=== PATIENT | male | born 1960 | race Caucasian/White ===

== ENCOUNTER 2022-09-12 19:50 | Inpatient (IN) | payer OTHER, SELFPAY ==
[2022-09-12 20:48] VITALS: BP 155/87; PULSE 108; PULSE 117; RESP 12; RESP 16; TEMP 37.1; O2SAT 91; O2SAT 92; BMI 36.1
--- NOTE | 2022-09-12 21:40 | PCM.HP.STD ---
HPI - General General Date of Admission: 09/12/22 Date of Service: 09/13/22 Chief Complaint: Here for rehabilitation. HPI Narrative CHRISTIANO SCALES, is a 61 Male who presents with followin08/13/2022 Admit to [facility]. Abdominal pain for 3 days, Fever for [address] showed acute perforated sigmoid diverticulitis, 3.8cm collection of stool and gas with small amount of pneumoperitoneum. WBC 19.9, Temperature 101.2 Cipro, Flagyl, 1 liter fluid give at outside hospital. Left lower quadrant abdominal pain, nonperitoneal exam. Heart rate 130, Blood pressure 192/91. Start Zosyn, NPO, discussed with general surgery, 1 liter LR given. 08/19/2022 General Surgery performed second exploratory laparotomy, partial colectomy, colostomy. 08/23/2022 Pneumatosis status post exploratory laparotomy, partial colectomy, colostomy creation. 09/09/2022 Infectious Disease saw patient for perforated diverticulitis, covid-19 infection, respiratory failure, suspicion for aspiration pneumonia vs covid19, leukocytosis improved. Zosyn stopped, Meropenem stopped, Fluconazole stopped. Dexamethasone stopped. Chest X-ray showed increasing density opacity left lower lobe. Blood cultures no growth. Tmax 100.6. 09/11/2022 IR aspiration of abscess. Regular diet, Protonix bid. RUY drain x 2. Santyl, Dakins to wound bed bid. Done with antibiotics, f/u cultures from IR aspiration. Medical records limited. 09/12/2022 Admit to TCU with debility, here for rehabilitation, strengthening, prior to discharge home with . [facility] Medical History (Updated 09/12/22 @ 22:[address] Dennis Menezes MD) Acute kidney injury Acute respiratory failure with hypoxia Asthma Debility Diabetes mellitus Diverticulosis Hypertension Left inguinal hernia Perforation of sigmoid colon due to diverticulitis Pneumonia due to COVID-19 virus Home Medications acetaminophen 500 mg tablet 500 mg PO Q6H PRN pain (scale score 1-3) 09/12/22 [History Last Taken Unknown] collagenase clostridium histo. 250 unit/gram topical ointment (Santyl) 1 applic topical BID Wound 09/12/22 [History Last Taken 09/12/22 08:35] finasteride 5 mg tablet 5 mg PO DAILY BPH 09/12/22 [History Last Taken 09/12/22] insulin NPH isoph U-100 human 100 unit/mL (3 mL) subcutaneous pen (Humulin N NPH U-100 Insulin AlokikPen) 6 unit subcut BID Diabetes 09/12/22 [History Last Taken 09/12/22 08:35] losartan 100 mg tablet (Cozaar) 100 mg PO DAILY Blood pressure 09/12/22 [History Last Taken 09/12/22 12:30] oxycodone 5 mg tablet 5 mg PO Q6H PRN pain 09/12/22 [History Last Taken Unknown] pantoprazole 40 mg tablet,delayed release 40 mg PO BID GERD 09/12/22 [History Last Taken Unknown] polyethylene glycol 3350 17 gram oral powder packet 17 g PO DAILY Constipation 09/12/22 [History Last Taken 09/12/22 08:35] sodium hypochlorite 0.125 % solution (Dakin's Solution) 1 applic topical BID Wound 09/12/22 [History Last Taken Unknown] Allergy/AdvReac Type Severity Reaction Status Date / Time aspirin Allergy Intermediate Hives Verified 09/12/22 20:59 iodine Allergy Shortness Verified 09/12/22 20:58 of breath Family History (Updated 09/12/22 @ 21:[address] Dennis Menezes MD) Mother Breast cancer Father Myocardial infarction Hypertension Colon cancer Grandmother Diabetes Grandfather Diabetes Surgical History (Updated 09/12/22 @ 21:[address] Dennis Menezes MD) History of excision of dermoid cyst History of left inguinal hernia repair History of tooth extraction Social History (Updated 09/12/22 @ 21:[address] Dennis Menezes MD) household members: spouse Smoking Status: Never smoker alcohol intake: never substance use type: does not use ROS Constitutional Constitutional: Denies chills, fever(s) or weight gain ENT HEENT: Denies headache(s), nasal congestion or nasal discharge Cardiovascular Cardiovascular: Denies chest pain or palpitations Respiratory/Chest Respiratory/Chest: Denies cough, excessive phlegm production or shortness of breath with exertion Gastrointestinal Gastrointestinal: Denies abdominal pain, nausea or vomiting Genitourinary Genitourinary: Denies dysuria Musculoskeletal Musculoskeletal: Denies joint pain or joint swelling Integumentary Integumentary: Denies rash or wounds Neurologic Neurologic: Denies focal weakness, numbness or tingling Psychiatric Psychiatric: Denies anxiety, auditory hallucinations, depression, homicidal ideation or suicidal ideation Vital Signs Vital Signs Vital Signs: Weight Weight: 108.012 kg Body Mass Index (BMI) 36.1 Physical Exam Const alert General Appearance: cooperative HEENT normocephalic Eyes PERRL and EOMs intact bilaterally Neck supple, no JVD and no carotid bruits Resp normal respiratory effort, normal air movement and clear to auscultation bilaterally Cardio regular rate and regular rhythm GI normal to inspection, nondistended, normoactive bowel sounds, non-tender and non-distended GI Narrative: Midline Abdominal per wound nurse. Left lower quadrant colostomy, RUY drain present. Extremity normal capillary refill General Extremity: Negative for edema Skin no rashes or lesions noted General Skin Exam: no breakdown Psych affect normal Appearance: appropriate Results Lab / Micro Data 09/13/22 05:15 09/13/22 05:15 Assessment & Plan Assessment/Plan (1) Perforation of sigmoid colon due to diverticulitis: (2) Asthma: (3) Diabetes mellitus: (4) Diverticulosis: (5) Hypertension: (6) Left inguinal hernia: (7) Acute kidney injury: (8) Acute respiratory failure with hypoxia: (9) Pneumonia due to COVID-19 virus: (10) Debility: PLAN: Plan 61 year old male with below past medical history hospitalized for perforated diverticulitis requiring partial colectomy, colostomy, complicated by acute respiratory failure with hypoxia, covid19, acute kidney injury, intraabdominal abscess requiring IR aspiration, admitted to TCU with debility, here for rehabilitation, strengthening, prior to discharge home with . Debility - PT/OT. Pain - Tylenol 1000mg q6h prn pain (1-3), Tramadol 50mg q6h prn pain (4-5), Oxycodone 5mg q4h prn pain (6-10). Bowel - Miralax 17gm daily, Magnesium citrate 150ml po x 1 prn. Adult immunization - Administer pneumonia vaccine, covid19 vaccine, flu vaccine as appropriate. DVT prophylaxis - Lovenox 40mg sc daily. Abdominal wound - Santyl topical bid, Dakins topical bid, consult wound nurse. BPH - Finasteride 5mg daily. Diabetes Mellitus II - NPH 6 units bidac. Hypertension - Losartan 100mg daily. GERD - Pantoprazole 40mg bid.
[2022-09-12 22:10] LABS: Bedside Glucose 120 mg/dL (74-106)
[2022-09-12] MEDS: Collagenase 30gm Tube 1 APPLIC TOPICAL (23:08)
[2022-09-13 05:31] LABS: Absolute Lymphocyte Count 1.66 X10^3/uL (0.83-4.51); Absolute Neutrophil Count 6.2 X10^3/uL (2.0-7.7); Basophil# 0.05 X10^3/uL; Basophil% 0.5 % (0-1); Eosinophils% 1.1 % (0-5); Hematocrit 27.1 % (40-54); Hemoglobin 8.3 g/dL (13.0-16.5); Lymphocyte # 1.66 X10^3/ul (0.83-4.51); Lymphocyte % 17.8 % (19-41); Mean Corp Hgb Conc 30.6 g/dL (32-36); Mean Corpuscular Hgb 25.6 pg (27.0-32.0); Mean Corpuscular Volume 83.6 fL (80-94); Mean Platelet Vol. 8.6 fl (6.2-12.0); Monocyte# 1.04 X10^3/uL; Monocyte% 11.2 % (0-10); NRBC Flagged by Analyzer 0 % (0-5); Neutrophil % 66.7 % (47-70); Platelet Count 348 K/mm3 (150-450); RBC Distribution Width CV 14.9 % (11.6-14.6); RBC Distribution Width SD 45.3 fl (35.1-43.9); Red Blood Count 3.24 M/mm3 (4.6-6.2); White Blood Count 9.3 K/mm3 (4.4-11.0)
[2022-09-13 05:54] LABS: Anion Gap 9 (5-15); BUN 7 mg/dL (7-18); BUN/Creat Ratio 13.2 RATIO (10-20); Chloride 100 mmol/L (98-107); Creatinine, Serum 0.53 mg/dL (0.70-1.30); EST Glomerular Filtration Rate 167 mL/min (>60); Est Glom Filt Rate - Afr Amer 203 mL/min (>60); Glucose 116 mg/dL (74-106); Potassium 3.9 mmol/L (3.5-5.1); Sodium Level 134 mmol/L (136-145)
[2022-09-13 06:21] LABS: Bedside Glucose 123 mg/dL (74-106)
[2022-09-13] MEDS: Finasteride 5 MG Tablet PO (06:50)
[2022-09-13] MEDS: Polyethylene Glycol 3350 17 GM PACKET PO (06:50)
[2022-09-13] MEDS: Pantoprazole Sodium 40 MG Tablet PO ×2 (06:51→17:44)
[2022-09-13] MEDS: Enoxaparin 40 MG/0.4 ML Syringe SC (06:54)
[2022-09-13] MEDS: Insulin NPH Human 100 UNITS/ML PEN 6 UNITS SC ×2 (08:01→17:42)
[2022-09-13] MEDS: Tuberculin,Purif.prot.deriv. 50 TU/ML Vial 0.1 ML ID (10:48)
[2022-09-13] MEDS: Ascorbic Acid 500 MG Tablet PO (10:49)
[2022-09-13] MEDS: Collagenase 30gm Tube 1 APPLIC TOPICAL ×2 (11:01→22:00)
[2022-09-13 11:56] LABS: Bedside Glucose 122 mg/dL (74-106)
[2022-09-13] MEDS: Losartan Potassium 100 MG Tablet PO (12:48)
[2022-09-13 12:50] VITALS: BP 141/74; PULSE 102
[2022-09-13] MEDS: metroNIDAZOLE 500 MG Tablet PO ×2 (14:02→22:55)
[2022-09-13] MEDS: levoFLOXacin 500 MG Tablet PO (14:03)
--- NOTE | 2022-09-13 15:39 | CHAPLAIN ---
Type of Pastoral Visit _x__ Initial Visit ___ Follow-up Visit ___ On-call Visit ___ General Patient Visit ___ Spiritual Assessment ___ Family Conference ___ Bereavement ___ Rapid Response ___ Code Blue ___ Other (describe below) Pastoral Care Referral From _x__ Patient ___ Family ___ Nurse ___ Physician ___ Knockdown Worker ___ Mobile Manager ___ Other (describe below) Sacrament/Intervention _x__ Active listening ___ Anointing ___ Religious ___ Bereavement ___ Communion _x__ [place] exploration ___ _x__ Life review _x__ Prayer ___ Reconciliation ___ Sacrament of Sick _x__ Supportive presence ___ Wedding ___ Other (describe below) Pastoral Comments patient explains long hospitalization and now time for recovery and therapy; pt admits to some weariness over this experience and concern about recovery; spouse is with him and he expresses concern for family and taking care of him at this stage in his journey; pt has a good yazidi community foundation but also has concerns about the viability of that spiritism; pt has a new inflatable buildings laminator and he has shown good interest in being supportive; at times pt is tearful when expressing his feelings and situation; offer of presence and prayer is well received; 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
--- NOTE | 2022-09-13 15:39 | CASEMGMT ---
Social Work Met with patient to complete initial assessment. Verified/updated contacts. Discussed code status and MOLST form. Pt became emotional and did not want to make a decision, however, pt did voice not wanting to be on a ventilator again. SW provided emotional support. Educated to keeping pt a full code, but if pt changes his mind and ready to complete MOLST, to notify nursing or this worker. Pt agreed. Educated to MMO CM insurance with [employer]D 09/18, continued stay is not guaranteed with each review, and insurance does not provide any DC notice. SW will continue to follow for DC planning and support. Jordyn Colon ,MEDICAL ADMINISTRATIVE TECHNICIAN BOOKING MANAGER
[2022-09-13 16:00] VITALS: BP 127/68; PULSE 104; RESP 16; TEMP 36.6; O2SAT 95
--- NOTE | 2022-09-13 16:13 | NURSING ---
PT DRESSING FELL OUT WHEN DOING THERAPY FOR FIRST TIME. RN AND THIS NURSE IN ROOM TO REDO DRESSING. PT TO DO THERAPY AGAIN AND THIS NURSE PUT A MESH PANTY WITH CROTCH CUT OUT OVER DRESSING AREA AND APPLIED NATANAEL WRAP AROUND AREA LOOSELY. AFTER PT WALKED DRESSING STAYED THIS TIME. REMOVED NATANAEL WRAP WHEN PT IN RECLINER. THERE IS ALSO A BINDER IN PT CLOSET IF NEEDED. RN AWARE
--- NOTE | 2022-09-13 16:22 | PCM.PN.DRR ---
TCU RX Drug Regimen Review Subjective/Objective Subjective/Objective: Subjective: RD is a 61 Male who presents with abdominal pain for 3 days and fever for 1 day. He underwent general surgery on 08/23/22 for perforated sigmoid diverticulitis. Infectious Disease saw the patient on 09/09/22 for perforated diverticulitis, covid 19 infections, respiratory failure, and a suspicion for aspiration pneumonia. Admitted to the TCU on 09/12/22 for rehabilitation and strengthening prior to discharge with . Objective: Allergies aspirin Allergy (Intermediate, Verified 09/12/22 20:59) Hives Swelling Poultry Allergy (Unknown, Verified 09/13/22 13:52) Other iodine Allergy (Verified 09/12/22 20:58) Shortness of breath Current Medications Generic Name Dose Route Start Last Admin Trade Name Freq PRN Reason Stop Dose Admin Acetaminophen 1,000 mg 09/12/22 22:08 Acetaminophen 500 Mg Tablet PO Q6H PRN PRN pain (scale score 1-3) Ascorbic Acid 500 mg 09/13/22 08:00 09/13/22 10:49 Ascorbic Acid 500 Mg Tablet PO 500 mg BREAKFAST BRETT Administration Calamine/Phenol 1 applic 09/13/22 10:00 Menthol/Lanolin/Calamine/Znox 113 Gm Tube TOPICAL BID BRETT Protocol Collagenase 1 applic 09/12/22 22:00 09/13/22 11:01 Collagenase 30gm Tube TOPICAL 09/22/22 18:01 1 applic BID BRETT Administration Protocol Finasteride 5 mg 09/13/22 06:00 09/13/22 06:50 Finasteride 5 Mg Tablet PO 5 mg DAILY BRETT Administration Insulin Human NPH 6 units 09/13/22 07:00 09/13/22 08:01 Insulin Nph Human 100 Units/Ml Pen SC 6 u BIDAC BRETT Administration Levofloxacin 500 mg 09/13/22 12:00 09/13/22 14:03 Levofloxacin 500 Mg Tablet PO 09/27/22 12:01 500 mg DAILY@0600 BRETT Administration Losartan Potassium 100 mg 09/13/22 12:00 09/13/22 12:48 Losartan Potassium 100 Mg Tablet PO 100 mg 1200 BRETT Administration Magnesium Citrate 150 ml 09/12/22 22:07 Magnesium Citrate 300 Ml PO X1 PRN Constipation Metronidazole 500 mg 09/13/22 14:00 09/13/22 14:02 Metronidazole 500 Mg Tablet PO 09/27/22 14:01 500 mg TID BRETT Administration Oxycodone HCl 5 mg 09/12/22 22:08 Oxycodone 5 Mg Tablet PO Q4H PRN PRN Pain Score 6-10 Pantoprazole Sodium 40 mg 09/13/22 06:00 09/13/22 06:51 Pantoprazole Sodium 40 Mg Tablet PO 40 mg BID BRETT Administration Polyethylene Glycol 17 gm 09/13/22 06:00 09/13/22 06:50 Polyethylene Glycol 3350 17 Gm Packet PO 17 gm DAILY BRETT Administration Polysaccharide Iron Complex 150 mg 09/14/22 08:00 Iron Polysaccharide Complex 150 Mg Capsule PO DAILY [facility] Sodium Hypochlorite 1 applic 09/13/22 22:00 Dakin's Adrianna Half Strength (=0.25%) TOPICAL BID [facility] Tramadol HCl 50 mg 09/12/22 22:07 Tramadol 50 Mg Tablet PO Q6H PRN PRN Pain Score 4-5 Tuberculin PPD 0.1 ml 09/20/22 10:00 Tuberculin,Purif.Prot.Deriv. 50 Tu/Ml Vial ID 09/20/22 10:01 X1 ONE Problem List (Updated 09/12/22 @ 22:[address] Dennis Menezes MD) Debility (Acute) Pneumonia due to COVID-19 virus (Acute) Acute respiratory failure with hypoxia (Acute) Acute kidney injury (Acute) Left inguinal hernia (Acute) Hypertension (Chronic) Diverticulosis (Acute) Diabetes mellitus (Acute) Asthma (Acute) Perforation of sigmoid colon due to diverticulitis (Acute) Vital Signs Temp Pulse Resp BP Pulse Ox O2 Del Method 98.8 F 102 H 16 141/74 H 92 Room Air 09/12/22 20:48 09/13/22 12:50 09/12/22 20:48 09/13/22 12:50 09/12/22 20:48 09/12/22 20:48 Oxygen Delivery Method Room Air Weight: 108 kg Body Mass Index (BMI) 36.1 Sodium 134 mmol/L (136-145) L 09/13/22 05:15 Potassium 3.9 mmol/L (3.5-5.1) 09/13/22 05:15 Chloride 100 mmol/L (98-107) 09/13/22 05:15 Carbon Dioxide 25.0 mmol/L (21.0-32.0) 09/13/22 05:15 Anion Gap 9 (5-15) 09/13/22 05:15 BUN 7 mg/dL (7-18) 09/13/22 05:15 Creatinine 0.53 mg/dL (0.70-1.30) L 09/13/22 05:15 Est GFR (MDRD) Af Amer 203 mL/min (>60) 09/13/22 05:15 Est GFR (MDRD) Non-Af 167 mL/min (>60) 09/13/22 05:15 BUN/Creatinine Ratio 13.2 RATIO (10-20) 09/13/22 05:15 Glucose 116 mg/dL (74-106) H 09/13/22 05:15 Assessment & Plan 1. Pain: Tylenol 1000 mg PO Q6H PRN (pain 1-3). Tramadol 50 mg PO Q6H PRN (pain 4-5). Oxycodone 5 mg PO Q4H PRN (pain 6-10). Please monitor total daily intake of acetaminophen, pain levels, PRN usage, constipation, and respiratory depression. Please monitor for drowsiness and falls (BEERs medication). (The patient has not had any PRN pain medications since admission on 09/12).? 2. Bowel: Miralax 17 g PO daily. Magnesium citrate 150 mL PO PRN. Please monitor for constipation, diarrhea and electrolyte disturbances.? 3. DVT Prophylaxis: Lovenox 40 mg SC daily. Please monitor for S/S of bleeding, hemoglobin (last: 8.3 g/dL), platelets (last: 348,000) and bruising, renal function, confusion and anemia.? 4. Diabetes Mellitus II: NPH 6 units SC BIDAC. Please monitor A1c values, glucose values (last: 123 mg/dL), S/S of hypoglycemia and headache.? 5. Hypertension: Losartan 100 mg PO daily. Please monitor for dizziness, angioedema (black box warning), liver function, and blood pressure (last: 155/87).? 6. GERD: Pantoprazole 40 mg PO BID. Please monitor for headaches, constipation, diarrhea, and S/S of breakthrough GERD. 7. BPH: Finasteride 5 mg PO daily. Please monitor for gynecomastia and rashes.? 8. Abdominal wound: Santyl topical BID. Dakins topical BID. Please monitor for S/S of worsening infection and skin irritation.? Assessment/Plan for indications treated with psychotropic medications None Medical chart and medication regimen reviewed. The following medication irregularities or issues were identified 1. Currently taking losartan for hypertension but his blood pressure is not controlled (last: 155). Please consider increasing therapy to control blood pressure. Thanks. 2. Currently on insulin for type 2 diabetes mellitus but does not have an A1c value on file. Please consider obtaining an A1c value. Thanks. Date Date of Note:: 09/13/22
[2022-09-13 16:54] LABS: Bedside Glucose 117 mg/dL (74-106)
[2022-09-13] MEDS: Menthol/Lanolin/Calamine/Znox 113 GM Tube 1 APPLIC TOPICAL ×2 (17:42→22:00)
[2022-09-13 22:00] VITALS: PULSE 100; RESP 16; O2SAT 93
[2022-09-13] MEDS: DAKIN'S SOL HALF STRENGTH (=0.25%) 1 APPLIC TOPICAL (22:00)
[2022-09-13 22:23] LABS: Bedside Glucose 114 mg/dL (74-106)
[2022-09-14] MEDS: Finasteride 5 MG Tablet PO (05:51)
[2022-09-14] MEDS: Polyethylene Glycol 3350 17 GM PACKET PO (05:51)
[2022-09-14] MEDS: metroNIDAZOLE 500 MG Tablet PO ×3 (05:51→20:33)
[2022-09-14] MEDS: Pantoprazole Sodium 40 MG Tablet PO ×2 (05:51→18:06)
[2022-09-14] MEDS: levoFLOXacin 500 MG Tablet PO (05:51)
[2022-09-14 05:56] LABS: Hematocrit 26.7 % (40-54); Hemoglobin 8.1 g/dL (13.0-16.5)
[2022-09-14] MEDS: Menthol/Lanolin/Calamine/Znox 113 GM Tube 1 APPLIC TOPICAL ×2 (05:56→18:09)
[2022-09-14 06:36] LABS: Bedside Glucose 111 mg/dL (74-106)
[2022-09-14] MEDS: Insulin NPH Human 100 UNITS/ML PEN 6 UNITS SC ×2 (10:01→18:06)
[2022-09-14] MEDS: Ascorbic Acid 500 MG Tablet PO (10:02)
[2022-09-14] MEDS: Iron Polysaccharide Complex 150 MG CAPSULE PO (10:02)
[2022-09-14] MEDS: DAKIN'S SOL HALF STRENGTH (=0.25%) 1 APPLIC TOPICAL ×3 (10:06→20:32)
[2022-09-14] MEDS: Collagenase 30gm Tube 1 APPLIC TOPICAL ×2 (10:07→20:40)
--- NOTE | 2022-09-14 10:18 | NS ---
MST score = 9 d/t decreased appetite/wt and unknown UBW - indicates increased risk of malnutrition. Provided written copy of daily specials/first choice menu w/ instructions on how to order.
--- NOTE | 2022-09-14 10:54 | WOUNDNOTE ---
wound photo: abdomen
--- NOTE | 2022-09-14 11:13 | NURSING ---
Data Migration Lead Note; Activity Asset: huber Landrum is independent in his choice of daily activities. He has a smartphone and uses a tablet to read books. His family will visit daily and will bring items he may need. He stated due to his wounds he prefers to stay in his room at this time. He is also allergic to animal dander and can not have visit from the therapy dog.
[2022-09-14 11:24] LABS: Bedside Glucose 126 mg/dL (74-106)
[2022-09-14] MEDS: Losartan Potassium 100 MG Tablet PO (12:03)
[2022-09-14 15:15] VITALS: BP 131/78; PULSE 111; RESP 22; TEMP 36.6; O2SAT 95
[2022-09-14 16:35] LABS: Bedside Glucose 115 mg/dL (74-106)
[2022-09-14 20:15] VITALS: O2SAT 96
[2022-09-14 22:32] LABS: Bedside Glucose 123 mg/dL (74-106)
[2022-09-15] MEDS: Polyethylene Glycol 3350 17 GM PACKET PO (05:24)
[2022-09-15] MEDS: Finasteride 5 MG Tablet PO (05:25)
[2022-09-15] MEDS: levoFLOXacin 500 MG Tablet PO (05:25)
[2022-09-15] MEDS: Pantoprazole Sodium 40 MG Tablet PO ×2 (05:25→17:33)
[2022-09-15] MEDS: Iron Polysaccharide Complex 150 MG CAPSULE PO (05:25)
[2022-09-15] MEDS: metroNIDAZOLE 500 MG Tablet PO ×3 (05:26→21:01)
[2022-09-15 06:43] LABS: Bedside Glucose 113 mg/dL (74-106)
[2022-09-15 07:12] LABS: Hematocrit 26.9 % (40-54); Hemoglobin 8.3 g/dL (13.0-16.5)
[2022-09-15] MEDS: Insulin NPH Human 100 UNITS/ML PEN 6 UNITS SC ×2 (08:35→17:33)
[2022-09-15] MEDS: Ascorbic Acid 500 MG Tablet PO (08:36)
[2022-09-15] MEDS: Menthol/Lanolin/Calamine/Znox 113 GM Tube 1 APPLIC TOPICAL ×2 (08:46→17:38)
[2022-09-15] MEDS: Collagenase 30gm Tube 1 APPLIC TOPICAL ×2 (10:55→21:01)
[2022-09-15] MEDS: DAKIN'S SOL HALF STRENGTH (=0.25%) 1 APPLIC TOPICAL ×2 (10:55→20:59)
[2022-09-15 11:25] LABS: Bedside Glucose 123 mg/dL (74-106)
[2022-09-15] MEDS: Losartan Potassium 100 MG Tablet PO (11:48)
[2022-09-15 13:32] VITALS: BP 143/72; PULSE 103; RESP 16; TEMP 36.4; O2SAT 95
[2022-09-15 16:38] LABS: Bedside Glucose 126 mg/dL (74-106)
[2022-09-15 22:07] LABS: Bedside Glucose 117 mg/dL (74-106)
[2022-09-16] MEDS: Polyethylene Glycol 3350 17 GM PACKET PO (05:48)
[2022-09-16] MEDS: Pantoprazole Sodium 40 MG Tablet PO ×2 (05:49→16:53)
[2022-09-16] MEDS: Finasteride 5 MG Tablet PO (05:49)
[2022-09-16] MEDS: metroNIDAZOLE 500 MG Tablet PO ×3 (05:49→21:48)
[2022-09-16] MEDS: Iron Polysaccharide Complex 150 MG CAPSULE PO (05:49)
[2022-09-16] MEDS: levoFLOXacin 500 MG Tablet PO (05:49)
[2022-09-16] MEDS: Menthol/Lanolin/Calamine/Znox 113 GM Tube 1 APPLIC TOPICAL ×2 (05:54→16:58)
[2022-09-16 06:50] LABS: Bedside Glucose 117 mg/dL (74-106)
[2022-09-16] MEDS: Ascorbic Acid 500 MG Tablet PO (07:42)
[2022-09-16] MEDS: Insulin NPH Human 100 UNITS/ML PEN 6 UNITS SC ×2 (07:42→16:52)
[2022-09-16] MEDS: DAKIN'S SOL HALF STRENGTH (=0.25%) 1 APPLIC TOPICAL ×2 (10:44→21:48)
[2022-09-16] MEDS: Collagenase 30gm Tube 1 APPLIC TOPICAL ×2 (10:44→21:48)
[2022-09-16] MEDS: Losartan Potassium 100 MG Tablet PO (11:43)
[2022-09-16 11:44] LABS: Bedside Glucose 96 mg/dL (74-106)
[2022-09-16 14:56] VITALS: BP 128/75; PULSE 112; RESP 16; TEMP 36.6; O2SAT 94
[2022-09-16 16:55] LABS: Bedside Glucose 166 mg/dL (74-106)
[2022-09-16 21:00] VITALS: O2SAT 97
[2022-09-16 21:40] LABS: Bedside Glucose 132 mg/dL (74-106)
[2022-09-17] MEDS: Finasteride 5 MG Tablet PO (05:36)
[2022-09-17] MEDS: Polyethylene Glycol 3350 17 GM PACKET PO (05:36)
[2022-09-17] MEDS: levoFLOXacin 500 MG Tablet PO (05:37)
[2022-09-17] MEDS: Iron Polysaccharide Complex 150 MG CAPSULE PO (05:37)
[2022-09-17] MEDS: metroNIDAZOLE 500 MG Tablet PO ×3 (05:37→21:37)
[2022-09-17] MEDS: Pantoprazole Sodium 40 MG Tablet PO ×2 (05:37→18:04)
[2022-09-17 05:48] LABS: Hematocrit 27.2 % (40-54); Hemoglobin 8.5 g/dL (13.0-16.5)
[2022-09-17] MEDS: Menthol/Lanolin/Calamine/Znox 113 GM Tube 1 APPLIC TOPICAL (05:54)
[2022-09-17 06:23] LABS: Bedside Glucose 105 mg/dL (74-106)
[2022-09-17] MEDS: Insulin NPH Human 100 UNITS/ML PEN 6 UNITS SC ×2 (08:58→18:04)
[2022-09-17] MEDS: Ascorbic Acid 500 MG Tablet PO (09:39)
--- NOTE | 2022-09-17 09:54 | SP.MBSS_ITS ---
Modified Barium Swallow Patient Information Study Date: 09/17/22 Study Time: 09:00 Direct Billable Minutes: 66 Total Minutes procedure & reportin Diagnosis: PNA due to COVID-19(J12.89),Acute Res. Failure, w/hypox.(J96.01) Referring Physician: Dennis Menezes Chi Reason for Referral: Objectively assess swallow function, assess risk for aspiration, and determine recommendations for least restrictive diet textures and compensatory strategies to improve safety of swallow. Medical History: Diallo Duque is a 61-year-old male with a PMH of Acute kidney injury, Acute respiratory failure with hypoxia, Asthma, Debility, Diabetes mellitus, Diverticulosis, Hypertension, Left inguinal hernia, Perforation of sigmoid colon due to diverticulitis, and Pneumonia due to COVID-19 virus. See PMH in the H&P for full report. Patient presented to [facility] on TCU, 09/12/22, with debility, here for rehabilitation, strengthening, prior to discharge home with . Patient referred for speech therapy evaluation due to concerns for aspiration pneumonia, noted by previous infectious disease hospital at [facility]. Work up while at [facility], on 09/09/22, included chest X-ray with increasing density opacity left lower lobe. Patient evaluated by speech therapy on 09/15/22 and recommended for regular textures, thin liquids. Per most recent TCU Shift Clinical Findings, on 09/16/22, patient?s lungs are clear, and patient on room air. Patient recommended for MBSS due to previous concerns for aspiration PNA, and recent chest x-ray. Current Diet Ordered: Regular Textures/ Thin Liquids Dentition: Edentulous Comment: Patient has dentures but prefers not to use them. Respiratory Status: Oxygenating on Room Air Penetration-Aspiration Scale Penetration-Aspiration Scale: OBJECTIVE ASSESSMENT OF SWALLOW FUNCTION (QUANTITATIVE ? PER TRIAL): PENETRATION / ASPIRATION SCALE (MARTIN): 1 = does not enter airway 2 = enters airway/above vocal folds/ejected 3 = enters airway/above vocal folds/not ejected 4 = enters airway/contacts vocal folds/ejected 5 = enters airway/contacts vocal folds/not ejected 6 = enters airway/below vocal folds/ejected 7 = enters airway/below vocal folds/not ejected despite effort 8 = enters airway/below vocal folds/no effort VIDEOFLOROSCOPIC SCALE SCORE (MARTIN): Grade I = aspiration of material that has penetrated into the laryngeal vestibule, intact cough reflex Grade II = aspiration < 10 % of the bolus, intact cough reflex Grade III = aspiration of < 10 % of the bolus, reduced cough reflex or aspiration of > 10 % of the bolus, intact cough reflex Grade IV = aspiration of > 10 % of the bolus, reduced cough reflex Penetration-Aspiration Scale Score Thin Liquid via teaspoon: Result: 1= does not enter airway Thin Liquid via teaspoon Trial 2: Result: 1= does not enter airway Thin Liquid via single cup sip: Result: 1= does not enter airway Eros Thick Liquid via single cup sip: Result: 1= does not enter airway Pudding w/esophageal screen : Result: 1= does not enter airway 1/4 Cookie: Result: 1= does not enter airway Thin Liquid via sequential straw sips: Result: 1= does not enter airway Oral Phase Labial Seal: No Labial Escape Tongue Control During Bolus Hold: Cohesive bolus between tongue to palatal seal Bolus Preparation/Mastication: Disorganized chewing/mashing with solid pieces of bolus unchewed Bolus Transport/Lingual Motion: Brisk tongue motion Oral Residue: Trace residue lining oral structures Pharyngeal Phase Initiation of Pharyngeal Swallow: Bolus head at posterior angle of ramus at first hyoid excursion Soft Palate Elevation: No bolus between soft palate and pharyngeal wall Laryngeal Elevation: Comp. Superior move thyroid cart w/comp. apprx arytenoid cart-epig pet Anterior Hyoid Excursion: Complete anterior movement Epiglottic Movement: Complete inversion Laryngeal Vestibule Closure at Height of Swallow: Complete; no air/contrast in laryngeal vestibule Pharyngeal Stripping Wave: Present - complete Pharyngoesophageal Segment Opening: Complete distension and complete duration; no obstruction of flow Tongue Base Retraction: Trace column of contrast between tongue base & post. pharyngeal wall Pharyngeal Residue: Trace residue within or on pharyngeal structures Esophageal Phase Esophageal Clearance: Esophageal retention w/ retrograde flow below pharyngoesophageal seg. Diagnosis/Impression Diagnosis: Mild Oral Dysphagia (R13.11) Impression: The oral phase is grossly within normal limits with... -Trace oral residue after the swallow. -Solid piece of cookie left un-chewed. Patient is edentulous and reports he prefers not to wear dentures. The pharyngeal phase is grossly within normal limits with... -Mildly decreased tongue base retraction, with resulting mild pharyngeal residues after the swallow. -No aspiration or penetration observed during the study. The esophageal phase is grossly within normal limits with... -Mild esophageal retrograde flow of pudding in lower esophagus with flow remaining well below UES. Recommendations Diet: Thin Liquids Comment: Easy to Chew Textures Compensatory Strategies: Slow Rate and Sitting upright Recommend Repeat Modified Barium Swallow: No Need for Skilled Speech Therapy Services: Yes Comment: Will recommend the patient for dysphagia therapy, for 1-2 follow-up sessions, to ensure diet tolerance. The patient would benefit from thorough education regarding diet recommendations. Education Completed: 1. Described result of evaluation., 2. Pt understands evaluation & agrees with goals and treatment plan. and 7. Pt requires further education on strategies & risks. Status Active ST Patient: Active Contact Information [facility] Speech Therapy:: Regan Rothman M.A. CF-THERAPY AIDE Speech-Language Pathologist [facility] [address] [place] [address] [email or web address]
[2022-09-17 11:52] LABS: Bedside Glucose 106 mg/dL (74-106)
[2022-09-17] MEDS: Losartan Potassium 100 MG Tablet PO (13:13)
[2022-09-17] MEDS: Collagenase 30gm Tube 1 APPLIC TOPICAL ×2 (13:14→22:22)
[2022-09-17] MEDS: DAKIN'S SOL HALF STRENGTH (=0.25%) 1 APPLIC TOPICAL ×2 (13:14→22:22)
--- NOTE | 2022-09-17 13:57 | WOUNDNOTE ---
wound photo: abdomen
--- NOTE | 2022-09-17 13:58 | WOUNDNOTE ---
stoma photo: left abdomen
[2022-09-17 14:15] VITALS: BP 125/68; PULSE 112; RESP 16; TEMP 36.8; O2SAT 93
--- NOTE | 2022-09-17 14:21 | WOUNDNOTE ---
Removed ostomy appliance. there was a moderate amount of thick brown stool in the appliance. there is some mucocutaneous separation noted from approx 2 o'clock to 7 o'clock. patient states he has not been eating real well. states he is limited on the choices for food. stoma is beefy red and well budded. cleansed skin with warm water. pat dry. placed Aquacel AG to the mucocutaneous separation and covered with a thin hydrocolloid dressing. cut the flange to size and placed around stoma. snapped the pouch in place. currently using a two piece flat Pomaria appliance. used small amount of stoma paste. pt tolerated well. observed and states she wants to try changing the appliance next time. will plan on appliance change . pt and appreciative. deny questions or concerns at this time. see stoma photo.
[2022-09-17 16:59] LABS: Bedside Glucose 107 mg/dL (74-106)
[2022-09-17 21:51] LABS: Bedside Glucose 122 mg/dL (74-106)
[2022-09-18 01:21] VITALS: BMI 35.6
[2022-09-18 06:42] LABS: Bedside Glucose 108 mg/dL (74-106)
[2022-09-18] MEDS: Menthol/Lanolin/Calamine/Znox 113 GM Tube 1 APPLIC TOPICAL ×2 (06:43→17:49)
[2022-09-18] MEDS: metroNIDAZOLE 500 MG Tablet PO ×3 (06:43→22:37)
[2022-09-18] MEDS: levoFLOXacin 500 MG Tablet PO (06:43)
[2022-09-18] MEDS: Pantoprazole Sodium 40 MG Tablet PO ×2 (06:43→17:48)
[2022-09-18] MEDS: Finasteride 5 MG Tablet PO (06:43)
[2022-09-18] MEDS: Iron Polysaccharide Complex 150 MG CAPSULE PO (06:43)
[2022-09-18] MEDS: Polyethylene Glycol 3350 17 GM PACKET PO (06:43)
[2022-09-18] MEDS: Insulin NPH Human 100 UNITS/ML PEN 6 UNITS SC ×2 (08:05→17:47)
[2022-09-18] MEDS: Ascorbic Acid 500 MG Tablet PO (08:08)
[2022-09-18 10:35] VITALS: PULSE 106; RESP 18; O2SAT 93
--- NOTE | 2022-09-18 10:49 | CASEMGMT ---
Social Work BIMS () and PHQ-9 (08/21) completed for MDS assessment. Pt expresses loss of independence d/t reason for admission. Jordyn Colon, POTATO INSPECTOR MANAGER CODING
[2022-09-18] MEDS: Collagenase 30gm Tube 1 APPLIC TOPICAL ×2 (11:25→22:37)
[2022-09-18] MEDS: DAKIN'S SOL HALF STRENGTH (=0.25%) 1 APPLIC TOPICAL ×2 (11:26→22:37)
[2022-09-18] MEDS: Losartan Potassium 100 MG Tablet PO (11:31)
[2022-09-18 11:33] VITALS: BP 128/75; PULSE 98
[2022-09-18 11:38] LABS: Bedside Glucose 119 mg/dL (74-106)
[2022-09-18 15:34] VITALS: BP 122/70; PULSE 106; RESP 16; TEMP 36.8; O2SAT 95
[2022-09-18 16:35] LABS: Bedside Glucose 129 mg/dL (74-106)
[2022-09-18 22:10] LABS: Bedside Glucose 120 mg/dL (74-106)
[2022-09-19 05:46] LABS: Hematocrit 28.1 % (40-54); Hemoglobin 8.8 g/dL (13.0-16.5)
[2022-09-19] MEDS: Menthol/Lanolin/Calamine/Znox 113 GM Tube 1 APPLIC TOPICAL ×2 (05:58→17:53)
[2022-09-19] MEDS: Finasteride 5 MG Tablet PO (05:59)
[2022-09-19] MEDS: Iron Polysaccharide Complex 150 MG CAPSULE PO (05:59)
[2022-09-19] MEDS: Pantoprazole Sodium 40 MG Tablet PO ×2 (05:59→17:51)
[2022-09-19] MEDS: Polyethylene Glycol 3350 17 GM PACKET PO (05:59)
[2022-09-19] MEDS: metroNIDAZOLE 500 MG Tablet PO ×3 (05:59→22:32)
[2022-09-19] MEDS: levoFLOXacin 500 MG Tablet PO (05:59)
[2022-09-19 06:34] LABS: Bedside Glucose 117 mg/dL (74-106)
[2022-09-19] MEDS: Insulin NPH Human 100 UNITS/ML PEN 6 UNITS SC ×2 (07:55→17:50)
[2022-09-19] MEDS: Ascorbic Acid 500 MG Tablet PO (07:56)
--- NOTE | 2022-09-19 08:42 | NURSING ---
Hydrotechnical Specialist Note; MDS Complete
[2022-09-19 09:40] VITALS: PULSE 98; RESP 16; O2SAT 94
--- NOTE | 2022-09-19 10:57 | CASEMGMT ---
Social Work Completed advanced directives with pt. Original and copies provided to pt. Copy placed on chart. Jordyn Colon, BELLY PACKER FIELD TECHNICAL ASSISTANT
[2022-09-19 11:14] LABS: Bedside Glucose 114 mg/dL (74-106)
[2022-09-19] MEDS: DAKIN'S SOL HALF STRENGTH (=0.25%) 1 APPLIC TOPICAL ×2 (11:18→22:15)
[2022-09-19] MEDS: Losartan Potassium 100 MG Tablet PO (11:18)
[2022-09-19] MEDS: Collagenase 30gm Tube 1 APPLIC TOPICAL ×2 (11:18→22:16)
--- NOTE | 2022-09-19 13:15 | CASEMGMT ---
Social Work IDT met with patient and for care plan meeting. Discussed patient's progress in PT/OT/SN. Educated to MMO CM insurance with [employer] 09/24 and continued stay is not guaranteed with each review. Noted insurance does not provide notice for LCD. Pt's goal is to return home with and adult children with HHC for ongoing wound care. SW will continue to follow for DC planning. GOMEZ CeballosW
[2022-09-19 13:34] VITALS: BP 122/75; PULSE 94; RESP 16; TEMP 36.3; O2SAT 99
[2022-09-19 17:18] LABS: Bedside Glucose 101 mg/dL (74-106)
[2022-09-19 21:55] LABS: Bedside Glucose 118 mg/dL (74-106)
[2022-09-20 05:58] LABS: Absolute Lymphocyte Count 1.94 X10^3/uL (0.83-4.51); Absolute Neutrophil Count 4.6 X10^3/uL (2.0-7.7); Basophil# 0.06 X10^3/uL; Basophil% 0.8 % (0-1); Eosinophil# 0.11 X10^3/uL; Eosinophils% 1.4 % (0-5); Hematocrit 29.3 % (40-54); Hemoglobin 8.7 g/dL (13.0-16.5); Lymphocyte # 1.94 X10^3/ul (0.83-4.51); Lymphocyte % 24.7 % (19-41); Mean Corp Hgb Conc 29.7 g/dL (32-36); Mean Corpuscular Hgb 25.3 pg (27.0-32.0); Mean Corpuscular Volume 85.2 fL (80-94); Mean Platelet Vol. 9.7 fl (6.2-12.0); Monocyte# 0.99 X10^3/uL; Monocyte% 12.6 % (0-10); NRBC Flagged by Analyzer 0 % (0-5); Neutrophil # 4.57 X10^3/uL (2.7-7.7); Neutrophil % 58.2 % (47-70); Platelet Count 349 K/mm3 (150-450); RBC Distribution Width CV 15.8 % (11.6-14.6); RBC Distribution Width SD 47.8 fl (35.1-43.9); Red Blood Count 3.44 M/mm3 (4.6-6.2); White Blood Count 7.9 K/mm3 (4.4-11.0)
[2022-09-20] MEDS: metroNIDAZOLE 500 MG Tablet PO ×3 (06:09→21:30)
[2022-09-20] MEDS: Pantoprazole Sodium 40 MG Tablet PO ×2 (06:09→17:47)
[2022-09-20] MEDS: levoFLOXacin 500 MG Tablet PO (06:09)
[2022-09-20] MEDS: Iron Polysaccharide Complex 150 MG CAPSULE PO (06:09)
[2022-09-20] MEDS: Finasteride 5 MG Tablet PO (06:09)
[2022-09-20] MEDS: Polyethylene Glycol 3350 17 GM PACKET PO (06:10)
[2022-09-20] MEDS: Menthol/Lanolin/Calamine/Znox 113 GM Tube 1 APPLIC TOPICAL ×2 (06:16→17:47)
[2022-09-20 06:25] LABS: Anion Gap 5 (5-15); BUN 12 mg/dL (7-18); BUN/Creat Ratio 20.3 RATIO (10-20); Calcium,Total 8.4 mg/dL (8.5-10.1); Chloride 103 mmol/L (98-107); Creatinine, Serum 0.59 mg/dL (0.70-1.30); EST Glomerular Filtration Rate 148 mL/min (>60); Est Glom Filt Rate - Afr Amer 179 mL/min (>60); Estimated Creatinine Clearance 128.81 ml/min; Glucose 116 mg/dL (74-106); Potassium 3.7 mmol/L (3.5-5.1); Sodium Level 136 mmol/L (136-145)
[2022-09-20 06:36] LABS: Bedside Glucose 110 mg/dL (74-106)
[2022-09-20] MEDS: Insulin NPH Human 100 UNITS/ML PEN 6 UNITS SC ×2 (07:45→17:46)
[2022-09-20] MEDS: Ascorbic Acid 500 MG Tablet PO (07:47)
[2022-09-20 10:00] VITALS: PULSE 111; RESP 18; O2SAT 96
[2022-09-20] MEDS: DAKIN'S SOL HALF STRENGTH (=0.25%) 1 APPLIC TOPICAL ×2 (11:00→21:32)
[2022-09-20] MEDS: Collagenase 30gm Tube 1 APPLIC TOPICAL ×2 (11:00→21:31)
[2022-09-20] MEDS: Tuberculin,Purif.prot.deriv. 50 TU/ML Vial 0.1 ML ID (11:01)
[2022-09-20] MEDS: Losartan Potassium 100 MG Tablet PO (11:05)
[2022-09-20 11:11] VITALS: BP 130/75; PULSE 109
[2022-09-20 12:12] LABS: Bedside Glucose 115 mg/dL (74-106)
--- NOTE | 2022-09-20 14:47 | WOUNDNOTE ---
DOUGLAS Duran had changed the abdominal wound dressing today. This nurse changed the colostomy appliance with pt's today. was able to change appliance with minimal assistance. states she would like to practice a few more times if possible. will plan to change appliance on Mondays and .
[2022-09-20 16:00] VITALS: BP 128/69; PULSE 105; RESP 16; TEMP 36.3; O2SAT 93
[2022-09-20 16:58] LABS: Bedside Glucose 97 mg/dL (74-106)
[2022-09-20 21:37] LABS: Bedside Glucose 158 mg/dL (74-106)
[2022-09-21] MEDS: Finasteride 5 MG Tablet PO (05:37)
[2022-09-21] MEDS: Pantoprazole Sodium 40 MG Tablet PO ×2 (05:37→17:48)
[2022-09-21] MEDS: Polyethylene Glycol 3350 17 GM PACKET PO (05:38)
[2022-09-21] MEDS: metroNIDAZOLE 500 MG Tablet PO ×3 (05:38→22:31)
[2022-09-21] MEDS: levoFLOXacin 500 MG Tablet PO (05:38)
[2022-09-21] MEDS: Iron Polysaccharide Complex 150 MG CAPSULE PO (05:38)
[2022-09-21] MEDS: Menthol/Lanolin/Calamine/Znox 113 GM Tube 1 APPLIC TOPICAL ×2 (05:40→17:46)
[2022-09-21 06:29] LABS: Hematocrit 28.7 % (40-54); Hemoglobin 8.8 g/dL (13.0-16.5)
[2022-09-21 06:37] LABS: Bedside Glucose 113 mg/dL (74-106)
[2022-09-21] MEDS: Ascorbic Acid 500 MG Tablet PO (08:03)
[2022-09-21] MEDS: Insulin NPH Human 100 UNITS/ML PEN 6 UNITS SC ×2 (08:03→17:46)
[2022-09-21 11:54] LABS: Bedside Glucose 104 mg/dL (74-106)
[2022-09-21] MEDS: Losartan Potassium 100 MG Tablet PO (11:56)
[2022-09-21 11:59] VITALS: BP 122/77; PULSE 109
--- NOTE | 2022-09-21 12:00 | NURSING ---
PER THERAPY, PT IS ALLOWED UP IN ROOM,MANZO AND WHEEL CHAIR WITH ONLY! WILL APPLY NATANAEL WRAP TO ABDOMINAL AREA BEFORE LETTING PT UP. RN AWARE
[2022-09-21] MEDS: DAKIN'S SOL HALF STRENGTH (=0.25%) 1 APPLIC TOPICAL ×2 (14:31→22:32)
[2022-09-21] MEDS: Collagenase 30gm Tube 1 APPLIC TOPICAL ×2 (14:32→22:32)
[2022-09-21 14:56] VITALS: BP 140/71; PULSE 109; RESP 16; TEMP 36.5; O2SAT 95
--- NOTE | 2022-09-21 15:03 | NURSING ---
DRESSING CHANGED TO PT ABDOMINAL,AND 2 DRAIN AREAS PER ORDERS. NO S/S OF INFECTION. PT TOLERATED WELL.
[2022-09-21 16:43] LABS: Bedside Glucose 125 mg/dL (74-106)
[2022-09-21 22:28] LABS: Bedside Glucose 138 mg/dL (74-106)
[2022-09-22] MEDS: Polyethylene Glycol 3350 17 GM PACKET PO (05:27)
[2022-09-22] MEDS: Finasteride 5 MG Tablet PO (05:28)
[2022-09-22] MEDS: levoFLOXacin 500 MG Tablet PO (05:28)
[2022-09-22] MEDS: metroNIDAZOLE 500 MG Tablet PO ×3 (05:28→21:51)
[2022-09-22] MEDS: Pantoprazole Sodium 40 MG Tablet PO ×2 (05:28→17:44)
[2022-09-22] MEDS: Iron Polysaccharide Complex 150 MG CAPSULE PO (05:29)
[2022-09-22] MEDS: Menthol/Lanolin/Calamine/Znox 113 GM Tube 1 APPLIC TOPICAL ×2 (05:31→17:44)
[2022-09-22 06:36] LABS: Bedside Glucose 111 mg/dL (74-106)
[2022-09-22] MEDS: Ascorbic Acid 500 MG Tablet PO (08:21)
[2022-09-22] MEDS: Insulin NPH Human 100 UNITS/ML PEN 6 UNITS SC ×2 (08:21→17:44)
[2022-09-22] MEDS: Collagenase 30gm Tube 1 APPLIC TOPICAL ×2 (09:55→21:56)
[2022-09-22] MEDS: DAKIN'S SOL HALF STRENGTH (=0.25%) 1 APPLIC TOPICAL ×2 (09:55→21:55)
[2022-09-22 11:51] LABS: Bedside Glucose 133 mg/dL (74-106)
[2022-09-22] MEDS: Losartan Potassium 100 MG Tablet PO (12:39)
[2022-09-22 13:51] VITALS: BP 135/70; PULSE 112; RESP 17; TEMP 36.3; O2SAT 95
[2022-09-22 16:32] LABS: Bedside Glucose 144 mg/dL (74-106)
[2022-09-22 21:27] LABS: Bedside Glucose 160 mg/dL (74-106)
[2022-09-22 21:50] VITALS: BP 141/77; PULSE 101; RESP 18; TEMP 37.1; O2SAT 93
[2022-09-23 06:31] LABS: Bedside Glucose 117 mg/dL (74-106)
[2022-09-23] MEDS: Pantoprazole Sodium 40 MG Tablet PO ×2 (06:32→18:13)
[2022-09-23] MEDS: metroNIDAZOLE 500 MG Tablet PO ×3 (06:32→21:53)
[2022-09-23] MEDS: Iron Polysaccharide Complex 150 MG CAPSULE PO (06:32)
[2022-09-23] MEDS: Finasteride 5 MG Tablet PO (06:32)
[2022-09-23] MEDS: Menthol/Lanolin/Calamine/Znox 113 GM Tube 1 APPLIC TOPICAL ×2 (06:32→18:16)
[2022-09-23] MEDS: Polyethylene Glycol 3350 17 GM PACKET PO (06:32)
[2022-09-23] MEDS: levoFLOXacin 500 MG Tablet PO (06:32)
[2022-09-23] MEDS: Ascorbic Acid 500 MG Tablet PO (08:15)
[2022-09-23] MEDS: Insulin NPH Human 100 UNITS/ML PEN 6 UNITS SC ×2 (08:15→18:12)
[2022-09-23 09:27] VITALS: PULSE 96; RESP 16; O2SAT 94
[2022-09-23 11:24] LABS: Bedside Glucose 105 mg/dL (74-106)
[2022-09-23] MEDS: Losartan Potassium 100 MG Tablet PO (13:05)
[2022-09-23] MEDS: DAKIN'S SOL HALF STRENGTH (=0.25%) 1 APPLIC TOPICAL ×2 (13:06→21:54)
[2022-09-23 14:25] VITALS: BP 128/80; PULSE 97; RESP 18; TEMP 36.1; O2SAT 97
[2022-09-23 16:35] LABS: Bedside Glucose 126 mg/dL (74-106)
[2022-09-23 21:29] LABS: Bedside Glucose 136 mg/dL (74-106)
[2022-09-24 06:38] LABS: Bedside Glucose 108 mg/dL (74-106)
[2022-09-24] MEDS: metroNIDAZOLE 500 MG Tablet PO ×3 (06:48→20:52)
[2022-09-24] MEDS: Polyethylene Glycol 3350 17 GM PACKET PO (06:48)
[2022-09-24] MEDS: Finasteride 5 MG Tablet PO (06:48)
[2022-09-24] MEDS: Iron Polysaccharide Complex 150 MG CAPSULE PO (06:48)
[2022-09-24] MEDS: levoFLOXacin 500 MG Tablet PO (06:48)
[2022-09-24] MEDS: Pantoprazole Sodium 40 MG Tablet PO ×2 (06:48→17:48)
[2022-09-24] MEDS: Menthol/Lanolin/Calamine/Znox 113 GM Tube 1 APPLIC TOPICAL ×2 (06:49→17:50)
[2022-09-24] MEDS: Insulin NPH Human 100 UNITS/ML PEN 6 UNITS SC ×2 (07:47→17:47)
[2022-09-24] MEDS: Ascorbic Acid 500 MG Tablet PO (07:47)
[2022-09-24] MEDS: DAKIN'S SOL HALF STRENGTH (=0.25%) 1 APPLIC TOPICAL ×2 (09:27→20:53)
--- NOTE | 2022-09-24 09:44 | WOUNDNOTE ---
Addendum entered by Vicky Hernandez 09/24/22 11:30: Call back received from Dr. Turner's office. Per staff, Dr. Turner would like to see the drain, order to leave in place until follow-up appt. Original Note: Called and left message with the surgeon's office in [place] (Arianna Turner) to see when the RUY drain can be removed from the LLQ. states the drain has been in place since 10/19/22.
--- NOTE | 2022-09-24 11:13 | WOUNDNOTE ---
wound photo: abdomen
[2022-09-24 11:18] LABS: Bedside Glucose 123 mg/dL (74-106)
[2022-09-24] MEDS: Losartan Potassium 100 MG Tablet PO (11:40)
--- NOTE | 2022-09-24 12:05 | WOUNDNOTE ---
Dr Hopkins's office called back and states the drain will be assessed at the follow up appt on Saturday for possible removal.
--- NOTE | 2022-09-24 12:23 | NURSING ---
Offered covid vaccine to patient, education on vaccine provided. Patient refuses at this time.
[2022-09-24 13:38] VITALS: BP 146/80; PULSE 107; RESP 16; TEMP 36.2; O2SAT 96
--- NOTE | 2022-09-24 13:38 | NURSING ---
DRESSING CHANGED BY TAMMY BOLDEN/WOUND NURSE AND TAMMY BOLDEN CHANGED COLOSTOMY WITH PT .
--- NOTE | 2022-09-24 13:56 | WOUNDNOTE ---
Assisted with ostomy appliance change. was able to change the appliance with very minimal instruction. stoma remains well budded and dark pink. the mucocutaneous separation is improving. this nurse cleansed the skin with soap and water. pat dry. placed Aquacel AG followed by comfeel clear to cover the separation and then pt's applied the new ostomy appliance. states she is feeling more confident about changing the appliance at home. has also emptied the appliance as well. both deny questions and are very appreciative of care.
[2022-09-24 16:53] LABS: Bedside Glucose 135 mg/dL (74-106)
[2022-09-24 21:31] LABS: Bedside Glucose 142 mg/dL (74-106)
[2022-09-24 21:35] VITALS: PULSE 96; RESP 16; O2SAT 92
[2022-09-25 01:00] VITALS: BMI 35.6
[2022-09-25] MEDS: Polyethylene Glycol 3350 17 GM PACKET PO (05:18)
[2022-09-25] MEDS: Finasteride 5 MG Tablet PO (05:19)
[2022-09-25] MEDS: Menthol/Lanolin/Calamine/Znox 113 GM Tube 1 APPLIC TOPICAL ×2 (05:19→17:53)
[2022-09-25] MEDS: Iron Polysaccharide Complex 150 MG CAPSULE PO (05:19)
[2022-09-25] MEDS: levoFLOXacin 500 MG Tablet PO (05:19)
[2022-09-25] MEDS: Pantoprazole Sodium 40 MG Tablet PO ×2 (05:19→17:52)
[2022-09-25] MEDS: metroNIDAZOLE 500 MG Tablet PO ×3 (05:20→22:00)
[2022-09-25 06:28] LABS: Bedside Glucose 112 mg/dL (74-106)
[2022-09-25] MEDS: Insulin NPH Human 100 UNITS/ML PEN 6 UNITS SC ×2 (07:56→17:52)
[2022-09-25] MEDS: Ascorbic Acid 500 MG Tablet PO (07:57)
[2022-09-25] MEDS: DAKIN'S SOL HALF STRENGTH (=0.25%) 1 APPLIC TOPICAL ×2 (09:07→22:02)
--- NOTE | 2022-09-25 09:09 | NURSING ---
KIMI,RN/WOUND NURSE CHANGED PT ABDOMINAL AND RUY DRAIN DRESSING TODAY. DID TEACHING WITH PT ON COLOSTOMY.
[2022-09-25 09:30] VITALS: PULSE 105; RESP 18; O2SAT 96
[2022-09-25] MEDS: Losartan Potassium 100 MG Tablet PO (11:51)
[2022-09-25 11:54] VITALS: BP 139/80; PULSE 108
--- NOTE | 2022-09-25 12:05 | MDS.RN ---
Information for the mds was obtained from review of the clinical record, interview of resident, staff, and direct observation of resident's care.
[2022-09-25 12:16] LABS: Bedside Glucose 113 mg/dL (74-106)
[2022-09-25 15:49] VITALS: BP 146/84; PULSE 127; RESP 16; TEMP 36.1; O2SAT 98
--- NOTE | 2022-09-25 16:01 | CASEMGMT ---
Social Work Insurance issued LCD 09/24, DC 09/25. LEELA collaborated with wound nurse, Director and nursing staff on DC plans. Pt still has extensive wound care and a f/u appt scheduled with surgeon on 09/28. The wound nurse had spoken to the surgeon's office previously about treatment plan and the surgeon was clear on not making any decisions until pt is seen by that provider in the office 09/28. LEELA spoke with pt and at bedside to update on DC date. Educated peer to peer appeal option available. Both agree for P2P, if Dr. Menezes agrees. tearful about having pt DC home too soon. has completed pt's ostomy care but is still apprehensive about hands on wound care at home. SW validated concerns and IDT is advocating for pt. LEELA spoke with Dr. Menezes and he is agreeable to P2P. SW contacted scheduling line and earliest available options is 09/26 at 1000. SW insisted on same day appeal since insurance is denying coverage, but scheduled stated they do not have same day appeal options. LEELA continued to collaborate with wound nurse and Director. All in agreement, pt is not appropriate to DC home with short notice and services in place. Will await outcome of P2P. If pt loses, pt to DC home with C. If wins, the goal is for pt to remain until 09/28, with anticipation of wound vac being placed. Wound nurse can then order home vac and have that placed with pt discharging home 10/01. LEELA updated pt and on above and both in agreement with plan. LEELA inquired about HHC preference. Both prefer to use [facility]. Both expressed appreciation for advocation and assistance. LEELA phoned referral to [facility] for SN/OT and wound nurse assisted in explaining needed care at home, if DC'd prior to appt. [facility]. LEELA will continue to follow for DC planning. Jordyn Colon, GOMEZ BONILLAW
[2022-09-25 17:31] LABS: Bedside Glucose 155 mg/dL (74-106)
[2022-09-25 18:00] VITALS: PULSE 104
--- NOTE | 2022-09-25 21:13 | DS.PCM_ITS ---
Providers Date of Admission: 09/12/22 Primary Care Physician: Dr. Oscar Gibbs Jr., MD Consultations 09/12/22 20:37 Consult: Onc/Wound/fire engineer Routine Comment: Reason for Consult:: New colostomy, open abdominal incision, pressure ulcer to sacrum Reason For Visit: PERFORATED DIVERTICULITIS Diagnosis Discharge Diagnosis (1) Perforation of sigmoid colon due to diverticulitis: Status: Acute Code(s): K57.20 - Diverticulitis of large intestine with perforation and abscess without bleeding (2) Asthma: Status: Acute Code(s): J45.909 - Unspecified asthma, uncomplicated (3) Diabetes mellitus: Status: Acute Code(s): E11.9 - Type 2 diabetes mellitus without complications (4) Diverticulosis: Status: Acute Code(s): K57.90 - Diverticulosis of intestine, part unspecified, without perforation or abscess without bleeding (5) Hypertension: Status: Chronic Code(s): I10 - Essential (primary) hypertension (6) Left inguinal hernia: Status: Acute Code(s): K40.90 - Unilateral inguinal hernia, without obstruction or gangrene, not specified as recurrent (7) Acute kidney injury: Status: Acute Code(s): N17.9 - Acute kidney failure, unspecified (8) Acute respiratory failure with hypoxia: Status: Acute Code(s): J96.01 - Acute respiratory failure with hypoxia (9) Pneumonia due to COVID-19 virus: Status: Acute Code(s): U07.1 - COVID-19; J12.82 - Pneumonia due to coronavirus disease 2019 (10) Debility: Status: Acute Code(s): R53.81 - Other malaise Plan 61 year old male with below past medical history hospitalized for perforated diverticulitis requiring partial colectomy, colostomy, complicated by acute respiratory failure with hypoxia, covid19, acute kidney injury, intraabdominal abscess requiring IR aspiration, admitted to TCU with debility, here for rehabilitation, strengthening, prior to discharge home with . * Debility - PT/OT. * Pain - Tylenol 1000mg q6h prn pain (1-3), Tramadol 50mg q6h prn pain (4-5), Oxycodone 5mg q4h prn pain (6-10). * Bowel - Miralax 17gm daily, Magnesium citrate 150ml po x 1 prn. * Adult immunization - Administer pneumonia vaccine, covid19 vaccine, flu vaccine as appropriate. * DVT prophylaxis - Lovenox 40mg sc daily. * Abdominal wound - Santyl topical bid, Dakins topical bid, consult wound nurse. * BPH - Finasteride 5mg daily. * Diabetes Mellitus II - NPH 6 units bidac. * Hypertension - Losartan 100mg daily. * GERD - Pantoprazole 40mg bid. Medications at Discharge Home Medications acetaminophen 500 mg tablet 500 mg PO Q6H PRN pain (scale score 1-3) 09/12/22 collagenase clostridium histo. 250 unit/gram topical ointment (Santyl) 1 applic topical BID Wound 09/12/22 finasteride 5 mg tablet 5 mg PO DAILY BPH 09/12/22 insulin NPH isoph U-100 human 100 unit/mL (3 mL) subcutaneous pen (Humulin N NPH U-100 Insulin KwikPen) 6 unit subcut BID Diabetes 09/12/22 losartan 100 mg tablet (Cozaar) 100 mg PO DAILY Blood pressure 09/12/22 oxycodone 5 mg tablet 5 mg PO Q6H PRN pain 09/12/22 pantoprazole 40 mg tablet,delayed release 40 mg PO BID GERD 09/12/22 polyethylene glycol 3350 17 gram oral powder packet 17 g PO DAILY Constipation 09/12/22 sodium hypochlorite 0.125 % solution (Dakin's Solution) 1 applic topical BID Wound 09/12/22 ascorbic acid (vitamin C) 500 mg tablet 500 mg PO BREAKFAST 30 days #30 tabs 09/25/22 insulin NPH isoph U-100 human 100 unit/mL (3 mL) subcutaneous pen (Humulin N NPH U-100 Insulin KwikPen) 6 unit (0.06 mL) subcut BIDAC 30 days #3.6 mL 09/25/22 levofloxacin 500 mg tablet 500 mg PO DAILY@0600 2 days #2 tabs 09/25/22 metronidazole 500 mg tablet 500 mg PO TID 2 days #6 tabs 09/25/22 pantoprazole 40 mg tablet,delayed release 40 mg PO BID 30 days #60 tabs 09/25/22 polysaccharide iron complex 150 mg iron capsule (Ferrex) 150 mg PO DAILY 30 days #30 caps 09/25/22 sodium hypochlorite 0.25 % solution (HySept) 1 applic topical 1000,2200 30 days #1,000 mL 09/25/22 Hospital Course Operations - (See below.) Procedures None Summary of Care Provided Minutes Spent on Discharge: 35 Hospital Course: 61 year old male with below past medical history hospitalized for perforated diverticulitis requiring partial colectomy, colostomy, complicated by acute respiratory failure with hypoxia, covid19, acute kidney injury, intraabdominal abscess requiring IR aspiration, admitted to TCU with debility, here for r ehabilitation, strengthening, prior to discharge home with . Discharge home with 09/26/2022, [facility] SN/OT, pending peer to peer. Physical Exam Const alert General Appearance: cooperative HEENT normocephalic Eyes PERRL and EOMs intact bilaterally Neck supple, no JVD and no carotid bruits Resp normal respiratory effort, normal air movement and clear to auscultation yanelis aterally Cardio regular rate and regular rhythm GI normal to inspection, nondistended, normoactive bowel sounds, non-tender and non-distended GI Narrative: Large midline abdominal wound, colostomy. Extremity normal capillary refill General Extremity: Negative for edema Skin no rashes or lesions noted General Skin Exam: no breakdown Psych affect normal Appearance: appropriate Medical Records Data Medical Nutrition Assessment Dietitian: Malnutrition Criteria Met Start: 09/13/22 14:29 Freq: Status: Active Protocol: Document 09/13/22 14:29 NH (Rec: 09/13/22 14:30 NH [id number]) Nutrition Malnutrition Evidence of Malnutrition Exists Yes Malnutrition (moderate): Chronic Evidenced By Suboptimal Energy Intake ( Moderate),Weight Loss ( Moderate) Clinical Problem Chronic Disease or Condition Related Malnutrition Etiology Moderate chronic malnutrition related to complicated medical course over the last month stemming from diverticulitis including multiple abdominal surgeries and TPN for nutrition Signs/Symptoms Weight loss of 5% and <75% energy intake over the last month. Status Active Problem Recommendation Dietitian Recommendations/Changes Will order Donnie BID at bfast and dinner to promote wound healing. Harlan flavor per patient preference. Will order Glucerna once daily at lunch to provide additional energy and protein for healing and recovery. Cunningham flavor per patient preference. Will discontinue cardiac diet to open up more menu options for this patient. Especially since he is allergic to poultry, limiting his protein options with a cardiac diet is not ideal. Taking this restriction away will open up protein options for this patient. Continue Consistent Carbohydrate diet due to diabetes. Might also consider discontinuing 1800 kcal restriction to again open up more menu options and opportunities to get proper amounts of energy and protein to this patient. Weight / BMI Weight Weight: 106.866 kg Body Mass Index (BMI) 35.6 ABG / Lab / Microbiology Data 09/21/22 05:06 09/20/22 05:28 Laboratory: Laboratory Results - last 24 hr 09/24/22 21:09: POC Glucose 142 H 09/25/22 06:10: POC Glucose 112 H 09/25/22 11:54: POC Glucose 113 H 09/25/22 16:34: POC Glucose 155 H D/C Instructions Discharge Diet: No restrictions Discharge Activity: Return to Normal Activity, May Shower and Use Walker Weight Bearing Status: Weight bearing as tolerated Call your doctor if you observe: Fever of 101 or Higher, Inability to urinate, Inability to have a bowel movement, Shortness of breath, Dizziness, Fainting spells, Swelling in the ankles, Chest pain and Uncontrolled pain Additional Instructions: Discharge home with 09/26/2022, [facility] SN/OT, pending peer to peer. Please Follow Up With: Dr. Turner When: As scheduled. Meaningful Use Info Meaningful Use Diagnoses (Choose all that apply): None applicable Discharge Plan Admission Admit Date/Time: 09/12/22 19:50 Primary Reason for Your Visit: Debility. Attending Provider: Dennis Menezes Chi Primary Care Provider: Oscar Gibbs Jr. Instructions Additional Instructions / Restrictions: Discharge home with 09/26/2022, [facility] SN/OT, pending peer to peer. Discharge Orders/Prescriptions Prescriptions: New ascorbic acid (vitamin C) 500 mg Tablet 500 mg PO BREAKFAST 30 Days Qty: 30 0RF pantoprazole 40 mg Tablet,Delayed Release (Dr/Ec) 40 mg PO BID 30 Days Qty: 60 0RF HySept 0.25 % Solution 1 applic topical 1000,2200 30 Days Qty: 1000 0RF Humulin N NPH Insulin KwikPen 100 unit/mL (3 mL) Insulin Pen 6 unit subcut BIDAC 30 Days Qty: 3.6 0RF polysaccharide iron complex [Ferrex 150] 150 mg iron Capsule 150 mg PO DAILY 30 Days Qty: 30 0RF metronidazole 500 mg Tablet 500 mg PO TID 2 Days Qty: 6 0RF levofloxacin 500 mg Tablet 500 mg PO DAILY@0600 2 Days Qty: 2 0RF Continued finasteride 5 mg tablet 5 mg PO DAILY losartan [Cozaar] 100 mg tablet 100 mg PO DAILY Rx Instructions: Administer with Lunch No Action acetaminophen 500 mg tablet 500 mg PO Q6H PRN (Reason: pain (scale score 1-3)) Santyl 250 unit/gram ointment 1 applic topical BID Rx Instructions: Apply topically 2 x/day x 10 days. Humulin N NPH Insulin KwikPen 100 unit/mL (3 mL) insulin pen 6 unit subcut BID Rx Instructions: Administer under skin 2x/day before meals oxycodone 5 mg tablet 5 mg PO Q6H PRN (Reason: pain) pantoprazole 40 mg tablet,delayed release (DR/EC) 40 mg PO BID polyethylene glycol 3350 17 gram powder in packet 17 g PO DAILY Rx Instructions: Take x 7 days starting 09/13/22 Dakin's Solution 0.125 % solution 1 applic topical BID Rx Instructions: dilute 0.25% solution 1:1 with water; final concentration = 0.125% Referrals / Follow Up: Oscar Gibbs Jr., MD [Primary Care Provider] - Disposition Disposition (needs filled in before D/C Order can be placed): Home Health Service
[2022-09-25 21:35] LABS: Bedside Glucose 161 mg/dL (74-106)
[2022-09-26] MEDS: levoFLOXacin 500 MG Tablet PO (05:37)
[2022-09-26] MEDS: metroNIDAZOLE 500 MG Tablet PO ×3 (05:37→21:56)
[2022-09-26] MEDS: Iron Polysaccharide Complex 150 MG CAPSULE PO (05:37)
[2022-09-26] MEDS: Polyethylene Glycol 3350 17 GM PACKET PO (05:37)
[2022-09-26] MEDS: Finasteride 5 MG Tablet PO (05:38)
[2022-09-26] MEDS: Pantoprazole Sodium 40 MG Tablet PO ×2 (05:38→17:26)
[2022-09-26] MEDS: Menthol/Lanolin/Calamine/Znox 113 GM Tube 1 APPLIC TOPICAL ×2 (05:44→17:27)
[2022-09-26 06:47] LABS: Bedside Glucose 115 mg/dL (74-106)
[2022-09-26] MEDS: Ascorbic Acid 500 MG Tablet PO (07:47)
[2022-09-26] MEDS: Insulin NPH Human 100 UNITS/ML PEN 6 UNITS SC ×2 (07:47→17:24)
[2022-09-26] MEDS: DAKIN'S SOL HALF STRENGTH (=0.25%) 1 APPLIC TOPICAL ×2 (09:55→21:56)
--- NOTE | 2022-09-26 10:43 | NURSING ---
Per LEELA Called wound center for appt after D/C on 10/01. First available appt made for 10/04 @ 0800
--- NOTE | 2022-09-26 10:51 | WOUNDNOTE ---
Worked with on changing dressing to abdomen. was able to perform the dressing change, but was a little nervous. pt tolerated dressing change well. the plan is to hopefully get approval for wound VAC to be placed after the patient follows up with the surgeon on September 28. Home VAC was approved so just waiting on the surgeon to approve placement. SW working on finding a home health agency for VAC changes.
[2022-09-26 11:26] LABS: Bedside Glucose 137 mg/dL (74-106)
--- NOTE | 2022-09-26 11:42 | CASEMGMT ---
Social Work Peer to Peer completed with Dr. Menezes. After much discussion and advocation, MMO approved NRD 09/28 with outcome of appt, LCD 09/30, DC 10/01. SW updated pt and whom were both very appreciative. IDT updated. SW phoned Delores at [facility] with updates. Pt is scheduled for f/u at [facility]. Pt needs FWW. SW sent referral to [facility] [place] [facility]. to transport home. SW will follow for ongoing needs. PLAN: DC home with 10/01, [facility] OT/SN, FWW Jordyn Colon, REFERRAL MANAGEMENT LIAISON EDGING MACHINE SETTER
[2022-09-26] MEDS: Losartan Potassium 100 MG Tablet PO (12:49)
--- NOTE | 2022-09-26 13:25 | CHAPLAIN ---
Type of Pastoral Visit ___ Initial Visit _x__ Follow-up Visit ___ On-call Visit ___ General Patient Visit ___ Spiritual Assessment ___ Family Conference ___ Bereavement ___ Rapid Response ___ Code Blue ___ Other (describe below) Pastoral Care Referral From _x__ Patient ___ Family ___ Nurse ___ Physician ___ General Intern ___ Plastic Printer ___ Other (describe below) Sacrament/Intervention _x__ Active listening ___ Anointing ___ Confucianist ___ Bereavement ___ Communion _x__ [place] exploration ___ ___ Life review _x__ Prayer ___ Reconciliation ___ Sacrament of Sick _x__ Supportive presence ___ Wedding ___ Other (describe below) Pastoral Comments patient and spouse both expressive in 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
[2022-09-26 14:43] VITALS: BP 152/86; PULSE 118; RESP 16; TEMP 36.2; O2SAT 97
[2022-09-26 16:57] LABS: Bedside Glucose 125 mg/dL (74-106)
[2022-09-26 21:52] LABS: Bedside Glucose 143 mg/dL (74-106)
[2022-09-27] MEDS: Polyethylene Glycol 3350 17 GM PACKET PO (05:34)
[2022-09-27] MEDS: levoFLOXacin 500 MG Tablet PO (05:35)
[2022-09-27] MEDS: Pantoprazole Sodium 40 MG Tablet PO ×2 (05:35→17:08)
[2022-09-27] MEDS: Finasteride 5 MG Tablet PO (05:35)
[2022-09-27] MEDS: metroNIDAZOLE 500 MG Tablet PO ×2 (05:35→13:49)
[2022-09-27] MEDS: Iron Polysaccharide Complex 150 MG CAPSULE PO (05:35)
[2022-09-27 05:36] LABS: Absolute Lymphocyte Count 1.95 X10^3/uL (0.83-4.51); Absolute Neutrophil Count 3.6 X10^3/uL (2.0-7.7); Basophil# 0.03 X10^3/uL; Basophil% 0.5 % (0-1); Eosinophil# 0.08 X10^3/uL; Eosinophils% 1.3 % (0-5); Hematocrit 31.3 % (40-54); Hemoglobin 9.3 g/dL (13.0-16.5); Lymphocyte # 1.95 X10^3/ul (0.83-4.51); Lymphocyte % 30.8 % (19-41); Mean Corp Hgb Conc 29.7 g/dL (32-36); Mean Corpuscular Hgb 25.4 pg (27.0-32.0); Mean Corpuscular Volume 85.5 fL (80-94); Monocyte# 0.66 X10^3/uL; Monocyte% 10.4 % (0-10); NRBC Flagged by Analyzer 0 % (0-5); Neutrophil # 3.56 X10^3/uL (2.7-7.7); Neutrophil % 56.1 % (47-70); Platelet Count 299 K/mm3 (150-450); RBC Distribution Width CV 17.1 % (11.6-14.6); RBC Distribution Width SD 52.1 fl (35.1-43.9); Red Blood Count 3.66 M/mm3 (4.6-6.2); White Blood Count 6.3 K/mm3 (4.4-11.0)
[2022-09-27] MEDS: Menthol/Lanolin/Calamine/Znox 113 GM Tube 1 APPLIC TOPICAL ×2 (05:38→17:17)
[2022-09-27 05:55] LABS: Anion Gap 4 (5-15); BUN 9 mg/dL (7-18); BUN/Creat Ratio 17.4 RATIO (10-20); Calcium,Total 8.3 mg/dL (8.5-10.1); Chloride 106 mmol/L (98-107); Creatinine, Serum 0.52 mg/dL (0.70-1.30); EST Glomerular Filtration Rate 173 mL/min (>60); Est Glom Filt Rate - Afr Amer 209 mL/min (>60); Estimated Creatinine Clearance 146.15 ml/min; Glucose 112 mg/dL (74-106); Sodium Level 139 mmol/L (136-145)
[2022-09-27 06:40] LABS: Bedside Glucose 109 mg/dL (74-106)
[2022-09-27] MEDS: Insulin NPH Human 100 UNITS/ML PEN 6 UNITS SC ×2 (08:09→17:08)
[2022-09-27] MEDS: Ascorbic Acid 500 MG Tablet PO (08:10)
[2022-09-27 11:44] LABS: Bedside Glucose 126 mg/dL (74-106)
[2022-09-27] MEDS: DAKIN'S SOL HALF STRENGTH (=0.25%) 1 APPLIC TOPICAL ×2 (12:05→21:43)
[2022-09-27] MEDS: Losartan Potassium 100 MG Tablet PO (12:07)
[2022-09-27 14:20] VITALS: BP 147/70; PULSE 97; RESP 14; TEMP 36.2; O2SAT 97
[2022-09-27 16:54] LABS: Bedside Glucose 132 mg/dL (74-106)
[2022-09-27 21:33] LABS: Bedside Glucose 170 mg/dL (74-106)
--- NOTE | 2022-09-28 01:46 | CASEMGMT ---
Addendum entered by Jordyn Colon 10/01/22 08:48: [facility] confirmed rollator to be delivered to pt's room this date prior to DC. Original Note: Social Work Therapy and pt decided on rollator at home vs FWW. SW confirmed with pt and that they can cover the $60 OOP cost that insurance does not cover. SW updated order and sent via [facility] to [facility]. Voicemail left with Waldemar at [facility] to follow up as well. Jordyn Colon, GOMEZ BONILLAW
[2022-09-28] MEDS: Polyethylene Glycol 3350 17 GM PACKET PO (05:59)
[2022-09-28] MEDS: Finasteride 5 MG Tablet PO (06:00)
[2022-09-28] MEDS: Menthol/Lanolin/Calamine/Znox 113 GM Tube 1 APPLIC TOPICAL ×2 (06:00→16:46)
[2022-09-28] MEDS: Iron Polysaccharide Complex 150 MG CAPSULE PO (06:00)
[2022-09-28] MEDS: Pantoprazole Sodium 40 MG Tablet PO ×2 (06:00→16:46)
[2022-09-28 06:41] LABS: Bedside Glucose 105 mg/dL (74-106)
[2022-09-28] MEDS: Ascorbic Acid 500 MG Tablet PO (08:02)
[2022-09-28] MEDS: Insulin NPH Human 100 UNITS/ML PEN 6 UNITS SC ×2 (08:02→16:52)
--- NOTE | 2022-09-28 10:32 | CASEMGMT ---
Social Work BIMS () and PHQ-9 (04/23) completed for MDS assessment. Jordyn Colon MSW COLLAR SETTER OVERLOCK
[2022-09-28 11:08] LABS: Bedside Glucose 149 mg/dL (74-106)
[2022-09-28] MEDS: DAKIN'S SOL HALF STRENGTH (=0.25%) 1 APPLIC TOPICAL ×2 (12:34→22:15)
--- NOTE | 2022-09-28 12:50 | NURSING ---
1225; pt left tcu for surgeon appt. in [place]. to transport.
[2022-09-28 14:02] VITALS: BP 131/70; PULSE 109; RESP 16; TEMP 36.4; O2SAT 95
[2022-09-28] MEDS: Losartan Potassium 100 MG Tablet PO (16:45)
[2022-09-28 16:53] LABS: Bedside Glucose 124 mg/dL (74-106)
[2022-09-28 21:16] LABS: Bedside Glucose 157 mg/dL (74-106)
[2022-09-28 22:00] VITALS: BP 152/79; PULSE 97; RESP 17; TEMP 36.4; O2SAT 96
[2022-09-29] MEDS: Iron Polysaccharide Complex 150 MG CAPSULE PO (06:22)
[2022-09-29] MEDS: Polyethylene Glycol 3350 17 GM PACKET PO (06:22)
[2022-09-29] MEDS: Pantoprazole Sodium 40 MG Tablet PO ×2 (06:22→17:46)
[2022-09-29] MEDS: Finasteride 5 MG Tablet PO (06:22)
[2022-09-29] MEDS: Menthol/Lanolin/Calamine/Znox 113 GM Tube 1 APPLIC TOPICAL ×2 (06:33→17:45)
[2022-09-29 06:43] LABS: Bedside Glucose 103 mg/dL (74-106)
[2022-09-29] MEDS: Insulin NPH Human 100 UNITS/ML PEN 6 UNITS SC ×2 (07:51→17:46)
[2022-09-29] MEDS: Ascorbic Acid 500 MG Tablet PO (07:51)
[2022-09-29] MEDS: DAKIN'S SOL HALF STRENGTH (=0.25%) 1 APPLIC TOPICAL ×2 (10:28→22:24)
[2022-09-29 10:30] VITALS: PULSE 103; RESP 18; O2SAT 94
[2022-09-29] MEDS: Losartan Potassium 100 MG Tablet PO (11:06)
[2022-09-29 11:07] VITALS: BP 135/69; PULSE 98
[2022-09-29 11:27] LABS: Bedside Glucose 145 mg/dL (74-106)
--- NOTE | 2022-09-29 11:30 | NURSING ---
PT IN ROOM FROM CREDIT RELATIONSHIP MANAGER TILL EVENING. ALWAYS UPDATED WHILE HERE.
[2022-09-29 14:03] VITALS: BP 129/88; PULSE 108; RESP 16; TEMP 36.6; O2SAT 94
[2022-09-29 17:24] LABS: Bedside Glucose 127 mg/dL (74-106)
[2022-09-29 21:56] LABS: Bedside Glucose 140 mg/dL (74-106)
[2022-09-30] MEDS: Pantoprazole Sodium 40 MG Tablet PO ×2 (06:15→17:52)
[2022-09-30] MEDS: Polyethylene Glycol 3350 17 GM PACKET PO (06:15)
[2022-09-30] MEDS: Finasteride 5 MG Tablet PO (06:16)
[2022-09-30] MEDS: Iron Polysaccharide Complex 150 MG CAPSULE PO (06:16)
[2022-09-30] MEDS: Menthol/Lanolin/Calamine/Znox 113 GM Tube 1 APPLIC TOPICAL ×2 (06:19→17:55)
--- NOTE | 2022-09-30 06:25 | NURSING ---
Wound care completed per order at hs. Two large pieces of kerlix removed from wound w/ lg amount of serosanguinous and small amount of green drainage. B/L drain sites scabbed, without active drainage, and left rotary drier feeder. One roll of Dakin moistened kerlix applied to wound bed, covered w/ three ABDs, and secured w/ medipore tape. Pt tolerated well. Greater than 75% of wound bed w/ granulation tissue. Slough noted to left lateral edge and proximal aspect of wound. Wound edges pink. No foul odor to wound. Will continue to monitor.
[2022-09-30 06:34] LABS: Bedside Glucose 109 mg/dL (74-106)
[2022-09-30] MEDS: Insulin NPH Human 100 UNITS/ML PEN 6 UNITS SC ×2 (07:59→17:52)
[2022-09-30] MEDS: Ascorbic Acid 500 MG Tablet PO (08:00)
[2022-09-30] MEDS: DAKIN'S SOL HALF STRENGTH (=0.25%) 1 APPLIC TOPICAL ×2 (10:58→22:37)
[2022-09-30] MEDS: Losartan Potassium 100 MG Tablet PO (11:02)
[2022-09-30 11:07] VITALS: BP 153/83; PULSE 91
[2022-09-30 12:21] LABS: Bedside Glucose 116 mg/dL (74-106)
[2022-09-30 16:00] VITALS: BP 155/85; PULSE 103; RESP 16; TEMP 36.8; O2SAT 92
--- NOTE | 2022-09-30 16:34 | NURSING ---
DRESSING CHANGED TO PT ABDOMINAL PER ORDERS, NO S/S OF INFECTION. AND COLOSTOMY BAG CHANGED PER PT REQUEST. PT TOLERATED WELL.
[2022-09-30 16:59] LABS: Bedside Glucose 143 mg/dL (74-106)
[2022-09-30 22:04] LABS: Bedside Glucose 129 mg/dL (74-106)
[2022-10-01 06:25] LABS: Bedside Glucose 105 mg/dL (74-106)
[2022-10-01] MEDS: Finasteride 5 MG Tablet PO (07:14)
[2022-10-01] MEDS: Pantoprazole Sodium 40 MG Tablet PO (07:14)
[2022-10-01] MEDS: Polyethylene Glycol 3350 17 GM PACKET PO (07:14)
[2022-10-01] MEDS: Iron Polysaccharide Complex 150 MG CAPSULE PO (07:15)
[2022-10-01] MEDS: Menthol/Lanolin/Calamine/Znox 113 GM Tube 1 APPLIC TOPICAL (07:18)
[2022-10-01] MEDS: Ascorbic Acid 500 MG Tablet PO (09:22)
[2022-10-01] MEDS: Insulin NPH Human 100 UNITS/ML PEN 6 UNITS SC (09:22)
[2022-10-01 10:00] VITALS: PULSE 100; RESP 16; O2SAT 95
[2022-10-01 11:27] LABS: Bedside Glucose 132 mg/dL (74-106)
--- NOTE | 2022-10-01 11:54 | WOUNDNOTE ---
wound photo: abdomen
--- NOTE | 2022-10-01 11:55 | WOUNDNOTE ---
stoma photo: left abdomen
--- NOTE | 2022-10-01 11:56 | WOUNDNOTE ---
removed the ostomy appliance and cleaned the peristomal skin with warm water. pat dry. this nurse placed Aquacel AG and comfeel clear over the small wound to the lateral stomal edge. was able to cut the flange to size, place the paste ring and flange and was able to snap the pouch in place. has been doing very well with the appliance changes and has been emptying the appliance as well. home health will assist as well at home, but has been doing a great job with minimal assistance.
[2022-10-01] MEDS: Losartan Potassium 100 MG Tablet PO (13:23)
== END 2022-10-01 13:30 | disposition home health service (06) | DRG 949 ==
PROVIDERS: Admitting Provider Family Medicine Geriatric Medicine; PCP Internal Medicine; Visit Provider Family Medicine Geriatric Medicine
DX: Z48.815 Encounter for surgical aftercare following surgery on the digestive system (principal); U07.1 COVID-19; J12.82 Pneumonia due to coronavirus disease 2019; K57.20 Diverticulitis of large intestine with perforation and abscess without bleeding; Z79.4 Long term (current) use of insulin; E11.9 Type 2 diabetes mellitus without complications; Z93.3 Colostomy status; I10 Essential (primary) hypertension; J45.909 Unspecified asthma, uncomplicated; K40.90 Unilateral inguinal hernia, without obstruction or gangrene, not specified as recurrent; K21.9 Gastro-esophageal reflux disease without esophagitis; Z79.899 Other long term (current) drug therapy; N40.0 Benign prostatic hyperplasia without lower urinary tract symptoms
CPT/HCPCS: 36415; 74230; 80048; 82962; 85014; 85018; 85025; 92526; 92610; 92611; 97110; 97116; 97162; 97166; 97530; 97535; 97802

== ENCOUNTER 2022-10-18 08:15 | Outpatient (RCR) | payer OTHER, SELFPAY ==
[2022-10-04 08:13] VITALS: BP 135/97; PULSE 114; RESP 16; TEMP 36.1; BMI 35.4
--- NOTE | 2022-10-04 09:39 | PCM.WC.HP ---
History of Present Illness Date of Service: 10/04/22 Chief Complaint: Non healing surgical wound History of Wound: Mr. Duque is a 61 yo who presents here due to non healing surgical wound. History of perforated diverticulitis necessitating partial colectomy and a diverting colostomy. Hospital stay also complicated by intra-abdominal abscess. Following his hospital stay in July, he was admitted at the [facility]CU for rehabilitation at which time he had local wound care with [facility]. Was seen by his general surgeon about a week ago following which he was started on a wound VAC on Saturday. So far tolerating wound VAC well. [facility] Medical History (Updated 10/04/22 @ 09:[address] Estrella Puga MD) Acute kidney injury Acute respiratory failure with hypoxia Asthma Colostomy in place Debility Diabetes mellitus Diverticulosis Hypertension Left inguinal hernia Non-healing surgical wound Perforation of sigmoid colon due to diverticulitis Pneumonia due to COVID-19 virus Type 2 diabetes mellitus Home Medications acetaminophen 500 mg tablet 500 mg PO Q6H PRN pain (scale score 1-3) 09/12/22 [History Last Taken Unknown] insulin NPH isoph U-100 human 100 unit/mL (3 mL) subcutaneous pen (Humulin N NPH U-100 Insulin KwikPen) 6 unit subcut BID Diabetes 09/12/22 [History Last Taken 09/12/22 08:35] losartan 100 mg tablet (Cozaar) 100 mg PO DAILY Blood pressure 09/12/22 [History Last Taken 09/12/22 12:30] pantoprazole 40 mg tablet,delayed release 40 mg PO BID GERD 09/12/22 [History Last Taken Unknown] polyethylene glycol 3350 17 gram oral powder packet 17 g PO DAILY Constipation 09/12/22 [History Last Taken 09/12/22 08:35] ascorbic acid (vitamin C) 500 mg tablet 500 mg PO BREAKFAST 30 days #30 tabs 09/25/22 [Rx Last Taken Unknown] polysaccharide iron complex 150 mg iron capsule (Ferrex) 150 mg PO DAILY 30 days #30 caps 09/25/22 [Rx Last Taken Unknown] Allergy/AdvReac Type Severity Reaction Status Date / Time aspirin Allergy Intermediate Hives Verified 10/04/22 08:20 Poultry Allergy Unknown Other Verified 10/04/22 08:20 iodine Allergy Shortness Verified 10/04/22 08:20 of breath Family History (Updated 09/12/22 @ 21:[address] Dennis Menezes MD) Mother Breast cancer Father Myocardial infarction Hypertension Colon cancer Grandmother Diabetes Grandfather Diabetes Surgical History (Updated 10/04/22 @ 09:[address] sEtrella Puga MD) History of excision of dermoid cyst History of left inguinal hernia repair History of tooth extraction S/P colectomy Social History (Updated 09/12/22 @ 21:[address] Dennis Menezes MD) household members: spouse Smoking Status: Never smoker alcohol intake: never substance use type: does not use ROS Constitutional Constitutional: Denies chills, fever(s), lethargy, malaise or weight gain Eyes Eyes: Denies bloody eye, blurry vision, burning, change in eye color, change in vision or loss of vision ENT HEENT: Denies dental pain, disequillibrium, dizziness, headache(s), nasal congestion or nasal discharge Cardiovascular Cardiovascular: Denies chest pain, cold extremities, diaphoresis, dizziness or palpitations Respiratory/Chest Respiratory/Chest: Denies change in phlegm color, chest congestion, chest tightness, cough, excessive phlegm production or shortness of breath with exertion Gastrointestinal Gastrointestinal: Denies abdominal pain, chewing difficulty, cramping, dry heaves, nausea or vomiting Genitourinary Genitourinary: Denies abdominal discomfort, dysuria or flank pain Musculoskeletal Musculoskeletal: Denies abnormal gait, extremity pain, joint pain, joint swelling, muscle cramps or muscle weakness Integumentary Integumentary: Denies dry skin, furuncle, hirsutism, jaundice, rash, skin swelling or wounds Neurologic Neurologic: Denies abnormal movements, behavior changes, burning sensations, focal weakness, headache(s), numbness or tingling Psychiatric Psychiatric: Denies anxiety, auditory hallucinations, depression, homicidal ideation or suicidal ideation Endocrine Endocrinology: Denies cold intolerance, deepening of the voice, excessive sweating, heat intolerance or increase in ring/shoe/hat size Allergic/Immunologic Allergic/Immunologic: Denies itchy eyes, lip swelling, throat swelling, tongue swelling, hives, urticaria or wheezing Vital Signs Vital Signs Vital Signs: 10/04/22 08:13 Temperature 97 F L Temperature Source Temporal Pulse Rate 114 H Respiratory Rate 16 Blood Pressure 135/97 H Blood Pressure Mean 109 Blood Pressure Source Monitor Blood Pressure Position Sitting Blood Pressure Location Left Arm Oxygen Delivery Method Room Air Weight Weight: 233 lb Body Mass Index (BMI) 35.4 Physical Exam Const alert, oriented x3 and no apparent distress General Appearance: cooperative, comfortable and well kempt HEENT normocephalic, head/scalp atraumatic and hearing grossly normal bilaterally Eyes PERRL and EOMs intact bilaterally General Eye: normal appearance of both eyes Neck full ROM and supple General: normal visual inspection Resp normal respiratory effort, normal air movement and clear to auscultation bilaterally Cardio regular rate, regular rhythm, S1 normal heart sound and S2 normal heart sound GI non-tender and non-distended GI Narrative: Large midline abdominal wound, colostomy. Skin Wounds: wounds noted Neuro oriented x3, CN's II-XII intact bilaterally, moves all extremities and no focal motor deficits Psych mental status grossly normal, thought process normal and cooperative Debridement Note Debridement Note Post-Debridement Measurements and Additional Note: Post-Debridement Measurements/Treatment - Nurse 1 - General Ulcer Assessment Start: 10/04/22 08:12 Freq: Status: Active Protocol: JUSTIN Activity Type Activity Date Activity User E-sign Co-sign Detail Recorded Client Recorded Date Recorded By Document 10/04/22 08:13 [facility] [id number] 10/04/22 08:20 [facility] 10/04/22 08:13 - Today's Visit Information Type of service Initial Visit Arrival Mode Ambulatory, Walker Transfer Assistance None Accompanied by Patient Identification Verified (Name & Yes ) Patient Requires Transmission-Based No Precautions Finger Stick Blood Sugar(mg/dl) (if 99 indicated): Blood Sugar Stated by Patient Height and Weight Height 5 ft 8 in Weight 233 lb Weight in Pounds 233.0 lbs Weight Measurement Method Stated by Patient Body Mass Index (BMI) 35.4 BMI Classification Obese BSA - Taya 2.18 Vital Signs Temperature (97.8 F-99.1 F) 97 F L Temperature Source Temporal Pulse Rate (60-100) 114 H Pulse Location Monitor Respiratory Rate (12-18) 16 Respiratory rate source Observation Oxygen Delivery Method Room Air Blood Pressure (90/60-120/80) 135/97 H Blood Pressure Mean 109 Source Monitor Position Sitting Blood Pressure Location Left Arm History Since Last Visit- (Skip if this is Patient's initial visit) Left Footwear Regular Shoe Right Footwear Regular Shoe Pain Scale: 0-10 Numeric Is Patient Pain Free? Yes Communication Assessment Preferred language Faroese [employer] Worker Required No Able to Read Yes Able to Write Yes Communication Tools None Right Hearing Abillity Normal Left Hearing Abillity Normal Visual Assistive Devices Glasses Teaching Assessment Preferences Verbal,Written, Audio/Visual, Demonstration Barriers to Learning None Readiness To Learn Excellent Willingness to Engage in Self Management High Activies Readiness to Engage in Self Management High Activities Anxiety Level Calm Cooperation Cooperative Perception Coherent Interest in Health Problem Asks Questions Education Importance Acknowledges Need Does Patient Smoke tobacco or other No substances Smoking Status Never smoker Is Patient Diabetic Yes Functional Assessment Recent Decline in Ability to Perform Denies Any Declines Culture/Scientologist/Patient Relations Coordinator Cultural/Scientologist Needs that may affect No Treatment Plan Teaching: Wound Center *Welcome to the Wound Center -Person Taught Patient, Significant Other -Response to teaching Verbalize understanding Welcome to the Wound Care Center Faroese WC - Nurse 1 - General Ulcer Measurement Start: 10/04/22 08:12 Freq: Status: Active Protocol: Activity Type Activity Date Activity User E-sign Co-sign Detail Recorded Client Recorded Date Recorded By Document 10/04/22 08:13 [facility] [id number] 10/04/22 08:20 [facility] 10/04/22 08:13 Wound Center Nurse 1 #1- ABDOMINAL POST OP -Combined with other wound No -Current Size (cm) - Length 22.2 -Current Size (cm) - Width 8.3 -Current Size (cm) - Depth 3.5 -Total Square Cm 184.26 -Date of Last Picture (Recall this 10/04/22 field) -Photo Taken Yes -Tunneling No -Undermining/Tunneling Yes -Undermining/Tunneling Starts (O'clock 5 ) -Undermining/Tunneling Ends (O'clock) 7 -Maximum Distance (cm) 3.5 -Exudate Amt Large -Exudate Type Serosanguineous -Wound Margin Distinct, Outline Attached -Granulation Amt Large (67-100%) -Granulation Quality Red -Slough/Fibrin Yes -Necrosis Amt Small (1-33%) -Necrotic Tissue Type Adherent Slough -Texture (Matilde-wound Skin Appearance) Assessed, Scarring -Moisture (Matilde-wound Skin Appearance) Assessed -Color (Matilde-wound Skin Appearance) Assessed -Temperature (Matilde-wound Skin No Abnormality Appearance) (Pt Warm) -Tenderness on Palpation (Matilde-wound No Skin Appearance) -Ulcer Cleansing Soap and Water -Foul Odor after Cleansing No -Anesthetic Used 4% Lidocaine Solution - Nurse 2 - General Ulcer CM Notes Start: 10/04/22 08:12 Freq: Status: Active Protocol: Activity Type Activity Date Activity User E-sign Co-sign Detail Recorded Client Recorded Date Recorded By Document 10/04/22 08:45 MW [id number] 10/04/22 08:58 MW 10/04/22 08:45 Wound Center Nurse 2 -Time 08:45 -Correct Patient Yes -Correct Side, Site, Position Yes -Correct Procedure Yes -Procedure Performed Yes -Type of Procedure Debridement -Clinical Debridement Subcutaneous -Tissue Removed Subcutaneous -Post Debridement (cm) - Length 23.5 -Post Debridement (cm) - Width 8.0 -Post Debridement (cm) - Depth 5.3 -Total Square (Post) (cm) 188.00 -Area of Debridement (cm) - Length 23.5 -Area of Debridement (cm) - Width 8.0 -Total Square (Area) (cm) 188.00 -Tunneling No -Undermining/Tunneling Yes -Undermining/Tunneling Starts (O'clock 5 ) -Undermining/Tunneling Ends (O'clock) 8 -Maximum Distance (cm) 4.5 -Circular Undermining No -Wound/Ulcer Outcome Not Healed -Ulcer Cleansing Rinsed/ Irrigated with Saline -Foul Odor after Cleansing No -Bioengineered Tissue No -Bleeding Controlled with Pressure -Treatment Response Procedure Tolerated Well -Offloading No -Debridement - Subq, 1st 20sq cm Yes Pain Scale: 0-10 Numeric Is Patient Pain Free? Yes - Nurse 3 - General Ulcer D/C NN Start: 10/04/22 08:12 Freq: Status: Active Protocol: Activity Type Activity Date Activity User E-sign Co-sign Detail Recorded Client Recorded Date Recorded By Document 10/04/22 09:34 M[facility] [id number] 10/04/22 09:35 MISHA 10/04/22 09:34 Wound Care Center Nurse 3 #1- ABDOMINAL POST OP -Ulcer Cleansing Soap and Water -Negative Pressure Wound Therapy Continue -Setting (mmHg) 150 -Negative Pressure is Continuous -NPWT Application Charge NPWT & Debridement (nc ) Pain Scale: 0-10 Numeric Is Patient Pain Free? Yes WC - Visit Discharge Discharge Condition Stable Ambulatory Status Ambulatory, Walker Transportation Private Auto Accompanied by Medication Reconcilliation completed & Yes provided to patient/care provider Charges/Coding Visit Charges Office Visits / Consults: [id number] OV L3 New Procedures Integumentary 111xxx-113xx: [id number] Hannah subq tissue 20 sq cm/< Add On Codes: [id number] Hannah subq tissue add-on (x9. Additional square centimeter debrided, please refer to clinical note.) Assessment/Plan Assessment/Plan (1) Non-healing surgical wound: CODE(S): T81.89XA - Other complications of procedures, not elsewhere classified, initial encounter (2) S/P colectomy: CODE(S): Z90.49 - Acquired absence of other specified parts of digestive tract (3) Colostomy in place: CODE(S): Z93.3 - Colostomy status (4) Type 2 diabetes mellitus: CODE(S): E11.9 - Type 2 diabetes mellitus without complications (5) Perforation of sigmoid colon due to diverticulitis: CODE(S): K57.20 - Diverticulitis of large intestine with perforation and abscess without bleeding PLAN: Plan Debridement done as documented above, procedure was well-tolerated. Currently has a wound VAC at 125 mmHg. Tolerating it well and denies any significant pain. Increased to 150 mmHg and change every other day by home health. He believes his last A1c was at 5.5 however this was in February, plans to follow-up with his primary care physician, he was encouraged to have a repeat A1c. Has been taking Donnie and Glucerna, he was advised to continue. Vitamin C, D and zinc also discussed, currently on vitamin C supplements. Present with his , their questions were answered and they were advised to call if they have any further questions or concerns. Patient and voiced understanding. Follow-up in 2 weeks or sooner if needed. This note was generated with [employer] dictation software. It may contain incorrect words, spelling, and punctuation that were not noted in checking the note before signing.
[2022-10-18 08:24] VITALS: BP 178/99; RESP 16; TEMP 36.2; BMI 35.4
--- NOTE | 2022-10-18 09:27 | PCM.WC.PN ---
History of Present Illness Date of Service: 10/18/22 Chief Complaint: Non healing surgical wound History of Wound: Mr. Duque is a 61 yo who presents here due to non healing surgical wound. History of perforated diverticulitis necessitating partial colectomy and a diverting colostomy. Hospital stay also complicated by intra-abdominal abscess. Following his hospital stay in July, he was admitted at the TCU for rehabilitation at which time he had local wound care with [facility]. Was seen by his general surgeon about a week ago following which he was started on a wound VAC on Saturday. So far tolerating wound VAC well. Progress of Wound: Improving. No new concerns at this time. Objective Data Objective Data Vital Signs: Vital Signs Temp Pulse Resp BP O2 Del Method 97.1 F L 114 H 16 178/99 H Room Air 10/18/22 08:24 10/04/22 08:13 10/18/22 08:24 10/18/22 08:24 10/18/22 08:24 Oxygen Delivery Method Room Air Weight: 233 lb Body Mass Index (BMI) 35.4 Charges/Coding Procedures Integumentary 111xxx-113xx: 80208 Hannah subq tissue 20 sq cm/< Add On Codes: 11036 Hannah subq tissue add-on (x5. Additional square centimeter debrided, please refer to clinical note.) Physical Exam Const alert, oriented x3 and no apparent distress General Appearance: cooperative, comfortable and well kempt HEENT normocephalic, head/scalp atraumatic and hearing grossly normal bilaterally Eyes PERRL and EOMs intact bilaterally General Eye: normal appearance of both eyes Neck full ROM and supple General: normal visual inspection Resp normal respiratory effort and normal air movement GI non-tender and non-distended GI Narrative: Large midline abdominal wound, colostomy. Skin Wounds: wounds noted Neuro oriented x3, CN's II-XII intact bilaterally, moves all extremities and no focal motor deficits Psych mental status grossly normal, thought process normal and cooperative Debridement Note Debridement Note Wound debrided: Abdominal Type of Debridement: Excisional debridement Anesthesia Used: 4% Lidocaine Solution Depth: Down to and including healthy tissue and in the subcutaneous layer Percentage of wound debrided: 100 Instrument Used: 7mm curette Tissue Removed: Slough and devitalized tissue Severity: Fat Layer Exposed Amount of bleeding with debridement: Mild Bleeding Controlled with: Pressure Patient tolerated procedure: Patient tolerated procedure well Post-Debridement Measurements and Additional Note: Post-Debridement Measurements/Treatment WC - Nurse 1 - General Ulcer Assessment Start: 10/04/22 08:12 Freq: Status: Active Protocol: JUSTIN Activity Type Activity Date Activity User E-sign Co-sign Detail Recorded Client Recorded Date Recorded By Document 10/04/22 08:13 BM [id number] 10/04/22 08:20 BMF Document 10/18/22 08:24 [facility] [id number] 10/18/22 08:41 BMF 10/04/22 10/18/22 08:13 08:24 WC - Today's Visit Information Type of service Initial Visit 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 ) Arrival Mode Ambulatory, Ambulatory, Walker Walker Transfer Assistance None None Accompanied by Patient Identification Verified (Name & Yes Yes ) Patient Requires Transmission-Based No No Precautions Finger Stick Blood Sugar(mg/dl) (if 99 indicated): Blood Sugar Stated by Patient Height and Weight Height 5 ft 8 in Weight 233 lb Weight in Pounds 233.0 lbs Weight Measurement Method Stated by Patient Body Mass Index (BMI) 35.4 35.4 BMI Classification Obese Obese BSA - Taya 2.18 Vital Signs Temperature (97.8 F-99.1 F) 97 F L 97.1 F L Temperature Source Temporal Temporal Pulse Rate (60-100) 114 H Pulse Location Monitor Respiratory Rate (12-18) 16 16 Respiratory rate source Observation Observation Oxygen Delivery Method Room Air Room Air Blood Pressure (90/60-120/80) 135/97 H 178/99 H Blood Pressure Mean (mm Hg) 109 125 Source Monitor Monitor Position Sitting Sitting Blood Pressure Location Left Arm Right Arm History Since Last Visit- (Skip if this is Patient's initial visit) Have you changed medications since your No last visit? Any new allergies or adverse reactions No Had a fall/change in ADL's that may No increase risk of falls Signs or symptoms of abuse and/or No neglect since last visit Have you been in the hospital since your No last visit? Has dressing in place as prescribed Yes Has compression in place as prescribed N/A Has offloadiing in place as prescribed N/A Experienced any changes in pain level or No management Left Footwear Regular Shoe Regular Shoe Right Footwear Regular Shoe Regular Shoe Pain Scale: 0-10 Numeric Is Patient Pain Free? Yes Yes Communication Assessment Preferred language [place] Clerical Secretary Required No Able to Read Yes Able to Write Yes Communication Tools None Right Hearing Abillity Normal Left Hearing Abillity Normal Visual Assistive Devices Glasses Teaching Assessment Preferences Verbal,Written, Audio/Visual, Demonstration Barriers to Learning None Readiness To Learn Excellent Willingness to Engage in Self Management High Activies Readiness to Engage in Self Management High Activities Anxiety Level Calm Cooperation Cooperative Perception Coherent Interest in Health Problem Asks Questions Education Importance Acknowledges Need Does Patient Smoke tobacco or other No substances Smoking Status Never smoker Is Patient Diabetic Yes Functional Assessment Recent Decline in Ability to Perform Denies Any Declines Culture/Tenriism/Simulation Technician Cultural/Tenriism Needs that may affect No Treatment Plan Teaching: Wound Center *Welcome to the Wound Center -Person Taught Patient, Significant Other -Response to teaching Verbalize understanding Welcome to the Wound Care Center English ROE - Nurse 1 - General Ulcer Measurement Start: 10/04/22 08:12 Freq: Status: Active Protocol: Activity Type Activity Date Activity User E-sign Co-sign Detail Recorded Client Recorded Date Recorded By Document 10/04/22 08:13 [facility] [id number] 10/04/22 08:20 [facility] Document 10/18/22 08:24 [facility] [id number] 10/18/22 08:41 [facility] 10/04/22 10/18/22 08:13 08:24 Wound Center Nurse 1 #1- ABDOMINAL POST OP -Combined with other wound No No -Current Size (cm) - Length 22.2 19.6 -Current Size (cm) - Width 8.3 4.8 -Current Size (cm) - Depth 3.5 2.6 -Total Square Cm 184.26 94.08 -Date of Last Picture (Recall this 10/04/22 10/18/22 field) -Photo Taken Yes Yes -Epithelialization Small 1-33% -Tunneling No No -Tunneling Position (O'clock) 2 -Tunneling Distance (cm) 1.5 -Undermining/Tunneling Yes Yes -Undermining/Tunneling Starts (O'clock 5 11 ) -Undermining/Tunneling Ends (O'clock) 7 12 -Maximum Distance (cm) 3.5 1.6 -Undermining/Tunneling Starts #2 (O' 5 clock) -Undermining/Tunneling Ends #2 (O' 5 clock) -Maximum Distance #2 (cm) 2.2 -Exudate Amt Large Large -Exudate Type Serosanguineous Sanguineous -Wound Margin Distinct, Distinct, Outline Outline Attached Attached -Granulation Amt Large (67-100%) Large (67-100%) -Granulation Quality Red Red -Slough/Fibrin Yes Yes -Necrosis Amt Small (1-33%) Small (1-33%) -Necrotic Tissue Type Adherent Slough Adherent Slough -Texture (Matilde-wound Skin Appearance) Assessed, Assessed, Scarring Scarring -Moisture (Matilde-wound Skin Appearance) Assessed Assessed -Color (Matilde-wound Skin Appearance) Assessed Assessed -Temperature (Matilde-wound Skin No Abnormality No Abnormality Appearance) (Pt Warm) (Pt Warm) -Tenderness on Palpation (Matilde-wound No No Skin Appearance) -Ulcer Cleansing Soap and Water Soap and Water -Foul Odor after Cleansing No No -Anesthetic Used 4% Lidocaine 4% Lidocaine Solution Solution WC - Nurse 2 - General Ulcer CM Notes Start: 10/04/22 08:12 Freq: Status: Active Protocol: Activity Type Activity Date Activity User E-sign Co-sign Detail Recorded Client Recorded Date Recorded By Document 10/04/22 08:45 MW [id number] 10/04/22 08:58 MW Edit Result 10/04/22 08:45 MW (1) [id number] 10/05/22 06:28 PL Document 10/18/22 09:01 MW Desktop 10/18/22 09:06 MW (1) #1- ABDOMINAL POST OP - Debridement, SubQ, ea addt'l 20sq cm => 9 or part thereof 10/04/22 10/18/22 08:45 09:01 Wound Center Nurse 2 #1- ABDOMINAL POST OP -Time 08:45 09:04 -Correct Patient Yes Yes -Correct Side, Site, Position Yes Yes -Correct Procedure Yes Yes -Procedure Performed Yes Yes -Type of Procedure Debridement Debridement -Clinical Debridement Subcutaneous Subcutaneous -Tissue Removed Subcutaneous Subcutaneous -Post Debridement (cm) - Length 23.5 20.5 -Post Debridement (cm) - Width 8.0 5.3 -Post Debridement (cm) - Depth 5.3 3.5 -Total Square (Post) (cm) 188.00 108.65 -Area of Debridement (cm) - Length 23.5 20.5 -Area of Debridement (cm) - Width 8.0 5.3 -Total Square (Area) (cm) 188.00 108.65 -Tunneling No No -Undermining/Tunneling Yes No -Undermining/Tunneling Starts (O'clock 5 ) -Undermining/Tunneling Ends (O'clock) 8 -Maximum Distance (cm) 4.5 -Circular Undermining No No -Wound/Ulcer Outcome Not Healed Not Healed -Ulcer Cleansing Rinsed/ Rinsed/ Irrigated with Irrigated with Saline Saline -Foul Odor after Cleansing No No -Bioengineered Tissue No No -Bleeding Controlled with Pressure Pressure -Treatment Response Procedure Procedure Tolerated Well Tolerated Well -Offloading No No -Debridement - Subq, 1st 20sq cm Yes Yes -Debridement, SubQ, ea addt'l 20sq cm 9 5 or part thereof Pain Scale: 0-10 Numeric Is Patient Pain Free? Yes Yes - Nurse 3 - General Ulcer D/C NN Start: 10/04/22 08:12 Freq: Status: Active Protocol: Activity Type Activity Date Activity User E-sign Co-sign Detail Recorded Client Recorded Date Recorded By Document 10/04/22 09:34 [id number] 10/04/22 09:35 10/04/22 09:34 Wound Care Center Nurse 3 #1- ABDOMINAL POST OP -Ulcer Cleansing Soap and Water -Negative Pressure Wound Therapy Continue -Setting (mmHg) 150 -Negative Pressure is Continuous -NPWT Application Charge NPWT & Debridement (nc ) Pain Scale: 0-10 Numeric Is Patient Pain Free? Yes - Visit Discharge Discharge Condition Stable Ambulatory Status Ambulatory, Walker Transportation Private Auto Accompanied by Medication Reconcilliation completed & Yes provided to patient/care provider Assessment/Plan Assessment/Plan (1) Non-healing surgical wound: CODE(S): T81.89XA - Other complications of procedures, not elsewhere classified, initial encounter (2) S/P colectomy: CODE(S): Z90.49 - Acquired absence of other specified parts of digestive tract (3) Colostomy in place: CODE(S): Z93.3 - Colostomy status (4) Type 2 diabetes mellitus: CODE(S): E11.9 - Type 2 diabetes mellitus without complications (5) Perforation of sigmoid colon due to diverticulitis: CODE(S): K57.20 - Diverticulitis of large intestine with perforation and abscess without bleeding PLAN: Plan Debridement done as documented above, procedure was well-tolerated. Improving. They report bleeding with Vac changes. He states that he typically bleeds easily, not on a blood thinner. Patient and his were advised to speak with PCP about monitoring CBC and also a referral to hematology for work-up. For now, continue wound VAC at 150 mmHg and change every other day by home health. Continue adequate protein intake, Vitamin C, D and zinc. Their questions were answered and they were advised to call if they have any further questions or concerns. Patient and voiced understanding. Follow-up in 2 weeks or sooner if needed. This note was generated with [employer] dictation software. It may contain incorrect words, spelling, and punctuation that were not noted in checking the note before signing.
== END 2022-10-25 23:59 | disposition home or self-care (01) ==
LOC: WC 08:15
PROVIDERS: PCP Internal Medicine; Referring Provider Internal Medicine; Visit Provider Internal Medicine
DX: T81.89XA Other complications of procedures, not elsewhere classified, initial encounter (principal); Z93.3 Colostomy status; Z79.4 Long term (current) use of insulin; E11.9 Type 2 diabetes mellitus without complications; K57.20 Diverticulitis of large intestine with perforation and abscess without bleeding; Z90.49 Acquired absence of other specified parts of digestive tract; I10 Essential (primary) hypertension; Z86.16 Personal history of COVID-19; Z79.82 Long term (current) use of aspirin
CPT/HCPCS: 11042; 11045; 99213; G0463

== ENCOUNTER 2022-11-15 08:15 | Outpatient (RCR) | payer OTHER, SELFPAY ==
[2022-10-26 00:40] VITALS: BP 178/99; PULSE 114; RESP 16; TEMP 36.2; BMI 35.4
[2022-11-01 08:20] VITALS: TEMP 36.4; BMI 35.4
--- NOTE | 2022-11-01 08:47 | PCM.WC.PN ---
History of Present Illness Date of Service: 11/01/22 Chief Complaint: Non healing surgical wound History of Wound: Mr. Duque is a 61 yo who presents here due to non healing surgical wound. History of perforated diverticulitis necessitating partial colectomy and a diverting colostomy. Hospital stay also complicated by intra-abdominal abscess. Following his hospital stay in July, he was admitted at the TCU for rehabilitation at which time he had local wound care with [facility]. Was seen by his general surgeon about a week ago following which he was started on a wound VAC on Saturday. So far tolerating wound VAC well. Progress of Wound: Improving. No new concerns at this time. Objective Data Objective Data Vital Signs: Vital Signs Temp Pulse Resp BP O2 Del Method 97.5 F L 114 H 16 178/99 H Room Air 11/01/22 08:20 10/26/22 00:40 10/26/22 00:40 10/26/22 00:40 11/01/22 08:20 Oxygen Delivery Method Room Air Weight: 233 lb Body Mass Index (BMI) 35.4 Charges/Coding Procedures Integumentary 111xxx-113xx: 38905 Hannah subq tissue 20 sq cm/< Add On Codes: 08444 Hannah subq tissue add-on (x 4. Additional Sq CM debrided, please refer to clinical note.) Physical Exam Const alert, oriented x3 and no apparent distress General Appearance: cooperative, comfortable and well kempt HEENT normocephalic, head/scalp atraumatic and hearing grossly normal bilaterally Eyes PERRL and EOMs intact bilaterally General Eye: normal appearance of both eyes Neck full ROM and supple General: normal visual inspection Resp normal respiratory effort and normal air movement GI non-tender and non-distended GI Narrative: Large midline abdominal wound, colostomy. Skin Wounds: wounds noted Neuro oriented x3, CN's II-XII intact bilaterally, moves all extremities and no focal motor deficits Psych mental status grossly normal, thought process normal and cooperative Debridement Note Debridement Note Wound debrided: Abdominal Type of Debridement: Excisional debridement Anesthesia Used: 4% Lidocaine Solution Depth: Down to and including healthy tissue and in the subcutaneous layer Percentage of wound debrided: 100 Instrument Used: 7mm curette Tissue Removed: Slough and devitalized tissue Severity: Fat Layer Exposed Amount of bleeding with debridement: Mild Bleeding Controlled with: Pressure Patient tolerated procedure: Patient tolerated procedure well Post-Debridement Measurements and Additional Note: Post-Debridement Measurements/Treatment - Nurse 1 - General Ulcer Assessment Start: 11/01/22 08:20 Freq: Status: Active Protocol: JUSTIN Activity Type Activity Date Activity User E-sign Co-sign Detail Recorded Client Recorded Date Recorded By Document 11/01/22 08:20 [facility] [id number] 11/01/22 08:26 [facility] 11/01/22 08:20 WC - Today's Visit Information Type of service 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 Any new allergies or adverse reactions No Had a fall/change in ADL's that may No increase risk of falls Signs or symptoms of abuse and/or No neglect since last visit Have you been in the hospital since your No last visit? Has dressing in place as prescribed Yes Has compression in place as prescribed N/A Has offloadiing in place as prescribed N/A Experienced any changes in pain level or No management Left Footwear Regular Shoe Right Footwear Regular Shoe Pain Scale: 0-10 Numeric Is Patient Pain Free? Yes - Nurse 1 - General Ulcer Measurement Start: 11/01/22 08:20 Freq: Status: Active Protocol: Activity Type Activity Date Activity User E-sign Co-sign Detail Recorded Client Recorded Date Recorded By Document 11/01/22 08:20 [facility] [id number] 11/01/22 08:26 [facility] 11/01/22 08:20 Wound Center Nurse 1 #1- ABDOMINAL POST OP -Combined with other wound No -Current Size (cm) - Length 17 -Current Size (cm) - Width 5 -Current Size (cm) - Depth 1.2 -Total Square Cm 85 -Date of Last Picture (Recall this 11/01/22 field) -Photo Taken Yes -Epithelialization Small 1-33% -Tunneling No -Undermining/Tunneling Yes -Undermining/Tunneling Starts (O'clock 3 ) -Undermining/Tunneling Ends (O'clock) 4 -Maximum Distance (cm) 0.5 -Exudate Amt Large -Exudate Type Serosanguineous -Wound Margin Distinct, Outline Attached -Granulation Amt Large (67-100%) -Granulation Quality Red -Slough/Fibrin Yes -Necrosis Amt Small (1-33%) -Necrotic Tissue Type Adherent Slough -Texture (Matilde-wound Skin Appearance) Assessed, Scarring -Moisture (Matilde-wound Skin Appearance) Assessed -Color (Matilde-wound Skin Appearance) Assessed -Temperature (Matilde-wound Skin No Abnormality Appearance) (Pt Warm) -Tenderness on Palpation (Matilde-wound No Skin Appearance) -Ulcer Cleansing Soap and Water -Foul Odor after Cleansing No -Anesthetic Used 4% Lidocaine Solution WC - Nurse 2 - General Ulcer CM Notes Start: 11/01/22 08:20 Freq: Status: Active Protocol: Activity Type Activity Date Activity User E-sign Co-sign Detail Recorded Client Recorded Date Recorded By Document 11/01/22 08:41 MISHA [id number] 11/01/22 08:43 MISHA 11/01/22 08:41 Wound Center Nurse 2 -Time 08:41 -Correct Patient Yes -Correct Side, Site, Position Yes -Correct Procedure Yes -Procedure Performed Yes -Type of Procedure Debridement -Clinical Debridement Subcutaneous -Tissue Removed Subcutaneous -Post Debridement (cm) - Length 18.8 -Post Debridement (cm) - Width 5.2 -Post Debridement (cm) - Depth 2.7 -Total Square (Post) (cm) 97.76 -Area of Debridement (cm) - Length 18.8 -Area of Debridement (cm) - Width 5.2 -Total Square (Area) (cm) 97.76 -Undermining/Tunneling Yes -Undermining/Tunneling Starts (O'clock 10 ) -Undermining/Tunneling Ends (O'clock) 11 -Maximum Distance (cm) 2.7 -Undermining/Tunneling Starts #2 (O' 5 clock) -Maximum Distance #2 (cm) 4.3 -Circular Undermining No -Wound/Ulcer Outcome Not Healed -Ulcer Cleansing Rinsed/ Irrigated with Saline -Foul Odor after Cleansing No -Bioengineered Tissue No -Bleeding Controlled with Pressure -Treatment Response Procedure Tolerated Well -Offloading No -Debridement - Subq, 1st 20sq cm Yes -Debridement, SubQ, ea addt'l 20sq cm 4 or part thereof Pain Scale: 0-10 Numeric Is Patient Pain Free? Yes Assessment/Plan Assessment/Plan (1) Non-healing surgical wound: CODE(S): T81.89XA - Other complications of procedures, not elsewhere classified, initial encounter (2) S/P colectomy: CODE(S): Z90.49 - Acquired absence of other specified parts of digestive tract (3) Colostomy in place: CODE(S): Z93.3 - Colostomy status (4) Type 2 diabetes mellitus: CODE(S): E11.9 - Type 2 diabetes mellitus without complications (5) Perforation of sigmoid colon due to diverticulitis: CODE(S): K57.20 - Diverticulitis of large intestine with perforation and abscess without bleeding PLAN: Plan Debridement done as documented above, procedure was well-tolerated. Improving. For now, continue wound VAC at 150 mmHg and change every other day by home health. Continue adequate protein intake, Vitamin C, D and zinc. Their questions were answered and they were advised to call if they have any further questions or concerns. Patient and voiced understanding. Follow-up in 2 weeks or sooner if needed. This note was generated with [employer] dictation software. It may contain incorrect words, spelling, and punctuation that were not noted in checking the note before signing.
[2022-11-15 08:19] VITALS: BP 157/100; PULSE 111; RESP 18; TEMP 36.5; BMI 35.4
--- NOTE | 2022-11-15 08:48 | PN.PCM_ITS ---
History of Present Illness Date of Service: 11/15/22 Chief Complaint: Non healing surgical wound History of Wound: Mr. Duque is a 61 yo who presents here due to non healing surgical wound. History of perforated diverticulitis necessitating partial colectomy and a diverting colostomy. Hospital stay also complicated by intra- abdominal abscess. Following his hospital stay in July, he was admitted at the TCU for rehabilitation at which time he had local wound care with [facility]. Was seen by his general surgeon about a week ago following which he was started on a wound VAC on Saturday. So far tolerating wound VAC well. Progress of Wound: Improving. No new concerns at this time. Objective Data Objective Data Vital Signs: Vital Signs Temp Pulse Resp BP O2 Del Method 97.7 F L 111 H 18 157/100 H Room Air 11/15/22 08:19 11/15/22 08:19 11/15/22 08:19 11/15/22 08:19 11/01/22 08:20 Oxygen Delivery Method Room Air Weight: 233 lb Body Mass Index (BMI) 35.4 Charges/Coding Procedures Integumentary 111xxx-113xx: 67040 Hannah subq tissue 20 sq cm/< Add On Codes: 52555 Hannah subq tissue add-on (x 4. Additional Sq CM debrided, please refer to clinical note.) Physical Exam Const alert, oriented x3 and no apparent distress General Appearance: cooperative, comfortable and well kempt HEENT normocephalic, head/scalp atraumatic and hearing grossly normal bilaterally Eyes PERRL and EOMs intact bilaterally General Eye: normal appearance of both eyes Neck full ROM and supple General: normal visual inspection Resp normal respiratory effort GI non-tender and non-distended GI Narrative: Large midline abdominal wound, colostomy. Skin Wounds: wounds noted Neuro oriented x3, CN's II-XII intact bilaterally, moves all extremities and no focal motor deficits Psych mental status grossly normal, thought process normal and cooperative Debridement Note Debridement Note Wound debrided: Abdominal Type of Debridement: Excisional debridement Anesthesia Used: 4% Lidocaine Solution Depth: Down to and including healthy tissue and in the subcutaneous layer Percentage of wound debrided: 100 Instrument Used: 7mm curette Tissue Removed: Slough and devitalized tissue Severity: Fat Layer Exposed Amount of bleeding with debridement: Mild Bleeding Controlled with: Pressure Patient tolerated procedure: Patient tolerated procedure well Post-Debridement Measurements and Additional Note: Post-Debridement Measurements/Treatment - Nurse 1 - General Ulcer Assessment Start: 11/01/22 08:20 Freq: Status: Active Protocol: JUSTIN Activity Type Activity Date Activity User E-sign Co-sign Detail Recorded Client Recorded Date Recorded By Document 11/01/22 08:20 [facility] [id number] 11/01/22 08:26 BM Document 11/15/22 08:19 RB Desktop 11/15/22 08:25 RB 11/01/22 11/15/22 08:20 08:19 WC - Today's Visit Information Type of service Follow-up Visit Follow-up Visit (Physician/PARKING LOT ATTENDANT AND CASHIER (Physician/PARKING LOT ATTENDANT AND CASHIER ) ) Arrival Mode Ambulatory Ambulatory Transfer Assistance None None Patient Identification Verified (Name & Yes Yes ) Patient Requires Transmission-Based No No Precautions Height and Weight Body Mass Index (BMI) 35.4 35.4 BMI Classification Obese Obese Vital Signs Temperature (97.8 F-99.1 F) 97.5 F L 97.7 F L Temperature Source Temporal Temporal Pulse Rate (60-100) 111 H Pulse Location Monitor Monitor Respiratory Rate (12-18) 18 Respiratory rate source Observation Observation Oxygen Delivery Method Room Air Blood Pressure (90/60-120/80) 157/100 H Blood Pressure Mean (mm Hg) 119 Source Monitor Monitor Position Sitting Sitting Blood Pressure Location Left Arm Left Arm History Since Last Visit- (Skip if this is Patient's initial visit) Have you changed medications since your No No last visit? Any new allergies or adverse reactions No No Had a fall/change in ADL's that may No No increase risk of falls Signs or symptoms of abuse and/or No No neglect since last visit Have you been in the hospital since your No No last visit? Has dressing in place as prescribed Yes Yes Has compression in place as prescribed N/A No Has offloadiing in place as prescribed N/A No Experienced any changes in pain level or No No management Left Footwear Regular Shoe Right Footwear Regular Shoe Pain Scale: 0-10 Numeric Is Patient Pain Free? Yes Yes [id number] - Nurse 1 - General Ulcer Measurement Start: 11/01/22 08:20 Freq: Status: Active Protocol: Activity Type Activity Date Activity User E-sign Co-sign Detail Recorded Client Recorded Date Recorded By Document 11/01/22 08:20 [facility] [id number] 11/01/22 08:26 [facility] Document 11/15/22 08:19 RB Desktop 11/15/22 08:25 RB 11/01/22 11/15/22 08:20 08:19 Wound Center Nurse 1 #1- ABDOMINAL POST OP -Combined with other wound No No -Current Size (cm) - Length 17 17.4 -Current Size (cm) - Width 5 5.7 -Current Size (cm) - Depth 1.2 0.8 -Total Square Cm 85 99.18 -Date of Last Picture (Recall this 11/01/22 field) -Photo Taken Yes No -Epithelialization Small 1-33% -Tunneling No No -Undermining/Tunneling Yes Yes -Undermining/Tunneling Starts (O'clock 3 11 ) -Undermining/Tunneling Ends (O'clock) 4 11 -Maximum Distance (cm) 0.5 2.1 -Undermining/Tunneling Starts #2 (O' 5 clock) -Undermining/Tunneling Ends #2 (O' 5 clock) -Maximum Distance #2 (cm) 3.3 -Circular Undermining No -Exudate Amt Large Large -Exudate Type Serosanguineous Serosanguineous -Wound Margin Distinct, Distinct, Outline Outline Attached Attached -Granulation Amt Large (67-100%) Large (67-100%) -Granulation Quality Red [place],Red -Slough/Fibrin Yes Yes -Necrosis Amt Small (1-33%) Medium (34-66%) -Necrotic Tissue Type Adherent Slough Adherent Slough -Structure Exposed N/A -Texture (Matilde-wound Skin Appearance) Assessed, Assessed, Scarring Scarring -Moisture (Matilde-wound Skin Appearance) Assessed Assessed -Color (Matilde-wound Skin Appearance) Assessed Assessed -Temperature (Matilde-wound Skin No Abnormality No Abnormality Appearance) (Pt Warm) (Pt Warm) -Tenderness on Palpation (Matilde-wound No No Skin Appearance) -Ulcer Cleansing Soap and Water Wound Cleanser -Foul Odor after Cleansing No No -Anesthetic Used 4% Lidocaine 4% Lidocaine Solution Solution WC - Nurse 2 - General Ulcer CM Notes Start: 11/01/22 08:20 Freq: Status: Active Protocol: Activity Type Activity Date Activity User E-sign Co-sign Detail Recorded Client Recorded Date Recorded By Document 11/01/22 08:41 [id number] 11/01/22 08:43 Document 11/15/22 08:29 Desktop 11/15/22 08:35 11/01/22 11/15/22 08:41 08:29 Wound Center Nurse 2 #1- ABDOMINAL POST OP -Time 08:41 08:29 -Correct Patient Yes Yes -Correct Side, Site, Position Yes Yes -Correct Procedure Yes Yes -Procedure Performed Yes Yes -Type of Procedure Debridement Debridement -Clinical Debridement Subcutaneous Subcutaneous -Tissue Removed Subcutaneous Subcutaneous -Post Debridement (cm) - Length 18.8 17 -Post Debridement (cm) - Width 5.2 5.0 -Post Debridement (cm) - Depth 2.7 1.7 -Total Square (Post) (cm) 97.76 85.0 -Area of Debridement (cm) - Length 18.8 17 -Area of Debridement (cm) - Width 5.2 5.0 -Total Square (Area) (cm) 97.76 85.0 -Tunneling Yes -Tunneling Position (O'clock) 5 -Tunneling Distance (cm) 3.2 -Undermining/Tunneling Yes Yes -Undermining/Tunneling Starts (O'clock 10 10 ) -Undermining/Tunneling Ends (O'clock) 11 11 -Maximum Distance (cm) 2.7 2.6 -Undermining/Tunneling Starts #2 (O' 5 clock) -Maximum Distance #2 (cm) 4.3 -Circular Undermining No No -Wound/Ulcer Outcome Not Healed Not Healed -Ulcer Cleansing Rinsed/ Rinsed/ Irrigated with Irrigated with Saline Saline -Foul Odor after Cleansing No No -Bioengineered Tissue No No -Bleeding Controlled with Pressure Pressure -Treatment Response Procedure Procedure Tolerated Well Tolerated Well -Offloading No No -Debridement - Subq, 1st 20sq cm Yes Yes -Debridement, SubQ, ea addt'l 20sq cm 4 4 or part thereof Pain Scale: 0-10 Numeric Is Patient Pain Free? Yes Yes WC - Nurse 3 - General Ulcer D/C NN Start: 11/01/22 08:20 Freq: Status: Active Protocol: Activity Type Activity Date Activity User E-sign Co-sign Detail Recorded Client Recorded Date Recorded By Document 11/01/22 09:10 [facility] [id number] 11/01/22 09:11 RB Edit Result 11/01/22 09:10 RB (1) [id number] 11/01/22 09:15 RB (1) Notes: => foam packed into both tunnels at 5;00 and 10 to 11;00 as directed 11/01/22 09:10 Wound Care Center Nurse 3 #1- ABDOMINAL POST OP -Ulcer Cleansing Rinsed/ Irrigated with Saline -Negative Pressure Wound Therapy Continue -Setting (mmHg) 150 -Negative Pressure is Continuous -NPWT Application Charge NPWT & Debridement (nc ) Matilde-Wound Care Barrier Treatment Response Procedure Tolerated Well Pain Scale: 0-10 Numeric Is Patient Pain Free? Yes WC - Visit Discharge Discharge Condition Stable Ambulatory Status Ambulatory, Walker Transportation Private Auto Medication Reconcilliation completed & No provided to patient/care provider Clinical Summary of Care Provided Yes Notes: foam packed into both tunnels at 5;00 and 10 to 11; 00 as directed Assessment/Plan Assessment/Plan (1) Non-healing surgical wound: CODE(S): T81.89XA - Other complications of procedures, not elsewhere classified, initial encounter (2) S/P colectomy: CODE(S): Z90.49 - Acquired absence of other specified parts of digestive tract (3) Colostomy in place: CODE(S): Z93.3 - Colostomy status (4) Type 2 diabetes mellitus: CODE(S): E11.9 - Type 2 diabetes mellitus without complications (5) Perforation of sigmoid colon due to diverticulitis: CODE(S): K57.20 - Diverticulitis of large intestine with perforation and abscess without bleeding PLAN: Plan Debridement done as documented above, procedure was well-tolerated. Improving. For now, continue wound VAC at 150 mmHg and change every other day by home health. Continue adequate protein intake, Vitamin C, D and zinc. Their questions were answered and they were advised to call if they have any further questions or concerns. Patient and voiced understanding. Follow-up in 2 weeks or sooner if needed. This note was generated with [employer] software. It may contain incorrect words, spelling, and punctuation that were not noted in checking the note before signing.
== END 2022-11-24 23:59 | disposition home or self-care (01) ==
LOC: WC 08:15
PROVIDERS: PCP Internal Medicine; Referring Provider Internal Medicine; Visit Provider Internal Medicine
DX: T81.89XA Other complications of procedures, not elsewhere classified, initial encounter (principal); Z93.3 Colostomy status; E11.9 Type 2 diabetes mellitus without complications; K57.20 Diverticulitis of large intestine with perforation and abscess without bleeding; Z90.49 Acquired absence of other specified parts of digestive tract
CPT/HCPCS: 11042; 11045

== ENCOUNTER 2022-12-20 08:30 | Outpatient (RCR) | payer OTHER, SELFPAY ==
[2022-11-25 00:44] VITALS: BP 157/100; PULSE 111; RESP 18; TEMP 36.5; BMI 35.4
[2022-11-29 08:12] VITALS: BP 181/97; PULSE 111; RESP 16; TEMP 36.6; BMI 35.4
--- NOTE | 2022-11-29 09:22 | PCM.WC.PN ---
History of Present Illness Date of Service: 11/29/22 Chief Complaint: Non healing surgical wound History of Wound: Mr. Duque is a 61 yo who presents here due to non healing surgical wound. History of perforated diverticulitis necessitating partial colectomy and a diverting colostomy. Hospital stay also complicated by intra-abdominal abscess. Following his hospital stay in July, he was admitted at the TCU for rehabilitation at which time he had local wound care with [facility]. Was seen by his general surgeon about a week ago following which he was started on a wound VAC on Saturday. So far tolerating wound VAC well. Progress of Wound: Wound is improving. He reports increased drainage and a foul smell. Objective Data Objective Data Vital Signs: Vital Signs Temp Pulse Resp BP O2 Del Method 97.8 F 111 H 16 181/97 H Room Air 11/29/22 08:12 11/29/22 08:12 11/29/22 08:12 11/29/22 08:12 11/29/22 08:12 Oxygen Delivery Method Room Air Weight: 233 lb Body Mass Index (BMI) 35.4 Charges/Coding Procedures Integumentary 111xxx-113xx: 80379 Hannah subq tissue 20 sq cm/< Add On Codes: 28584 Hannah subq tissue add-on (x 3. Additional Sq CM debrided, please refer to clinical note.) Physical Exam Const alert, oriented x3 and no apparent distress General Appearance: cooperative, comfortable and well kempt HEENT normocephalic, head/scalp atraumatic and hearing grossly normal bilaterally Eyes PERRL and EOMs intact bilaterally General Eye: normal appearance of both eyes Neck full ROM and supple General: normal visual inspection Resp normal respiratory effort GI non-tender and non-distended GI Narrative: Large midline abdominal wound, colostomy. Skin Wounds: wounds noted Neuro oriented x3, CN's II-XII intact bilaterally, moves all extremities and no focal motor deficits Psych mental status grossly normal, thought process normal and cooperative Debridement Note Debridement Note Wound debrided: Abdominal Type of Debridement: Excisional debridement Anesthesia Used: 4% Lidocaine Solution Depth: Down to and including healthy tissue and in the subcutaneous layer Percentage of wound debrided: 100 Instrument Used: 7mm curette Tissue Removed: Slough and devitalized tissue Severity: Fat Layer Exposed Amount of bleeding with debridement: Mild Bleeding Controlled with: Pressure Patient tolerated procedure: Patient tolerated procedure well Post-Debridement Measurements and Additional Note: Post-Debridement Measurements/Treatment - Nurse 1 - General Ulcer Assessment Start: 11/29/22 08:12 Freq: Status: Active Protocol: JUSTIN Activity Type Activity Date Activity User E-sign Co-sign Detail Recorded Client Recorded Date Recorded By Document 11/29/22 08:12 [facility] Desktop 11/29/22 08:23 [facility] 11/29/22 08:12 WC - Today's Visit Information Type of service Follow-up Visit (Physician/BEHAVIORAL HEALTH THERAPIST ) Arrival Mode Ambulatory Transfer Assistance None Accompanied by Patient Identification Verified (Name & Yes ) Patient Requires Transmission-Based No Precautions Height and Weight Body Mass Index (BMI) 35.4 BMI Classification Obese Vital Signs Temperature (97.8 F-99.1 F) 97.8 F Temperature Source Temporal Pulse Rate (60-100) 111 H Pulse Location Monitor Respiratory Rate (12-18) 16 Respiratory rate source Observation Oxygen Delivery Method Room Air Blood Pressure (90/60-120/80) 181/97 H Blood Pressure Mean (mm Hg) 125 Source Monitor Position Sitting Blood Pressure Location Left Arm History Since Last Visit- (Skip if this is Patient's initial visit) Have you changed medications since your No last visit? Any new allergies or adverse reactions No Had a fall/change in ADL's that may No increase risk of falls Signs or symptoms of abuse and/or No neglect since last visit Have you been in the hospital since your No last visit? Has dressing in place as prescribed Yes Has compression in place as prescribed N/A Has offloadiing in place as prescribed N/A Experienced any changes in pain level or No management Left Footwear Regular Shoe Right Footwear Regular Shoe Pain Scale: 0-10 Numeric Is Patient Pain Free? Yes - Nurse 1 - General Ulcer Measurement Start: 11/29/22 08:12 Freq: Status: Active Protocol: Activity Type Activity Date Activity User E-sign Co-sign Detail Recorded Client Recorded Date Recorded By Document 11/29/22 08:12 [facility] Desktop 11/29/22 08:23 [facility] 11/29/22 08:12 Wound Center Nurse 1 #1- ABDOMINAL POST OP -Combined with other wound No -Current Size (cm) - Length 15.6 -Current Size (cm) - Width 5.2 -Current Size (cm) - Depth 1.5 -Total Square Cm 81.12 -Epithelialization Small 1-33% -Tunneling No -Undermining/Tunneling Yes -Undermining/Tunneling Starts (O'clock 5 ) -Undermining/Tunneling Ends (O'clock) 5 -Maximum Distance (cm) 1.4 -Undermining/Tunneling Starts #2 (O' 11 clock) -Undermining/Tunneling Ends #2 (O' 11 clock) -Maximum Distance #2 (cm) 1.4 -Circular Undermining No -Exudate Amt Medium -Exudate Type Serosanguineous -Wound Margin Distinct, Outline Attached -Granulation Amt Large (67-100%) -Granulation Quality Red -Slough/Fibrin No -Necrosis Amt None Present (0 %) -Texture (Matilde-wound Skin Appearance) Assessed, Scarring -Moisture (Matilde-wound Skin Appearance) Assessed -Color (Matilde-wound Skin Appearance) Assessed -Temperature (Matilde-wound Skin No Abnormality Appearance) (Pt Warm) -Tenderness on Palpation (Matilde-wound No Skin Appearance) -Ulcer Cleansing Soap and Water -Foul Odor after Cleansing No -Anesthetic Used 4% Lidocaine Solution WC - Nurse 2 - General Ulcer CM Notes Start: 11/29/22 08:12 Freq: Status: Active Protocol: Activity Type Activity Date Activity User E-sign Co-sign Detail Recorded Client Recorded Date Recorded By Document 11/29/22 08:32 [facility] Desktop 11/29/22 08:40 [facility] 11/29/22 08:32 Wound Center Nurse 2 -Time 08:32 -Correct Patient Yes -Correct Side, Site, Position Yes -Correct Procedure Yes -Procedure Performed Yes -Type of Procedure Debridement -Clinical Debridement Subcutaneous -Tissue Removed Subcutaneous -Post Debridement (cm) - Length 16 -Post Debridement (cm) - Width 4.5 -Post Debridement (cm) - Depth 1.7 -Total Square (Post) (cm) 72.0 -Area of Debridement (cm) - Length 16 -Area of Debridement (cm) - Width 4.5 -Total Square (Area) (cm) 72.0 -Tunneling Yes -Tunneling Position (O'clock) 4 -Tunneling Distance (cm) 2.0 -Tunneling Position #2 (O'clock) 10 -Tunneling Distance #2 (cm) 1.5 -Undermining/Tunneling No -Circular Undermining No -Wound/Ulcer Outcome Not Healed -Ulcer Cleansing Rinsed/ Irrigated with Saline -Foul Odor after Cleansing No -Bioengineered Tissue No -Bleeding Controlled with Pressure -Treatment Response Procedure Tolerated Well -Offloading No -Debridement - Subq, 1st 20sq cm Yes -Debridement, SubQ, ea addt'l 20sq cm 3 or part thereof Pain Scale: 0-10 Numeric Is Patient Pain Free? Yes WC - Nurse 3 - General Ulcer D/C NN Start: 11/29/22 08:12 Freq: Status: Active Protocol: Activity Type Activity Date Activity User E-sign Co-sign Detail Recorded Client Recorded Date Recorded By Document 11/29/22 08:45 [facility] Desktop 11/29/22 08:45 [facility] 11/29/22 08:45 Wound Care Center Nurse 3 #1- ABDOMINAL POST OP -Ulcer Cleansing Rinsed/ Irrigated with Saline -Foul Odor after Cleansing No -Negative Pressure Wound Therapy Continue -Setting (mmHg) 150 -Negative Pressure is Continuous -NPWT Application Charge NPWT & Debridement (nc ) Treatment Response Procedure Tolerated Well Pain Scale: 0-10 Numeric Is Patient Pain Free? Yes WC - Visit Discharge Discharge Condition Stable Ambulatory Status Ambulatory Transportation Private Auto Accompanied by Facility Type Home Health Assessment/Plan Assessment/Plan (1) Non-healing surgical wound: CODE(S): T81.89XA - Other complications of procedures, not elsewhere classified, initial encounter (2) S/P colectomy: CODE(S): Z90.49 - Acquired absence of other specified parts of digestive tract (3) Colostomy in place: CODE(S): Z93.3 - Colostomy status (4) Type 2 diabetes mellitus: CODE(S): E11.9 - Type 2 diabetes mellitus without complications (5) Perforation of sigmoid colon due to diverticulitis: CODE(S): K57.20 - Diverticulitis of large intestine with perforation and abscess without bleeding PLAN: Plan Debridement done as documented above, procedure was well-tolerated. Improving. Cultures taken due to concerns above. For now, continue wound VAC at 150 mmHg and change every other day by home health. Continue adequate protein intake, Vitamin C, D and zinc. Their questions were answered and they were advised to call if they have any further questions or concerns. Patient and voiced understanding. Follow-up in 2 weeks or sooner if needed. This note was generated with [employer] dictation software. It may contain incorrect words, spelling, and punctuation that were not noted in checking the note before signing.
--- NOTE | 2022-12-03 14:27 | WC ---
Addendum entered by Alisia Choi 12/03/22 14:32: Dr. Puga was updated on wound. Original Note: Contacted patient to ask about drainage since his last visit on 11/29/22. Patient reports that they changed the canister after 4 days. Gio does not notice much of an odor but his who was on speaker phone does report a mild odor. Vac was changed on Saturday by [facility].
--- NOTE | 2022-12-04 11:51 | WC ---
ELMO Chavez CM REQUESTED THIS NURSE CALL PT W/ UPDATE THAT ORDER FOR CEFDINIR AND METRONIDAZOLE HAVE BEEN CALLED IN TO PTS PHARM[facility] OF CHOICE PER DR MAI. SPOKE W/ PT WHO VOICES UNDERSTANDING.
[2022-12-13 08:16] VITALS: BP 165/95; PULSE 102; RESP 18; TEMP 36.6; BMI 35.4
--- NOTE | 2022-12-13 09:09 | PN.PCM_ITS ---
History of Present Illness Date of Service: 12/13/22 Chief Complaint: Non healing surgical wound History of Wound: Mr. Duque is a 61 yo who presents here due to non healing surgical wound. History of perforated diverticulitis necessitating partial colectomy and a diverting colostomy. Hospital stay also complicated by intra- abdominal abscess. Following his hospital stay in July, he was admitted at the TCU for rehabilitation at which time he had local wound care with [facility]. Was seen by his general surgeon about a week ago following which he was started on a wound VAC on Saturday. So far tolerating wound VAC well. Progress of Wound: Wound is improving. Foul smell and increased drainage said to have resolved. No new concerns reported at this time. Objective Data Objective Data Vital Signs: Vital Signs Temp Pulse Resp BP O2 Del Method 97.8 F 102 H 18 165/95 H Room Air 12/13/22 08:16 12/13/22 08:16 12/13/22 08:16 12/13/22 08:16 11/29/22 08:12 Oxygen Delivery Method Room Air Weight: 233 lb Body Mass Index (BMI) 35.4 Lab / Micro Data Micro: Microbiology 11/29/22 08:53 Wound - Abdominal Gram Stain - Final 11/29/22 08:53 Wound - Abdominal Wound Culture - Final Staphylococcus epidermidis Corynebacterium striatum Streptococcus constellatus pha Pseudomonas aeruginosa 11/29/22 08:53 Wound - Abdominal Anaerobic Culture - Final Bacteroides fragilis Charges/Coding Procedures Integumentary 111xxx-113xx: 75515 Hannah subq tissue 20 sq cm/< Add On Codes: 18114 Hannah subq tissue add-on (x3. Additional square centimeter debrided, please refer to clinical note.) Physical Exam Const alert, oriented x3 and no apparent distress General Appearance: cooperative, comfortable and well kempt HEENT normocephalic, head/scalp atraumatic and hearing grossly normal bilaterally Eyes PERRL and EOMs intact bilaterally General Eye: normal appearance of both eyes Neck full ROM and supple General: normal visual inspection Resp normal respiratory effort GI non-tender and non-distended GI Narrative: Large midline abdominal wound, colostomy. Skin Wounds: wounds noted Neuro oriented x3, CN's II-XII intact bilaterally, moves all extremities and no focal motor deficits Psych mental status grossly normal, thought process normal and cooperative Debridement Note Debridement Note Wound debrided: Abdominal Type of Debridement: Excisional debridement Anesthesia Used: 4% Lidocaine Solution Depth: Down to and including healthy tissue and in the subcutaneous layer Percentage of wound debrided: 100 Instrument Used: 7mm curette Tissue Removed: Slough and devitalized tissue Severity: Fat Layer Exposed Amount of bleeding with debridement: Mild Bleeding Controlled with: Pressure Patient tolerated procedure: Patient tolerated procedure well Post-Debridement Measurements and Additional Note: Post-Debridement Measurements/Treatment - Nurse 1 - General Ulcer Assessment Start: 11/29/22 08:12 Freq: Status: Active Protocol: [email or web address] Activity Type Activity Date Activity User E-sign Co-sign Detail Recorded Client Recorded Date Recorded By Document 11/29/22 08:12 BM Desktop 11/29/22 08:23 BM Document 12/13/22 08:16 RB Desktop 12/13/22 08:18 RB 11/29/22 12/13/22 08:12 08:16 - Today's Visit Information Type of service Follow-up Visit Follow-up Visit (Physician/PASTE MIXING SUPERVISOR (Physician/PASTE MIXING SUPERVISOR ) ) Arrival Mode Ambulatory Ambulatory Transfer Assistance None None Accompanied by Patient Identification Verified (Name & Yes Yes ) Patient Requires Transmission-Based No No Precautions Height and Weight Body Mass Index (BMI) 35.4 35.4 BMI Classification Obese Obese Vital Signs Temperature (97.8 F-99.1 F) 97.8 F 97.8 F Temperature Source Temporal Temporal Pulse Rate (60-100) 111 H 102 H Pulse Location Monitor Monitor Respiratory Rate (12-18) 16 18 Respiratory rate source Observation Observation Oxygen Delivery Method Room Air Blood Pressure (90/60-120/80) 181/97 H 165/95 H Blood Pressure Mean (mm Hg) 125 118 Source Monitor Monitor Position Sitting Semi-Fowlers Blood Pressure Location Left Arm Left Arm History Since Last Visit- (Skip if this is Patient's initial visit) Have you changed medications since your No No last visit? Any new allergies or adverse reactions No No Had a fall/change in ADL's that may No No increase risk of falls Signs or symptoms of abuse and/or No No neglect since last visit Have you been in the hospital since your No No last visit? Has dressing in place as prescribed Yes Yes Has compression in place as prescribed N/A No Has offloadiing in place as prescribed N/A No Experienced any changes in pain level or No No management Left Footwear Regular Shoe Right Footwear Regular Shoe Pain Scale: 0-10 Numeric Is Patient Pain Free? Yes Yes WC - Nurse 1 - General Ulcer Measurement Start: 11/29/22 08:12 Freq: Status: Active Protocol: Activity Type Activity Date Activity User E-sign Co-sign Detail Recorded Client Recorded Date Recorded By Document 11/29/22 08:12 BMF Desktop 11/29/22 08:23 BMF Document 12/13/22 08:16 RB Desktop 12/13/22 08:18 RB 11/29/22 12/13/22 08:12 08:16 Wound Center Nurse 1 #1- ABDOMINAL POST OP -Combined with other wound No No -Current Size (cm) - Length 15.6 14.8 -Current Size (cm) - Width 5.2 5.1 -Current Size (cm) - Depth 1.5 1 -Total Square Cm 81.12 75.48 -Photo Taken Yes -Epithelialization Small 1-33% -Tunneling No No -Tunneling Position (O'clock) 10 -Tunneling Distance (cm) 0.8 -Tunneling Position #2 (O'clock) 5 -Tunneling Distance #2 (cm) 1.1 -Undermining/Tunneling Yes No -Undermining/Tunneling Starts (O'clock 5 ) -Undermining/Tunneling Ends (O'clock) 5 -Maximum Distance (cm) 1.4 -Undermining/Tunneling Starts #2 (O' 11 clock) -Undermining/Tunneling Ends #2 (O' 11 clock) -Maximum Distance #2 (cm) 1.4 -Circular Undermining No No -Exudate Amt Medium Large -Exudate Type Serosanguineous Serosanguineous -Wound Margin Distinct, Thickened & Outline Rolled Under Attached -Granulation Amt Large (67-100%) Medium (34-66%) -Granulation Quality Red [place] -Slough/Fibrin No Yes -Necrosis Amt None Present (0 Medium (34-66%) %) -Necrotic Tissue Type Adherent Slough -Structure Exposed N/A -Texture (Matilde-wound Skin Appearance) Assessed, Assessed Scarring -Moisture (Matilde-wound Skin Appearance) Assessed Assessed -Color (Matilde-wound Skin Appearance) Assessed Assessed -Temperature (Matilde-wound Skin No Abnormality No Abnormality Appearance) (Pt Warm) (Pt Warm) -Tenderness on Palpation (Matilde-wound No No Skin Appearance) -Ulcer Cleansing Soap and Water Wound Cleanser -Foul Odor after Cleansing No No -Anesthetic Used 4% Lidocaine 4% Lidocaine Solution Solution WC - Nurse 2 - General Ulcer CM Notes Start: 11/29/22 08:12 Freq: Status: Active Protocol: Activity Type Activity Date Activity User E-sign Co-sign Detail Recorded Client Recorded Date Recorded By Document 11/29/22 08:32 GM Desktop 11/29/22 08:40 GM Document 12/13/22 08:33 Laptop 12/13/22 08:37 11/29/22 12/13/22 08:32 08:33 Wound Center Nurse 2 #1- ABDOMINAL POST OP -Time 08:32 08:35 -Correct Patient Yes Yes -Correct Side, Site, Position Yes Yes -Correct Procedure Yes Yes -Procedure Performed Yes Yes -Type of Procedure Debridement Debridement -Clinical Debridement Subcutaneous Subcutaneous -Tissue Removed Subcutaneous Subcutaneous -Post Debridement (cm) - Length 16 15.0 -Post Debridement (cm) - Width 4.5 4.5 -Post Debridement (cm) - Depth 1.7 0.1 -Total Square (Post) (cm) 72.0 67.50 -Area of Debridement (cm) - Length 16 15.0 -Area of Debridement (cm) - Width 4.5 4.5 -Total Square (Area) (cm) 72.0 67.50 -Tunneling Yes Yes -Tunneling Position (O'clock) 4 5 -Tunneling Distance (cm) 2.0 1.7 -Tunneling Position #2 (O'clock) 10 10 -Tunneling Distance #2 (cm) 1.5 0.9 -Undermining/Tunneling No No -Circular Undermining No No -Wound/Ulcer Outcome Not Healed Not Healed -Ulcer Cleansing Rinsed/ Rinsed/ Irrigated with Irrigated with Saline Saline -Foul Odor after Cleansing No No -Bioengineered Tissue No No -Bleeding Controlled with Pressure Pressure -Treatment Response Procedure Procedure Tolerated Well Tolerated Well -Offloading No No -Debridement - Subq, 1st 20sq cm Yes Yes -Debridement, SubQ, ea addt'l 20sq cm 3 3 or part thereof Pain Scale: 0-10 Numeric Is Patient Pain Free? Yes Yes WC - Nurse 3 - General Ulcer D/C NN Start: 11/29/22 08:12 Freq: Status: Active Protocol: Activity Type Activity Date Activity User E-sign Co-sign Detail Recorded Client Recorded Date Recorded By Document 11/29/22 08:45 [facility] Desktop 11/29/22 08:45 [facility] Document 12/13/22 08:41 [facility] Desktop 12/13/22 08:42 [facility] 11/29/22 12/13/22 08:45 08:41 Wound Care Center Nurse 3 #1- ABDOMINAL POST OP -Ulcer Cleansing Rinsed/ Rinsed/ Irrigated with Irrigated with Saline Saline -Foul Odor after Cleansing No No -Negative Pressure Wound Therapy Continue -Setting (mmHg) 150 -Negative Pressure is Continuous -Primary Dressing Applied Aquacel Extra -Other Dressing abd; per rb rn -Primary Dressing Covered/Secured with Secured with Tape -NPWT Application Charge NPWT & Debridement (nc ) -Aquacel Extra 2 Treatment Response Procedure Procedure Tolerated Well Tolerated Well Pain Scale: 0-10 Numeric Is Patient Pain Free? Yes Yes - Visit Discharge Discharge Condition Stable Stable Ambulatory Status Ambulatory Ambulatory Transportation Private Auto Private Auto Accompanied by Facility Type Home Health Assessment/Plan Assessment/Plan (1) Non-healing surgical wound: CODE(S): T81.89XA - Other complications of procedures, not elsewhere classified, initial encounter (2) S/P colectomy: CODE(S): Z90.49 - Acquired absence of other specified parts of digestive tract (3) Colostomy in place: CODE(S): Z93.3 - Colostomy status (4) Type 2 diabetes mellitus: CODE(S): E11.9 - Type 2 diabetes mellitus without complications (5) Perforation of sigmoid colon due to diverticulitis: CODE(S): K57.20 - Diverticulitis of large intestine with perforation and abscess without bleeding PLAN: Plan Debridement done as documented above, procedure was well-tolerated. Improving. VAC holiday, reevaluate next week. For now, Aquacel extra daily to twice daily depending on drainage. Cover with gauze/foam dressing. Continue adequate protein intake, Vitamin C, D and zinc. Their questions were answered and they were advised to call if they have any further questions or concerns. Patient and voiced understanding. Follow-up in 1 week or sooner if needed. This note was generated with [employer] software. It may contain incorrect words, spelling, and punctuation that were not noted in checking the note before signing.
[2022-12-20 08:37] VITALS: BP 173/93; PULSE 103; RESP 18; TEMP 36.2; BMI 35.4
--- NOTE | 2022-12-20 11:28 | PCM.WC.PN ---
History of Present Illness Date of Service: 12/20/22 Chief Complaint: Non healing surgical wound History of Wound: Mr. Duque is a 61 yo who presents here due to non healing surgical wound. History of perforated diverticulitis necessitating partial colectomy and a diverting colostomy. Hospital stay also complicated by intra-abdominal abscess. Following his hospital stay in July, he was admitted at the TCU for rehabilitation at which time he had local wound care with [facility]. Was seen by his general surgeon about a week ago following which he was started on a wound VAC on Saturday. So far tolerating wound VAC well. Progress of Wound: Had a VAC holiday for a week. Only changed the dressing once a day, no significant drainage. Some improvement noted. Objective Data Objective Data Vital Signs: Vital Signs Temp Pulse Resp BP O2 Del Method 97.1 F L 103 H 18 173/93 H Room Air 12/20/22 08:37 12/20/22 08:37 12/20/22 08:37 12/20/22 08:37 11/29/22 08:12 Oxygen Delivery Method Room Air Weight: 233 lb Body Mass Index (BMI) 35.4 Lab / Micro Data Micro: Microbiology 11/29/22 08:53 Wound - Abdominal Gram Stain - Final 11/29/22 08:53 Wound - Abdominal Wound Culture - Final Staphylococcus epidermidis Corynebacterium striatum Streptococcus constellatus pha Pseudomonas aeruginosa 11/29/22 08:53 Wound - Abdominal Anaerobic Culture - Final Bacteroides fragilis Charges/Coding Procedures Integumentary 111xxx-113xx: 16130 Hannah subq tissue 20 sq cm/< Add On Codes: 42048 Hannah subq tissue add-on (Additional Sq Cm debrided, please refer to clinical note.) Physical Exam Const alert, oriented x3 and no apparent distress General Appearance: cooperative, comfortable and well kempt HEENT normocephalic, head/scalp atraumatic and hearing grossly normal bilaterally Eyes PERRL and EOMs intact bilaterally General Eye: normal appearance of both eyes Neck full ROM and supple General: normal visual inspection Resp normal respiratory effort GI non-tender and non-distended GI Narrative: Large midline abdominal wound, colostomy. Skin Wounds: wounds noted Neuro oriented x3, CN's II-XII intact bilaterally, moves all extremities and no focal motor deficits Psych mental status grossly normal, thought process normal and cooperative Debridement Note Debridement Note Wound debrided: Abdominal Type of Debridement: Excisional debridement Anesthesia Used: 4% Lidocaine Solution Depth: Down to and including healthy tissue and in the subcutaneous layer Percentage of wound debrided: 100 Instrument Used: 7mm curette Tissue Removed: Slough and devitalized tissue Severity: Fat Layer Exposed Amount of bleeding with debridement: Mild Bleeding Controlled with: Pressure Patient tolerated procedure: Patient tolerated procedure well Post-Debridement Measurements and Additional Note: Post-Debridement Measurements/Treatment - Nurse 1 - General Ulcer Assessment Start: 11/29/22 08:12 Freq: Status: Active Protocol: JUSTIN Activity Type Activity Date Activity User E-sign Co-sign Detail Recorded Client Recorded Date Recorded By Document 11/29/22 08:12 BMF Desktop 11/29/22 08:23 BM Document 12/13/22 08:16 RB Desktop 12/13/22 08:18 RB Document 12/20/22 08:37 JF Laptop 12/20/22 08:43 JF 11/29/22 12/13/22 12/20/22 08:12 08:16 08:37 - Today's Visit Information Type of service Follow-up Visit Follow-up Visit Follow-up Visit (Physician/HEAVY RAIL TRAIN OPERATOR (Physician/HEAVY RAIL TRAIN OPERATOR (Physician/HEAVY RAIL TRAIN OPERATOR ) ) ) Arrival Mode Ambulatory Ambulatory Ambulatory Transfer Assistance None None Accompanied by Patient Identification Verified (Name & Yes Yes Yes ) Patient Requires Transmission-Based No No No Precautions Finger Stick Blood Sugar(mg/dl) (if 155 indicated): Blood Sugar Stated by Patient Height and Weight Body Mass Index (BMI) 35.4 35.4 35.4 BMI Classification Obese Obese Obese Vital Signs Temperature (97.8 F-99.1 F) 97.8 F 97.8 F 97.1 F L Temperature Source Temporal Temporal Temporal Pulse Rate (60-100) 111 H 102 H 103 H Pulse Location Monitor Monitor Monitor Respiratory Rate (12-18) 16 18 18 Respiratory rate source Observation Observation Observation Oxygen Delivery Method Room Air Blood Pressure (90/60-120/80) 181/97 H 165/95 H 173/93 H Blood Pressure Mean (mm Hg) 125 118 119 Source Monitor Monitor Monitor Position Sitting Semi-Fowlers Blood Pressure Location Left Arm Left Arm History Since Last Visit- (Skip if this is Patient's initial visit) Have you changed medications since your No No No last visit? Any new allergies or adverse reactions No No No Had a fall/change in ADL's that may No No No increase risk of falls Signs or symptoms of abuse and/or No No No neglect since last visit Have you been in the hospital since your No No No last visit? Has dressing in place as prescribed Yes Yes Yes Has compression in place as prescribed N/A No No Has offloadiing in place as prescribed N/A No No Experienced any changes in pain level or No No No management Left Footwear Regular Shoe Right Footwear Regular Shoe Pain Scale: 0-10 Numeric Is Patient Pain Free? Yes Yes Yes WC - Nurse 1 - General Ulcer Measurement Start: 11/29/22 08:12 Freq: Status: Active Protocol: Activity Type Activity Date Activity User E-sign Co-sign Detail Recorded Client Recorded Date Recorded By Document 11/29/22 08:12 BMF Desktop 11/29/22 08:23 BMF Document 12/13/22 08:16 RB Desktop 12/13/22 08:18 RB Document 12/20/22 08:37 JF Laptop 12/20/22 08:43 JF 11/29/22 12/13/22 12/20/22 08:12 08:16 08:37 Wound Center Nurse 1 #1- ABDOMINAL POST OP -Combined with other wound No No No -Current Size (cm) - Length 15.6 14.8 16 -Current Size (cm) - Width 5.2 5.1 4.1 -Current Size (cm) - Depth 1.5 1 0.1 -Total Square Cm 81.12 75.48 65.6 -Photo Taken Yes No -Epithelialization Small 1-33% -Tunneling No No No -Tunneling Position (O'clock) 10 -Tunneling Distance (cm) 0.8 -Tunneling Position #2 (O'clock) 5 -Tunneling Distance #2 (cm) 1.1 -Undermining/Tunneling Yes No Yes -Undermining/Tunneling Starts (O'clock 5 5 ) -Undermining/Tunneling Ends (O'clock) 5 5 -Maximum Distance (cm) 1.4 1.3 -Undermining/Tunneling Starts #2 (O' 11 10 clock) -Undermining/Tunneling Ends #2 (O' 11 10 clock) -Maximum Distance #2 (cm) 1.4 0.5 -Circular Undermining No No No -Exudate Amt Medium Large Medium -Exudate Type Serosanguineous Serosanguineous Serosanguineous -Wound Margin Distinct, Thickened & Distinct, Outline Rolled Under Outline Attached Attached -Granulation Amt Large (67-100%) Medium (34-66%) Large (67-100%) -Granulation Quality [place] -Slough/Fibrin No Yes Yes -Necrosis Amt None Present (0 Medium (34-66%) Medium (34-66%) %) -Necrotic Tissue Type Adherent Slough Adherent Slough -Structure Exposed N/A N/A -Texture (Matilde-wound Skin Appearance) Assessed, Assessed Assessed, Scarring Scarring -Moisture (Matilde-wound Skin Appearance) Assessed Assessed Assessed -Color (Matilde-wound Skin Appearance) Assessed Assessed Assessed -Temperature (Matilde-wound Skin No Abnormality No Abnormality No Abnormality Appearance) (Pt Warm) (Pt Warm) (Pt Warm) -Tenderness on Palpation (Matilde-wound No No No Skin Appearance) -Ulcer Cleansing Soap and Water Wound Cleanser Wound Cleanser -Foul Odor after Cleansing No No No -Anesthetic Used 4% Lidocaine 4% Lidocaine 4% Lidocaine Solution Solution Solution WC - Nurse 2 - General Ulcer CM Notes Start: 11/29/22 08:12 Freq: Status: Active Protocol: Activity Type Activity Date Activity User E-sign Co-sign Detail Recorded Client Recorded Date Recorded By Document 11/29/22 08:32 Desktop 11/29/22 08:40 Document 12/13/22 08:33 Laptop 12/13/22 08:37 Document 12/20/22 09:16 Desktop 12/20/22 09:23 11/29/22 12/13/22 12/20/22 08:32 08:33 09:16 Wound Center Nurse 2 #1- ABDOMINAL POST OP -Time 08:32 08:35 09:17 -Correct Patient Yes Yes Yes -Correct Side, Site, Position Yes Yes Yes -Correct Procedure Yes Yes Yes -Procedure Performed Yes Yes Yes -Type of Procedure Debridement Debridement Debridement -Clinical Debridement Subcutaneous Subcutaneous Subcutaneous -Tissue Removed Subcutaneous Subcutaneous Subcutaneous -Post Debridement (cm) - Length 16 15.0 16.5 -Post Debridement (cm) - Width 4.5 4.5 3.7 -Post Debridement (cm) - Depth 1.7 0.1 0.1 -Total Square (Post) (cm) 72.0 67.50 61.05 -Area of Debridement (cm) - Length 16 15.0 16.5 -Area of Debridement (cm) - Width 4.5 4.5 3.7 -Total Square (Area) (cm) 72.0 67.50 61.05 -Tunneling Yes Yes Yes -Tunneling Position (O'clock) 4 5 5 -Tunneling Distance (cm) 2.0 1.7 1.4 -Tunneling Position #2 (O'clock) 10 10 -Tunneling Distance #2 (cm) 1.5 0.9 -Undermining/Tunneling No No No -Circular Undermining No No No -Wound/Ulcer Outcome Not Healed Not Healed Not Healed -Ulcer Cleansing Rinsed/ Rinsed/ Rinsed/ Irrigated with Irrigated with Irrigated with Saline Saline Saline -Foul Odor after Cleansing No No No -Bioengineered Tissue No No No -Bleeding Controlled with Pressure Pressure Pressure -Treatment Response Procedure Procedure Procedure Tolerated Well Tolerated Well Tolerated Well -Offloading No No -Debridement - Subq, 1st 20sq cm Yes Yes Yes -Debridement, SubQ, ea addt'l 20sq cm 3 3 3 or part thereof Pain Scale: 0-10 Numeric Is Patient Pain Free? Yes Yes Yes WC - Nurse 3 - General Ulcer D/C NN Start: 11/29/22 08:12 Freq: Status: Active Protocol: Activity Type Activity Date Activity User E-sign Co-sign Detail Recorded Client Recorded Date Recorded By Document 11/29/22 08:45 [facility] Desktop 11/29/22 08:45 [facility] Document 12/13/22 08:41 [facility] Desktop 12/13/22 08:42 BMF Document 12/20/22 09:26 RB Desktop 12/20/22 09:27 RB 11/29/22 12/13/22 12/20/22 08:45 08:41 09:26 Wound Care Center Nurse 3 #1- ABDOMINAL POST OP -Ulcer Cleansing Rinsed/ Rinsed/ Rinsed/ Irrigated with Irrigated with Irrigated with Saline Saline Saline -Foul Odor after Cleansing No No -Negative Pressure Wound Therapy Continue -Setting (mmHg) 150 -Negative Pressure is Continuous -Primary Dressing Applied Aquacel Extra Aquacel Extra -Other Dressing abd; per robbie rn fluffed gauze and ABD pad -Primary Dressing Covered/Secured with Secured with Dry Gauze, Tape Secured with Tape -NPWT Application Charge NPWT & Debridement (nc ) -Aquacel Extra 2 1 Treatment Response Procedure Procedure Procedure Tolerated Well Tolerated Well Tolerated Well Pain Scale: 0-10 Numeric Is Patient Pain Free? Yes Yes Yes Teaching: Wound Center Dressing Your Wound -Person Taught Patient -Teaching Method Discussion, Demonstration -Response to teaching Verbalize understanding WC - Visit Discharge Discharge Condition Stable Stable Stable Ambulatory Status Ambulatory Ambulatory Ambulatory Transportation Private Auto Private Auto Private Auto Accompanied by Medication Reconcilliation completed & No provided to patient/care provider Clinical Summary of Care Provided Yes Notes: assisted with dressing chnage per Tresa Tapia RN Facility Type Home Health Assessment/Plan Assessment/Plan (1) Non-healing surgical wound: CODE(S): T81.89XA - Other complications of procedures, not elsewhere classified, initial encounter (2) S/P colectomy: CODE(S): Z90.49 - Acquired absence of other specified parts of digestive tract (3) Colostomy in place: CODE(S): Z93.3 - Colostomy status (4) Type 2 diabetes mellitus: CODE(S): E11.9 - Type 2 diabetes mellitus without complications (5) Perforation of sigmoid colon due to diverticulitis: CODE(S): K57.20 - Diverticulitis of large intestine with perforation and abscess without bleeding PLAN: Plan Debridement done as documented above, procedure was well-tolerated. DC Vac. Continue Aquacel extra daily to twice daily depending on drainage. Cover with gauze/foam dressing. Continue adequate protein intake, Vitamin C, D and zinc. Their questions were answered and they were advised to call if they have any further questions or concerns. Patient and voiced understanding. Follow-up in 1 week or sooner if needed. This note was generated with [employer] dictation software. It may contain incorrect words, spelling, and punctuation that were not noted in checking the note before signing.
== END 2022-12-25 23:59 | disposition home or self-care (01) ==
LOC: WC 08:30
PROVIDERS: PCP Internal Medicine; Referring Provider Internal Medicine; Visit Provider Internal Medicine
DX: T81.89XA Other complications of procedures, not elsewhere classified, initial encounter (principal); Z93.3 Colostomy status; E11.9 Type 2 diabetes mellitus without complications; Z90.49 Acquired absence of other specified parts of digestive tract; K57.20 Diverticulitis of large intestine with perforation and abscess without bleeding
CPT/HCPCS: 11042; 11045; 87070; 87075; 87077; 87186; 87205

== ENCOUNTER 2023-01-24 08:15 | Outpatient (RCR) | payer OTHER, SELFPAY ==
[2022-12-26 00:22] VITALS: BP 173/93; PULSE 103; RESP 18; TEMP 36.2; BMI 35.4
[2022-12-27 08:14] VITALS: BP 155/84; PULSE 90; RESP 18; TEMP 36.6; O2SAT 98; BMI 35.4
--- NOTE | 2022-12-27 09:18 | PCM.WC.PN ---
History of Present Illness Date of Service: 12/27/22 Chief Complaint: Non healing surgical wound History of Wound: Mr. Duque is a 61 yo who presents here due to non healing surgical wound. History of perforated diverticulitis necessitating partial colectomy and a diverting colostomy. Hospital stay also complicated by intra-abdominal abscess. Following his hospital stay in July, he was admitted at the [facility]CU for rehabilitation at which time he had local wound care with [facility]. Was seen by his general surgeon about a week ago following which he was started on a wound VAC on Saturday. So far tolerating wound VAC well. Progress of Wound: No new concerns at this time. Has done well without the wound VAC. Objective Data Objective Data Vital Signs: Vital Signs Temp Pulse Resp BP Pulse Ox 97.8 F 90 18 155/84 H 98 12/27/22 08:14 12/27/22 08:14 12/27/22 08:14 12/27/22 08:14 12/27/22 08:14 Weight: 233 lb Body Mass Index (BMI) 35.4 Charges/Coding Procedures Integumentary 111xxx-113xx: 06417 Hannah subq tissue 20 sq cm/< Add On Codes: 57181 Hannah subq tissue add-on (x2. Additional square centimeter debrided, please refer to clinical note) Physical Exam Const alert, oriented x3 and no apparent distress General Appearance: cooperative, comfortable and well kempt HEENT normocephalic, head/scalp atraumatic and hearing grossly normal bilaterally Eyes PERRL and EOMs intact bilaterally General Eye: normal appearance of both eyes Neck full ROM and supple General: normal visual inspection Resp normal respiratory effort GI non-tender and non-distended GI Narrative: Large midline abdominal wound, colostomy. Skin Wounds: wounds noted Neuro oriented x3, CN's II-XII intact bilaterally, moves all extremities and no focal motor deficits Psych mental status grossly normal, thought process normal and cooperative Debridement Note Debridement Note Wound debrided: Abdominal Type of Debridement: Excisional debridement Anesthesia Used: 4% Lidocaine Solution Depth: Down to and including healthy tissue and in the subcutaneous layer Percentage of wound debrided: 100 Instrument Used: 5mm curette Tissue Removed: Slough and devitalized tissue Severity: Fat Layer Exposed Amount of bleeding with debridement: Mild Bleeding Controlled with: Pressure Patient tolerated procedure: Patient tolerated procedure well Post-Debridement Measurements and Additional Note: Post-Debridement Measurements/Treatment - Nurse 1 - General Ulcer Assessment Start: 12/27/22 08:14 Freq: Status: Active Protocol: JUSTIN Activity Type Activity Date Activity User E-sign Co-sign Detail Recorded Client Recorded Date Recorded By Document 12/27/22 08:14 [employer] 12/27/22 08:26 12/27/22 08:14 WC - Today's Visit Information Type of service Follow-up Visit (Physician/[employer] ) Arrival Mode Ambulatory Accompanied by Patient Identification Verified (Name & Yes ) Finger Stick Blood Sugar(mg/dl) (if 142 indicated): Blood Sugar Stated by Patient Height and Weight Body Mass Index (BMI) 35.4 BMI Classification Obese Vital Signs Temperature (97.8 F-99.1 F) 97.8 F Temperature Source Temporal Pulse Rate (60-100) 90 Pulse Location Monitor Respiratory Rate (12-18) 18 Respiratory rate source Observation Pulse Oximetry 98 Blood Pressure (90/60-120/80) 155/84 H Blood Pressure Mean (mm Hg) 107 Source Monitor Position Sitting Blood Pressure Location Left Arm History Since Last Visit- (Skip if this is Patient's initial visit) Have you changed medications since your No last visit? Any new allergies or adverse reactions No Had a fall/change in ADL's that may No increase risk of falls Signs or symptoms of abuse and/or No neglect since last visit Have you been in the hospital since your No last visit? Has dressing in place as prescribed Yes Has compression in place as prescribed N/A Has offloadiing in place as prescribed N/A Experienced any changes in pain level or No management Left Footwear Regular Shoe Right Footwear Regular Shoe Pain Scale: 0-10 Numeric Is Patient Pain Free? Yes - Nurse 1 - General Ulcer Measurement Start: 12/27/22 08:14 Freq: Status: Active Protocol: Activity Type Activity Date Activity User E-sign Co-sign Detail Recorded Client Recorded Date Recorded By Document 12/27/22 08:14 KW [employer] 12/27/22 08:26 12/27/22 08:14 Wound Center Nurse 1 #1- ABDOMINAL POST OP -Current Size (cm) - Length 16.5 -Current Size (cm) - Width 4 -Current Size (cm) - Depth 0.2 -Total Square Cm 66.0 -Undermining/Tunneling Yes -Undermining/Tunneling Starts (O'clock 5 ) -Undermining/Tunneling Ends (O'clock) 6 -Maximum Distance (cm) 0.8 -Exudate Amt None Present -Wound Margin Distinct, Outline Attached -Granulation Amt Large (67-100%) -Granulation Quality Red -Necrosis Amt Small (1-33%) -Necrotic Tissue Type Adherent Slough -Texture (Matilde-wound Skin Appearance) Assessed,Rash -Moisture (Matilde-wound Skin Appearance) Assessed -Color (Matilde-wound Skin Appearance) Assessed, Erythema -Temperature (Matilde-wound Skin No Abnormality Appearance) (Pt Warm) -Ulcer Cleansing Soap and Water -Foul Odor after Cleansing No -Anesthetic Used 4% Lidocaine Solution JYOTHI - Nurse 2 - General Ulcer CM Notes Start: 12/27/22 08:14 Freq: Status: Active Protocol: Activity Type Activity Date Activity User E-sign Co-sign Detail Recorded Client Recorded Date Recorded By Document 12/27/22 08:32 Desktop 12/27/22 08:39 12/27/22 08:32 Wound Center Nurse 2 -Time 08:32 -Correct Patient Yes -Correct Side, Site, Position Yes -Correct Procedure Yes -Procedure Performed Yes -Type of Procedure Debridement -Clinical Debridement Subcutaneous -Tissue Removed Subcutaneous -Post Debridement (cm) - Length 16.0 -Post Debridement (cm) - Width 3.5 -Post Debridement (cm) - Depth 0.1 -Total Square (Post) (cm) 56.00 -Area of Debridement (cm) - Length 16 -Area of Debridement (cm) - Width 3.5 -Total Square (Area) (cm) 56.0 -Tunneling Position (O'clock) 5 -Tunneling Distance (cm) 1.0 -Wound/Ulcer Outcome Not Healed -Ulcer Cleansing Rinsed/ Irrigated with Saline -Foul Odor after Cleansing No -Bioengineered Tissue No -Bleeding Controlled with Pressure -Treatment Response Procedure Tolerated Well -Debridement - Subq, 1st 20sq cm Yes -Debridement, SubQ, ea addt'l 20sq cm 2 or part thereof Pain Scale: 0-10 Numeric Is Patient Pain Free? Yes JYOTHI - Nurse 3 - General Ulcer D/C NN Start: 12/27/22 08:14 Freq: Status: Active Protocol: Activity Type Activity Date Activity User E-sign Co-sign Detail Recorded Client Recorded Date Recorded By Document 12/27/22 08:47 Laptop 12/27/22 08:47 12/27/22 08:47 Wound Care Center Nurse 3 #1- ABDOMINAL POST OP -Ulcer Cleansing Rinsed/ Irrigated with Saline -Foul Odor after Cleansing No -Primary Dressing Applied Aquacel Extra -Other Dressing ABD pad -Primary Dressing Covered/Secured with Secured with Tape -Aquacel Extra 1 Pain Scale: 0-10 Numeric Is Patient Pain Free? Yes WC - Visit Discharge Discharge Condition Stable Ambulatory Status Ambulatory Transportation Private Auto Accompanied by Medication Reconcilliation completed & Yes provided to patient/care provider Clinical Summary of Care Provided Yes Assessment/Plan Assessment/Plan (1) Non-healing surgical wound: CODE(S): T81.89XA - Other complications of procedures, not elsewhere classified, initial encounter (2) S/P colectomy: CODE(S): Z90.49 - Acquired absence of other specified parts of digestive tract (3) Colostomy in place: CODE(S): Z93.3 - Colostomy status (4) Type 2 diabetes mellitus: CODE(S): E11.9 - Type 2 diabetes mellitus without complications (5) Perforation of sigmoid colon due to diverticulitis: CODE(S): K57.20 - Diverticulitis of large intestine with perforation and abscess without bleeding PLAN: Plan Debridement done as documented above, procedure was well-tolerated. Some improvement noted. Continue Aquacel extra daily to twice daily depending on drainage. Cover with gauze/foam dressing. Continue adequate protein intake, Vitamin C, D and zinc. Their questions were answered and they were advised to call if they have any further questions or concerns. Patient and voiced understanding. Follow-up in 2 weeks or sooner if needed. This note was generated with [employer] dictation software. It may contain incorrect words, spelling, and punctuation that were not noted in checking the note before signing.
[2023-01-10 08:10] VITALS: BP 184/93; PULSE 86; RESP 16; TEMP 36.1; BMI 35.4
--- NOTE | 2023-01-10 09:00 | PN.PCM_ITS ---
History of Present Illness Date of Service: 01/10/23 Chief Complaint: Non healing surgical wound History of Wound: Mr. Duque is a 61 yo who presents here due to non healing surgical wound. History of perforated diverticulitis necessitating partial colectomy and a diverting colostomy. Hospital stay also complicated by intra- abdominal abscess. Following his hospital stay in July, he was admitted at the TCU for rehabilitation at which time he had local wound care with [facility]. Was seen by his general surgeon about a week ago following which he was started on a wound VAC on Saturday. So far tolerating wound VAC well. Progress of Wound: No new concerns at this time. Improving. Denies significant drainage or pain. Objective Data Objective Data Vital Signs: Vital Signs Temp Pulse Resp BP Pulse Ox O2 Del Method 96.9 F L 86 16 184/93 H 98 Room Air 01/10/23 08:10 01/10/23 08:10 01/10/23 08:10 01/10/23 08:10 12/27/22 08:14 01/10/23 08:10 Oxygen Delivery Method Room Air Weight: 233 lb Body Mass Index (BMI) 35.4 Charges/Coding Procedures Integumentary 111xxx-113xx: 18400 Hannah subq tissue 20 sq cm/< Add On Codes: 87304 Hannah subq tissue add-on (Additional square centimeter debrided, please refer to clinical note.) Physical Exam Const alert, oriented x3 and no apparent distress General Appearance: cooperative, comfortable and well kempt HEENT normocephalic, head/scalp atraumatic and hearing grossly normal bilaterally Eyes PERRL and EOMs intact bilaterally General Eye: normal appearance of both eyes Neck full ROM and supple General: normal visual inspection Resp normal respiratory effort GI non-tender and non-distended GI Narrative: Large midline abdominal wound, colostomy. Skin Wounds: wounds noted Neuro oriented x3, CN's II-XII intact bilaterally, moves all extremities and no focal motor deficits Psych mental status grossly normal, thought process normal and cooperative Debridement Note Debridement Note Wound debrided: Abdominal Type of Debridement: Excisional debridement Anesthesia Used: 4% Lidocaine Solution Depth: Down to and including healthy tissue and in the subcutaneous layer Percentage of wound debrided: 100 Instrument Used: 5mm curette Tissue Removed: Slough and devitalized tissue Severity: Fat Layer Exposed Amount of bleeding with debridement: Mild Bleeding Controlled with: Pressure Patient tolerated procedure: Patient tolerated procedure well Post-Debridement Measurements and Additional Note: Post-Debridement Measurements/Treatment - Nurse 1 - General Ulcer Assessment Start: 12/27/22 08:14 Freq: Status: Active Protocol: JUSTIN Activity Type Activity Date Activity User E-sign Co-sign Detail Recorded Client Recorded Date Recorded By Document 12/27/22 08:14 KW Desktop 12/27/22 08:26 KW Document 01/10/23 08:10 BMF Desktop 01/10/23 08:15 BMF 12/27/22 01/10/23 08:14 08:10 WC - Today's Visit Information Type of service Follow-up Visit Follow-up Visit (Physician/[facility]LLMENT [facility] DEAN (Physician/[facility] ) ) Arrival Mode Ambulatory Ambulatory Transfer Assistance None Accompanied by Patient Identification Verified (Name & Yes Yes ) Patient Requires Transmission-Based No Precautions Finger Stick Blood Sugar(mg/dl) (if 142 indicated): Blood Sugar Stated by Patient Height and Weight Body Mass Index (BMI) 35.4 35.4 BMI Classification Obese Obese Vital Signs Temperature (97.8 F-99.1 F) 97.8 F 96.9 F L Temperature Source Temporal Temporal Pulse Rate (60-100) 90 86 Pulse Location Monitor Monitor Respiratory Rate (12-18) 18 16 Respiratory rate source Observation Observation Pulse Oximetry 98 Oxygen Delivery Method Room Air Blood Pressure (90/60-120/80) 155/84 H 184/93 H Blood Pressure Mean (mm Hg) 107 123 Source Monitor Monitor Position Sitting Sitting Blood Pressure Location Left Arm Left Arm History Since Last Visit- (Skip if this is Patient's initial visit) Have you changed medications since your No No last visit? Any new allergies or adverse reactions No No Had a fall/change in ADL's that may No No increase risk of falls Signs or symptoms of abuse and/or No No neglect since last visit Have you been in the hospital since your No No last visit? Has dressing in place as prescribed Yes Yes Has compression in place as prescribed N/A N/A Has offloadiing in place as prescribed N/A N/A Experienced any changes in pain level or No No management Left Footwear Regular Shoe Regular Shoe Right Footwear Regular Shoe Regular Shoe Pain Scale: 0-10 Numeric Is Patient Pain Free? Yes Yes - Nurse 1 - General Ulcer Measurement Start: 12/27/22 08:14 Freq: Status: Active Protocol: Activity Type Activity Date Activity User E-sign Co-sign Detail Recorded Client Recorded Date Recorded By Document 12/27/22 08:14 KW Desktop 12/27/22 08:26 KW Document 01/10/23 08:10 BM Desktop 01/10/23 08:15 [facility] 12/27/22 01/10/23 08:14 08:10 Wound Center Nurse 1 #1- ABDOMINAL POST OP -Combined with other wound No -Current Size (cm) - Length 16.5 15 -Current Size (cm) - Width 4 3.8 -Current Size (cm) - Depth 0.2 0.1 -Total Square Cm 66.0 57.0 -Date of Last Picture (Recall this 01/10/23 field) -Photo Taken Yes -Epithelialization Small 1-33% -Tunneling No -Undermining/Tunneling Yes No -Undermining/Tunneling Starts (O'clock 5 ) -Undermining/Tunneling Ends (O'clock) 6 -Maximum Distance (cm) 0.8 -Circular Undermining No -Exudate Amt None Present Medium -Exudate Type Serosanguineous -Wound Margin Distinct, Distinct, Outline Outline Attached Attached -Granulation Amt Large (67-100%) Large (67-100%) -Granulation Quality Red Red -Necrosis Amt Small (1-33%) Small (1-33%) -Necrotic Tissue Type Adherent Slough Adherent Slough -Texture (Matilde-wound Skin Appearance) Assessed,Rash Assessed, Scarring -Moisture (Matilde-wound Skin Appearance) Assessed Assessed -Color (Matilde-wound Skin Appearance) Assessed, Assessed Erythema -Temperature (Matilde-wound Skin No Abnormality No Abnormality Appearance) (Pt Warm) (Pt Warm) -Tenderness on Palpation (Matilde-wound No Skin Appearance) -Ulcer Cleansing Soap and Water Rinsed/ Irrigated with Saline -Foul Odor after Cleansing No No -Anesthetic Used 4% Lidocaine 4% Lidocaine Solution Solution WC - Nurse 2 - General Ulcer CM Notes Start: 12/27/22 08:14 Freq: Status: Active Protocol: Activity Type Activity Date Activity User E-sign Co-sign Detail Recorded Client Recorded Date Recorded By Document 12/27/22 08:32 Desktop 12/27/22 08:39 Document 01/10/23 08:35 GM Desktop 01/10/23 08:41 GM 12/27/22 01/10/23 08:32 08:35 Wound Center Nurse 2 #1- ABDOMINAL POST OP -Time 08:32 08:35 -Correct Patient Yes Yes -Correct Side, Site, Position Yes Yes -Correct Procedure Yes Yes -Procedure Performed Yes Yes -Type of Procedure Debridement Debridement -Clinical Debridement Subcutaneous Subcutaneous -Tissue Removed Subcutaneous Subcutaneous -Post Debridement (cm) - Length 16.0 15 -Post Debridement (cm) - Width 3.5 3.0 -Post Debridement (cm) - Depth 0.1 0.1 -Total Square (Post) (cm) 56.00 45.0 -Area of Debridement (cm) - Length 16 15 -Area of Debridement (cm) - Width 3.5 3.0 -Total Square (Area) (cm) 56.0 45.0 -Tunneling No -Tunneling Position (O'clock) 5 -Tunneling Distance (cm) 1.0 -Undermining/Tunneling No -Circular Undermining No -Wound/Ulcer Outcome Not Healed Not Healed -Ulcer Cleansing Rinsed/ Rinsed/ Irrigated with Irrigated with Saline Saline -Foul Odor after Cleansing No No -Bioengineered Tissue No No -Bleeding Controlled with Pressure Pressure -Treatment Response Procedure Procedure Tolerated Well Tolerated Well -Debridement - Subq, 1st 20sq cm Yes Yes -Debridement, SubQ, ea addt'l 20sq cm 2 2 or part thereof Pain Scale: 0-10 Numeric Is Patient Pain Free? Yes Yes - Nurse 3 - General Ulcer D/C NN Start: 12/27/22 08:14 Freq: Status: Active Protocol: Activity Type Activity Date Activity User E-sign Co-sign Detail Recorded Client Recorded Date Recorded By Document 12/27/22 08:47 Laptop 12/27/22 08:47 Document 01/10/23 08:47 DL Desktop 01/10/23 08:47 DL 12/27/22 01/10/23 08:47 08:47 Wound Care Center Nurse 3 #1- ABDOMINAL POST OP -Ulcer Cleansing Rinsed/ Rinsed/ Irrigated with Irrigated with Saline Saline -Foul Odor after Cleansing No No -Primary Dressing Applied Aquacel Extra Aquacel Extra, NonAdherent Contact Layer -Other Dressing ABD pad abd -Primary Dressing Covered/Secured with Secured with Secured with Tape Tape -Aquacel Extra 1 1 Treatment Response Procedure Tolerated Well Pain Scale: 0-10 Numeric Is Patient Pain Free? Yes Yes WC - Visit Discharge Discharge Condition Stable Stable Ambulatory Status Ambulatory Ambulatory Transportation Private Auto Private Auto Accompanied by Medication Reconcilliation completed & Yes provided to patient/care provider Clinical Summary of Care Provided Yes Assessment/Plan Assessment/Plan (1) Non-healing surgical wound: CODE(S): T81.89XA - Other complications of procedures, not elsewhere classified, initial encounter (2) S/P colectomy: CODE(S): Z90.49 - Acquired absence of other specified parts of digestive tract (3) Colostomy in place: CODE(S): Z93.3 - Colostomy status (4) Type 2 diabetes mellitus: CODE(S): E11.9 - Type 2 diabetes mellitus without complications (5) Perforation of sigmoid colon due to diverticulitis: CODE(S): K57.20 - Diverticulitis of large intestine with perforation and abscess without bleeding PLAN: Plan Debridement done as documented above, procedure was well-tolerated. Some improvement noted. Continue Aquacel extra daily to twice daily depending on drainage. Cover with Adaptic, gauze/foam dressing. Continue adequate protein intake, Vitamin C, D and zinc. Their questions were answered and they were advised to call if they have any further questions or concerns. Patient and voiced understanding. Follow-up in 2 weeks or sooner if needed. This note was generated with [employer] dictation software. It may contain incorrect words, spelling, and punctuation that were not noted in checking the note before signing.
[2023-01-24 08:14] VITALS: BP 186/93; PULSE 91; RESP 16; TEMP 36.1; BMI 35.4
--- NOTE | 2023-01-24 09:11 | PN.PCM_ITS ---
History of Present Illness Date of Service: 01/24/23 Chief Complaint: Non healing surgical wound History of Wound: Mr. Duque is a 61 yo who presents here due to non healing surgical wound. History of perforated diverticulitis necessitating partial colectomy and a diverting colostomy. Hospital stay also complicated by intra- abdominal abscess. Following his hospital stay in July, he was admitted at the TCU for rehabilitation at which time he had local wound care with [facility]. Was seen by his general surgeon about a week ago following which he was started on a wound VAC on Saturday. So far tolerating wound VAC well. Progress of Wound: No new concerns at this time. Modest improvement in 2 weeks. Denies any significant pain or drainage. Objective Data Objective Data Vital Signs: Vital Signs Temp Pulse Resp BP Pulse Ox O2 Del Method 96.9 F L 91 16 186/93 H 98 Room Air 01/24/23 08:14 01/24/23 08:14 01/24/23 08:14 01/24/23 08:14 12/27/22 08:14 01/10/23 08:10 Oxygen Delivery Method Room Air Weight: 233 lb Body Mass Index (BMI) 35.4 Charges/Coding Procedures Integumentary 111xxx-113xx: 20562 Hannah subq tissue 20 sq cm/< Add On Codes: 60774 Hannah subq tissue add-on (x2.Additional square centimeter debrided, please refer to clinical note.) Physical Exam Const alert, oriented x3 and no apparent distress General Appearance: cooperative, comfortable and well kempt HEENT normocephalic, head/scalp atraumatic and hearing grossly normal bilaterally Eyes PERRL and EOMs intact bilaterally General Eye: normal appearance of both eyes Neck full ROM and supple General: normal visual inspection Resp normal respiratory effort GI non-tender and non-distended GI Narrative: Large midline abdominal wound, colostomy. Skin Wounds: wounds noted Neuro oriented x3, CN's II-XII intact bilaterally, moves all extremities and no focal motor deficits Psych mental status grossly normal, thought process normal and cooperative Debridement Note Debridement Note Post-Debridement Measurements and Additional Note: Post-Debridement Measurements/Treatment JYOTHI - Nurse 1 - General Ulcer Assessment Start: 12/27/22 08:14 Freq: Status: Active Protocol: JUSTIN Activity Type Activity Date Activity User E-sign Co-sign Detail Recorded Client Recorded Date Recorded By Document 12/27/22 08:14 KW Desktop 12/27/22 08:26 KW Document 01/10/23 08:10 BMF Desktop 01/10/23 08:15 BMF Document 01/24/23 08:14 JF Laptop 01/24/23 08:16 JF 12/27/22 01/10/23 01/24/23 08:14 08:10 08:14 WC - Today's Visit Information Type of service Follow-up Visit Follow-up Visit Follow-up Visit (Physician/[facility] [employer] (Physician/[facility]QU[facility]MENT (Physician/[facility]QUIPMENT ) ) ) Arrival Mode Ambulatory Ambulatory Ambulatory Transfer Assistance None Accompanied by Patient Identification Verified (Name & Yes Yes Yes ) Patient Requires Transmission-Based No No Precautions Finger Stick Blood Sugar(mg/dl) (if 142 indicated): Blood Sugar Stated by Patient Height and Weight Body Mass Index (BMI) 35.4 35.4 35.4 BMI Classification Obese Obese Obese Vital Signs Temperature (97.8 F-99.1 F) 97.8 F 96.9 F L 96.9 F L Temperature Source Temporal Temporal Temporal Pulse Rate (60-100) 90 86 91 Pulse Location Monitor Monitor Monitor Respiratory Rate (12-18) 18 16 16 Respiratory rate source Observation Observation Observation Pulse Oximetry 98 Oxygen Delivery Method Room Air Blood Pressure (90/60-120/80) 155/84 H 184/93 H 186/93 H Blood Pressure Mean (mm Hg) 107 123 124 Source Monitor Monitor Monitor Position Sitting Sitting Sitting Blood Pressure Location Left Arm Left Arm Left Arm History Since Last Visit- (Skip if this is Patient's initial visit) Have you changed medications since your No No No last visit? Any new allergies or adverse reactions No No No Had a fall/change in ADL's that may No No No increase risk of falls Signs or symptoms of abuse and/or No No No neglect since last visit Have you been in the hospital since your No No last visit? Has dressing in place as prescribed Yes Yes Yes Has compression in place as prescribed N/A N/A N/A Has offloadiing in place as prescribed N/A N/A N/A Experienced any changes in pain level or No No No management Left Footwear Regular Shoe Regular Shoe Regular Shoe Right Footwear Regular Shoe Regular Shoe Regular Shoe Pain Scale: 0-10 Numeric Is Patient Pain Free? Yes Yes Yes WC - Nurse 1 - General Ulcer Measurement Start: 12/27/22 08:14 Freq: Status: Active Protocol: Activity Type Activity Date Activity User E-sign Co-sign Detail Recorded Client Recorded Date Recorded By Document 12/27/22 08:14 KW Desktop 12/27/22 08:26 KW Document 01/10/23 08:10 BMF Desktop 01/10/23 08:15 BMF Document 01/24/23 08:14 JF Laptop 01/24/23 08:16 JF 12/27/22 01/10/23 01/24/23 08:14 08:10 08:14 Wound Center Nurse 1 #1- ABDOMINAL POST OP -Combined with other wound No No -Current Size (cm) - Length 16.5 15 14.8 -Current Size (cm) - Width 4 3.8 3.5 -Current Size (cm) - Depth 0.2 0.1 0.1 -Total Square Cm 66.0 57.0 51.80 -Date of Last Picture (Recall this 01/10/23 field) -Photo Taken Yes No -Epithelialization Small 1-33% Medium 34-66% -Tunneling No No -Undermining/Tunneling Yes No No -Undermining/Tunneling Starts (O'clock 5 ) -Undermining/Tunneling Ends (O'clock) 6 -Maximum Distance (cm) 0.8 -Circular Undermining No No -Exudate Amt None Present Medium Large -Exudate Type Serosanguineous Serosanguineous -Wound Margin Distinct, Distinct, Flat & Intact Outline Outline Attached Attached -Granulation Amt Large (67-100%) Large (67-100%) Large (67-100%) -Granulation Quality Red Red Red -Slough/Fibrin Yes -Necrosis Amt Small (1-33%) Small (1-33%) Small (1-33%) -Necrotic Tissue Type Adherent Slough Adherent Slough Adherent Slough -Structure Exposed N/A -Texture (Matilde-wound Skin Appearance) Assessed,Rash Assessed, Assessed Scarring -Moisture (Matilde-wound Skin Appearance) Assessed Assessed Assessed,Dry/ Scaly -Color (Matilde-wound Skin Appearance) Assessed, Assessed Assessed Erythema -Temperature (Matilde-wound Skin No Abnormality No Abnormality No Abnormality Appearance) (Pt Warm) (Pt Warm) (Pt Warm) -Tenderness on Palpation (Matilde-wound No No Skin Appearance) -Ulcer Cleansing Soap and Water Rinsed/ Wound Cleanser Irrigated with Saline -Foul Odor after Cleansing No No No -Anesthetic Used 4% Lidocaine 4% Lidocaine 4% Lidocaine Solution Solution Solution Lower Limb Edema Present NA WC - Nurse 2 - General Ulcer CM Notes Start: 12/27/22 08:14 Freq: Status: Active Protocol: Activity Type Activity Date Activity User E-sign Co-sign Detail Recorded Client Recorded Date Recorded By Document 12/27/22 08:32 GM Desktop 12/27/22 08:39 GM Document 01/10/23 08:35 GM Desktop 01/10/23 08:41 GM Document 01/24/23 08:31 GM Desktop 01/24/23 08:37 GM 12/27/22 01/10/23 01/24/23 08:32 08:35 08:31 Wound Center Nurse 2 #1- ABDOMINAL POST OP -Time 08:32 08:35 08:31 -Correct Patient Yes Yes Yes -Correct Side, Site, Position Yes Yes Yes -Correct Procedure Yes Yes Yes -Procedure Performed Yes Yes Yes -Type of Procedure Debridement Debridement Debridement -Clinical Debridement Subcutaneous Subcutaneous Subcutaneous -Tissue Removed Subcutaneous Subcutaneous Subcutaneous -Post Debridement (cm) - Length 16.0 15 15 -Post Debridement (cm) - Width 3.5 3.0 2.5 -Post Debridement (cm) - Depth 0.1 0.1 0.1 -Total Square (Post) (cm) 56.00 45.0 37.5 -Area of Debridement (cm) - Length 16 15 15 -Area of Debridement (cm) - Width 3.5 3.0 2.5 -Total Square (Area) (cm) 56.0 45.0 37.5 -Tunneling No No -Tunneling Position (O'clock) 5 -Tunneling Distance (cm) 1.0 -Undermining/Tunneling No No -Circular Undermining No No -Wound/Ulcer Outcome Not Healed Not Healed Not Healed -Ulcer Cleansing Rinsed/ Rinsed/ Rinsed/ Irrigated with Irrigated with Irrigated with Saline Saline Saline -Foul Odor after Cleansing No No No -Bioengineered Tissue No No No -Bleeding Controlled with Pressure Pressure Pressure -Treatment Response Procedure Procedure Procedure Tolerated Well Tolerated Well Tolerated Well -Debridement - Subq, 1st 20sq cm Yes Yes Yes -Debridement, SubQ, ea addt'l 20sq cm 2 2 2 or part thereof Pain Scale: 0-10 Numeric Is Patient Pain Free? Yes Yes Yes - Nurse 3 - General Ulcer D/C NN Start: 12/27/22 08:14 Freq: Status: Active Protocol: Activity Type Activity Date Activity User E-sign Co-sign Detail Recorded Client Recorded Date Recorded By Document 12/27/22 08:47 Laptop 12/27/22 08:47 Document 01/10/23 08:47 DL Desktop 01/10/23 08:47 DL Document 01/24/23 08:43 Laptop 01/24/23 08:43 12/27/22 01/10/23 01/24/23 08:47 08:47 08:43 Wound Care Center Nurse 3 #1- ABDOMINAL POST OP -Ulcer Cleansing Rinsed/ Rinsed/ Rinsed/ Irrigated with Irrigated with Irrigated with Saline Saline Saline -Foul Odor after Cleansing No No No -Primary Dressing Applied Aquacel Extra Aquacel Extra, Fibracol Plus NonAdherent 4x4,NonAdherent Contact Layer Contact Layer -Other Dressing ABD pad abd -Primary Dressing Covered/Secured with Secured with Secured with Secured with Tape Tape Tape -Other Covering ABD pad -Aquacel Extra 1 1 -Fibracol Plus 4x4 2 Treatment Response Procedure Tolerated Well Pain Scale: 0-10 Numeric Is Patient Pain Free? Yes Yes Yes - Visit Discharge Discharge Condition Stable Stable Stable Ambulatory Status Ambulatory Ambulatory Ambulatory Transportation Private Auto Private Auto Private Auto Accompanied by Medication Reconcilliation completed & Yes Yes provided to patient/care provider Clinical Summary of Care Provided Yes Yes Assessment/Plan Assessment/Plan (1) Non-healing surgical wound: CODE(S): T81.89XA - Other complications of procedures, not elsewhere classified, initial encounter (2) S/P colectomy: CODE(S): Z90.49 - Acquired absence of other specified parts of digestive tract (3) Colostomy in place: CODE(S): Z93.3 - Colostomy status (4) Type 2 diabetes mellitus: CODE(S): E11.9 - Type 2 diabetes mellitus without complications (5) Perforation of sigmoid colon due to diverticulitis: CODE(S): K57.20 - Diverticulitis of large intestine with perforation and abscess without bleeding PLAN: Plan Debridement done as documented above, procedure was well-tolerated. Minimal improvement. Switch to Fibracol daily, cover with Adaptic, gauze/foam dressing. Continue adequate protein intake, Vitamin C, D and zinc. Their questions were answered and they were advised to call if they have any further questions or concerns. Patient and voiced understanding. Follow-up in 2 weeks or sooner if needed. This note was generated with [employer] dictation software. It may contain incorrect words, spelling, and punctuation that were not noted in checking the note before signing.
== END 2023-01-24 23:59 | disposition home or self-care (01) ==
LOC: WC 08:15
PROVIDERS: PCP Internal Medicine; Referring Provider Internal Medicine; Visit Provider Internal Medicine
DX: T81.89XA Other complications of procedures, not elsewhere classified, initial encounter (principal); Z93.3 Colostomy status; E11.9 Type 2 diabetes mellitus without complications; K57.20 Diverticulitis of large intestine with perforation and abscess without bleeding; Z90.49 Acquired absence of other specified parts of digestive tract
CPT/HCPCS: 11042; 11045

== ENCOUNTER 2023-02-21 08:15 | Outpatient (RCR) | payer OTHER, SELFPAY ==
[2023-01-25 00:12] VITALS: BP 186/93; PULSE 91; RESP 16; TEMP 36.1; O2SAT 98; BMI 35.4
[2023-02-07 08:21] VITALS: BP 188/96; PULSE 88; RESP 16; TEMP 36.3; BMI 35.4
--- NOTE | 2023-02-07 09:22 | PN.PCM_ITS ---
History of Present Illness Date of Service: 02/07/23 Chief Complaint: Non healing surgical wound History of Wound: Mr. Duque is a 61 yo who presents here due to non healing surgical wound. History of perforated diverticulitis necessitating partial colectomy and a diverting colostomy. Hospital stay also complicated by intra- abdominal abscess. Following his hospital stay in July, he was admitted at the TCU for rehabilitation at which time he had local wound care with [facility]. Was seen by his general surgeon about a week ago following which he was started on a wound VAC on Saturday. So far tolerating wound VAC well. Progress of Wound: No new concerns at this time. Improving. Objective Data Objective Data Vital Signs: Vital Signs Temp Pulse Resp BP Pulse Ox O2 Del Method 97.3 F L 88 16 188/96 H 98 Room Air 02/07/23 08:21 02/07/23 08:21 02/07/23 08:21 02/07/23 08:21 01/25/23 00:12 02/07/23 08:21 Oxygen Delivery Method Room Air Weight: 233 lb Body Mass Index (BMI) 35.4 Charges/Coding Procedures Integumentary 111xxx-113xx: 67099 Hannah subq tissue 20 sq cm/< Add On Codes: 40552 Hannah subq tissue add-on (x1 .Additional square centimeter debrided, please refer to clinical note.) Physical Exam Const alert, oriented x3 and no apparent distress General Appearance: cooperative, comfortable and well kempt HEENT normocephalic, head/scalp atraumatic and hearing grossly normal bilaterally Eyes PERRL and EOMs intact bilaterally General Eye: normal appearance of both eyes Neck full ROM and supple General: normal visual inspection Resp normal respiratory effort GI non-tender and non-distended GI Narrative: Large midline abdominal wound, colostomy. Skin Wounds: wounds noted Neuro oriented x3, CN's II-XII intact bilaterally, moves all extremities and no focal motor deficits Psych mental status grossly normal, thought process normal and cooperative Debridement Note Debridement Note Wound debrided: Abdominal Type of Debridement: Excisional debridement Anesthesia Used: 4% Lidocaine Solution Depth: Down to and including healthy tissue and in the subcutaneous layer Percentage of wound debrided: 100 Instrument Used: 7mm curette Tissue Removed: Slough and devitalized tissue Severity: Fat Layer Exposed Amount of bleeding with debridement: Mild Bleeding Controlled with: Pressure Patient tolerated procedure: Patient tolerated procedure well Post-Debridement Measurements and Additional Note: Post-Debridement Measurements/Treatment - Nurse 1 - General Ulcer Assessment Start: 02/07/23 08:21 Freq: Status: Active Protocol: JUSTIN Activity Type Activity Date Activity User E-sign Co-sign Detail Recorded Client Recorded Date Recorded By Document 02/07/23 08:21 [facility] Desktop 02/07/23 08:28 [facility] 02/07/23 08:21 WC - Today's Visit Information Type of service Follow-up Visit (Physician/BEHAVIORAL HEALTH TECH ) Arrival Mode Ambulatory Transfer Assistance None Accompanied by Patient Identification Verified (Name & Yes ) Patient Requires Transmission-Based No Precautions Height and Weight Body Mass Index (BMI) 35.4 BMI Classification Obese Vital Signs Temperature (97.8 F-99.1 F) 97.3 F L Temperature Source Temporal Pulse Rate (60-100) 88 Pulse Location Monitor Respiratory Rate (12-18) 16 Respiratory rate source Observation Oxygen Delivery Method Room Air Blood Pressure (90/60-120/80) 188/96 H Blood Pressure Mean (mm Hg) 126 Source Monitor Position Sitting Blood Pressure Location Left Arm History Since Last Visit- (Skip if this is Patient's initial visit) Have you changed medications since your No last visit? Any new allergies or adverse reactions No Had a fall/change in ADL's that may No increase risk of falls Signs or symptoms of abuse and/or No neglect since last visit Have you been in the hospital since your No last visit? Has dressing in place as prescribed Yes Has compression in place as prescribed N/A Has offloadiing in place as prescribed N/A Experienced any changes in pain level or No management Left Footwear Regular Shoe Right Footwear Regular Shoe Pain Scale: 0-10 Numeric Is Patient Pain Free? Yes - Nurse 1 - General Ulcer Measurement Start: 02/07/23 08:21 Freq: Status: Active Protocol: Activity Type Activity Date Activity User E-sign Co-sign Detail Recorded Client Recorded Date Recorded By Document 02/07/23 08:21 [facility] Desktop 02/07/23 08:28 [facility] 02/07/23 08:21 Wound Center Nurse 1 #1- ABDOMINAL POST OP -Current Size (cm) - Length 15.4 -Current Size (cm) - Width 3.2 -Current Size (cm) - Depth 0.1 -Total Square Cm 49.28 -Date of Last Picture (Recall this 02/07/23 field) -Photo Taken Yes -Epithelialization Small 1-33% -Tunneling No -Undermining/Tunneling No -Circular Undermining No -Exudate Amt Large -Exudate Type Serosanguineous -Wound Margin Distinct, Outline Attached -Granulation Amt Large (67-100%) -Granulation Quality Red -Slough/Fibrin Yes -Necrosis Amt Small (1-33%) -Necrotic Tissue Type Adherent Slough -Texture (Matilde-wound Skin Appearance) Assessed, Scarring -Moisture (Matilde-wound Skin Appearance) Assessed,Dry/ Scaly -Color (Matilde-wound Skin Appearance) Assessed -Temperature (Matilde-wound Skin No Abnormality Appearance) (Pt Warm) -Tenderness on Palpation (Matilde-wound No Skin Appearance) -Ulcer Cleansing Soap and Water -Foul Odor after Cleansing No -Anesthetic Used 4% Lidocaine Solution WC - Nurse 2 - General Ulcer CM Notes Start: 02/07/23 08:21 Freq: Status: Active Protocol: Activity Type Activity Date Activity User E-sign Co-sign Detail Recorded Client Recorded Date Recorded By Document 02/07/23 08:36 Laptop 02/07/23 08:43 02/07/23 08:36 Wound Center Nurse 2 -Time 08:37 -Correct Patient Yes -Correct Side, Site, Position Yes -Correct Procedure Yes -Procedure Performed Yes -Type of Procedure Debridement -Clinical Debridement Subcutaneous -Tissue Removed Subcutaneous -Post Debridement (cm) - Length 14 -Post Debridement (cm) - Width 2 -Post Debridement (cm) - Depth 0.1 -Total Square (Post) (cm) 28 -Area of Debridement (cm) - Length 14 -Area of Debridement (cm) - Width 2 -Total Square (Area) (cm) 28 -Tunneling No -Undermining/Tunneling No -Circular Undermining No -Wound/Ulcer Outcome Not Healed -Ulcer Cleansing Rinsed/ Irrigated with Saline -Foul Odor after Cleansing No -Bioengineered Tissue No -Bleeding Controlled with Pressure -Treatment Response Procedure Tolerated Well -Offloading No -Debridement - Subq, 1st 20sq cm Yes -Debridement, SubQ, ea addt'l 20sq cm 1 or part thereof Pain Scale: 0-10 Numeric Is Patient Pain Free? Yes WC - Nurse 3 - General Ulcer D/C NN Start: 02/07/23 08:21 Freq: Status: Active Protocol: Activity Type Activity Date Activity User E-sign Co-sign Detail Recorded Client Recorded Date Recorded By Document 02/07/23 08:51 [facility] Desktop 02/07/23 08:52 [facility] 02/07/23 08:51 Wound Care Center Nurse 3 #1- ABDOMINAL POST OP -Ulcer Cleansing Soap and Water -Foul Odor after Cleansing No -Primary Dressing Applied Fibracol Plus 4x4 -Other Dressing abd -Primary Dressing Covered/Secured with Secured with Tape -Fibracol Plus 4x4 1 Treatment Response Procedure Tolerated Well Pain Scale: 0-10 Numeric Is Patient Pain Free? Yes WC - Visit Discharge Discharge Condition Stable Ambulatory Status Wheelchair Transportation Private Auto Accompanied by Assessment/Plan Assessment/Plan (1) Non-healing surgical wound: CODE(S): T81.89XA - Other complications of procedures, not elsewhere classified, initial encounter (2) S/P colectomy: CODE(S): Z90.49 - Acquired absence of other specified parts of digestive tract (3) Colostomy in place: CODE(S): Z93.3 - Colostomy status (4) Type 2 diabetes mellitus: CODE(S): E11.9 - Type 2 diabetes mellitus without complications (5) Perforation of sigmoid colon due to diverticulitis: CODE(S): K57.20 - Diverticulitis of large intestine with perforation and abscess without bleeding PLAN: Plan Debridement done as documented above, procedure was well-tolerated. Improving, no new concerns reported. Continue Fibracol daily, cover with Adaptic, gauze/foam dressing. Continue adequate protein intake, Vitamin C, D and zinc. Their questions were answered and they were advised to call if they have any further questions or concerns. Patient and voiced understanding. Follow- up in 2 weeks or sooner if needed. This note was generated with [employer] software. It may contain incorrect words, spelling, and punctuation that were not noted in checking the note before signing.
[2023-02-21 08:16] VITALS: BP 165/90; PULSE 89; RESP 16; TEMP 36.4; BMI 35.4
--- NOTE | 2023-02-21 08:56 | PCM.WC.PN ---
History of Present Illness Date of Service: 02/21/23 Chief Complaint: Non healing surgical wound History of Wound: Mr. Duque is a 61 yo who presents here due to non healing surgical wound. History of perforated diverticulitis necessitating partial colectomy and a diverting colostomy. Hospital stay also complicated by intra-abdominal abscess. Following his hospital stay in July, he was admitted at the TCU for rehabilitation at which time he had local wound care with [facility]. Was seen by his general surgeon about a week ago following which he was started on a wound VAC on Saturday. So far tolerating wound VAC well. Progress of Wound: No new concerns or significant change since last visit. Objective Data Objective Data Vital Signs: Vital Signs Temp Pulse Resp BP Pulse Ox O2 Del Method 97.6 F L 89 16 165/90 H 98 Room Air 02/21/23 08:16 02/21/23 08:16 02/21/23 08:16 02/21/23 08:16 01/25/23 00:12 02/21/23 08:16 Oxygen Delivery Method Room Air Weight: 233 lb Body Mass Index (BMI) 35.4 Charges/Coding Procedures Integumentary 111xxx-113xx: 05854 Hannah subq tissue 20 sq cm/< Add On Codes: 51979 Hannah subq tissue add-on (x1 .Additional square centimeter debrided, please refer to clinical note.) Physical Exam Const alert, oriented x3 and no apparent distress General Appearance: cooperative, comfortable and well kempt HEENT normocephalic, head/scalp atraumatic and hearing grossly normal bilaterally Eyes PERRL and EOMs intact bilaterally General Eye: normal appearance of both eyes Neck full ROM and supple General: normal visual inspection Resp normal respiratory effort GI non-tender and non-distended GI Narrative: Large midline abdominal wound, colostomy. Skin Wounds: wounds noted Neuro oriented x3, CN's II-XII intact bilaterally, moves all extremities and no focal motor deficits Psych mental status grossly normal, thought process normal and cooperative Debridement Note Debridement Note Wound debrided: Abdominal Type of Debridement: Excisional debridement Anesthesia Used: 4% Lidocaine Solution Depth: Down to and including healthy tissue and in the subcutaneous layer Percentage of wound debrided: 100 Instrument Used: 7mm curette Tissue Removed: Slough and devitalized tissue Severity: Fat Layer Exposed Amount of bleeding with debridement: Mild Bleeding Controlled with: Pressure Patient tolerated procedure: Patient tolerated procedure well Post-Debridement Measurements and Additional Note: Post-Debridement Measurements/Treatment - Nurse 1 - General Ulcer Assessment Start: 02/07/23 08:21 Freq: Status: Active Protocol: JUSTIN Activity Type Activity Date Activity User E-sign Co-sign Detail Recorded Client Recorded Date Recorded By Document 02/07/23 08:21 [facility] Desktop 02/07/23 08:28 BM Document 02/21/23 08:16 [facility] Desktop 02/21/23 08:21 BMF 02/07/23 02/21/23 08:21 08:16 WC - Today's Visit Information Type of service Follow-up Visit Follow-up Visit (Physician/[employer]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 (Physician/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 ) ) Arrival Mode Ambulatory Ambulatory Transfer Assistance None None Accompanied by Patient Identification Verified (Name & Yes Yes ) Patient Requires Transmission-Based No No Precautions Height and Weight Body Mass Index (BMI) 35.4 35.4 BMI Classification Obese Obese Vital Signs Temperature (97.8 F-99.1 F) 97.3 F L 97.6 F L Temperature Source Temporal Temporal Pulse Rate (60-100) 88 89 Pulse Location Monitor Monitor Respiratory Rate (12-18) 16 16 Respiratory rate source Observation Observation Oxygen Delivery Method Room Air Room Air Blood Pressure (90/60-120/80) 188/96 H 165/90 H Blood Pressure Mean (mm Hg) 126 115 Source Monitor Monitor Position Sitting Sitting Blood Pressure Location Left Arm Right Arm History Since Last Visit- (Skip if this is Patient's initial visit) Have you changed medications since your No No last visit? Any new allergies or adverse reactions No No Had a fall/change in ADL's that may No No increase risk of falls Signs or symptoms of abuse and/or No No neglect since last visit Have you been in the hospital since your No No last visit? Has dressing in place as prescribed Yes Yes Has compression in place as prescribed N/A N/A Has offloadiing in place as prescribed N/A N/A Experienced any changes in pain level or No No management Left Footwear Regular Shoe Regular Shoe Right Footwear Regular Shoe Regular Shoe Pain Scale: 0-10 Numeric Is Patient Pain Free? Yes Yes - Nurse 1 - General Ulcer Measurement Start: 02/07/23 08:21 Freq: Status: Active Protocol: Activity Type Activity Date Activity User E-sign Co-sign Detail Recorded Client Recorded Date Recorded By Document 02/07/23 08:21 [facility] Desktop 02/07/23 08:28 [facility] Document 02/21/23 08:16 [facility] Desktop 02/21/23 08:21 [facility] 02/07/23 02/21/23 08:21 08:16 Wound Center Nurse 1 #1- ABDOMINAL POST OP -Combined with other wound No -Current Size (cm) - Length 15.4 14.1 -Current Size (cm) - Width 3.2 2.4 -Current Size (cm) - Depth 0.1 0.1 -Total Square Cm 49.28 33.84 -Date of Last Picture (Recall this 02/07/23 02/21/23 field) -Photo Taken Yes Yes -Epithelialization Small 1-33% None Present -Tunneling No No -Undermining/Tunneling No No -Circular Undermining No No -Exudate Amt Large Medium -Exudate Type Serosanguineous Serosanguineous -Wound Margin Distinct, Distinct, Outline Outline Attached Attached -Granulation Amt Large (67-100%) Large (67-100%) -Granulation Quality Red Red -Slough/Fibrin Yes Yes -Necrosis Amt Small (1-33%) Small (1-33%) -Necrotic Tissue Type Adherent Slough Adherent Slough -Texture (Matilde-wound Skin Appearance) Assessed, Assessed, Scarring Scarring -Moisture (Matilde-wound Skin Appearance) Assessed,Dry/ Assessed,Dry/ Scaly Scaly -Color (Matilde-wound Skin Appearance) Assessed Assessed -Temperature (Matilde-wound Skin No Abnormality No Abnormality Appearance) (Pt Warm) (Pt Warm) -Tenderness on Palpation (Matilde-wound No No Skin Appearance) -Ulcer Cleansing Soap and Water Rinsed/ Irrigated with Saline -Foul Odor after Cleansing No No -Anesthetic Used 4% Lidocaine 4% Lidocaine Solution Solution WC - Nurse 2 - General Ulcer CM Notes Start: 02/07/23 08:21 Freq: Status: Active Protocol: Activity Type Activity Date Activity User E-sign Co-sign Detail Recorded Client Recorded Date Recorded By Document 02/07/23 08:36 Laptop 02/07/23 08:43 Document 02/21/23 08:27 GM Desktop 02/21/23 08:37 GM Edit Result 02/21/23 08:27 GM (1) [id number] 02/21/23 08:40 GM (1) #1- ABDOMINAL POST OP - Debridement, SubQ, ea addt'l 20sq cm => 9 or part thereof 02/07/23 02/21/23 08:36 08:27 Wound Center Nurse 2 #1- ABDOMINAL POST OP -Time 08:37 08:27 -Correct Patient Yes Yes -Correct Side, Site, Position Yes Yes -Correct Procedure Yes Yes -Procedure Performed Yes Yes -Type of Procedure Debridement Debridement -Clinical Debridement Subcutaneous Subcutaneous -Tissue Removed Subcutaneous Subcutaneous -Post Debridement (cm) - Length 14 14 -Post Debridement (cm) - Width 2 2 -Post Debridement (cm) - Depth 0.1 0.1 -Total Square (Post) (cm) 28 28 -Area of Debridement (cm) - Length 14 14 -Area of Debridement (cm) - Width 2 14.2 -Total Square (Area) (cm) 28 198.8 -Tunneling No -Undermining/Tunneling No -Circular Undermining No -Wound/Ulcer Outcome Not Healed Not Healed -Ulcer Cleansing Rinsed/ Irrigated with Saline -Foul Odor after Cleansing No -Bioengineered Tissue No -Bleeding Controlled with Pressure Pressure -Treatment Response Procedure Procedure Tolerated Well Tolerated Well -Offloading No -Debridement - Subq, 1st 20sq cm Yes Yes -Debridement, SubQ, ea addt'l 20sq cm 1 9 or part thereof Pain Scale: 0-10 Numeric Is Patient Pain Free? Yes Yes WC - Nurse 3 - General Ulcer D/C NN Start: 02/07/23 08:21 Freq: Status: Active Protocol: Activity Type Activity Date Activity User E-sign Co-sign Detail Recorded Client Recorded Date Recorded By Document 02/07/23 08:51 [facility] Desktop 02/07/23 08:52 [facility] Document 02/21/23 08:44 [facility] Desktop 02/21/23 08:46 [facility] 02/07/23 02/21/23 08:51 08:44 Wound Care Center Nurse 3 #1- ABDOMINAL POST OP -Ulcer Cleansing Soap and Water Rinsed/ Irrigated with Saline -Foul Odor after Cleansing No No -Primary Dressing Applied Fibracol Plus Fibracol Plus 4x4 4x4,NonAdherent Contact Layer -Other Dressing abd -Primary Dressing Covered/Secured with Secured with Dry Gauze, Tape Secured with Tape -Fibracol Plus 4x4 1 1 Treatment Response Procedure Procedure Tolerated Well Tolerated Well Pain Scale: 0-10 Numeric Is Patient Pain Free? Yes Yes WC - Visit Discharge Discharge Condition Stable Stable Ambulatory Status Wheelchair Ambulatory Transportation Private Auto Private Auto Accompanied by Assessment/Plan Assessment/Plan (1) Non-healing surgical wound: CODE(S): T81.89XA - Other complications of procedures, not elsewhere classified, initial encounter (2) S/P colectomy: CODE(S): Z90.49 - Acquired absence of other specified parts of digestive tract (3) Colostomy in place: CODE(S): Z93.3 - Colostomy status (4) Type 2 diabetes mellitus: CODE(S): E11.9 - Type 2 diabetes mellitus without complications (5) Perforation of sigmoid colon due to diverticulitis: CODE(S): K57.20 - Diverticulitis of large intestine with perforation and abscess without bleeding PLAN: Plan Debridement done as documented above, procedure was well-tolerated. No significant change in 2 weeks. He denies any concerning drainage or pain. Cultures taken. Continue Fibracol daily, cover with Adaptic, gauze/foam dressing. Continue adequate protein intake, Vitamin C, D and zinc. Their questions were answered and they were advised to call if they have any further questions or concerns. Patient and voiced understanding. Follow-up in 1 week or sooner if needed. This note was generated with [employer] dictation software. It may contain incorrect words, spelling, and punctuation that were not noted in checking the note before signing.
== END 2023-02-24 23:59 | disposition home or self-care (01) ==
LOC: WC 08:15
PROVIDERS: PCP Internal Medicine; Referring Provider Internal Medicine; Visit Provider Internal Medicine
DX: T81.89XA Other complications of procedures, not elsewhere classified, initial encounter (principal); Z93.3 Colostomy status; E11.9 Type 2 diabetes mellitus without complications; K57.20 Diverticulitis of large intestine with perforation and abscess without bleeding; Z90.49 Acquired absence of other specified parts of digestive tract
CPT/HCPCS: 11042; 11045; 87070; 87077; 87186; 87205

== ENCOUNTER 2023-03-14 08:45 | Outpatient (RCR) | payer OTHER, SELFPAY ==
[2023-02-25 00:12] VITALS: BP 165/90; PULSE 89; RESP 16; TEMP 36.4; O2SAT 98; BMI 35.4
[2023-02-28 08:50] VITALS: BP 171/87; PULSE 96; RESP 18; TEMP 36.4; BMI 35.4
--- NOTE | 2023-02-28 10:37 | PN.PCM_ITS ---
History of Present Illness Date of Service: 02/28/23 Chief Complaint: Non healing surgical wound History of Wound: Mr. Duque is a 61 yo who presents here due to non healing surgical wound. History of perforated diverticulitis necessitating partial colectomy and a diverting colostomy. Hospital stay also complicated by intra- abdominal abscess. Following his hospital stay in July, he was admitted at the TCU for rehabilitation at which time he had local wound care with [facility]. Was seen by his general surgeon about a week ago following which he was started on a wound VAC on Saturday. So far tolerating wound VAC well. Progress of Wound: No new concerns at this time. Denies significant pain or drainage. Culture with some growth. Objective Data Objective Data Vital Signs: Vital Signs Temp Pulse Resp BP Pulse Ox 97.5 F L 96 18 171/87 H 98 02/28/23 08:50 02/28/23 08:50 02/28/23 08:50 02/28/23 08:50 02/25/23 00:12 Weight: 233 lb Body Mass Index (BMI) 35.4 Charges/Coding Procedures Integumentary 111xxx-113xx: 07331 Hannah subq tissue 20 sq cm/< Physical Exam Const alert, oriented x3 and no apparent distress General Appearance: cooperative, comfortable and well kempt HEENT normocephalic, head/scalp atraumatic and hearing grossly normal bilaterally Eyes PERRL and EOMs intact bilaterally General Eye: normal appearance of both eyes Neck full ROM and supple General: normal visual inspection Resp normal respiratory effort GI non-tender and non-distended GI Narrative: Large midline abdominal wound, colostomy. Skin Wounds: wounds noted Neuro oriented x3, CN's II-XII intact bilaterally, moves all extremities and no focal motor deficits Psych mental status grossly normal, thought process normal and cooperative Debridement Note Debridement Note Wound debrided: Abdominal Type of Debridement: Excisional debridement Anesthesia Used: 4% Lidocaine Solution Depth: Down to and including healthy tissue and in the subcutaneous layer Percentage of wound debrided: 100 Instrument Used: 7mm curette Tissue Removed: Slough and devitalized tissue Severity: Fat Layer Exposed Amount of bleeding with debridement: Mild Bleeding Controlled with: Pressure Patient tolerated procedure: Patient tolerated procedure well Post-Debridement Measurements and Additional Note: Post-Debridement Measurements/Treatment WC - Nurse 1 - General Ulcer Assessment Start: 02/28/23 08:50 Freq: Status: Active Protocol: JUSTIN Activity Type Activity Date Activity User E-sign Co-sign Detail Recorded Client Recorded Date Recorded By Document 02/28/23 08:50 DL Desktop 02/28/23 08:54 DL 02/28/23 08:50 - Today's Visit Information Type of service 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 ) Arrival Mode Ambulatory Transfer Assistance None Patient Identification Verified (Name & Yes ) Patient Requires Transmission-Based No Precautions Finger Stick Blood Sugar(mg/dl) (if 162 indicated): Blood Sugar Stated by Patient Height and Weight Body Mass Index (BMI) 35.4 BMI Classification Obese Vital Signs Temperature (97.8 F-99.1 F) 97.5 F L Temperature Source Temporal Pulse Rate (60-100) 96 Pulse Location Monitor Respiratory Rate (12-18) 18 Respiratory rate source Observation Blood Pressure (90/60-120/80) 171/87 H Blood Pressure Mean (mm Hg) 115 Source Monitor History Since Last Visit- (Skip if this is Patient's initial visit) Have you changed medications since your No last visit? Any new allergies or adverse reactions No Had a fall/change in ADL's that may No increase risk of falls Signs or symptoms of abuse and/or No neglect since last visit Have you been in the hospital since your No last visit? Has dressing in place as prescribed Yes Has compression in place as prescribed N/A Has offloadiing in place as prescribed N/A Experienced any changes in pain level or No management Pain Scale: 0-10 Numeric Is Patient Pain Free? Yes - Nurse 1 - General Ulcer Measurement Start: 02/28/23 08:50 Freq: Status: Active Protocol: Activity Type Activity Date Activity User E-sign Co-sign Detail Recorded Client Recorded Date Recorded By Document 02/28/23 08:50 DL Desktop 02/28/23 08:54 DL 02/28/23 08:50 Wound Center Nurse 1 #1- ABDOMINAL POST OP -Current Size (cm) - Length 14.5 -Current Size (cm) - Width 2.8 -Current Size (cm) - Depth 0.1 -Total Square Cm 40.60 -Exudate Amt Medium -Exudate Type Serosanguineous -Wound Margin Distinct, Outline Attached -Granulation Amt Large (67-100%) -Granulation Quality Red -Necrosis Amt Small (1-33%) -Necrotic Tissue Type Adherent Slough -Texture (Matilde-wound Skin Appearance) Scarring -Color (Matilde-wound Skin Appearance) No Abnormality -Temperature (Matilde-wound Skin No Abnormality Appearance) (Pt Warm) -Ulcer Cleansing Rinsed/ Irrigated with Saline -Foul Odor after Cleansing No -Anesthetic Used 4% Lidocaine Solution - Nurse 2 - General Ulcer CM Notes Start: 02/28/23 08:50 Freq: Status: Active Protocol: Activity Type Activity Date Activity User E-sign Co-sign Detail Recorded Client Recorded Date Recorded By Document 02/28/23 09:18 Desktop 02/28/23 09:27 02/28/23 09:18 Wound Center Nurse 2 -Time 09:19 -Correct Patient Yes -Correct Side, Site, Position Yes -Correct Procedure Yes -Procedure Performed Yes -Type of Procedure Debridement -Clinical Debridement Subcutaneous -Tissue Removed Subcutaneous -Post Debridement (cm) - Length 13.7 -Post Debridement (cm) - Width 1.8 -Post Debridement (cm) - Depth 0.1 -Total Square (Post) (cm) 24.66 -Area of Debridement (cm) - Length 13.7 -Area of Debridement (cm) - Width 1.8 -Total Square (Area) (cm) 24.66 -Tunneling No -Undermining/Tunneling No -Circular Undermining No -Wound/Ulcer Outcome Not Healed -Ulcer Cleansing Rinsed/ Irrigated with Saline -Foul Odor after Cleansing No -Bioengineered Tissue No -Bleeding Controlled with Pressure -Treatment Response Procedure Tolerated Well -Debridement - Subq, 1st 20sq cm Yes -Debridement, SubQ, ea addt'l 20sq cm 1 or part thereof Pain Scale: 0-10 Numeric Is Patient Pain Free? Yes - Nurse 3 - General Ulcer D/C NN Start: 02/28/23 08:50 Freq: Status: Active Protocol: Activity Type Activity Date Activity User E-sign Co-sign Detail Recorded Client Recorded Date Recorded By Document 02/28/23 09:38 [facility] Desktop 02/28/23 09:39 [facility] 02/28/23 09:38 Wound Care Center Nurse 3 #1- ABDOMINAL POST OP -Ulcer Cleansing Rinsed/ Irrigated with Saline -Foul Odor after Cleansing No -Primary Dressing Applied Fibracol Plus 4x4,NonAdherent Contact Layer -Other Dressing abd -Primary Dressing Covered/Secured with Secured with Tape -Fibracol Plus 4x4 1 Treatment Response Procedure Tolerated Well Pain Scale: 0-10 Numeric Is Patient Pain Free? Yes WC - Visit Discharge Discharge Condition Stable Ambulatory Status Ambulatory Transportation Private Auto Accompanied by Assessment/Plan Assessment/Plan (1) Non-healing surgical wound: CODE(S): T81.89XA - Other complications of procedures, not elsewhere classified, initial encounter (2) S/P colectomy: CODE(S): Z90.49 - Acquired absence of other specified parts of digestive tract (3) Colostomy in place: CODE(S): Z93.3 - Colostomy status (4) Type 2 diabetes mellitus: CODE(S): E11.9 - Type 2 diabetes mellitus without complications (5) Perforation of sigmoid colon due to diverticulitis: CODE(S): K57.20 - Diverticulitis of large intestine with perforation and abscess without bleeding PLAN: Plan Debridement done as documented above, procedure was well-tolerated. Some im provement noted. Cultures reviewed and started on ciprofloxacin per sensitivity. Continue Fibracol daily, cover with Adaptic, gauze/foam dressing. Continue adequate protein intake, Vitamin C, D and zinc. Their questions were answered and they were advised to call if they have any further questions or concerns. Patient and voiced understanding. Follow-up in 2 weeks or sooner if needed. This note was generated with [employer] dictation software. It may contain incorrect words, spelling, and punctuation that were not noted in checking the note before signing.
[2023-03-14 08:51] VITALS: BP 193/96; PULSE 91; RESP 18; TEMP 36.3; BMI 35.4
--- NOTE | 2023-03-14 10:35 | PCM.WC.PN ---
History of Present Illness Date of Service: 03/14/23 Chief Complaint: Non healing surgical wound History of Wound: Mr. Duque is a 61 yo who presents here due to non healing surgical wound. History of perforated diverticulitis necessitating partial colectomy and a diverting colostomy. Hospital stay also complicated by intra-abdominal abscess. Following his hospital stay in July, he was admitted at the TCU for rehabilitation at which time he had local wound care with [facility]. Was seen by his general surgeon about a week ago following which he was started on a wound VAC on Saturday. So far tolerating wound VAC well. Progress of Wound: Improving. No new concerns at this time. Denies significant pain or drainage. Objective Data Objective Data Vital Signs: Vital Signs Temp Pulse Resp BP Pulse Ox 97.3 F L 91 18 193/96 H 98 03/14/23 08:51 03/14/23 08:51 03/14/23 08:51 03/14/23 08:51 02/25/23 00:12 Weight: 233 lb Body Mass Index (BMI) 35.4 Charges/Coding Procedures Integumentary 111xxx-113xx: 52840 Hannah subq tissue 20 sq cm/< Physical Exam Const alert, oriented x3 and no apparent distress General Appearance: cooperative, comfortable and well kempt HEENT normocephalic, head/scalp atraumatic and hearing grossly normal bilaterally Eyes PERRL and EOMs intact bilaterally General Eye: normal appearance of both eyes Neck full ROM and supple General: normal visual inspection Resp normal respiratory effort GI non-tender and non-distended GI Narrative: Large midline abdominal wound, colostomy. Skin Wounds: wounds noted Neuro oriented x3, CN's II-XII intact bilaterally, moves all extremities and no focal motor deficits Psych mental status grossly normal, thought process normal and cooperative Debridement Note Debridement Note Wound debrided: Abdominal Type of Debridement: Excisional debridement Anesthesia Used: 4% Lidocaine Solution Depth: Down to and including healthy tissue and in the subcutaneous layer Percentage of wound debrided: 100 Instrument Used: 7mm curette Tissue Removed: Slough and devitalized tissue Severity: Fat Layer Exposed Amount of bleeding with debridement: Mild Bleeding Controlled with: Pressure Patient tolerated procedure: Patient tolerated procedure well Post-Debridement Measurements and Additional Note: Post-Debridement Measurements/Treatment WC - Nurse 1 - General Ulcer Assessment Start: 02/28/23 08:50 Freq: Status: Active Protocol: JUSTIN Activity Type Activity Date Activity User E-sign Co-sign Detail Recorded Client Recorded Date Recorded By Document 02/28/23 08:50 DL Desktop 02/28/23 08:54 DL Document 03/14/23 08:51 RB Desktop 03/14/23 08:53 RB 02/28/23 03/14/23 08:50 08:51 WC - Today's Visit Information Type of service Follow-up Visit Follow-up Visit (Physician/STOCK SHAPER (Physician/STOCK SHAPER ) ) Arrival Mode Ambulatory Ambulatory Transfer Assistance None None Patient Identification Verified (Name & Yes Yes ) Patient Requires Transmission-Based No No Precautions Finger Stick Blood Sugar(mg/dl) (if 162 indicated): Blood Sugar Stated by Patient Height and Weight Body Mass Index (BMI) 35.4 35.4 BMI Classification Obese Obese Vital Signs Temperature (97.8 F-99.1 F) 97.5 F L 97.3 F L Temperature Source Temporal Temporal Pulse Rate (60-100) 96 91 Pulse Location Monitor Monitor Respiratory Rate (12-18) 18 18 Respiratory rate source Observation Observation Blood Pressure (90/60-120/80) 171/87 H 193/96 H Blood Pressure Mean (mm Hg) 115 128 Source Monitor Monitor Position Semi-Fowlers Blood Pressure Location Left Arm History Since Last Visit- (Skip if this is Patient's initial visit) Have you changed medications since your No No last visit? Any new allergies or adverse reactions No No Had a fall/change in ADL's that may No No increase risk of falls Signs or symptoms of abuse and/or No No neglect since last visit Have you been in the hospital since your No No last visit? Has dressing in place as prescribed Yes Yes Has compression in place as prescribed N/A No Has offloadiing in place as prescribed N/A No Experienced any changes in pain level or No No management Pain Scale: 0-10 Numeric Is Patient Pain Free? Yes Yes - Nurse 1 - General Ulcer Measurement Start: 02/28/23 08:50 Freq: Status: Active Protocol: Activity Type Activity Date Activity User E-sign Co-sign Detail Recorded Client Recorded Date Recorded By Document 02/28/23 08:50 DL Desktop 02/28/23 08:54 DL Document 03/14/23 08:51 RB Desktop 03/14/23 08:53 RB 02/28/23 03/14/23 08:50 08:51 Wound Center Nurse 1 #1- ABDOMINAL POST OP -Combined with other wound No -Current Size (cm) - Length 14.5 12.6 -Current Size (cm) - Width 2.8 2.7 -Current Size (cm) - Depth 0.1 0.1 -Total Square Cm 40.60 34.02 -Photo Taken Yes -Tunneling No -Undermining/Tunneling No -Circular Undermining No -Exudate Amt Medium Medium -Exudate Type Serosanguineous Serosanguineous -Wound Margin Distinct, Distinct, Outline Outline Attached Attached -Granulation Amt Large (67-100%) Medium (34-66%) -Granulation Quality [place] -Slough/Fibrin Yes -Necrosis Amt Small (1-33%) Medium (34-66%) -Necrotic Tissue Type Adherent Slough Adherent Slough -Structure Exposed N/A -Texture (Matilde-wound Skin Appearance) Scarring Assessed -Moisture (Matilde-wound Skin Appearance) Assessed -Color (Matilde-wound Skin Appearance) No Abnormality Assessed -Temperature (Matilde-wound Skin No Abnormality No Abnormality Appearance) (Pt Warm) (Pt Warm) -Tenderness on Palpation (Matilde-wound No Skin Appearance) -Ulcer Cleansing Rinsed/ Wound Cleanser Irrigated with Saline -Foul Odor after Cleansing No No -Anesthetic Used 4% Lidocaine 4% Lidocaine Solution Solution WC - Nurse 2 - General Ulcer CM Notes Start: 02/28/23 08:50 Freq: Status: Active Protocol: Activity Type Activity Date Activity User E-sign Co-sign Detail Recorded Client Recorded Date Recorded By Document 02/28/23 09:18 Desktop 02/28/23 09:27 Document 03/14/23 09:16 [employer] 03/14/23 09:25 02/28/23 03/14/23 09:18 09:16 Wound Center Nurse 2 #1- ABDOMINAL POST OP -Time 09:19 09:17 -Correct Patient Yes Yes -Correct Side, Site, Position Yes Yes -Correct Procedure Yes Yes -Procedure Performed Yes Yes -Type of Procedure Debridement Debridement -Clinical Debridement Subcutaneous Subcutaneous -Tissue Removed Subcutaneous Subcutaneous -Post Debridement (cm) - Length 13.7 13 -Post Debridement (cm) - Width 1.8 1.3 -Post Debridement (cm) - Depth 0.1 0.1 -Total Square (Post) (cm) 24.66 16.9 -Area of Debridement (cm) - Length 13.7 13 -Area of Debridement (cm) - Width 1.8 1.3 -Total Square (Area) (cm) 24.66 16.9 -Tunneling No No -Undermining/Tunneling No No -Circular Undermining No No -Wound/Ulcer Outcome Not Healed Not Healed -Ulcer Cleansing Rinsed/ Rinsed/ Irrigated with Irrigated with Saline Saline -Foul Odor after Cleansing No No -Bioengineered Tissue No No -Bleeding Controlled with Pressure Pressure -Treatment Response Procedure Procedure Tolerated Well Tolerated Well -Debridement - Subq, 1st 20sq cm Yes Yes -Debridement, SubQ, ea addt'l 20sq cm 1 or part thereof Pain Scale: 0-10 Numeric Is Patient Pain Free? Yes Yes - Nurse 3 - General Ulcer D/C NN Start: 02/28/23 08:50 Freq: Status: Active Protocol: Activity Type Activity Date Activity User E-sign Co-sign Detail Recorded Client Recorded Date Recorded By Document 02/28/23 09:38 [facility] Desktop 02/28/23 09:39 [facility] Document 03/14/23 09:28 [facility] Desktop 03/14/23 09:29 [facility] 02/28/23 03/14/23 09:38 09:28 Wound Care Center Nurse 3 #1- ABDOMINAL POST OP -Ulcer Cleansing Rinsed/ Rinsed/ Irrigated with Irrigated with Saline Saline -Foul Odor after Cleansing No No -Primary Dressing Applied Fibracol Plus Fibracol Plus 4x4,NonAdherent 4x4,NonAdherent Contact Layer Contact Layer -Other Dressing abd ABD; DRSGS PER RB RN -Primary Dressing Covered/Secured with Secured with Dry Gauze, Tape Secured with Tape -Fibracol Plus 4x4 1 1 Treatment Response Procedure Procedure Tolerated Well Tolerated Well Pain Scale: 0-10 Numeric Is Patient Pain Free? Yes Yes - Visit Discharge Discharge Condition Stable Stable Ambulatory Status Ambulatory Ambulatory Transportation Private Auto Private Auto Accompanied by Facility Type Home Health Assessment/Plan Assessment/Plan (1) Non-healing surgical wound: CODE(S): T81.89XA - Other complications of procedures, not elsewhere classified, initial encounter (2) S/P colectomy: CODE(S): Z90.49 - Acquired absence of other specified parts of digestive tract (3) Colostomy in place: CODE(S): Z93.3 - Colostomy status (4) Type 2 diabetes mellitus: CODE(S): E11.9 - Type 2 diabetes mellitus without complications (5) Perforation of sigmoid colon due to diverticulitis: CODE(S): K57.20 - Diverticulitis of large intestine with perforation and abscess without bleeding PLAN: Plan Debridement done as documented above, procedure was well-tolerated. Improving. Continue Fibracol daily, cover with Adaptic, gauze/foam dressing. Continue adequate protein intake, Vitamin C, D and zinc. Their questions were answered and they were advised to call if they have any further questions or concerns. Patient and voiced understanding. Follow-up in 2 weeks or sooner if needed. This note was generated with [employer] dictation software. It may contain incorrect words, spelling, and punctuation that were not noted in checking the note before signing.
== END 2023-03-27 23:59 | disposition home or self-care (01) ==
LOC: WC 08:45
PROVIDERS: PCP Internal Medicine; Referring Provider Internal Medicine; Visit Provider Internal Medicine
DX: T81.89XA Other complications of procedures, not elsewhere classified, initial encounter (principal); Z93.3 Colostomy status; E11.9 Type 2 diabetes mellitus without complications; Z90.49 Acquired absence of other specified parts of digestive tract; K57.20 Diverticulitis of large intestine with perforation and abscess without bleeding
CPT/HCPCS: 11042; 11045

== ENCOUNTER 2023-04-18 08:30 | Outpatient (RCR) | payer OTHER, SELFPAY ==
[2023-03-28 00:12] VITALS: BP 193/96; PULSE 91; RESP 18; TEMP 36.3; O2SAT 98; BMI 35.4
[2023-03-28 08:43] VITALS: BP 165/86; PULSE 78; RESP 18; TEMP 36.1; BMI 35.4
--- NOTE | 2023-03-28 09:33 | PCM.WC.PN ---
History of Present Illness Date of Service: 03/28/23 Chief Complaint: Non healing surgical wound History of Wound: Mr. Duque is a 61 yo who presents here due to non healing surgical wound. History of perforated diverticulitis necessitating partial colectomy and a diverting colostomy. Hospital stay also complicated by intra-abdominal abscess. Following his hospital stay in July, he was admitted at the TCU for rehabilitation at which time he had local wound care with [facility]. Was seen by his general surgeon about a week ago following which he was started on a wound VAC on Saturday. So far tolerating wound VAC well. Progress of Wound: Modest improvement. Reports itching and irritation in the periwound area. Objective Data Objective Data Vital Signs: Vital Signs Temp Pulse Resp BP Pulse Ox 97 F L 78 18 165/86 H 98 03/28/23 08:43 03/28/23 08:43 03/28/23 08:43 03/28/23 08:43 03/28/23 00:12 Weight: 233 lb Body Mass Index (BMI) 35.4 Charges/Coding Procedures Integumentary 111xxx-113xx: 61327 Hannah subq tissue 20 sq cm/< Physical Exam Const alert, oriented x3 and no apparent distress General Appearance: cooperative, comfortable and well kempt HEENT normocephalic, head/scalp atraumatic and hearing grossly normal bilaterally Eyes PERRL and EOMs intact bilaterally General Eye: normal appearance of both eyes Neck full ROM and supple General: normal visual inspection Resp normal respiratory effort GI non-tender and non-distended GI Narrative: Large midline abdominal wound, colostomy. Skin Wounds: wounds noted Neuro oriented x3, CN's II-XII intact bilaterally, moves all extremities and no focal motor deficits Psych mental status grossly normal, thought process normal and cooperative Debridement Note Debridement Note Wound debrided: Abdominal Type of Debridement: Excisional debridement Anesthesia Used: 4% Lidocaine Solution Depth: Down to and including healthy tissue and in the subcutaneous layer Percentage of wound debrided: 100 Instrument Used: 5mm curette Tissue Removed: Slough and devitalized tissue Severity: Fat Layer Exposed Amount of bleeding with debridement: Mild Bleeding Controlled with: Pressure Patient tolerated procedure: Patient tolerated procedure well Post-Debridement Measurements and Additional Note: Post-Debridement Measurements/Treatment WC - Nurse 1 - General Ulcer Assessment Start: 03/28/23 08:43 Freq: Status: Active Protocol: NEVINEXDana Activity Type Activity Date Activity User E-sign Co-sign Detail Recorded Client Recorded Date Recorded By Document 03/28/23 08:43 Desktop 03/28/23 08:45 03/28/23 08:43 - Today's Visit Information Type of service Follow-up Visit (Physician/BOTT[employer] [facility] ) Arrival Mode Ambulatory Transfer Assistance None Patient Identification Verified (Name & Yes ) Patient Requires Transmission-Based No Precautions Height and Weight Body Mass Index (BMI) 35.4 BMI Classification Obese Vital Signs Temperature (97.8 F-99.1 F) 97 F L Temperature Source Temporal Pulse Rate (60-100) 78 Pulse Location Monitor Respiratory Rate (12-18) 18 Respiratory rate source Observation Blood Pressure (90/60-120/80) 165/86 H Blood Pressure Mean (mm Hg) 112 Source Monitor Position Semi-Fowlers Blood Pressure Location Left Arm History Since Last Visit- (Skip if this is Patient's initial visit) Have you changed medications since your Yes last visit? Any new allergies or adverse reactions No Had a fall/change in ADL's that may No increase risk of falls Signs or symptoms of abuse and/or No neglect since last visit Have you been in the hospital since your No last visit? Has dressing in place as prescribed Yes Has compression in place as prescribed No Has offloadiing in place as prescribed No Experienced any changes in pain level or No management Pain Scale: 0-10 Numeric Is Patient Pain Free? Yes - Nurse 1 - General Ulcer Measurement Start: 03/28/23 08:43 Freq: Status: Active Protocol: Activity Type Activity Date Activity User E-sign Co-sign Detail Recorded Client Recorded Date Recorded By Document 03/28/23 08:43 Desktop 03/28/23 08:45 03/28/23 08:43 Wound Center Nurse 1 #1- ABDOMINAL POST OP -Combined with other wound No -Current Size (cm) - Length 13.2 -Current Size (cm) - Width 2.2 -Current Size (cm) - Depth 0.1 -Total Square Cm 29.04 -Photo Taken Yes -Tunneling No -Undermining/Tunneling No -Circular Undermining No -Exudate Amt Large -Exudate Type Serosanguineous -Wound Margin Distinct, Outline Attached -Granulation Amt Medium (34-66%) -Granulation Quality [place] -Slough/Fibrin Yes -Necrosis Amt Large (67-100%) -Necrotic Tissue Type Adherent Slough -Structure Exposed N/A -Texture (Matilde-wound Skin Appearance) Assessed, Scarring -Moisture (Matilde-wound Skin Appearance) Assessed -Color (Matilde-wound Skin Appearance) Erythema -Temperature (Matilde-wound Skin No Abnormality Appearance) (Pt Warm) -Tenderness on Palpation (Matilde-wound No Skin Appearance) -Ulcer Cleansing Wound Cleanser -Foul Odor after Cleansing No -Anesthetic Used 4% Lidocaine Solution WC - Nurse 2 - General Ulcer CM Notes Start: 03/28/23 08:43 Freq: Status: Active Protocol: Activity Type Activity Date Activity User E-sign Co-sign Detail Recorded Client Recorded Date Recorded By Document 03/28/23 09:13 Desktop 03/28/23 09:19 03/28/23 09:13 Wound Center Nurse 2 -Time 09:14 -Correct Patient Yes -Correct Side, Site, Position Yes -Correct Procedure Yes -Procedure Performed Yes -Type of Procedure Debridement -Clinical Debridement Subcutaneous -Tissue Removed Subcutaneous -Post Debridement (cm) - Length 13.0 -Post Debridement (cm) - Width 1.0 -Post Debridement (cm) - Depth 0.1 -Total Square (Post) (cm) 13.00 -Area of Debridement (cm) - Length 13.0 -Area of Debridement (cm) - Width 1.0 -Total Square (Area) (cm) 13.00 -Tunneling No -Undermining/Tunneling No -Circular Undermining No -Wound/Ulcer Outcome Not Healed -Ulcer Cleansing Rinsed/ Irrigated with Saline -Foul Odor after Cleansing No -Bioengineered Tissue No -Bleeding Controlled with Pressure -Treatment Response Procedure Tolerated Well -Debridement - Subq, 1st 20sq cm Yes Pain Scale: 0-10 Numeric Is Patient Pain Free? Yes - Nurse 3 - General Ulcer D/C NN Start: 03/28/23 08:43 Freq: Status: Active Protocol: Activity Type Activity Date Activity User E-sign Co-sign Detail Recorded Client Recorded Date Recorded By Document 03/28/23 09:23 RB Desktop 03/28/23 09:24 RB 03/28/23 09:23 Wound Care Center Nurse 3 #1- ABDOMINAL POST OP -Ulcer Cleansing Rinsed/ Irrigated with Saline -Primary Dressing Applied Fibracol Plus 4x4,NonAdherent Contact Layer -Other Dressing abd -Fibracol Plus 4x4 1 Treatment Response Procedure Tolerated Well Pain Scale: 0-10 Numeric Is Patient Pain Free? Yes WC - Visit Discharge Discharge Condition Stable Ambulatory Status Ambulatory Transportation Private Auto Medication Reconcilliation completed & No provided to patient/care provider Clinical Summary of Care Provided Yes Assessment/Plan Assessment/Plan (1) Non-healing surgical wound: CODE(S): T81.89XA - Other complications of procedures, not elsewhere classified, initial encounter (2) S/P colectomy: CODE(S): Z90.49 - Acquired absence of other specified parts of digestive tract (3) Colostomy in place: CODE(S): Z93.3 - Colostomy status (4) Type 2 diabetes mellitus: CODE(S): E11.9 - Type 2 diabetes mellitus without complications (5) Perforation of sigmoid colon due to diverticulitis: CODE(S): K57.20 - Diverticulitis of large intestine with perforation and abscess without bleeding PLAN: Plan Debridement done as documented above, procedure was well-tolerated. Some improvement noted, healing process however going much slower now. Continue Fibracol daily, cover with Adaptic, gauze/foam dressing. He was advised to extend dressing beyond the area of irritation to avoid tape to the area. Prescription for hydrocortisone 2.5% ointment sent, apply as needed to help with itching. We also discussed a skin substitute and he is open to this. Will start application process. Continue adequate protein intake, Vitamin C, D and zinc. Their questions were answered and they were advised to call if they have any further questions or concerns. Patient and voiced understanding. Follow-up in 1 week or sooner if needed. This note was generated with [employer] software. It may contain incorrect words, spelling, and punctuation that were not noted in checking the note before signing.
[2023-04-04 08:45] VITALS: BP 161/82; PULSE 80; RESP 16; TEMP 36.3; BMI 35.4
--- NOTE | 2023-04-04 09:39 | PCM.WC.PN ---
History of Present Illness Date of Service: 04/04/23 Chief Complaint: Non healing surgical wound History of Wound: Mr. Duque is a 61 yo who presents here due to non healing surgical wound. History of perforated diverticulitis necessitating partial colectomy and a diverting colostomy. Hospital stay also complicated by intra-abdominal abscess. Following his hospital stay in July, he was admitted at the TCU for rehabilitation at which time he had local wound care with [facility]. Was seen by his general surgeon about a week ago following which he was started on a wound VAC on Saturday. So far tolerating wound VAC well. Progress of Wound: Still modest improvement. Periwound itching and irritation have improved. Objective Data Objective Data Vital Signs: Vital Signs Temp Pulse Resp BP Pulse Ox O2 Del Method 97.3 F L 80 16 161/82 H 98 Room Air 04/04/23 08:45 04/04/23 08:45 04/04/23 08:45 04/04/23 08:45 03/28/23 00:12 04/04/23 08:45 Oxygen Delivery Method Room Air Weight: 233 lb Body Mass Index (BMI) 35.4 Charges/Coding Procedures Integumentary 111xxx-113xx: 72600 Hannah subq tissue 20 sq cm/< Physical Exam Const alert, oriented x3 and no apparent distress General Appearance: cooperative, comfortable and well kempt HEENT normocephalic, head/scalp atraumatic and hearing grossly normal bilaterally Eyes PERRL and EOMs intact bilaterally General Eye: normal appearance of both eyes Neck full ROM and supple General: normal visual inspection Resp normal respiratory effort GI non-tender and non-distended GI Narrative: Large midline abdominal wound, colostomy. Skin Wounds: wounds noted Neuro oriented x3, CN's II-XII intact bilaterally, moves all extremities and no focal motor deficits Psych mental status grossly normal, thought process normal and cooperative Debridement Note Debridement Note Wound debrided: Abdominal Type of Debridement: Excisional debridement Anesthesia Used: 4% Lidocaine Solution Depth: Down to and including healthy tissue and in the subcutaneous layer Percentage of wound debrided: 100 Instrument Used: 5mm curette Tissue Removed: Slough and devitalized tissue Severity: Fat Layer Exposed Amount of bleeding with debridement: Mild Bleeding Controlled with: Pressure Patient tolerated procedure: Patient tolerated procedure well Post-Debridement Measurements and Additional Note: Post-Debridement Measurements/Treatment WC - Nurse 1 - General Ulcer Assessment Start: 03/28/23 08:43 Freq: Status: Active Protocol: JUSTIN Activity Type Activity Date Activity User E-sign Co-sign Detail Recorded Client Recorded Date Recorded By Document 03/28/23 08:43 RB Desktop 03/28/23 08:45 RB Document 04/04/23 08:45 BMF Desktop 04/04/23 08:51 BMF 03/28/23 04/04/23 08:43 08:45 WC - Today's Visit Information Type of service Follow-up Visit Follow-up Visit (Physician/SODA COLUMN OPERATOR (Physician/SODA COLUMN OPERATOR ) ) Arrival Mode Ambulatory Ambulatory Transfer Assistance None None Accompanied by Patient Identification Verified (Name & Yes Yes ) Patient Requires Transmission-Based No No Precautions Height and Weight Body Mass Index (BMI) 35.4 35.4 BMI Classification Obese Obese Vital Signs Temperature (97.8 F-99.1 F) 97 F L 97.3 F L Temperature Source Temporal Temporal Pulse Rate (60-100) 78 80 Pulse Location Monitor Monitor Respiratory Rate (12-18) 18 16 Respiratory rate source Observation Observation Oxygen Delivery Method Room Air Blood Pressure (90/60-120/80) 165/86 H 161/82 H Blood Pressure Mean (mm Hg) 112 108 Source Monitor Monitor Position Semi-Fowlers Sitting Blood Pressure Location Left Arm Left Arm History Since Last Visit- (Skip if this is Patient's initial visit) Have you changed medications since your Yes No last visit? Any new allergies or adverse reactions No No Had a fall/change in ADL's that may No No increase risk of falls Signs or symptoms of abuse and/or No No neglect since last visit Have you been in the hospital since your No No last visit? Has dressing in place as prescribed Yes Yes Has compression in place as prescribed No N/A Has offloadiing in place as prescribed No N/A Experienced any changes in pain level or No No management Left Footwear Regular Shoe Right Footwear Regular Shoe Pain Scale: 0-10 Numeric Is Patient Pain Free? Yes Yes JYOTHI - Nurse 1 - General Ulcer Measurement Start: 03/28/23 08:43 Freq: Status: Active Protocol: Activity Type Activity Date Activity User E-sign Co-sign Detail Recorded Client Recorded Date Recorded By Document 03/28/23 08:43 RB Desktop 03/28/23 08:45 RB Document 04/04/23 08:45 [facility] Desktop 04/04/23 08:51 [facility] 03/28/23 04/04/23 08:43 08:45 Wound Center Nurse 1 #1- ABDOMINAL POST OP -Combined with other wound No No -Current Size (cm) - Length 13.2 13 -Current Size (cm) - Width 2.2 2.6 -Current Size (cm) - Depth 0.1 0.1 -Total Square Cm 29.04 33.8 -Date of Last Picture (Recall this 04/04/23 field) -Photo Taken Yes Yes -Epithelialization Large 67-100% -Tunneling No No -Undermining/Tunneling No No -Circular Undermining No No -Exudate Amt Large Medium -Exudate Type Serosanguineous Serosanguineous -Wound Margin Distinct, Distinct, Outline Outline Attached Attached -Granulation Amt Medium (34-66%) Large (67-100%) -Granulation Quality [place] Red -Slough/Fibrin Yes Yes -Necrosis Amt Large (67-100%) Small (1-33%) -Necrotic Tissue Type Adherent Slough Adherent Slough -Structure Exposed N/A -Texture (Matilde-wound Skin Appearance) Assessed, Assessed, Scarring Scarring -Moisture (Matilde-wound Skin Appearance) Assessed Assessed -Color (Matilde-wound Skin Appearance) Erythema Assessed -Temperature (Matilde-wound Skin No Abnormality No Abnormality Appearance) (Pt Warm) (Pt Warm) -Tenderness on Palpation (Matilde-wound No No Skin Appearance) -Ulcer Cleansing Wound Cleanser Soap and Water -Foul Odor after Cleansing No No -Anesthetic Used 4% Lidocaine 4% Lidocaine Solution Solution WC - Nurse 2 - General Ulcer CM Notes Start: 03/28/23 08:43 Freq: Status: Active Protocol: Activity Type Activity Date Activity User E-sign Co-sign Detail Recorded Client Recorded Date Recorded By Document 03/28/23 09:13 Desktop 03/28/23 09:19 Document 04/04/23 09:04 Desktop 04/04/23 09:08 03/28/23 04/04/23 09:13 09:04 Wound Center Nurse 2 #1- ABDOMINAL POST OP -Time 09:14 09:04 -Correct Patient Yes Yes -Correct Side, Site, Position Yes Yes -Correct Procedure Yes Yes -Procedure Performed Yes Yes -Type of Procedure Debridement Debridement -Clinical Debridement Subcutaneous Subcutaneous -Tissue Removed Subcutaneous Subcutaneous -Post Debridement (cm) - Length 13.0 12.3 -Post Debridement (cm) - Width 1.0 1.0 -Post Debridement (cm) - Depth 0.1 0.1 -Total Square (Post) (cm) 13.00 12.30 -Area of Debridement (cm) - Length 13.0 12.3 -Area of Debridement (cm) - Width 1.0 1.0 -Total Square (Area) (cm) 13.00 12.30 -Tunneling No No -Undermining/Tunneling No No -Circular Undermining No No -Wound/Ulcer Outcome Not Healed Not Healed -Ulcer Cleansing Rinsed/ Rinsed/ Irrigated with Irrigated with Saline Saline -Foul Odor after Cleansing No -Bioengineered Tissue No -Bleeding Controlled with Pressure Pressure -Treatment Response Procedure Procedure Tolerated Well Tolerated Well -Debridement - Subq, 1st 20sq cm Yes Yes Pain Scale: 0-10 Numeric Is Patient Pain Free? Yes Yes - Nurse 3 - General Ulcer D/C NN Start: 03/28/23 08:43 Freq: Status: Active Protocol: Activity Type Activity Date Activity User E-sign Co-sign Detail Recorded Client Recorded Date Recorded By Document 03/28/23 09:23 Desktop 03/28/23 09:24 RB Document 04/04/23 09:14 [facility] Desktop 04/04/23 09:15 [facility] 03/28/23 04/04/23 09:23 09:14 Wound Care Center Nurse 3 #1- ABDOMINAL POST OP -Ulcer Cleansing Rinsed/ Rinsed/ Irrigated with Irrigated with Saline Saline -Foul Odor after Cleansing No -Primary Dressing Applied Fibracol Plus Fibracol Plus 4x4,NonAdherent 4x4,NonAdherent Contact Layer Contact Layer -Other 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 Yes Yes - Visit Discharge Discharge Condition Stable Stable Ambulatory Status Ambulatory Ambulatory Transportation Private Auto Private Auto Medication Reconcilliation completed & No provided to patient/care provider Clinical Summary of Care Provided Yes Assessment/Plan Assessment/Plan (1) Non-healing surgical wound: CODE(S): T81.89XA - Other complications of procedures, not elsewhere classified, initial encounter (2) S/P colectomy: CODE(S): Z90.49 - Acquired absence of other specified parts of digestive tract (3) Colostomy in place: CODE(S): Z93.3 - Colostomy status (4) Type 2 diabetes mellitus: CODE(S): E11.9 - Type 2 diabetes mellitus without complications (5) Perforation of sigmoid colon due to diverticulitis: CODE(S): K57.20 - Diverticulitis of large intestine with perforation and abscess without bleeding PLAN: Plan Debridement done as documented above, procedure was well-tolerated. Some improvement noted, healing process however still going much slower now. Continue Fibracol daily, cover with Adaptic, gauze/foam dressing. Still awaiting approval for skin substitute. Continue adequate protein intake, Vitamin C, D and zinc. Recent A1c at 8.5, he was restarted on metformin and Januvia by his PCP. Optimal diabetes control also recommended. Their questions were answered and they were advised to call if they have any further questions or concerns. Patient and voiced understanding. Follow-up in 2 weeks or sooner if needed. This note was generated with [employer] dictation software. It may contain incorrect words, spelling, and punctuation that were not noted in checking the note before signing.
[2023-04-18 08:31] VITALS: BP 183/93; PULSE 91; RESP 16; TEMP 36.9; BMI 35.4
--- NOTE | 2023-04-18 08:55 | PCM.WC.PN ---
History of Present Illness Date of Service: 04/18/23 Chief Complaint: Non healing surgical wound History of Wound: Mr. Duque is a 61 yo who presents here due to non healing surgical wound. History of perforated diverticulitis necessitating partial colectomy and a diverting colostomy. Hospital stay also complicated by intra-abdominal abscess. Following his hospital stay in July, he was admitted at the TCU for rehabilitation at which time he had local wound care with [facility]. Was seen by his general surgeon about a week ago following which he was started on a wound VAC on Saturday. So far tolerating wound VAC well. Progress of Wound: No new concerns at this time. Some improvement noted. Skin substitute not approved by insurance. Objective Data Objective Data Vital Signs: Vital Signs Temp Pulse Resp BP Pulse Ox O2 Del Method 98.5 F 91 16 183/93 H 98 Room Air 04/18/23 08:31 04/18/23 08:31 04/18/23 08:31 04/18/23 08:31 03/28/23 00:12 04/18/23 08:31 Oxygen Delivery Method Room Air Weight: 233 lb Body Mass Index (BMI) 35.4 Charges/Coding Procedures Integumentary 111xxx-113xx: 35271 Hannah subq tissue 20 sq cm/< Physical Exam Const alert, oriented x3 and no apparent distress General Appearance: cooperative, comfortable and well kempt HEENT normocephalic, head/scalp atraumatic and hearing grossly normal bilaterally Eyes PERRL and EOMs intact bilaterally General Eye: normal appearance of both eyes Neck full ROM and supple General: normal visual inspection Resp normal respiratory effort GI non-tender and non-distended GI Narrative: Large midline abdominal wound, colostomy. Skin Wounds: wounds noted Neuro oriented x3, CN's II-XII intact bilaterally, moves all extremities and no focal motor deficits Psych mental status grossly normal, thought process normal and cooperative Debridement Note Debridement Note Wound debrided: Abdominal Type of Debridement: Excisional debridement Anesthesia Used: 4% Lidocaine Solution Depth: Down to and including healthy tissue and in the subcutaneous layer Percentage of wound debrided: 100 Instrument Used: 5mm curette Tissue Removed: Slough and devitalized tissue Severity: Fat Layer Exposed Amount of bleeding with debridement: Mild Bleeding Controlled with: Pressure Patient tolerated procedure: Patient tolerated procedure well Post-Debridement Measurements and Additional Note: Post-Debridement Measurements/Treatment WC - Nurse 1 - General Ulcer Assessment Start: 03/28/23 08:43 Freq: Status: Active Protocol: JUSTIN Activity Type Activity Date Activity User E-sign Co-sign Detail Recorded Client Recorded Date Recorded By Document 03/28/23 08:43 RB Desktop 03/28/23 08:45 RB Document 04/04/23 08:45 BMF Desktop 04/04/23 08:51 BMF Document 04/18/23 08:31 BMF Desktop 04/18/23 08:36 BMF 03/28/23 04/04/23 04/18/23 08:43 08:45 08:31 WC - Today's Visit Information Type of service Follow-up Visit Follow-up Visit Follow-up Visit (Physician/MASTER ESTHETICIAN (Physician/MASTER ESTHETICIAN (Physician/MASTER ESTHETICIAN ) ) ) Arrival Mode Ambulatory Ambulatory Ambulatory Transfer Assistance None None None Accompanied by Patient Identification Verified (Name & Yes Yes Yes ) Patient Requires Transmission-Based No No No Precautions Height and Weight Body Mass Index (BMI) 35.4 35.4 35.4 BMI Classification Obese Obese Obese Vital Signs Temperature (97.8 F-99.1 F) 97 F L 97.3 F L 98.5 F Temperature Source Temporal Temporal Temporal Pulse Rate (60-100) 78 80 91 Pulse Location Monitor Monitor Monitor Respiratory Rate (12-18) 18 16 16 Respiratory rate source Observation Observation Observation Oxygen Delivery Method Room Air Room Air Blood Pressure (90/60-120/80) 165/86 H 161/82 H 183/93 H Blood Pressure Mean (mm Hg) 112 108 123 Source Monitor Monitor Monitor Position Semi-Fowlers Sitting Sitting Blood Pressure Location Left Arm Left Arm Left Arm History Since Last Visit- (Skip if this is Patient's initial visit) Have you changed medications since your Yes No No last visit? Any new allergies or adverse reactions No No No Had a fall/change in ADL's that may No No No increase risk of falls Signs or symptoms of abuse and/or No No No neglect since last visit Have you been in the hospital since your No No No last visit? Has dressing in place as prescribed Yes Yes Yes Has compression in place as prescribed No N/A N/A Has offloadiing in place as prescribed No N/A N/A Experienced any changes in pain level or No No No management Left Footwear Regular Shoe Regular Shoe Right Footwear Regular Shoe Regular Shoe Pain Scale: 0-10 Numeric Is Patient Pain Free? Yes Yes Yes WC - Nurse 1 - General Ulcer Measurement Start: 03/28/23 08:43 Freq: Status: Active Protocol: Activity Type Activity Date Activity User E-sign Co-sign Detail Recorded Client Recorded Date Recorded By Document 03/28/23 08:43 RB Desktop 03/28/23 08:45 RB Document 04/04/23 08:45 BM[facility] Desktop 04/04/23 08:51 BMF Document 04/18/23 08:31 BMF Desktop 04/18/23 08:36 BMF 03/28/23 04/04/23 04/18/23 08:43 08:45 08:31 Wound Center Nurse 1 #1- ABDOMINAL POST OP -Combined with other wound No No No -Current Size (cm) - Length 13.2 13 11.8 -Current Size (cm) - Width 2.2 2.6 1.8 -Current Size (cm) - Depth 0.1 0.1 0.1 -Total Square Cm 29.04 33.8 21.24 -Date of Last Picture (Recall this 04/04/23 04/18/23 field) -Photo Taken Yes Yes Yes -Epithelialization Large 67-100% Small 1-33% -Tunneling No No No -Undermining/Tunneling No No No -Circular Undermining No No No -Exudate Amt Large Medium Medium -Exudate Type Serosanguineous Serosanguineous Serosanguineous -Wound Margin Distinct, Distinct, Distinct, Outline Outline Outline Attached Attached Attached -Granulation Amt Medium (34-66%) Large (67-100%) Medium (34-66%) -Granulation Quality [place] Red Pale,Red -Slough/Fibrin Yes Yes Yes -Necrosis Amt Large (67-100%) Small (1-33%) Small (1-33%) -Necrotic Tissue Type Adherent Slough Adherent Slough Adherent Slough -Structure Exposed N/A -Texture (Matilde-wound Skin Appearance) Assessed, Assessed, Assessed, Scarring Scarring Scarring -Moisture (Matilde-wound Skin Appearance) Assessed Assessed Assessed,Dry/ Scaly -Color (Matilde-wound Skin Appearance) Erythema Assessed Assessed -Temperature (Matilde-wound Skin No Abnormality No Abnormality No Abnormality Appearance) (Pt Warm) (Pt Warm) (Pt Warm) -Tenderness on Palpation (Matilde-wound No No No Skin Appearance) -Ulcer Cleansing Wound Cleanser Soap and Water Rinsed/ Irrigated with Saline -Foul Odor after Cleansing No No No -Anesthetic Used 4% Lidocaine 4% Lidocaine 4% Lidocaine Solution Solution Solution WC - Nurse 2 - General Ulcer CM Notes Start: 03/28/23 08:43 Freq: Status: Active Protocol: Activity Type Activity Date Activity User E-sign Co-sign Detail Recorded Client Recorded Date Recorded By Document 03/28/23 09:13 GM Desktop 03/28/23 09:19 GM Document 04/04/23 09:04 GM Desktop 04/04/23 09:08 GM Document 04/18/23 08:43 GM Desktop 04/18/23 08:51 GM 03/28/23 04/04/23 04/18/23 09:13 09:04 08:43 Wound Center Nurse 2 #1- ABDOMINAL POST OP -Time 09:14 09:04 08:43 -Correct Patient Yes Yes Yes -Correct Side, Site, Position Yes Yes Yes -Correct Procedure Yes Yes Yes -Procedure Performed Yes Yes Yes -Type of Procedure Debridement Debridement Debridement -Clinical Debridement Subcutaneous Subcutaneous Subcutaneous -Tissue Removed Subcutaneous Subcutaneous Subcutaneous -Post Debridement (cm) - Length 13.0 12.3 11.5 -Post Debridement (cm) - Width 1.0 1.0 0.5 -Post Debridement (cm) - Depth 0.1 0.1 0.1 -Total Square (Post) (cm) 13.00 12.30 5.75 -Area of Debridement (cm) - Length 13.0 12.3 11.5 -Area of Debridement (cm) - Width 1.0 1.0 0.5 -Total Square (Area) (cm) 13.00 12.30 5.75 -Tunneling No No No -Undermining/Tunneling No No No -Circular Undermining No No No -Wound/Ulcer Outcome Not Healed Not Healed Not Healed -Ulcer Cleansing Rinsed/ Rinsed/ Rinsed/ Irrigated with Irrigated with Irrigated with Saline Saline Saline -Foul Odor after Cleansing No No -Bioengineered Tissue No No -Bleeding Controlled with Pressure Pressure Pressure -Treatment Response Procedure Procedure Procedure Tolerated Well Tolerated Well Tolerated Well -Debridement - Subq, 1st 20sq cm Yes Yes Yes Pain Scale: 0-10 Numeric Is Patient Pain Free? Yes Yes Yes - Nurse 3 - General Ulcer D/C NN Start: 03/28/23 08:43 Freq: Status: Active Protocol: Activity Type Activity Date Activity User E-sign Co-sign Detail Recorded Client Recorded Date Recorded By Document 03/28/23 09:23 RB Desktop 03/28/23 09:24 RB Document 04/04/23 09:14 [facility] Desktop 04/04/23 09:15 [facility] 03/28/23 04/04/23 09:23 09:14 Wound Care Center Nurse 3 #1- ABDOMINAL POST OP -Ulcer Cleansing Rinsed/ Rinsed/ Irrigated with Irrigated with Saline Saline -Foul Odor after Cleansing No -Primary Dressing Applied Fibracol Plus Fibracol Plus 4x4,NonAdherent 4x4,NonAdherent Contact Layer Contact Layer -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 Yes Yes - Visit Discharge Discharge Condition Stable Stable Ambulatory Status Ambulatory Ambulatory Transportation Private Auto Private Auto Medication Reconcilliation completed & No provided to patient/care provider Clinical Summary of Care Provided Yes Assessment/Plan Assessment/Plan (1) Non-healing surgical wound: CODE(S): T81.89XA - Other complications of procedures, not elsewhere classified, initial encounter (2) S/P colectomy: CODE(S): Z90.49 - Acquired absence of other specified parts of digestive tract (3) Colostomy in place: CODE(S): Z93.3 - Colostomy status (4) Type 2 diabetes mellitus: CODE(S): E11.9 - Type 2 diabetes mellitus without complications (5) Perforation of sigmoid colon due to diverticulitis: CODE(S): K57.20 - Diverticulitis of large intestine with perforation and abscess without bleeding PLAN: Plan Debridement done as documented above, procedure was well-tolerated. Some improvement noted, healing process however still going much slower now. Request for skin substitute denied. Continue Fibracol daily, cover with Adaptic, gauze/foam dressing. Continue adequate protein intake, Vitamin C, D and zinc. Recent A1c at 8.5, he was restarted on metformin and Januvia by his PCP. Optimal diabetes control also recommended. Their questions were answered and they were advised to call if they have any further questions or concerns. Patient and voiced understanding. Follow-up in 2 weeks or sooner if needed. This note was generated with [employer] dictation software. It may contain incorrect words, spelling, and punctuation that were not noted in checking the note before signing.
== END 2023-04-25 23:59 | disposition home or self-care (01) ==
LOC: WC 08:30
PROVIDERS: PCP Internal Medicine; Referring Provider Internal Medicine; Visit Provider Internal Medicine
DX: T81.89XA Other complications of procedures, not elsewhere classified, initial encounter (principal); Z93.3 Colostomy status; E11.9 Type 2 diabetes mellitus without complications; Z90.49 Acquired absence of other specified parts of digestive tract; K57.20 Diverticulitis of large intestine with perforation and abscess without bleeding
CPT/HCPCS: 11042

== ENCOUNTER 2023-05-09 09:00 | Outpatient (RCR) | payer OTHER, SELFPAY ==
[2023-04-26 00:08] VITALS: BP 183/93; PULSE 91; RESP 16; TEMP 36.9; O2SAT 98; BMI 35.4
[2023-05-02 08:32] VITALS: BP 166/84; PULSE 86; RESP 18; TEMP 36.6; BMI 35.4
--- NOTE | 2023-05-02 08:58 | PN.PCM_ITS ---
History of Present Illness Date of Service: 05/02/23 Chief Complaint: Non healing surgical wound History of Wound: Mr. Duque is a 61 yo who presents here due to non healing surgical wound. History of perforated diverticulitis necessitating partial colectomy and a diverting colostomy. Hospital stay also complicated by intra- abdominal abscess. Following his hospital stay in July, he was admitted at the TCU for rehabilitation at which time he had local wound care with [facility]. Was seen by his general surgeon about a week ago following which he was started on a wound VAC on Saturday. So far tolerating wound VAC well. Progress of Wound: No new concerns reported at this time. Slow, steady improvement. Objective Data Objective Data Vital Signs: Vital Signs Temp Pulse Resp BP Pulse Ox 97.9 F 86 18 166/84 H 98 05/02/23 08:32 05/02/23 08:32 05/02/23 08:32 05/02/23 08:32 04/26/23 00:08 Weight: 233 lb Body Mass Index (BMI) 35.4 Charges/Coding Procedures Integumentary 111xxx-113xx: 99516 Hannah subq tissue 20 sq cm/< Physical Exam Const alert, oriented x3 and no apparent distress General Appearance: cooperative, comfortable and well kempt HEENT normocephalic, head/scalp atraumatic and hearing grossly normal bilaterally Eyes PERRL and EOMs intact bilaterally General Eye: normal appearance of both eyes Neck full ROM and supple General: normal visual inspection Resp normal respiratory effort GI non-tender and non-distended Skin Wounds: wounds noted Neuro oriented x3, CN's II-XII intact bilaterally, moves all extremities and no focal motor deficits Psych mental status grossly normal, thought process normal and cooperative Debridement Note Debridement Note Wound debrided: Abdominal wound (superior) Type of Debridement: Excisional debridement Anesthesia Used: 5% Lidocaine Gel Depth: Down to and including healthy tissue and in the subcutaneous layer Percentage of wound debrided: 100 Instrument Used: 5mm curette Tissue Removed: Slough and vitalized tissue Severity: Fat Layer Exposed Amount of bleeding with debridement: Mild Bleeding Controlled with: Pressure Patient tolerated procedure: Patient tolerated procedure well Post-Debridement Measurements and Additional Note: Post-Debridement Measurements/Treatment JYOTHI - Nurse 1 - General Ulcer Assessment Start: 05/02/23 08:32 Freq: Status: Active Protocol: JUSTIN Activity Type Activity Date Activity User E-sign Co-sign Detail Recorded Client Recorded Date Recorded By Document 05/02/23 08:32 RB Desktop 05/02/23 08:34 05/02/23 08:32 - Today's Visit Information Type of service Follow-up Visit (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/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 ADJUNCT ) Arrival Mode Ambulatory Transfer Assistance None Patient Identification Verified (Name & Yes ) Patient Requires Transmission-Based No Precautions Height and Weight Body Mass Index (BMI) 35.4 BMI Classification Obese Vital Signs Temperature (97.8 F-99.1 F) 97.9 F Temperature Source Temporal Pulse Rate (60-100) 86 Pulse Location Monitor Respiratory Rate (12-18) 18 Respiratory rate source Observation Blood Pressure (90/60-120/80) 166/84 H Blood Pressure Mean (mm Hg) 111 Source Monitor Position Semi-Fowlers Blood Pressure Location Left Arm History Since Last Visit- (Skip if this is Patient's initial visit) Have you changed medications since your No last visit? Any new allergies or adverse reactions No Had a fall/change in ADL's that may No increase risk of falls Signs or symptoms of abuse and/or No neglect since last visit Have you been in the hospital since your No last visit? Has dressing in place as prescribed Yes Has compression in place as prescribed No Has offloadiing in place as prescribed No Experienced any changes in pain level or No management Pain Scale: 0-10 Numeric Is Patient Pain Free? Yes - Nurse 1 - General Ulcer Measurement Start: 05/02/23 08:32 Freq: Status: Active Protocol: Activity Type Activity Date Activity User E-sign Co-sign Detail Recorded Client Recorded Date Recorded By Document 05/02/23 08:32 RB [facility] 05/02/23 08:34 05/02/23 08:32 Wound Center Nurse 1 #1- ABDOMINAL POST OP Superior -Combined with other wound No -Current Size (cm) - Length 0.1 -Current Size (cm) - Width 0.1 -Current Size (cm) - Depth 0.1 -Total Square Cm 0.01 -Tunneling No -Undermining/Tunneling No -Circular Undermining No -Exudate Amt Large -Exudate Type Serosanguineous -Wound Margin Distinct, Outline Attached -Granulation Amt Medium (34-66%) -Granulation Quality [place] -Slough/Fibrin Yes -Necrosis Amt Medium (34-66%) -Necrotic Tissue Type Adherent Slough -Structure Exposed N/A -Texture (Matilde-wound Skin Appearance) Assessed, Scarring -Color (Matilde-wound Skin Appearance) Assessed -Temperature (Matilde-wound Skin No Abnormality Appearance) (Pt Warm) -Tenderness on Palpation (Matilde-wound No Skin Appearance) -Ulcer Cleansing Wound Cleanser -Foul Odor after Cleansing No -Anesthetic Used 5% Lidocaine Gel WC - Nurse 2 - General Ulcer CM Notes Start: 05/02/23 08:32 Freq: Status: Active Protocol: Activity Type Activity Date Activity User E-sign Co-sign Detail Recorded Client Recorded Date Recorded By Document 05/02/23 08:46 GM Desktop 05/02/23 08:55 GM 05/02/23 08:46 Wound Center Nurse 2 #2 Abdomen Inferior -Time 08:54 -Correct Patient Yes -Correct Side, Site, Position Yes -Correct Procedure Yes -Procedure Performed Yes -Type of Procedure Debridement -Tissue Removed Subcutaneous -Post Debridement (cm) - Length 5.6 -Post Debridement (cm) - Width 0.7 -Post Debridement (cm) - Depth 0.1 -Total Square (Post) (cm) 3.92 -Area of Debridement (cm) - Length 5.6 -Area of Debridement (cm) - Width 0.7 -Total Square (Area) (cm) 3.92 -Tunneling No -Undermining/Tunneling No -Circular Undermining No -Wound/Ulcer Outcome Not Healed -Ulcer Cleansing Rinsed/ Irrigated with Saline -Foul Odor after Cleansing No -Bioengineered Tissue No -Bleeding Controlled with Pressure -Treatment Response Procedure Tolerated Well -Debridement - Subq, 1st 20sq cm No #1- ABDOMINAL POST OP Superior -Time 08:46 -Correct Patient Yes -Correct Side, Site, Position Yes -Correct Procedure Yes -Procedure Performed Yes -Type of Procedure Debridement -Clinical Debridement Subcutaneous -Tissue Removed Subcutaneous -Post Debridement (cm) - Length 4.2 -Post Debridement (cm) - Width 1.6 -Post Debridement (cm) - Depth 0.1 -Total Square (Post) (cm) 6.72 -Area of Debridement (cm) - Length 4.2 -Area of Debridement (cm) - Width 1.6 -Total Square (Area) (cm) 6.72 -Tunneling No -Undermining/Tunneling No -Circular Undermining No -Wound/Ulcer Outcome Not Healed -Ulcer Cleansing Rinsed/ Irrigated with Saline -Foul Odor after Cleansing No -Bioengineered Tissue No -Bleeding Controlled with Pressure -Treatment Response Procedure Tolerated Well -Debridement - Subq, 1st 20sq cm Yes Pain Scale: 0-10 Numeric Is Patient Pain Free? Yes Additional Wound Wound debrided: Abdominal wound (inferior) Type of Debridement: Excisional debridement Anesthesia Used: 5% Lidocaine Gel Depth: Down to and including healthy tissue and in the subcutaneous layer Percentage of wound debrided: 100 Instrument Used: 5mm curette Tissue Removed: Slough and devitalized tissue Severity: Fat Layer Exposed Amount of bleeding with debridement: Mild Bleeding Controlled with: Pressure Assessment/Plan Assessment/Plan (1) Non-healing surgical wound: CODE(S): T81.89XA - Other complications of procedures, not elsewhere classified, initial encounter (2) S/P colectomy: CODE(S): Z90.49 - Acquired absence of other specified parts of digestive tract (3) Colostomy in place: CODE(S): Z93.3 - Colostomy status (4) Type 2 diabetes mellitus: CODE(S): E11.9 - Type 2 diabetes mellitus without complications (5) Perforation of sigmoid colon due to diverticulitis: CODE(S): K57.20 - Diverticulitis of large intestine with perforation and abscess without bleeding PLAN: Plan Debridement done as documented above, procedure was well-tolerated. Some improvement noted. Now clustered into superior and inferior wounds. Continue Fibracol daily, cover with Adaptic, gauze/foam dressing. Continue adequate protein intake, Vitamin C, D and Zinc. Recent A1c at 8.5, he was restarted on metformin and Januvia by his PCP. Optimal diabetes control also recommended. Their questions were answered and they were advised to call if they have any further questions or concerns. Patient and voiced understanding. Follow- up in 1 week or sooner if needed. This note was generated with [employer]ampedMedia[employer] software. It may contain incorrect words, spelling, and punctuation that were not noted in checking the note before signing.
[2023-05-09 09:06] VITALS: BP 147/82; PULSE 87; RESP 18; TEMP 36.3; BMI 35.4
--- NOTE | 2023-05-09 09:40 | PN.PCM_ITS ---
History of Present Illness Date of Service: 05/09/23 Chief Complaint: Non healing surgical wound History of Wound: Mr. Duque is a 61 yo who presents here due to non healing surgical wound. History of perforated diverticulitis necessitating partial colectomy and a diverting colostomy. Hospital stay also complicated by intra- abdominal abscess. Following his hospital stay in July, he was admitted at the TCU for rehabilitation at which time he had local wound care with [facility]. Was seen by his general surgeon about a week ago following which he was started on a wound VAC on Saturday. So far tolerating wound VAC well. Progress of Wound: No new concerns reported at this time. Overall,Stable. Plan is for colostomy reversal probably sometime after June. Has a follow-up with his surgeon in June. Objective Data Objective Data Vital Signs: Vital Signs Temp Pulse Resp BP Pulse Ox 97.4 F L 87 18 147/82 H 98 05/09/23 09:06 05/09/23 09:06 05/09/23 09:06 05/09/23 09:06 04/26/23 00:08 Weight: 233 lb Body Mass Index (BMI) 35.4 Charges/Coding Procedures Integumentary 111xxx-113xx: 31163 Hannah subq tissue 20 sq cm/< Physical Exam Const alert, oriented x3 and no apparent distress General Appearance: cooperative, comfortable and well kempt HEENT normocephalic, head/scalp atraumatic and hearing grossly normal bilaterally Eyes PERRL and EOMs intact bilaterally General Eye: normal appearance of both eyes Neck full ROM and supple General: normal visual inspection Resp normal respiratory effort GI non-tender and non-distended Skin Wounds: wounds noted Neuro oriented x3, CN's II-XII intact bilaterally, moves all extremities and no focal motor deficits Psych mental status grossly normal, thought process normal and cooperative Debridement Note Debridement Note Wound debrided: Abdominal wound (superior) Type of Debridement: Excisional debridement Anesthesia Used: 5% Lidocaine Gel Depth: Down to and including healthy tissue and in the subcutaneous layer Percentage of wound debrided: 100 Instrument Used: 5mm curette Tissue Removed: Slough and vitalized tissue Severity: Fat Layer Exposed Amount of bleeding with debridement: Mild Bleeding Controlled with: Pressure Patient tolerated procedure: Patient tolerated procedure well Post-Debridement Measurements and Additional Note: Post-Debridement Measurements/Treatment WC - Nurse 1 - General Ulcer Assessment Start: 05/02/23 08:32 Freq: Status: Active Protocol: JUSTIN Activity Type Activity Date Activity User E-sign Co-sign Detail Recorded Client Recorded Date Recorded By Document 05/02/23 08:32 RB Desktop 05/02/23 08:34 RB Document 05/09/23 09:06 RB Desktop 05/09/23 09:08 RB 05/02/23 05/09/23 08:32 09:06 WC - Today's Visit Information Type of service Follow-up Visit Follow-up Visit (Physician/DOG OBEDIENCE INSTRUCTOR (Physician/DOG OBEDIENCE INSTRUCTOR ) ) Arrival Mode Ambulatory Ambulatory Transfer Assistance None None Patient Identification Verified (Name & Yes Yes ) Patient Requires Transmission-Based No No Precautions Height and Weight Body Mass Index (BMI) 35.4 35.4 BMI Classification Obese Obese Vital Signs Temperature (97.8 F-99.1 F) 97.9 F 97.4 F L Temperature Source Temporal Temporal Pulse Rate (60-100) 86 87 Pulse Location Monitor Monitor Respiratory Rate (12-18) 18 18 Respiratory rate source Observation Observation Blood Pressure (90/60-120/80) 166/84 H 147/82 H Blood Pressure Mean (mm Hg) 111 103 Source Monitor Monitor Position Semi-Fowlers Semi-Fowlers Blood Pressure Location Left Arm Left Arm History Since Last Visit- (Skip if this is Patient's initial visit) Have you changed medications since your No No last visit? Any new allergies or adverse reactions No No Had a fall/change in ADL's that may No No increase risk of falls Signs or symptoms of abuse and/or No No neglect since last visit Have you been in the hospital since your No No last visit? Has dressing in place as prescribed Yes Yes Has compression in place as prescribed No No Has offloadiing in place as prescribed No No Experienced any changes in pain level or No No management Pain Scale: 0-10 Numeric Is Patient Pain Free? Yes Yes - Nurse 1 - General Ulcer Measurement Start: 05/02/23 08:32 Freq: Status: Active Protocol: Activity Type Activity Date Activity User E-sign Co-sign Detail Recorded Client Recorded Date Recorded By Document 05/02/23 08:32 RB Desktop 05/02/23 08:34 RB Document 05/09/23 09:06 RB Desktop 05/09/23 09:08 RB 05/02/23 05/09/23 08:32 09:06 Wound Center Nurse 1 #2 Abdomen Inferior -Combined with other wound No -Current Size (cm) - Length 2 -Current Size (cm) - Width 1.8 -Current Size (cm) - Depth 0.1 -Total Square Cm 3.6 -Tunneling No -Undermining/Tunneling No -Circular Undermining No -Exudate Amt Medium -Exudate Type Serosanguineous -Wound Margin Distinct, Outline Attached -Granulation Amt Medium (34-66%) -Granulation Quality [place] -Slough/Fibrin Yes -Necrosis Amt Medium (34-66%) -Necrotic Tissue Type Adherent Slough -Structure Exposed N/A -Texture (Matilde-wound Skin Appearance) Assessed, Scarring -Moisture (Matilde-wound Skin Appearance) Assessed -Color (Matilde-wound Skin Appearance) Assessed -Temperature (Matilde-wound Skin No Abnormality Appearance) (Pt Warm) -Tenderness on Palpation (Matilde-wound No Skin Appearance) -Ulcer Cleansing Wound Cleanser -Foul Odor after Cleansing No -Anesthetic Used 5% Lidocaine Gel #1- ABDOMINAL POST OP Superior -Combined with other wound No -Current Size (cm) - Length 0.1 -Current Size (cm) - Width 0.1 -Current Size (cm) - Depth 0.1 -Total Square Cm 0.01 -Tunneling No -Undermining/Tunneling No -Circular Undermining No -Exudate Amt Large -Exudate Type Serosanguineous -Wound Margin Distinct, Outline Attached -Granulation Amt Medium (34-66%) -Granulation Quality [place] -Slough/Fibrin Yes -Necrosis Amt Medium (34-66%) -Necrotic Tissue Type Adherent Slough -Structure Exposed N/A -Texture (Matilde-wound Skin Appearance) Assessed, Scarring -Color (Matilde-wound Skin Appearance) Assessed -Temperature (Matilde-wound Skin No Abnormality Appearance) (Pt Warm) -Tenderness on Palpation (Matilde-wound No Skin Appearance) -Ulcer Cleansing Wound Cleanser -Foul Odor after Cleansing No -Anesthetic Used 5% Lidocaine Gel WC - Nurse 2 - General Ulcer CM Notes Start: 05/02/23 08:32 Freq: Status: Active Protocol: Activity Type Activity Date Activity User E-sign Co-sign Detail Recorded Client Recorded Date Recorded By Document 05/02/23 08:46 GM Desktop 05/02/23 08:55 GM Document 05/09/23 09:22 GM Desktop 05/09/23 09:29 GM Edit Result 05/09/23 09:22 GM (1) Desktop 05/09/23 09:31 GM (1) #2 Abdomen Inferior - Post Debridement (cm) - Length => 5 - Post Debridement (cm) - Width => 1.3 - Post Debridement (cm) - Depth => 0.1 - Total Square (Post) (cm) => 6.5 - Area of Debridement (cm) - Length => 5 - Area of Debridement (cm) - Width => 1.3 - Total Square (Area) (cm) => 6.5 #1- ABDOMINAL POST OP Superior - Post Debridement (cm) - Length => 4.0 - Post Debridement (cm) - Width => 1.5 - Post Debridement (cm) - Depth => 0.1 - Total Square (Post) (cm) => 6.00 - Area of Debridement (cm) - Length => 4.0 - Area of Debridement (cm) - Width => 1.5 - Total Square (Area) (cm) => 6.00 05/02/23 05/09/23 08:46 09:22 Wound Center Nurse 2 #2 Abdomen Inferior -Time 08:54 09:22 -Correct Patient Yes Yes -Correct Side, Site, Position Yes Yes -Correct Procedure Yes Yes -Procedure Performed Yes Yes -Type of Procedure Debridement Debridement -Clinical Debridement Subcutaneous -Tissue Removed Subcutaneous Subcutaneous -Post Debridement (cm) - Length 5.6 5 -Post Debridement (cm) - Width 0.7 1.3 -Post Debridement (cm) - Depth 0.1 0.1 -Total Square (Post) (cm) 3.92 6.5 -Area of Debridement (cm) - Length 5.6 5 -Area of Debridement (cm) - Width 0.7 1.3 -Total Square (Area) (cm) 3.92 6.5 -Tunneling No No -Undermining/Tunneling No No -Circular Undermining No No -Wound/Ulcer Outcome Not Healed Not Healed -Ulcer Cleansing Rinsed/ Rinsed/ Irrigated with Irrigated with Saline Saline -Foul Odor after Cleansing No No -Bioengineered Tissue No No -Bleeding Controlled with Pressure Pressure -Treatment Response Procedure Procedure Tolerated Well Tolerated Well -Debridement - Subq, 1st 20sq cm No No #1- ABDOMINAL POST OP Superior -Time 08:46 09:25 -Correct Patient Yes Yes -Correct Side, Site, Position Yes Yes -Correct Procedure Yes Yes -Procedure Performed Yes Yes -Type of Procedure Debridement Debridement -Clinical Debridement Subcutaneous Subcutaneous -Tissue Removed Subcutaneous Subcutaneous -Post Debridement (cm) - Length 4.2 4.0 -Post Debridement (cm) - Width 1.6 1.5 -Post Debridement (cm) - Depth 0.1 0.1 -Total Square (Post) (cm) 6.72 6.00 -Area of Debridement (cm) - Length 4.2 4.0 -Area of Debridement (cm) - Width 1.6 1.5 -Total Square (Area) (cm) 6.72 6.00 -Tunneling No No -Undermining/Tunneling No No -Circular Undermining No No -Wound/Ulcer Outcome Not Healed Not Healed -Ulcer Cleansing Rinsed/ Rinsed/ Irrigated with Irrigated with Saline Saline -Foul Odor after Cleansing No No -Bioengineered Tissue No -Bleeding Controlled with Pressure Pressure -Treatment Response Procedure Procedure Tolerated Well Tolerated Well -Debridement - Subq, 1st 20sq cm Yes Yes Pain Scale: 0-10 Numeric Is Patient Pain Free? Yes Yes - Nurse 3 - General Ulcer D/C NN Start: 05/02/23 08:32 Freq: Status: Active Protocol: Activity Type Activity Date Activity User E-sign Co-sign Detail Recorded Client Recorded Date Recorded By Document 05/02/23 09:00 Desktop 05/02/23 09:02 05/02/23 09:00 Wound Care Center Nurse 3 #2 Abdomen Inferior -Ulcer Cleansing Not Cleansed -Foul Odor after Cleansing No -Primary Dressing Applied Fibracol Plus 4x4,NonAdherent Contact Layer -Primary Dressing Covered/Secured with Dry Gauze, Secured with Tape -Fibracol Plus 4x4 1 #1- ABDOMINAL POST OP Superior -Ulcer Cleansing Not Cleansed -Foul Odor after Cleansing No -Other Dressing used remainder of fibracol and adaptic Pain Scale: 0-10 Numeric Is Patient Pain Free? Yes Teaching: Wound Center Dressing Your Wound -Person Taught Patient,Family -Teaching Method Discussion -Response to teaching Verbalize understanding WC - Visit Discharge Discharge Condition Stable Ambulatory Status Ambulatory Transportation Private Auto Medication Reconcilliation completed & Yes provided to patient/care provider Clinical Summary of Care Provided Yes Additional Wound Wound debrided: Abdominal wound (inferior) Type of Debridement: Excisional debridement Anesthesia Used: 5% Lidocaine Gel Depth: Down to and including healthy tissue and in the subcutaneous layer Percentage of wound debrided: 100 Instrument Used: 5mm curette Tissue Removed: Slough and devitalized tissue Severity: Fat Layer Exposed Amount of bleeding with debridement: Mild Bleeding Controlled with: Pressure Patient tolerated procedure: Patient tolerated procedure well Assessment/Plan Assessment/Plan (1) Non-healing surgical wound: CODE(S): T81.89XA - Other complications of procedures, not elsewhere classified, initial encounter (2) S/P colectomy: CODE(S): Z90.49 - Acquired absence of other specified parts of digestive tract (3) Colostomy in place: CODE(S): Z93.3 - Colostomy status (4) Type 2 diabetes mellitus: CODE(S): E11.9 - Type 2 diabetes mellitus without complications (5) Perforation of sigmoid colon due to diverticulitis: CODE(S): K57.20 - Diverticulitis of large intestine with perforation and abscess without bleeding PLAN: Plan Debridement done as documented above, procedure was well-tolerated. Overall, stable. Continue Fibracol daily, cover with Adaptic, gauze/foam dressing. Vaseline to the wound border/edges due to crusting. Continue adequate protein intake, Vitamin C, D and Zinc. Continue optimal diabetes control. Their questions were answered and they were advised to call if they have any further questions or concerns. Patient and voiced understanding. Follow-up in 3 weeks. This note was generated with [employer] software. It may contain incorrect words, spelling, and punctuation that were not noted in checking the note before signing.
== END 2023-05-26 23:59 | disposition home or self-care (01) ==
LOC: WC 09:00
PROVIDERS: PCP Internal Medicine; Referring Provider Internal Medicine; Visit Provider Internal Medicine
DX: T81.89XA Other complications of procedures, not elsewhere classified, initial encounter (principal); Z93.3 Colostomy status; E11.9 Type 2 diabetes mellitus without complications; K57.20 Diverticulitis of large intestine with perforation and abscess without bleeding; Z90.49 Acquired absence of other specified parts of digestive tract
CPT/HCPCS: 11042

== ENCOUNTER 2023-06-20 09:00 | Outpatient (RCR) | payer OTHER, SELFPAY ==
[2023-05-27 00:12] VITALS: BP 147/82; PULSE 87; RESP 18; TEMP 36.3; O2SAT 98; BMI 35.4
[2023-05-30 08:27] VITALS: BP 152/87; PULSE 81; RESP 16; TEMP 36.1; BMI 35.4
--- NOTE | 2023-05-30 09:01 | PN.PCM_ITS ---
History of Present Illness Date of Service: 05/30/23 Chief Complaint: Non healing surgical wound History of Wound: Mr. Duque is a 61 yo who presents here due to non healing surgical wound. History of perforated diverticulitis necessitating partial colectomy and a diverting colostomy. Hospital stay also complicated by intra- abdominal abscess. Following his hospital stay in July, he was admitted at the TCU for rehabilitation at which time he had local wound care with [facility]. Was seen by his general surgeon about a week ago following which he was started on a wound VAC on Saturday. So far tolerating wound VAC well. Progress of Wound: He has no new concerns at this time but states that there has been no change in size since his last visit. He denies increased pain or drainage. No chills, fever or otherwise feeling of unwell. Objective Data Objective Data Vital Signs: Vital Signs Temp Pulse Resp BP Pulse Ox O2 Del Method 97 F L 81 16 152/87 H 98 Room Air 05/30/23 08:27 05/30/23 08:27 05/30/23 08:27 05/30/23 08:27 05/27/23 00:12 05/30/23 08:27 Oxygen Delivery Method Room Air Weight: 233 lb Body Mass Index (BMI) 35.4 Charges/Coding Procedures Integumentary 111xxx-113xx: 27846 Hannah subq tissue 20 sq cm/< Physical Exam Const alert, oriented x3 and no apparent distress General Appearance: cooperative, comfortable and well kempt HEENT normocephalic, head/scalp atraumatic and hearing grossly normal bilaterally Eyes PERRL and EOMs intact bilaterally General Eye: normal appearance of both eyes Neck full ROM and supple General: normal visual inspection Resp normal respiratory effort GI non-tender and non-distended Skin Wounds: wounds noted Neuro oriented x3, CN's II-XII intact bilaterally, moves all extremities and no focal motor deficits Psych mental status grossly normal, thought process normal and cooperative Debridement Note Debridement Note Wound debrided: Abdominal wound (superior) Type of Debridement: Excisional debridement Anesthesia Used: 5% Lidocaine Gel Depth: Down to and including healthy tissue and in the subcutaneous layer Percentage of wound debrided: 100 Instrument Used: 5mm curette Tissue Removed: Slough and vitalized tissue Severity: Fat Layer Exposed Amount of bleeding with debridement: Mild Bleeding Controlled with: Pressure Patient tolerated procedure: Patient tolerated procedure well Post-Debridement Measurements and Additional Note: Post-Debridement Measurements/Treatment - Nurse 1 - General Ulcer Assessment Start: 05/30/23 08:27 Freq: Status: Active Protocol: JUSTIN Activity Type Activity Date Activity User E-sign Co-sign Detail Recorded Client Recorded Date Recorded By Document 05/30/23 08:27 SC Desktop 05/30/23 08:37 SC 05/30/23 08:27 - Today's Visit Information Type of service Follow-up Visit (Physician/ASSEMBLER [employer] ) Arrival Mode Ambulatory Accompanied by letty- Patient Identification Verified (Name & Yes ) Finger Stick Blood Sugar(mg/dl) (if 163 indicated): Blood Sugar Stated by Patient Height and Weight Body Mass Index (BMI) 35.4 BMI Classification Obese Vital Signs Temperature (97.8 F-99.1 F) 97 F L Temperature Source Temporal Pulse Rate (60-100) 81 Pulse Location Monitor Respiratory Rate (12-18) 16 Respiratory rate source Observation Oxygen Delivery Method Room Air Blood Pressure (90/60-120/80) 152/87 H Blood Pressure Mean (mm Hg) 108 Source Monitor Position Sitting Blood Pressure Location Left Arm History Since Last Visit- (Skip if this is Patient's initial visit) Has compression in place as prescribed N/A Has offloadiing in place as prescribed N/A Left Footwear Regular Shoe Right Footwear Regular Shoe Pain Scale: 0-10 Numeric Is Patient Pain Free? Yes - Nurse 1 - General Ulcer Measurement Start: 05/30/23 08:27 Freq: Status: Active Protocol: Activity Type Activity Date Activity User E-sign Co-sign Detail Recorded Client Recorded Date Recorded By Document 05/30/23 08:27 SC [employer] 05/30/23 08:37 SC 05/30/23 08:27 Wound Center Nurse 1 #2 Abdomen Inferior -Current Size (cm) - Length 5.5 -Current Size (cm) - Width 1.0 -Current Size (cm) - Depth 0.1 -Total Square Cm 5.50 -Undermining/Tunneling No -Circular Undermining No -Exudate Amt None Present -Wound Margin Flat & Intact -Granulation Amt Large (67-100%) -Granulation Quality Pale,[place] -Slough/Fibrin No -Texture (Matilde-wound Skin Appearance) Assessed, Scarring -Moisture (Matilde-wound Skin Appearance) Assessed -Color (Matilde-wound Skin Appearance) Assessed -Temperature (Matilde-wound Skin No Abnormality Appearance) (Pt Warm) -Tenderness on Palpation (Matilde-wound No Skin Appearance) -Ulcer Cleansing Rinsed/ Irrigated with Saline -Foul Odor after Cleansing No -Anesthetic Used 5% Lidocaine Gel #1- ABDOMINAL POST OP Superior -Current Size (cm) - Length 3 -Current Size (cm) - Width 2.0 -Current Size (cm) - Depth 0.1 -Total Square Cm 6.0 -Exudate Amt None Present -Wound Margin Flat & Intact -Granulation Amt Large (67-100%) -Granulation Quality Pale,[place] -Slough/Fibrin No -Texture (Matilde-wound Skin Appearance) Assessed -Moisture (Matilde-wound Skin Appearance) Assessed -Color (Matilde-wound Skin Appearance) Assessed -Temperature (Matilde-wound Skin No Abnormality Appearance) (Pt Warm) -Tenderness on Palpation (Matilde-wound No Skin Appearance) -Ulcer Cleansing Rinsed/ Irrigated with Saline -Foul Odor after Cleansing No -Anesthetic Used 5% Lidocaine Gel Lower Limb Edema Present NA WC - Nurse 2 - General Ulcer CM Notes Start: 05/30/23 08:27 Freq: Status: Active Protocol: Activity Type Activity Date Activity User E-sign Co-sign Detail Recorded Client Recorded Date Recorded By Document 05/30/23 08:51 GM Desktop 05/30/23 08:52 GM 05/30/23 08:51 Wound Center Nurse 2 #2 Abdomen Inferior -Time 08:51 -Correct Patient Yes -Correct Side, Site, Position Yes -Correct Procedure Yes -Procedure Performed Yes -Type of Procedure Debridement -Clinical Debridement Subcutaneous -Tissue Removed Subcutaneous -Tunneling No -Undermining/Tunneling No -Circular Undermining No -Wound/Ulcer Outcome Not Healed -Ulcer Cleansing Rinsed/ Irrigated with Saline -Foul Odor after Cleansing No -Bioengineered Tissue No -Bleeding Controlled with Pressure -Treatment Response Procedure Tolerated Well -Debridement - Subq, 1st 20sq cm Yes #1- ABDOMINAL POST OP Superior -Time 08:51 -Correct Patient Yes -Correct Side, Site, Position Yes -Correct Procedure Yes -Procedure Performed Yes -Type of Procedure Debridement -Clinical Debridement Subcutaneous -Tissue Removed Subcutaneous -Tunneling No -Undermining/Tunneling No -Circular Undermining No -Wound/Ulcer Outcome Not Healed -Ulcer Cleansing Rinsed/ Irrigated with Saline -Foul Odor after Cleansing No -Bioengineered Tissue No -Bleeding Controlled with Pressure -Treatment Response Procedure Tolerated Well -Debridement - Subq, 1st 20sq cm No Pain Scale: 0-10 Numeric Is Patient Pain Free? Yes Additional Wound Wound debrided: Abdominal wound (inferior) Type of Debridement: Excisional debridement Anesthesia Used: 5% Lidocaine Gel Depth: Down to and including healthy tissue and in the subcutaneous layer Percentage of wound debrided: 100 Instrument Used: 5mm curette Tissue Removed: Slough and devitalized tissue Severity: Fat Layer Exposed Amount of bleeding with debridement: Mild Bleeding Controlled with: Pressure Patient tolerated procedure: Patient tolerated procedure well Assessment/Plan Assessment/Plan (1) Non-healing surgical wound: CODE(S): T81.89XA - Other complications of procedures, not elsewhere classified, initial encounter (2) S/P colectomy: CODE(S): Z90.49 - Acquired absence of other specified parts of digestive tract (3) Colostomy in place: CODE(S): Z93.3 - Colostomy status (4) Type 2 diabetes mellitus: CODE(S): E11.9 - Type 2 diabetes mellitus without complications (5) Perforation of sigmoid colon due to diverticulitis: CODE(S): K57.20 - Diverticulitis of large intestine with perforation and abscess without bleeding PLAN: Plan Debridement done as documented above, procedure was well-tolerated. Stable superior wound however inferior with some worsening and now clustered as well. Cultures taken. Switch to Promogran daily, cover with Adaptic. Continue adequate protein intake, Vitamin C, D and Zinc. Continue optimal diabetes control. Their questions were answered and they were advised to call if they have any further questions or concerns. Patient and voiced understanding. Follow-up in 1 week. This note was generated with [employer] dictation software. It may contain incorrect words, spelling, and punctuation that were not noted in checking the note before signing.
[2023-06-06 08:42] VITALS: BP 165/80; PULSE 88; RESP 16; TEMP 36.9; BMI 35.4
--- NOTE | 2023-06-06 09:32 | PCM.WC.PN ---
History of Present Illness Date of Service: 06/06/23 Chief Complaint: Non healing surgical wound History of Wound: Mr. Duque is a 61 yo who presents here due to non healing surgical wound. History of perforated diverticulitis necessitating partial colectomy and a diverting colostomy. Hospital stay also complicated by intra-abdominal abscess. Following his hospital stay in July, he was admitted at the TCU for rehabilitation at which time he had local wound care with [facility]. Was seen by his general surgeon about a week ago following which he was started on a wound VAC on Saturday. So far tolerating wound VAC well. Progress of Wound: No new concerns at this time. Cultures done last week with rare growth of staph epidermis possibly skin contaminant. Application for TheraSkin has been started, yet to get a response. Objective Data Objective Data Vital Signs: Vital Signs Temp Pulse Resp BP Pulse Ox O2 Del Method 98.4 F 88 16 165/80 H 98 Room Air 06/06/23 08:42 06/06/23 08:42 06/06/23 08:42 06/06/23 08:42 05/27/23 00:12 06/06/23 08:42 Oxygen Delivery Method Room Air Weight: 233 lb Body Mass Index (BMI) 35.4 Lab / Micro Data Micro: Microbiology 05/30/23 08:55 Wound - Abdominal Gram Stain - Final 05/30/23 08:55 Wound - Abdominal Wound Culture - Final Staphylococcus epidermidis 05/30/23 08:55 Wound - Abdominal Anaerobic Culture - Final No anaerobic bacteria isolated. Charges/Coding Procedures Integumentary 111xxx-113xx: 08833 Hannah subq tissue 20 sq cm/< Physical Exam Const alert, oriented x3 and no apparent distress General Appearance: cooperative, comfortable and well kempt HEENT normocephalic, head/scalp atraumatic and hearing grossly normal bilaterally Eyes PERRL and EOMs intact bilaterally General Eye: normal appearance of both eyes Neck full ROM and supple General: normal visual inspection Resp normal respiratory effort GI non-tender and non-distended Skin Wounds: wounds noted Neuro oriented x3, CN's II-XII intact bilaterally, moves all extremities and no focal motor deficits Psych mental status grossly normal, thought process normal and cooperative Debridement Note Debridement Note Wound debrided: Abdominal wound (superior) Type of Debridement: Excisional debridement Anesthesia Used: 5% Lidocaine Gel Depth: Down to and including healthy tissue and in the subcutaneous layer Percentage of wound debrided: 100 Instrument Used: 5mm curette Tissue Removed: Slough and vitalized tissue Severity: Fat Layer Exposed Amount of bleeding with debridement: Mild Bleeding Controlled with: Pressure Patient tolerated procedure: Patient tolerated procedure well Post-Debridement Measurements and Additional Note: Post-Debridement Measurements/Treatment [id number] - Nurse 1 - General Ulcer Assessment Start: 05/30/23 08:27 Freq: Status: Active Protocol: JUSTIN Activity Type Activity Date Activity User E-sign Co-sign Detail Recorded Client Recorded Date Recorded By Document 05/30/23 08:27 MT Desktop 05/30/23 08:37 MT Document 06/06/23 08:42 CP Desktop 06/06/23 08:49 CP 05/30/23 06/06/23 08:27 08:42 - Today's Visit Information Type of service Follow-up Visit Follow-up Visit (Physician/CHAIR CANER (Physician/CHAIR CANER ) ) Arrival Mode Ambulatory Ambulatory Accompanied by letty- Patient Identification Verified (Name & Yes Yes ) Finger Stick Blood Sugar(mg/dl) (if 163 indicated): Blood Sugar Stated by Patient Height and Weight Body Mass Index (BMI) 35.4 35.4 BMI Classification Obese Obese Vital Signs Temperature (97.8 F-99.1 F) 97 F L 98.4 F Temperature Source Temporal Temporal Pulse Rate (60-100) 81 88 Pulse Location Monitor Monitor Respiratory Rate (12-18) 16 16 Respiratory rate source Observation Observation Oxygen Delivery Method Room Air Room Air Blood Pressure (90/60-120/80) 152/87 H 165/80 H Blood Pressure Mean (mm Hg) 108 108 Source Monitor Monitor Position Sitting Sitting Blood Pressure Location Left Arm Left Arm History Since Last Visit- (Skip if this is Patient's initial visit) Have you changed medications since your No last visit? Any new allergies or adverse reactions No Had a fall/change in ADL's that may No increase risk of falls Signs or symptoms of abuse and/or No neglect since last visit Have you been in the hospital since your No last visit? Has dressing in place as prescribed Yes Has compression in place as prescribed N/A N/A Has offloadiing in place as prescribed N/A N/A Experienced any changes in pain level or No management Left Footwear Regular Shoe Right Footwear Regular Shoe Pain Scale: 0-10 Numeric Is Patient Pain Free? Yes Yes WC - Nurse 1 - General Ulcer Measurement Start: 05/30/23 08:27 Freq: Status: Active Protocol: Activity Type Activity Date Activity User E-sign Co-sign Detail Recorded Client Recorded Date Recorded By Document 05/30/23 08:27 MT Desktop 05/30/23 08:37 MT Document 06/06/23 08:42 CP Desktop 06/06/23 08:49 CP 05/30/23 06/06/23 08:27 08:42 Wound Center Nurse 1 #2 Abdomen Inferior -Current Size (cm) - Length 5.5 6.5 -Current Size (cm) - Width 1.0 0.5 -Current Size (cm) - Depth 0.1 0.1 -Total Square Cm 5.50 3.25 -Photo Taken Yes -Epithelialization Medium 34-66% -Tunneling No -Undermining/Tunneling No No -Circular Undermining No No -Exudate Amt None Present Small -Exudate Type Serous -Wound Margin Flat & Intact Flat & Intact -Granulation Amt Large (67-100%) Large (67-100%) -Granulation Quality Pale,[place] -Slough/Fibrin No Yes -Necrosis Amt Small (1-33%) -Necrotic Tissue Type Adherent Slough -Structure Exposed N/A -Texture (Matilde-wound Skin Appearance) Assessed, No Abnormality Scarring -Moisture (Matilde-wound Skin Appearance) Assessed Dry/Scaly -Color (Matilde-wound Skin Appearance) Assessed No Abnormality -Temperature (Matilde-wound Skin No Abnormality No Abnormality Appearance) (Pt Warm) (Pt Warm) -Tenderness on Palpation (Matilde-wound No No Skin Appearance) -Ulcer Cleansing Rinsed/ Rinsed/ Irrigated with Irrigated with Saline Saline -Foul Odor after Cleansing No No -Anesthetic Used 5% Lidocaine 5% Lidocaine Gel Gel #1- ABDOMINAL POST OP Superior -Current Size (cm) - Length 3 3.4 -Current Size (cm) - Width 2.0 1.8 -Current Size (cm) - Depth 0.1 0.1 -Total Square Cm 6.0 6.12 -Photo Taken Yes -Epithelialization Medium 34-66% -Tunneling No -Undermining/Tunneling No -Circular Undermining No -Exudate Amt None Present Small -Exudate Type Serous -Wound Margin Flat & Intact Flat & Intact -Granulation Amt Large (67-100%) Large (67-100%) -Granulation Quality Pale,[place] -Slough/Fibrin No Yes -Necrosis Amt Small (1-33%) -Necrotic Tissue Type Adherent Slough -Structure Exposed N/A -Texture (Matilde-wound Skin Appearance) Assessed No Abnormality -Moisture (Matilde-wound Skin Appearance) Assessed Dry/Scaly -Color (Matilde-wound Skin Appearance) Assessed No Abnormality -Temperature (Matilde-wound Skin No Abnormality No Abnormality Appearance) (Pt Warm) (Pt Warm) -Tenderness on Palpation (Matilde-wound No No Skin Appearance) -Ulcer Cleansing Rinsed/ Rinsed/ Irrigated with Irrigated with Saline Saline -Foul Odor after Cleansing No No -Anesthetic Used 5% Lidocaine 5% Lidocaine Gel Gel Lower Limb Edema Present NA WC - Nurse 2 - General Ulcer CM Notes Start: 05/30/23 08:27 Freq: Status: Active Protocol: Activity Type Activity Date Activity User E-sign Co-sign Detail Recorded Client Recorded Date Recorded By Document 05/30/23 08:51 GM Desktop 05/30/23 08:52 GM Edit Result 05/30/23 08:51 GM (1) Desktop 05/30/23 09:02 GM Document 06/06/23 09:20 GM Desktop 06/06/23 09:26 GM (1) #2 Abdomen Inferior - Post Debridement (cm) - Length => 7 - Post Debridement (cm) - Width => 0.7 - Post Debridement (cm) - Depth => 0.1 - Total Square (Post) (cm) => 4.9 - Area of Debridement (cm) - Length => 7 - Area of Debridement (cm) - Width => 0.7 - Total Square (Area) (cm) => 4.9 #1- ABDOMINAL POST OP Superior - Post Debridement (cm) - Length => 3 - Post Debridement (cm) - Width => 2.0 - Post Debridement (cm) - Depth => 0.1 - Total Square (Post) (cm) => 6.0 - Area of Debridement (cm) - Length => 3 - Area of Debridement (cm) - Width => 2 - Total Square (Area) (cm) => 6 05/30/23 06/06/23 08:51 09:20 Wound Center Nurse 2 #2 Abdomen Inferior -Time 08:51 09:20 -Correct Patient Yes Yes -Correct Side, Site, Position Yes Yes -Correct Procedure Yes Yes -Procedure Performed Yes Yes -Type of Procedure Debridement Debridement -Clinical Debridement Subcutaneous Subcutaneous -Tissue Removed Subcutaneous Subcutaneous -Post Debridement (cm) - Length 7 5.5 -Post Debridement (cm) - Width 0.7 1.5 -Post Debridement (cm) - Depth 0.1 0.1 -Total Square (Post) (cm) 4.9 8.25 -Area of Debridement (cm) - Length 7 5.5 -Area of Debridement (cm) - Width 0.7 1.5 -Total Square (Area) (cm) 4.9 8.25 -Tunneling No No -Undermining/Tunneling No No -Circular Undermining No No -Wound/Ulcer Outcome Not Healed Not Healed -Ulcer Cleansing Rinsed/ Rinsed/ Irrigated with Irrigated with Saline Saline -Foul Odor after Cleansing No No -Bioengineered Tissue No No -Bleeding Controlled with Pressure Pressure -Treatment Response Procedure Procedure Tolerated Well Tolerated Well -Debridement - Subq, 1st 20sq cm Yes Yes #1- ABDOMINAL POST OP Superior -Time 08:51 09:21 -Correct Patient Yes Yes -Correct Side, Site, Position Yes Yes -Correct Procedure Yes Yes -Procedure Performed Yes Yes -Type of Procedure Debridement Debridement -Clinical Debridement Subcutaneous Subcutaneous -Tissue Removed Subcutaneous Subcutaneous -Post Debridement (cm) - Length 3 2.9 -Post Debridement (cm) - Width 2.0 1.6 -Post Debridement (cm) - Depth 0.1 0.1 -Total Square (Post) (cm) 6.0 4.64 -Area of Debridement (cm) - Length 3 2.9 -Area of Debridement (cm) - Width 2 1.6 -Total Square (Area) (cm) 6 4.64 -Tunneling No No -Undermining/Tunneling No No -Circular Undermining No No -Wound/Ulcer Outcome Not Healed Not Healed -Ulcer Cleansing Rinsed/ Rinsed/ Irrigated with Irrigated with Saline Saline -Foul Odor after Cleansing No No -Bioengineered Tissue No No -Bleeding Controlled with Pressure Pressure -Treatment Response Procedure Procedure Tolerated Well Tolerated Well -Debridement - Subq, 1st 20sq cm No No Pain Scale: 0-10 Numeric Is Patient Pain Free? Yes Yes WC - Nurse 3 - General Ulcer D/C NN Start: 05/30/23 08:27 Freq: Status: Active Protocol: Activity Type Activity Date Activity User E-sign Co-sign Detail Recorded Client Recorded Date Recorded By Document 05/30/23 09:02 Desktop 05/30/23 09:04 05/30/23 09:02 Wound Care Center Nurse 3 #2 Abdomen Inferior -Ulcer Cleansing Not Cleansed -Foul Odor after Cleansing No -Primary Dressing Applied NonAdherent Contact Layer, Promogran -Primary Dressing Covered/Secured with Dry Gauze, Secured with Tape -Promogran 1 #1- ABDOMINAL POST OP Superior -Ulcer Cleansing Not Cleansed -Foul Odor after Cleansing No -Primary Dressing Applied Promogran -Promogran 1 Pain Scale: 0-10 Numeric Is Patient Pain Free? Yes Teaching: Wound Center Dressing Your Wound -Person Taught Patient,Family -Teaching Method Discussion, Demonstration -Response to teaching Verbalize understanding WC - Visit Discharge Discharge Condition Stable Ambulatory Status Ambulatory Transportation Private Auto Clinical Summary of Care Provided Yes Additional Wound Wound debrided: Abdominal wound (inferior) Type of Debridement: Excisional debridement Anesthesia Used: 5% Lidocaine Gel Depth: Down to and including healthy tissue and in the subcutaneous layer Percentage of wound debrided: 100 Instrument Used: 5mm curette Tissue Removed: Slough and devitalized tissue Severity: Fat Layer Exposed Amount of bleeding with debridement: Mild Bleeding Controlled with: Pressure Patient tolerated procedure: Patient tolerated procedure well Assessment/Plan Assessment/Plan (1) Non-healing surgical wound: CODE(S): T81.89XA - Other complications of procedures, not elsewhere classified, initial encounter (2) S/P colectomy: CODE(S): Z90.49 - Acquired absence of other specified parts of digestive tract (3) Colostomy in place: CODE(S): Z93.3 - Colostomy status (4) Type 2 diabetes mellitus: CODE(S): E11.9 - Type 2 diabetes mellitus without complications (5) Perforation of sigmoid colon due to diverticulitis: CODE(S): K57.20 - Diverticulitis of large intestine with perforation and abscess without bleeding PLAN: Plan Debridement done as documented above, procedure was well-tolerated. Some improvement noted. Cultures with rare growth/possible skin contaminant. Continue Promogran daily, cover with Adaptic. Continue adequate protein intake, Vitamin C, D and Zinc. Continue optimal diabetes control. Their questions were answered and they were advised to call if they have any further questions or concerns. Patient and voiced understanding. Follow-up in 2 weeks. This note was generated with [employer] dictation software. It may contain incorrect words, spelling, and punctuation that were not noted in checking the note before signing.
[2023-06-13 08:50] VITALS: BP 174/87; PULSE 80; RESP 18; TEMP 36.3; BMI 35.4
--- NOTE | 2023-06-13 09:48 | PCM.WC.PN ---
History of Present Illness Date of Service: 06/13/23 Chief Complaint: Non healing surgical wound History of Wound: Mr. Duque is a 61 yo who presents here due to non healing surgical wound. History of perforated diverticulitis necessitating partial colectomy and a diverting colostomy. Hospital stay also complicated by intra-abdominal abscess. Following his hospital stay in July, he was admitted at the [facility]CU for rehabilitation at which time he had local wound care with [facility]. Was seen by his general surgeon about a week ago following which he was started on a wound VAC on Saturday. So far tolerating wound VAC well. Progress of Wound: No new concerns at this time. No significant drainage or pain reported. Objective Data Objective Data Vital Signs: Vital Signs Temp Pulse Resp BP Pulse Ox O2 Del Method 97.3 F L 80 18 174/87 H 98 Room Air 06/13/23 08:50 06/13/23 08:50 06/13/23 08:50 06/13/23 08:50 05/27/23 00:12 06/06/23 08:42 Oxygen Delivery Method Room Air Weight: 233 lb Body Mass Index (BMI) 35.4 Lab / Micro Data Micro: Microbiology 05/30/23 08:55 Wound - Abdominal Gram Stain - Final 05/30/23 08:55 Wound - Abdominal Wound Culture - Final Staphylococcus epidermidis 05/30/23 08:55 Wound - Abdominal Anaerobic Culture - Final No anaerobic bacteria isolated. Charges/Coding Procedures Integumentary 150xxx-152xx: 41108 Skin sub graft trnk/arm/leg Physical Exam Const alert, oriented x3 and no apparent distress General Appearance: cooperative, comfortable and well kempt HEENT normocephalic, head/scalp atraumatic and hearing grossly normal bilaterally Eyes PERRL and EOMs intact bilaterally General Eye: normal appearance of both eyes Neck full ROM and supple General: normal visual inspection Resp normal respiratory effort GI non-tender and non-distended Skin Wounds: wounds noted Neuro oriented x3, CN's II-XII intact bilaterally, moves all extremities and no focal motor deficits Psych mental status grossly normal, thought process normal and cooperative Debridement Note Debridement Note Wound debrided: Abdominal wound (superior) Type of Debridement: Excisional debridement Anesthesia Used: 5% Lidocaine Gel Depth: Down to and including healthy tissue and in the subcutaneous layer Percentage of wound debrided: 100 Instrument Used: 5mm curette Tissue Removed: Slough and vitalized tissue Severity: Fat Layer Exposed Amount of bleeding with debridement: Mild Bleeding Controlled with: Pressure Patient tolerated procedure: Patient tolerated procedure well Post-Debridement Measurements and Additional Note: Post-Debridement Measurements/Treatment - Nurse 1 - General Ulcer Assessment Start: 05/30/23 08:27 Freq: Status: Active Protocol: JUSTIN Activity Type Activity Date Activity User E-sign Co-sign Detail Recorded Client Recorded Date Recorded By Document 05/30/23 08:27 MT Desktop 05/30/23 08:37 MT Document 06/06/23 08:42 CP Desktop 06/06/23 08:49 CP Document 06/13/23 08:50 RB Desktop 06/13/23 08:52 RB 05/30/23 06/06/23 06/13/23 08:27 08:42 08:50 - Today's Visit Information Type of service Follow-up Visit Follow-up Visit Follow-up Visit (Physician/GATE SHEAR OPERATOR (Physician/GATE SHEAR OPERATOR (Physician/GATE SHEAR OPERATOR ) ) ) Arrival Mode Ambulatory Ambulatory Ambulatory Transfer Assistance None Accompanied by letty- Patient Identification Verified (Name & Yes Yes Yes ) Patient Requires Transmission-Based No Precautions Finger Stick Blood Sugar(mg/dl) (if 163 indicated): Blood Sugar Stated by Patient Height and Weight Body Mass Index (BMI) 35.4 35.4 35.4 BMI Classification Obese Obese Obese Vital Signs Temperature (97.8 F-99.1 F) 97 F L 98.4 F 97.3 F L Temperature Source Temporal Temporal Temporal Pulse Rate (60-100) 81 88 80 Pulse Location Monitor Monitor Monitor Respiratory Rate (12-18) 16 16 18 Respiratory rate source Observation Observation Observation Oxygen Delivery Method Room Air Room Air Blood Pressure (90/60-120/80) 152/87 H 165/80 H 174/87 H Blood Pressure Mean (mm Hg) 108 108 116 Source Monitor Monitor Monitor Position Sitting Sitting Semi-Fowlers Blood Pressure Location Left Arm Left Arm Left Arm History Since Last Visit- (Skip if this is Patient's initial visit) Have you changed medications since your No No last visit? Any new allergies or adverse reactions No No Had a fall/change in ADL's that may No No increase risk of falls Signs or symptoms of abuse and/or No No neglect since last visit Have you been in the hospital since your No No last visit? Has dressing in place as prescribed Yes Yes Has compression in place as prescribed N/A N/A No Has offloadiing in place as prescribed N/A N/A No Experienced any changes in pain level or No No management Left Footwear Regular Shoe Right Footwear Regular Shoe Pain Scale: 0-10 Numeric Is Patient Pain Free? Yes Yes Yes WC - Nurse 1 - General Ulcer Measurement Start: 05/30/23 08:27 Freq: Status: Active Protocol: Activity Type Activity Date Activity User E-sign Co-sign Detail Recorded Client Recorded Date Recorded By Document 05/30/23 08:27 MT Desktop 05/30/23 08:37 MT Document 06/06/23 08:42 CP Desktop 06/06/23 08:49 CP Document 06/13/23 08:50 RB Desktop 06/13/23 08:52 RB 05/30/23 06/06/23 06/13/23 08:27 08:42 08:50 Wound Center Nurse 1 #2 Abdomen Inferior -Combined with other wound No -Current Size (cm) - Length 5.5 6.5 5 -Current Size (cm) - Width 1.0 0.5 1.2 -Current Size (cm) - Depth 0.1 0.1 0.1 -Total Square Cm 5.50 3.25 6.0 -Photo Taken Yes -Epithelialization Medium 34-66% -Tunneling No No -Undermining/Tunneling No No No -Circular Undermining No No No -Exudate Amt None Present Small Medium -Exudate Type Serous Serosanguineous -Wound Margin Flat & Intact Flat & Intact Distinct, Outline Attached -Granulation Amt Large (67-100%) Large (67-100%) Medium (34-66%) -Granulation Quality Pale,Theba Theba Theba -Slough/Fibrin No Yes Yes -Necrosis Amt Small (1-33%) Medium (34-66%) -Necrotic Tissue Type Adherent Slough Adherent Slough -Structure Exposed N/A N/A -Texture (Matilde-wound Skin Appearance) Assessed, No Abnormality Assessed, Scarring Scarring -Moisture (Matilde-wound Skin Appearance) Assessed Dry/Scaly Assessed -Color (Matilde-wound Skin Appearance) Assessed No Abnormality Assessed -Temperature (Matilde-wound Skin No Abnormality No Abnormality No Abnormality Appearance) (Pt Warm) (Pt Warm) (Pt Warm) -Tenderness on Palpation (Matilde-wound No No No Skin Appearance) -Ulcer Cleansing Rinsed/ Rinsed/ Wound Cleanser Irrigated with Irrigated with Saline Saline -Foul Odor after Cleansing No No No -Anesthetic Used 5% Lidocaine 5% Lidocaine 5% Lidocaine Gel Gel Gel #1- ABDOMINAL POST OP Superior -Combined with other wound No -Current Size (cm) - Length 3 3.4 3 -Current Size (cm) - Width 2.0 1.8 2 -Current Size (cm) - Depth 0.1 0.1 0.1 -Total Square Cm 6.0 6.12 6 -Photo Taken Yes -Epithelialization Medium 34-66% -Tunneling No No -Undermining/Tunneling No No -Circular Undermining No No -Exudate Amt None Present Small Medium -Exudate Type Serous Serosanguineous -Wound Margin Flat & Intact Flat & Intact Distinct, Outline Attached -Granulation Amt Large (67-100%) Large (67-100%) Medium (34-66%) -Granulation Quality Pale,Theba Theba Theba -Slough/Fibrin No Yes Yes -Necrosis Amt Small (1-33%) Medium (34-66%) -Necrotic Tissue Type Adherent Slough Adherent Slough -Structure Exposed N/A N/A -Texture (Matilde-wound Skin Appearance) Assessed No Abnormality Assessed, Scarring -Moisture (Matilde-wound Skin Appearance) Assessed Dry/Scaly Assessed -Color (Matilde-wound Skin Appearance) Assessed No Abnormality Assessed -Temperature (Matilde-wound Skin No Abnormality No Abnormality No Abnormality Appearance) (Pt Warm) (Pt Warm) (Pt Warm) -Tenderness on Palpation (Matilde-wound No No No Skin Appearance) -Ulcer Cleansing Rinsed/ Rinsed/ Wound Cleanser Irrigated with Irrigated with Saline Saline -Foul Odor after Cleansing No No No -Anesthetic Used 5% Lidocaine 5% Lidocaine 5% Lidocaine Gel Gel Gel Lower Limb Edema Present NA WC - Nurse 2 - General Ulcer CM Notes Start: 05/30/23 08:27 Freq: Status: Active Protocol: Activity Type Activity Date Activity User E-sign Co-sign Detail Recorded Client Recorded Date Recorded By Document 05/30/23 08:51 GM Desktop 05/30/23 08:52 GM Edit Result 05/30/23 08:51 GM (1) Desktop 05/30/23 09:02 GM Document 06/06/23 09:20 GM Desktop 06/06/23 09:26 GM Document 06/13/23 09:07 GM Desktop 06/13/23 09:14 GM (1) #2 Abdomen Inferior - Post Debridement (cm) - Length => 7 - Post Debridement (cm) - Width => 0.7 - Post Debridement (cm) - Depth => 0.1 - Total Square (Post) (cm) => 4.9 - Area of Debridement (cm) - Length => 7 - Area of Debridement (cm) - Width => 0.7 - Total Square (Area) (cm) => 4.9 #1- ABDOMINAL POST OP Superior - Post Debridement (cm) - Length => 3 - Post Debridement (cm) - Width => 2.0 - Post Debridement (cm) - Depth => 0.1 - Total Square (Post) (cm) => 6.0 - Area of Debridement (cm) - Length => 3 - Area of Debridement (cm) - Width => 2 - Total Square (Area) (cm) => 6 05/30/23 06/06/23 06/13/23 08:51 09:20 09:07 Wound Center Nurse 2 #2 Abdomen Inferior -Time 08:51 09:20 09:08 -Correct Patient Yes Yes Yes -Correct Side, Site, Position Yes Yes Yes -Correct Procedure Yes Yes Yes -Procedure Performed Yes Yes Yes -Type of Procedure Debridement Debridement Debridement -Clinical Debridement Subcutaneous Subcutaneous Subcutaneous -Tissue Removed Subcutaneous Subcutaneous Subcutaneous -Post Debridement (cm) - Length 7 5.5 5.5 -Post Debridement (cm) - Width 0.7 1.5 1.2 -Post Debridement (cm) - Depth 0.1 0.1 0.1 -Total Square (Post) (cm) 4.9 8.25 6.60 -Area of Debridement (cm) - Length 7 5.5 5.5 -Area of Debridement (cm) - Width 0.7 1.5 1.2 -Total Square (Area) (cm) 4.9 8.25 6.60 -Tunneling No No No -Undermining/Tunneling No No No -Circular Undermining No No No -Wound/Ulcer Outcome Not Healed Not Healed Not Healed -Ulcer Cleansing Rinsed/ Rinsed/ Rinsed/ Irrigated with Irrigated with Irrigated with Saline Saline Saline -Foul Odor after Cleansing No No No -Bioengineered Tissue No No Yes -Type of Bioengineered Tissue [employer] -Expiration Date 10/16/27 -Product Lot Number [id number] -Percent Used 100 -Lot number of Saline Used [id number] -Bleeding Controlled with Pressure Pressure Pressure -Treatment Response Procedure Procedure Procedure Tolerated Well Tolerated Well Tolerated Well -Debridement - Subq, 1st 20sq cm Yes Yes Yes #1- ABDOMINAL POST OP Superior -Time 08:51 09:21 09:12 -Correct Patient Yes Yes Yes -Correct Side, Site, Position Yes Yes Yes -Correct Procedure Yes Yes Yes -Procedure Performed Yes Yes Yes -Type of Procedure Debridement Debridement Debridement -Clinical Debridement Subcutaneous Subcutaneous Subcutaneous -Tissue Removed Subcutaneous Subcutaneous Subcutaneous -Post Debridement (cm) - Length 3 2.9 3.5 -Post Debridement (cm) - Width 2.0 1.6 1.5 -Post Debridement (cm) - Depth 0.1 0.1 0.1 -Total Square (Post) (cm) 6.0 4.64 5.25 -Area of Debridement (cm) - Length 3 2.9 3.5 -Area of Debridement (cm) - Width 2 1.6 1.5 -Total Square (Area) (cm) 6 4.64 5.25 -Tunneling No No No -Undermining/Tunneling No No No -Circular Undermining No No No -Wound/Ulcer Outcome Not Healed Not Healed Not Healed -Ulcer Cleansing Rinsed/ Rinsed/ Rinsed/ Irrigated with Irrigated with Irrigated with Saline Saline Saline -Foul Odor after Cleansing No No No -Bioengineered Tissue No No Yes -Type of Bioengineered Tissue [employer]in -Expiration Date 10/16/27 -Product Lot Number [id number] -Percent Used 100 -Lot number of Saline Used [id number] -Bleeding Controlled with Pressure Pressure Pressure -Treatment Response Procedure Procedure Procedure Tolerated Well Tolerated Well Tolerated Well -Debridement - Subq, 1st 20sq cm No No No Pain Scale: 0-10 Numeric Is Patient Pain Free? Yes Yes Yes WC - Nurse 3 - General Ulcer D/C NN Start: 05/30/23 08:27 Freq: Status: Active Protocol: Activity Type Activity Date Activity User E-sign Co-sign Detail Recorded Client Recorded Date Recorded By Document 05/30/23 09:02 Desktop 05/30/23 09:04 GM Document 06/06/23 09:36 Desktop 06/06/23 09:38 GM Document 06/13/23 09:24 Desktop 06/13/23 09:25 05/30/23 06/06/23 06/13/23 09:02 09:36 09:24 Wound Care Center Nurse 3 #2 Abdomen Inferior -Ulcer Cleansing Not Cleansed Not Cleansed -Foul Odor after Cleansing No No -Primary Dressing Applied NonAdherent Promogran Aquacel Extra Contact Layer, Promogran -Other Dressing abd -Primary Dressing Covered/Secured with Dry Gauze, Dry Gauze, Dry Gauze Secured with Secured with Tape Tape -Aquacel Extra 1 -Promogran 1 3 #1- ABDOMINAL POST OP Superior -Ulcer Cleansing Not Cleansed -Foul Odor after Cleansing No -Primary Dressing Applied Promogran -Other Dressing aquacel extra/ ABD -Primary Dressing Covered/Secured with Secured with Tape -Promogran 1 Treatment Response Procedure Tolerated Well Pain Scale: 0-10 Numeric Is Patient Pain Free? Yes Yes Yes Teaching: Wound Center Dressing Your Wound -Person Taught Patient,Family Patient -Teaching Method Discussion, Discussion Demonstration -Response to teaching Verbalize Verbalize understanding understanding WC - Visit Discharge Discharge Condition Stable Stable Stable Ambulatory Status Ambulatory Ambulatory Ambulatory Transportation Private Auto Private Auto Private Auto Medication Reconcilliation completed & No provided to patient/care provider Clinical Summary of Care Provided Yes Yes Yes Additional Wound Wound debrided: Abdominal wound (inferior) Type of Debridement: Excisional debridement Anesthesia Used: 5% Lidocaine Gel Depth: Down to and including healthy tissue and in the subcutaneous layer Percentage of wound debrided: 100 Instrument Used: 5mm curette Tissue Removed: Slough and devitalized tissue Severity: Fat Layer Exposed Amount of bleeding with debridement: Mild Bleeding Controlled with: Pressure Patient tolerated procedure: Patient tolerated procedure well Assessment/Plan Assessment/Plan (1) Non-healing surgical wound: CODE(S): T81.89XA - Other complications of procedures, not elsewhere classified, initial encounter (2) S/P colectomy: CODE(S): Z90.49 - Acquired absence of other specified parts of digestive tract (3) Colostomy in place: CODE(S): Z93.3 - Colostomy status (4) Type 2 diabetes mellitus: CODE(S): E11.9 - Type 2 diabetes mellitus without complications (5) Perforation of sigmoid colon due to diverticulitis: CODE(S): K57.20 - Diverticulitis of large intestine with perforation and abscess without bleeding PLAN: Plan Debridement done as documented above, procedure was well-tolerated. Sample application of TheraSkin applied today using 100% of product. Covered with wound veil and secured with Steri-Strips. Possibly leave in place for 2 weeks however follow-up next week. Aquacel and ABD over top, they were advised that they could change outer dressings if soaked. Continue adequate protein intake, Vitamin C, D and Zinc. Continue optimal diabetes control. Their questions were answered and they were advised to call if they have any further questions or concerns. Patient and voiced understanding. Follow-up in 2 weeks. This note was generated with [facility] dictation software. It may contain incorrect words, spelling, and punctuation that were not noted in checking the note before signing.
[2023-06-20 08:51] VITALS: BP 163/80; PULSE 82; RESP 18; TEMP 36.4; BMI 35.4
--- NOTE | 2023-06-20 09:46 | PCM.WC.PN ---
History of Present Illness Date of Service: 06/20/23 Chief Complaint: Non healing surgical wound History of Wound: Mr. Duque is a 61 yo who presents here due to non healing surgical wound. History of perforated diverticulitis necessitating partial colectomy and a diverting colostomy. Hospital stay also complicated by intra-abdominal abscess. Following his hospital stay in July, he was admitted at the [facility]CU for rehabilitation at which time he had local wound care with [facility]. Was seen by his general surgeon about a week ago following which he was started on a wound VAC on Saturday. So far tolerating wound VAC well. Progress of Wound: No new concerns at this time. Had 1 application of TheraSkin last week. Still intact. No significant drainage. Objective Data Objective Data Vital Signs: Vital Signs Temp Pulse Resp BP Pulse Ox O2 Del Method 97.6 F L 82 18 163/80 H 98 Room Air 06/20/23 08:51 06/20/23 08:51 06/20/23 08:51 06/20/23 08:51 05/27/23 00:12 06/20/23 08:51 Oxygen Delivery Method Room Air Weight: 233 lb Body Mass Index (BMI) 35.4 Lab / Micro Data Micro: Microbiology 05/30/23 08:55 Wound - Abdominal Gram Stain - Final 05/30/23 08:55 Wound - Abdominal Wound Culture - Final Staphylococcus epidermidis 05/30/23 08:55 Wound - Abdominal Anaerobic Culture - Final No anaerobic bacteria isolated. Charges/Coding Visit Charges Office Visits / Consults: [id number] OV L3 Est 20min Physical Exam Const alert, oriented x3 and no apparent distress General Appearance: cooperative, comfortable and well kempt HEENT normocephalic, head/scalp atraumatic and hearing grossly normal bilaterally Eyes PERRL and EOMs intact bilaterally General Eye: normal appearance of both eyes Neck full ROM and supple General: normal visual inspection Resp normal respiratory effort GI non-tender and non-distended Skin Wounds: wounds noted Neuro oriented x3, CN's II-XII intact bilaterally, moves all extremities and no focal motor deficits Psych mental status grossly normal, thought process normal and cooperative Debridement Note Debridement Note Post-Debridement Measurements and Additional Note: Post-Debridement Measurements/Treatment WC - Nurse 1 - General Ulcer Assessment Start: 05/30/23 08:27 Freq: Status: Active Protocol: [email or web address] Activity Type Activity Date Activity User E-sign Co-sign Detail Recorded Client Recorded Date Recorded By Document 05/30/23 08:27 MT Desktop 05/30/23 08:37 MT Document 06/06/23 08:42 CP Desktop 06/06/23 08:49 CP Document 06/13/23 08:50 RB Desktop 06/13/23 08:52 RB Document 06/20/23 08:51 KW Desktop 06/20/23 09:02 KW 05/30/23 06/06/23 06/13/23 08:27 08:42 08:50 WC - Today's Visit Information Type of service Follow-up Visit Follow-up Visit Follow-up Visit (Physician/INSTALLMENT AGENT (Physician/INSTALLMENT AGENT (Physician/INSTALLMENT AGENT ) ) ) Arrival Mode Ambulatory Ambulatory Ambulatory Transfer Assistance None Accompanied by letty- Patient Identification Verified (Name & Yes Yes Yes ) Patient Requires Transmission-Based No Precautions Finger Stick Blood Sugar(mg/dl) (if 163 indicated): Blood Sugar Stated by Patient Height and Weight Body Mass Index (BMI) 35.4 35.4 35.4 BMI Classification Obese Obese Obese Vital Signs Temperature (97.8 F-99.1 F) 97 F L 98.4 F 97.3 F L Temperature Source Temporal Temporal Temporal Pulse Rate (60-100) 81 88 80 Pulse Location Monitor Monitor Monitor Respiratory Rate (12-18) 16 16 18 Respiratory rate source Observation Observation Observation Oxygen Delivery Method Room Air Room Air Blood Pressure (90/60-120/80) 152/87 H 165/80 H 174/87 H Blood Pressure Mean (mm Hg) 108 108 116 Source Monitor Monitor Monitor Position Sitting Sitting Semi-Fowlers Blood Pressure Location Left Arm Left Arm Left Arm History Since Last Visit- (Skip if this is Patient's initial visit) Have you changed medications since your No No last visit? Any new allergies or adverse reactions No No Had a fall/change in ADL's that may No No increase risk of falls Signs or symptoms of abuse and/or No No neglect since last visit Have you been in the hospital since your No No last visit? Has dressing in place as prescribed Yes Yes Has compression in place as prescribed N/A N/A No Has offloadiing in place as prescribed N/A N/A No Experienced any changes in pain level or No No management Left Footwear Regular Shoe Right Footwear Regular Shoe Pain Scale: 0-10 Numeric Is Patient Pain Free? Yes Yes Yes 06/20/23 08:51 WC - Today's Visit Information Type of service Follow-up Visit (Physician/INSTALLMENT AGENT ) Arrival Mode Ambulatory Transfer Assistance Accompanied by Patient Identification Verified (Name & Yes ) Patient Requires Transmission-Based Precautions Finger Stick Blood Sugar(mg/dl) (if indicated): Blood Sugar Height and Weight Body Mass Index (BMI) 35.4 BMI Classification Obese Vital Signs Temperature (97.8 F-99.1 F) 97.6 F L Temperature Source Temporal Pulse Rate (60-100) 82 Pulse Location Monitor Respiratory Rate (12-18) 18 Respiratory rate source Observation Oxygen Delivery Method Room Air Blood Pressure (90/60-120/80) 163/80 H Blood Pressure Mean (mm Hg) 107 Source Monitor Position Semi-Fowlers Blood Pressure Location Left Arm History Since Last Visit- (Skip if this is Patient's initial visit) Have you changed medications since your No last visit? Any new allergies or adverse reactions No Had a fall/change in ADL's that may No increase risk of falls Signs or symptoms of abuse and/or No neglect since last visit Have you been in the hospital since your No last visit? Has dressing in place as prescribed Yes Has compression in place as prescribed N/A Has offloadiing in place as prescribed N/A Experienced any changes in pain level or No management Left Footwear Regular Shoe Right Footwear Regular Shoe Pain Scale: 0-10 Numeric Is Patient Pain Free? Yes - Nurse 1 - General Ulcer Measurement Start: 05/30/23 08:27 Freq: Status: Active Protocol: Activity Type Activity Date Activity User E-sign Co-sign Detail Recorded Client Recorded Date Recorded By Document 05/30/23 08:27 MT Desktop 05/30/23 08:37 MT Document 06/06/23 08:42 CP Desktop 06/06/23 08:49 CP Document 06/13/23 08:50 RB Desktop 06/13/23 08:52 RB Document 06/20/23 08:51 KW Desktop 06/20/23 09:02 KW 05/30/23 06/06/23 06/13/23 08:27 08:42 08:50 Wound Center Nurse 1 #2 Abdomen Inferior -Combined with other wound No -Current Size (cm) - Length 5.5 6.5 5 -Current Size (cm) - Width 1.0 0.5 1.2 -Current Size (cm) - Depth 0.1 0.1 0.1 -Total Square Cm 5.50 3.25 6.0 -Photo Taken Yes -Epithelialization Medium 34-66% -Tunneling No No -Undermining/Tunneling No No No -Circular Undermining No No No -Exudate Amt None Present Small Medium -Exudate Type Serous Serosanguineous -Wound Margin Flat & Intact Flat & Intact Distinct, Outline Attached -Granulation Amt Large (67-100%) Large (67-100%) Medium (34-66%) -Granulation Quality Pale,[place] -Slough/Fibrin No Yes Yes -Necrosis Amt Small (1-33%) Medium (34-66%) -Necrotic Tissue Type Adherent Slough Adherent Slough -Structure Exposed N/A N/A -Texture (Matilde-wound Skin Appearance) Assessed, No Abnormality Assessed, Scarring Scarring -Moisture (Matilde-wound Skin Appearance) Assessed Dry/Scaly Assessed -Color (Matilde-wound Skin Appearance) Assessed No Abnormality Assessed -Temperature (Matilde-wound Skin No Abnormality No Abnormality No Abnormality Appearance) (Pt Warm) (Pt Warm) (Pt Warm) -Tenderness on Palpation (Matilde-wound No No No Skin Appearance) -Ulcer Cleansing Rinsed/ Rinsed/ Wound Cleanser Irrigated with Irrigated with Saline Saline -Foul Odor after Cleansing No No No -Anesthetic Used 5% Lidocaine 5% Lidocaine 5% Lidocaine Gel Gel Gel -Wound Comment(s) #1- ABDOMINAL POST OP Superior -Combined with other wound No -Current Size (cm) - Length 3 3.4 3 -Current Size (cm) - Width 2.0 1.8 2 -Current Size (cm) - Depth 0.1 0.1 0.1 -Total Square Cm 6.0 6.12 6 -Photo Taken Yes -Epithelialization Medium 34-66% -Tunneling No No -Undermining/Tunneling No No -Circular Undermining No No -Exudate Amt None Present Small Medium -Exudate Type Serous Serosanguineous -Wound Margin Flat & Intact Flat & Intact Distinct, Outline Attached -Granulation Amt Large (67-100%) Large (67-100%) Medium (34-66%) -Granulation Quality Pale,[place] -Slough/Fibrin No Yes Yes -Necrosis Amt Small (1-33%) Medium (34-66%) -Necrotic Tissue Type Adherent Slough Adherent Slough -Structure Exposed N/A N/A -Texture (Matilde-wound Skin Appearance) Assessed No Abnormality Assessed, Scarring -Moisture (Matilde-wound Skin Appearance) Assessed Dry/Scaly Assessed -Color (Matilde-wound Skin Appearance) Assessed No Abnormality Assessed -Temperature (Matilde-wound Skin No Abnormality No Abnormality No Abnormality Appearance) (Pt Warm) (Pt Warm) (Pt Warm) -Tenderness on Palpation (Matilde-wound No No No Skin Appearance) -Ulcer Cleansing Rinsed/ Rinsed/ Wound Cleanser Irrigated with Irrigated with Saline Saline -Foul Odor after Cleansing No No No -Anesthetic Used 5% Lidocaine 5% Lidocaine 5% Lidocaine Gel Gel Gel -Wound Comment(s) Lower Limb Edema Present NA 06/20/23 08:51 Wound Center Nurse 1 #2 Abdomen Inferior -Combined with other wound -Current Size (cm) - Length -Current Size (cm) - Width -Current Size (cm) - Depth -Total Square Cm -Photo Taken -Epithelialization -Tunneling -Undermining/Tunneling -Circular Undermining -Exudate Amt -Exudate Type -Wound Margin -Granulation Amt -Granulation Quality -Slough/Fibrin -Necrosis Amt -Necrotic Tissue Type -Structure Exposed -Texture (Matilde-wound Skin Appearance) -Moisture (Matilde-wound Skin Appearance) -Color (Matilde-wound Skin Appearance) -Temperature (Matilde-wound Skin Appearance) -Tenderness on Palpation (Matilde-wound Skin Appearance) -Ulcer Cleansing -Foul Odor after Cleansing -Anesthetic Used -Wound Comment(s) left product intact for today, cleansed around ulcer #1- ABDOMINAL POST OP Superior -Combined with other wound -Current Size (cm) - Length -Current Size (cm) - Width -Current Size (cm) - Depth -Total Square Cm -Photo Taken -Epithelialization -Tunneling -Undermining/Tunneling -Circular Undermining -Exudate Amt -Exudate Type -Wound Margin -Granulation Amt -Granulation Quality -Slough/Fibrin -Necrosis Amt -Necrotic Tissue Type -Structure Exposed -Texture (Matilde-wound Skin Appearance) -Moisture (Matilde-wound Skin Appearance) -Color (Matilde-wound Skin Appearance) -Temperature (Matilde-wound Skin Appearance) -Tenderness on Palpation (Matilde-wound Skin Appearance) -Ulcer Cleansing -Foul Odor after Cleansing -Anesthetic Used -Wound Comment(s) left product intact for today. cleansed around ulcer Lower Limb Edema Present WC - Nurse 2 - General Ulcer CM Notes Start: 05/30/23 08:27 Freq: Status: Active Protocol: Activity Type Activity Date Activity User E-sign Co-sign Detail Recorded Client Recorded Date Recorded By Document 05/30/23 08:51 GM Desktop 05/30/23 08:52 GM Edit Result 05/30/23 08:51 GM (1) Desktop 05/30/23 09:02 GM Document 06/06/23 09:20 GM Desktop 06/06/23 09:26 GM Document 06/13/23 09:07 GM Desktop 06/13/23 09:14 GM Document 06/20/23 09:37 GM Desktop 06/20/23 09:38 GM (1) #2 Abdomen Inferior - Post Debridement (cm) - Length => 7 - Post Debridement (cm) - Width => 0.7 - Post Debridement (cm) - Depth => 0.1 - Total Square (Post) (cm) => 4.9 - Area of Debridement (cm) - Length => 7 - Area of Debridement (cm) - Width => 0.7 - Total Square (Area) (cm) => 4.9 #1- ABDOMINAL POST OP Superior - Post Debridement (cm) - Length => 3 - Post Debridement (cm) - Width => 2.0 - Post Debridement (cm) - Depth => 0.1 - Total Square (Post) (cm) => 6.0 - Area of Debridement (cm) - Length => 3 - Area of Debridement (cm) - Width => 2 - Total Square (Area) (cm) => 6 05/30/23 06/06/23 06/13/23 08:51 09:20 09:07 Wound Center Nurse 2 #2 Abdomen Inferior -Time 08:51 09:20 09:08 -Correct Patient Yes Yes Yes -Correct Side, Site, Position Yes Yes Yes -Correct Procedure Yes Yes Yes -Procedure Performed Yes Yes Yes -Type of Procedure Debridement Debridement Debridement -Clinical Debridement Subcutaneous Subcutaneous Subcutaneous -Tissue Removed Subcutaneous Subcutaneous Subcutaneous -Post Debridement (cm) - Length 7 5.5 5.5 -Post Debridement (cm) - Width 0.7 1.5 1.2 -Post Debridement (cm) - Depth 0.1 0.1 0.1 -Total Square (Post) (cm) 4.9 8.25 6.60 -Area of Debridement (cm) - Length 7 5.5 5.5 -Area of Debridement (cm) - Width 0.7 1.5 1.2 -Total Square (Area) (cm) 4.9 8.25 6.60 -Tunneling No No No -Undermining/Tunneling No No No -Circular Undermining No No No -Wound/Ulcer Outcome Not Healed Not Healed Not Healed -Ulcer Cleansing Rinsed/ Rinsed/ Rinsed/ Irrigated with Irrigated with Irrigated with Saline Saline Saline -Foul Odor after Cleansing No No No -Bioengineered Tissue No No Yes -Type of Bioengineered Tissue [employer] -Expiration Date 10/16/27 -Product Lot Number [id number] -Percent Used 100 -Lot number of Saline Used [id number] -Bleeding Controlled with Pressure Pressure Pressure -Treatment Response Procedure Procedure Procedure Tolerated Well Tolerated Well Tolerated Well -Debridement - Subq, 1st 20sq cm Yes Yes Yes -Wound Comment(s) #1- ABDOMINAL POST OP Superior -Time 08:51 09:21 09:12 -Correct Patient Yes Yes Yes -Correct Side, Site, Position Yes Yes Yes -Correct Procedure Yes Yes Yes -Procedure Performed Yes Yes Yes -Type of Procedure Debridement Debridement Debridement -Clinical Debridement Subcutaneous Subcutaneous Subcutaneous -Tissue Removed Subcutaneous Subcutaneous Subcutaneous -Post Debridement (cm) - Length 3 2.9 3.5 -Post Debridement (cm) - Width 2.0 1.6 1.5 -Post Debridement (cm) - Depth 0.1 0.1 0.1 -Total Square (Post) (cm) 6.0 4.64 5.25 -Area of Debridement (cm) - Length 3 2.9 3.5 -Area of Debridement (cm) - Width 2 1.6 1.5 -Total Square (Area) (cm) 6 4.64 5.25 -Tunneling No No No -Undermining/Tunneling No No No -Circular Undermining No No No -Wound/Ulcer Outcome Not Healed Not Healed Not Healed -Ulcer Cleansing Rinsed/ Rinsed/ Rinsed/ Irrigated with Irrigated with Irrigated with Saline Saline Saline -Foul Odor after Cleansing No No No -Bioengineered Tissue No No Yes -Type of Bioengineered Tissue [employer] -Expiration Date 10/16/27 -Product Lot Number [id number] -Percent Used 100 -Lot number of Saline Used [id number] -Bleeding Controlled with Pressure Pressure Pressure -Treatment Response Procedure Procedure Procedure Tolerated Well Tolerated Well Tolerated Well -Debridement - Subq, 1st 20sq cm No No No -Wound Comment(s) Pain Scale: 0-10 Numeric Is Patient Pain Free? Yes Yes Yes 06/20/23 09:37 Wound Center Nurse 2 #2 Abdomen Inferior -Time -Correct Patient Yes -Correct Side, Site, Position Yes -Correct Procedure -Procedure Performed -Type of Procedure -Clinical Debridement -Tissue Removed -Post Debridement (cm) - Length -Post Debridement (cm) - Width -Post Debridement (cm) - Depth -Total Square (Post) (cm) -Area of Debridement (cm) - Length -Area of Debridement (cm) - Width -Total Square (Area) (cm) -Tunneling -Undermining/Tunneling -Circular Undermining -Wound/Ulcer Outcome Not Healed -Ulcer Cleansing -Foul Odor after Cleansing -Bioengineered Tissue -Type of Bioengineered Tissue -Expiration Date -Product Lot Number -Percent Used -Lot number of Saline Used -Bleeding Controlled with -Treatment Response -Debridement - Subq, 20sq cm -Wound Comment(s) no debridement, skin sub still intact #1- ABDOMINAL POST OP Superior -Time 09:38 -Correct Patient Yes -Correct Side, Site, Position Yes -Correct Procedure -Procedure Performed -Type of Procedure -Clinical Debridement -Tissue Removed -Post Debridement (cm) - Length -Post Debridement (cm) - Width -Post Debridement (cm) - Depth -Total Square (Post) (cm) -Area of Debridement (cm) - Length -Area of Debridement (cm) - Width -Total Square (Area) (cm) -Tunneling -Undermining/Tunneling -Circular Undermining -Wound/Ulcer Outcome Not Healed -Ulcer Cleansing -Foul Odor after Cleansing -Bioengineered Tissue -Type of Bioengineered Tissue -Expiration Date -Product Lot Number -Percent Used -Lot number of Saline Used -Bleeding Controlled with -Treatment Response -Debridement - Subq, 20sq cm -Wound Comment(s) no debridement, skin sub still intact Pain Scale: 0-10 Numeric Is Patient Pain Free? Yes - Nurse 3 - General Ulcer D/C NN Start: 05/30/23 08:27 Freq: Status: Active Protocol: Activity Type Activity Date Activity User E-sign Co-sign Detail Recorded Client Recorded Date Recorded By Document 05/30/23 09:02 itsDapper Desktop 05/30/23 09:04 GM Document 06/06/23 09:36 Desktop 06/06/23 09:38 GM Document 06/13/23 09:24 GM Desktop 06/13/23 09:25 GM Document 06/20/23 09:40 Desktop 06/20/23 09:41 05/30/23 06/06/23 06/13/23 09:02 09:36 09:24 Wound Care Center Nurse 3 #2 Abdomen Inferior -Ulcer Cleansing Not Cleansed Not Cleansed -Foul Odor after Cleansing No No -Primary Dressing Applied NonAdherent Promogran Aquacel Extra Contact Layer, Promogran -Other Dressing abd -Primary Dressing Covered/Secured with Dry Gauze, Dry Gauze, Dry Gauze Secured with Secured with Tape Tape -Aquacel Extra 1 -Promogran 1 3 #1- ABDOMINAL POST OP Superior -Ulcer Cleansing Not Cleansed -Foul Odor after Cleansing No -Primary Dressing Applied Promogran -Other Dressing aquacel extra/ ABD -Primary Dressing Covered/Secured with Secured with Tape -Promogran 1 Treatment Response Procedure Tolerated Well Pain Scale: 0-10 Numeric Is Patient Pain Free? Yes Yes Yes Teaching: Wound Center Dressing Your Wound -Person Taught Patient,Family Patient -Teaching Method Discussion, Discussion Demonstration -Response to teaching Verbalize Verbalize understanding understanding WC - Visit Discharge Discharge Condition Stable Stable Stable Ambulatory Status Ambulatory Ambulatory Ambulatory Transportation Private Auto Private Auto Private Auto Accompanied by Medication Reconcilliation completed & No provided to patient/care provider Clinical Summary of Care Provided Yes Yes Yes 06/20/23 09:40 Wound Care Center Nurse 3 #2 Abdomen Inferior -Ulcer Cleansing -Foul Odor after Cleansing -Primary Dressing Applied -Other Dressing -Primary Dressing Covered/Secured with Dry Gauze, Secured with Tape -Aquacel Extra -Promogran #1- ABDOMINAL POST OP Superior -Ulcer Cleansing -Foul Odor after Cleansing -Primary Dressing Applied -Other Dressing -Primary Dressing Covered/Secured with Dry Gauze, Secured with Tape -Promogran Treatment Response Pain Scale: 0-10 Numeric Is Patient Pain Free? Yes Teaching: Wound Center Dressing Your Wound -Person Taught -Teaching Method -Response to teaching WC - Visit Discharge Discharge Condition Stable Ambulatory Status Ambulatory Transportation Private Auto Accompanied by Medication Reconcilliation completed & No provided to patient/care provider Clinical Summary of Care Provided Yes Assessment/Plan Assessment/Plan (1) Non-healing surgical wound: CODE(S): T81.89XA - Other complications of procedures, not elsewhere classified, initial encounter (2) S/P colectomy: CODE(S): Z90.49 - Acquired absence of other specified parts of digestive tract (3) Colostomy in place: CODE(S): Z93.3 - Colostomy status (4) Type 2 diabetes mellitus: CODE(S): E11.9 - Type 2 diabetes mellitus without complications (5) Perforation of sigmoid colon due to diverticulitis: CODE(S): K57.20 - Diverticulitis of large intestine with perforation and abscess without bleeding PLAN: Plan No acute concerns at this time. TheraSkin still intact. No significant drainage per patient and .. New wound veil reinforced with Steri-Strips. Cover with ABD. Continue other chronic wound care. Follow-up in a week or sooner if needed.
== END 2023-06-25 23:59 | disposition home or self-care (01) ==
LOC: WC 09:00
PROVIDERS: PCP Internal Medicine; Referring Provider Internal Medicine; Visit Provider Internal Medicine
DX: T81.89XA Other complications of procedures, not elsewhere classified, initial encounter (principal); Z93.3 Colostomy status; E11.9 Type 2 diabetes mellitus without complications; Z90.49 Acquired absence of other specified parts of digestive tract; K57.20 Diverticulitis of large intestine with perforation and abscess without bleeding
CPT/HCPCS: 11042; 87070; 87075; 87186; 87205; 99213; G0463

== ENCOUNTER 2023-07-25 08:30 | Outpatient (RCR) | payer OTHER, SELFPAY ==
[2023-06-26 00:13] VITALS: BP 163/80; PULSE 82; RESP 18; TEMP 36.4; O2SAT 98; BMI 35.4
[2023-06-27 11:17] VITALS: BP 163/90; PULSE 80; RESP 18; TEMP 36.4; BMI 35.4
--- NOTE | 2023-06-27 11:55 | PCM.WC.PN ---
History of Present Illness Date of Service: 06/27/23 Chief Complaint: Non healing surgical wound History of Wound: Mr. Duque is a 61 yo who presents here due to non healing surgical wound. History of perforated diverticulitis necessitating partial colectomy and a diverting colostomy. Hospital stay also complicated by intra-abdominal abscess. Following his hospital stay in July, he was admitted at the TCU for rehabilitation at which time he had local wound care with [facility]. Was seen by his general surgeon about a week ago following which he was started on a wound VAC on Saturday. So far tolerating wound VAC well. Progress of Wound: No new concerns at this time. Had 1 application of TheraSkin left in place for 2 weeks. Seems to have responded really well to this. No concerning side effects. Plan is for colostomy reversal on the 11 of August, follows up with his general surgeon in [place]. Objective Data Objective Data Vital Signs: Vital Signs Temp Pulse Resp BP Pulse Ox 97.6 F L 80 18 163/90 H 98 06/27/23 11:17 06/27/23 11:17 06/27/23 11:17 06/27/23 11:17 06/26/23 00:13 Weight: 233 lb Body Mass Index (BMI) 35.4 Charges/Coding Procedures Integumentary 111xxx-113xx: 13293 [place] subq tissue 20 sq cm/< Physical Exam Const alert, oriented x3 and no apparent distress General Appearance: cooperative, comfortable and well kempt HEENT normocephalic, head/scalp atraumatic and hearing grossly normal bilaterally Eyes PERRL and EOMs intact bilaterally General Eye: normal appearance of both eyes Neck full ROM and supple General: normal visual inspection Resp normal respiratory effort GI non-tender and non-distended Skin Wounds: wounds noted Neuro oriented x3, CN's II-XII intact bilaterally, moves all extremities and no focal motor deficits Psych mental status grossly normal, thought process normal and cooperative Debridement Note Debridement Note Wound debrided: Abdominal wound (superior) Type of Debridement: Excisional debridement Anesthesia Used: 5% Lidocaine Gel Depth: Down to and including healthy tissue and in the subcutaneous layer Percentage of wound debrided: 100 Instrument Used: 5mm curette Tissue Removed: Slough and vitalized tissue Severity: Fat Layer Exposed Amount of bleeding with debridement: Mild Bleeding Controlled with: Pressure Patient tolerated procedure: Patient tolerated procedure well Post-Debridement Measurements and Additional Note: Post-Debridement Measurements/Treatment - Nurse 1 - General Ulcer Assessment Start: 06/27/23 11:17 Freq: Status: Active Protocol: JUSTIN Activity Type Activity Date Activity User E-sign Co-sign Detail Recorded Client Recorded Date Recorded By Document 06/27/23 11:17 RB Desktop 06/27/23 11:19 RB 06/27/23 11:17 WC - Today's Visit Information Type of service Follow-up Visit (Physician/BOX ATTACHER ) Arrival Mode Ambulatory Transfer Assistance None Patient Identification Verified (Name & Yes ) Patient Requires Transmission-Based No Precautions Height and Weight Body Mass Index (BMI) 35.4 BMI Classification Obese Vital Signs Temperature (97.8 F-99.1 F) 97.6 F L Temperature Source Temporal Pulse Rate (60-100) 80 Pulse Location Monitor Respiratory Rate (12-18) 18 Respiratory rate source Observation Blood Pressure (90/60-120/80) 163/90 H Blood Pressure Mean (mm Hg) 114 Source Monitor Position Semi-Fowlers Blood Pressure Location Left Arm History Since Last Visit- (Skip if this is Patient's initial visit) Have you changed medications since your No last visit? Any new allergies or adverse reactions No Had a fall/change in ADL's that may No increase risk of falls Signs or symptoms of abuse and/or No neglect since last visit Have you been in the hospital since your No last visit? Has dressing in place as prescribed Yes Has compression in place as prescribed No Has offloadiing in place as prescribed No Experienced any changes in pain level or No management Pain Scale: 0-10 Numeric Is Patient Pain Free? Yes [place] Nurse 1 - General Ulcer Measurement Start: 06/27/23 11:17 Freq: Status: Active Protocol: Activity Type Activity Date Activity User E-sign Co-sign Detail Recorded Client Recorded Date Recorded By Document 06/27/23 11:17 RB Desktop 06/27/23 11:19 RB 06/27/23 11:17 Wound Center Nurse 1 #2 Abdomen Inferior -Combined with other wound No -Current Size (cm) - Length 0.1 -Current Size (cm) - Width 0.1 -Current Size (cm) - Depth 0.1 -Total Square Cm 0.01 -Tunneling No -Undermining/Tunneling No -Circular Undermining No -Exudate Amt Small -Exudate Type Serosanguineous -Wound Margin Distinct, Outline Attached -Granulation Amt Medium (34-66%) -Granulation Quality [place] -Slough/Fibrin Yes -Necrosis Amt Medium (34-66%) -Necrotic Tissue Type Adherent Slough -Structure Exposed N/A -Texture (Matilde-wound Skin Appearance) Assessed, Scarring -Moisture (Matilde-wound Skin Appearance) Assessed -Color (Matilde-wound Skin Appearance) Assessed -Temperature (Matilde-wound Skin No Abnormality Appearance) (Pt Warm) -Tenderness on Palpation (Matilde-wound No Skin Appearance) -Ulcer Cleansing Wound Cleanser -Foul Odor after Cleansing No -Anesthetic Used 4% Lidocaine Solution -Wound Comment(s) theraskin left in place #1- ABDOMINAL POST OP Superior -Combined with other wound No -Current Size (cm) - Length 0.1 -Current Size (cm) - Width 0.1 -Current Size (cm) - Depth 0.1 -Total Square Cm 0.01 -Tunneling No -Undermining/Tunneling No -Circular Undermining No -Exudate Amt Small -Exudate Type Serosanguineous -Wound Margin Distinct, Outline Attached -Granulation Amt Medium (34-66%) -Granulation Quality [place] -Slough/Fibrin Yes -Necrosis Amt Medium (34-66%) -Necrotic Tissue Type Adherent Slough -Structure Exposed N/A -Texture (Matilde-wound Skin Appearance) Assessed, Scarring -Moisture (Matilde-wound Skin Appearance) Assessed -Color (Matilde-wound Skin Appearance) Assessed -Temperature (Matilde-wound Skin No Abnormality Appearance) (Pt Warm) -Tenderness on Palpation (Matilde-wound No Skin Appearance) -Ulcer Cleansing Wound Cleanser -Foul Odor after Cleansing No -Anesthetic Used 4% Lidocaine Solution WC - Nurse 2 - General Ulcer CM Notes Start: 06/27/23 11:17 Freq: Status: Active Protocol: Activity Type Activity Date Activity User E-sign Co-sign Detail Recorded Client Recorded Date Recorded By Document 06/27/23 11:38 GM Desktop 06/27/23 11:45 GM 06/27/23 11:38 Wound Center Nurse 2 #2 Abdomen Inferior -Time 11:39 -Correct Patient Yes -Correct Side, Site, Position Yes -Correct Procedure Yes -Procedure Performed Yes -Type of Procedure Debridement -Clinical Debridement Subcutaneous -Tissue Removed Subcutaneous -Tunneling No -Undermining/Tunneling No -Circular Undermining No -Wound/Ulcer Outcome Not Healed -Ulcer Cleansing Rinsed/ Irrigated with Saline -Foul Odor after Cleansing No -Bioengineered Tissue No -Bleeding Controlled with Pressure -Treatment Response Procedure Tolerated Well -Debridement - Subq, 1st 20sq cm Yes #1- ABDOMINAL POST OP Superior -Time 11:40 -Correct Patient Yes -Correct Side, Site, Position Yes -Correct Procedure Yes -Procedure Performed Yes -Type of Procedure Debridement -Clinical Debridement Subcutaneous -Tissue Removed Subcutaneous -Post Debridement (cm) - Length 3.0 -Post Debridement (cm) - Width 1.6 -Post Debridement (cm) - Depth 0.1 -Total Square (Post) (cm) 4.80 -Tunneling No -Undermining/Tunneling No -Circular Undermining No -Wound/Ulcer Outcome Not Healed -Ulcer Cleansing Rinsed/ Irrigated with Saline -Foul Odor after Cleansing No -Bioengineered Tissue No -Bleeding Controlled with Pressure -Treatment Response Procedure Tolerated Well -Debridement - Subq, 1st 20sq cm Yes Pain Scale: 0-10 Numeric Is Patient Pain Free? Yes - Nurse 3 - General Ulcer D/C NN Start: 06/27/23 11:17 Freq: Status: Active Protocol: Activity Type Activity Date Activity User E-sign Co-sign Detail Recorded Client Recorded Date Recorded By Document 06/27/23 11:45 GM Desktop 06/27/23 11:53 GM 06/27/23 11:45 Wound Care Center Nurse 3 #1- ABDOMINAL POST OP Superior -Ulcer Cleansing Not Cleansed -Foul Odor after Cleansing No -Primary Dressing Applied NonAdherent Contact Layer, Promogran Cinda Matter -Promogran Cinda Matter 1 Pain Scale: 0-10 Numeric Is Patient Pain Free? Yes WC - Visit Discharge Discharge Condition Stable Ambulatory Status Ambulatory Transportation Private Auto Clinical Summary of Care Provided Yes Additional Wound Wound debrided: Abdominal wound (inferior) Type of Debridement: Selective debridement Anesthesia Used: 5% Lidocaine Gel Depth: Down to and including healthy tissue Percentage of wound debrided: 100 Instrument Used: 5mm curette Tissue Removed: Slough and devitalized tissue Severity: Fat Layer Exposed Amount of bleeding with debridement: Mild Bleeding Controlled with: Pressure Patient tolerated procedure: Patient tolerated procedure well Assessment/Plan Assessment/Plan (1) Non-healing surgical wound: CODE(S): T81.89XA - Other complications of procedures, not elsewhere classified, initial encounter (2) S/P colectomy: CODE(S): Z90.49 - Acquired absence of other specified parts of digestive tract (3) Colostomy in place: CODE(S): Z93.3 - Colostomy status (4) Type 2 diabetes mellitus: CODE(S): E11.9 - Type 2 diabetes mellitus without complications (5) Perforation of sigmoid colon due to diverticulitis: CODE(S): K57.20 - Diverticulitis of large intestine with perforation and abscess without bleeding PLAN: Plan Debridement done as documented above, procedure was well-tolerated. As above, good response to Theraskin, had just 1 application of a sample. Plan is for colostomy reversal on the 11 of August with intent for primary closure. I believe he will continue to benefit from TheraSkin prior to his surgery to reduce the chances of wound breakdown due to chronicity/Scaring. For now, continue Promogran daily, cover with Adaptic. Continue adequate protein intake, Vitamin C, D and Zinc. Continue optimal diabetes control. Their questions were answered and they were advised to call if they have any further questions or concerns. Patient and voiced understanding. Follow-up in 2 weeks. This note was generated with [employer] dictation software. It may contain incorrect words, spelling, and punctuation that were not noted in checking the note before signing.
[2023-07-11 08:33] VITALS: BP 139/76; PULSE 68; RESP 18; TEMP 35.8; BMI 35.4
--- NOTE | 2023-07-11 08:52 | PCM.WC.PN ---
History of Present Illness Date of Service: 07/11/23 Chief Complaint: Non healing surgical wound History of Wound: Mr. Duque is a 61 yo who presents here due to non healing surgical wound. History of perforated diverticulitis necessitating partial colectomy and a diverting colostomy. Hospital stay also complicated by intra-abdominal abscess. Following his hospital stay in July, he was admitted at the TCU for rehabilitation at which time he had local wound care with [facility]. Was seen by his general surgeon about a week ago following which he was started on a wound VAC on Saturday. So far tolerating wound VAC well. Progress of Wound: No new concerns reported by the patient. Has been applying Promogran daily. Superior wound with some improvement however, inferior area with slight breakdown compared to last visit. Did really, really well with TheraSkin however this was a sample and plan is for surgery on the 11 of August with his surgeon in [place]. Plan is for colostomy reversal and wound closure. Objective Data Objective Data Vital Signs: Vital Signs Temp Pulse Resp BP Pulse Ox 96.5 F L 68 18 139/76 H 98 07/11/23 08:33 07/11/23 08:33 07/11/23 08:33 07/11/23 08:33 06/26/23 00:13 Weight: 233 lb Body Mass Index (BMI) 35.4 Charges/Coding Procedures Integumentary 111xxx-113xx: 14732 [place] subq tissue 20 sq cm/< Physical Exam Const alert, oriented x3 and no apparent distress General Appearance: cooperative, comfortable and well kempt HEENT normocephalic, head/scalp atraumatic and hearing grossly normal bilaterally Eyes PERRL and EOMs intact bilaterally General Eye: normal appearance of both eyes Neck full ROM and supple General: normal visual inspection Resp normal respiratory effort GI non-tender and non-distended Skin Wounds: wounds noted Neuro oriented x3, CN's II-XII intact bilaterally, moves all extremities and no focal motor deficits Psych mental status grossly normal, thought process normal and cooperative Debridement Note Debridement Note Wound debrided: Superior abdominal wound Type of Debridement: Excisional debridement Anesthesia Used: 5% Lidocaine Gel Depth: Down to and including healthy tissue and in the subcutaneous layer Percentage of wound debrided: 100 Instrument Used: 5mm curette Tissue Removed: Slough and devitalized tissue Severity: Fat Layer Exposed Amount of bleeding with debridement: Mild Bleeding Controlled with: Pressure Patient tolerated procedure: Patient tolerated procedure well Post-Debridement Measurements and Additional Note: Post-Debridement Measurements/Treatment WC - Nurse 1 - General Ulcer Assessment Start: 06/27/23 11:17 Freq: Status: Active Protocol: JUSTIN Activity Type Activity Date Activity User E-sign Co-sign Detail Recorded Client Recorded Date Recorded By Document 06/27/23 11:17 RB Desktop 06/27/23 11:19 RB Document 07/11/23 08:33 RB wound center 07/11/23 08:40 RB 06/27/23 07/11/23 11:17 08:33 WC - Today's Visit Information Type of service Follow-up Visit Follow-up Visit (Physician/TRAFFIC SIGNAL SUPERVISOR MAINTENANCE (Physician/TRAFFIC SIGNAL SUPERVISOR MAINTENANCE ) ) Arrival Mode Ambulatory Ambulatory Transfer Assistance None None Patient Identification Verified (Name & Yes Yes ) Patient Requires Transmission-Based No No Precautions Height and Weight Body Mass Index (BMI) 35.4 35.4 BMI Classification Obese Obese Vital Signs Temperature (97.8 F-99.1 F) 97.6 F L 96.5 F L Temperature Source Temporal Temporal Pulse Rate (60-100) 80 68 Pulse Location Monitor Monitor Respiratory Rate (12-18) 18 18 Respiratory rate source Observation Observation Blood Pressure (90/60-120/80) 163/90 H 139/76 H Blood Pressure Mean (mm Hg) 114 97 Source Monitor Monitor Position Semi-Fowlers Semi-Fowlers Blood Pressure Location Left Arm Left Arm History Since Last Visit- (Skip if this is Patient's initial visit) Have you changed medications since your No No last visit? Any new allergies or adverse reactions No No Had a fall/change in ADL's that may No No increase risk of falls Signs or symptoms of abuse and/or No No neglect since last visit Have you been in the hospital since your No No last visit? Has dressing in place as prescribed Yes Yes Has compression in place as prescribed No No Has offloadiing in place as prescribed No No Experienced any changes in pain level or No No management Pain Scale: 0-10 Numeric Is Patient Pain Free? Yes Yes [facility] [place] Nurse 1 - General Ulcer Measurement Start: 06/27/23 11:17 Freq: Status: Active Protocol: Activity Type Activity Date Activity User E-sign Co-sign Detail Recorded Client Recorded Date Recorded By Document 06/27/23 11:17 RB Desktop 06/27/23 11:19 RB Document 07/11/23 08:33 RB wound center 07/11/23 08:40 RB 06/27/23 07/11/23 11:17 08:33 Wound Center Nurse 1 #2 Abdomen Inferior -Combined with other wound No No -Current Size (cm) - Length 0.1 7.5 -Current Size (cm) - Width 0.1 1.4 -Current Size (cm) - Depth 0.1 0.1 -Total Square Cm 0.01 10.50 -Photo Taken No -Tunneling No No -Undermining/Tunneling No No -Circular Undermining No No -Exudate Amt Small Large -Exudate Type Serosanguineous Serosanguineous -Wound Margin Distinct, Distinct, Outline Outline Attached Attached -Granulation Amt Medium (34-66%) Medium (34-66%) -Granulation Quality [place] -Slough/Fibrin Yes Yes -Necrosis Amt Medium (34-66%) Medium (34-66%) -Necrotic Tissue Type Adherent Slough Adherent Slough -Structure Exposed N/A N/A -Texture (Matilde-wound Skin Appearance) Assessed, Assessed, Scarring Scarring -Moisture (Matilde-wound Skin Appearance) Assessed Assessed -Color (Matilde-wound Skin Appearance) Assessed Assessed -Temperature (Matilde-wound Skin No Abnormality No Abnormality Appearance) (Pt Warm) (Pt Warm) -Tenderness on Palpation (Matiled-wound No No Skin Appearance) -Ulcer Cleansing Wound Cleanser Wound Cleanser -Foul Odor after Cleansing No No -Anesthetic Used 4% Lidocaine 4% Lidocaine Solution Solution -Wound Comment(s) theraskin left in place #1- ABDOMINAL POST OP Superior -Combined with other wound No No -Current Size (cm) - Length 0.1 3 -Current Size (cm) - Width 0.1 2.2 -Current Size (cm) - Depth 0.1 0.1 -Total Square Cm 0.01 6.6 -Tunneling No No -Undermining/Tunneling No No -Circular Undermining No No -Exudate Amt Small Large -Exudate Type Serosanguineous Serosanguineous -Wound Margin Distinct, Distinct, Outline Outline Attached Attached -Granulation Amt Medium (34-66%) Medium (34-66%) -Granulation Quality [place] -Slough/Fibrin Yes Yes -Necrosis Amt Medium (34-66%) Medium (34-66%) -Necrotic Tissue Type Adherent Slough Adherent Slough -Structure Exposed N/A N/A -Texture (Matilde-wound Skin Appearance) Assessed, Scarring Scarring -Moisture (Matilde-wound Skin Appearance) Assessed Assessed -Color (Matilde-wound Skin Appearance) Assessed Assessed -Temperature (Matilde-wound Skin No Abnormality No Abnormality Appearance) (Pt Warm) (Pt Warm) -Tenderness on Palpation (Matilde-wound No No Skin Appearance) -Ulcer Cleansing Wound Cleanser Wound Cleanser -Foul Odor after Cleansing No No -Anesthetic Used 4% Lidocaine 4% Lidocaine Solution Solution WC - Nurse 2 - General Ulcer CM Notes Start: 06/27/23 11:17 Freq: Status: Active Protocol: Activity Type Activity Date Activity User E-sign Co-sign Detail Recorded Client Recorded Date Recorded By Document 06/27/23 11:38 GM Desktop 06/27/23 11:45 GM Edit Result 06/27/23 11:38 GM (1) [id number] 07/10/23 08:07 GM (1) #1- ABDOMINAL POST OP Superior - Debridement - Subq, 1st 20sq cm Yes => No 06/27/23 11:38 Wound Center Nurse 2 #2 Abdomen Inferior -Time 11:39 -Correct Patient Yes -Correct Side, Site, Position Yes -Correct Procedure Yes -Procedure Performed Yes -Type of Procedure Debridement -Clinical Debridement Subcutaneous -Tissue Removed Subcutaneous -Tunneling No -Undermining/Tunneling No -Circular Undermining No -Wound/Ulcer Outcome Not Healed -Ulcer Cleansing Rinsed/ Irrigated with Saline -Foul Odor after Cleansing No -Bioengineered Tissue No -Bleeding Controlled with Pressure -Treatment Response Procedure Tolerated Well -Debridement - Subq, 1st 20sq cm Yes #1- ABDOMINAL POST OP Superior -Time 11:40 -Correct Patient Yes -Correct Side, Site, Position Yes -Correct Procedure Yes -Procedure Performed Yes -Type of Procedure Debridement -Clinical Debridement Subcutaneous -Tissue Removed Subcutaneous -Post Debridement (cm) - Length 3.0 -Post Debridement (cm) - Width 1.6 -Post Debridement (cm) - Depth 0.1 -Total Square (Post) (cm) 4.80 -Tunneling No -Undermining/Tunneling No -Circular Undermining No -Wound/Ulcer Outcome Not Healed -Ulcer Cleansing Rinsed/ Irrigated with Saline -Foul Odor after Cleansing No -Bioengineered Tissue No -Bleeding Controlled with Pressure -Treatment Response Procedure Tolerated Well -Debridement - Subq, 1st 20sq cm No Pain Scale: 0-10 Numeric Is Patient Pain Free? Yes - Nurse 3 - General Ulcer D/C NN Start: 06/27/23 11:17 Freq: Status: Active Protocol: Activity Type Activity Date Activity User E-sign Co-sign Detail Recorded Client Recorded Date Recorded By Document 06/27/23 11:45 GM Desktop 06/27/23 11:53 GM 06/27/23 11:45 Wound Care Center Nurse 3 #1- ABDOMINAL POST OP Superior -Ulcer Cleansing Not Cleansed -Foul Odor after Cleansing No -Primary Dressing Applied NonAdherent Contact Layer, Promogran Cinda Matter -Promogran Cinda Matter 1 Pain Scale: 0-10 Numeric Is Patient Pain Free? Yes WC - Visit Discharge Discharge Condition Stable Ambulatory Status Ambulatory Transportation Private Auto Clinical Summary of Care Provided Yes Additional Wound Wound debrided: Inferior abdominal wound cluster Type of Debridement: Excisional debridement Anesthesia Used: 5% Lidocaine Gel Depth: Down to and including healthy tissue and in the subcutaneous layer Percentage of wound debrided: 100 Instrument Used: 5mm curette Tissue Removed: Slough and devitalized tissue Severity: Fat Layer Exposed Amount of bleeding with debridement: Mild Bleeding Controlled with: Pressure Patient tolerated procedure: Patient tolerated procedure well Assessment/Plan Assessment/Plan (1) Non-healing surgical wound: CODE(S): T81.89XA - Other complications of procedures, not elsewhere classified, initial encounter (2) S/P colectomy: CODE(S): Z90.49 - Acquired absence of other specified parts of digestive tract (3) Colostomy in place: CODE(S): Z93.3 - Colostomy status (4) Type 2 diabetes mellitus: CODE(S): E11.9 - Type 2 diabetes mellitus without complications (5) Perforation of sigmoid colon due to diverticulitis: CODE(S): K57.20 - Diverticulitis of large intestine with perforation and abscess without bleeding PLAN: Plan Debridement done as documented above, procedure was well-tolerated. Unfortunately, some wound breakdown following great response to Theraskin (1 sample application). Plan is for colostomy reversal on the 11 of August with intent for primary closure. I believe he will continue to benefit from TheraSkin prior to his surgery to reduce the chances of wound breakdown due to chronicity/Scaring. For now, continue Promogran daily, cover with Adaptic. Continue adequate protein intake, Vitamin C, D and Zinc. Continue optimal diabetes control. Their questions were answered and they were advised to call if they have any further questions or concerns. Patient and voiced understanding. Follow-up in 2 weeks. This note was generated with [employer] dictation software. It may contain incorrect words, spelling, and punctuation that were not noted in checking the note before signing.
[2023-07-25 08:30] VITALS: BP 159/82; PULSE 68; RESP 18; TEMP 36.5; BMI 35.4
--- NOTE | 2023-07-25 09:33 | PCM.WC.PN ---
History of Present Illness Date of Service: 07/25/23 Chief Complaint: Non healing surgical wound History of Wound: Mr. Duque is a 61 yo who presents here due to non healing surgical wound. History of perforated diverticulitis necessitating partial colectomy and a diverting colostomy. Hospital stay also complicated by intra-abdominal abscess. Following his hospital stay in July, he was admitted at the TCU for rehabilitation at which time he had local wound care with [facility]. Was seen by his general surgeon about a week ago following which he was started on a wound VAC on Saturday. So far tolerating wound VAC well. Progress of Wound: No new concerns reported at this time. Surgery still scheduled for the . No significant drainage or malodor. Objective Data Objective Data Vital Signs: Vital Signs Temp Pulse Resp BP Pulse Ox O2 Del Method 97.7 F L 68 18 159/82 H 98 Room Air 07/25/23 08:30 07/25/23 08:30 07/25/23 08:30 07/25/23 08:30 06/26/23 00:13 07/25/23 08:30 Oxygen Delivery Method Room Air Weight: 233 lb Body Mass Index (BMI) 35.4 Charges/Coding Procedures Integumentary 150xxx-152xx: 30637 Skin sub graft trnk/arm/leg Physical Exam Const alert, oriented x3 and no apparent distress General Appearance: cooperative, comfortable and well kempt HEENT normocephalic, head/scalp atraumatic and hearing grossly normal bilaterally Eyes PERRL and EOMs intact bilaterally General Eye: normal appearance of both eyes Neck full ROM and supple General: normal visual inspection Resp normal respiratory effort GI non-tender and non-distended Skin Wounds: wounds noted bed granulating well, no odor and open Neuro oriented x3, CN's II-XII intact bilaterally, moves all extremities and no focal motor deficits Psych mental status grossly normal, thought process normal and cooperative Debridement Note Debridement Note Wound debrided: Abdomen (superior) Type of Debridement: Excisional debridement Anesthesia Used: 5% Lidocaine Gel Depth: Down to and including healthy tissue and in the subcutaneous layer Percentage of wound debrided: 100 Instrument Used: 5mm curette Tissue Removed: Slough and devitalized tissue Severity: Fat Layer Exposed Amount of bleeding with debridement: Mild Bleeding Controlled with: Pressure Patient tolerated procedure: Patient tolerated procedure well Post-Debridement Measurements and Additional Note: Post-Debridement Measurements/Treatment WC - Nurse 1 - General Ulcer Assessment Start: 06/27/23 11:17 Freq: Status: Active Protocol: JUSTIN Activity Type Activity Date Activity User E-sign Co-sign Detail Recorded Client Recorded Date Recorded By Document 06/27/23 11:17 RB Desktop 06/27/23 11:19 RB Document 07/11/23 08:33 RB wound center 07/11/23 08:40 RB Document 07/25/23 08:30 KW wound center 07/25/23 08:36 KW 06/27/23 07/11/23 07/25/23 11:17 08:33 08:30 WC - Today's Visit Information Type of service Follow-up Visit Follow-up Visit Follow-up Visit (Physician/INDUSTRIAL MAINTENANCE REPAIRER HELPER (Physician/INDUSTRIAL MAINTENANCE REPAIRER HELPER (Physician/INDUSTRIAL MAINTENANCE REPAIRER HELPER ) ) ) Arrival Mode Ambulatory Ambulatory Ambulatory Transfer Assistance None None Patient Identification Verified (Name & Yes Yes Yes ) Patient Requires Transmission-Based No No Precautions Height and Weight Body Mass Index (BMI) 35.4 35.4 35.4 BMI Classification Obese Obese Obese Vital Signs Temperature (97.8 F-99.1 F) 97.6 F L 96.5 F L 97.7 F L Temperature Source Temporal Temporal Temporal Pulse Rate (60-100) 80 68 68 Pulse Location Monitor Monitor Monitor Respiratory Rate (12-18) 18 18 18 Respiratory rate source Observation Observation Observation Oxygen Delivery Method Room Air Blood Pressure (90/60-120/80) 163/90 H 139/76 H 159/82 H Blood Pressure Mean (mm Hg) 114 97 107 Source Monitor Monitor Monitor Position Semi-Fowlers Semi-Fowlers Sitting Blood Pressure Location Left Arm Left Arm Left Arm History Since Last Visit- (Skip if this is Patient's initial visit) Have you changed medications since your No No No last visit? Any new allergies or adverse reactions No No No Had a fall/change in ADL's that may No No No increase risk of falls Signs or symptoms of abuse and/or No No No neglect since last visit Have you been in the hospital since your No No No last visit? Has dressing in place as prescribed Yes Yes Yes Has compression in place as prescribed No No N/A Has offloadiing in place as prescribed No No N/A Experienced any changes in pain level or No No No management Left Footwear Regular Shoe Right Footwear Regular Shoe Pain Scale: 0-10 Numeric Is Patient Pain Free? Yes Yes Yes WC - Nurse 1 - General Ulcer Measurement Start: 06/27/23 11:17 Freq: Status: Active Protocol: Activity Type Activity Date Activity User E-sign Co-sign Detail Recorded Client Recorded Date Recorded By Document 06/27/23 11:17 RB Desktop 06/27/23 11:19 RB Document 07/11/23 08:33 RB wound center 07/11/23 08:40 RB Document 07/25/23 08:30 KW wound center 07/25/23 08:36 KW 06/27/23 07/11/23 07/25/23 11:17 08:33 08:30 Wound Center Nurse 1 #2 Abdomen Inferior -Combined with other wound No No -Current Size (cm) - Length 0.1 7.5 0.1 -Current Size (cm) - Width 0.1 1.4 0.1 -Current Size (cm) - Depth 0.1 0.1 0.1 -Total Square Cm 0.01 10.50 0.01 -Photo Taken No -Epithelialization Large 67-100% -Tunneling No No -Undermining/Tunneling No No -Circular Undermining No No -Exudate Amt Small Large Small -Exudate Type Serosanguineous Serosanguineous Serosanguineous -Wound Margin Distinct, Distinct, Distinct, Outline Outline Outline Attached Attached Attached -Granulation Amt Medium (34-66%) Medium (34-66%) Large (67-100%) -Granulation Quality Colby Colby Red -Slough/Fibrin Yes Yes -Necrosis Amt Medium (34-66%) Medium (34-66%) Small (1-33%) -Necrotic Tissue Type Adherent Slough Adherent Slough Adherent Slough -Structure Exposed N/A N/A -Texture (Matilde-wound Skin Appearance) Assessed, Assessed, Assessed, Scarring Scarring Scarring -Moisture (Matilde-wound Skin Appearance) Assessed Assessed Assessed -Color (Matilde-wound Skin Appearance) Assessed Assessed Assessed -Temperature (Matilde-wound Skin No Abnormality No Abnormality No Abnormality Appearance) (Pt Warm) (Pt Warm) (Pt Warm) -Tenderness on Palpation (Matilde-wound No No No Skin Appearance) -Ulcer Cleansing Wound Cleanser Wound Cleanser Rinsed/ Irrigated with Saline -Foul Odor after Cleansing No No No -Anesthetic Used 4% Lidocaine 4% Lidocaine 5% Lidocaine Solution Solution Gel -Wound Comment(s) theraskin left in place #1- ABDOMINAL POST OP Superior -Combined with other wound No No -Current Size (cm) - Length 0.1 3 0.1 -Current Size (cm) - Width 0.1 2.2 0.1 -Current Size (cm) - Depth 0.1 0.1 0.1 -Total Square Cm 0.01 6.6 0.01 -Epithelialization Large 67-100% -Tunneling No No -Undermining/Tunneling No No -Circular Undermining No No -Exudate Amt Small Large Small -Exudate Type Serosanguineous Serosanguineous Serosanguineous -Wound Margin Distinct, Distinct, Distinct, Outline Outline Outline Attached Attached Attached -Granulation Amt Medium (34-66%) Medium (34-66%) Large (67-100%) -Granulation Quality Colby Pale Red -Slough/Fibrin Yes Yes -Necrosis Amt Medium (34-66%) Medium (34-66%) Small (1-33%) -Necrotic Tissue Type Adherent Slough Adherent Slough Adherent Slough -Structure Exposed N/A N/A -Texture (Matilde-wound Skin Appearance) Assessed, Scarring Assessed, Scarring Scarring -Moisture (Matilde-wound Skin Appearance) Assessed Assessed Assessed -Color (Matilde-wound Skin Appearance) Assessed Assessed Assessed -Temperature (Matilde-wound Skin No Abnormality No Abnormality No Abnormality Appearance) (Pt Warm) (Pt Warm) (Pt Warm) -Tenderness on Palpation (Matilde-wound No No No Skin Appearance) -Ulcer Cleansing Wound Cleanser Wound Cleanser Rinsed/ Irrigated with Saline -Foul Odor after Cleansing No No No -Anesthetic Used 4% Lidocaine 4% Lidocaine 5% Lidocaine Solution Solution Gel WC - Nurse 2 - General Ulcer CM Notes Start: 06/27/23 11:17 Freq: Status: Active Protocol: Activity Type Activity Date Activity User E-sign Co-sign Detail Recorded Client Recorded Date Recorded By Document 06/27/23 11:38 GM Desktop 06/27/23 11:45 GM Edit Result 06/27/23 11:38 GM (1) [id number] 07/10/23 08:07 GM Document 07/11/23 08:47 [place] [id number] 07/11/23 08:52 GM Document 07/25/23 08:42 GM 07/25/23 08:51 GM Edit Result 07/25/23 08:42 GM (2) 07/25/23 09:00 GM (1) #1- ABDOMINAL POST OP Superior - Debridement - Subq, 1st 20sq cm Yes => No (2) #2 Abdomen Inferior - Wound Comment(s) => donated theraskin used ID [id number] exp 09-30-2027 => ns id [id number] exp 04/24/26 06/27/23 07/11/23 07/25/23 11:38 08:47 08:42 Wound Center Nurse 2 #2 Abdomen Inferior -Time 11:39 08:49 08:46 -Correct Patient Yes Yes Yes -Correct Side, Site, Position Yes Yes Yes -Correct Procedure Yes Yes Yes -Procedure Performed Yes Yes Yes -Type of Procedure Debridement Debridement Debridement -Clinical Debridement Subcutaneous Subcutaneous Subcutaneous -Tissue Removed Subcutaneous Subcutaneous Subcutaneous -Post Debridement (cm) - Length 7.0 4.5 -Post Debridement (cm) - Width 1.3 0.7 -Post Debridement (cm) - Depth 0.1 0.1 -Total Square (Post) (cm) 9.10 3.15 -Area of Debridement (cm) - Length 7.0 4.5 -Area of Debridement (cm) - Width 1.3 0.7 -Total Square (Area) (cm) 9.10 3.15 -Tunneling No No No -Undermining/Tunneling No No No -Circular Undermining No No No -Wound/Ulcer Outcome Not Healed Not Healed Not Healed -Ulcer Cleansing Rinsed/ Rinsed/ Rinsed/ Irrigated with Irrigated with Irrigated with Saline Saline Saline -Foul Odor after Cleansing No No No -Bioengineered Tissue No No -Bleeding Controlled with Pressure Pressure Pressure -Treatment Response Procedure Procedure Procedure Tolerated Well Tolerated Well Tolerated Well -Debridement - Subq, 1st 20sq cm Yes No No -Wound Comment(s) donated theraskin used ID [id number] exp 09-30-2027 ns id [id number] exp 04/24/26 #1- ABDOMINAL POST OP Superior -Time 11:40 08:50 08:49 -Correct Patient Yes Yes Yes -Correct Side, Site, Position Yes Yes Yes -Correct Procedure Yes Yes Yes -Procedure Performed Yes Yes Yes -Type of Procedure Debridement Debridement Debridement -Clinical Debridement Subcutaneous Subcutaneous Subcutaneous -Tissue Removed Subcutaneous Subcutaneous Subcutaneous -Post Debridement (cm) - Length 3.0 2.5 2.7 -Post Debridement (cm) - Width 1.6 2.1 1.8 -Post Debridement (cm) - Depth 0.1 0.1 0.1 -Total Square (Post) (cm) 4.80 5.25 4.86 -Area of Debridement (cm) - Length 2.5 2.7 -Area of Debridement (cm) - Width 2.1 1.8 -Total Square (Area) (cm) 5.25 4.86 -Tunneling No No No -Undermining/Tunneling No No No -Circular Undermining No No No -Wound/Ulcer Outcome Not Healed Not Healed Not Healed -Ulcer Cleansing Rinsed/ Rinsed/ Rinsed/ Irrigated with Irrigated with Irrigated with Saline Saline Saline -Foul Odor after Cleansing No No No -Bioengineered Tissue No No No -Bleeding Controlled with Pressure Pressure Pressure -Treatment Response Procedure Procedure Procedure Tolerated Well Tolerated Well Tolerated Well -Debridement - Subq, 1st 20sq cm No Yes Yes Pain Scale: 0-10 Numeric Is Patient Pain Free? Yes Yes Yes WC - Nurse 3 - General Ulcer D/C NN Start: 06/27/23 11:17 Freq: Status: Active Protocol: Activity Type Activity Date Activity User E-sign Co-sign Detail Recorded Client Recorded Date Recorded By Document 06/27/23 11:45 GM Desktop 06/27/23 11:53 Document 07/11/23 08:58 RB wound center 07/11/23 08:59 RB Document 07/25/23 09:05 wound center 07/25/23 09:06 06/27/23 07/11/23 07/25/23 11:45 08:58 09:05 Wound Care Center Nurse 3 #2 Abdomen Inferior -Ulcer Cleansing Rinsed/ Irrigated with Saline -Primary Dressing Applied NonAdherent Contact Layer, Promogran -Other Dressing abd -Primary Dressing Covered/Secured with Dry Gauze, Secured with Tape -Promogran 1 #1- ABDOMINAL POST OP Superior -Ulcer Cleansing Not Cleansed -Foul Odor after Cleansing No -Primary Dressing Applied NonAdherent Contact Layer, Promogran Cinda Matter -Primary Dressing Covered/Secured with Dry Gauze, Secured with Tape -Promogran Cinda Matter 1 Treatment Response Procedure Tolerated Well Pain Scale: 0-10 Numeric Is Patient Pain Free? Yes Yes Yes WC - Visit Discharge Discharge Condition Stable Stable Stable Ambulatory Status Ambulatory Ambulatory Ambulatory Transportation Private Auto Private Auto Private Auto Medication Reconcilliation completed & No No provided to patient/care provider Clinical Summary of Care Provided Yes Yes Yes Additional Wound Wound debrided: Abdomen (inferior cluster) Type of Debridement: Excisional debridement Anesthesia Used: 5% Lidocaine Gel Depth: Down to and including healthy tissue and in the subcutaneous layer Percentage of wound debrided: 100 Instrument Used: 5mm curette Tissue Removed: Slough and devitalized tissue Severity: Fat Layer Exposed Amount of bleeding with debridement: Mild Bleeding Controlled with: Pressure Patient tolerated procedure: Patient tolerated procedure well Assessment/Plan Assessment/Plan (1) Non-healing surgical wound: CODE(S): T81.89XA - Other complications of procedures, not elsewhere classified, initial encounter (2) S/P colectomy: CODE(S): Z90.49 - Acquired absence of other specified parts of digestive tract (3) Colostomy in place: CODE(S): Z93.3 - Colostomy status (4) Type 2 diabetes mellitus: CODE(S): E11.9 - Type 2 diabetes mellitus without complications (5) Perforation of sigmoid colon due to diverticulitis: CODE(S): K57.20 - Diverticulitis of large intestine with perforation and abscess without bleeding PLAN: Plan Debridement done as documented above, procedure was well-tolerated. Second sample application of TheraSkin applied today using 100% of product. Covered with wound veil and secured with Steri-Strips. Leave in place for 2 weeks however, follow-up next week. ABD over top, advised that he could change outer dressings if soaked. Continue adequate protein intake, Vitamin C, D and Zinc. Continue optimal diabetes control. His questions were answered and he was advised to call if he had any further questions or concerns. Patient voiced understanding. Follow-up in a week. This note was generated with [employer] dictation software. It may contain incorrect words, spelling, and punctuation that were not noted in checking the note before signing.
== END 2023-07-26 23:59 | disposition home or self-care (01) ==
LOC: WC 08:30
PROVIDERS: PCP Internal Medicine; Referring Provider Internal Medicine; Visit Provider Internal Medicine
DX: T81.89XA Other complications of procedures, not elsewhere classified, initial encounter (principal); Z43.3 Encounter for attention to colostomy; E11.9 Type 2 diabetes mellitus without complications; K57.20 Diverticulitis of large intestine with perforation and abscess without bleeding; Z90.49 Acquired absence of other specified parts of digestive tract
CPT/HCPCS: 11042; 15271

== ENCOUNTER 2023-08-08 08:30 | Outpatient (RCR) | payer OTHER, SELFPAY ==
[2023-07-27 01:40] VITALS: BP 163/80; PULSE 82; RESP 18; TEMP 36.4; O2SAT 98; BMI 35.4
[2023-08-01 08:43] VITALS: BP 136/74; PULSE 70; RESP 18; BMI 35.4
--- NOTE | 2023-08-01 09:30 | PN.PCM_ITS ---
History of Present Illness Date of Service: 08/01/23 Chief Complaint: Non healing surgical wound History of Wound: Mr. Duque is a 61 yo who presents here due to non healing surgical wound. History of perforated diverticulitis necessitating partial colectomy and a diverting colostomy. Hospital stay also complicated by intra- abdominal abscess. Following his hospital stay in July, he was admitted at the TCU for rehabilitation at which time he had local wound care with [facility]. Was seen by his general surgeon about a week ago following which he was started on a wound VAC on Saturday. So far tolerating wound VAC well. Progress of Wound: No acute concerns at this time. Had another sample of Theraskin applied last week. He has had no concerns with this. Denies any significant drainage. Objective Data Objective Data Vital Signs: Vital Signs Temp Pulse Resp BP Pulse Ox O2 Del Method 97.6 F L 70 18 136/74 H 98 Room Air 07/27/23 01:40 08/01/23 08:43 08/01/23 08:43 08/01/23 08:43 07/27/23 01:40 08/01/23 08:43 Oxygen Delivery Method Room Air Weight: 233 lb Body Mass Index (BMI) 35.4 Charges/Coding Visit Charges Office Visits / Consults: 10983 OV L3 Est 20min Physical Exam Const alert, oriented x3 and no apparent distress General Appearance: cooperative, comfortable and well kempt HEENT normocephalic, head/scalp atraumatic and hearing grossly normal bilaterally Eyes PERRL and EOMs intact bilaterally General Eye: normal appearance of both eyes Neck full ROM and supple General: normal visual inspection Resp normal respiratory effort GI soft to palpation, non-tender and non-distended Skin Wounds: wounds noted Wound Narrative: Theraskin intact and in contact with wound bed. No drainage appreciated. Mild shearing of the wound veil. Neuro oriented x3, CN's II-XII intact bilaterally, moves all extremities and no focal motor deficits Psych mental status grossly normal, thought process normal and cooperative Debridement Note Debridement Note Post-Debridement Measurements and Additional Note: Post-Debridement Measurements/Treatment [id number] - Nurse 1 - General Ulcer Assessment Start: 08/01/23 08:43 Freq: Status: Active Protocol: JUSTIN Activity Type Activity Date Activity User E-sign Co-sign Detail Recorded Client Recorded Date Recorded By Document 08/01/23 08:43 [facility] 08/01/23 08:47 08/01/23 08:43 - Today's Visit Information Type of service Follow-up Visit (Physician/SEASONER HAND ) Arrival Mode Ambulatory Accompanied by Patient Identification Verified (Name & Yes ) Height and Weight Body Mass Index (BMI) 35.4 BMI Classification Obese Vital Signs Pulse Rate (60-100) 70 Pulse Location Monitor Respiratory Rate (12-18) 18 Respiratory rate source Observation Oxygen Delivery Method Room Air Blood Pressure (90/60-120/80) 136/74 H Blood Pressure Mean (mm Hg) 94 Source Monitor Position Sitting Blood Pressure Location Left Arm History Since Last Visit- (Skip if this is Patient's initial visit) Have you changed medications since your No last visit? Any new allergies or adverse reactions No Had a fall/change in ADL's that may No increase risk of falls Signs or symptoms of abuse and/or No neglect since last visit Have you been in the hospital since your No last visit? Has dressing in place as prescribed Yes Has compression in place as prescribed N/A Has offloadiing in place as prescribed N/A Experienced any changes in pain level or No management Pain Scale: 0-10 Numeric Is Patient Pain Free? Yes - Nurse 1 - General Ulcer Measurement Start: 08/01/23 08:43 Freq: Status: Active Protocol: Activity Type Activity Date Activity User E-sign Co-sign Detail Recorded Client Recorded Date Recorded By Document 08/01/23 08:43 [facility] 08/01/23 08:47 08/01/23 08:43 Wound Center Nurse 1 #2 Abdomen Inferior -Combined with other wound No -Current Size (cm) - Length 0.1 -Current Size (cm) - Width 0.1 -Current Size (cm) - Depth 0.1 -Total Square Cm 0.01 -Epithelialization Large 67-100% -Tunneling No -Undermining/Tunneling No -Circular Undermining No -Exudate Amt Small -Exudate Type Serosanguineous -Wound Margin Distinct, Outline Attached -Wound Comment(s) theraskin still intact #1- ABDOMINAL POST OP Superior -Combined with (Name of Wound-Exactly 0.1 as it is documented) -Current Size (cm) - Length 0.1 -Current Size (cm) - Width 0.1 -Total Square Cm 0.01 -Photo Taken No -Epithelialization Large 67-100% -Exudate Amt Small -Exudate Type Serosanguineous -Wound Margin Distinct, Outline Attached -Wound Comment(s) theraskin still intact - Nurse 2 - General Ulcer CM Notes Start: 08/01/23 08:43 Freq: Status: Active Protocol: Activity Type Activity Date Activity User E-sign Co-sign Detail Recorded Client Recorded Date Recorded By Document 08/01/23 09:13 [facility] 08/01/23 09:15 08/01/23 09:13 Wound Center Nurse 2 #2 Abdomen Inferior -Time 09:14 -Correct Patient Yes -Correct Side, Site, Position Yes -Wound/Ulcer Outcome Not Healed -Wound Comment(s) theraskin reinforced #1- ABDOMINAL POST OP Superior -Time 09:15 -Correct Patient Yes -Correct Side, Site, Position Yes -Wound/Ulcer Outcome Not Healed -Wound Comment(s) Theraskin reinforced Pain Scale: 0-10 Numeric Is Patient Pain Free? Yes Assessment/Plan Assessment/Plan (1) Non-healing surgical wound: CODE(S): T81.89XA - Other complications of procedures, not elsewhere classified, initial encounter (2) S/P colectomy: CODE(S): Z90.49 - Acquired absence of other specified parts of digestive tract (3) Colostomy in place: CODE(S): Z93.3 - Colostomy status (4) Type 2 diabetes mellitus: CODE(S): E11.9 - Type 2 diabetes mellitus without complications (5) Perforation of sigmoid colon due to diverticulitis: CODE(S): K57.20 - Diverticulitis of large intestine with perforation and abscess without bleeding PLAN: Plan Debridement done as documented above, procedure was well-tolerated. As above, TheraSkin still largely in place and in contact with wound bed. Wound veil reinforced. Leave in place for another week. Continue adequate protein intake, Vitamin C, D and Zinc. Continue optimal diabetes control. His questions were answered and he was advised to call if he had any further questions or concerns. Patient voiced understanding. Follow-up in a week. This note was generated with [email or web address] software. It may contain incorrect words, spelling, and punctuation that were not noted in checking the note before signing.
[2023-08-08 08:38] VITALS: BP 148/78; PULSE 69; RESP 18; TEMP 35.6; BMI 35.4
--- NOTE | 2023-08-08 09:02 | PCM.WC.PN ---
History of Present Illness Date of Service: 08/08/23 Chief Complaint: Non healing surgical wound History of Wound: Mr. Duque is a 61 yo who presents here due to non healing surgical wound. History of perforated diverticulitis necessitating partial colectomy and a diverting colostomy. Hospital stay also complicated by intra-abdominal abscess. Following his hospital stay in July, he was admitted at the TCU for rehabilitation at which time he had local wound care with [facility]. Was seen by his general surgeon about a week ago following which he was started on a wound VAC on Saturday. So far tolerating wound VAC well. Progress of Wound: No acute concerns at this time. Had second sample of TheraSkin on for the last 2 weeks. No new concerns reported. Denies any significant drainage. Objective Data Objective Data Vital Signs: Vital Signs Temp Pulse Resp BP Pulse Ox O2 Del Method 96.1 F L 69 18 148/78 H 98 Room Air 08/08/23 08:38 08/08/23 08:38 08/08/23 08:38 08/08/23 08:38 07/27/23 01:40 08/01/23 08:43 Oxygen Delivery Method Room Air Weight: 233 lb Body Mass Index (BMI) 35.4 Charges/Coding Procedures Integumentary 111xxx-113xx: 79300 Hannah subq tissue 20 sq cm/< Physical Exam Const alert, oriented x3 and no apparent distress General Appearance: cooperative, comfortable and well kempt HEENT normocephalic, head/scalp atraumatic and hearing grossly normal bilaterally Eyes PERRL and EOMs intact bilaterally General Eye: normal appearance of both eyes Neck full ROM and supple General: normal visual inspection Resp normal respiratory effort GI non-tender and non-distended Skin Wounds: wounds noted bed granulating well, no odor and open Neuro oriented x3, CN's II-XII intact bilaterally, moves all extremities and no focal motor deficits Psych mental status grossly normal, thought process normal and cooperative Debridement Note Debridement Note Wound debrided: Abdominal (superior) Type of Debridement: Excisional debridement Anesthesia Used: 4% Lidocaine Solution Depth: Down to and including healthy tissue and in the subcutaneous layer Percentage of wound debrided: 100 Instrument Used: 5mm curette Tissue Removed: Slough and devitalized tissue Severity: Fat Layer Exposed Amount of bleeding with debridement: Mild Bleeding Controlled with: Pressure Patient tolerated procedure: Patient tolerated procedure well Post-Debridement Measurements and Additional Note: Post-Debridement Measurements/Treatment WC - Nurse 1 - General Ulcer Assessment Start: 08/01/23 08:43 Freq: Status: Active Protocol: JUSTIN Activity Type Activity Date Activity User E-sign Co-sign Detail Recorded Client Recorded Date Recorded By Document 08/01/23 08:43 GM 08/01/23 08:47 GM Document 08/08/23 08:38 RB [email or web address] 08/08/23 08:41 RB 08/01/23 08/08/23 08:43 08:38 - Today's Visit Information Type of service Follow-up Visit Follow-up Visit (Physician/CHILLER TENDER (Physician/CHILLER TENDER ) ) Arrival Mode Ambulatory Ambulatory Transfer Assistance None Accompanied by Patient Identification Verified (Name & Yes Yes ) Patient Requires Transmission-Based No Precautions Height and Weight Body Mass Index (BMI) 35.4 35.4 BMI Classification Obese Obese Vital Signs Temperature (97.8 F-99.1 F) 96.1 F L Temperature Source Temporal Pulse Rate (60-100) 70 69 Pulse Location Monitor Monitor Respiratory Rate (12-18) 18 18 Respiratory rate source Observation Observation Oxygen Delivery Method Room Air Blood Pressure (90/60-120/80) 136/74 H 148/78 H Blood Pressure Mean (mm Hg) 94 101 Source Monitor Monitor Position Sitting Semi-Fowlers Blood Pressure Location Left Arm Left Arm History Since Last Visit- (Skip if this is Patient's initial visit) Have you changed medications since your No No last visit? Any new allergies or adverse reactions No No Had a fall/change in ADL's that may No No increase risk of falls Signs or symptoms of abuse and/or No No neglect since last visit Have you been in the hospital since your No No last visit? Has dressing in place as prescribed Yes Yes Has compression in place as prescribed N/A No Has offloadiing in place as prescribed N/A No Experienced any changes in pain level or No No management Pain Scale: 0-10 Numeric Is Patient Pain Free? Yes Yes [id number] - Nurse 1 - General Ulcer Measurement Start: 08/01/23 08:43 Freq: Status: Active Protocol: Activity Type Activity Date Activity User E-sign Co-sign Detail Recorded Client Recorded Date Recorded By Document 08/01/23 08:43 GM 08/01/23 08:47 GM Document 08/08/23 08:38 RB [email or web address] 08/08/23 08:41 RB 08/01/23 08/08/23 08:43 08:38 Wound Center Nurse 1 #2 Abdomen Inferior -Combined with other wound No No -Current Size (cm) - Length 0.1 0.1 -Current Size (cm) - Width 0.1 0.1 -Current Size (cm) - Depth 0.1 0.1 -Total Square Cm 0.01 0.01 -Photo Taken Yes -Epithelialization Large 67-100% -Tunneling No No -Undermining/Tunneling No No -Circular Undermining No No -Exudate Amt Small Medium -Exudate Type Serosanguineous Serosanguineous -Wound Margin Distinct, Distinct, Outline Outline Attached Attached -Granulation Amt Medium (34-66%) -Granulation Quality [place] -Slough/Fibrin Yes -Necrosis Amt Medium (34-66%) -Necrotic Tissue Type Adherent Slough -Structure Exposed N/A -Texture (Matilde-wound Skin Appearance) Assessed, Scarring -Moisture (Matilde-wound Skin Appearance) Assessed -Color (Matilde-wound Skin Appearance) Assessed -Temperature (Matilde-wound Skin No Abnormality Appearance) (Pt Warm) -Tenderness on Palpation (Matilde-wound No Skin Appearance) -Ulcer Cleansing Wound Cleanser -Foul Odor after Cleansing No -Anesthetic Used 4% Lidocaine Solution -Wound Comment(s) theraskin still intact #1- ABDOMINAL POST OP Superior -Combined with other wound No -Combined with (Name of Wound-Exactly 0.1 as it is documented) -Current Size (cm) - Length 0.1 0.1 -Current Size (cm) - Width 0.1 0.1 -Current Size (cm) - Depth 0.1 -Total Square Cm 0.01 0.01 -Photo Taken No Yes -Epithelialization Large 67-100% -Tunneling No -Undermining/Tunneling No -Circular Undermining No -Exudate Amt Small Medium -Exudate Type Serosanguineous Serosanguineous -Wound Margin Distinct, Distinct, Outline Outline Attached Attached -Granulation Amt Medium (34-66%) -Granulation Quality [place] -Slough/Fibrin Yes -Necrosis Amt Medium (34-66%) -Necrotic Tissue Type Adherent Slough -Structure Exposed N/A -Texture (Matilde-wound Skin Appearance) Assessed, Scarring -Moisture (Matilde-wound Skin Appearance) Assessed -Color (Matilde-wound Skin Appearance) Assessed -Temperature (Matilde-wound Skin No Abnormality Appearance) (Pt Warm) -Tenderness on Palpation (Matilde-wound No Skin Appearance) -Ulcer Cleansing Wound Cleanser -Foul Odor after Cleansing No -Anesthetic Used 4% Lidocaine Solution -Wound Comment(s) migdalia still intact - Nurse 2 - General Ulcer CM Notes Start: 08/01/23 08:43 Freq: Status: Active Protocol: Activity Type Activity Date Activity User E-sign Co-sign Detail Recorded Client Recorded Date Recorded By Document 08/01/23 09:13 [facility] 08/01/23 09:15 GM Document 08/08/23 08:46 [facility] 08/08/23 08:53 GM 08/01/23 08/08/23 09:13 08:46 Wound Center Nurse 2 #2 Abdomen Inferior -Time 09:14 08:46 -Correct Patient Yes Yes -Correct Side, Site, Position Yes Yes -Correct Procedure Yes -Procedure Performed Yes -Type of Procedure Debridement -Clinical Debridement Subcutaneous -Tissue Removed Subcutaneous -Post Debridement (cm) - Length 2.9 -Post Debridement (cm) - Width 0.7 -Post Debridement (cm) - Depth 0.1 -Total Square (Post) (cm) 2.03 -Area of Debridement (cm) - Length 2.9 -Area of Debridement (cm) - Width 0.7 -Total Square (Area) (cm) 2.03 -Tunneling No -Undermining/Tunneling No -Circular Undermining No -Wound/Ulcer Outcome Not Healed Not Healed -Ulcer Cleansing Rinsed/ Irrigated with Saline -Foul Odor after Cleansing No -Bioengineered Tissue No -Bleeding Controlled with Pressure -Treatment Response Procedure Tolerated Well -Debridement - Subq, 1st 20sq cm Yes -Wound Comment(s) theraustinin reinforced #1- ABDOMINAL POST OP Superior -Time 09:15 08:47 -Correct Patient Yes Yes -Correct Side, Site, Position Yes Yes -Correct Procedure Yes -Procedure Performed Yes -Type of Procedure Debridement -Clinical Debridement Subcutaneous -Tissue Removed Subcutaneous -Post Debridement (cm) - Length 2.9 -Post Debridement (cm) - Width 1.8 -Post Debridement (cm) - Depth 0.1 -Total Square (Post) (cm) 5.22 -Area of Debridement (cm) - Length 2.9 -Area of Debridement (cm) - Width 1.8 -Total Square (Area) (cm) 5.22 -Tunneling No -Undermining/Tunneling No -Circular Undermining No -Wound/Ulcer Outcome Not Healed Not Healed -Ulcer Cleansing Rinsed/ Irrigated with Saline -Foul Odor after Cleansing No -Bioengineered Tissue No -Bleeding Controlled with Pressure -Treatment Response Procedure Tolerated Well -Debridement - Subq, 1st 20sq cm No -Wound Comment(s) Migdalia reinforced Pain Scale: 0-10 Numeric Is Patient Pain Free? Yes Yes - Nurse 3 - General Ulcer D/C NN Start: 08/01/23 08:43 Freq: Status: Active Protocol: Activity Type Activity Date Activity User E-sign Co-sign Detail Recorded Client Recorded Date Recorded By Document 08/01/23 09:36 GM 08/01/23 09:37 08/01/23 09:36 Wound Care Center Nurse 3 #2 Abdomen Inferior -Ulcer Cleansing Not Cleansed -Primary Dressing Covered/Secured with Secured with Tape,Other -Other Covering Abd pad #1- ABDOMINAL POST OP Superior -Ulcer Cleansing Not Cleansed -Foul Odor after Cleansing No -Primary Dressing Covered/Secured with Secured with Tape,Other -Other Covering abd pad Pain Scale: 0-10 Numeric Is Patient Pain Free? Yes - Visit Discharge Discharge Condition Stable Ambulatory Status Ambulatory Transportation Private Auto Clinical Summary of Care Provided Yes Additional Wound Wound debrided: Abdominal (inferior cluster) Type of Debridement: Excisional debridement Anesthesia Used: 4% Lidocaine Solution Depth: Down to and including healthy tissue and in the subcutaneous layer Percentage of wound debrided: 100 Instrument Used: 5mm curette Tissue Removed: Slough and devitalized tissue Severity: Fat Layer Exposed Amount of bleeding with debridement: Mild Bleeding Controlled with: Pressure Patient tolerated procedure: Patient tolerated procedure well Assessment/Plan Assessment/Plan (1) Non-healing surgical wound: CODE(S): T81.89XA - Other complications of procedures, not elsewhere classified, initial encounter (2) S/P colectomy: CODE(S): Z90.49 - Acquired absence of other specified parts of digestive tract (3) Colostomy in place: CODE(S): Z93.3 - Colostomy status (4) Type 2 diabetes mellitus: CODE(S): E11.9 - Type 2 diabetes mellitus without complications (5) Perforation of sigmoid colon due to diverticulitis: CODE(S): K57.20 - Diverticulitis of large intestine with perforation and abscess without bleeding PLAN: Plan Debridement done as documented above, procedure was well-tolerated. Theraskin taken off without incident. Inferior ulcer with better progress than superior, good granulation tissue in both.. Patient is scheduled for surgery in a few days. We talked about optimal diabetes control to avoid wound breakdown, he voiced understanding. Last A1c was around 7 and his fasting blood glucose readings have been around 140-150. Goal fasting blood glucose reading discussed. Continue Promogran daily and cover with Adaptic. Continue optimal protein intake. His questions were answered and he was advised to call if he had any further questions or concerns. Discharge from the wound center, plan is for closure following colostomy reversal. This note was generated with [employer] dictation software. It may contain incorrect words, spelling, and punctuation that were not noted in checking the note before signing.
== END 2023-08-09 09:51 | disposition home or self-care (01) ==
LOC: WC 08:30
PROVIDERS: PCP Internal Medicine; Referring Provider Internal Medicine; Visit Provider Internal Medicine
DX: T81.89XA Other complications of procedures, not elsewhere classified, initial encounter (principal); Z93.3 Colostomy status; E11.9 Type 2 diabetes mellitus without complications; K57.20 Diverticulitis of large intestine with perforation and abscess without bleeding; Z90.49 Acquired absence of other specified parts of digestive tract
CPT/HCPCS: 11042; 99213; G0463

== ENCOUNTER 2023-10-24 08:45 | Outpatient (RCR) | payer OTHER, SELFPAY ==
[2023-09-26 09:07] VITALS: BP 152/89; PULSE 104; RESP 16; TEMP 36.6; BMI 36.9
--- NOTE | 2023-09-26 10:58 | PCM.WC.HP ---
History of Present Illness Date of Service: 09/26/23 Chief Complaint: Non healing surgical wound History of Wound: Mr. Duque is a 62 yo well-known to me. Last seen here over a month ago. He had been discharged due to plan for closure following colostomy reversal. Surgery was uneventful however, less than a week after surgery, he states that his wound breakdown/dehisced. Initially applied Dakin's dressing but subsequently, started a wound VAC. Since starting wound VAC, he states that there has been much better improvement. Currently set at 150 mmHg. History of diabetes mellitus which is well-controlled. He reports good protein intake. He feels well and denies any acute concerns at this time. [facility] Medical History (Updated 09/26/23 @ 11:[address] Estrella Puga MD) Type 2 diabetes mellitus [address] in place Non-healing surgical wound Debility Pneumonia due to COVID-19 virus Acute respiratory failure with hypoxia Acute kidney injury Left inguinal hernia Hypertension Diverticulosis Diabetes mellitus Asthma Perforation of sigmoid colon due to diverticulitis Home Medications ?Medication ?Instructions ?Recorded ?Last Taken ?Type acetaminophen 500 mg tablet 500 mg PO Q6H PRN pain (scale 09/12/22 Unknown History score 1-3) insulin NPH isoph U-100 human 100 6 unit subcut BID Diabetes 09/12/22 09/12/22 08:35 History unit/mL (3 mL) subcutaneous pen (Humulin N NPH U-100 Insulin KwikPen) losartan 100 mg tablet (Cozaar) 100 mg PO DAILY Blood pressure 09/12/22 09/12/22 12:30 History pantoprazole 40 mg tablet,delayed 40 mg PO BID GERD 09/12/22 Unknown History release polyethylene glycol 3350 17 gram 17 g PO DAILY Constipation 09/12/22 09/12/22 08:35 History oral powder packet ascorbic acid (vitamin C) 500 mg 500 mg PO BREAKFAST 30 days #30 09/25/22 Unknown Rx tablet tabs polysaccharide iron complex 150 mg 150 mg PO DAILY 30 days #30 caps 09/25/22 Unknown Rx iron capsule (Ferrex) cefdinir 300 mg capsule 300 mg PO Q12H #14 caps 12/04/22 Unknown Rx metronidazole 500 mg tablet 500 mg PO TID #21 tabs 12/04/22 Unknown Rx IC CANDESARTA 02/21/23 Unknown History amoxicillin 875 mg-potassium 1 tab PO BID 03/28/23 Unknown History clavulanate 125 mg tablet candesartan 32 mg tablet (Atacand) 32 mg PO DAILY 03/28/23 Unknown History hydrochlorothiazide 25 mg tablet 25 mg PO DAILY 03/28/23 Unknown History sitagliptin phosphate 50 1 tab PO BID 03/28/23 Unknown History mg-metformin 500 mg tablet (Janumet) amlodipine 5 mg tablet 5 mg PO DAILY 05/09/23 Unknown History metoprolol succinate 50 mg capsule 50 mg PO DAILY 07/11/23 Unknown History sprinkle, ext. release 24 hr Allergy/AdvReac Type Severity Reaction Status Date / Time aspirin Allergy Intermediate Hives Verified 10/04/22 08:20 Poultry Allergy Unknown Other Verified 10/04/22 08:20 iodine Allergy Shortness Verified 10/04/22 08:20 of breath Family History (Updated 09/12/22 @ 21:[address] Dennis Menezes MD) Mother Breast cancer Father Myocardial infarction Hypertension Colon cancer Grandmother Diabetes Grandfather Diabetes Surgical History (Updated 09/26/23 @ 11:[address] Estrella Puga MD) History of colostomy reversal S/P colectomy History of left inguinal hernia repair History of tooth extraction History of excision of dermoid cyst Social History (Updated 09/12/22 @ 21:[address] Dennis Menezes MD) household members: spouse Smoking Status: Never smoker alcohol intake: never substance use type: does not use ROS Constitutional Constitutional: Denies chills, fever(s), lethargy, malaise or weight gain Eyes Eyes: Denies bloody eye, blurry vision, burning, change in eye color, change in vision or loss of vision ENT HEENT: Denies dental pain, disequillibrium, dizziness, headache(s), nasal congestion or nasal discharge Cardiovascular Cardiovascular: Denies chest pain, cold extremities, diaphoresis, dizziness or palpitations Respiratory/Chest Respiratory/Chest: Denies change in phlegm color, chest congestion, chest tightness, cough, excessive phlegm production or shortness of breath with exertion Gastrointestinal Gastrointestinal: Denies abdominal pain, chewing difficulty, cramping, dry heaves, nausea or vomiting Genitourinary Genitourinary: Denies abdominal discomfort, dysuria or flank pain Musculoskeletal Musculoskeletal: Denies abnormal gait, extremity pain, joint pain, joint swelling, muscle cramps or muscle weakness Integumentary Integumentary: Denies dry skin, furuncle, hirsutism, jaundice, rash, skin swelling or wounds Neurologic Neurologic: Denies abnormal movements, behavior changes, burning sensations, focal weakness, headache(s), numbness or tingling Psychiatric Psychiatric: Denies anxiety, auditory hallucinations, depression, homicidal ideation or suicidal ideation Endocrine Endocrinology: Denies cold intolerance, deepening of the voice, excessive sweating, heat intolerance or increase in ring/shoe/hat size Allergic/Immunologic Allergic/Immunologic: Denies itchy eyes, lip swelling, throat swelling, tongue swelling, hives, urticaria or wheezing Vital Signs Vital Signs Vital Signs: 09/26/23 09:07 Temperature 97.8 F Temperature Source Temporal Pulse Rate 104 H Respiratory Rate 16 Blood Pressure 152/89 H Blood Pressure Mean 110 Blood Pressure Source Monitor Blood Pressure Position Sitting Blood Pressure Location Left Arm Weight Weight: 250 lb Body Mass Index (BMI) 36.9 Physical Exam Const alert, oriented x3 and no apparent distress General Appearance: cooperative, comfortable and well kempt HEENT normocephalic, head/scalp atraumatic and hearing grossly normal bilaterally Eyes PERRL and EOMs intact bilaterally General Eye: normal appearance of both eyes Neck full ROM and supple General: normal visual inspection Resp normal respiratory effort and normal air movement GI non-tender and non-distended Skin Wounds: wounds noted size Size: See clinical note., bed granulating well and with undermining, margins well defined, no odor and open Neuro oriented x3, CN's II-XII intact bilaterally, moves all extremities and no focal motor deficits Psych mental status grossly normal, thought process normal and cooperative Debridement Note Debridement Note Wound debrided: Abdominal (superior) Type of Debridement: Excisional debridement Anesthesia Used: 4% Lidocaine Solution Depth: Down to and including healthy tissue and in the subcutaneous layer Percentage of wound debrided: 100 Instrument Used: 7mm curette Tissue Removed: Slough and devitalized tissue Severity: Fat Layer Exposed Amount of bleeding with debridement: Mild Bleeding Controlled with: Pressure Patient tolerated procedure: Patient tolerated procedure well Post-Debridement Measurements and Additional Note: Post-Debridement Measurements/Treatment JYOTHI - Nurse 1 - General Ulcer Assessment Start: 09/26/23 09:07 Freq: Status: Active Protocol: WC.LOWEXT Activity Type Activity Date Activity User E-sign Co-sign Detail Recorded Client Recorded Date Recorded By Document 09/26/23 09:07 JF 000 09/26/23 09:18 09/26/23 09:07 - Today's Visit Information Type of service Initial Visit Arrival Mode Ambulatory Accompanied by Patient Identification Verified (Name & Yes ) Patient Requires Transmission-Based No Precautions Finger Stick Blood Sugar(mg/dl) (if 120 indicated): Blood Sugar Stated by Patient Height and Weight Height 5 ft 9 in Weight 250 lb Weight in Pounds 250.0 lbs Weight Measurement Method Estimated by Patient Body Mass Index (BMI) 36.9 BMI Classification Obese BSA - Taya 2.27 Vital Signs Temperature (97.8 F-99.1 F) 97.8 F Temperature Source Temporal Pulse Rate (60-100) 104 H Pulse Location Monitor Respiratory Rate (12-18) 16 Respiratory rate source Observation Blood Pressure (90/60-120/80) 152/89 H Blood Pressure Mean 110 Source Monitor Position Sitting Blood Pressure Location Left Arm History Since Last Visit- (Skip if this is Patient's initial visit) Left Footwear Regular Shoe Right Footwear Regular Shoe Pain Scale: 0-10 Numeric Is Patient Pain Free? Yes - Nurse 1 - General Ulcer Measurement Start: 09/26/23 09:07 Freq: Status: Active Protocol: Activity Type Activity Date Activity User E-sign Co-sign Detail Recorded Client Recorded Date Recorded By Document 09/26/23 09:07 JF 000 09/26/23 09:18 09/26/23 09:07 Wound Center Nurse 1 4-ABDOMEN INFERIOR -Combined with other wound No -Current Size (cm) - Length 6.6 -Current Size (cm) - Width 3.7 -Current Size (cm) - Depth 1.7 -Total Square Cm 24.42 -Photo Taken Yes -Epithelialization Small 1-33% -Tunneling No -Undermining/Tunneling Yes -Undermining/Tunneling Starts (O'clock 2 ) -Undermining/Tunneling Ends (O'clock) 3 -Maximum Distance (cm) 2.7 -Circular Undermining No -Exudate Amt Medium -Exudate Type Serosanguineous -Wound Margin Flat & Intact -Granulation Amt Large (67-100%) -Granulation Quality Red -Slough/Fibrin Yes -Necrosis Amt Small (1-33%) -Necrotic Tissue Type Adherent Slough -Structure Exposed N/A -Texture (Matilde-wound Skin Appearance) Assessed, Localized Edema -Moisture (Matilde-wound Skin Appearance) Assessed,Dry/ Scaly -Color (Matilde-wound Skin Appearance) Assessed -Temperature (Matilde-wound Skin No Abnormality Appearance) (Pt Warm) -Tenderness on Palpation (Matilde-wound No Skin Appearance) -Ulcer Cleansing Wound Cleanser -Foul Odor after Cleansing No -Anesthetic Used 5% Lidocaine Gel 3-ABDOMEN SUPERIOR -Combined with other wound No -Current Size (cm) - Length 6.9 -Current Size (cm) - Width 4.4 -Current Size (cm) - Depth 1.2 -Total Square Cm 30.36 -Photo Taken Yes -Epithelialization Small 1-33% -Tunneling No -Undermining/Tunneling Yes -Undermining/Tunneling Starts (O'clock 3 ) -Undermining/Tunneling Ends (O'clock) 5 -Maximum Distance (cm) 1.8 -Circular Undermining No -Classification - Thickness Full Thickness without Exposed Support Structure -Exudate Amt Medium -Exudate Type Serosanguineous -Wound Margin Flat & Intact -Granulation Amt Large (67-100%) -Granulation Quality Red -Slough/Fibrin Yes -Necrosis Amt Small (1-33%) -Necrotic Tissue Type Adherent Slough -Structure Exposed N/A -Texture (Matilde-wound Skin Appearance) Assessed -Moisture (Matilde-wound Skin Appearance) Assessed,Dry/ Scaly -Color (Matilde-wound Skin Appearance) Assessed -Temperature (Matilde-wound Skin No Abnormality Appearance) (Pt Warm) -Tenderness on Palpation (Matilde-wound No Skin Appearance) -Ulcer Cleansing Wound Cleanser -Foul Odor after Cleansing No -Anesthetic Used 5% Lidocaine Gel Lower Limb Edema Present NA WC - Nurse 2 - General Ulcer CM Notes Start: 09/26/23 09:07 Freq: Status: Active Protocol: Activity Type Activity Date Activity User E-sign Co-sign Detail Recorded Client Recorded Date Recorded By Document 09/26/23 09:34 CP 09/26/23 09:45 CP 09/26/23 09:34 Wound Center Nurse 2 4-ABDOMEN INFERIOR -Time 09:35 -Correct Patient Yes -Correct Side, Site, Position Yes -Correct Procedure Yes -Procedure Performed Yes -Type of Procedure Debridement -Clinical Debridement Subcutaneous -Tissue Removed Subcutaneous -Post Debridement (cm) - Length 7 -Post Debridement (cm) - Width 3.8 -Post Debridement (cm) - Depth 1.6 -Total Square (Post) (cm) 26.6 -Area of Debridement (cm) - Length 7 -Area of Debridement (cm) - Width 3.8 -Total Square (Area) (cm) 26.6 -Undermining/Tunneling Yes -Undermining/Tunneling Starts (O'clock 12 ) -Undermining/Tunneling Ends (O'clock) 2 -Maximum Distance (cm) 3 -Wound/Ulcer Outcome Not Healed -Ulcer Cleansing Rinsed/ Irrigated with Saline -Foul Odor after Cleansing No -Bleeding Controlled with Pressure -Treatment Response Procedure Tolerated Well -Debridement - Subq, 1st 20sq cm Yes -Debridement, SubQ, ea addt'l 20sq cm 1 or part thereof 3-ABDOMEN SUPERIOR -Time 09:37 -Correct Patient Yes -Correct Side, Site, Position Yes -Correct Procedure Yes -Procedure Performed Yes -Type of Procedure Debridement -Clinical Debridement Subcutaneous -Tissue Removed Subcutaneous -Post Debridement (cm) - Length 7 -Post Debridement (cm) - Width 4.3 -Post Debridement (cm) - Depth 2.2 -Total Square (Post) (cm) 30.1 -Area of Debridement (cm) - Length 7 -Area of Debridement (cm) - Width 4.3 -Total Square (Area) (cm) 30.1 -Undermining/Tunneling Yes -Undermining/Tunneling Starts (O'clock 3 ) -Undermining/Tunneling Ends (O'clock) 5 -Maximum Distance (cm) 2 -Wound/Ulcer Outcome Not Healed -Ulcer Cleansing Rinsed/ Irrigated with Saline -Foul Odor after Cleansing No -Bleeding Controlled with Pressure -Treatment Response Procedure Tolerated Well -Debridement - Subq, 1st 20sq cm Yes -Debridement, SubQ, ea addt'l 20sq cm 1 or part thereof Pain Scale: 0-10 Numeric Is Patient Pain Free? Yes WC - Nurse 3 - General Ulcer D/C NN Start: 09/26/23 09:07 Freq: Status: Active Protocol: Activity Type Activity Date Activity User E-sign Co-sign Detail Recorded Client Recorded Date Recorded By Document 09/26/23 10:01 JF 000 09/26/23 10:02 JF 09/26/23 10:01 Wound Care Center Nurse 3 4-ABDOMEN INFERIOR -Ulcer Cleansing Rinsed/ Irrigated with Saline -Foul Odor after Cleansing No -Negative Pressure Wound Therapy Continue -Setting (mmHg) 150 -Negative Pressure is Continuous -NPWT Application Charge NPWT > 50 sq cm ($) 3-ABDOMEN SUPERIOR -Ulcer Cleansing Rinsed/ Irrigated with Saline -Foul Odor after Cleansing No -Negative Pressure Wound Therapy Continue -Setting (mmHg) 150 -Negative Pressure is Continuous -NPWT Application Charge NPWT - Multiple Locations Pain Scale: 0-10 Numeric Is Patient Pain Free? Yes WC - Visit Discharge Discharge Condition Stable Ambulatory Status Ambulatory Transportation Private Auto Accompanied by Medication Reconcilliation completed & Yes provided to patient/care provider Clinical Summary of Care Provided Yes Additional Wound Wound debrided: Abdominal (inferior) Type of Debridement: Excisional debridement Anesthesia Used: 4% Lidocaine Solution Depth: Down to and including healthy tissue and in the subcutaneous layer Percentage of wound debrided: 100 Instrument Used: 7mm curette Tissue Removed: Slough and devitalized tissue Severity: Fat Layer Exposed Amount of bleeding with debridement: Mild Bleeding Controlled with: Pressure Patient tolerated procedure: Patient tolerated procedure well Charges/Coding Visit Charges Office Visits / Consults: [id number] OV L3 Est 20min Procedures Integumentary [id number]: [id number] Hannah subq tissue 20 sq cm/< Add On Codes: [id number] Hannah subq tissue add-on (x1. Additional Sq Cm debrided, please refer to clinical note.) Assessment/Plan Assessment/Plan (1) Non-healing surgical wound: CODE(S): T81.89XA - Other complications of procedures, not elsewhere classified, initial encounter QUALIFIERS: Encounter type: initial encounter Qualified Code(s): T81.89XA - Other complications of procedures, not elsewhere classified, initial encounter (2) Type 2 diabetes mellitus: CODE(S): E11.9 - Type 2 diabetes mellitus without complications (3) History of colostomy reversal: CODE(S): Z98.890 - Other specified postprocedural states PLAN: Plan Debridement done as documented above, procedure was well-tolerated. As above, wound breakdown following colostomy reversal. Initially Dakin's dressing but has had a wound VAC for couple weeks. Wound has done better with the wound VAC per patient. Denies any significant pain or concerns at this time. Undermining present. Continue wound VAC at 150 mmHg, change every other day. Continue optimal diabetes control and dietary protein intake. Continue other chronic wound care management. His questions were answered and he was advised to let us know if he has any further questions or concerns. Follow-up in a week or sooner if needed. This note was generated with [employer] dictation software. It may contain incorrect words, spelling, and punctuation that were not noted in checking the note before signing.
--- NOTE | 2023-09-27 08:33 | WC ---
PHOTO 09/26/23 ABD SUPERIOR
--- NOTE | 2023-09-27 08:34 | WC ---
PHOTO 09/26/23 ABD INT
--- NOTE | 2023-09-30 09:22 | WC ---
PHOTO 09/26/23 ABNER COLEMAN
--- NOTE | 2023-09-30 09:29 | WC ---
photo 09/26/23 abd
--- NOTE | 2023-10-01 13:09 | WC ---
Home health nurse Kathie called in today requesting a vac holiday d/t pt periwound being excoriated. This nurse contacted Dr. Puga and she agreed to vac holiday. Start either Dakins soaked gauze or Aquacel, cover with dry gauze and tape. Continue new orders until next office visit on 10/03/23.
[2023-10-03 08:26] VITALS: BP 146/79; PULSE 90; RESP 18; TEMP 35.9; BMI 36.9
--- NOTE | 2023-10-03 09:17 | PCM.WC.PN ---
History of Present Illness Date of Service: 10/03/23 Chief Complaint: Non healing surgical wound History of Wound: Mr. Duque is a 62 yo well-known to me. Last seen here over a month ago. He had been discharged due to plan for closure following colostomy reversal. Surgery was uneventful however, less than a week after surgery, he states that his wound breakdown/dehisced. Initially applied Dakin's dressing but subsequently, started a wound VAC. Since starting wound VAC, he states that there has been much better improvement. Currently set at 150 mmHg. History of diabetes mellitus which is well-controlled. He reports good protein intake. He feels well and denies any acute concerns at this time. Progress of Wound: Has had a VAC break due to periwound irritation. This is said to have improved. Has been using Dakin's in the interim. No acute concerns otherwise. Objective Data Objective Data Vital Signs: Vital Signs Temp Pulse Resp BP O2 Del Method 96.7 F L 90 18 146/79 H Room Air 10/03/23 08:26 10/03/23 08:26 10/03/23 08:26 10/03/23 08:26 10/03/23 08:26 Oxygen Delivery Method Room Air Weight: 250 lb Body Mass Index (BMI) 36.9 Charges/Coding Procedures Integumentary 111xxx-113xx: [id number] Hannah subq tissue 20 sq cm/< Add On Codes: 98846 Hannah subq tissue add-on (x3 additional square centimeter debrided, please refer to clinical note.) Physical Exam Const alert, oriented x3 and no apparent distress General Appearance: cooperative, comfortable and well kempt HEENT normocephalic, head/scalp atraumatic and hearing grossly normal bilaterally Eyes PERRL and EOMs intact bilaterally General Eye: normal appearance of both eyes Neck full ROM and supple General: normal visual inspection Resp normal respiratory effort and normal air movement GI non-tender and non-distended Skin Wounds: wounds noted size Size: See clinical note., bed granulating well and with undermining, margins well defined, no odor and open Neuro oriented x3, CN's II-XII intact bilaterally, moves all extremities and no focal motor deficits Psych mental status grossly normal, thought process normal and cooperative Debridement Note Debridement Note Wound debrided: Abdominal wound (superior) Type of Debridement: Excisional debridement Anesthesia Used: 4% Lidocaine Solution Depth: Down to and including healthy tissue and in the subcutaneous layer Percentage of wound debrided: 100 Instrument Used: 7mm curette Tissue Removed: Slough and devitalized tissue Severity: Fat Layer Exposed Amount of bleeding with debridement: Mild Bleeding Controlled with: Pressure Patient tolerated procedure: Patient tolerated procedure well Post-Debridement Measurements and Additional Note: Post-Debridement Measurements/Treatment WC - Nurse 1 - General Ulcer Assessment Start: 09/26/23 09:07 Freq: Status: Active Protocol: JUSTIN Activity Type Activity Date Activity User E-sign Co-sign Detail Recorded Client Recorded Date Recorded By Document 09/26/23 09:07 JF 000 09/26/23 09:18 JF Document 10/03/23 08:26 KW xfh 10/03/23 08:36 KW 09/26/23 10/03/23 09:07 08:26 - Today's Visit Information Type of service Initial Visit Follow-up Visit (Physician/[employer] ) Arrival Mode Ambulatory Ambulatory Accompanied by Patient Identification Verified (Name & Yes Yes ) Patient Requires Transmission-Based No Precautions Finger Stick Blood Sugar(mg/dl) (if 120 indicated): Blood Sugar Stated by Patient Height and Weight Height 5 ft 9 in Weight 250 lb Weight in Pounds 250.0 lbs Weight Measurement Method Estimated by Patient Body Mass Index (BMI) 36.9 36.9 BMI Classification Obese Obese BSA - Taya 2.27 Vital Signs Temperature (97.8 F-99.1 F) 97.8 F 96.7 F L Temperature Source Temporal Temporal Pulse Rate (60-100) 104 H 90 Pulse Location Monitor Monitor Respiratory Rate (12-18) 16 18 Respiratory rate source Observation Observation Oxygen Delivery Method Room Air Blood Pressure (90/60-120/80) 152/89 H 146/79 H Blood Pressure Mean (mm Hg) 110 101 Source Monitor Monitor Position Sitting Sitting Blood Pressure Location Left Arm Left Arm History Since Last Visit- (Skip if this is Patient's initial visit) Have you changed medications since your No last visit? Any new allergies or adverse reactions No Had a fall/change in ADL's that may No increase risk of falls Signs or symptoms of abuse and/or No neglect since last visit Have you been in the hospital since your No last visit? Has dressing in place as prescribed Yes Has compression in place as prescribed N/A Has offloadiing in place as prescribed N/A Experienced any changes in pain level or No management Left Footwear Regular Shoe Regular Shoe Right Footwear Regular Shoe Regular Shoe Pain Scale: 0-10 Numeric Is Patient Pain Free? Yes Yes WC - Nurse 1 - General Ulcer Measurement Start: 09/26/23 09:07 Freq: Status: Active Protocol: Activity Type Activity Date Activity User E-sign Co-sign Detail Recorded Client Recorded Date Recorded By Document 09/26/23 09:07 JF 000 09/26/23 09:18 JF Document 10/03/23 08:26 KW xfh 10/03/23 08:36 KW 09/26/23 10/03/23 09:07 08:26 Wound Center Nurse 1 4-ABDOMEN INFERIOR -Combined with other wound No -Current Size (cm) - Length 6.6 6.7 -Current Size (cm) - Width 3.7 3.7 -Current Size (cm) - Depth 1.7 0.6 -Total Square Cm 24.42 24.79 -Date of Last Picture (Recall this 10/03/23 field) -Photo Taken Yes -Epithelialization Small 1-33% -Tunneling No -Undermining/Tunneling Yes Yes -Undermining/Tunneling Starts (O'clock 2 2 ) -Undermining/Tunneling Ends (O'clock) 3 3 -Maximum Distance (cm) 2.7 1.5 -Circular Undermining No -Exudate Amt Medium Medium -Exudate Type Serosanguineous Serosanguineous -Wound Margin Flat & Intact Distinct, Outline Attached -Granulation Amt Large (67-100%) Large (67-100%) -Granulation Quality Red Red -Slough/Fibrin Yes -Necrosis Amt Small (1-33%) Small (1-33%) -Necrotic Tissue Type Adherent Slough Adherent Slough -Structure Exposed N/A -Texture (Matilde-wound Skin Appearance) Assessed, Assessed Localized Edema -Moisture (Matilde-wound Skin Appearance) Assessed,Dry/ Assessed Scaly -Color (Matilde-wound Skin Appearance) Assessed Assessed, Erythema -Temperature (Matilde-wound Skin No Abnormality No Abnormality Appearance) (Pt Warm) (Pt Warm) -Tenderness on Palpation (Matilde-wound No No Skin Appearance) -Ulcer Cleansing Wound Cleanser Soap and Water -Foul Odor after Cleansing No No -Anesthetic Used 5% Lidocaine 4% Lidocaine Gel Solution -Wound Comment(s) 2-3 sutures visible 3-ABDOMEN SUPERIOR -Combined with other wound No -Current Size (cm) - Length 6.9 7.4 -Current Size (cm) - Width 4.4 5 -Current Size (cm) - Depth 1.2 1.5 -Total Square Cm 30.36 37.0 -Date of Last Picture (Recall this 10/03/23 field) -Photo Taken Yes -Epithelialization Small 1-33% -Tunneling No -Undermining/Tunneling Yes Yes -Undermining/Tunneling Starts (O'clock 3 3 ) -Undermining/Tunneling Ends (O'clock) 5 5 -Maximum Distance (cm) 1.8 1 -Circular Undermining No -Classification - Thickness Full Thickness without Exposed Support Structure -Exudate Amt Medium Medium -Exudate Type Serosanguineous Serosanguineous -Wound Margin Flat & Intact Distinct, Outline Attached -Granulation Amt Large (67-100%) -Granulation Quality Red Pale,Red -Slough/Fibrin Yes -Necrosis Amt Small (1-33%) -Necrotic Tissue Type Adherent Slough -Structure Exposed N/A -Texture (Matilde-wound Skin Appearance) Assessed Assessed -Moisture (Matilde-wound Skin Appearance) Assessed,Dry/ Assessed Scaly -Color (Matilde-wound Skin Appearance) Assessed Assessed, Erythema -Temperature (Matilde-wound Skin No Abnormality No Abnormality Appearance) (Pt Warm) (Pt Warm) -Tenderness on Palpation (Matilde-wound No No Skin Appearance) -Ulcer Cleansing Wound Cleanser Soap and Water -Foul Odor after Cleansing No No -Anesthetic Used 5% Lidocaine 4% Lidocaine Gel Solution -Wound Comment(s) 6 sutures visible Lower Limb Edema Present NA - Nurse 2 - General Ulcer CM Notes Start: 09/26/23 09:07 Freq: Status: Active Protocol: Activity Type Activity Date Activity User E-sign Co-sign Detail Recorded Client Recorded Date Recorded By Document 09/26/23 09:34 CP 09/26/23 09:45 CP Edit Result 09/26/23 09:34 CP (1) [id number] 09/26/23 11:59 CP Document 10/03/23 08:39 GM wc 10/03/23 08:53 GM (1) 4-ABDOMEN INFERIOR - Debridement, SubQ, ea addt'l 20sq cm 1 => 2 or part thereof 3-ABDOMEN SUPERIOR - Debridement - Subq, 1st 20sq cm Yes => No - Debridement, SubQ, ea addt'l 20sq cm 1 => or part thereof 09/26/23 10/03/23 09:34 08:39 Wound Center Nurse 2 4-ABDOMEN INFERIOR -Time 09:35 08:51 -Correct Patient Yes Yes -Correct Side, Site, Position Yes Yes -Correct Procedure Yes Yes -Procedure Performed Yes Yes -Type of Procedure Debridement Debridement -Clinical Debridement Subcutaneous Subcutaneous -Tissue Removed Subcutaneous Subcutaneous -Post Debridement (cm) - Length 7 6.9 -Post Debridement (cm) - Width 3.8 4.0 -Post Debridement (cm) - Depth 1.6 1.8 -Total Square (Post) (cm) 26.6 27.60 -Area of Debridement (cm) - Length 7 6.9 -Area of Debridement (cm) - Width 3.8 4.0 -Total Square (Area) (cm) 26.6 27.60 -Tunneling No -Undermining/Tunneling Yes No -Undermining/Tunneling Starts (O'clock 12 ) -Undermining/Tunneling Ends (O'clock) 2 -Maximum Distance (cm) 3 -Circular Undermining No -Wound/Ulcer Outcome Not Healed Not Healed -Ulcer Cleansing Rinsed/ Rinsed/ Irrigated with Irrigated with Saline Saline -Foul Odor after Cleansing No No -Bioengineered Tissue No -Bleeding Controlled with Pressure Pressure -Treatment Response Procedure Procedure Tolerated Well Tolerated Well -Debridement - Subq, 1st 20sq cm Yes Yes -Debridement, SubQ, ea addt'l 20sq cm 2 or part thereof 3-ABDOMEN SUPERIOR -Time 09:37 08:52 -Correct Patient Yes Yes -Correct Side, Site, Position Yes Yes -Correct Procedure Yes Yes -Procedure Performed Yes Yes -Type of Procedure Debridement Debridement -Clinical Debridement Subcutaneous Subcutaneous -Tissue Removed Subcutaneous Subcutaneous -Post Debridement (cm) - Length 7 7.2 -Post Debridement (cm) - Width 4.3 5.0 -Post Debridement (cm) - Depth 2.2 2.2 -Total Square (Post) (cm) 30.1 36.00 -Area of Debridement (cm) - Length 7 7.2 -Area of Debridement (cm) - Width 4.3 5.0 -Total Square (Area) (cm) 30.1 36.00 -Tunneling No -Undermining/Tunneling Yes No -Undermining/Tunneling Starts (O'clock 3 ) -Undermining/Tunneling Ends (O'clock) 5 -Maximum Distance (cm) 2 -Circular Undermining No -Wound/Ulcer Outcome Not Healed Not Healed -Ulcer Cleansing Rinsed/ Rinsed/ Irrigated with Irrigated with Saline Saline -Foul Odor after Cleansing No No -Bioengineered Tissue No -Bleeding Controlled with Pressure Pressure -Treatment Response Procedure Procedure Tolerated Well Tolerated Well -Debridement - Subq, 1st 20sq cm No Yes -Debridement, SubQ, ea addt'l 20sq cm 3 or part thereof Pain Scale: 0-10 Numeric Is Patient Pain Free? Yes Yes - Nurse 3 - General Ulcer D/C NN Start: 09/26/23 09:07 Freq: Status: Active Protocol: Activity Type Activity Date Activity User E-sign Co-sign Detail Recorded Client Recorded Date Recorded By Document 09/26/23 10:01 000 09/26/23 10:02 Document 10/03/23 09:00 RB wound 10/03/23 09:01 RB 09/26/23 10/03/23 10:01 09:00 Wound Care Center Nurse 3 4-ABDOMEN INFERIOR -Ulcer Cleansing Rinsed/ Irrigated with Saline -Foul Odor after Cleansing No -Negative Pressure Wound Therapy Continue -Setting (mmHg) 150 -Negative Pressure is Continuous -Other Dressing dakins moistened gauze -Primary Dressing Covered/Secured with Secured with Tape -Other Covering ABD -NPWT Application Charge NPWT > 50 sq cm ($) 3-ABDOMEN SUPERIOR -Ulcer Cleansing Rinsed/ Irrigated with Saline -Foul Odor after Cleansing No -Negative Pressure Wound Therapy Continue -Setting (mmHg) 150 -Negative Pressure is Continuous -Other Dressing dakins moistened gauze / ABD -Primary Dressing Covered/Secured with Secured with Tape -NPWT Application Charge NPWT - Multiple Locations Treatment Response Procedure Tolerated Well Pain Scale: 0-10 Numeric Is Patient Pain Free? Yes Yes - Visit Discharge Discharge Condition Stable Stable Ambulatory Status Ambulatory Ambulatory Transportation Private Auto Private Auto Accompanied by Medication Reconcilliation completed & Yes No provided to patient/care provider Clinical Summary of Care Provided Yes Yes Additional Wound Wound debrided: Abdominal wound (inferior) Type of Debridement: Excisional debridement Anesthesia Used: 4% Lidocaine Solution Depth: Down to and including healthy tissue and in the subcutaneous layer Percentage of wound debrided: 100 Instrument Used: 7mm curette Tissue Removed: Slough and devitalized tissue Severity: Fat Layer Exposed Amount of bleeding with debridement: Mild Bleeding Controlled with: Pressure Patient tolerated procedure: Patient tolerated procedure well Assessment/Plan Assessment/Plan (1) Non-healing surgical wound: CODE(S): T81.89XA - Other complications of procedures, not elsewhere classified, initial encounter QUALIFIERS: Encounter type: initial encounter Qualified Code(s): T81.89XA - Other complications of procedures, not elsewhere classified, initial encounter (2) Type 2 diabetes mellitus: CODE(S): E11.9 - Type 2 diabetes mellitus without complications (3) History of colostomy reversal: CODE(S): Z98.890 - Other specified postprocedural states PLAN: Plan Debridement done as documented above, procedure was well-tolerated. Inferior wound with more slough compared to superior, cultures taken. Periwound irritation has improved, resume wound VAC at 150 mmHg, change every other day. Unable to apply wound VAC here today, will be done by home health on Saturday however in the meantime, continue Dakin's dressing daily to twice daily. Denies significant drainage. Continue optimal diabetes control and dietary protein intake. Continue other chronic wound care management. His questions were answered and he was advised to let us know if he has any further questions or concerns. Follow-up in 2 weeks. This note was generated with [employer] dictation software. It may contain incorrect words, spelling, and punctuation that were not noted in checking the note before signing.
[2023-10-17 08:28] VITALS: BP 162/88; PULSE 88; RESP 18; TEMP 35.9; BMI 36.9
--- NOTE | 2023-10-17 08:51 | PCM.WC.PN ---
History of Present Illness Date of Service: 10/17/23 Chief Complaint: Non healing surgical wound History of Wound: Mr. Duque is a 62 yo well-known to me. Last seen here over a month ago. He had been discharged due to plan for closure following colostomy reversal. Surgery was uneventful however, less than a week after surgery, he states that his wound breakdown/dehisced. Initially applied Dakin's dressing but subsequently, started a wound VAC. Since starting wound VAC, he states that there has been much better improvement. Currently set at 150 mmHg. History of diabetes mellitus which is well-controlled. He reports good protein intake. He feels well and denies any acute concerns at this time. Progress of Wound: No new concerns at this time. Has tolerated the VAC without any concerns since his last visit. Improving. Objective Data Objective Data Vital Signs: Vital Signs Temp Pulse Resp BP O2 Del Method 96.6 F L 88 18 162/88 H Room Air 10/17/23 08:28 10/17/23 08:28 10/17/23 08:28 10/17/23 08:28 10/17/23 08:28 Oxygen Delivery Method Room Air Weight: 250 lb Body Mass Index (BMI) 36.9 Lab / Micro Data Micro: Microbiology 10/03/23 08:45 Wound - Abdominal Gram Stain - Final 10/03/23 08:45 Wound - Abdominal Wound Culture - Final Staphylococcus aureus 10/03/23 08:45 Wound - Abdominal Anaerobic Culture - Final No anaerobic bacteria isolated. Charges/Coding Procedures Integumentary 111xxx-113xx: [id number] Hannah subq tissue 20 sq cm/< Add On Codes: 13261 Hannah subq tissue add-on (x2. Additional square centimeter debrided, please refer to clinical note) Physical Exam Const alert, oriented x3 and no apparent distress General Appearance: cooperative, comfortable and well kempt HEENT normocephalic, head/scalp atraumatic and hearing grossly normal bilaterally Eyes EOMs intact bilaterally General Eye: normal appearance of both eyes Neck full ROM and supple General: normal visual inspection Resp normal respiratory effort and normal air movement GI non-tender and non-distended Skin Wounds: wounds noted size Size: See clinical note., bed granulating well and with undermining, margins well defined, no odor and open Neuro oriented x3, CN's II-XII intact bilaterally, moves all extremities and no focal motor deficits Psych mental status grossly normal, thought process normal and cooperative Debridement Note Debridement Note Wound debrided: Abdominal (superior) Type of Debridement: Excisional debridement Anesthesia Used: 4% Lidocaine Solution Depth: Down to and including healthy tissue and in the subcutaneous layer Percentage of wound debrided: 100 Instrument Used: 7mm curette Tissue Removed: Slough and devitalized tissue Severity: Fat Layer Exposed Amount of bleeding with debridement: Mild Bleeding Controlled with: Pressure Patient tolerated procedure: Patient tolerated procedure well Post-Debridement Measurements and Additional Note: Post-Debridement Measurements/Treatment - Nurse 1 - General Ulcer Assessment Start: 09/26/23 09:07 Freq: Status: Active Protocol: JUSTIN Activity Type Activity Date Activity User E-sign Co-sign Detail Recorded Client Recorded Date Recorded By Document 09/26/23 09:07 JF 000 09/26/23 09:18 JF Document 10/03/23 08:26 KW xfh 10/03/23 08:36 KW Document 10/17/23 08:28 KW [id number] 10/17/23 08:38 KW 09/26/23 10/03/23 10/17/23 09:07 08:26 08:28 - Today's Visit Information Type of service Initial Visit Follow-up Visit Follow-up Visit (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 (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 ) ) Arrival Mode Ambulatory Ambulatory Ambulatory Accompanied by Patient Identification Verified (Name & Yes Yes Yes ) Patient Requires Transmission-Based No Precautions Finger Stick Blood Sugar(mg/dl) (if 120 indicated): Blood Sugar Stated by Patient Height and Weight Height 5 ft 9 in Weight 250 lb Weight in Pounds 250.0 lbs Weight Measurement Method Estimated by Patient Body Mass Index (BMI) 36.9 36.9 36.9 BMI Classification Obese Obese Obese BSA - Taya 2.27 Vital Signs Temperature (97.8 F-99.1 F) 97.8 F 96.7 F L 96.6 F L Temperature Source Temporal Temporal Temporal Pulse Rate (60-100) 104 H 90 88 Pulse Location Monitor Monitor Monitor Respiratory Rate (12-18) 16 18 18 Respiratory rate source Observation Observation Observation Oxygen Delivery Method Room Air Room Air Blood Pressure (90/60-120/80) 152/89 H 146/79 H 162/88 H Blood Pressure Mean (mm Hg) 110 101 112 Source Monitor Monitor Monitor Position Sitting Sitting Semi-Fowlers Blood Pressure Location Left Arm Left Arm Left Arm History Since Last Visit- (Skip if this is Patient's initial visit) Have you changed medications since your No No last visit? Any new allergies or adverse reactions No No Had a fall/change in ADL's that may No No increase risk of falls Signs or symptoms of abuse and/or No No neglect since last visit Have you been in the hospital since your No No last visit? Has dressing in place as prescribed Yes Yes Has compression in place as prescribed N/A N/A Has offloadiing in place as prescribed N/A N/A Experienced any changes in pain level or No No management Left Footwear Regular Shoe Regular Shoe Regular Shoe Right Footwear Regular Shoe Regular Shoe Regular Shoe Pain Scale: 0-10 Numeric Is Patient Pain Free? Yes Yes Yes WC - Nurse 1 - General Ulcer Measurement Start: 09/26/23 09:07 Freq: Status: Active Protocol: Activity Type Activity Date Activity User E-sign Co-sign Detail Recorded Client Recorded Date Recorded By Document 09/26/23 09:07 JF 000 09/26/23 09:18 JF Document 10/03/23 08:26 KW xfh 10/03/23 08:36 KW Document 10/17/23 08:28 KW [id number] 10/17/23 08:38 KW 09/26/23 10/03/23 10/17/23 09:07 08:26 08:28 Wound Center Nurse 1 4-ABDOMEN INFERIOR -Combined with other wound No -Current Size (cm) - Length 6.6 6.7 6.4 -Current Size (cm) - Width 3.7 3.7 3.4 -Current Size (cm) - Depth 1.7 0.6 1.3 -Total Square Cm 24.42 24.79 21.76 -Date of Last Picture (Recall this 10/03/23 10/17/23 field) -Photo Taken Yes -Epithelialization Small 1-33% -Tunneling No -Undermining/Tunneling Yes Yes Yes -Undermining/Tunneling Starts (O'clock 2 2 1 ) -Undermining/Tunneling Ends (O'clock) 3 3 3 -Maximum Distance (cm) 2.7 1.5 1.8 -Circular Undermining No -Exudate Amt Medium Medium Medium -Exudate Type Serosanguineous Serosanguineous Serosanguineous -Wound Margin Flat & Intact Distinct, Distinct, Outline Outline Attached Attached -Granulation Amt Large (67-100%) Large (67-100%) Large (67-100%) -Granulation Quality Red Red [place],Red -Slough/Fibrin Yes -Necrosis Amt Small (1-33%) Small (1-33%) -Necrotic Tissue Type Adherent Slough Adherent Slough -Structure Exposed N/A -Texture (Matilde-wound Skin Appearance) Assessed, Assessed Assessed, Localized Edema Scarring -Moisture (Matilde-wound Skin Appearance) Assessed,Dry/ Assessed Assessed Scaly -Color (Matilde-wound Skin Appearance) Assessed Assessed, Assessed Erythema -Temperature (Matilde-wound Skin No Abnormality No Abnormality No Abnormality Appearance) (Pt Warm) (Pt Warm) (Pt Warm) -Tenderness on Palpation (Matilde-wound No No No Skin Appearance) -Ulcer Cleansing Wound Cleanser Soap and Water Soap and Water -Foul Odor after Cleansing No No No -Anesthetic Used 5% Lidocaine 4% Lidocaine 4% Lidocaine Gel Solution Solution -Wound Comment(s) 2-3 sutures visible 3-ABDOMEN SUPERIOR -Combined with other wound No -Current Size (cm) - Length 6.9 7.4 6 -Current Size (cm) - Width 4.4 5 4.1 -Current Size (cm) - Depth 1.2 1.5 1.2 -Total Square Cm 30.36 37.0 24.6 -Date of Last Picture (Recall this 10/03/23 10/17/23 field) -Photo Taken Yes -Epithelialization Small 1-33% -Tunneling No -Undermining/Tunneling Yes Yes Yes -Undermining/Tunneling Starts (O'clock 3 3 4 ) -Undermining/Tunneling Ends (O'clock) 5 5 5 -Maximum Distance (cm) 1.8 1 1.8 -Circular Undermining No -Classification - Thickness Full Thickness without Exposed Support Structure -Exudate Amt Medium Medium Medium -Exudate Type Serosanguineous Serosanguineous Serosanguineous -Wound Margin Flat & Intact Distinct, Distinct, Outline Outline Attached Attached -Granulation Amt Large (67-100%) Large (67-100%) -Granulation Quality Red Pale,Red [place],Red -Slough/Fibrin Yes -Necrosis Amt Small (1-33%) -Necrotic Tissue Type Adherent Slough -Structure Exposed N/A -Texture (Matilde-wound Skin Appearance) Assessed Assessed Assessed, Scarring -Moisture (Matilde-wound Skin Appearance) Assessed,Dry/ Assessed Assessed Scaly -Color (Matilde-wound Skin Appearance) Assessed Assessed, Assessed Erythema -Temperature (Matilde-wound Skin No Abnormality No Abnormality No Abnormality Appearance) (Pt Warm) (Pt Warm) (Pt Warm) -Tenderness on Palpation (Matilde-wound No No No Skin Appearance) -Ulcer Cleansing Wound Cleanser Soap and Water Soap and Water -Foul Odor after Cleansing No No No -Anesthetic Used 5% Lidocaine 4% Lidocaine 4% Lidocaine Gel Solution Solution -Wound Comment(s) 6 sutures visible Lower Limb Edema Present NA WC - Nurse 2 - General Ulcer CM Notes Start: 09/26/23 09:07 Freq: Status: Active Protocol: Activity Type Activity Date Activity User E-sign Co-sign Detail Recorded Client Recorded Date Recorded By Document 09/26/23 09:34 CP 09/26/23 09:45 CP Edit Result 09/26/23 09:34 CP (1) [id number] 09/26/23 11:59 CP Document 10/03/23 08:39 GM 10/03/23 08:53 GM Edit Result 10/03/23 08:39 GM (2) [id number] 10/09/23 07:33 GM Document 10/17/23 08:41 GM [id number] 10/17/23 08:49 GM (1) 4-ABDOMEN INFERIOR - Debridement, SubQ, ea addt'l 20sq cm 1 => 2 or part thereof 3-ABDOMEN SUPERIOR - Debridement - Subq, 1st 20sq cm Yes => No - Debridement, SubQ, ea addt'l 20sq cm 1 => or part thereof (2) 4-ABDOMEN INFERIOR - Debridement - Subq, 1st 20sq cm Yes => No 09/26/23 10/03/23 10/17/23 09:34 08:39 08:41 Wound Center Nurse 2 4-ABDOMEN INFERIOR -Time 09:35 08:51 08:41 -Correct Patient Yes Yes Yes -Correct Side, Site, Position Yes Yes Yes -Correct Procedure Yes Yes Yes -Procedure Performed Yes Yes Yes -Type of Procedure Debridement Debridement Debridement -Clinical Debridement Subcutaneous Subcutaneous Subcutaneous -Tissue Removed Subcutaneous Subcutaneous Subcutaneous -Post Debridement (cm) - Length 7 6.9 6.3 -Post Debridement (cm) - Width 3.8 4.0 3.4 -Post Debridement (cm) - Depth 1.6 1.8 1.7 -Total Square (Post) (cm) 26.6 27.60 21.42 -Area of Debridement (cm) - Length 7 6.9 6.3 -Area of Debridement (cm) - Width 3.8 4.0 3.4 -Total Square (Area) (cm) 26.6 27.60 21.42 -Tunneling No Yes -Tunneling Position (O'clock) 2 -Tunneling Distance (cm) 1.7 -Undermining/Tunneling Yes No No -Undermining/Tunneling Starts (O'clock 12 ) -Undermining/Tunneling Ends (O'clock) 2 -Maximum Distance (cm) 3 -Circular Undermining No No -Wound/Ulcer Outcome Not Healed Not Healed Not Healed -Ulcer Cleansing Rinsed/ Rinsed/ Rinsed/ Irrigated with Irrigated with Irrigated with Saline Saline Saline -Foul Odor after Cleansing No No No -Bioengineered Tissue No No -Bleeding Controlled with Pressure Pressure Pressure -Treatment Response Procedure Procedure Procedure Tolerated Well Tolerated Well Tolerated Well -Debridement - Subq, 1st 20sq cm Yes No Yes -Debridement, SubQ, ea addt'l 20sq cm 2 2 or part thereof 3-ABDOMEN SUPERIOR -Time 09:37 08:52 08:41 -Correct Patient Yes Yes Yes -Correct Side, Site, Position Yes Yes Yes -Correct Procedure Yes Yes Yes -Procedure Performed Yes Yes Yes -Type of Procedure Debridement Debridement Debridement -Clinical Debridement Subcutaneous Subcutaneous Subcutaneous -Tissue Removed Subcutaneous Subcutaneous Subcutaneous -Post Debridement (cm) - Length 7 7.2 6.0 -Post Debridement (cm) - Width 4.3 5.0 4.3 -Post Debridement (cm) - Depth 2.2 2.2 1.7 -Total Square (Post) (cm) 30.1 36.00 25.80 -Area of Debridement (cm) - Length 7 7.2 6.0 -Area of Debridement (cm) - Width 4.3 5.0 4.3 -Total Square (Area) (cm) 30.1 36.00 25.80 -Tunneling No Yes -Tunneling Position (O'clock) 4 -Tunneling Distance (cm) 1.6 -Undermining/Tunneling Yes No No -Undermining/Tunneling Starts (O'clock 3 ) -Undermining/Tunneling Ends (O'clock) 5 -Maximum Distance (cm) 2 -Circular Undermining No No -Wound/Ulcer Outcome Not Healed Not Healed Not Healed -Ulcer Cleansing Rinsed/ Rinsed/ Rinsed/ Irrigated with Irrigated with Irrigated with Saline Saline Saline -Foul Odor after Cleansing No No No -Bioengineered Tissue No No -Bleeding Controlled with Pressure Pressure Pressure -Treatment Response Procedure Procedure Procedure Tolerated Well Tolerated Well Tolerated Well -Debridement - Subq, 1st 20sq cm No Yes Yes -Debridement, SubQ, ea addt'l 20sq cm 3 or part thereof Pain Scale: 0-10 Numeric Is Patient Pain Free? Yes Yes Yes - Nurse 3 - General Ulcer D/C NN Start: 09/26/23 09:07 Freq: Status: Active Protocol: Activity Type Activity Date Activity User E-sign Co-sign Detail Recorded Client Recorded Date Recorded By Document 09/26/23 10:01 JF 000 09/26/23 10:02 JF Document 10/03/23 09:00 RB wound 10/03/23 09:01 RB 09/26/23 10/03/23 10:01 09:00 Wound Care Center Nurse 3 4-ABDOMEN INFERIOR -Ulcer Cleansing Rinsed/ Irrigated with Saline -Foul Odor after Cleansing No -Negative Pressure Wound Therapy Continue -Setting (mmHg) 150 -Negative Pressure is Continuous -Other Dressing dakins moistened gauze -Primary Dressing Covered/Secured with Secured with Tape -Other Covering ABD -NPWT Application Charge NPWT > 50 sq cm ($) 3-ABDOMEN SUPERIOR -Ulcer Cleansing Rinsed/ Irrigated with Saline -Foul Odor after Cleansing No -Negative Pressure Wound Therapy Continue -Setting (mmHg) 150 -Negative Pressure is Continuous -Other Dressing dakins moistened gauze / ABD -Primary Dressing Covered/Secured with Secured with Tape -NPWT Application Charge NPWT - Multiple Locations Treatment Response Procedure Tolerated Well Pain Scale: 0-10 Numeric Is Patient Pain Free? Yes Yes - Visit Discharge Discharge Condition Stable Stable Ambulatory Status Ambulatory Ambulatory Transportation Private Auto Private Auto Accompanied by Medication Reconcilliation completed & Yes No provided to patient/care provider Clinical Summary of Care Provided Yes Yes Additional Wound Wound debrided: Abdominal wound (inferior) Type of Debridement: Excisional debridement Anesthesia Used: 4% Lidocaine Solution Depth: Down to and including healthy tissue and in the subcutaneous layer Percentage of wound debrided: 100 Instrument Used: 7mm curette Tissue Removed: Slough and devitalized tissue Severity: Fat Layer Exposed Amount of bleeding with debridement: Mild Bleeding Controlled with: Pressure Patient tolerated procedure: Patient tolerated procedure well Assessment/Plan Assessment/Plan (1) Non-healing surgical wound: CODE(S): T81.89XA - Other complications of procedures, not elsewhere classified, initial encounter QUALIFIERS: Encounter type: initial encounter Qualified Code(s): T81.89XA - Other complications of procedures, not elsewhere classified, initial encounter (2) Type 2 diabetes mellitus: CODE(S): E11.9 - Type 2 diabetes mellitus without complications (3) History of colostomy reversal: CODE(S): Z98.890 - Other specified postprocedural states PLAN: Plan Debridement done as documented above, procedure was well-tolerated. No acute concerns at this time. Both wounds improving however, superior wound with better improvement than inferior. Undermining improving as well. Cultures from last visit reviewed, very rare growth of Staph aureus (no cells or organisms noted). Since both are improving, will hold off systemic antibiotics at this time. Continue wound VAC at 150 mmHg, change every other day. Continue optimal diabetes control and dietary protein intake. Continue other chronic wound care management. His questions were answered and he was advised to let us know if he has any further questions or concerns. Follow-up in 1 week. This note was generated with [employer] dictation software. It may contain incorrect words, spelling, and punctuation that were not noted in checking the note before signing.
--- NOTE | 2023-10-17 09:41 | WC ---
PHOTO 10/03/23 ABD
--- NOTE | 2023-10-17 09:45 | WC ---
PHOTO 10/03/23 ABNER COLEMAN
--- NOTE | 2023-10-17 14:01 | WC ---
PHOTO 10/17/23 ABD
[2023-10-24 08:49] VITALS: BP 143/76; PULSE 84; RESP 16; TEMP 36.6; BMI 36.9
--- NOTE | 2023-10-24 11:45 | PCM.WC.PN ---
History of Present Illness Date of Service: 10/24/23 Chief Complaint: Non healing surgical wound History of Wound: Mr. Duque is a 62 yo well-known to me. Last seen here over a month ago. He had been discharged due to plan for closure following colostomy reversal. Surgery was uneventful however, less than a week after surgery, he states that his wound breakdown/dehisced. Initially applied Dakin's dressing but subsequently, started a wound VAC. Since starting wound VAC, he states that there has been much better improvement. Currently set at 150 mmHg. History of diabetes mellitus which is well-controlled. He reports good protein intake. He feels well and denies any acute concerns at this time. Progress of Wound: He states that he has tolerated the wound VAC well without any concerns. No new concerns initially reported however, noted on examination and debridement an area below the inferior wound with purulent drainage. His states that it was noted a few days ago and appeared to be a blister/pocket. He states that he feels well. No chills or fever. Blood glucose readings have also been stable per patient with his fasting this morning at 130. Objective Data Objective Data Vital Signs: Vital Signs Temp Pulse Resp BP O2 Del Method 97.8 F 84 16 143/76 H Room Air 10/24/23 08:49 10/24/23 08:49 10/24/23 08:49 10/24/23 08:49 10/24/23 08:49 Oxygen Delivery Method Room Air Weight: 250 lb Body Mass Index (BMI) 36.9 Lab / Micro Data Micro: Microbiology 10/03/23 08:45 Wound - Abdominal Gram Stain - Final 10/03/23 08:45 Wound - Abdominal Wound Culture - Final Staphylococcus aureus 10/03/23 08:45 Wound - Abdominal Anaerobic Culture - Final No anaerobic bacteria isolated. Charges/Coding Procedures Integumentary [id number]: [id number] Hannah subq tissue 20 sq cm/< Add On Codes: 01038 Hannah subq tissue add-on (Additional square centimeter debrided, please refer to clinical note) Physical Exam Const alert, oriented x3 and no apparent distress General Appearance: cooperative, comfortable and well kempt HEENT normocephalic, head/scalp atraumatic and hearing grossly normal bilaterally Eyes EOMs intact bilaterally General Eye: normal appearance of both eyes Neck full ROM and supple General: normal visual inspection Resp normal respiratory effort and normal air movement GI non-tender and non-distended Skin Wounds: wounds noted size Size: See clinical note., bed granulating well and with undermining, drainage other Purulent drainage noted from new area beneath the inferior wound. , margins well defined, no odor and open Neuro oriented x3, CN's II-XII intact bilaterally, moves all extremities and no focal motor deficits Psych mental status grossly normal, thought process normal and cooperative Debridement Note Debridement Note Wound debrided: Abdomen (superior) Type of Debridement: Excisional debridement Anesthesia Used: 4% Lidocaine Solution Depth: Down to and including healthy tissue and in the subcutaneous layer Percentage of wound debrided: 100 Instrument Used: 5mm curette Tissue Removed: Slough and devitalized tissue Severity: Fat Layer Exposed Amount of bleeding with debridement: Mild Bleeding Controlled with: Pressure Patient tolerated procedure: Patient tolerated procedure well Post-Debridement Measurements and Additional Note: Post-Debridement Measurements/Treatment - Nurse 1 - General Ulcer Assessment Start: 09/26/23 09:07 Freq: Status: Active Protocol: JUSTIN Activity Type Activity Date Activity User E-sign Co-sign Detail Recorded Client Recorded Date Recorded By Document 09/26/23 09:07 JF 000 09/26/23 09:18 JF Document 10/03/23 08:26 KW xfh 10/03/23 08:36 KW Document 10/17/23 08:28 KW [id number] 10/17/23 08:38 KW Document 10/24/23 08:49 KW [id number] 10/24/23 09:04 KW 09/26/23 10/03/23 10/17/23 09:07 08:26 08:28 - Today's Visit Information Type of service Initial Visit Follow-up Visit Follow-up Visit (Physician/INVISIBLE BRACES ORTHODONTIST (Physician/INVISIBLE BRACES ORTHODONTIST ) ) Arrival Mode Ambulatory Ambulatory Ambulatory Accompanied by Patient Identification Verified (Name & Yes Yes Yes ) Patient Requires Transmission-Based No Precautions Finger Stick Blood Sugar(mg/dl) (if 120 indicated): Blood Sugar Stated by Patient Height and Weight Height 5 ft 9 in Weight 250 lb Weight in Pounds 250.0 lbs Weight Measurement Method Estimated by Patient Body Mass Index (BMI) 36.9 36.9 36.9 BMI Classification Obese Obese Obese BSA - Taya 2.27 Vital Signs Temperature (97.8 F-99.1 F) 97.8 F 96.7 F L 96.6 F L Temperature Source Temporal Temporal Temporal Pulse Rate (60-100) 104 H 90 88 Pulse Location Monitor Monitor Monitor Respiratory Rate (12-18) 16 18 18 Respiratory rate source Observation Observation Observation Oxygen Delivery Method Room Air Room Air Blood Pressure (90/60-120/80) 152/89 H 146/79 H 162/88 H Blood Pressure Mean (mm Hg) 110 101 112 Source Monitor Monitor Monitor Position Sitting Sitting Semi-Fowlers Blood Pressure Location Left Arm Left Arm Left Arm History Since Last Visit- (Skip if this is Patient's initial visit) Have you changed medications since your No No last visit? Any new allergies or adverse reactions No No Had a fall/change in ADL's that may No No increase risk of falls Signs or symptoms of abuse and/or No No neglect since last visit Have you been in the hospital since your No No last visit? Has dressing in place as prescribed Yes Yes Has compression in place as prescribed N/A N/A Has offloadiing in place as prescribed N/A N/A Experienced any changes in pain level or No No management Left Footwear Regular Shoe Regular Shoe Regular Shoe Right Footwear Regular Shoe Regular Shoe Regular Shoe Pain Scale: 0-10 Numeric Is Patient Pain Free? Yes Yes Yes 10/24/23 08:49 WC - Today's Visit Information Type of service Follow-up Visit (Physician/INVISIBLE BRACES ORTHODONTIST ) Arrival Mode Ambulatory Accompanied by Patient Identification Verified (Name & Yes ) Patient Requires Transmission-Based Precautions Finger Stick Blood Sugar(mg/dl) (if indicated): Blood Sugar Height and Weight Height Weight Weight in Pounds Weight Measurement Method Body Mass Index (BMI) 36.9 BMI Classification Obese [facility] Vital Signs Temperature (97.8 F-99.1 F) 97.8 F Temperature Source Temporal Pulse Rate (60-100) 84 Pulse Location Monitor Respiratory Rate (12-18) 16 Respiratory rate source Observation Oxygen Delivery Method Room Air Blood Pressure (90/60-120/80) 143/76 H Blood Pressure Mean (mm Hg) 98 Source Monitor Position Semi-Fowlers Blood Pressure Location Left Arm History Since Last Visit- (Skip if this is Patient's initial visit) Have you changed medications since your No last visit? Any new allergies or adverse reactions No Had a fall/change in ADL's that may No increase risk of falls Signs or symptoms of abuse and/or No neglect since last visit Have you been in the hospital since your No last visit? Has dressing in place as prescribed Yes Has compression in place as prescribed Yes Has offloadiing in place as prescribed N/A Experienced any changes in pain level or No management Left Footwear Regular Shoe Right Footwear Regular Shoe Pain Scale: 0-10 Numeric Is Patient Pain Free? Yes WC - Nurse 1 - General Ulcer Measurement Start: 09/26/23 09:07 Freq: Status: Active Protocol: Activity Type Activity Date Activity User E-sign Co-sign Detail Recorded Client Recorded Date Recorded By Document 09/26/23 09:07 JF 000 09/26/23 09:18 JF Document 10/03/23 08:26 KW xfh 10/03/23 08:36 KW Document 10/17/23 08:28 KW [id number] 10/17/23 08:38 KW Document 10/24/23 08:49 KW [id number] 10/24/23 09:04 KW 09/26/23 10/03/23 10/17/23 09:07 08:26 08:28 Wound Center Nurse 1 4-ABDOMEN INFERIOR -Combined with other wound No -Current Size (cm) - Length 6.6 6.7 6.4 -Current Size (cm) - Width 3.7 3.7 3.4 -Current Size (cm) - Depth 1.7 0.6 1.3 -Total Square Cm 24.42 24.79 21.76 -Date of Last Picture (Recall this 10/03/23 10/17/23 field) -Photo Taken Yes -Epithelialization Small 1-33% -Tunneling No -Undermining/Tunneling Yes Yes Yes -Undermining/Tunneling Starts (O'clock 2 2 1 ) -Undermining/Tunneling Ends (O'clock) 3 3 3 -Maximum Distance (cm) 2.7 1.5 1.8 -Circular Undermining No -Exudate Amt Medium Medium Medium -Exudate Type Serosanguineous Serosanguineous Serosanguineous -Wound Margin Flat & Intact Distinct, Distinct, Outline Outline Attached Attached -Granulation Amt Large (67-100%) Large (67-100%) Large (67-100%) -Granulation Quality Red Red Pinnacle,Red -Slough/Fibrin Yes -Necrosis Amt Small (1-33%) Small (1-33%) -Necrotic Tissue Type Adherent Slough Adherent Slough -Structure Exposed N/A -Texture (Matilde-wound Skin Appearance) Assessed, Assessed Assessed, Localized Edema Scarring -Moisture (Matilde-wound Skin Appearance) Assessed,Dry/ Assessed Assessed Scaly -Color (Matilde-wound Skin Appearance) Assessed Assessed, Assessed Erythema -Temperature (Matilde-wound Skin No Abnormality No Abnormality No Abnormality Appearance) (Pt Warm) (Pt Warm) (Pt Warm) -Tenderness on Palpation (Matilde-wound No No No Skin Appearance) -Ulcer Cleansing Wound Cleanser Soap and Water Soap and Water -Foul Odor after Cleansing No No No -Anesthetic Used 5% Lidocaine 4% Lidocaine 4% Lidocaine Gel Solution Solution -Wound Comment(s) 2-3 sutures visible 3-ABDOMEN SUPERIOR -Combined with other wound No -Current Size (cm) - Length 6.9 7.4 6 -Current Size (cm) - Width 4.4 5 4.1 -Current Size (cm) - Depth 1.2 1.5 1.2 -Total Square Cm 30.36 37.0 24.6 -Date of Last Picture (Recall this 10/03/23 10/17/23 field) -Photo Taken Yes -Epithelialization Small 1-33% -Tunneling No -Undermining/Tunneling Yes Yes Yes -Undermining/Tunneling Starts (O'clock 3 3 4 ) -Undermining/Tunneling Ends (O'clock) 5 5 5 -Maximum Distance (cm) 1.8 1 1.8 -Circular Undermining No -Classification - Thickness Full Thickness without Exposed Support Structure -Exudate Amt Medium Medium Medium -Exudate Type Serosanguineous Serosanguineous Serosanguineous -Wound Margin Flat & Intact Distinct, Distinct, Outline Outline Attached Attached -Granulation Amt Large (67-100%) Large (67-100%) -Granulation Quality Red Pale,Red Pinnacle,Red -Slough/Fibrin Yes -Necrosis Amt Small (1-33%) -Necrotic Tissue Type Adherent Slough -Structure Exposed N/A -Texture (Matilde-wound Skin Appearance) Assessed Assessed Assessed, Scarring -Moisture (Matilde-wound Skin Appearance) Assessed,Dry/ Assessed Assessed Scaly -Color (Matilde-wound Skin Appearance) Assessed Assessed, Assessed Erythema -Temperature (Matilde-wound Skin No Abnormality No Abnormality No Abnormality Appearance) (Pt Warm) (Pt Warm) (Pt Warm) -Tenderness on Palpation (Matilde-wound No No No Skin Appearance) -Ulcer Cleansing Wound Cleanser Soap and Water Soap and Water -Foul Odor after Cleansing No No No -Anesthetic Used 5% Lidocaine 4% Lidocaine 4% Lidocaine Gel Solution Solution -Wound Comment(s) 6 sutures visible Lower Limb Edema Present NA 10/24/23 08:49 Wound Center Nurse 1 4-ABDOMEN INFERIOR -Combined with other wound -Current Size (cm) - Length 5.8 -Current Size (cm) - Width 3.7 -Current Size (cm) - Depth 1 -Total Square Cm 21.46 -Date of Last Picture (Recall this 10/24/23 field) -Photo Taken -Epithelialization -Tunneling -Undermining/Tunneling Yes -Undermining/Tunneling Starts (O'clock 1 ) -Undermining/Tunneling Ends (O'clock) 2 -Maximum Distance (cm) 0.9 -Circular Undermining -Exudate Amt Large -Exudate Type Serosanguineous -Wound Margin Distinct, Outline Attached -Granulation Amt Large (67-100%) -Granulation Quality Red -Slough/Fibrin -Necrosis Amt -Necrotic Tissue Type -Structure Exposed -Texture (Matilde-wound Skin Appearance) Assessed -Moisture (Matilde-wound Skin Appearance) Assessed -Color (Matilde-wound Skin Appearance) Assessed -Temperature (Matilde-wound Skin No Abnormality Appearance) (Pt Warm) -Tenderness on Palpation (Matilde-wound No Skin Appearance) -Ulcer Cleansing Soap and Water -Foul Odor after Cleansing No -Anesthetic Used 4% Lidocaine Solution -Wound Comment(s) 3-ABDOMEN SUPERIOR -Combined with other wound -Current Size (cm) - Length 6 -Current Size (cm) - Width 5.8 -Current Size (cm) - Depth 0.9 -Total Square Cm 34.8 -Date of Last Picture (Recall this 10/24/23 field) -Photo Taken -Epithelialization -Tunneling -Undermining/Tunneling Yes -Undermining/Tunneling Starts (O'clock 5 ) -Undermining/Tunneling Ends (O'clock) 6 -Maximum Distance (cm) 0.3 -Circular Undermining -Classification - Thickness -Exudate Amt Large -Exudate Type Serosanguineous -Wound Margin Distinct, Outline Attached -Granulation Amt Large (67-100%) -Granulation Quality Red -Slough/Fibrin -Necrosis Amt -Necrotic Tissue Type -Structure Exposed -Texture (Matilde-wound Skin Appearance) Assessed -Moisture (Matilde-wound Skin Appearance) Assessed -Color (Matilde-wound Skin Appearance) Assessed -Temperature (Matilde-wound Skin No Abnormality Appearance) (Pt Warm) -Tenderness on Palpation (Matilde-wound No Skin Appearance) -Ulcer Cleansing Soap and Water -Foul Odor after Cleansing No -Anesthetic Used 4% Lidocaine Solution -Wound Comment(s) Lower Limb Edema Present WC - Nurse 2 - General Ulcer CM Notes Start: 09/26/23 09:07 Freq: Status: Active Protocol: Activity Type Activity Date Activity User E-sign Co-sign Detail Recorded Client Recorded Date Recorded By Document 09/26/23 09:34 CP 09/26/23 09:45 CP Edit Result 09/26/23 09:34 CP (1) [id number] 09/26/23 11:59 CP Document 10/03/23 08:39 GM 10/03/23 08:53 GM Edit Result 10/03/23 08:39 GM (2) [id number] 10/09/23 07:33 GM Document 10/17/23 08:41 GM [id number] 10/17/23 08:49 GM Document 10/24/23 09:13 GM [id number] 10/24/23 09:29 GM (1) 4-ABDOMEN INFERIOR - Debridement, SubQ, ea addt'l 20sq cm 1 => 2 or part thereof 3-ABDOMEN SUPERIOR - Debridement - Subq, 1st 20sq cm Yes => No - Debridement, SubQ, ea addt'l 20sq cm 1 => or part thereof (2) 4-ABDOMEN INFERIOR - Debridement - Subq, 1st 20sq cm Yes => No 09/26/23 10/03/23 10/17/23 09:34 08:39 08:41 Wound Center Nurse 2 #5 superpubic -Time -Correct Patient -Correct Side, Site, Position -Correct Procedure -Procedure Performed -Type of Procedure -Clinical Debridement -Tissue Removed -Post Debridement (cm) - Length -Post Debridement (cm) - Width -Post Debridement (cm) - Depth -Total Square (Post) (cm) -Area of Debridement (cm) - Length -Area of Debridement (cm) - Width -Total Square (Area) (cm) -Tunneling -Undermining/Tunneling -Circular Undermining -Wound/Ulcer Outcome -Ulcer Cleansing -Foul Odor after Cleansing -Bleeding Controlled with -Treatment Response -Debridement - Subq, 1st 20sq cm -Debridement, SubQ, ea addt'l 20sq cm or part thereof 4-ABDOMEN INFERIOR -Time 09:35 08:51 08:41 -Correct Patient Yes Yes Yes -Correct Side, Site, Position Yes Yes Yes -Correct Procedure Yes Yes Yes -Procedure Performed Yes Yes Yes -Type of Procedure Debridement Debridement Debridement -Clinical Debridement Subcutaneous Subcutaneous Subcutaneous -Tissue Removed Subcutaneous Subcutaneous Subcutaneous -Post Debridement (cm) - Length 7 6.9 6.3 -Post Debridement (cm) - Width 3.8 4.0 3.4 -Post Debridement (cm) - Depth 1.6 1.8 1.7 -Total Square (Post) (cm) 26.6 27.60 21.42 -Area of Debridement (cm) - Length 7 6.9 6.3 -Area of Debridement (cm) - Width 3.8 4.0 3.4 -Total Square (Area) (cm) 26.6 27.60 21.42 -Tunneling No Yes -Tunneling Position (O'clock) 2 -Tunneling Distance (cm) 1.7 -Undermining/Tunneling Yes No No -Undermining/Tunneling Starts (O'clock 12 ) -Undermining/Tunneling Ends (O'clock) 2 -Maximum Distance (cm) 3 -Circular Undermining No No -Wound/Ulcer Outcome Not Healed Not Healed Not Healed -Ulcer Cleansing Rinsed/ Rinsed/ Rinsed/ Irrigated with Irrigated with Irrigated with Saline Saline Saline -Foul Odor after Cleansing No No No -Bioengineered Tissue No No -Bleeding Controlled with Pressure Pressure Pressure -Treatment Response Procedure Procedure Procedure Tolerated Well Tolerated Well Tolerated Well -Debridement - Subq, 1st 20sq cm Yes No Yes -Debridement, SubQ, ea addt'l 20sq cm 2 2 or part thereof 3-ABDOMEN SUPERIOR -Time 09:37 08:52 08:41 -Correct Patient Yes Yes Yes -Correct Side, Site, Position Yes Yes Yes -Correct Procedure Yes Yes Yes -Procedure Performed Yes Yes Yes -Type of Procedure Debridement Debridement Debridement -Clinical Debridement Subcutaneous Subcutaneous Subcutaneous -Tissue Removed Subcutaneous Subcutaneous Subcutaneous -Post Debridement (cm) - Length 7 7.2 6.0 -Post Debridement (cm) - Width 4.3 5.0 4.3 -Post Debridement (cm) - Depth 2.2 2.2 1.7 -Total Square (Post) (cm) 30.1 36.00 25.80 -Area of Debridement (cm) - Length 7 7.2 6.0 -Area of Debridement (cm) - Width 4.3 5.0 4.3 -Total Square (Area) (cm) 30.1 36.00 25.80 -Tunneling No Yes -Tunneling Position (O'clock) 4 -Tunneling Distance (cm) 1.6 -Undermining/Tunneling Yes No No -Undermining/Tunneling Starts (O'clock 3 ) -Undermining/Tunneling Ends (O'clock) 5 -Maximum Distance (cm) 2 -Circular Undermining No No -Wound/Ulcer Outcome Not Healed Not Healed Not Healed -Ulcer Cleansing Rinsed/ Rinsed/ Rinsed/ Irrigated with Irrigated with Irrigated with Saline Saline Saline -Foul Odor after Cleansing No No No -Bioengineered Tissue No No -Bleeding Controlled with Pressure Pressure Pressure -Treatment Response Procedure Procedure Procedure Tolerated Well Tolerated Well Tolerated Well -Debridement - Subq, 1st 20sq cm No Yes Yes -Debridement, SubQ, ea addt'l 20sq cm 3 or part thereof Pain Scale: 0-10 Numeric Is Patient Pain Free? Yes Yes Yes 10/24/23 09:13 Wound Center Nurse 2 #5 superpubic -Time 09:27 -Correct Patient Yes -Correct Side, Site, Position Yes -Correct Procedure Yes -Procedure Performed Yes -Type of Procedure Debridement -Clinical Debridement Subcutaneous -Tissue Removed Subcutaneous -Post Debridement (cm) - Length 1.0 -Post Debridement (cm) - Width 1.0 -Post Debridement (cm) - Depth 3.0 -Total Square (Post) (cm) 1.00 -Area of Debridement (cm) - Length 1.0 -Area of Debridement (cm) - Width 1.0 -Total Square (Area) (cm) 1.00 -Tunneling No -Undermining/Tunneling No -Circular Undermining No -Wound/Ulcer Outcome Not Healed -Ulcer Cleansing Rinsed/ Irrigated with Saline -Foul Odor after Cleansing No -Bleeding Controlled with Pressure -Treatment Response Procedure Tolerated Well -Debridement - Subq, 1st 20sq cm Yes -Debridement, SubQ, ea addt'l 20sq cm 2 or part thereof 4-ABDOMEN INFERIOR -Time 09:15 -Correct Patient Yes -Correct Side, Site, Position Yes -Correct Procedure Yes -Procedure Performed Yes -Type of Procedure Debridement -Clinical Debridement Subcutaneous -Tissue Removed Subcutaneous -Post Debridement (cm) - Length 6.0 -Post Debridement (cm) - Width 4.0 -Post Debridement (cm) - Depth 1.5 -Total Square (Post) (cm) 24.00 -Area of Debridement (cm) - Length 6.0 -Area of Debridement (cm) - Width 4.0 -Total Square (Area) (cm) 24.00 -Tunneling Yes -Tunneling Position (O'clock) 2 -Tunneling Distance (cm) 2.0 -Undermining/Tunneling No -Undermining/Tunneling Starts (O'clock ) -Undermining/Tunneling Ends (O'clock) -Maximum Distance (cm) -Circular Undermining No -Wound/Ulcer Outcome Not Healed -Ulcer Cleansing Rinsed/ Irrigated with Saline -Foul Odor after Cleansing No -Bioengineered Tissue No -Bleeding Controlled with Pressure -Treatment Response Procedure Tolerated Well -Debridement - Subq, 1st 20sq cm No -Debridement, SubQ, ea addt'l 20sq cm or part thereof 3-ABDOMEN SUPERIOR -Time 09:15 -Correct Patient Yes -Correct Side, Site, Position Yes -Correct Procedure Yes -Procedure Performed Yes -Type of Procedure Debridement -Clinical Debridement Subcutaneous -Tissue Removed Subcutaneous -Post Debridement (cm) - Length 5.4 -Post Debridement (cm) - Width 4.4 -Post Debridement (cm) - Depth 1.5 -Total Square (Post) (cm) 23.76 -Area of Debridement (cm) - Length 5.4 -Area of Debridement (cm) - Width 4.4 -Total Square (Area) (cm) 23.76 -Tunneling Yes -Tunneling Position (O'clock) 4 -Tunneling Distance (cm) 1.4 -Undermining/Tunneling No -Undermining/Tunneling Starts (O'clock ) -Undermining/Tunneling Ends (O'clock) -Maximum Distance (cm) -Circular Undermining No -Wound/Ulcer Outcome Not Healed -Ulcer Cleansing Rinsed/ Irrigated with Saline -Foul Odor after Cleansing No -Bioengineered Tissue No -Bleeding Controlled with Pressure -Treatment Response Procedure Tolerated Well -Debridement - Subq, 1st 20sq cm No -Debridement, SubQ, ea addt'l 20sq cm or part thereof Pain Scale: 0-10 Numeric Is Patient Pain Free? Yes - Nurse 3 - General Ulcer D/C NN Start: 09/26/23 09:07 Freq: Status: Active Protocol: Activity Type Activity Date Activity User E-sign Co-sign Detail Recorded Client Recorded Date Recorded By Document 09/26/23 10:01 JF 000 09/26/23 10:02 JF Document 10/03/23 09:00 RB wound 10/03/23 09:01 RB Document 10/17/23 08:58 RB [id number] 10/17/23 08:59 RB Document 10/24/23 10:05 RB [id number] 10/24/23 10:07 RB 09/26/23 10/03/23 10/17/23 10:01 09:00 08:58 Wound Care Center Nurse 3 #5 superpubic -Negative Pressure Wound Therapy -Setting (mmHg) -Negative Pressure is -NPWT Application Charge 4-ABDOMEN INFERIOR -Ulcer Cleansing Rinsed/ Wound Cleanser Irrigated with Saline -Foul Odor after Cleansing No -Negative Pressure Wound Therapy Continue Continue -Setting (mmHg) 150 150 -Negative Pressure is Continuous Continuous -Other Dressing dakins moistened gauze -Primary Dressing Covered/Secured with Secured with Tape -Other Covering ABD -NPWT Application Charge NPWT > 50 sq cm NPWT & ($) Debridement (nc ) 3-ABDOMEN SUPERIOR -Ulcer Cleansing Rinsed/ Wound Cleanser Irrigated with Saline -Foul Odor after Cleansing No -Negative Pressure Wound Therapy Continue Continue -Setting (mmHg) 150 150 -Negative Pressure is Continuous Continuous -Other Dressing dakins moistened gauze / ABD -Primary Dressing Covered/Secured with Secured with Tape -NPWT Application Charge NPWT - Multiple NPWT - Multiple Locations Locations Matilde-Wound Care Barrier Treatment Response Procedure Procedure Tolerated Well Tolerated Well Pain Scale: 0-10 Numeric Is Patient Pain Free? Yes Yes Yes WC - Visit Discharge Discharge Condition Stable Stable Stable Ambulatory Status Ambulatory Ambulatory Ambulatory Transportation Private Auto Private Auto Private Auto Accompanied by Medication Reconcilliation completed & Yes No No provided to patient/care provider Clinical Summary of Care Provided Yes Yes Yes Notes: 10/24/23 10:05 Wound Care Center Nurse 3 #5 superpubic -Negative Pressure Wound Therapy Continue -Setting (mmHg) 150 -Negative Pressure is Continuous -NPWT Application Charge NPWT - Multiple Locations 4-ABDOMEN INFERIOR -Ulcer Cleansing -Foul Odor after Cleansing -Negative Pressure Wound Therapy Continue -Setting (mmHg) 150 -Negative Pressure is Continuous -Other Dressing -Primary Dressing Covered/Secured with -Other Covering -NPWT Application Charge NPWT & Debridement (nc ) 3-ABDOMEN SUPERIOR -Ulcer Cleansing -Foul Odor after Cleansing -Negative Pressure Wound Therapy Continue -Setting (mmHg) 150 -Negative Pressure is Continuous -Other Dressing -Primary Dressing Covered/Secured with -NPWT Application Charge NPWT - Multiple Locations Matilde-Wound Care Treatment Response Procedure Tolerated Well Pain Scale: 0-10 Numeric Is Patient Pain Free? Yes WC - Visit Discharge Discharge Condition Stable Ambulatory Status Ambulatory Transportation Private Auto Accompanied by Medication Reconcilliation completed & No provided to patient/care provider Clinical Summary of Care Provided Yes Notes: Abdominal binder Additional Wound Wound debrided: Abdomen (Inferior) Type of Debridement: Excisional debridement Anesthesia Used: 4% Lidocaine Solution Depth: Down to and including healthy tissue and in the subcutaneous layer Percentage of wound debrided: 100 Instrument Used: 5mm curette Tissue Removed: Slough and devitalized tissue Severity: Fat Layer Exposed Amount of bleeding with debridement: Mild Bleeding Controlled with: Pressure Patient tolerated procedure: Patient tolerated procedure well Additional Wound Wound debrided: Abdomen (suprapubic) Type of Debridement: Excisional debridement Anesthesia Used: 4% Lidocaine Solution Depth: Down to and including healthy tissue and in the subcutaneous layer Percentage of wound debrided: 100 Instrument Used: 3mm curette and 5mm curette Tissue Removed: Devitalized tissue Severity: Fat Layer Exposed Amount of bleeding with debridement: Mild Bleeding Controlled with: Pressure Patient tolerated procedure: Patient tolerated procedure well Assessment/Plan Assessment/Plan (1) Non-healing surgical wound: CODE(S): T81.89XA - Other complications of procedures, not elsewhere classified, initial encounter QUALIFIERS: Encounter type: initial encounter Qualified Code(s): T81.89XA - Other complications of procedures, not elsewhere classified, initial encounter (2) Type 2 diabetes mellitus: CODE(S): E11.9 - Type 2 diabetes mellitus without complications (3) History of colostomy reversal: CODE(S): Z98.890 - Other specified postprocedural states (4) Surgical wound breakdown: CODE(S): T81.31XA - Disruption of external operation (surgical) wound, not elsewhere classified, initial encounter PLAN: Plan Debridement done as documented above, procedure was well-tolerated. No acute concerns at this time. As above, an inferior area of opening/skin breakdown with purulent drainage noted on examination. His states that it was noted a few days ago however at that time, no purulence. He feels well, no chills or fever. Following debridement, good granulation appreciated, probes deep. Consideration at this time is a sinus tract/fistula and I believe he would benefit from imaging. For continuity, I have asked that he reach out to his primary surgeon to have this done at [place] however if he is unable to get a hold of his primary surgeon, will order CAT scan/fistulogram here. Cultures taken, will review. Prior postsurgical wounds appear stable/intact with no significant worsening. Continue wound VAC to all wounds/ulcers at 150 mmHg, change every other day. Continue optimal diabetes control and dietary protein intake. Continue other chronic wound care management. His questions were answered and he was advised to let us know if he has any further questions or concerns. Follow-up in 1 week. This note was generated with [email or web address] dictation software. It may contain incorrect words, spelling, and punctuation that were not noted in checking the note before signing.
--- NOTE | 2023-10-30 09:08 | WC ---
PHOTO 10/24/23 ABD
--- NOTE | 2023-11-01 08:52 | WC ---
PHOTO 10/24/23 ABD
== END 2023-10-26 23:59 | disposition home or self-care (01) ==
LOC: WC 08:45
PROVIDERS: PCP Internal Medicine; Referring Provider Internal Medicine; Visit Provider Internal Medicine
DX: T81.89XA Other complications of procedures, not elsewhere classified, initial encounter (principal); Z93.3 Colostomy status; E11.9 Type 2 diabetes mellitus without complications; T81.31XA Disruption of external operation (surgical) wound, not elsewhere classified, initial encounter; I10 Essential (primary) hypertension; Z86.16 Personal history of COVID-19; Z79.84 Long term (current) use of oral hypoglycemic drugs; Z98.890 Other specified postprocedural states
CPT/HCPCS: 11042; 11045; 87070; 87075; 87077; 87186; 87205; 97606; 99203; 99213; G0463

== ENCOUNTER 2023-11-21 08:45 | Outpatient (RCR) | payer OTHER, SELFPAY ==
[2023-10-27 00:38] VITALS: BP 143/76; PULSE 84; RESP 16; TEMP 36.6; BMI 36.9
[2023-10-31 08:48] VITALS: BP 160/79; PULSE 90; RESP 16; TEMP 35.9; BMI 36.9
--- NOTE | 2023-10-31 11:01 | PCM.WC.PN ---
History of Present Illness Date of Service: 10/31/23 Chief Complaint: Non healing surgical wound History of Wound: Mr. Duque is a 62 yo well-known to me. Last seen here over a month ago. He had been discharged due to plan for closure following colostomy reversal. Surgery was uneventful however, less than a week after surgery, he states that his wound breakdown/dehisced. Initially applied Dakin's dressing but subsequently, started a wound VAC. Since starting wound VAC, he states that there has been much better improvement. Currently set at 150 mmHg. History of diabetes mellitus which is well-controlled. He reports good protein intake. He feels well and denies any acute concerns at this time. Progress of Wound: No acute concerns at this time. He denies any significant drainage from the wound/ulcer. Started antibiotics 2 days ago due to the holiday, no concerning side effects in that regard. Yet to hear from his surgeons office. Both inferior ulcers appear to have morphed into 1. Objective Data Objective Data Vital Signs: Vital Signs Temp Pulse Resp BP 96.6 F L 90 16 160/79 H 10/31/23 08:48 10/31/23 08:48 10/31/23 08:48 10/31/23 08:48 Weight: 250 lb Body Mass Index (BMI) 36.9 Charges/Coding Procedures Integumentary 111xxx-113xx: [id number] Hannah subq tissue 20 sq cm/< Add On Codes: 54770 Hannah subq tissue add-on (x2. Additional square centimeter debrided, please refer to clinical note.) Physical Exam Const alert, oriented x3 and no apparent distress General Appearance: cooperative, comfortable and well kempt HEENT normocephalic, head/scalp atraumatic and hearing grossly normal bilaterally Eyes EOMs intact bilaterally General Eye: normal appearance of both eyes Neck full ROM and supple General: normal visual inspection Resp normal respiratory effort and normal air movement GI non-tender and non-distended Skin Wounds: wounds noted size Size: See clinical note, bed granulating well, margins well approximated, no odor and open Neuro oriented x3, CN's II-XII intact bilaterally, moves all extremities and no focal motor deficits Psych mental status grossly normal, thought process normal and cooperative Debridement Note Debridement Note Wound debrided: Abdomen (superior) Type of Debridement: Excisional debridement Anesthesia Used: 4% Lidocaine Solution Depth: Down to and including healthy tissue and in the subcutaneous layer Percentage of wound debrided: 100 Instrument Used: 5mm curette Tissue Removed: Slough and devitalized tissue Severity: Fat Layer Exposed Amount of bleeding with debridement: Mild Bleeding Controlled with: Pressure Patient tolerated procedure: Patient tolerated procedure well Post-Debridement Measurements and Additional Note: Post-Debridement Measurements/Treatment JYOTHI - Nurse 1 - General Ulcer Assessment Start: 10/31/23 08:48 Freq: Status: Active Protocol: JUSTIN Activity Type Activity Date Activity User E-sign Co-sign Detail Recorded Client Recorded Date Recorded By Document 10/31/23 08:48 [id number] 10/31/23 09:04 10/31/23 08:48 WC - Today's Visit Information Type of service Follow-up Visit (Physician/[employer] ) Arrival Mode Ambulatory Patient Identification Verified (Name & Yes ) Patient Requires Transmission-Based No Precautions Height and Weight Body Mass Index (BMI) 36.9 BMI Classification Obese Vital Signs Temperature (97.8 F-99.1 F) 96.6 F L Temperature Source Temporal Pulse Rate (60-100) 90 Pulse Location Monitor Respiratory Rate (12-18) 16 Respiratory rate source Observation Blood Pressure (90/60-120/80) 160/79 H Blood Pressure Mean (mm Hg) 106 Source Monitor Position Sitting Blood Pressure Location Left Arm History Since Last Visit- (Skip if this is Patient's initial visit) Have you changed medications since your Yes last visit? Any new allergies or adverse reactions No Had a fall/change in ADL's that may No increase risk of falls Signs or symptoms of abuse and/or No neglect since last visit Have you been in the hospital since your No last visit? Has dressing in place as prescribed Yes Has compression in place as prescribed N/A Has offloadiing in place as prescribed N/A Experienced any changes in pain level or No management Pain Scale: 0-10 Numeric Is Patient Pain Free? Yes JYOTHI Dalal Nurse 1 - General Ulcer Measurement Start: 10/31/23 08:48 Freq: Status: Active Protocol: Activity Type Activity Date Activity User E-sign Co-sign Detail Recorded Client Recorded Date Recorded By Document 10/31/23 08:48 RADHA [id number] 10/31/23 09:04 10/31/23 08:48 Wound Center Nurse 1 #5 superpubic -Current Size (cm) - Length 0.5 -Current Size (cm) - Width 0.4 -Current Size (cm) - Depth 1.5 -Total Square Cm 0.20 -Photo Taken Yes -Epithelialization None Present -Exudate Amt Small -Exudate Type Serosanguineous -Wound Margin Flat & Intact -Granulation Amt Large (67-100%) -Granulation Quality Red -Slough/Fibrin No -Texture (Matilde-wound Skin Appearance) No Abnormality -Moisture (Matilde-wound Skin Appearance) No Abnormality -Color (Matilde-wound Skin Appearance) No Abnormality -Temperature (Matilde-wound Skin No Abnormality Appearance) (Pt Warm) -Tenderness on Palpation (Matilde-wound No Skin Appearance) -Ulcer Cleansing Soap and Water -Anesthetic Used 4% Lidocaine Solution 4-ABDOMEN INFERIOR- CLUSTER -Current Size (cm) - Length 6.2 -Current Size (cm) - Width 4.3 -Current Size (cm) - Depth 0.5 -Total Square Cm 26.66 -Date of Last Picture (Recall this 10/31/23 field) -Exudate Amt Small -Exudate Type Serosanguineous -Wound Margin Flat & Intact -Granulation Amt Large (67-100%) -Granulation Quality Red -Structure Exposed N/A -Texture (Matilde-wound Skin Appearance) No Abnormality -Moisture (Matilde-wound Skin Appearance) No Abnormality -Color (Matilde-wound Skin Appearance) No Abnormality -Temperature (Matilde-wound Skin No Abnormality Appearance) (Pt Warm) -Tenderness on Palpation (Matilde-wound No Skin Appearance) -Ulcer Cleansing Soap and Water -Foul Odor after Cleansing No -Anesthetic Used 4% Lidocaine Solution 3-ABDOMEN SUPERIOR -Current Size (cm) - Length 5 -Current Size (cm) - Width 5 -Current Size (cm) - Depth 1 -Total Square Cm 25 -Date of Last Picture (Recall this 10/31/23 field) -Undermining/Tunneling Yes -Undermining/Tunneling Starts (O'clock 2 ) -Undermining/Tunneling Ends (O'clock) 2 -Maximum Distance (cm) 1 -Exudate Amt Small -Exudate Type Serosanguineous -Wound Margin Flat & Intact -Granulation Amt Large (67-100%) -Granulation Quality Red -Structure Exposed N/A -Texture (Matilde-wound Skin Appearance) No Abnormality, Assessed -Moisture (Matilde-wound Skin Appearance) No Abnormality -Color (Matilde-wound Skin Appearance) No Abnormality -Temperature (Matilde-wound Skin No Abnormality Appearance) (Pt Warm) -Tenderness on Palpation (Matilde-wound No Skin Appearance) -Ulcer Cleansing Soap and Water -Anesthetic Used 4% Lidocaine Solution WC - Nurse 2 - General Ulcer CM Notes Start: 10/31/23 08:48 Freq: Status: Active Protocol: Activity Type Activity Date Activity User E-sign Co-sign Detail Recorded Client Recorded Date Recorded By Document 10/31/23 09:18 DS [id number] 10/31/23 09:32 DS 10/31/23 09:18 Wound Center Nurse 2 #5 superpubic -Time 09:18 -Correct Patient Yes -Correct Side, Site, Position Yes -Correct Procedure Yes -Procedure Performed Yes -Type of Procedure Debridement -Clinical Debridement Subcutaneous -Tissue Removed Subcutaneous -Tunneling No -Undermining/Tunneling No -Circular Undermining No -Wound/Ulcer Outcome Not Healed -Ulcer Cleansing Rinsed/ Irrigated with Saline -Bioengineered Tissue No -Bleeding Controlled with Pressure -Treatment Response Procedure Tolerated Well 4-ABDOMEN INFERIOR- CLUSTER -Time 09:19 -Correct Patient Yes -Correct Side, Site, Position Yes -Correct Procedure Yes -Procedure Performed Yes -Type of Procedure Debridement -Clinical Debridement Subcutaneous -Tissue Removed Subcutaneous -Post Debridement (cm) - Length 6.1 -Post Debridement (cm) - Width 3.5 -Post Debridement (cm) - Depth 1.7 -Total Square (Post) (cm) 21.35 -Area of Debridement (cm) - Length 6.1 -Area of Debridement (cm) - Width 3.5 -Total Square (Area) (cm) 21.35 -Tunneling Yes -Tunneling Position (O'clock) 2 -Tunneling Distance (cm) 1.5 -Undermining/Tunneling No -Circular Undermining No -Wound/Ulcer Outcome Not Healed -Ulcer Cleansing Rinsed/ Irrigated with Saline -Bioengineered Tissue No -Bleeding Controlled with Pressure -Treatment Response Procedure Tolerated Well -Debridement - Subq, 1st 20sq cm Yes -Debridement, SubQ, ea addt'l 20sq cm 2 or part thereof 3-ABDOMEN SUPERIOR -Time 09:19 -Correct Patient Yes -Correct Side, Site, Position Yes -Correct Procedure Yes -Procedure Performed Yes -Type of Procedure Debridement -Clinical Debridement Subcutaneous -Tissue Removed Subcutaneous -Post Debridement (cm) - Length 5 -Post Debridement (cm) - Width 4.7 -Post Debridement (cm) - Depth 1.8 -Total Square (Post) (cm) 23.5 -Area of Debridement (cm) - Length 5.0 -Area of Debridement (cm) - Width 4.7 -Total Square (Area) (cm) 23.50 -Tunneling No -Undermining/Tunneling Yes -Undermining/Tunneling Starts (O'clock 3 ) -Undermining/Tunneling Ends (O'clock) 5 -Maximum Distance (cm) 1.8 -Circular Undermining No -Wound/Ulcer Outcome Not Healed -Ulcer Cleansing Rinsed/ Irrigated with Saline -Bioengineered Tissue No -Bleeding Controlled with Pressure -Treatment Response Procedure Tolerated Well -Debridement - Subq, 1st 20sq cm No Pain Scale: 0-10 Numeric Is Patient Pain Free? Yes - Nurse 3 - General Ulcer D/C NN Start: 10/31/23 08:48 Freq: Status: Active Protocol: Activity Type Activity Date Activity User E-sign Co-sign Detail Recorded Client Recorded Date Recorded By Document 10/31/23 10:07 SOPHIE [id number] 10/31/23 10:10 SOPHIE 10/31/23 10:07 Wound Care Center Nurse 3 4-ABDOMEN INFERIOR- CLUSTER -Negative Pressure Wound Therapy Continue -Setting (mmHg) 150 -Negative Pressure is Continuous -NPWT Application Charge NPWT & Debridement (nc ) 3-ABDOMEN SUPERIOR -Negative Pressure Wound Therapy Continue -Setting (mmHg) 150 -Negative Pressure is Continuous -NPWT Application Charge NPWT - Multiple Locations Pain Scale: 0-10 Numeric Is Patient Pain Free? Yes - Visit Discharge Discharge Condition Stable Ambulatory Status Ambulatory Transportation Private Auto Medication Reconcilliation completed & No provided to patient/care provider Clinical Summary of Care Provided Yes Additional Wound Wound debrided: Abdomen (inferior cluster) Type of Debridement: Excisional debridement Anesthesia Used: 4% Lidocaine Solution Depth: Down to and including healthy tissue and in the subcutaneous layer Percentage of wound debrided: 100 Instrument Used: 5mm curette Tissue Removed: Slough and devitalized tissue Severity: Fat Layer Exposed Amount of bleeding with debridement: Mild Bleeding Controlled with: Pressure Patient tolerated procedure: Patient tolerated procedure well Assessment/Plan Assessment/Plan (1) Non-healing surgical wound: CODE(S): T81.89XA - Other complications of procedures, not elsewhere classified, initial encounter QUALIFIERS: Encounter type: initial encounter Qualified Code(s): T81.89XA - Other complications of procedures, not elsewhere classified, initial encounter (2) Type 2 diabetes mellitus: CODE(S): E11.9 - Type 2 diabetes mellitus without complications (3) History of colostomy reversal: CODE(S): Z98.890 - Other specified postprocedural states (4) Surgical wound breakdown: CODE(S): T81.31XA - Disruption of external operation (surgical) wound, not elsewhere classified, initial encounter PLAN: Plan Debridement done as documented above, procedure was well-tolerated. No acute concerns at this time. Some improvement noted especially in the new opening/ulceration noted last week. No drainage and good granulation. As above, has been on antibiotics for just 2 days due to the holiday, tolerating it well so far. Yet to hear from his surgeon however, with improvement will hold off imaging at this time and reevaluate at next visit. Continue wound VAC to all wounds/ulcers at 150 mmHg, change every other day. Continue optimal diabetes control and dietary protein intake. Continue other chronic wound care management. His questions were answered and he was advised to let us know if he has any further questions or concerns. Follow-up in 1 week. This note was generated with [employer] dictation software. It may contain incorrect words, spelling, and punctuation that were not noted in checking the note before signing.
--- NOTE | 2023-11-04 08:40 | WC ---
PHOTO 10/31/23 ABD SUP/ABD NF/ABD SUPER PUBIC
[2023-11-07 08:32] VITALS: BP 145/83; PULSE 87; RESP 18; TEMP 36.1; BMI 36.9
--- NOTE | 2023-11-07 09:55 | PCM.WC.PN ---
History of Present Illness Date of Service: 11/07/23 Chief Complaint: Non healing surgical wound History of Wound: Mr. Duque is a 62 yo well-known to me. Last seen here over a month ago. He had been discharged due to plan for closure following colostomy reversal. Surgery was uneventful however, less than a week after surgery, he states that his wound breakdown/dehisced. Initially applied Dakin's dressing but subsequently, started a wound VAC. Since starting wound VAC, he states that there has been much better improvement. Currently set at 150 mmHg. History of diabetes mellitus which is well-controlled. He reports good protein intake. He feels well and denies any acute concerns at this time. Progress of Wound: No acute concerns at this time. Stable wounds/ulcers. He states that he only had to change his canister once, no significant drainage. Objective Data Objective Data Vital Signs: Vital Signs Temp Pulse Resp BP 97 F L 87 18 145/83 H 11/07/23 08:32 11/07/23 08:32 11/07/23 08:32 11/07/23 08:32 Weight: 250 lb Body Mass Index (BMI) 36.9 Charges/Coding Procedures Integumentary 111xxx-113xx: [id number] Hannah subq tissue 20 sq cm/< Add On Codes: 36161 Hannah subq tissue add-on (x2. Additional square centimeter debrided, please refer to clinical note) Physical Exam Const alert, oriented x3 and no apparent distress General Appearance: cooperative, comfortable and well kempt HEENT normocephalic, head/scalp atraumatic and hearing grossly normal bilaterally Eyes EOMs intact bilaterally General Eye: normal appearance of both eyes Neck full ROM and supple General: normal visual inspection Resp normal respiratory effort and normal air movement GI non-tender and non-distended Skin Wounds: wounds noted size Size: See clinical note, bed granulating well, margins well approximated, no odor and open Neuro oriented x3, CN's II-XII intact bilaterally, moves all extremities and no focal motor deficits Psych mental status grossly normal, thought process normal and cooperative Debridement Note Debridement Note Wound debrided: Abdomen (superior) Type of Debridement: Excisional debridement Anesthesia Used: 4% Lidocaine Solution Depth: Down to and including healthy tissue and in the subcutaneous layer Percentage of wound debrided: 100 Instrument Used: 7mm curette Tissue Removed: Slough and devitalized tissue Severity: Fat Layer Exposed Amount of bleeding with debridement: Mild Bleeding Controlled with: Pressure Patient tolerated procedure: Patient tolerated procedure well Post-Debridement Measurements and Additional Note: Post-Debridement Measurements/Treatment WC - Nurse 1 - General Ulcer Assessment Start: 10/31/23 08:48 Freq: Status: Active Protocol: JUSTIN Activity Type Activity Date Activity User E-sign Co-sign Detail Recorded Client Recorded Date Recorded By Document 10/31/23 08:48 CP [id number] 10/31/23 09:04 CP Document 11/07/23 08:32 DL [id number] 11/07/23 08:41 DL 10/31/23 11/07/23 08:48 08:32 WC - Today's Visit Information Type of service Follow-up Visit Follow-up 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 ) ) Arrival Mode Ambulatory Ambulatory Transfer Assistance None Patient Identification Verified (Name & Yes Yes ) Patient Requires Transmission-Based No No Precautions Height and Weight Body Mass Index (BMI) 36.9 36.9 BMI Classification Obese Obese Vital Signs Temperature (97.8 F-99.1 F) 96.6 F L 97 F L Temperature Source Temporal Temporal Pulse Rate (60-100) 90 87 Pulse Location Monitor Monitor Respiratory Rate (12-18) 16 18 Respiratory rate source Observation Observation Blood Pressure (90/60-120/80) 160/79 H 145/83 H Blood Pressure Mean (mm Hg) 106 103 Source Monitor Monitor Position Sitting Blood Pressure Location Left Arm History Since Last Visit- (Skip if this is Patient's initial visit) Have you changed medications since your Yes No last visit? Any new allergies or adverse reactions No No Had a fall/change in ADL's that may No No increase risk of falls Signs or symptoms of abuse and/or No No neglect since last visit Have you been in the hospital since your No No last visit? Has dressing in place as prescribed Yes Yes Has compression in place as prescribed N/A N/A Has offloadiing in place as prescribed N/A N/A Experienced any changes in pain level or No No management Pain Scale: 0-10 Numeric Is Patient Pain Free? Yes Yes JYOTHI Dalal Nurse 1 - General Ulcer Measurement Start: 10/31/23 08:48 Freq: Status: Active Protocol: Activity Type Activity Date Activity User E-sign Co-sign Detail Recorded Client Recorded Date Recorded By Document 10/31/23 08:48 CP [id number] 10/31/23 09:04 CP Document 11/07/23 08:32 DL [id number] 11/07/23 08:41 DL 10/31/23 11/07/23 08:48 08:32 Wound Center Nurse 1 #5 superpubic -Current Size (cm) - Length 0.5 -Current Size (cm) - Width 0.4 -Current Size (cm) - Depth 1.5 -Total Square Cm 0.20 -Photo Taken Yes -Epithelialization None Present -Exudate Amt Small -Exudate Type Serosanguineous -Wound Margin Flat & Intact -Granulation Amt Large (67-100%) -Granulation Quality Red -Slough/Fibrin No -Texture (Matilde-wound Skin Appearance) No Abnormality -Moisture (Matilde-wound Skin Appearance) No Abnormality -Color (Matilde-wound Skin Appearance) No Abnormality -Temperature (Matilde-wound Skin No Abnormality Appearance) (Pt Warm) -Tenderness on Palpation (Matilde-wound No Skin Appearance) -Ulcer Cleansing Soap and Water -Anesthetic Used 4% Lidocaine Solution 4-ABDOMEN INFERIOR- CLUSTER -Current Size (cm) - Length 6.2 0.6 -Current Size (cm) - Width 4.3 3 -Current Size (cm) - Depth 0.5 0.2 -Total Square Cm 26.66 1.8 -Date of Last Picture (Recall this 10/31/23 field) -Exudate Amt Small Medium -Exudate Type Serosanguineous Serosanguineous -Wound Margin Flat & Intact Distinct, Outline Attached -Granulation Amt Large (67-100%) Large (67-100%) -Granulation Quality Red [place] -Necrosis Amt Small (1-33%) -Necrotic Tissue Type Adherent Slough -Structure Exposed N/A N/A -Texture (Matilde-wound Skin Appearance) No Abnormality Scarring,Rash -Moisture (Matilde-wound Skin Appearance) No Abnormality No Abnormality -Color (Matilde-wound Skin Appearance) No Abnormality No Abnormality -Temperature (Matilde-wound Skin No Abnormality No Abnormality Appearance) (Pt Warm) (Pt Warm) -Tenderness on Palpation (Matilde-wound No No Skin Appearance) -Ulcer Cleansing Soap and Water Soap and Water -Foul Odor after Cleansing No No -Anesthetic Used 4% Lidocaine 5% Lidocaine Solution Gel 3-ABDOMEN SUPERIOR -Current Size (cm) - Length 5 5.3 -Current Size (cm) - Width 5 3.8 -Current Size (cm) - Depth 1 0.2 -Total Square Cm 25 20.14 -Date of Last Picture (Recall this 10/31/23 field) -Tunneling Position (O'clock) 5 -Tunneling Distance (cm) 1.1 -Undermining/Tunneling Yes -Undermining/Tunneling Starts (O'clock 2 ) -Undermining/Tunneling Ends (O'clock) 2 -Maximum Distance (cm) 1 -Exudate Amt Small Medium -Exudate Type Serosanguineous Serosanguineous -Wound Margin Flat & Intact Distinct, Outline Attached -Granulation Amt Large (67-100%) Large (67-100%) -Granulation Quality Red [place],Red -Necrosis Amt Small (1-33%) -Necrotic Tissue Type Adherent Slough -Structure Exposed N/A -Texture (Matilde-wound Skin Appearance) No Abnormality, Scarring,Rash Assessed -Moisture (Matilde-wound Skin Appearance) No Abnormality No Abnormality -Color (Matilde-wound Skin Appearance) No Abnormality No Abnormality -Temperature (Matilde-wound Skin No Abnormality No Abnormality Appearance) (Pt Warm) (Pt Warm) -Tenderness on Palpation (Matilde-wound No No Skin Appearance) -Ulcer Cleansing Soap and Water Soap and Water -Foul Odor after Cleansing No -Anesthetic Used 4% Lidocaine 5% Lidocaine Solution Gel WC - Nurse 2 - General Ulcer CM Notes Start: 10/31/23 08:48 Freq: Status: Active Protocol: Activity Type Activity Date Activity User E-sign Co-sign Detail Recorded Client Recorded Date Recorded By Document 10/31/23 09:18 DS [id number] 10/31/23 09:32 DS Document 11/07/23 09:21 [id number] 11/07/23 09:27 10/31/23 11/07/23 09:18 09:21 Wound Center Nurse 2 #5 superpubic -Time 09:18 -Correct Patient Yes -Correct Side, Site, Position Yes -Correct Procedure Yes -Procedure Performed Yes -Type of Procedure Debridement -Clinical Debridement Subcutaneous -Tissue Removed Subcutaneous -Tunneling No -Undermining/Tunneling No -Circular Undermining No -Wound/Ulcer Outcome Not Healed -Ulcer Cleansing Rinsed/ Irrigated with Saline -Bioengineered Tissue No -Bleeding Controlled with Pressure -Treatment Response Procedure Tolerated Well 4-ABDOMEN INFERIOR- CLUSTER -Time 09:19 09:21 -Correct Patient Yes Yes -Correct Side, Site, Position Yes Yes -Correct Procedure Yes Yes -Procedure Performed Yes Yes -Type of Procedure Debridement Debridement -Clinical Debridement Subcutaneous Subcutaneous -Tissue Removed Subcutaneous Subcutaneous -Post Debridement (cm) - Length 6.1 6.2 -Post Debridement (cm) - Width 3.5 3.4 -Post Debridement (cm) - Depth 1.7 0.6 -Total Square (Post) (cm) 21.35 21.08 -Area of Debridement (cm) - Length 6.1 6.2 -Area of Debridement (cm) - Width 3.5 3.4 -Total Square (Area) (cm) 21.35 21.08 -Tunneling Yes No -Tunneling Position (O'clock) 2 -Tunneling Distance (cm) 1.5 -Undermining/Tunneling No No -Circular Undermining No No -Wound/Ulcer Outcome Not Healed Not Healed -Ulcer Cleansing Rinsed/ Rinsed/ Irrigated with Irrigated with Saline Saline -Foul Odor after Cleansing No -Bioengineered Tissue No No -Bleeding Controlled with Pressure Pressure -Treatment Response Procedure Procedure Tolerated Well Tolerated Well -Debridement - Subq, 1st 20sq cm Yes No -Debridement, SubQ, ea addt'l 20sq cm 2 or part thereof 3-ABDOMEN SUPERIOR -Time 09:19 09:21 -Correct Patient Yes Yes -Correct Side, Site, Position Yes Yes -Correct Procedure Yes Yes -Procedure Performed Yes Yes -Type of Procedure Debridement Debridement -Clinical Debridement Subcutaneous Subcutaneous -Tissue Removed Subcutaneous Subcutaneous -Post Debridement (cm) - Length 5 5.0 -Post Debridement (cm) - Width 4.7 4.4 -Post Debridement (cm) - Depth 1.8 1.2 -Total Square (Post) (cm) 23.5 22.00 -Area of Debridement (cm) - Length 5.0 5.0 -Area of Debridement (cm) - Width 4.7 4.4 -Total Square (Area) (cm) 23.50 22.00 -Tunneling No No -Undermining/Tunneling Yes No -Undermining/Tunneling Starts (O'clock 3 ) -Undermining/Tunneling Ends (O'clock) 5 -Maximum Distance (cm) 1.8 -Circular Undermining No No -Wound/Ulcer Outcome Not Healed Not Healed -Ulcer Cleansing Rinsed/ Rinsed/ Irrigated with Irrigated with Saline Saline -Foul Odor after Cleansing No -Bioengineered Tissue No No -Bleeding Controlled with Pressure Pressure -Treatment Response Procedure Procedure Tolerated Well Tolerated Well -Debridement - Subq, 1st 20sq cm No Yes -Debridement, SubQ, ea addt'l 20sq cm 2 or part thereof Pain Scale: 0-10 Numeric Is Patient Pain Free? Yes Yes - Nurse 3 - General Ulcer D/C NN Start: 10/31/23 08:48 Freq: Status: Active Protocol: Activity Type Activity Date Activity User E-sign Co-sign Detail Recorded Client Recorded Date Recorded By Document 10/31/23 10:07 KW [id number] 10/31/23 10:10 KW Document 11/07/23 09:46 KW [id number] 11/07/23 09:47 KW 10/31/23 11/07/23 10:07 09:46 Wound Care Center Nurse 3 4-ABDOMEN INFERIOR- CLUSTER -Negative Pressure Wound Therapy Continue -Setting (mmHg) 150 -Negative Pressure is Continuous -Primary Dressing Applied Aquacel Extra -Primary Dressing Covered/Secured with Dry Gauze, Secured with Tape -NPWT Application Charge NPWT & Debridement (nc ) -Aquacel Extra 1 3-ABDOMEN SUPERIOR -Negative Pressure Wound Therapy Continue -Setting (mmHg) 150 -Negative Pressure is Continuous -Other Dressing AQUACEL EXTRA -Primary Dressing Covered/Secured with Dry Gauze, Secured with Tape -NPWT Application Charge NPWT - Multiple Locations Pain Scale: 0-10 Numeric Is Patient Pain Free? Yes Yes - Visit Discharge Discharge Condition Stable Ambulatory Status Ambulatory Transportation Private Auto Medication Reconcilliation completed & No provided to patient/care provider Clinical Summary of Care Provided Yes Additional Wound Wound debrided: Abdomen (inferior cluster) Type of Debridement: Excisional debridement Anesthesia Used: 4% Lidocaine Solution Depth: Down to and including healthy tissue and in the subcutaneous layer Percentage of wound debrided: 100 Instrument Used: 7mm curette Tissue Removed: Slough and devitalized tissue Severity: Fat Layer Exposed Amount of bleeding with debridement: Mild Bleeding Controlled with: Pressure Patient tolerated procedure: Patient tolerated procedure well Assessment/Plan Assessment/Plan (1) Non-healing surgical wound: CODE(S): T81.89XA - Other complications of procedures, not elsewhere classified, initial encounter QUALIFIERS: Encounter type: initial encounter Qualified Code(s): T81.89XA - Other complications of procedures, not elsewhere classified, initial encounter (2) Type 2 diabetes mellitus: CODE(S): E11.9 - Type 2 diabetes mellitus without complications (3) History of colostomy reversal: CODE(S): Z98.890 - Other specified postprocedural states (4) Surgical wound breakdown: CODE(S): T81.31XA - Disruption of external operation (surgical) wound, not elsewhere classified, initial encounter PLAN: Plan Debridement done as documented above, procedure was well-tolerated. No acute concerns at this time. Largely, stable with some improvement. More improvement in the inferior than superior. As above, no significant drainage reported. Will go on a VAC holiday for a week. 30 minutes Dakin's soak and apply Aquacel extra. Cover with foam dressing. Has 2 more doses of antibiotics, has tolerated it well so far. Continue optimal diabetes control and dietary protein intake. Continue other chronic wound care management. His questions were answered and he was advised to let us know if he has any further questions or concerns. Follow-up in 1 week. This note was generated with [employer] dictation software. It may contain incorrect words, spelling, and punctuation that were not noted in checking the note before signing.
[2023-11-14 08:31] VITALS: BP 138/84; PULSE 100; RESP 18; TEMP 36.2; BMI 36.9
--- NOTE | 2023-11-14 09:36 | PCM.WC.PN ---
History of Present Illness Date of Service: 11/14/23 Chief Complaint: Non healing surgical wound History of Wound: Mr. Duque is a 62 yo well-known to me. Last seen here over a month ago. He had been discharged due to plan for closure following colostomy reversal. Surgery was uneventful however, less than a week after surgery, he states that his wound breakdown/dehisced. Initially applied Dakin's dressing but subsequently, started a wound VAC. Since starting wound VAC, he states that there has been much better improvement. Currently set at 150 mmHg. History of diabetes mellitus which is well-controlled. He reports good protein intake. He feels well and denies any acute concerns at this time. Progress of Wound: New area of opening lateral to the inferior ulcer reported today. No pain, noted it while taking a shower this morning. Said to have spontaneously opened with some drainage. Was seen by his surgeon on Saturday and no concerns were noted on examination, some stitches said to have been taken off. Most recent A1c was at 6.3 and he reports optimal protein intake. Objective Data Objective Data Vital Signs: Vital Signs Temp Pulse Resp BP O2 Del Method 97.1 F L 100 18 138/84 H Room Air 11/14/23 08:31 11/14/23 08:31 11/14/23 08:31 11/14/23 08:31 11/14/23 08:31 Oxygen Delivery Method Room Air Weight: 250 lb Body Mass Index (BMI) 36.9 Charges/Coding Procedures Integumentary 111xxx-113xx: 58078 Hannah subq tissue 20 sq cm/< Add On Codes: 19531 Hannah subq tissue add-on (x2. Additional square centimeter debrided, please refer to clinical note.) Physical Exam Const alert, oriented x3 and no apparent distress General Appearance: cooperative, comfortable and well kempt HEENT normocephalic, head/scalp atraumatic and hearing grossly normal bilaterally Eyes EOMs intact bilaterally General Eye: normal appearance of both eyes Neck full ROM and supple General: normal visual inspection Resp normal respiratory effort and normal air movement GI non-tender and non-distended Skin Wounds: wounds noted size Size: See clinical note, bed granulating well and with tunneling, margins well approximated, no odor and open Neuro oriented x3, CN's II-XII intact bilaterally, moves all extremities and no focal motor deficits Psych mental status grossly normal, thought process normal and cooperative Debridement Note Debridement Note Wound debrided: Abdomen (superior) Type of Debridement: Excisional debridement Anesthesia Used: 4% Lidocaine Solution Depth: Down to and including healthy tissue and in the subcutaneous layer Percentage of wound debrided: 100 Instrument Used: 5mm curette Tissue Removed: Slough and devitalized tissue Severity: Fat Layer Exposed Amount of bleeding with debridement: Mild Bleeding Controlled with: Compression and gauze Patient tolerated procedure: Patient tolerated procedure well Post-Debridement Measurements and Additional Note: Post-Debridement Measurements/Treatment - Nurse 1 - General Ulcer Assessment Start: 10/31/23 08:48 Freq: Status: Active Protocol: JUSTIN Activity Type Activity Date Activity User E-sign Co-sign Detail Recorded Client Recorded Date Recorded By Document 10/31/23 08:48 CP [id number] 10/31/23 09:04 CP Document 11/07/23 08:32 DL [id number] 11/07/23 08:41 DL Document 11/14/23 08:31 DS [id number] 11/14/23 08:32 DS 10/31/23 11/07/23 11/14/23 08:48 08:32 08:31 - Today's Visit Information Type of service Follow-up Visit Follow-up Visit Follow-up Visit (Physician/INSURANCE MARKETING SPECIALIST (Physician/INSURANCE MARKETING SPECIALIST (Physician/INSURANCE MARKETING SPECIALIST ) ) ) Arrival Mode Ambulatory Ambulatory Ambulatory Transfer Assistance None Patient Identification Verified (Name & Yes Yes ) Patient Requires Transmission-Based No No Precautions Safety Precautions Fall Prevention Height and Weight Body Mass Index (BMI) 36.9 36.9 36.9 BMI Classification Obese Obese Obese Vital Signs Temperature (97.8 F-99.1 F) 96.6 F L 97 F L 97.1 F L Temperature Source Temporal Temporal Temporal Pulse Rate (60-100) 90 87 100 Pulse Location Monitor Monitor Monitor Respiratory Rate (12-18) 16 18 18 Respiratory rate source Observation Observation Observation Oxygen Delivery Method Room Air Blood Pressure (90/60-120/80) 160/79 H 145/83 H 138/84 H Blood Pressure Mean (mm Hg) 106 103 102 Source Monitor Monitor Position Sitting Blood Pressure Location Left Arm History Since Last Visit- (Skip if this is Patient's initial visit) Have you changed medications since your Yes No No last visit? Any new allergies or adverse reactions No No No Had a fall/change in ADL's that may No No No increase risk of falls Signs or symptoms of abuse and/or No No No neglect since last visit Have you been in the hospital since your No No No last visit? Has dressing in place as prescribed Yes Yes Yes Has compression in place as prescribed N/A N/A N/A Has offloadiing in place as prescribed N/A N/A N/A Experienced any changes in pain level or No No management Left Footwear Regular Shoe Right Footwear Regular Shoe Pain Scale: 0-10 Numeric Is Patient Pain Free? Yes Yes Yes Teaching Assessment Does Patient Smoke tobacco or other No substances Smoking Status Never smoker WC - Nurse 1 - General Ulcer Measurement Start: 10/31/23 08:48 Freq: Status: Active Protocol: Activity Type Activity Date Activity User E-sign Co-sign Detail Recorded Client Recorded Date Recorded By Document 10/31/23 08:48 CP [id number] 10/31/23 09:04 CP Document 11/07/23 08:32 DL [id number] 11/07/23 08:41 DL Document 11/14/23 08:32 DS [id number] 11/14/23 08:51 DS 10/31/23 11/07/23 11/14/23 08:48 08:32 08:32 Wound Center Nurse 1 #5 superpubic -Current Size (cm) - Length 0.5 -Current Size (cm) - Width 0.4 -Current Size (cm) - Depth 1.5 -Total Square Cm 0.20 -Photo Taken Yes -Epithelialization None Present -Exudate Amt Small -Exudate Type Serosanguineous -Wound Margin Flat & Intact -Granulation Amt Large (67-100%) -Granulation Quality Red -Slough/Fibrin No -Texture (Matilde-wound Skin Appearance) No Abnormality -Moisture (Matilde-wound Skin Appearance) No Abnormality -Color (Matilde-wound Skin Appearance) No Abnormality -Temperature (Matilde-wound Skin No Abnormality Appearance) (Pt Warm) -Tenderness on Palpation (Matilde-wound No Skin Appearance) -Ulcer Cleansing Soap and Water -Anesthetic Used 4% Lidocaine Solution #6 lateral inferior abd -Combined with other wound No -Current Size (cm) - Length 0.3 -Current Size (cm) - Width 0.7 -Current Size (cm) - Depth 0.3 -Total Square Cm 0.21 -Undermining/Tunneling Yes -Undermining/Tunneling Starts (O'clock 6 ) -Undermining/Tunneling Ends (O'clock) 10 -Maximum Distance (cm) 3.0 -Classification - Thickness Partial Thickness -Exudate Type Serosanguineous -Wound Margin Distinct, Outline Attached -Texture (Matilde-wound Skin Appearance) Assessed -Moisture (Matilde-wound Skin Appearance) Assessed -Color (Matilde-wound Skin Appearance) Assessed -Temperature (Matilde-wound Skin No Abnormality Appearance) (Pt Warm) -Tenderness on Palpation (Matilde-wound No Skin Appearance) -Ulcer Cleansing Soap and Water -Anesthetic Used 4% Lidocaine Solution 4-ABDOMEN INFERIOR- CLUSTER -Current Size (cm) - Length 6.2 0.6 3.5 -Current Size (cm) - Width 4.3 3 6.1 -Current Size (cm) - Depth 0.5 0.2 0.5 -Total Square Cm 26.66 1.8 21.35 -Date of Last Picture (Recall this 10/31/23 field) -Photo Taken No -Classification - Thickness Partial Thickness -Exudate Amt Small Medium -Exudate Type Serosanguineous Serosanguineous -Wound Margin Flat & Intact Distinct, Outline Attached -Granulation Amt Large (67-100%) Large (67-100%) Large (67-100%) -Granulation Quality Red [place] Red -Slough/Fibrin No -Necrosis Amt Small (1-33%) -Necrotic Tissue Type Adherent Slough -Structure Exposed N/A N/A -Texture (Matilde-wound Skin Appearance) No Abnormality Scarring,Rash Assessed -Moisture (Matilde-wound Skin Appearance) No Abnormality No Abnormality Assessed -Color (Matilde-wound Skin Appearance) No Abnormality No Abnormality Assessed -Temperature (Matilde-wound Skin No Abnormality No Abnormality No Abnormality Appearance) (Pt Warm) (Pt Warm) (Pt Warm) -Tenderness on Palpation (Matilde-wound No No No Skin Appearance) -Ulcer Cleansing Soap and Water Soap and Water Soap and Water -Foul Odor after Cleansing No No -Anesthetic Used 4% Lidocaine 5% Lidocaine 4% Lidocaine Solution Gel Solution 3-ABDOMEN SUPERIOR -Current Size (cm) - Length 5 5.3 4.6 -Current Size (cm) - Width 5 3.8 5.0 -Current Size (cm) - Depth 1 0.2 0.9 -Total Square Cm 25 20.14 23.00 -Date of Last Picture (Recall this 10/31/23 field) -Photo Taken No -Tunneling Position (O'clock) 5 -Tunneling Distance (cm) 1.1 -Undermining/Tunneling Yes No -Undermining/Tunneling Starts (O'clock 2 ) -Undermining/Tunneling Ends (O'clock) 2 -Maximum Distance (cm) 1 -Circular Undermining No -Classification - Thickness Partial Thickness -Exudate Amt Small Medium -Exudate Type Serosanguineous Serosanguineous -Wound Margin Flat & Intact Distinct, Distinct, Outline Outline Attached Attached -Granulation Amt Large (67-100%) Large (67-100%) Large (67-100%) -Granulation Quality [place],Red Red -Slough/Fibrin No -Necrosis Amt Small (1-33%) -Necrotic Tissue Type Adherent Slough -Structure Exposed N/A -Texture (Matilde-wound Skin Appearance) No Abnormality, Scarring,Rash Assessed -Moisture (Matilde-wound Skin Appearance) No Abnormality No Abnormality -Color (Matilde-wound Skin Appearance) No Abnormality No Abnormality -Temperature (Matilde-wound Skin No Abnormality No Abnormality No Abnormality Appearance) (Pt Warm) (Pt Warm) (Pt Warm) -Tenderness on Palpation (Matilde-wound No No No Skin Appearance) -Ulcer Cleansing Soap and Water Soap and Water Soap and Water -Foul Odor after Cleansing No -Anesthetic Used 4% Lidocaine 5% Lidocaine 4% Lidocaine Solution Gel Solution WC - Nurse 2 - General Ulcer CM Notes Start: 10/31/23 08:48 Freq: Status: Active Protocol: Activity Type Activity Date Activity User E-sign Co-sign Detail Recorded Client Recorded Date Recorded By Document 10/31/23 09:18 DS [id number] 10/31/23 09:32 DS Document 11/07/23 09:21 GM [id number] 11/07/23 09:27 GM Edit Result 11/07/23 09:21 GM (1) [id number] 11/07/23 10:09 GM Document 11/14/23 09:03 GM [id number] 11/14/23 09:19 GM (1) 4-ABDOMEN INFERIOR- CLUSTER - Tunneling No => - Undermining/Tunneling No => - Circular Undermining No => 3-ABDOMEN SUPERIOR - Tunneling No => - Undermining/Tunneling No => - Circular Undermining No => 10/31/23 11/07/23 11/14/23 09:18 09:21 09:03 Wound Center Nurse 2 #5 superpubic -Time 09:18 -Correct Patient Yes -Correct Side, Site, Position Yes -Correct Procedure Yes -Procedure Performed Yes -Type of Procedure Debridement -Clinical Debridement Subcutaneous -Tissue Removed Subcutaneous -Tunneling No -Undermining/Tunneling No -Circular Undermining No -Wound/Ulcer Outcome Not Healed -Ulcer Cleansing Rinsed/ Irrigated with Saline -Bioengineered Tissue No -Bleeding Controlled with Pressure -Treatment Response Procedure Tolerated Well #6 lateral inferior abd -Time 09:06 -Correct Patient Yes -Correct Side, Site, Position Yes -Correct Procedure Yes -Procedure Performed Yes -Type of Procedure Debridement -Clinical Debridement Subcutaneous -Tissue Removed Subcutaneous -Post Debridement (cm) - Length 0.4 -Post Debridement (cm) - Width 1.1 -Post Debridement (cm) - Depth 0.2 -Total Square (Post) (cm) 0.44 -Area of Debridement (cm) - Length 0.4 -Area of Debridement (cm) - Width 1.1 -Total Square (Area) (cm) 0.44 -Tunneling No -Undermining/Tunneling Yes -Undermining/Tunneling Starts (O'clock 3 ) -Undermining/Tunneling Ends (O'clock) 4 -Maximum Distance (cm) 3.0 -Wound/Ulcer Outcome Not Healed -Ulcer Cleansing Rinsed/ Irrigated with Saline -Foul Odor after Cleansing No -Bioengineered Tissue No -Bleeding Controlled with Pressure -Treatment Response Procedure Tolerated Well -Debridement - Subq, 1st 20sq cm No 4-ABDOMEN INFERIOR- CLUSTER -Time 09:19 09:21 09:07 -Correct Patient Yes Yes Yes -Correct Side, Site, Position Yes Yes Yes -Correct Procedure Yes Yes Yes -Procedure Performed Yes Yes Yes -Type of Procedure Debridement Debridement Debridement -Clinical Debridement Subcutaneous Subcutaneous Subcutaneous -Tissue Removed Subcutaneous Subcutaneous Subcutaneous -Post Debridement (cm) - Length 6.1 6.2 6.0 -Post Debridement (cm) - Width 3.5 3.4 3.5 -Post Debridement (cm) - Depth 1.7 0.6 0.2 -Total Square (Post) (cm) 21.35 21.08 21.00 -Area of Debridement (cm) - Length 6.1 6.2 6.0 -Area of Debridement (cm) - Width 3.5 3.4 3.5 -Total Square (Area) (cm) 21.35 21.08 21.00 -Tunneling Yes No -Tunneling Position (O'clock) 2 -Tunneling Distance (cm) 1.5 -Undermining/Tunneling No No -Circular Undermining No No -Wound/Ulcer Outcome Not Healed Not Healed Not Healed -Ulcer Cleansing Rinsed/ Rinsed/ Rinsed/ Irrigated with Irrigated with Irrigated with Saline Saline Saline -Foul Odor after Cleansing No No -Bioengineered Tissue No No No -Bleeding Controlled with Pressure Pressure Pressure -Treatment Response Procedure Procedure Procedure Tolerated Well Tolerated Well Tolerated Well -Debridement - Subq, 1st 20sq cm Yes No No -Debridement, SubQ, ea addt'l 20sq cm 2 or part thereof 3-ABDOMEN SUPERIOR -Time 09:19 09:21 09:07 -Correct Patient Yes Yes Yes -Correct Side, Site, Position Yes Yes Yes -Correct Procedure Yes Yes Yes -Procedure Performed Yes Yes Yes -Type of Procedure Debridement Debridement Debridement -Clinical Debridement Subcutaneous Subcutaneous Subcutaneous -Tissue Removed Subcutaneous Subcutaneous Subcutaneous -Post Debridement (cm) - Length 5 5.0 5.0 -Post Debridement (cm) - Width 4.7 4.4 5.0 -Post Debridement (cm) - Depth 1.8 1.2 1.2 -Total Square (Post) (cm) 23.5 22.00 25.00 -Area of Debridement (cm) - Length 5.0 5.0 5.0 -Area of Debridement (cm) - Width 4.7 4.4 5.0 -Total Square (Area) (cm) 23.50 22.00 25.00 -Tunneling No No -Undermining/Tunneling Yes No -Undermining/Tunneling Starts (O'clock 3 ) -Undermining/Tunneling Ends (O'clock) 5 -Maximum Distance (cm) 1.8 -Circular Undermining No No -Wound/Ulcer Outcome Not Healed Not Healed Not Healed -Ulcer Cleansing Rinsed/ Rinsed/ Rinsed/ Irrigated with Irrigated with Irrigated with Saline Saline Saline -Foul Odor after Cleansing No No -Bioengineered Tissue No No No -Bleeding Controlled with Pressure Pressure Pressure -Treatment Response Procedure Procedure Procedure Tolerated Well Tolerated Well Tolerated Well -Debridement - Subq, 1st 20sq cm No Yes Yes -Debridement, SubQ, ea addt'l 20sq cm 2 2 or part thereof Pain Scale: 0-10 Numeric Is Patient Pain Free? Yes Yes Yes - Nurse 3 - General Ulcer D/C NN Start: 10/31/23 08:48 Freq: Status: Active Protocol: Activity Type Activity Date Activity User E-sign Co-sign Detail Recorded Client Recorded Date Recorded By Document 10/31/23 10:07 KW [id number] 10/31/23 10:10 KW Document 11/07/23 09:46 KW [id number] 11/07/23 09:47 KW 10/31/23 11/07/23 10:07 09:46 Wound Care Center Nurse 3 4-ABDOMEN INFERIOR- CLUSTER -Negative Pressure Wound Therapy Continue -Setting (mmHg) 150 -Negative Pressure is Continuous -Primary Dressing Applied Aquacel Extra -Primary Dressing Covered/Secured with Dry Gauze, Secured with Tape -NPWT Application Charge NPWT & Debridement (nc ) -Aquacel Extra 1 3-ABDOMEN SUPERIOR -Negative Pressure Wound Therapy Continue -Setting (mmHg) 150 -Negative Pressure is Continuous -Other Dressing AQUACEL EXTRA -Primary Dressing Covered/Secured with Dry Gauze, Secured with Tape -NPWT Application Charge NPWT - Multiple Locations Pain Scale: 0-10 Numeric Is Patient Pain Free? Yes Yes - Visit Discharge Discharge Condition Stable Ambulatory Status Ambulatory Transportation Private Auto Medication Reconcilliation completed & No provided to patient/care provider Clinical Summary of Care Provided Yes Additional Wound Wound debrided: Abdomen (inferior) Type of Debridement: Excisional debridement Anesthesia Used: 4% Lidocaine Solution Depth: Down to and including healthy tissue and in the subcutaneous layer Percentage of wound debrided: 100 Instrument Used: 5mm curette Tissue Removed: Slough and devitalized tissue Severity: Fat Layer Exposed Amount of bleeding with debridement: Mild Bleeding Controlled with: Pressure Patient tolerated procedure: Patient tolerated procedure well Additional Wound Wound debrided: Abdomen (inferior lateral) Laterality: Right Type of Debridement: Excisional debridement Anesthesia Used: 4% Lidocaine Solution Depth: Down to and including healthy tissue and in the subcutaneous layer Percentage of wound debrided: 100 Instrument Used: 3mm curette Tissue Removed: Devitalized tissue Severity: Fat Layer Exposed Amount of bleeding with debridement: Mild Bleeding Controlled with: Pressure Patient tolerated procedure: Patient tolerated procedure well Assessment/Plan Assessment/Plan (1) Non-healing surgical wound: CODE(S): T81.89XA - Other complications of procedures, not elsewhere classified, initial encounter QUALIFIERS: Encounter type: initial encounter Qualified Code(s): T81.89XA - Other complications of procedures, not elsewhere classified, initial encounter (2) Type 2 diabetes mellitus: CODE(S): E11.9 - Type 2 diabetes mellitus without complications (3) History of colostomy reversal: CODE(S): Z98.890 - Other specified postprocedural states (4) Surgical wound breakdown: CODE(S): T81.31XA - Disruption of external operation (surgical) wound, not elsewhere classified, initial encounter PLAN: Plan Debridement done as documented above, procedure was well-tolerated. New area of breakdown lateral to the inferior ulcer. Initial area of breakdown around inferior ulcer has morphed into 1 with good improvement. Again he had no pain or swelling in the area, just noted this morning while taking a shower. Noted drainage and an opening. Was seen by his surgeon earlier in the week and no concerns reported. I believe that he would benefit from imaging/possibly evaluating for a fistula. Will take 1 more week of VAC holiday however, if tunneling/depth to the inferior lateral ulcer does not improve will resume VAC. Continue 30 minutes Dakin's soak and apply Aquacel extra. Cover with foam dressing. Continue optimal diabetes control and dietary protein intake. Most recent A1c said to be 6.3. Continue other chronic wound care management. His questions were answered and he was advised to let us know if he has any further questions or concerns. Follow-up in 1 week. This note was generated with iDone[employer] dictation software. It may contain incorrect words, spelling, and punctuation that were not noted in checking the note before signing.
--- NOTE | 2023-11-15 08:48 | WC ---
PHOTO 11/14/23 RIGHT LATERAL INFER ABD
[2023-11-21 08:48] VITALS: BP 150/71; PULSE 84; RESP 18; TEMP 36.4; BMI 36.9
--- NOTE | 2023-11-21 09:33 | PCM.WC.PN ---
History of Present Illness Date of Service: 11/21/23 Chief Complaint: Non healing surgical wound History of Wound: Mr. Duque is a 62 yo well-known to me. Last seen here over a month ago. He had been discharged due to plan for closure following colostomy reversal. Surgery was uneventful however, less than a week after surgery, he states that his wound breakdown/dehisced. Initially applied Dakin's dressing but subsequently, started a wound VAC. Since starting wound VAC, he states that there has been much better improvement. Currently set at 150 mmHg. History of diabetes mellitus which is well-controlled. He reports good protein intake. He feels well and denies any acute concerns at this time. Progress of Wound: No new concerns reported at this time. New area of opening noted last week with some improvement. He denies any significant drainage from the area. Prior areas also with some improvement. He feels well. Objective Data Objective Data Vital Signs: Vital Signs Temp Pulse Resp BP O2 Del Method 97.6 F L 84 18 150/71 H Room Air 11/21/23 08:48 11/21/23 08:48 11/21/23 08:48 11/21/23 08:48 11/21/23 08:48 Oxygen Delivery Method Room Air Weight: 250 lb Body Mass Index (BMI) 36.9 Charges/Coding Procedures Integumentary 111xxx-113xx: 33332 Hannah subq tissue 20 sq cm/< Add On Codes: 22793 Hannah subq tissue add-on (x2. Additional square centimeter debrided, please refer to clinical note.) Physical Exam Const alert, oriented x3 and no apparent distress General Appearance: cooperative, comfortable and well kempt HEENT normocephalic, head/scalp atraumatic and hearing grossly normal bilaterally Eyes EOMs intact bilaterally General Eye: normal appearance of both eyes Neck full ROM and supple General: normal visual inspection Resp normal respiratory effort Effort and Inspection: able to speak in complete sentences GI non-tender and non-distended Skin Wounds: wounds noted size Size: See clinical note, bed granulating well, margins well approximated, no odor and open Neuro oriented x3, CN's II-XII intact bilaterally, moves all extremities and no focal motor deficits Psych mental status grossly normal, thought process normal and cooperative Debridement Note Debridement Note Wound debrided: Abdomen (superior) Type of Debridement: Excisional debridement Anesthesia Used: 4% Lidocaine Solution Depth: Down to and including healthy tissue Percentage of wound debrided: 100 Instrument Used: 5mm curette Tissue Removed: Slough and devitalized tissue Severity: Fat Layer Exposed Amount of bleeding with debridement: Mild Bleeding Controlled with: Pressure Patient tolerated procedure: Patient tolerated procedure well Post-Debridement Measurements and Additional Note: Post-Debridement Measurements/Treatment - Nurse 1 - General Ulcer Assessment Start: 10/31/23 08:48 Freq: Status: Active Protocol: JUSTIN Activity Type Activity Date Activity User E-sign Co-sign Detail Recorded Client Recorded Date Recorded By Document 10/31/23 08:48 CP [id number] 10/31/23 09:04 CP Document 11/07/23 08:32 DL [id number] 11/07/23 08:41 DL Document 11/14/23 08:31 DS [id number] 11/14/23 08:32 DS Document 11/21/23 08:48 KW [id number] 11/21/23 09:04 KW 10/31/23 11/07/23 11/14/23 08:48 08:32 08:31 - Today's Visit Information Type of service Follow-up Visit Follow-up Visit Follow-up Visit (Physician/[employer] (Physician/[employer]ENDING SERVICE (Physician/[employer]ENDING [employer]ICE ) ) ) Arrival Mode Ambulatory Ambulatory Ambulatory Transfer Assistance None Accompanied by Patient Identification Verified (Name & Yes Yes ) Patient Requires Transmission-Based No No Precautions Safety Precautions Fall Prevention Height and Weight Body Mass Index (BMI) 36.9 36.9 36.9 BMI Classification Obese Obese Obese Vital Signs Temperature (97.8 F-99.1 F) 96.6 F L 97 F L 97.1 F L Temperature Source Temporal Temporal Temporal Pulse Rate (60-100) 90 87 100 Pulse Location Monitor Monitor Monitor Respiratory Rate (12-18) 16 18 18 Respiratory rate source Observation Observation Observation Oxygen Delivery Method Room Air Blood Pressure (90/60-120/80) 160/79 H 145/83 H 138/84 H Blood Pressure Mean (mm Hg) 106 103 102 Source Monitor Monitor Position Sitting Blood Pressure Location Left Arm History Since Last Visit- (Skip if this is Patient's initial visit) Have you changed medications since your Yes No No last visit? Any new allergies or adverse reactions No No No Had a fall/change in ADL's that may No No No increase risk of falls Signs or symptoms of abuse and/or No No No neglect since last visit Have you been in the hospital since your No No No last visit? Has dressing in place as prescribed Yes Yes Yes Has compression in place as prescribed N/A N/A N/A Has offloadiing in place as prescribed N/A N/A N/A Experienced any changes in pain level or No No management Left Footwear Regular Shoe Right Footwear Regular Shoe Pain Scale: 0-10 Numeric Is Patient Pain Free? Yes Yes Yes Teaching Assessment Does Patient Smoke tobacco or other No substances Smoking Status Never smoker 11/21/23 08:48 - Today's Visit Information Type of service Follow-up Visit (Physician/[facility]ICE ) Arrival Mode Ambulatory Transfer Assistance Accompanied by Patient Identification Verified (Name & Yes ) Patient Requires Transmission-Based Precautions Safety Precautions Height and Weight Body Mass Index (BMI) 36.9 BMI Classification Obese Vital Signs Temperature (97.8 F-99.1 F) 97.6 F L Temperature Source Temporal Pulse Rate (60-100) 84 Pulse Location Monitor Respiratory Rate (12-18) 18 Respiratory rate source Observation Oxygen Delivery Method Room Air Blood Pressure (90/60-120/80) 150/71 H Blood Pressure Mean (mm Hg) 97 Source Monitor Position Sitting Blood Pressure Location Left Arm History Since Last Visit- (Skip if this is Patient's initial visit) Have you changed medications since your No last visit? Any new allergies or adverse reactions No Had a fall/change in ADL's that may No increase risk of falls Signs or symptoms of abuse and/or No neglect since last visit Have you been in the hospital since your No last visit? Has dressing in place as prescribed Yes Has compression in place as prescribed N/A Has offloadiing in place as prescribed N/A Experienced any changes in pain level or No management Left Footwear Regular Shoe Right Footwear Regular Shoe Pain Scale: 0-10 Numeric Is Patient Pain Free? Yes Teaching Assessment Does Patient Smoke tobacco or other substances Smoking Status - Nurse 1 - General Ulcer Measurement Start: 10/31/23 08:48 Freq: Status: Active Protocol: Activity Type Activity Date Activity User E-sign Co-sign Detail Recorded Client Recorded Date Recorded By Document 10/31/23 08:48 CP [id number] 10/31/23 09:04 CP Document 09/12/24 08:32 DL [id number] 11/07/23 08:41 DL Document 11/14/23 08:32 DS [id number] 11/14/23 08:51 DS Document 11/21/23 08:48 KW [id number] 11/21/23 09:04 KW 10/31/23 11/07/23 11/14/23 08:48 08:32 08:32 Wound Center Nurse 1 #5 superpubic -Current Size (cm) - Length 0.5 -Current Size (cm) - Width 0.4 -Current Size (cm) - Depth 1.5 -Total Square Cm 0.20 -Photo Taken Yes -Epithelialization None Present -Exudate Amt Small -Exudate Type Serosanguineous -Wound Margin Flat & Intact -Granulation Amt Large (67-100%) -Granulation Quality Red -Slough/Fibrin No -Texture (Matilde-wound Skin Appearance) No Abnormality -Moisture (Matilde-wound Skin Appearance) No Abnormality -Color (Matilde-wound Skin Appearance) No Abnormality -Temperature (Matilde-wound Skin No Abnormality Appearance) (Pt Warm) -Tenderness on Palpation (Matilde-wound No Skin Appearance) -Ulcer Cleansing Soap and Water -Anesthetic Used 4% Lidocaine Solution #6 lateral inferior abd -Combined with other wound No -Current Size (cm) - Length 0.3 -Current Size (cm) - Width 0.7 -Current Size (cm) - Depth 0.3 -Total Square Cm 0.21 -Undermining/Tunneling Yes -Undermining/Tunneling Starts (O'clock 6 ) -Undermining/Tunneling Ends (O'clock) 10 -Maximum Distance (cm) 3.0 -Classification - Thickness Partial Thickness -Exudate Type Serosanguineous -Wound Margin Distinct, Outline Attached -Texture (Matilde-wound Skin Appearance) Assessed -Moisture (Matilde-wound Skin Appearance) Assessed -Color (Matilde-wound Skin Appearance) Assessed -Temperature (Matilde-wound Skin No Abnormality Appearance) (Pt Warm) -Tenderness on Palpation (Matilde-wound No Skin Appearance) -Ulcer Cleansing Soap and Water -Anesthetic Used 4% Lidocaine Solution 4-ABDOMEN INFERIOR- CLUSTER -Current Size (cm) - Length 6.2 0.6 3.5 -Current Size (cm) - Width 4.3 3 6.1 -Current Size (cm) - Depth 0.5 0.2 0.5 -Total Square Cm 26.66 1.8 21.35 -Date of Last Picture (Recall this 10/31/23 field) -Photo Taken No -Classification - Thickness Partial Thickness -Exudate Amt Small Medium -Exudate Type Serosanguineous Serosanguineous -Wound Margin Flat & Intact Distinct, Outline Attached -Granulation Amt Large (67-100%) Large (67-100%) Large (67-100%) -Granulation Quality [place] Red -Slough/Fibrin No -Necrosis Amt Small (1-33%) -Necrotic Tissue Type Adherent Slough -Structure Exposed N/A N/A -Texture (Matilde-wound Skin Appearance) No Abnormality Scarring,Rash Assessed -Moisture (Matilde-wound Skin Appearance) No Abnormality No Abnormality Assessed -Color (Matilde-wound Skin Appearance) No Abnormality No Abnormality Assessed -Temperature (Matilde-wound Skin No Abnormality No Abnormality No Abnormality Appearance) (Pt Warm) (Pt Warm) (Pt Warm) -Tenderness on Palpation (Matilde-wound No No No Skin Appearance) -Ulcer Cleansing Soap and Water Soap and Water Soap and Water -Foul Odor after Cleansing No No -Anesthetic Used 4% Lidocaine 5% Lidocaine 4% Lidocaine Solution Gel Solution 3-ABDOMEN SUPERIOR -Current Size (cm) - Length 5 5.3 4.6 -Current Size (cm) - Width 5 3.8 5.0 -Current Size (cm) - Depth 1 0.2 0.9 -Total Square Cm 25 20.14 23.00 -Date of Last Picture (Recall this 10/31/23 field) -Photo Taken No -Tunneling Position (O'clock) 5 -Tunneling Distance (cm) 1.1 -Undermining/Tunneling Yes No -Undermining/Tunneling Starts (O'clock 2 ) -Undermining/Tunneling Ends (O'clock) 2 -Maximum Distance (cm) 1 -Circular Undermining No -Classification - Thickness Partial Thickness -Exudate Amt Small Medium -Exudate Type Serosanguineous Serosanguineous -Wound Margin Flat & Intact Distinct, Distinct, Outline Outline Attached Attached -Granulation Amt Large (67-100%) Large (67-100%) Large (67-100%) -Granulation Quality [place],Red Red -Slough/Fibrin No -Necrosis Amt Small (1-33%) -Necrotic Tissue Type Adherent Slough -Structure Exposed N/A -Texture (Matilde-wound Skin Appearance) No Abnormality, Scarring,Rash Assessed -Moisture (Matilde-wound Skin Appearance) No Abnormality No Abnormality -Color (Matilde-wound Skin Appearance) No Abnormality No Abnormality -Temperature (Matilde-wound Skin No Abnormality No Abnormality No Abnormality Appearance) (Pt Warm) (Pt Warm) (Pt Warm) -Tenderness on Palpation (Matilde-wound No No No Skin Appearance) -Ulcer Cleansing Soap and Water Soap and Water Soap and Water -Foul Odor after Cleansing No -Anesthetic Used 4% Lidocaine 5% Lidocaine 4% Lidocaine Solution Gel Solution 11/21/23 08:48 Wound Center Nurse 1 #5 superpubic -Current Size (cm) - Length -Current Size (cm) - Width -Current Size (cm) - Depth -Total Square Cm -Photo Taken -Epithelialization -Exudate Amt -Exudate Type -Wound Margin -Granulation Amt -Granulation Quality -Slough/Fibrin -Texture (Matilde-wound Skin Appearance) -Moisture (Matilde-wound Skin Appearance) -Color (Matilde-wound Skin Appearance) -Temperature (Matilde-wound Skin Appearance) -Tenderness on Palpation (Matilde-wound Skin Appearance) -Ulcer Cleansing -Anesthetic Used #6 lateral inferior abd -Combined with other wound -Current Size (cm) - Length -Current Size (cm) - Width -Current Size (cm) - Depth -Total Square Cm -Undermining/Tunneling -Undermining/Tunneling Starts (O'clock ) -Undermining/Tunneling Ends (O'clock) -Maximum Distance (cm) -Classification - Thickness -Exudate Type -Wound Margin -Texture (Matilde-wound Skin Appearance) -Moisture (Matilde-wound Skin Appearance) -Color (Matilde-wound Skin Appearance) -Temperature (Matilde-wound Skin Appearance) -Tenderness on Palpation (Matilde-wound Skin Appearance) -Ulcer Cleansing -Anesthetic Used 4-ABDOMEN INFERIOR- CLUSTER -Current Size (cm) - Length 6 -Current Size (cm) - Width 3.5 -Current Size (cm) - Depth 1.5 -Total Square Cm 21.0 -Date of Last Picture (Recall this field) -Photo Taken -Classification - Thickness -Exudate Amt Medium -Exudate Type Serosanguineous -Wound Margin Distinct, Outline Attached -Granulation Amt Large (67-100%) -Granulation Quality Red -Slough/Fibrin -Necrosis Amt -Necrotic Tissue Type -Structure Exposed -Texture (Matilde-wound Skin Appearance) Assessed -Moisture (Matilde-wound Skin Appearance) Assessed -Color (Matilde-wound Skin Appearance) Assessed -Temperature (Matilde-wound Skin No Abnormality Appearance) (Pt Warm) -Tenderness on Palpation (Matilde-wound No Skin Appearance) -Ulcer Cleansing Soap and Water -Foul Odor after Cleansing No -Anesthetic Used 4% Lidocaine Solution,5% Lidocaine Gel 3-ABDOMEN SUPERIOR -Current Size (cm) - Length 4.4 -Current Size (cm) - Width 3.8 -Current Size (cm) - Depth 0.8 -Total Square Cm 16.72 -Date of Last Picture (Recall this field) -Photo Taken -Tunneling Position (O'clock) -Tunneling Distance (cm) -Undermining/Tunneling -Undermining/Tunneling Starts (O'clock ) -Undermining/Tunneling Ends (O'clock) -Maximum Distance (cm) -Circular Undermining -Classification - Thickness -Exudate Amt Medium -Exudate Type Serosanguineous -Wound Margin Distinct, Outline Attached -Granulation Amt Large (67-100%) -Granulation Quality Red -Slough/Fibrin -Necrosis Amt -Necrotic Tissue Type -Structure Exposed -Texture (Matilde-wound Skin Appearance) Assessed -Moisture (Matilde-wound Skin Appearance) Assessed -Color (Matilde-wound Skin Appearance) Assessed -Temperature (Matilde-wound Skin No Abnormality Appearance) (Pt Warm) -Tenderness on Palpation (Matilde-wound No Skin Appearance) -Ulcer Cleansing Soap and Water -Foul Odor after Cleansing No -Anesthetic Used 5% Lidocaine Gel WC - Nurse 2 - General Ulcer CM Notes Start: 10/31/23 08:48 Freq: Status: Active Protocol: Activity Type Activity Date Activity User E-sign Co-sign Detail Recorded Client Recorded Date Recorded By Document 10/31/23 09:18 DS [id number] 10/31/23 09:32 DS Document 11/07/23 09:21 GM [id number] 11/07/23 09:27 GM Edit Result 11/07/23 09:21 GM (1) [id number] 11/07/23 10:09 GM Document 11/14/23 09:03 GM [id number] 11/14/23 09:19 GM Document 11/21/23 09:15 GM [id number] 11/21/23 09:30 GM (1) 4-ABDOMEN INFERIOR- CLUSTER - Tunneling No => - Undermining/Tunneling No => - Circular Undermining No => 3-ABDOMEN SUPERIOR - Tunneling No => - Undermining/Tunneling No => - Circular Undermining No => 10/31/23 11/07/23 11/14/23 09:18 09:21 09:03 Wound Center Nurse 2 #5 superpubic -Time 09:18 -Correct Patient Yes -Correct Side, Site, Position Yes -Correct Procedure Yes -Procedure Performed Yes -Type of Procedure Debridement -Clinical Debridement Subcutaneous -Tissue Removed Subcutaneous -Tunneling No -Undermining/Tunneling No -Circular Undermining No -Wound/Ulcer Outcome Not Healed -Ulcer Cleansing Rinsed/ Irrigated with Saline -Bioengineered Tissue No -Bleeding Controlled with Pressure -Treatment Response Procedure Tolerated Well #6 lateral inferior abd -Time 09:06 -Correct Patient Yes -Correct Side, Site, Position Yes -Correct Procedure Yes -Procedure Performed Yes -Type of Procedure Debridement -Clinical Debridement Subcutaneous -Tissue Removed Subcutaneous -Post Debridement (cm) - Length 0.4 -Post Debridement (cm) - Width 1.1 -Post Debridement (cm) - Depth 0.2 -Total Square (Post) (cm) 0.44 -Area of Debridement (cm) - Length 0.4 -Area of Debridement (cm) - Width 1.1 -Total Square (Area) (cm) 0.44 -Tunneling No -Undermining/Tunneling Yes -Undermining/Tunneling Starts (O'clock 3 ) -Undermining/Tunneling Ends (O'clock) 4 -Maximum Distance (cm) 3.0 -Circular Undermining -Wound/Ulcer Outcome Not Healed -Ulcer Cleansing Rinsed/ Irrigated with Saline -Foul Odor after Cleansing No -Bioengineered Tissue No -Bleeding Controlled with Pressure -Treatment Response Procedure Tolerated Well -Debridement - Subq, 1st 20sq cm No -Debridement, SubQ, ea addt'l 20sq cm or part thereof 4-ABDOMEN INFERIOR- CLUSTER -Time 09:19 09:21 09:07 -Correct Patient Yes Yes Yes -Correct Side, Site, Position Yes Yes Yes -Correct Procedure Yes Yes Yes -Procedure Performed Yes Yes Yes -Type of Procedure Debridement Debridement Debridement -Clinical Debridement Subcutaneous Subcutaneous Subcutaneous -Tissue Removed Subcutaneous Subcutaneous Subcutaneous -Post Debridement (cm) - Length 6.1 6.2 6.0 -Post Debridement (cm) - Width 3.5 3.4 3.5 -Post Debridement (cm) - Depth 1.7 0.6 0.2 -Total Square (Post) (cm) 21.35 21.08 21.00 -Area of Debridement (cm) - Length 6.1 6.2 6.0 -Area of Debridement (cm) - Width 3.5 3.4 3.5 -Total Square (Area) (cm) 21.35 21.08 21.00 -Tunneling Yes No -Tunneling Position (O'clock) 2 -Tunneling Distance (cm) 1.5 -Undermining/Tunneling No No -Circular Undermining No No -Wound/Ulcer Outcome Not Healed Not Healed Not Healed -Ulcer Cleansing Rinsed/ Rinsed/ Rinsed/ Irrigated with Irrigated with Irrigated with Saline Saline Saline -Foul Odor after Cleansing No No -Bioengineered Tissue No No No -Bleeding Controlled with Pressure Pressure Pressure -Treatment Response Procedure Procedure Procedure Tolerated Well Tolerated Well Tolerated Well -Debridement - Subq, 1st 20sq cm Yes No No -Debridement, SubQ, ea addt'l 20sq cm 2 or part thereof 3-ABDOMEN SUPERIOR -Time 09:19 09:21 09:07 -Correct Patient Yes Yes Yes -Correct Side, Site, Position Yes Yes Yes -Correct Procedure Yes Yes Yes -Procedure Performed Yes Yes Yes -Type of Procedure Debridement Debridement Debridement -Clinical Debridement Subcutaneous Subcutaneous Subcutaneous -Tissue Removed Subcutaneous Subcutaneous Subcutaneous -Post Debridement (cm) - Length 5 5.0 5.0 -Post Debridement (cm) - Width 4.7 4.4 5.0 -Post Debridement (cm) - Depth 1.8 1.2 1.2 -Total Square (Post) (cm) 23.5 22.00 25.00 -Area of Debridement (cm) - Length 5.0 5.0 5.0 -Area of Debridement (cm) - Width 4.7 4.4 5.0 -Total Square (Area) (cm) 23.50 22.00 25.00 -Tunneling No No -Undermining/Tunneling Yes No -Undermining/Tunneling Starts (O'clock 3 ) -Undermining/Tunneling Ends (O'clock) 5 -Maximum Distance (cm) 1.8 -Circular Undermining No No -Wound/Ulcer Outcome Not Healed Not Healed Not Healed -Ulcer Cleansing Rinsed/ Rinsed/ Rinsed/ Irrigated with Irrigated with Irrigated with Saline Saline Saline -Foul Odor after Cleansing No No -Bioengineered Tissue No No No -Bleeding Controlled with Pressure Pressure Pressure -Treatment Response Procedure Procedure Procedure Tolerated Well Tolerated Well Tolerated Well -Debridement - Subq, 1st 20sq cm No Yes Yes -Debridement, SubQ, ea addt'l 20sq cm 2 2 or part thereof Pain Scale: 0-10 Numeric Is Patient Pain Free? Yes Yes Yes 11/21/23 09:15 Wound Center Nurse 2 #5 superpubic -Time -Correct Patient -Correct Side, Site, Position -Correct Procedure -Procedure Performed -Type of Procedure -Clinical Debridement -Tissue Removed -Tunneling -Undermining/Tunneling -Circular Undermining -Wound/Ulcer Outcome -Ulcer Cleansing -Bioengineered Tissue -Bleeding Controlled with -Treatment Response #6 lateral inferior abd -Time 09:30 -Correct Patient Yes -Correct Side, Site, Position Yes -Correct Procedure Yes -Procedure Performed Yes -Type of Procedure Debridement -Clinical Debridement Subcutaneous -Tissue Removed Subcutaneous -Post Debridement (cm) - Length 0.4 -Post Debridement (cm) - Width 0.8 -Post Debridement (cm) - Depth 2.6 -Total Square (Post) (cm) 0.32 -Area of Debridement (cm) - Length 0.4 -Area of Debridement (cm) - Width 0.8 -Total Square (Area) (cm) 0.32 -Tunneling No -Undermining/Tunneling No -Undermining/Tunneling Starts (O'clock ) -Undermining/Tunneling Ends (O'clock) -Maximum Distance (cm) -Circular Undermining No -Wound/Ulcer Outcome Not Healed -Ulcer Cleansing Rinsed/ Irrigated with Saline -Foul Odor after Cleansing No -Bioengineered Tissue No -Bleeding Controlled with Pressure -Treatment Response Procedure Tolerated Well -Debridement - Subq, 1st 20sq cm Yes -Debridement, SubQ, ea addt'l 20sq cm 1 or part thereof 4-ABDOMEN INFERIOR- CLUSTER -Time 09:15 -Correct Patient Yes -Correct Side, Site, Position Yes -Correct Procedure Yes -Procedure Performed Yes -Type of Procedure Debridement -Clinical Debridement Subcutaneous -Tissue Removed Subcutaneous -Post Debridement (cm) - Length 5.6 -Post Debridement (cm) - Width 3.3 -Post Debridement (cm) - Depth 0.2 -Total Square (Post) (cm) 18.48 -Area of Debridement (cm) - Length 5.6 -Area of Debridement (cm) - Width 3.3 -Total Square (Area) (cm) 18.48 -Tunneling No -Tunneling Position (O'clock) -Tunneling Distance (cm) -Undermining/Tunneling No -Circular Undermining No -Wound/Ulcer Outcome Not Healed -Ulcer Cleansing Rinsed/ Irrigated with Saline -Foul Odor after Cleansing No -Bioengineered Tissue No -Bleeding Controlled with Pressure -Treatment Response Procedure Tolerated Well -Debridement - Subq, 1st 20sq cm No -Debridement, SubQ, ea addt'l 20sq cm or part thereof 3-ABDOMEN SUPERIOR -Time 09:16 -Correct Patient Yes -Correct Side, Site, Position Yes -Correct Procedure Yes -Procedure Performed Yes -Type of Procedure Debridement -Clinical Debridement Subcutaneous -Tissue Removed Subcutaneous -Post Debridement (cm) - Length 4.5 -Post Debridement (cm) - Width 4.0 -Post Debridement (cm) - Depth 0.8 -Total Square (Post) (cm) 18.00 -Area of Debridement (cm) - Length 4.5 -Area of Debridement (cm) - Width 4.0 -Total Square (Area) (cm) 18.00 -Tunneling No -Undermining/Tunneling No -Undermining/Tunneling Starts (O'clock ) -Undermining/Tunneling Ends (O'clock) -Maximum Distance (cm) -Circular Undermining No -Wound/Ulcer Outcome Not Healed -Ulcer Cleansing Rinsed/ Irrigated with Saline -Foul Odor after Cleansing No -Bioengineered Tissue No -Bleeding Controlled with Calcium Alginate -Treatment Response Procedure Tolerated Well -Debridement - Subq, 1st 20sq cm No -Debridement, SubQ, ea addt'l 20sq cm or part thereof Pain Scale: 0-10 Numeric Is Patient Pain Free? Yes WC - Nurse 3 - General Ulcer D/C NN Start: 10/31/23 08:48 Freq: Status: Active Protocol: Activity Type Activity Date Activity User E-sign Co-sign Detail Recorded Client Recorded Date Recorded By Document 09/05/24 10:07 KW [id number] 10/31/23 10:10 KW Document 11/07/23 09:46 KW [id number] 11/07/23 09:47 KW Document 11/14/23 09:48 KW [id number] 11/14/23 09:50 KW 10/31/23 11/07/23 11/14/23 10:07 09:46 09:48 Wound Care Center Nurse 3 #6 lateral inferior abd -Primary Dressing Applied Aquacel Extra -Primary Dressing Covered/Secured with Dry Gauze, Secured with Tape -Aquacel Extra 1 4-ABDOMEN INFERIOR- CLUSTER -Negative Pressure Wound Therapy Continue -Setting (mmHg) 150 -Negative Pressure is Continuous -Primary Dressing Applied Aquacel Extra -Other Dressing aquacel extra -Primary Dressing Covered/Secured with Dry Gauze, Dry Gauze Secured with Tape -NPWT Application Charge NPWT & Debridement (nc ) -Aquacel Extra 1 3-ABDOMEN SUPERIOR -Negative Pressure Wound Therapy Continue -Setting (mmHg) 150 -Negative Pressure is Continuous -Other Dressing AQUACEL EXTRA aquacel extra -Primary Dressing Covered/Secured with Dry Gauze, Dry Gauze Secured with Tape -NPWT Application Charge NPWT - Multiple Locations Pain Scale: 0-10 Numeric Is Patient Pain Free? Yes Yes Yes WC - Visit Discharge Discharge Condition Stable Ambulatory Status Ambulatory Transportation Private Auto Medication Reconcilliation completed & No provided to patient/care provider Clinical Summary of Care Provided Yes Additional Wound Wound debrided: Abdomen (inferior) Type of Debridement: Excisional debridement Anesthesia Used: 4% Lidocaine Solution and 5% Lidocaine Gel Depth: Down to and including healthy tissue and in the subcutaneous layer Percentage of wound debrided: 100 Instrument Used: 5mm curette Tissue Removed: Slough and devitalized tissue Severity: Fat Layer Exposed Amount of bleeding with debridement: Mild Bleeding Controlled with: Pressure Patient tolerated procedure: Patient tolerated procedure well Additional Wound Wound debrided: Abdomen (inferior lateral) Type of Debridement: Excisional debridement Anesthesia Used: 4% Lidocaine Solution Depth: Down to and including healthy tissue and in the subcutaneous layer Percentage of wound debrided: 100 Instrument Used: 3mm curette Tissue Removed: Devitalized tissue Severity: Fat Layer Exposed Amount of bleeding with debridement: Mild Bleeding Controlled with: Pressure Patient tolerated procedure: Patient tolerated procedure well Assessment/Plan Assessment/Plan (1) Non-healing surgical wound: CODE(S): T81.89XA - Other complications of procedures, not elsewhere classified, initial encounter QUALIFIERS: Encounter type: initial encounter Qualified Code(s): T81.89XA - Other complications of procedures, not elsewhere classified, initial encounter (2) Type 2 diabetes mellitus: CODE(S): E11.9 - Type 2 diabetes mellitus without complications (3) History of colostomy reversal: CODE(S): Z98.890 - Other specified postprocedural states (4) Surgical wound breakdown: CODE(S): T81.31XA - Disruption of external operation (surgical) wound, not elsewhere classified, initial encounter PLAN: Plan Debridement done as documented above, procedure was well-tolerated. No new concerns reported at this time. Some improvement noted. Spoke with his surgeon last week who is not concerned about a fistula as the drainage from the areas have not been greenish colored. No further workup has been suggested at this time. He states he has only had bloody drainage from the new area. Continue 30 minutes Dakin's soak and apply Aquacel extra. Cover with foam dressing. Moisturize adequately. Continue optimal diabetes control and dietary protein intake. Most recent A1c said to be 6.3. Continue other chronic wound care management. His questions were answered and he was advised to let us know if he has any further questions or concerns. Follow-up in 1 week for a courtesy visit and in 2 weeks with me. This note was generated with [employer] dictation software. It may contain incorrect words, spelling, and punctuation that were not noted in checking the note before signing.
== END 2023-11-25 23:59 | disposition home or self-care (01) ==
LOC: WC 08:45
PROVIDERS: PCP Internal Medicine; Referring Provider Internal Medicine; Visit Provider Internal Medicine
DX: T81.89XA Other complications of procedures, not elsewhere classified, initial encounter (principal); E11.9 Type 2 diabetes mellitus without complications; Z98.890 Other specified postprocedural states; T81.31XA Disruption of external operation (surgical) wound, not elsewhere classified, initial encounter
CPT/HCPCS: 11042; 11045

== ENCOUNTER 2023-12-26 08:15 | Outpatient (RCR) | payer OTHER, SELFPAY ==
[2023-11-26 00:40] VITALS: BP 143/76; PULSE 84; RESP 16; TEMP 36.6; BMI 36.9
[2023-11-27 09:45] VITALS: BP 144/79; PULSE 91; RESP 16; TEMP 36.8; BMI 36.9
--- NOTE | 2023-11-27 12:17 | PN.PCM_ITS ---
History of Present Illness Date of Service: 11/27/23 Chief Complaint: Non healing surgical wound History of Wound: A courtesy visit for Dr. Tabor. Mr. Duque is a 62 yo well- known to her. Last seen here over a month ago. He had been discharged due to plan for closure following colostomy reversal. Surgery was uneventful however, less than a week after surgery, he states that his wound breakdown/dehisced. Initially applied Dakin's dressing but subsequently, started a wound VAC. Since starting wound VAC, he states that there has been much better improvement. Currently set at 150 mmHg. History of diabetes mellitus which is well- controlled. He reports good protein intake. He feels well and denies any acute concerns at this time. Progress of Wound: The wound VAC is gone and patient has 2 large open areas on the suture line that are hardened slough that I scored and tried to debride as best I could around the edges for better healing. Patient tolerated well did get a good bleed after I scored and debride around the edges. Patient has had a recent cultures that were all very rare but she did treat them with antibiotics and he is done with those also. No odor was noted patient will resume with the Dakin's wash and then cover with Aquacel extra moistened with Adaptic and foam dressings. Subjective Subjective Patient was agreeable to plan Objective Data Objective Data As I said courtesy visit for Dr. Thomas patient is doing well still has open wounds we will continue with the Aquacel extra Vital Signs: Vital Signs Temp Pulse Resp BP 98.3 F 91 16 144/79 H 11/27/23 09:45 11/27/23 09:45 11/27/23 09:45 11/27/23 09:45 Weight: 250 lb Body Mass Index (BMI) 36.9 Physical Exam Const alert, oriented x3 and no apparent distress General Appearance: cooperative, comfortable and well kempt HEENT normocephalic, head/scalp atraumatic and hearing grossly normal bilaterally Eyes EOMs intact bilaterally General Eye: normal appearance of both eyes Neck full ROM and supple General: normal visual inspection Resp normal respiratory effort Effort and Inspection: able to speak in complete sentences GI non-tender and non-distended Skin Wounds: wounds noted size Size: See clinical note, bed granulating well, margins well approximated, no odor and open Neuro oriented x3, CN's II-XII intact bilaterally, moves all extremities and no focal motor deficits Psych mental status grossly normal, thought process normal and cooperative Debridement Note Debridement Note Wound debrided: Abdomen (superior) Type of Debridement: Excisional debridement Anesthesia Used: 4% Lidocaine Solution Depth: Down to and including healthy tissue Percentage of wound debrided: 100 Instrument Used: 5mm curette and #15 blade Tissue Removed: Slough and devitalized tissue Severity: Fat Layer Exposed Amount of bleeding with debridement: Mild Bleeding Controlled with: Pressure Patient tolerated procedure: Patient tolerated procedure well Post-Debridement Measurements and Additional Note: Post-Debridement Measurements/Treatment WC - Nurse 1 - General Ulcer Assessment Start: 11/27/23 09:45 Freq: Status: Active Protocol: JUSTIN Activity Type Activity Date Activity User E-sign Co-sign Detail Recorded Client Recorded Date Recorded By Document 11/27/23 09:45 CP [id number] 11/27/23 10:01 CP 11/27/23 09:45 WC - Today's Visit Information Type of service 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 ) Arrival Mode Ambulatory Patient Identification Verified (Name & Yes ) Patient Requires Transmission-Based No Precautions Height and Weight Body Mass Index (BMI) 36.9 BMI Classification Obese Vital Signs Temperature (97.8 F-99.1 F) 98.3 F Temperature Source Temporal Pulse Rate (60-100) 91 Pulse Location Monitor Respiratory Rate (12-18) 16 Respiratory rate source Observation Blood Pressure (90/60-120/80) 144/79 H Blood Pressure Mean (mm Hg) 100 Source Monitor Position Sitting Blood Pressure Location Left Arm History Since Last Visit- (Skip if this is Patient's initial visit) Have you changed medications since your No last visit? Any new allergies or adverse reactions No Had a fall/change in ADL's that may No increase risk of falls Signs or symptoms of abuse and/or No neglect since last visit Have you been in the hospital since your No last visit? Has dressing in place as prescribed Yes Has compression in place as prescribed Yes Has offloadiing in place as prescribed N/A Experienced any changes in pain level or No management Pain Scale: 0-10 Numeric Is Patient Pain Free? Yes JYOTHI Dalal Nurse 1 - General Ulcer Measurement Start: 11/27/23 09:45 Freq: Status: Active Protocol: Activity Type Activity Date Activity User E-sign Co-sign Detail Recorded Client Recorded Date Recorded By Document 11/27/23 09:45 CP [id number] 11/27/23 10:01 CP 11/27/23 09:45 Wound Center Nurse 1 #6 lateral inferior abd -Current Size (cm) - Length 0.4 -Current Size (cm) - Width 0.6 -Current Size (cm) - Depth 2.5 -Total Square Cm 0.24 -Date of Last Picture (Recall this 11/27/23 field) -Exudate Amt Small -Exudate Type Serosanguineous -Wound Margin Flat & Intact -Granulation Amt Large (67-100%) -Granulation Quality Red -Slough/Fibrin No -Texture (Matilde-wound Skin Appearance) No Abnormality -Moisture (Matilde-wound Skin Appearance) No Abnormality -Color (Matilde-wound Skin Appearance) No Abnormality -Temperature (Matilde-wound Skin No Abnormality Appearance) (Pt Warm) -Tenderness on Palpation (Matilde-wound No Skin Appearance) -Ulcer Cleansing Rinsed/ Irrigated with Saline -Foul Odor after Cleansing No -Anesthetic Used 4% Lidocaine Solution 4-ABDOMEN INFERIOR- CLUSTER -Current Size (cm) - Length 5.5 -Current Size (cm) - Width 3 -Current Size (cm) - Depth 0.2 -Total Square Cm 16.5 -Date of Last Picture (Recall this 11/27/23 field) -Exudate Amt Small -Exudate Type Serosanguineous -Wound Margin Flat & Intact -Granulation Amt Large (67-100%) -Granulation Quality Red -Necrosis Amt None Present (0 %) -Texture (Matilde-wound Skin Appearance) No Abnormality -Moisture (Matilde-wound Skin Appearance) No Abnormality -Color (Matilde-wound Skin Appearance) No Abnormality -Temperature (Matilde-wound Skin No Abnormality Appearance) (Pt Warm) -Tenderness on Palpation (Matilde-wound No Skin Appearance) -Ulcer Cleansing Rinsed/ Irrigated with Saline -Foul Odor after Cleansing No -Anesthetic Used 4% Lidocaine Solution 3-ABDOMEN SUPERIOR -Current Size (cm) - Length 4.5 -Current Size (cm) - Width 3.4 -Current Size (cm) - Depth 0.2 -Total Square Cm 15.30 -Date of Last Picture (Recall this 11/27/23 field) -Exudate Amt Small -Exudate Type Serosanguineous -Wound Margin Flat & Intact -Granulation Amt Large (67-100%) -Granulation Quality Red -Slough/Fibrin No -Texture (Matilde-wound Skin Appearance) No Abnormality -Moisture (Matilde-wound Skin Appearance) No Abnormality -Color (Matilde-wound Skin Appearance) No Abnormality -Temperature (Matilde-wound Skin No Abnormality Appearance) (Pt Warm) -Tenderness on Palpation (Matilde-wound Yes Skin Appearance) -Ulcer Cleansing Rinsed/ Irrigated with Saline -Anesthetic Used 4% Lidocaine Solution WC - Nurse 2 - General Ulcer CM Notes Start: 11/27/23 09:45 Freq: Status: Active Protocol: Activity Type Activity Date Activity User E-sign Co-sign Detail Recorded Client Recorded Date Recorded By Document 11/27/23 10:08 [facility] [id number] 11/27/23 10:22 [facility] 11/27/23 10:08 Wound Center Nurse 2 #6 lateral inferior abd -Time 10:09 -Correct Patient Yes -Correct Side, Site, Position Yes -Correct Procedure Yes -Procedure Performed Yes -Type of Procedure Debridement -Clinical Debridement Subcutaneous -Tissue Removed Subcutaneous -Post Debridement (cm) - Length 0.3 -Post Debridement (cm) - Width 0.5 -Post Debridement (cm) - Depth 1 -Total Square (Post) (cm) 0.15 -Area of Debridement (cm) - Length 0.3 -Area of Debridement (cm) - Width 0.5 -Total Square (Area) (cm) 0.15 -Tunneling Yes -Tunneling Position (O'clock) 10 -Tunneling Distance (cm) 2.5 -Undermining/Tunneling No -Circular Undermining No -Wound/Ulcer Outcome Not Healed -Ulcer Cleansing Rinsed/ Irrigated with Saline -Foul Odor after Cleansing No -Bioengineered Tissue No -Bleeding Controlled with Pressure -Treatment Response Procedure Tolerated Well -Debridement - Subq, 1st 20sq cm Yes -Debridement, SubQ, ea addt'l 20sq cm 1 or part thereof 4-ABDOMEN INFERIOR- CLUSTER -Time 10:10 -Correct Patient Yes -Correct Side, Site, Position Yes -Correct Procedure Yes -Procedure Performed Yes -Type of Procedure Debridement -Clinical Debridement Subcutaneous -Tissue Removed Subcutaneous -Post Debridement (cm) - Length 5.5 -Post Debridement (cm) - Width 3.5 -Post Debridement (cm) - Depth 0.2 -Total Square (Post) (cm) 19.25 -Area of Debridement (cm) - Length 5.5 -Area of Debridement (cm) - Width 3.5 -Total Square (Area) (cm) 19.25 -Tunneling No -Undermining/Tunneling No -Circular Undermining No -Wound/Ulcer Outcome Not Healed -Ulcer Cleansing Rinsed/ Irrigated with Saline -Foul Odor after Cleansing No -Bioengineered Tissue No -Treatment Response Procedure Tolerated Well -Debridement - Subq, 1st 20sq cm No 3-ABDOMEN SUPERIOR -Time 10:10 -Correct Patient Yes -Correct Side, Site, Position Yes -Correct Procedure Yes -Procedure Performed Yes -Type of Procedure Debridement -Clinical Debridement Subcutaneous -Tissue Removed Subcutaneous -Post Debridement (cm) - Length 4.5 -Post Debridement (cm) - Width 4 -Post Debridement (cm) - Depth 0.3 -Total Square (Post) (cm) 18.0 -Area of Debridement (cm) - Length 4.5 -Area of Debridement (cm) - Width 4 -Total Square (Area) (cm) 18.0 -Tunneling No -Undermining/Tunneling No -Circular Undermining No -Wound/Ulcer Outcome Not Healed -Ulcer Cleansing Rinsed/ Irrigated with Saline -Foul Odor after Cleansing No -Bioengineered Tissue No -Treatment Response Procedure Tolerated Well -Debridement - Subq, 1st 20sq cm No Pain Scale: 0-10 Numeric Is Patient Pain Free? Yes WC - Nurse 3 - General Ulcer D/C NN Start: 11/27/23 09:45 Freq: Status: Active Protocol: Activity Type Activity Date Activity User E-sign Co-sign Detail Recorded Client Recorded Date Recorded By Document 11/27/23 10:37 CP [id number] 11/27/23 10:40 CP 11/27/23 10:37 Wound Care Center Nurse 3 #6 lateral inferior abd -Ulcer Cleansing Rinsed/ Irrigated with Saline -Primary Dressing Applied Aquacel Extra -Other Dressing adaptic -Primary Dressing Covered/Secured with Dry Gauze, Secured with Tape -Aquacel Extra 1 4-ABDOMEN INFERIOR- CLUSTER -Ulcer Cleansing Rinsed/ Irrigated with Saline -Primary Dressing Applied Aquacel Extra -Other Dressing adaptic -Primary Dressing Covered/Secured with Dry Gauze, Secured with Tape -Aquacel Extra 0 3-ABDOMEN SUPERIOR -Ulcer Cleansing Rinsed/ Irrigated with Saline -Primary Dressing Applied Aquacel Extra -Other Dressing adaptic -Primary Dressing Covered/Secured with Dry Gauze, Secured with Tape -Aquacel Extra 0 Treatment Response Procedure Tolerated Well Pain Scale: 0-10 Numeric Is Patient Pain Free? Yes WC - Visit Discharge Discharge Condition Stable Ambulatory Status Ambulatory Transportation [facility] Clinical Summary of Care Provided Yes Additional Wound Wound debrided: Abdomen (inferior) Type of Debridement: Excisional debridement Anesthesia Used: 4% Lidocaine Solution and 5% Lidocaine Gel Depth: Down to and including healthy tissue and in the subcutaneous layer Percentage of wound debrided: 100 Instrument Used: 5mm curette Tissue Removed: Slough and devitalized tissue Severity: Fat Layer Exposed Amount of bleeding with debridement: Mild Bleeding Controlled with: Pressure Patient tolerated procedure: Patient tolerated procedure well Additional Wound Wound debrided: Abdomen (inferior lateral) Type of Debridement: Excisional debridement Anesthesia Used: 4% Lidocaine Solution Depth: Down to and including healthy tissue and in the subcutaneous layer Percentage of wound debrided: 100 Instrument Used: 3mm curette and #15 blade Tissue Removed: Devitalized tissue Severity: Fat Layer Exposed Amount of bleeding with debridement: Mild Bleeding Controlled with: Pressure Patient tolerated procedure: Patient tolerated procedure well Assessment/Plan Assessment/Plan (1) Non-healing surgical wound: CODE(S): T81.89XA - Other complications of procedures, not elsewhere classified, initial encounter QUALIFIERS: Encounter type: initial encounter Qualified Code(s): T81.89XA - Other complications of procedures, not elsewhere classified, initial encounter (2) Type 2 diabetes mellitus: CODE(S): E11.9 - Type 2 diabetes mellitus without complications QUALIFIERS: Diabetes mellitus long-term insulin use: without oil heaterman use Diabetes mellitus complication status: with skin complications Diabetes mellitus complication detail: with other skin complication Qualified Code(s): E11.628 - Type 2 diabetes mellitus with other skin complications (3) History of colostomy reversal: CODE(S): Z98.890 - Other specified postprocedural states (4) Surgical wound breakdown: CODE(S): T81.31XA - Disruption of external operation (surgical) wound, not elsewhere classified, initial encounter QUALIFIERS: Encounter type: initial encounter Qualified Code(s): T81.31XA - Disruption of external operation (surgical) wound, not elsewhere classified, initial encounter PLAN: Wash areas with antibacterial soap and water apply Aquacel extra to wound base moistened cover with Adaptic and then foam dressing over top Lateral wound pack with Aquacel extra and moistened inside is packing cover with absorbent dressing. Follow-up with regular doctor in 1 week
--- NOTE | 2023-11-28 08:06 | WC ---
PHOTO 11/27/23 SUPERIOR ABD
--- NOTE | 2023-11-28 08:08 | WC ---
PHOTO 11/27/23 LAT INF ABD/ABD INF
[2023-12-05 09:00] VITALS: BP 148/86; PULSE 84; RESP 18; TEMP 36.4; BMI 36.9
--- NOTE | 2023-12-05 10:30 | PN.PCM_ITS ---
History of Present Illness Date of Service: 12/05/23 Chief Complaint: Non healing surgical wound History of Wound: Mr. Duque is a 62 yo Last seen here over a month ago. He had been discharged due to plan for closure following colostomy reversal. Surgery was uneventful however, less than a week after surgery, he states that his wound breakdown/dehisced. Initially applied Dakin's dressing but subsequently, started a wound VAC. Since starting wound VAC, he states that there has been much better improvement. Currently set at 150 mmHg. History of diabetes mellitus which is well-controlled. He reports good protein intake. He feels well and denies any acute concerns at this time. Progress of Wound: No new concerns reported at this time. No significant change since his last visit, appears to have stalled. They have been doing dressing changes as rec ommended. No significant drainage or pain reported. Objective Data Objective Data Vital Signs: Vital Signs Temp Pulse Resp BP O2 Del Method 97.5 F L 84 18 148/86 H Room Air 12/05/23 09:00 12/05/23 09:00 12/05/23 09:00 12/05/23 09:00 12/05/23 09:00 Oxygen Delivery Method Room Air Weight: 250 lb Body Mass Index (BMI) 36.9 Charges/Coding Procedures Integumentary 111xxx-113xx: 13904 Hannah subq tissue 20 sq cm/< Add On Codes: 75175 Hannah subq tissue add-on (Additional sq cm debrided, please refer to clinical note.) Physical Exam Const alert, oriented x3 and no apparent distress General Appearance: cooperative, comfortable and well kempt HEENT normocephalic, head/scalp atraumatic and hearing grossly normal bilaterally Eyes EOMs intact bilaterally General Eye: normal appearance of both eyes Neck full ROM and supple General: normal visual inspection Resp normal respiratory effort Effort and Inspection: able to speak in complete sentences GI non-tender and non-distended Skin Wounds: wounds noted size Size: See clinical note, bed with slough, margins well approximated, no odor and open Neuro oriented x3, CN's II-XII intact bilaterally, moves all extremities and no focal motor deficits Psych mental status grossly normal, thought process normal and cooperative Debridement Note Debridement Note Wound debrided: Abdomen (superior) Type of Debridement: Excisional debridement Anesthesia Used: 4% Lidocaine Solution Depth: Down to and including healthy tissue and in the subcutaneous layer Percentage of wound debrided: 100 Instrument Used: 5mm curette Severity: Fat Layer Exposed Amount of bleeding with debridement: Mild Bleeding Controlled with: Pressure Patient tolerated procedure: Patient tolerated procedure well Post-Debridement Measurements and Additional Note: Post-Debridement Measurements/Treatment [id number] - Nurse 1 - General Ulcer Assessment Start: 11/27/23 09:45 Freq: Status: Active Protocol: JUSTIN Activity Type Activity Date Activity User E-sign Co-sign Detail Recorded Client Recorded Date Recorded By Document 11/27/23 09:45 CP [id number] 11/27/23 10:01 CP Document 12/05/23 09:00 KW [id number] 12/05/23 09:07 KW 11/27/23 12/05/23 09:45 09:00 WC - Today's Visit Information Type of service Follow-up Visit Follow-up Visit (Physician/BINDERY PRODUCTION MANAGER (Physician/BINDERY PRODUCTION MANAGER ) ) Arrival Mode Ambulatory Ambulatory Accompanied by Patient Identification Verified (Name & Yes Yes ) Patient Requires Transmission-Based No Precautions Height and Weight Body Mass Index (BMI) 36.9 36.9 BMI Classification Obese Obese Vital Signs Temperature (97.8 F-99.1 F) 98.3 F 97.5 F L Temperature Source Temporal Temporal Pulse Rate (60-100) 91 84 Pulse Location Monitor Monitor Respiratory Rate (12-18) 16 18 Respiratory rate source Observation Observation Oxygen Delivery Method Room Air Blood Pressure (90/60-120/80) 144/79 H 148/86 H Blood Pressure Mean (mm Hg) 100 106 Source Monitor Monitor Position Sitting Sitting Blood Pressure Location Left Arm Left Arm History Since Last Visit- (Skip if this is Patient's initial visit) Have you changed medications since your No No last visit? Any new allergies or adverse reactions No No Had a fall/change in ADL's that may No No increase risk of falls Signs or symptoms of abuse and/or No No neglect since last visit Have you been in the hospital since your No No last visit? Has dressing in place as prescribed Yes Yes Has compression in place as prescribed Yes N/A Has offloadiing in place as prescribed N/A N/A Experienced any changes in pain level or No No management Left Footwear Regular Shoe Right Footwear Regular Shoe Pain Scale: 0-10 Numeric Is Patient Pain Free? Yes Yes WC - Nurse 1 - General Ulcer Measurement Start: 11/27/23 09:45 Freq: Status: Active Protocol: Activity Type Activity Date Activity User E-sign Co-sign Detail Recorded Client Recorded Date Recorded By Document 11/27/23 09:45 CP [id number] 11/27/23 10:01 CP Document 12/05/23 09:00 KW [id number] 12/05/23 09:07 KW 11/27/23 12/05/23 09:45 09:00 Wound Center Nurse 1 #6 lateral inferior abd -Current Size (cm) - Length 0.4 0.1 -Current Size (cm) - Width 0.6 0.4 -Current Size (cm) - Depth 2.5 0.6 -Total Square Cm 0.24 0.04 -Date of Last Picture (Recall this 11/27/23 field) -Tunneling Yes -Tunneling Position (O'clock) 9 -Tunneling Distance (cm) 2 -Exudate Amt Small Medium -Exudate Type Serosanguineous Serosanguineous -Wound Margin Flat & Intact Distinct, Outline Attached -Granulation Amt Large (67-100%) Large (67-100%) -Granulation Quality Red Red -Slough/Fibrin No -Texture (Matilde-wound Skin Appearance) No Abnormality Assessed -Moisture (Matilde-wound Skin Appearance) No Abnormality Assessed -Color (Matilde-wound Skin Appearance) No Abnormality Assessed -Temperature (Matilde-wound Skin No Abnormality No Abnormality Appearance) (Pt Warm) (Pt Warm) -Tenderness on Palpation (Matilde-wound No No Skin Appearance) -Ulcer Cleansing Rinsed/ Rinsed/ Irrigated with Irrigated with Saline Saline -Foul Odor after Cleansing No No -Anesthetic Used 4% Lidocaine 4% Lidocaine Solution Solution 4-ABDOMEN INFERIOR -Current Size (cm) - Length 5.5 5.2 -Current Size (cm) - Width 3 3 -Current Size (cm) - Depth 0.2 0.1 -Total Square Cm 16.5 15.6 -Date of Last Picture (Recall this 11/27/23 field) -Exudate Amt Small Small -Exudate Type Serosanguineous Serosanguineous -Wound Margin Flat & Intact Distinct, Outline Attached -Granulation Amt Large (67-100%) Large (67-100%) -Granulation Quality Red [place],Red -Necrosis Amt None Present (0 %) -Texture (Matilde-wound Skin Appearance) No Abnormality Assessed -Moisture (Matilde-wound Skin Appearance) No Abnormality Assessed -Color (Matilde-wound Skin Appearance) No Abnormality Assessed -Temperature (Matilde-wound Skin No Abnormality No Abnormality Appearance) (Pt Warm) (Pt Warm) -Tenderness on Palpation (Matilde-wound No No Skin Appearance) -Ulcer Cleansing Rinsed/ Rinsed/ Irrigated with Irrigated with Saline Saline -Foul Odor after Cleansing No No -Anesthetic Used 4% Lidocaine 4% Lidocaine Solution Solution 3-ABDOMEN SUPERIOR -Current Size (cm) - Length 4.5 4.6 -Current Size (cm) - Width 3.4 4.5 -Current Size (cm) - Depth 0.2 0.2 -Total Square Cm 15.30 20.70 -Date of Last Picture (Recall this 11/27/23 field) -Exudate Amt Small Small -Exudate Type Serosanguineous Serosanguineous -Wound Margin Flat & Intact Distinct, Outline Attached -Granulation Amt Large (67-100%) Large (67-100%) -Granulation Quality Red [place],Red -Slough/Fibrin No -Necrosis Amt Small (1-33%) -Necrotic Tissue Type Adherent Slough -Texture (Matilde-wound Skin Appearance) No Abnormality Assessed -Moisture (Matilde-wound Skin Appearance) No Abnormality Assessed -Color (Matilde-wound Skin Appearance) No Abnormality Assessed -Temperature (Matilde-wound Skin No Abnormality No Abnormality Appearance) (Pt Warm) (Pt Warm) -Tenderness on Palpation (Matilde-wound Yes No Skin Appearance) -Ulcer Cleansing Rinsed/ Rinsed/ Irrigated with Irrigated with Saline Saline -Foul Odor after Cleansing No -Anesthetic Used 4% Lidocaine 4% Lidocaine Solution Solution WC - Nurse 2 - General Ulcer CM Notes Start: 11/27/23 09:45 Freq: Status: Active Protocol: Activity Type Activity Date Activity User E-sign Co-sign Detail Recorded Client Recorded Date Recorded By Document 11/27/23 10:08 [facility] [id number] 11/27/23 10:22 BM Document 12/05/23 09:16 [id number] 12/05/23 09:28 11/27/23 12/05/23 10:08 09:16 Wound Center Nurse 2 #6 lateral inferior abd -Time 10:09 09:16 -Correct Patient Yes Yes -Correct Side, Site, Position Yes Yes -Correct Procedure Yes Yes -Procedure Performed Yes Yes -Type of Procedure Debridement Debridement -Clinical Debridement Subcutaneous Subcutaneous -Tissue Removed Subcutaneous Subcutaneous -Post Debridement (cm) - Length 0.3 0.2 -Post Debridement (cm) - Width 0.5 0.4 -Post Debridement (cm) - Depth 1 0.6 -Total Square (Post) (cm) 0.15 0.08 -Area of Debridement (cm) - Length 0.3 0.2 -Area of Debridement (cm) - Width 0.5 0.4 -Total Square (Area) (cm) 0.15 0.08 -Tunneling Yes Yes -Tunneling Position (O'clock) 10 10 -Tunneling Distance (cm) 2.5 2.8 -Undermining/Tunneling No No -Circular Undermining No No -Wound/Ulcer Outcome Not Healed Not Healed -Ulcer Cleansing Rinsed/ Rinsed/ Irrigated with Irrigated with Saline Saline -Foul Odor after Cleansing No No -Bioengineered Tissue No No -Bleeding Controlled with Pressure Pressure -Treatment Response Procedure Procedure Tolerated Well Tolerated Well -Debridement - Subq, 1st 20sq cm Yes No -Debridement, SubQ, ea addt'l 20sq cm 1 or part thereof 4-ABDOMEN INFERIOR -Time 10:10 09:17 -Correct Patient Yes Yes -Correct Side, Site, Position Yes Yes -Correct Procedure Yes Yes -Procedure Performed Yes Yes -Type of Procedure Debridement Debridement -Clinical Debridement Subcutaneous Subcutaneous -Tissue Removed Subcutaneous Subcutaneous -Post Debridement (cm) - Length 5.5 5.0 -Post Debridement (cm) - Width 3.5 3.6 -Post Debridement (cm) - Depth 0.2 0.1 -Total Square (Post) (cm) 19.25 18.00 -Area of Debridement (cm) - Length 5.5 5.0 -Area of Debridement (cm) - Width 3.5 3.6 -Total Square (Area) (cm) 19.25 18.00 -Tunneling No No -Undermining/Tunneling No No -Circular Undermining No No -Wound/Ulcer Outcome Not Healed Not Healed -Ulcer Cleansing Rinsed/ Rinsed/ Irrigated with Irrigated with Saline Saline -Foul Odor after Cleansing No No -Bioengineered Tissue No -Bleeding Controlled with Pressure -Treatment Response Procedure Procedure Tolerated Well Tolerated Well -Debridement - Subq, 1st 20sq cm No No 3-ABDOMEN SUPERIOR -Time 10:10 09:18 -Correct Patient Yes Yes -Correct Side, Site, Position Yes Yes -Correct Procedure Yes Yes -Procedure Performed Yes Yes -Type of Procedure Debridement Debridement -Clinical Debridement Subcutaneous Subcutaneous -Tissue Removed Subcutaneous Subcutaneous -Post Debridement (cm) - Length 4.5 4.5 -Post Debridement (cm) - Width 4 4.5 -Post Debridement (cm) - Depth 0.3 0.7 -Total Square (Post) (cm) 18.0 20.25 -Area of Debridement (cm) - Length 4.5 4.5 -Area of Debridement (cm) - Width 4 4.5 -Total Square (Area) (cm) 18.0 20.25 -Tunneling No No -Undermining/Tunneling No No -Circular Undermining No No -Wound/Ulcer Outcome Not Healed Not Healed -Ulcer Cleansing Rinsed/ Rinsed/ Irrigated with Irrigated with Saline Saline -Foul Odor after Cleansing No No -Bioengineered Tissue No No -Bleeding Controlled with Pressure -Treatment Response Procedure Procedure Tolerated Well Tolerated Well -Debridement - Subq, 1st 20sq cm No Yes -Debridement, SubQ, ea addt'l 20sq cm 1 or part thereof Pain Scale: 0-10 Numeric Is Patient Pain Free? Yes Yes WC - Nurse 3 - General Ulcer D/C NN Start: 11/27/23 09:45 Freq: Status: Active Protocol: Activity Type Activity Date Activity User E-sign Co-sign Detail Recorded Client Recorded Date Recorded By Document 11/27/23 10:37 CP [id number] 11/27/23 10:40 CP Document 12/05/23 09:43 KW [id number] 12/05/23 09:45 KW 11/27/23 12/05/23 10:37 09:43 Wound Care Center Nurse 3 #6 lateral inferior abd -Ulcer Cleansing Rinsed/ Rinsed/ Irrigated with Irrigated with Saline Saline -Foul Odor after Cleansing No -Primary Dressing Applied Aquacel Extra Aquacel Rope -Other Dressing adaptic abd -Primary Dressing Covered/Secured with Dry Gauze, Secured with Secured with Tape Tape -Aquacel Extra 1 -Aquacel Rope 1 4-ABDOMEN INFERIOR -Ulcer Cleansing Rinsed/ Rinsed/ Irrigated with Irrigated with Saline Saline -Foul Odor after Cleansing No -Primary Dressing Applied Aquacel Extra -Other Dressing adaptic copper wound drsg; abd -Primary Dressing Covered/Secured with Dry Gauze, Secured with Secured with Tape Tape -Aquacel Extra 0 3-ABDOMEN SUPERIOR -Ulcer Cleansing Rinsed/ Rinsed/ Irrigated with Irrigated with Saline Saline -Foul Odor after Cleansing No -Primary Dressing Applied Aquacel Extra -Other Dressing adaptic copper wound drsg; abd -Primary Dressing Covered/Secured with Dry Gauze, Secured with Secured with Tape Tape -Aquacel Extra 0 Treatment Response Procedure Procedure Tolerated Well Tolerated Well Pain Scale: 0-10 Numeric Is Patient Pain Free? Yes Yes WC - Visit Discharge Discharge Condition Stable Stable Ambulatory Status Ambulatory Ambulatory Transportation Private Auto Private Auto Clinical Summary of Care Provided Yes Additional Wound Wound debrided: Abdomen (inferior) Type of Debridement: Excisional debridement Anesthesia Used: 4% Lidocaine Solution Depth: Down to and including healthy tissue and in the subcutaneous layer Percentage of wound debrided: 100 Instrument Used: 5mm curette Tissue Removed: Slough and devitalized tissue Severity: Fat Layer Exposed Amount of bleeding with debridement: Mild Bleeding Controlled with: Pressure Patient tolerated procedure: Patient tolerated procedure well Additional Wound Wound debrided: Abdomen (lower lateral) Type of Debridement: Excisional debridement Anesthesia Used: 4% Lidocaine Solution Depth: Down to and including healthy tissue and in the subcutaneous layer Percentage of wound debrided: 100 Instrument Used: - (1mm) Tissue Removed: Devitalized tissue Severity: Fat Layer Exposed Amount of bleeding with debridement: Mild Bleeding Controlled with: Pressure Patient tolerated procedure: Patient tolerated procedure well Assessment/Plan Assessment/Plan (1) Non-healing surgical wound: CODE(S): T81.89XA - Other complications of procedures, not elsewhere classified, initial encounter QUALIFIERS: Encounter type: initial encounter Qualified Code(s): T81.89XA - Other complications of procedures, not elsewhere classified, initial encounter (2) Type 2 diabetes mellitus: CODE(S): E11.9 - Type 2 diabetes mellitus without complications QUALIFIERS: Diabetes mellitus care home insulin use: without intermission coordinator use Diabetes mellitus complication status: with skin complications Diabet es mellitus complication detail: with other skin complication Qualified Code(s): E11.628 - Type 2 diabetes mellitus with other skin complications (3) History of colostomy reversal: CODE(S): Z98.890 - Other specified postprocedural states (4) Surgical wound breakdown: CODE(S): T81.31XA - Disruption of external operation (surgical) wound, not elsewhere classified, initial encounter QUALIFIERS: Encounter type: initial encounter Qualified Code(s): T81.31XA - Disruption of external operation (surgical) wound, not elsewhere classified, initial encounter PLAN: Plan Debridement done as documented above, procedure was well-tolerated. No significant change. Lower lateral with some improvement in circumference however depth/tunnel remains. They deny increased pain or drainage from all areas. Due to stalling, will switch to copper dressing. Apply orange side down ensuring dressing covers the periwound area as well. Switch to Aquacel rope for ease of application to the lower lateral ulcer. Moisten lightly and cover with ABD. Leave copper dressing in place for 3 days and may change lower lateral/Aquacel extra daily. Moisturize adequately. Continue optimal diabetes control and dietary protein intake. Most recent A1c said to be 6.3. Continue other chronic wound care management. His questions were answered and he was advised to let us know if he has any further questions or concerns. Follow-up in 1 week. This note was generated with [employer] dictation software. It may contain incorrect words, spelling, and punctuation that were not noted in checking the note before signing.
--- NOTE | 2023-12-06 11:56 | WC ---
PHOTO 12/05/23 SUPERIOR ABD
--- NOTE | 2023-12-06 11:57 | WC ---
PHOTO 12/05/23 INF ABD
--- NOTE | 2023-12-06 11:59 | WC ---
PHOTO 12/05/23 LETICIA LEVINE
[2023-12-12 10:56] VITALS: BP 150/97; PULSE 89; RESP 18; TEMP 36.2; BMI 36.9
--- NOTE | 2023-12-12 12:36 | PCM.WC.PN ---
History of Present Illness Date of Service: 12/12/23 Chief Complaint: Non healing surgical wound History of Wound: Mr. Duque is a 62 yo Last seen here over a month ago. He had been discharged due to plan for closure following colostomy reversal. Surgery was uneventful however, less than a week after surgery, he states that his wound breakdown/dehisced. Initially applied Dakin's dressing but subsequently, started a wound VAC. Since starting wound VAC, he states that there has been much better improvement. Currently set at 150 mmHg. History of diabetes mellitus which is well-controlled. He reports good protein intake. He feels well and denies any acute concerns at this time. Progress of Wound: Seen by his surgeon this morning and had incision to the inferior lateral ulcer today. He states that there is concern for foreign body/suture and plan is for surgical exploration if no significant change. Was switched to the copper dressing last week. On initial change, he states that he ripped it off and took off some new skin. Second change was better tolerated following moistening. No significant concerns otherwise. Objective Data Objective Data Vital Signs: Vital Signs Temp Pulse Resp BP O2 Del Method 97.1 F L 89 18 150/97 H Room Air 12/12/23 10:56 12/12/23 10:56 12/12/23 10:56 12/12/23 10:56 12/12/23 10:56 Oxygen Delivery Method Room Air Weight: 250 lb Body Mass Index (BMI) 36.9 Charges/Coding Procedures Integumentary 111xxx-113xx: [id number] Hannah subq tissue 20 sq cm/< Physical Exam Const alert, oriented x3 and no apparent distress General Appearance: cooperative, comfortable and well kempt HEENT normocephalic, head/scalp atraumatic and hearing grossly normal bilaterally Eyes EOMs intact bilaterally General Eye: normal appearance of both eyes Neck full ROM and supple General: normal visual inspection Resp normal respiratory effort Effort and Inspection: able to speak in complete sentences GI non-tender and non-distended Skin Wounds: wounds noted size Size: See clinical note, bed granulating well and with slough, margins well approximated, no odor and open Neuro oriented x3, CN's II-XII intact bilaterally, moves all extremities and no focal motor deficits Psych mental status grossly normal, thought process normal and cooperative Debridement Note Debridement Note Wound debrided: Abdomen (superior) Type of Debridement: Excisional debridement Anesthesia Used: 5% Lidocaine Gel Depth: Down to and including healthy tissue and in the subcutaneous layer Percentage of wound debrided: 100 Instrument Used: 7mm curette Tissue Removed: Slough and devitalized tissue Severity: Fat Layer Exposed Amount of bleeding with debridement: Mild Bleeding Controlled with: Pressure Patient tolerated procedure: Patient tolerated procedure well Post-Debridement Measurements and Additional Note: Post-Debridement Measurements/Treatment - Nurse 1 - General Ulcer Assessment Start: 11/27/23 09:45 Freq: Status: Active Protocol: JUSTIN Activity Type Activity Date Activity User E-sign Co-sign Detail Recorded Client Recorded Date Recorded By Document 11/27/23 09:45 CP [id number] 11/27/23 10:01 CP Document 12/05/23 09:00 KW [id number] 12/05/23 09:07 KW Document 12/12/23 10:56 KW [id number] 12/12/23 11:09 KW 11/27/23 12/05/23 12/12/23 09:45 09:00 10:56 - Today's Visit Information Type of service Follow-up Visit Follow-up Visit Follow-up Visit (Physician/[employer] DEVELOPER (Physician/[employer] CRM DEVELOPER (Physician/[employer] CRM DEVELOPER ) ) ) Arrival Mode Ambulatory Ambulatory Ambulatory Accompanied by Patient Identification Verified (Name & Yes Yes Yes ) Patient Requires Transmission-Based No Precautions Height and Weight Body Mass Index (BMI) 36.9 36.9 36.9 BMI Classification Obese Obese Obese Vital Signs Temperature (97.8 F-99.1 F) 98.3 F 97.5 F L 97.1 F L Temperature Source Temporal Temporal Temporal Pulse Rate (60-100) 91 84 89 Pulse Location Monitor Monitor Monitor Respiratory Rate (12-18) 16 18 18 Respiratory rate source Observation Observation Observation Oxygen Delivery Method Room Air Room Air Blood Pressure (90/60-120/80) 144/79 H 148/86 H 150/97 H Blood Pressure Mean (mm Hg) 100 106 114 Source Monitor Monitor Monitor Position Sitting Sitting Sitting Blood Pressure Location Left Arm Left Arm Right Arm History Since Last Visit- (Skip if this is Patient's initial visit) Have you changed medications since your No No No last visit? Any new allergies or adverse reactions No No No Had a fall/change in ADL's that may No No No increase risk of falls Signs or symptoms of abuse and/or No No No neglect since last visit Have you been in the hospital since your No No No last visit? Has dressing in place as prescribed Yes Yes Yes Has compression in place as prescribed Yes N/A N/A Has offloadiing in place as prescribed N/A N/A N/A Experienced any changes in pain level or No No No management Left Footwear Regular Shoe Regular Shoe Right Footwear Regular Shoe Regular Shoe Pain Scale: 0-10 Numeric Is Patient Pain Free? Yes Yes Yes WC - Nurse 1 - General Ulcer Measurement Start: 11/27/23 09:45 Freq: Status: Active Protocol: Activity Type Activity Date Activity User E-sign Co-sign Detail Recorded Client Recorded Date Recorded By Document 11/27/23 09:45 CP [id number] 11/27/23 10:01 CP Document 12/05/23 09:00 KW [id number] 12/05/23 09:07 KW Document 12/12/23 10:56 KW [id number] 12/12/23 11:09 KW 11/27/23 12/05/23 12/12/23 09:45 09:00 10:56 Wound Center Nurse 1 #6 lateral inferior abd -Current Size (cm) - Length 0.4 0.1 0.3 -Current Size (cm) - Width 0.6 0.4 1.1 -Current Size (cm) - Depth 2.5 0.6 1.2 -Total Square Cm 0.24 0.04 0.33 -Date of Last Picture (Recall this 11/27/23 12/12/23 field) -Tunneling Yes Yes -Tunneling Position (O'clock) 9 9 -Tunneling Distance (cm) 2 2.1 -Exudate Amt Small Medium Large -Exudate Type Serosanguineous Serosanguineous Serosanguineous -Wound Margin Flat & Intact Distinct, Distinct, Outline Outline Attached Attached -Granulation Amt Large (67-100%) Large (67-100%) Large (67-100%) -Granulation Quality Red Red Red -Slough/Fibrin No -Texture (Matilde-wound Skin Appearance) No Abnormality Assessed Assessed -Moisture (Matilde-wound Skin Appearance) No Abnormality Assessed Assessed -Color (Matilde-wound Skin Appearance) No Abnormality Assessed Assessed -Temperature (Matilde-wound Skin No Abnormality No Abnormality No Abnormality Appearance) (Pt Warm) (Pt Warm) (Pt Warm) -Tenderness on Palpation (Matilde-wound No No No Skin Appearance) -Ulcer Cleansing Rinsed/ Rinsed/ Rinsed/ Irrigated with Irrigated with Irrigated with Saline Saline Saline -Foul Odor after Cleansing No No No -Anesthetic Used 4% Lidocaine 4% Lidocaine 4% Lidocaine Solution Solution Solution 4-ABDOMEN INFERIOR -Current Size (cm) - Length 5.5 5.2 5 -Current Size (cm) - Width 3 3 3.2 -Current Size (cm) - Depth 0.2 0.1 0.1 -Total Square Cm 16.5 15.6 16.0 -Date of Last Picture (Recall this 11/27/23 12/12/23 field) -Exudate Amt Small Small Small -Exudate Type Serosanguineous Serosanguineous Serosanguineous -Wound Margin Flat & Intact Distinct, Distinct, Outline Outline Attached Attached -Granulation Amt Large (67-100%) Large (67-100%) Large (67-100%) -Granulation Quality Red [place],Red [place],Red -Necrosis Amt None Present (0 %) -Texture (Matilde-wound Skin Appearance) No Abnormality Assessed Assessed, Scarring -Moisture (Matilde-wound Skin Appearance) No Abnormality Assessed Assessed,Dry/ Scaly -Color (Matilde-wound Skin Appearance) No Abnormality Assessed Assessed -Temperature (Matilde-wound Skin No Abnormality No Abnormality No Abnormality Appearance) (Pt Warm) (Pt Warm) (Pt Warm) -Tenderness on Palpation (Matilde-wound No No No Skin Appearance) -Ulcer Cleansing Rinsed/ Rinsed/ Rinsed/ Irrigated with Irrigated with Irrigated with Saline Saline Saline -Foul Odor after Cleansing No No No -Anesthetic Used 4% Lidocaine 4% Lidocaine 4% Lidocaine Solution Solution Solution 3-ABDOMEN SUPERIOR -Current Size (cm) - Length 4.5 4.6 4.5 -Current Size (cm) - Width 3.4 4.5 4.4 -Current Size (cm) - Depth 0.2 0.2 0.1 -Total Square Cm 15.30 20.70 19.80 -Date of Last Picture (Recall this 11/27/23 12/12/23 field) -Exudate Amt Small Small Small -Exudate Type Serosanguineous Serosanguineous Serosanguineous -Wound Margin Flat & Intact Distinct, Distinct, Outline Outline Attached Attached -Granulation Amt Large (67-100%) Large (67-100%) Medium (34-66%) -Granulation Quality Red [place],Red [place] -Slough/Fibrin No -Necrosis Amt Small (1-33%) Medium (34-66%) -Necrotic Tissue Type Adherent Slough Adherent Slough -Texture (Matilde-wound Skin Appearance) No Abnormality Assessed Assessed, Scarring -Moisture (Matilde-wound Skin Appearance) No Abnormality Assessed Assessed,Dry/ Scaly -Color (Matilde-wound Skin Appearance) No Abnormality Assessed Assessed -Temperature (Matilde-wound Skin No Abnormality No Abnormality No Abnormality Appearance) (Pt Warm) (Pt Warm) (Pt Warm) -Tenderness on Palpation (Matilde-wound Yes No No Skin Appearance) -Ulcer Cleansing Rinsed/ Rinsed/ Rinsed/ Irrigated with Irrigated with Irrigated with Saline Saline Saline -Foul Odor after Cleansing No No -Anesthetic Used 4% Lidocaine 4% Lidocaine 4% Lidocaine Solution Solution Solution WC - Nurse 2 - General Ulcer CM Notes Start: 11/27/23 09:45 Freq: Status: Active Protocol: Activity Type Activity Date Activity User E-sign Co-sign Detail Recorded Client Recorded Date Recorded By Document 11/27/23 10:08 [facility] [id number] 11/27/23 10:22 [facility] Document 12/05/23 09:16 [id number] 12/05/23 09:28 Document 12/12/23 11:21 [id number] 12/12/23 11:30 11/27/23 12/05/23 12/12/23 10:08 09:16 11:21 Wound Center Nurse 2 #6 lateral inferior abd -Time 10:09 09:16 11:21 -Correct Patient Yes Yes Yes -Correct Side, Site, Position Yes Yes Yes -Correct Procedure Yes Yes -Procedure Performed Yes Yes -Type of Procedure Debridement Debridement -Clinical Debridement Subcutaneous Subcutaneous -Tissue Removed Subcutaneous Subcutaneous -Post Debridement (cm) - Length 0.3 0.2 -Post Debridement (cm) - Width 0.5 0.4 -Post Debridement (cm) - Depth 1 0.6 -Total Square (Post) (cm) 0.15 0.08 -Area of Debridement (cm) - Length 0.3 0.2 -Area of Debridement (cm) - Width 0.5 0.4 -Total Square (Area) (cm) 0.15 0.08 -Tunneling Yes Yes No -Tunneling Position (O'clock) 10 10 -Tunneling Distance (cm) 2.5 2.8 -Undermining/Tunneling No No No -Circular Undermining No No No -Wound/Ulcer Outcome Not Healed Not Healed Not Healed -Ulcer Cleansing Rinsed/ Rinsed/ Rinsed/ Irrigated with Irrigated with Irrigated with Saline Saline Saline -Foul Odor after Cleansing No No No -Bioengineered Tissue No No No -Bleeding Controlled with Pressure Pressure -Treatment Response Procedure Procedure Tolerated Well Tolerated Well -Debridement - Subq, 1st 20sq cm Yes No -Debridement, SubQ, ea addt'l 20sq cm 1 or part thereof 4-ABDOMEN INFERIOR -Time 10:10 09:17 11:21 -Correct Patient Yes Yes Yes -Correct Side, Site, Position Yes Yes Yes -Correct Procedure Yes Yes Yes -Procedure Performed Yes Yes Yes -Type of Procedure Debridement Debridement Debridement -Clinical Debridement Subcutaneous Subcutaneous Subcutaneous -Tissue Removed Subcutaneous Subcutaneous Subcutaneous -Post Debridement (cm) - Length 5.5 5.0 5.0 -Post Debridement (cm) - Width 3.5 3.6 3.7 -Post Debridement (cm) - Depth 0.2 0.1 0.1 -Total Square (Post) (cm) 19.25 18.00 18.50 -Area of Debridement (cm) - Length 5.5 5.0 5.0 -Area of Debridement (cm) - Width 3.5 3.6 3.7 -Total Square (Area) (cm) 19.25 18.00 18.50 -Tunneling No No No -Undermining/Tunneling No No No -Circular Undermining No No No -Wound/Ulcer Outcome Not Healed Not Healed Not Healed -Ulcer Cleansing Rinsed/ Rinsed/ Rinsed/ Irrigated with Irrigated with Irrigated with Saline Saline Saline -Foul Odor after Cleansing No No No -Bioengineered Tissue No No -Bleeding Controlled with Pressure Pressure -Treatment Response Procedure Procedure Procedure Tolerated Well Tolerated Well Tolerated Well -Debridement - Subq, 1st 20sq cm No No No 3-ABDOMEN SUPERIOR -Time 10:10 09:18 11:21 -Correct Patient Yes Yes Yes -Correct Side, Site, Position Yes Yes Yes -Correct Procedure Yes Yes Yes -Procedure Performed Yes Yes Yes -Type of Procedure Debridement Debridement Debridement -Clinical Debridement Subcutaneous Subcutaneous Subcutaneous -Tissue Removed Subcutaneous Subcutaneous Subcutaneous -Post Debridement (cm) - Length 4.5 4.5 4.7 -Post Debridement (cm) - Width 4 4.5 4.7 -Post Debridement (cm) - Depth 0.3 0.7 0.4 -Total Square (Post) (cm) 18.0 20.25 22.09 -Area of Debridement (cm) - Length 4.5 4.5 4.7 -Area of Debridement (cm) - Width 4 4.5 4.7 -Total Square (Area) (cm) 18.0 20.25 22.09 -Tunneling No No No -Undermining/Tunneling No No No -Circular Undermining No No No -Wound/Ulcer Outcome Not Healed Not Healed Not Healed -Ulcer Cleansing Rinsed/ Rinsed/ Rinsed/ Irrigated with Irrigated with Irrigated with Saline Saline Saline -Foul Odor after Cleansing No No No -Bioengineered Tissue No No No -Bleeding Controlled with Pressure Pressure -Treatment Response Procedure Procedure Procedure Tolerated Well Tolerated Well Tolerated Well -Debridement - Subq, 1st 20sq cm No Yes Yes -Debridement, SubQ, ea addt'l 20sq cm 1 or part thereof Pain Scale: 0-10 Numeric Is Patient Pain Free? Yes Yes Yes WC - Nurse 3 - General Ulcer D/C NN Start: 11/27/23 09:45 Freq: Status: Active Protocol: Activity Type Activity Date Activity User E-sign Co-sign Detail Recorded Client Recorded Date Recorded By Document 11/27/23 10:37 CP [id number] 11/27/23 10:40 CP Document 12/05/23 09:43 KW [id number] 12/05/23 09:45 KW Document 12/12/23 11:42 KW [id number] 12/12/23 11:44 KW 11/27/23 12/05/23 12/12/23 10:37 09:43 11:42 Wound Care Center Nurse 3 #6 lateral inferior abd -Ulcer Cleansing Rinsed/ Rinsed/ Not Cleansed Irrigated with Irrigated with Saline Saline -Foul Odor after Cleansing No No -Primary Dressing Applied Aquacel Extra Aquacel Rope -Other Dressing adaptic abd -Primary Dressing Covered/Secured with Dry Gauze, Secured with Dry Gauze Secured with Tape Tape -Aquacel Extra 1 -Aquacel Rope 1 4-ABDOMEN INFERIOR -Ulcer Cleansing Rinsed/ Rinsed/ Not Cleansed Irrigated with Irrigated with Saline Saline -Foul Odor after Cleansing No No -Primary Dressing Applied Aquacel Extra -Other Dressing adaptic copper wound copper wound drsg; abd dressing sample and abd -Primary Dressing Covered/Secured with Dry Gauze, Secured with Secured with Secured with Tape Tape Tape -Aquacel Extra 0 3-ABDOMEN SUPERIOR -Ulcer Cleansing Rinsed/ Rinsed/ Not Cleansed Irrigated with Irrigated with Saline Saline -Foul Odor after Cleansing No No -Primary Dressing Applied Aquacel Extra -Other Dressing adaptic copper wound copper wound drsg; abd dressing sample and abd -Primary Dressing Covered/Secured with Dry Gauze, Secured with Secured with Secured with Tape Tape Tape -Aquacel Extra 0 Treatment Response Procedure Procedure Tolerated Well Tolerated Well Pain Scale: 0-10 Numeric Is Patient Pain Free? Yes Yes Yes WC - Visit Discharge Discharge Condition Stable Stable Stable Ambulatory Status Ambulatory Ambulatory Ambulatory Transportation Private Auto Private Auto Private Auto Clinical Summary of Care Provided Yes Additional Wound Wound debrided: Abdomen (inferior) Type of Debridement: Excisional debridement Anesthesia Used: 5% Lidocaine Gel Depth: Down to and including healthy tissue and in the subcutaneous layer Percentage of wound debrided: 100 Instrument Used: 7mm curette Tissue Removed: Slough and devitalized tissue Severity: Fat Layer Exposed Amount of bleeding with debridement: Mild Bleeding Controlled with: Pressure Patient tolerated procedure: Patient tolerated procedure well Assessment/Plan Assessment/Plan (1) Non-healing surgical wound: CODE(S): T81.89XA - Other complications of procedures, not elsewhere classified, initial encounter QUALIFIERS: Encounter type: initial encounter Qualified Code(s): T81.89XA - Other complications of procedures, not elsewhere classified, initial encounter (2) Type 2 diabetes mellitus: CODE(S): E11.9 - Type 2 diabetes mellitus without complications QUALIFIERS: Diabetes mellitus complication detail: with other skin complication Diabetes mellitus complication status: with skin complications Diabetes mellitus supervisor intermediates insulin use: without jail use Qualified Code(s): E11.628 - Type 2 diabetes mellitus with other skin complications (3) History of colostomy reversal: CODE(S): Z98.890 - Other specified postprocedural states (4) Surgical wound breakdown: CODE(S): T81.31XA - Disruption of external operation (surgical) wound, not elsewhere classified, initial encounter QUALIFIERS: Encounter type: initial encounter Qualified Code(s): T81.31XA - Disruption of external operation (surgical) wound, not elsewhere classified, initial encounter PLAN: Plan Debridement done as documented above, procedure was well-tolerated. Much better granulation noted today, slough still present but improved compared to his last visit. As above, had further bedside incision and debridement of the inferior lateral ulcer by his surgeon today. Continue Dressing to the inferior and superior ulcers/wounds. Apply orange side down ensuring dressing covers the periwound area as well. Moisten lightly and cover with Adaptic and ABD. leave Dressing in place for 3 days. They were advised to moisten very well prior to changing, they voiced understanding. Dry gauze has been recommended by his surgeon to the area of incision and drainage, continue same and may change daily to twice daily as needed. Moisturize adequately. Continue optimal diabetes control and dietary protein intake. Most recent A1c said to be 6.3. Continue other chronic wound care management. His questions were answered and he was advised to let us know if he has any further questions or concerns. Follow-up in 1 week. This note was generated with [employer] dictation software. It may contain incorrect words, spelling, and punctuation that were not noted in checking the note before signing.
--- NOTE | 2023-12-16 13:19 | WC ---
PHOTO 12/12/23 SUP. ABD
--- NOTE | 2023-12-16 13:19 | WC ---
PHOTO 12/12/23 INF. ABD
--- NOTE | 2023-12-16 13:20 | WC ---
PHOTO 12/12/23 LETICIA LEVINE
[2023-12-19 08:41] VITALS: BP 155/81; PULSE 77; RESP 18; TEMP 35.8; BMI 36.9
--- NOTE | 2023-12-19 10:30 | PCM.WC.PN ---
History of Present Illness Date of Service: 12/19/23 Chief Complaint: Non healing surgical wound History of Wound: Mr. Duque is a 62 yo Last seen here over a month ago. He had been discharged due to plan for closure following colostomy reversal. Surgery was uneventful however, less than a week after surgery, he states that his wound breakdown/dehisced. Initially applied Dakin's dressing but subsequently, started a wound VAC. Since starting wound VAC, he states that there has been much better improvement. Currently set at 150 mmHg. History of diabetes mellitus which is well-controlled. He reports good protein intake. He feels well and denies any acute concerns at this time. Progress of Wound: No new concerns reported. Has been doing dressing changes as recommended. Some improvement noted this week. Objective Data Objective Data Vital Signs: Vital Signs Temp Pulse Resp BP O2 Del Method 96.5 F L 77 18 155/81 H Room Air 12/19/23 08:41 12/19/23 08:41 12/19/23 08:41 12/19/23 08:41 12/19/23 08:41 Oxygen Delivery Method Room Air Weight: 250 lb Body Mass Index (BMI) 36.9 Charges/Coding Procedures Integumentary 111xxx-113xx: [id number] Hannah subq tissue 20 sq cm/< Add On Codes: 07288 Hannah subq tissue add-on (x1. Additional square centimeter debrided, please refer to clinical note.) Physical Exam Const alert, oriented x3 and no apparent distress General Appearance: cooperative, comfortable and well kempt HEENT normocephalic, head/scalp atraumatic and hearing grossly normal bilaterally Eyes EOMs intact bilaterally General Eye: normal appearance of both eyes Neck full ROM and supple General: normal visual inspection Resp normal respiratory effort Effort and Inspection: able to speak in complete sentences GI non-tender and non-distended Skin Wounds: wounds noted size Size: See clinical note, bed granulating well, margins well approximated, no odor and open Neuro oriented x3, CN's II-XII intact bilaterally, moves all extremities and no focal motor deficits Psych mental status grossly normal, thought process normal and cooperative Debridement Note Debridement Note Wound debrided: Abdomen (superior) Type of Debridement: Excisional debridement Anesthesia Used: 5% Lidocaine Gel Depth: Down to and including healthy tissue and in the subcutaneous layer Percentage of wound debrided: 100 Instrument Used: 7mm curette Tissue Removed: Slough and devitalized tissue Severity: Fat Layer Exposed Amount of bleeding with debridement: Mild Bleeding Controlled with: Compression and gauze Patient tolerated procedure: Patient tolerated procedure well Post-Debridement Measurements and Additional Note: Post-Debridement Measurements/Treatment WC - Nurse 1 - General Ulcer Assessment Start: 11/27/23 09:45 Freq: Status: Active Protocol: WC.LOWEXDana Activity Type Activity Date Activity User E-sign Co-sign Detail Recorded Client Recorded Date Recorded By Document 11/27/23 09:45 CP [id number] 11/27/23 10:01 CP Document 12/05/23 09:00 KW [id number] 12/05/23 09:07 KW Document 12/12/23 10:56 KW [id number] 12/12/23 11:09 KW Document 12/19/23 08:41 KW [id number] 12/19/23 08:57 KW 11/27/23 12/05/23 12/12/23 09:45 09:00 10:56 WC - Today's Visit Information Type of service Follow-up Visit Follow-up Visit Follow-up Visit (Physician/ALODIZE 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 (Physician/ALODIZE 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 (Physician/ALODIZE 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 ) ) ) Arrival Mode Ambulatory Ambulatory Ambulatory Accompanied by Patient Identification Verified (Name & Yes Yes Yes ) Patient Requires Transmission-Based No Precautions Height and Weight Body Mass Index (BMI) 36.9 36.9 36.9 BMI Classification Obese Obese Obese Vital Signs Temperature (97.8 F-99.1 F) 98.3 F 97.5 F L 97.1 F L Temperature Source Temporal Temporal Temporal Pulse Rate (60-100) 91 84 89 Pulse Location Monitor Monitor Monitor Respiratory Rate (12-18) 16 18 18 Respiratory rate source Observation Observation Observation Oxygen Delivery Method Room Air Room Air Blood Pressure (90/60-120/80) 144/79 H 148/86 H 150/97 H Blood Pressure Mean (mm Hg) 100 106 114 Source Monitor Monitor Monitor Position Sitting Sitting Sitting Blood Pressure Location Left Arm Left Arm Right Arm History Since Last Visit- (Skip if this is Patient's initial visit) Have you changed medications since your No No No last visit? Any new allergies or adverse reactions No No No Had a fall/change in ADL's that may No No No increase risk of falls Signs or symptoms of abuse and/or No No No neglect since last visit Have you been in the hospital since your No No No last visit? Has dressing in place as prescribed Yes Yes Yes Has compression in place as prescribed Yes N/A N/A Has offloadiing in place as prescribed N/A N/A N/A Experienced any changes in pain level or No No No management Left Footwear Regular Shoe Regular Shoe Right Footwear Regular Shoe Regular Shoe Pain Scale: 0-10 Numeric Is Patient Pain Free? Yes Yes Yes 12/19/23 08:41 WC - Today's Visit Information Type of service Follow-up Visit (Physician/ALODIZE 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 ) Arrival Mode Ambulatory Accompanied by Patient Identification Verified (Name & Yes ) Patient Requires Transmission-Based Precautions Height and Weight Body Mass Index (BMI) 36.9 BMI Classification Obese Vital Signs Temperature (97.8 F-99.1 F) 96.5 F L Temperature Source Temporal Pulse Rate (60-100) 77 Pulse Location Monitor Respiratory Rate (12-18) 18 Respiratory rate source Observation Oxygen Delivery Method Room Air Blood Pressure (90/60-120/80) 155/81 H Blood Pressure Mean (mm Hg) 105 Source Monitor Position Semi-Fowlers Blood Pressure Location Left Arm History Since Last Visit- (Skip if this is Patient's initial visit) Have you changed medications since your No last visit? Any new allergies or adverse reactions No Had a fall/change in ADL's that may No increase risk of falls Signs or symptoms of abuse and/or No neglect since last visit Have you been in the hospital since your No last visit? Has dressing in place as prescribed Yes Has compression in place as prescribed N/A Has offloadiing in place as prescribed N/A Experienced any changes in pain level or No management Left Footwear Regular Shoe Right Footwear Regular Shoe Pain Scale: 0-10 Numeric Is Patient Pain Free? Yes - Nurse 1 - General Ulcer Measurement Start: 11/27/23 09:45 Freq: Status: Active Protocol: Activity Type Activity Date Activity User E-sign Co-sign Detail Recorded Client Recorded Date Recorded By Document 11/27/23 09:45 CP [id number] 11/27/23 10:01 CP Document 12/05/23 09:00 KW [id number] 12/05/23 09:07 KW Document 12/12/23 10:56 KW [id number] 12/12/23 11:09 KW Document 12/19/23 08:41 KW [id number] 12/19/23 08:57 KW 11/27/23 12/05/23 12/12/23 09:45 09:00 10:56 Wound Center Nurse 1 #6 lateral inferior abd -Current Size (cm) - Length 0.4 0.1 0.3 -Current Size (cm) - Width 0.6 0.4 1.1 -Current Size (cm) - Depth 2.5 0.6 1.2 -Total Square Cm 0.24 0.04 0.33 -Date of Last Picture (Recall this 11/27/23 12/12/23 field) -Tunneling Yes Yes -Tunneling Position (O'clock) 9 9 -Tunneling Distance (cm) 2 2.1 -Exudate Amt Small Medium Large -Exudate Type Serosanguineous Serosanguineous Serosanguineous -Wound Margin Flat & Intact Distinct, Distinct, Outline Outline Attached Attached -Granulation Amt Large (67-100%) Large (67-100%) Large (67-100%) -Granulation Quality Red Red Red -Slough/Fibrin No -Texture (Matilde-wound Skin Appearance) No Abnormality Assessed Assessed -Moisture (Matilde-wound Skin Appearance) No Abnormality Assessed Assessed -Color (Matilde-wound Skin Appearance) No Abnormality Assessed Assessed -Temperature (Matilde-wound Skin No Abnormality No Abnormality No Abnormality Appearance) (Pt Warm) (Pt Warm) (Pt Warm) -Tenderness on Palpation (Matilde-wound No No No Skin Appearance) -Ulcer Cleansing Rinsed/ Rinsed/ Rinsed/ Irrigated with Irrigated with Irrigated with Saline Saline Saline -Foul Odor after Cleansing No No No -Anesthetic Used 4% Lidocaine 4% Lidocaine 4% Lidocaine Solution Solution Solution 4-ABDOMEN INFERIOR -Current Size (cm) - Length 5.5 5.2 5 -Current Size (cm) - Width 3 3 3.2 -Current Size (cm) - Depth 0.2 0.1 0.1 -Total Square Cm 16.5 15.6 16.0 -Date of Last Picture (Recall this 11/27/23 12/12/23 field) -Undermining/Tunneling -Undermining/Tunneling Starts (O'clock ) -Undermining/Tunneling Ends (O'clock) -Maximum Distance (cm) -Exudate Amt Small Small Small -Exudate Type Serosanguineous Serosanguineous Serosanguineous -Wound Margin Flat & Intact Distinct, Distinct, Outline Outline Attached Attached -Granulation Amt Large (67-100%) Large (67-100%) Large (67-100%) -Granulation Quality Red [place],Red [place],Red -Necrosis Amt None Present (0 %) -Texture (Matilde-wound Skin Appearance) No Abnormality Assessed Assessed, Scarring -Moisture (Matilde-wound Skin Appearance) No Abnormality Assessed Assessed,Dry/ Scaly -Color (Matilde-wound Skin Appearance) No Abnormality Assessed Assessed -Temperature (Matilde-wound Skin No Abnormality No Abnormality No Abnormality Appearance) (Pt Warm) (Pt Warm) (Pt Warm) -Tenderness on Palpation (Matilde-wound No No No Skin Appearance) -Ulcer Cleansing Rinsed/ Rinsed/ Rinsed/ Irrigated with Irrigated with Irrigated with Saline Saline Saline -Foul Odor after Cleansing No No No -Anesthetic Used 4% Lidocaine 4% Lidocaine 4% Lidocaine Solution Solution Solution 3-ABDOMEN SUPERIOR -Current Size (cm) - Length 4.5 4.6 4.5 -Current Size (cm) - Width 3.4 4.5 4.4 -Current Size (cm) - Depth 0.2 0.2 0.1 -Total Square Cm 15.30 20.70 19.80 -Date of Last Picture (Recall this 11/27/23 12/12/23 field) -Exudate Amt Small Small Small -Exudate Type Serosanguineous Serosanguineous Serosanguineous -Wound Margin Flat & Intact Distinct, Distinct, Outline Outline Attached Attached -Granulation Amt Large (67-100%) Large (67-100%) Medium (34-66%) -Granulation Quality Red [place],Red [place] -Slough/Fibrin No -Necrosis Amt Small (1-33%) Medium (34-66%) -Necrotic Tissue Type Adherent Slough Adherent Slough -Texture (Matilde-wound Skin Appearance) No Abnormality Assessed Assessed, Scarring -Moisture (Matilde-wound Skin Appearance) No Abnormality Assessed Assessed,Dry/ Scaly -Color (Matilde-wound Skin Appearance) No Abnormality Assessed Assessed -Temperature (Matilde-wound Skin No Abnormality No Abnormality No Abnormality Appearance) (Pt Warm) (Pt Warm) (Pt Warm) -Tenderness on Palpation (Matilde-wound Yes No No Skin Appearance) -Ulcer Cleansing Rinsed/ Rinsed/ Rinsed/ Irrigated with Irrigated with Irrigated with Saline Saline Saline -Foul Odor after Cleansing No No -Anesthetic Used 4% Lidocaine 4% Lidocaine 4% Lidocaine Solution Solution Solution 12/19/23 08:41 Wound Center Nurse 1 #6 lateral inferior abd -Current Size (cm) - Length 5.2 -Current Size (cm) - Width 3 -Current Size (cm) - Depth 0.1 -Total Square Cm 15.6 -Date of Last Picture (Recall this 12/19/23 field) -Tunneling -Tunneling Position (O'clock) -Tunneling Distance (cm) -Exudate Amt Medium -Exudate Type Serosanguineous -Wound Margin Distinct, Outline Attached -Granulation Amt Large (67-100%) -Granulation Quality Red -Slough/Fibrin -Texture (Matilde-wound Skin Appearance) Assessed -Moisture (Matilde-wound Skin Appearance) Assessed -Color (Matilde-wound Skin Appearance) Assessed -Temperature (Matilde-wound Skin No Abnormality Appearance) (Pt Warm) -Tenderness on Palpation (Matilde-wound No Skin Appearance) -Ulcer Cleansing Soap and Water -Foul Odor after Cleansing No -Anesthetic Used 5% Lidocaine Gel 4-ABDOMEN INFERIOR -Current Size (cm) - Length 0.5 -Current Size (cm) - Width 1.3 -Current Size (cm) - Depth 1.5 -Total Square Cm 0.65 -Date of Last Picture (Recall this 12/19/23 field) -Undermining/Tunneling Yes -Undermining/Tunneling Starts (O'clock 8 ) -Undermining/Tunneling Ends (O'clock) 9 -Maximum Distance (cm) 1.4 -Exudate Amt Medium -Exudate Type Serosanguineous -Wound Margin Distinct, Outline Attached -Granulation Amt Large (67-100%) -Granulation Quality Red -Necrosis Amt -Texture (Matilde-wound Skin Appearance) Assessed -Moisture (Matilde-wound Skin Appearance) Assessed -Color (Matilde-wound Skin Appearance) Assessed -Temperature (Matilde-wound Skin No Abnormality Appearance) (Pt Warm) -Tenderness on Palpation (Matilde-wound No Skin Appearance) -Ulcer Cleansing Soap and Water -Foul Odor after Cleansing No -Anesthetic Used 5% Lidocaine Gel 3-ABDOMEN SUPERIOR -Current Size (cm) - Length 4.3 -Current Size (cm) - Width 4 -Current Size (cm) - Depth 0.3 -Total Square Cm 17.2 -Date of Last Picture (Recall this 12/19/23 field) -Exudate Amt Medium -Exudate Type Serosanguineous -Wound Margin Distinct, Outline Attached -Granulation Amt Large (67-100%) -Granulation Quality Red -Slough/Fibrin -Necrosis Amt -Necrotic Tissue Type -Texture (Matilde-wound Skin Appearance) Assessed -Moisture (Matilde-wound Skin Appearance) Assessed -Color (Matilde-wound Skin Appearance) Assessed -Temperature (Matilde-wound Skin No Abnormality Appearance) (Pt Warm) -Tenderness on Palpation (Matilde-wound No Skin Appearance) -Ulcer Cleansing Soap and Water -Foul Odor after Cleansing No -Anesthetic Used 5% Lidocaine Gel WC - Nurse 2 - General Ulcer CM Notes Start: 11/27/23 09:45 Freq: Status: Active Protocol: Activity Type Activity Date Activity User E-sign Co-sign Detail Recorded Client Recorded Date Recorded By Document 11/27/23 10:08 [facility] [id number] 11/27/23 10:22 [facility] Document 12/05/23 09:16 GM [id number] 12/05/23 09:28 GM Document 12/12/23 11:21 GM [id number] 12/12/23 11:30 GM Edit Result 12/12/23 11:21 GM (1) [id number] 12/13/23 10:00 GM Document 12/19/23 09:23 GM [id number] 12/19/23 09:37 GM (1) 3-ABDOMEN SUPERIOR - Debridement, SubQ, ea addt'l 20sq cm => 2 or part thereof 11/27/23 12/05/23 12/12/23 10:08 09:16 11:21 Wound Center Nurse 2 #6 lateral inferior abd -Time 10: 09:16 11:21 -Correct Patient Yes Yes Yes -Correct Side, Site, Position Yes Yes Yes -Correct Procedure Yes Yes -Procedure Performed Yes Yes -Type of Procedure Debridement Debridement -Clinical Debridement Subcutaneous Subcutaneous -Tissue Removed Subcutaneous Subcutaneous -Post Debridement (cm) - Length 0.3 0.2 -Post Debridement (cm) - Width 0.5 0.4 -Post Debridement (cm) - Depth 1 0.6 -Total Square (Post) (cm) 0.15 0.08 -Area of Debridement (cm) - Length 0.3 0.2 -Area of Debridement (cm) - Width 0.5 0.4 -Total Square (Area) (cm) 0.15 0.08 -Tunneling Yes Yes No -Tunneling Position (O'clock) 10 10 -Tunneling Distance (cm) 2.5 2.8 -Undermining/Tunneling No No No -Circular Undermining No No No -Wound/Ulcer Outcome Not Healed Not Healed Not Healed -Ulcer Cleansing Rinsed/ Rinsed/ Rinsed/ Irrigated with Irrigated with Irrigated with Saline Saline Saline -Foul Odor after Cleansing No No No -Bioengineered Tissue No No No -Bleeding Controlled with Pressure Pressure -Treatment Response Procedure Procedure Tolerated Well Tolerated Well -Debridement - Subq, 1st 20sq cm Yes No -Debridement, SubQ, ea addt'l 20sq cm 1 or part thereof 4-ABDOMEN INFERIOR -Time 10:10 09:17 11:21 -Correct Patient Yes Yes Yes -Correct Side, Site, Position Yes Yes Yes -Correct Procedure Yes Yes Yes -Procedure Performed Yes Yes Yes -Type of Procedure Debridement Debridement Debridement -Clinical Debridement Subcutaneous Subcutaneous Subcutaneous -Tissue Removed Subcutaneous Subcutaneous Subcutaneous -Post Debridement (cm) - Length 5.5 5.0 5.0 -Post Debridement (cm) - Width 3.5 3.6 3.7 -Post Debridement (cm) - Depth 0.2 0.1 0.1 -Total Square (Post) (cm) 19.25 18.00 18.50 -Area of Debridement (cm) - Length 5.5 5.0 5.0 -Area of Debridement (cm) - Width 3.5 3.6 3.7 -Total Square (Area) (cm) 19.25 18.00 18.50 -Tunneling No No No -Undermining/Tunneling No No No -Circular Undermining No No No -Wound/Ulcer Outcome Not Healed Not Healed Not Healed -Ulcer Cleansing Rinsed/ Rinsed/ Rinsed/ Irrigated with Irrigated with Irrigated with Saline Saline Saline -Foul Odor after Cleansing No No No -Bioengineered Tissue No No -Bleeding Controlled with Pressure Pressure -Treatment Response Procedure Procedure Procedure Tolerated Well Tolerated Well Tolerated Well -Debridement - Subq, 1st 20sq cm No No No 3-ABDOMEN SUPERIOR -Time 10:10 09:18 11:21 -Correct Patient Yes Yes Yes -Correct Side, Site, Position Yes Yes Yes -Correct Procedure Yes Yes Yes -Procedure Performed Yes Yes Yes -Type of Procedure Debridement Debridement Debridement -Clinical Debridement Subcutaneous Subcutaneous Subcutaneous -Tissue Removed Subcutaneous Subcutaneous Subcutaneous -Post Debridement (cm) - Length 4.5 4.5 4.7 -Post Debridement (cm) - Width 4 4.5 4.7 -Post Debridement (cm) - Depth 0.3 0.7 0.4 -Total Square (Post) (cm) 18.0 20.25 22.09 -Area of Debridement (cm) - Length 4.5 4.5 4.7 -Area of Debridement (cm) - Width 4 4.5 4.7 -Total Square (Area) (cm) 18.0 20.25 22.09 -Tunneling No No No -Undermining/Tunneling No No No -Circular Undermining No No No -Wound/Ulcer Outcome Not Healed Not Healed Not Healed -Ulcer Cleansing Rinsed/ Rinsed/ Rinsed/ Irrigated with Irrigated with Irrigated with Saline Saline Saline -Foul Odor after Cleansing No No No -Bioengineered Tissue No No No -Bleeding Controlled with Pressure Pressure -Treatment Response Procedure Procedure Procedure Tolerated Well Tolerated Well Tolerated Well -Debridement - Subq, 1st 20sq cm No Yes Yes -Debridement, SubQ, ea addt'l 20sq cm 1 2 or part thereof Pain Scale: 0-10 Numeric Is Patient Pain Free? Yes Yes Yes 12/19/23 09:23 Wound Center Nurse 2 #6 lateral inferior abd -Time 09:24 -Correct Patient Yes -Correct Side, Site, Position Yes -Correct Procedure Yes -Procedure Performed Yes -Type of Procedure Debridement -Clinical Debridement Subcutaneous -Tissue Removed Subcutaneous -Post Debridement (cm) - Length 0.5 -Post Debridement (cm) - Width 1.5 -Post Debridement (cm) - Depth 2.4 -Total Square (Post) (cm) 0.75 -Area of Debridement (cm) - Length 0.5 -Area of Debridement (cm) - Width 1.5 -Total Square (Area) (cm) 0.75 -Tunneling No -Tunneling Position (O'clock) -Tunneling Distance (cm) -Undermining/Tunneling No -Circular Undermining No -Wound/Ulcer Outcome Not Healed -Ulcer Cleansing Not Cleansed -Foul Odor after Cleansing No -Bioengineered Tissue No -Bleeding Controlled with Pressure -Treatment Response Procedure Tolerated Well -Debridement - Subq, 1st 20sq cm No -Debridement, SubQ, ea addt'l 20sq cm or part thereof 4-ABDOMEN INFERIOR -Time 09:25 -Correct Patient Yes -Correct Side, Site, Position Yes -Correct Procedure Yes -Procedure Performed Yes -Type of Procedure Debridement -Clinical Debridement Subcutaneous -Tissue Removed Subcutaneous -Post Debridement (cm) - Length 4.8 -Post Debridement (cm) - Width 3.5 -Post Debridement (cm) - Depth 0.1 -Total Square (Post) (cm) 16.80 -Area of Debridement (cm) - Length 4.8 -Area of Debridement (cm) - Width 3.5 -Total Square (Area) (cm) 16.80 -Tunneling No -Undermining/Tunneling No -Circular Undermining No -Wound/Ulcer Outcome Not Healed -Ulcer Cleansing Rinsed/ Irrigated with Saline -Foul Odor after Cleansing No -Bioengineered Tissue No -Bleeding Controlled with Pressure -Treatment Response Procedure Tolerated Well -Debridement - Subq, 1st 20sq cm No 3-ABDOMEN SUPERIOR -Time 09:25 -Correct Patient Yes -Correct Side, Site, Position Yes -Correct Procedure Yes -Procedure Performed Yes -Type of Procedure Debridement -Clinical Debridement Subcutaneous -Tissue Removed Subcutaneous -Post Debridement (cm) - Length 4.3 -Post Debridement (cm) - Width 4.0 -Post Debridement (cm) - Depth 0.4 -Total Square (Post) (cm) 17.20 -Area of Debridement (cm) - Length 4.3 -Area of Debridement (cm) - Width 4.0 -Total Square (Area) (cm) 17.20 -Tunneling No -Undermining/Tunneling No -Circular Undermining No -Wound/Ulcer Outcome Not Healed -Ulcer Cleansing Rinsed/ Irrigated with Saline -Foul Odor after Cleansing No -Bioengineered Tissue No -Bleeding Controlled with Pressure -Treatment Response Procedure Tolerated Well -Debridement - Subq, 1st 20sq cm Yes -Debridement, SubQ, ea addt'l 20sq cm 1 or part thereof Pain Scale: 0-10 Numeric Is Patient Pain Free? Yes WC - Nurse 3 - General Ulcer D/C NN Start: 11/27/23 09:45 Freq: Status: Active Protocol: Activity Type Activity Date Activity User E-sign Co-sign Detail Recorded Client Recorded Date Recorded By Document 11/27/23 10:37 CP [id number] 11/27/23 10:40 CP Document 12/05/23 09:43 KW [id number] 12/05/23 09:45 KW Document 12/12/23 11:42 KW [id number] 12/12/23 11:44 KW Document 12/19/23 09:39 KW [id number] 12/19/23 09:40 KW 11/27/23 12/05/23 12/12/23 10:37 09:43 11:42 Wound Care Center Nurse 3 #6 lateral inferior abd -Ulcer Cleansing Rinsed/ Rinsed/ Not Cleansed Irrigated with Irrigated with Saline Saline -Foul Odor after Cleansing No No -Primary Dressing Applied Aquacel Extra Aquacel Rope -Other Dressing adaptic abd -Primary Dressing Covered/Secured with Dry Gauze, Secured with Dry Gauze Secured with Tape Tape -Aquacel Extra 1 -Aquacel Rope 1 4-ABDOMEN INFERIOR -Ulcer Cleansing Rinsed/ Rinsed/ Not Cleansed Irrigated with Irrigated with Saline Saline -Foul Odor after Cleansing No No -Primary Dressing Applied Aquacel Extra -Other Dressing adaptic copper wound copper wound drsg; abd dressing sample and abd -Primary Dressing Covered/Secured with Dry Gauze, Secured with Secured with Secured with Tape Tape Tape -Aquacel Extra 0 3-ABDOMEN SUPERIOR -Ulcer Cleansing Rinsed/ Rinsed/ Not Cleansed Irrigated with Irrigated with Saline Saline -Foul Odor after Cleansing No No -Primary Dressing Applied Aquacel Extra -Other Dressing adaptic copper wound copper wound drsg; abd dressing sample and abd -Primary Dressing Covered/Secured with Dry Gauze, Secured with Secured with Secured with Tape Tape Tape -Aquacel Extra 0 Treatment Response Procedure Procedure Tolerated Well Tolerated Well Pain Scale: 0-10 Numeric Is Patient Pain Free? Yes Yes Yes WC - Visit Discharge Discharge Condition Stable Stable Stable Ambulatory Status Ambulatory Ambulatory Ambulatory Transportation Private Auto Private Auto Private Auto Clinical Summary of Care Provided Yes 12/19/23 09:39 Wound Care Center Nurse 3 #6 lateral inferior abd -Ulcer Cleansing -Foul Odor after Cleansing -Primary Dressing Applied -Other Dressing pack with gauze -Primary Dressing Covered/Secured with Dry Gauze -Aquacel Extra -Aquacel Rope 4-ABDOMEN INFERIOR -Ulcer Cleansing -Foul Odor after Cleansing -Primary Dressing Applied -Other Dressing copper dressing -Primary Dressing Covered/Secured with Dry Gauze -Aquacel Extra 3-ABDOMEN SUPERIOR -Ulcer Cleansing -Foul Odor after Cleansing -Primary Dressing Applied -Other Dressing copper dressing -Primary Dressing Covered/Secured with Dry Gauze, Secured with Tape -Aquacel Extra Treatment Response Pain Scale: 0-10 Numeric Is Patient Pain Free? Yes WC - Visit Discharge Discharge Condition Ambulatory Status Transportation Clinical Summary of Care Provided Additional Wound Wound debrided: Abdomen (inferior) Type of Debridement: Excisional debridement Anesthesia Used: 5% Lidocaine Gel Depth: in the subcutaneous layer Percentage of wound debrided: 100 Instrument Used: 7mm curette Tissue Removed: Slough and devitalized tissue Severity: Fat Layer Exposed Amount of bleeding with debridement: Mild Bleeding Controlled with: Compression and gauze Patient tolerated procedure: Patient tolerated procedure well Additional Wound Wound debrided: Abdomen (inferior lateral) Type of Debridement: Excisional debridement Anesthesia Used: 5% Lidocaine Gel Depth: Down to and including healthy tissue and in the subcutaneous layer Percentage of wound debrided: 100 Instrument Used: 5mm curette Tissue Removed: Devitalized tissue Severity: Fat Layer Exposed Amount of bleeding with debridement: Mild Bleeding Controlled with: Pressure Patient tolerated procedure: Patient tolerated procedure well Assessment/Plan Assessment/Plan (1) Non-healing surgical wound: CODE(S): T81.89XA - Other complications of procedures, not elsewhere classified, initial encounter QUALIFIERS: Encounter type: initial encounter Qualified Code(s): T81.89XA - Other complications of procedures, not elsewhere classified, initial encounter (2) Type 2 diabetes mellitus: CODE(S): E11.9 - Type 2 diabetes mellitus without complications QUALIFIERS: 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: without 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 control service representative use Diabetes mellitus complication status: with skin complications Diabetes mellitus complication detail: with other skin complication Qualified Code(s): E11.628 - Type 2 diabetes mellitus with other skin complications (3) History of colostomy reversal: CODE(S): Z98.890 - Other specified postprocedural states (4) Surgical wound breakdown: CODE(S): T81.31XA - Disruption of external operation (surgical) wound, not elsewhere classified, initial encounter QUALIFIERS: Encounter type: initial encounter Qualified Code(s): T81.31XA - Disruption of external operation (surgical) wound, not elsewhere classified, initial encounter PLAN: Plan Debridement done as documented above, procedure was well-tolerated. Continues to show better granulation and also some improvement in wound circumference noted today. As previously stated, had a bedside incision and debridement done by his surgeon to the inferior lateral last week, he states that the drainage is improving. Has been doing dry gauze to it. Has an appointment with his surgeon on the 29 of December. Continue copper dressing to the inferior and superior ulcers/wounds. Apply orange side down ensuring dressing covers the periwound area as well. Moisten lightly and cover with Adaptic and ABD. leave Dressing in place for 3 days. Hydrocortisone to periwound dermatitis. They were advised to moisten very well prior to changing, they voiced understanding. Dry gauze has been recommended by his surgeon to the area of incision and drainage, continue same and may change daily to twice daily as needed. Measurements documented today, will reassess at next visit and if there is no improvement, will switch to Aquacel or copper dressing. Continue optimal diabetes control and dietary protein intake. Most recent A1c said to be 6.3. Continue other chronic wound care management. His questions were answered and he was advised to let us know if he has any further questions or concerns. Follow-up in 1 week. This note was generated with [employer] dictation software. It may contain incorrect words, spelling, and punctuation that were not noted in checking the note before signing.
--- NOTE | 2023-12-20 09:03 | WC ---
PHOTO INF ABD 12/19/23
[2023-12-26 08:17] VITALS: BP 161/88; PULSE 75; RESP 18; TEMP 36.1; BMI 36.9
--- NOTE | 2023-12-26 08:55 | PCM.WC.PN ---
History of Present Illness Date of Service: 12/26/23 Chief Complaint: Non healing surgical wound History of Wound: Mr. Duque is a 62 yo Last seen here over a month ago. He had been discharged due to plan for closure following colostomy reversal. Surgery was uneventful however, less than a week after surgery, he states that his wound breakdown/dehisced. Initially applied Dakin's dressing but subsequently, started a wound VAC. Since starting wound VAC, he states that there has been much better improvement. Currently set at 150 mmHg. History of diabetes mellitus which is well-controlled. He reports good protein intake. He feels well and denies any acute concerns at this time. Progress of Wound: Improving. No new concerns reported. No significant drainage per patient. Objective Data Objective Data Vital Signs: Vital Signs Temp Pulse Resp BP O2 Del Method 96.9 F L 75 18 161/88 H Room Air 12/26/23 08:17 12/26/23 08:17 12/26/23 08:17 12/26/23 08:17 12/26/23 08:17 Oxygen Delivery Method Room Air Weight: 250 lb Body Mass Index (BMI) 36.9 Charges/Coding Procedures Integumentary 111xxx-113xx: [id number] Hannah subq tissue 20 sq cm/< Add On Codes: 37922 Hannah subq tissue add-on (x2 additional square centimeter debrided, please refer to clinical note) Physical Exam Const alert, oriented x3 and no apparent distress General Appearance: cooperative, comfortable and well kempt HEENT normocephalic, head/scalp atraumatic and hearing grossly normal bilaterally Eyes EOMs intact bilaterally General Eye: normal appearance of both eyes Neck full ROM and supple General: normal visual inspection Resp normal respiratory effort Effort and Inspection: able to speak in complete sentences GI non-tender and non-distended Skin Wounds: wounds noted size Size: See clinical note, bed granulating well, margins well approximated, no odor and open Neuro oriented x3, CN's II-XII intact bilaterally, moves all extremities and no focal motor deficits Psych mental status grossly normal, thought process normal and cooperative Debridement Note Debridement Note Wound debrided: Abdomen (superior) Type of Debridement: Excisional debridement Anesthesia Used: 4% Lidocaine Solution Depth: Down to and including healthy tissue and in the subcutaneous layer Percentage of wound debrided: 100 Instrument Used: 5mm curette Tissue Removed: Slough and devitalized tissue Severity: Fat Layer Exposed Amount of bleeding with debridement: Mild Bleeding Controlled with: Pressure Patient tolerated procedure: Patient tolerated procedure well Post-Debridement Measurements and Additional Note: Post-Debridement Measurements/Treatment - Nurse 1 - General Ulcer Assessment Start: 11/27/23 09:45 Freq: Status: Active Protocol: [email or web address] Activity Type Activity Date Activity User E-sign Co-sign Detail Recorded Client Recorded Date Recorded By Document 11/27/23 09:45 CP [id number] 11/27/23 10:01 CP Document 12/05/23 09:00 KW [id number] 12/05/23 09:07 KW Document 12/12/23 10:56 KW [id number] 12/12/23 11:09 KW Document 12/19/23 08:41 KW [id number] 12/19/23 08:57 KW Document 12/26/23 08:17 MT [id number] 12/26/23 08:27 MT 11/27/23 12/05/23 12/12/23 09:45 09:00 10:56 - Today's Visit Information Type of service Follow-up Visit Follow-up Visit Follow-up Visit (Physician/ROUGH ROUNDER MACHINE (Physician/ROUGH ROUNDER MACHINE (Physician/ROUGH ROUNDER MACHINE ) ) ) Arrival Mode Ambulatory Ambulatory Ambulatory Accompanied by Patient Identification Verified (Name & Yes Yes Yes ) Patient Requires Transmission-Based No Precautions Finger Stick Blood Sugar(mg/dl) (if indicated): Blood Sugar Height and Weight Body Mass Index (BMI) 36.9 36.9 36.9 BMI Classification Obese Obese Obese Vital Signs Temperature (97.8 F-99.1 F) 98.3 F 97.5 F L 97.1 F L Temperature Source Temporal Temporal Temporal Pulse Rate (60-100) 91 84 89 Pulse Location Monitor Monitor Monitor Respiratory Rate (12-18) 16 18 18 Respiratory rate source Observation Observation Observation Oxygen Delivery Method Room Air Room Air Blood Pressure (90/60-120/80) 144/79 H 148/86 H 150/97 H Blood Pressure Mean (mm Hg) 100 106 114 Source Monitor Monitor Monitor Position Sitting Sitting Sitting Blood Pressure Location Left Arm Left Arm Right Arm History Since Last Visit- (Skip if this is Patient's initial visit) Have you changed medications since your No No No last visit? Any new allergies or adverse reactions No No No Had a fall/change in ADL's that may No No No increase risk of falls Signs or symptoms of abuse and/or No No No neglect since last visit Have you been in the hospital since your No No No last visit? Has dressing in place as prescribed Yes Yes Yes Has compression in place as prescribed Yes N/A N/A Has offloadiing in place as prescribed N/A N/A N/A Experienced any changes in pain level or No No No management Left Footwear Regular Shoe Regular Shoe Right Footwear Regular Shoe Regular Shoe Pain Scale: 0-10 Numeric Is Patient Pain Free? Yes Yes Yes 12/19/23 12/26/23 08:41 08:17 WC - Today's Visit Information Type of service Follow-up Visit Follow-up Visit (Physician/ROUGH ROUNDER MACHINE (Physician/ROUGH ROUNDER MACHINE ) ) Arrival Mode Ambulatory Ambulatory Accompanied by Patient Identification Verified (Name & Yes Yes ) Patient Requires Transmission-Based Precautions Finger Stick Blood Sugar(mg/dl) (if 147 indicated): Blood Sugar Stated by Patient Height and Weight Body Mass Index (BMI) 36.9 36.9 BMI Classification Obese Obese Vital Signs Temperature (97.8 F-99.1 F) 96.5 F L 96.9 F L Temperature Source Temporal Temporal Pulse Rate (60-100) 77 75 Pulse Location Monitor Monitor Respiratory Rate (12-18) 18 18 Respiratory rate source Observation Observation Oxygen Delivery Method Room Air Room Air Blood Pressure (90/60-120/80) 155/81 H 161/88 H Blood Pressure Mean (mm Hg) 105 112 Source Monitor Monitor Position Semi-Fowlers Sitting Blood Pressure Location Left Arm Right Arm History Since Last Visit- (Skip if this is Patient's initial visit) Have you changed medications since your No last visit? Any new allergies or adverse reactions No Had a fall/change in ADL's that may No increase risk of falls Signs or symptoms of abuse and/or No neglect since last visit Have you been in the hospital since your No last visit? Has dressing in place as prescribed Yes Yes Has compression in place as prescribed N/A Yes Has offloadiing in place as prescribed N/A Yes Experienced any changes in pain level or No Yes management Left Footwear Regular Shoe Regular Shoe Right Footwear Regular Shoe Regular Shoe Pain Scale: 0-10 Numeric Is Patient Pain Free? Yes Yes - Nurse 1 - General Ulcer Measurement Start: 11/27/23 09:45 Freq: Status: Active Protocol: Activity Type Activity Date Activity User E-sign Co-sign Detail Recorded Client Recorded Date Recorded By Document 11/27/23 09:45 CP [id number] 11/27/23 10:01 CP Document 12/05/23 09:00 KW [id number] 12/05/23 09:07 KW Document 12/12/23 10:56 KW [id number] 12/12/23 11:09 KW Document 12/19/23 08:41 KW [id number] 12/19/23 08:57 KW Document 12/26/23 08:17 MT [id number] 12/26/23 08:27 MT 11/27/23 12/05/23 12/12/23 09:45 09:00 10:56 Wound Center Nurse 1 #6 lateral inferior abd -Current Size (cm) - Length 0.4 0.1 0.3 -Current Size (cm) - Width 0.6 0.4 1.1 -Current Size (cm) - Depth 2.5 0.6 1.2 -Total Square Cm 0.24 0.04 0.33 -Date of Last Picture (Recall this 11/27/23 12/12/23 field) -Photo Taken -Tunneling Yes Yes -Tunneling Position (O'clock) 9 9 -Tunneling Distance (cm) 2 2.1 -Undermining/Tunneling -Circular Undermining -Exudate Amt Small Medium Large -Exudate Type Serosanguineous Serosanguineous Serosanguineous -Wound Margin Flat & Intact Distinct, Distinct, Outline Outline Attached Attached -Granulation Amt Large (67-100%) Large (67-100%) Large (67-100%) -Granulation Quality Red Red Red -Slough/Fibrin No -Necrosis Amt -Texture (Matilde-wound Skin Appearance) No Abnormality Assessed Assessed -Moisture (Matilde-wound Skin Appearance) No Abnormality Assessed Assessed -Color (Matilde-wound Skin Appearance) No Abnormality Assessed Assessed -Temperature (Matilde-wound Skin No Abnormality No Abnormality No Abnormality Appearance) (Pt Warm) (Pt Warm) (Pt Warm) -Tenderness on Palpation (Matilde-wound No No No Skin Appearance) -Ulcer Cleansing Rinsed/ Rinsed/ Rinsed/ Irrigated with Irrigated with Irrigated with Saline Saline Saline -Foul Odor after Cleansing No No No -Anesthetic Used 4% Lidocaine 4% Lidocaine 4% Lidocaine Solution Solution Solution 4-ABDOMEN INFERIOR -Current Size (cm) - Length 5.5 5.2 5 -Current Size (cm) - Width 3 3 3.2 -Current Size (cm) - Depth 0.2 0.1 0.1 -Total Square Cm 16.5 15.6 16.0 -Date of Last Picture (Recall this 11/27/23 12/12/23 field) -Undermining/Tunneling -Undermining/Tunneling Starts (O'clock ) -Undermining/Tunneling Ends (O'clock) -Maximum Distance (cm) -Exudate Amt Small Small Small -Exudate Type Serosanguineous Serosanguineous Serosanguineous -Wound Margin Flat & Intact Distinct, Distinct, Outline Outline Attached Attached -Granulation Amt Large (67-100%) Large (67-100%) Large (67-100%) -Granulation Quality Red [place],Red [place],Red -Necrosis Amt None Present (0 %) -Texture (Matilde-wound Skin Appearance) No Abnormality Assessed Assessed, Scarring -Moisture (Matilde-wound Skin Appearance) No Abnormality Assessed Assessed,Dry/ Scaly -Color (Matilde-wound Skin Appearance) No Abnormality Assessed Assessed -Temperature (Matilde-wound Skin No Abnormality No Abnormality No Abnormality Appearance) (Pt Warm) (Pt Warm) (Pt Warm) -Tenderness on Palpation (Matilde-wound No No No Skin Appearance) -Ulcer Cleansing Rinsed/ Rinsed/ Rinsed/ Irrigated with Irrigated with Irrigated with Saline Saline Saline -Foul Odor after Cleansing No No No -Anesthetic Used 4% Lidocaine 4% Lidocaine 4% Lidocaine Solution Solution Solution 3-ABDOMEN SUPERIOR -Current Size (cm) - Length 4.5 4.6 4.5 -Current Size (cm) - Width 3.4 4.5 4.4 -Current Size (cm) - Depth 0.2 0.2 0.1 -Total Square Cm 15.30 20.70 19.80 -Date of Last Picture (Recall this 11/27/23 12/12/23 field) -Exudate Amt Small Small Small -Exudate Type Serosanguineous Serosanguineous Serosanguineous -Wound Margin Flat & Intact Distinct, Distinct, Outline Outline Attached Attached -Granulation Amt Large (67-100%) Large (67-100%) Medium (34-66%) -Granulation Quality Red [place],Red [place] -Slough/Fibrin No -Necrosis Amt Small (1-33%) Medium (34-66%) -Necrotic Tissue Type Adherent Slough Adherent Slough -Texture (Matilde-wound Skin Appearance) No Abnormality Assessed Assessed, Scarring -Moisture (Matilde-wound Skin Appearance) No Abnormality Assessed Assessed,Dry/ Scaly -Color (Matilde-wound Skin Appearance) No Abnormality Assessed Assessed -Temperature (Matilde-wound Skin No Abnormality No Abnormality No Abnormality Appearance) (Pt Warm) (Pt Warm) (Pt Warm) -Tenderness on Palpation (Matilde-wound Yes No No Skin Appearance) -Ulcer Cleansing Rinsed/ Rinsed/ Rinsed/ Irrigated with Irrigated with Irrigated with Saline Saline Saline -Foul Odor after Cleansing No No -Anesthetic Used 4% Lidocaine 4% Lidocaine 4% Lidocaine Solution Solution Solution Lower Limb Edema Present 12/19/23 12/26/23 08:41 08:17 Wound Center Nurse 1 #6 lateral inferior abd -Current Size (cm) - Length 5.2 0.7 -Current Size (cm) - Width 3 1.5 -Current Size (cm) - Depth 0.1 1.0 -Total Square Cm 15.6 1.05 -Date of Last Picture (Recall this 12/19/23 field) -Photo Taken No -Tunneling No -Tunneling Position (O'clock) -Tunneling Distance (cm) -Undermining/Tunneling No -Circular Undermining No -Exudate Amt Medium Small -Exudate Type Serosanguineous Serosanguineous -Wound Margin Distinct, Flat & Intact Outline Attached -Granulation Amt Large (67-100%) Large (67-100%) -Granulation Quality Red Pale,[place] -Slough/Fibrin -Necrosis Amt None Present (0 %) -Texture (Matilde-wound Skin Appearance) Assessed Assessed -Moisture (Matilde-wound Skin Appearance) Assessed Assessed -Color (Matilde-wound Skin Appearance) Assessed Assessed -Temperature (Matilde-wound Skin No Abnormality No Abnormality Appearance) (Pt Warm) (Pt Warm) -Tenderness on Palpation (Matilde-wound No No Skin Appearance) -Ulcer Cleansing Soap and Water Rinsed/ Irrigated with Saline -Foul Odor after Cleansing No No -Anesthetic Used 5% Lidocaine 4% Lidocaine Gel Solution 4-ABDOMEN INFERIOR -Current Size (cm) - Length 0.5 4.5 -Current Size (cm) - Width 1.3 3.0 -Current Size (cm) - Depth 1.5 0.1 -Total Square Cm 0.65 13.50 -Date of Last Picture (Recall this 12/19/23 field) -Undermining/Tunneling Yes -Undermining/Tunneling Starts (O'clock 8 ) -Undermining/Tunneling Ends (O'clock) 9 -Maximum Distance (cm) 1.4 -Exudate Amt Medium None Present -Exudate Type Serosanguineous -Wound Margin Distinct, Flat & Intact Outline Attached -Granulation Amt Large (67-100%) Large (67-100%) -Granulation Quality Red Pale,[place] -Necrosis Amt None Present (0 %) -Texture (Matilde-wound Skin Appearance) Assessed Assessed -Moisture (Matilde-wound Skin Appearance) Assessed Assessed -Color (Matilde-wound Skin Appearance) Assessed Assessed -Temperature (Matilde-wound Skin No Abnormality No Abnormality Appearance) (Pt Warm) (Pt Warm) -Tenderness on Palpation (Matilde-wound No No Skin Appearance) -Ulcer Cleansing Soap and Water Soap and Water -Foul Odor after Cleansing No No -Anesthetic Used 5% Lidocaine 4% Lidocaine Gel Solution 3-ABDOMEN SUPERIOR -Current Size (cm) - Length 4.3 4.3 -Current Size (cm) - Width 4 3.8 -Current Size (cm) - Depth 0.3 0.1 -Total Square Cm 17.2 16.34 -Date of Last Picture (Recall this 12/19/23 field) -Exudate Amt Medium Small -Exudate Type Serosanguineous Serosanguineous -Wound Margin Distinct, Flat & Intact Outline Attached -Granulation Amt Large (67-100%) Large (67-100%) -Granulation Quality Red Pale,[place] -Slough/Fibrin No -Necrosis Amt -Necrotic Tissue Type -Texture (Matilde-wound Skin Appearance) Assessed Assessed -Moisture (Matilde-wound Skin Appearance) Assessed Assessed -Color (Matilde-wound Skin Appearance) Assessed Assessed -Temperature (Matilde-wound Skin No Abnormality No Abnormality Appearance) (Pt Warm) (Pt Warm) -Tenderness on Palpation (Matilde-wound No No Skin Appearance) -Ulcer Cleansing Soap and Water Rinsed/ Irrigated with Saline -Foul Odor after Cleansing No -Anesthetic Used 5% Lidocaine 4% Lidocaine Gel Solution Lower Limb Edema Present NA WC - Nurse 2 - General Ulcer CM Notes Start: 11/27/23 09:45 Freq: Status: Active Protocol: Activity Type Activity Date Activity User E-sign Co-sign Detail Recorded Client Recorded Date Recorded By Document 11/27/23 10:08 BMF [id number] 11/27/23 10:22 BMF Document 12/05/23 09:16 GM [id number] 12/05/23 09:28 GM Document 12/12/23 11:21 GM [id number] 12/12/23 11:30 GM Edit Result 12/12/23 11:21 GM (1) [id number] 12/13/23 10:00 GM Document 12/19/23 09:23 GM [id number] 12/19/23 09:37 GM Document 12/26/23 08:37 GM [id number] 12/26/23 08:48 GM (1) 3-ABDOMEN SUPERIOR - Debridement, SubQ, ea addt'l 20sq cm => 2 or part thereof 11/27/23 12/05/23 12/12/23 10:08 09:16 11:21 Wound Center Nurse 2 #6 lateral inferior abd -Time 10:09 09:16 11:21 -Correct Patient Yes Yes Yes -Correct Side, Site, Position Yes Yes Yes -Correct Procedure Yes Yes -Procedure Performed Yes Yes -Type of Procedure Debridement Debridement -Clinical Debridement Subcutaneous Subcutaneous -Tissue Removed Subcutaneous Subcutaneous -Post Debridement (cm) - Length 0.3 0.2 -Post Debridement (cm) - Width 0.5 0.4 -Post Debridement (cm) - Depth 1 0.6 -Total Square (Post) (cm) 0.15 0.08 -Area of Debridement (cm) - Length 0.3 0.2 -Area of Debridement (cm) - Width 0.5 0.4 -Total Square (Area) (cm) 0.15 0.08 -Tunneling Yes Yes No -Tunneling Position (O'clock) 10 10 -Tunneling Distance (cm) 2.5 2.8 -Undermining/Tunneling No No No -Circular Undermining No No No -Wound/Ulcer Outcome Not Healed Not Healed Not Healed -Ulcer Cleansing Rinsed/ Rinsed/ Rinsed/ Irrigated with Irrigated with Irrigated with Saline Saline Saline -Foul Odor after Cleansing No No No -Bioengineered Tissue No No No -Bleeding Controlled with Pressure Pressure -Treatment Response Procedure Procedure Tolerated Well Tolerated Well -Debridement - Subq, 1st 20sq cm Yes No -Debridement, SubQ, ea addt'l 20sq cm 1 or part thereof 4-ABDOMEN INFERIOR -Time 10:10 09:17 11:21 -Correct Patient Yes Yes Yes -Correct Side, Site, Position Yes Yes Yes -Correct Procedure Yes Yes Yes -Procedure Performed Yes Yes Yes -Type of Procedure Debridement Debridement Debridement -Clinical Debridement Subcutaneous Subcutaneous Subcutaneous -Tissue Removed Subcutaneous Subcutaneous Subcutaneous -Post Debridement (cm) - Length 5.5 5.0 5.0 -Post Debridement (cm) - Width 3.5 3.6 3.7 -Post Debridement (cm) - Depth 0.2 0.1 0.1 -Total Square (Post) (cm) 19.25 18.00 18.50 -Area of Debridement (cm) - Length 5.5 5.0 5.0 -Area of Debridement (cm) - Width 3.5 3.6 3.7 -Total Square (Area) (cm) 19.25 18.00 18.50 -Tunneling No No No -Undermining/Tunneling No No No -Circular Undermining No No No -Wound/Ulcer Outcome Not Healed Not Healed Not Healed -Ulcer Cleansing Rinsed/ Rinsed/ Rinsed/ Irrigated with Irrigated with Irrigated with Saline Saline Saline -Foul Odor after Cleansing No No No -Bioengineered Tissue No No -Bleeding Controlled with Pressure Pressure -Treatment Response Procedure Procedure Procedure Tolerated Well Tolerated Well Tolerated Well -Debridement - Subq, 1st 20sq cm No No No 3-ABDOMEN SUPERIOR -Time 10: 09:18 11:21 -Correct Patient Yes Yes Yes -Correct Side, Site, Position Yes Yes Yes -Correct Procedure Yes Yes Yes -Procedure Performed Yes Yes Yes -Type of Procedure Debridement Debridement Debridement -Clinical Debridement Subcutaneous Subcutaneous Subcutaneous -Tissue Removed Subcutaneous Subcutaneous Subcutaneous -Post Debridement (cm) - Length 4.5 4.5 4.7 -Post Debridement (cm) - Width 4 4.5 4.7 -Post Debridement (cm) - Depth 0.3 0.7 0.4 -Total Square (Post) (cm) 18.0 20.25 22.09 -Area of Debridement (cm) - Length 4.5 4.5 4.7 -Area of Debridement (cm) - Width 4 4.5 4.7 -Total Square (Area) (cm) 18.0 20.25 22.09 -Tunneling No No No -Undermining/Tunneling No No No -Circular Undermining No No No -Wound/Ulcer Outcome Not Healed Not Healed Not Healed -Ulcer Cleansing Rinsed/ Rinsed/ Rinsed/ Irrigated with Irrigated with Irrigated with Saline Saline Saline -Foul Odor after Cleansing No No No -Bioengineered Tissue No No No -Bleeding Controlled with Pressure Pressure -Treatment Response Procedure Procedure Procedure Tolerated Well Tolerated Well Tolerated Well -Debridement - Subq, 1st 20sq cm No Yes Yes -Debridement, SubQ, ea addt'l 20sq cm 1 2 or part thereof Pain Scale: 0-10 Numeric Is Patient Pain Free? Yes Yes Yes 12/19/23 12/26/23 09:23 08:37 Wound Center Nurse 2 #6 lateral inferior abd -Time 09:24 08:37 -Correct Patient Yes Yes -Correct Side, Site, Position Yes Yes -Correct Procedure Yes Yes -Procedure Performed Yes Yes -Type of Procedure Debridement Debridement -Clinical Debridement Subcutaneous Subcutaneous -Tissue Removed Subcutaneous Subcutaneous -Post Debridement (cm) - Length 0.5 0.6 -Post Debridement (cm) - Width 1.5 1.4 -Post Debridement (cm) - Depth 2.4 1.5 -Total Square (Post) (cm) 0.75 0.84 -Area of Debridement (cm) - Length 0.5 0.6 -Area of Debridement (cm) - Width 1.5 1.4 -Total Square (Area) (cm) 0.75 0.84 -Tunneling No No -Tunneling Position (O'clock) -Tunneling Distance (cm) -Undermining/Tunneling No No -Circular Undermining No No -Wound/Ulcer Outcome Not Healed Not Healed -Ulcer Cleansing Not Cleansed Rinsed/ Irrigated with Saline -Foul Odor after Cleansing No No -Bioengineered Tissue No No -Bleeding Controlled with Pressure Pressure -Treatment Response Procedure Procedure Tolerated Well Tolerated Well -Debridement - Subq, 1st 20sq cm No No -Debridement, SubQ, ea addt'l 20sq cm or part thereof 4-ABDOMEN INFERIOR -Time 09:25 08:37 -Correct Patient Yes Yes -Correct Side, Site, Position Yes Yes -Correct Procedure Yes Yes -Procedure Performed Yes Yes -Type of Procedure Debridement Debridement -Clinical Debridement Subcutaneous Subcutaneous -Tissue Removed Subcutaneous Subcutaneous -Post Debridement (cm) - Length 4.8 4.3 -Post Debridement (cm) - Width 3.5 2.7 -Post Debridement (cm) - Depth 0.1 0.1 -Total Square (Post) (cm) 16.80 11.61 -Area of Debridement (cm) - Length 4.8 4.3 -Area of Debridement (cm) - Width 3.5 2.7 -Total Square (Area) (cm) 16.80 11.61 -Tunneling No No -Undermining/Tunneling No No -Circular Undermining No No -Wound/Ulcer Outcome Not Healed Not Healed -Ulcer Cleansing Rinsed/ Rinsed/ Irrigated with Irrigated with Saline Saline -Foul Odor after Cleansing No No -Bioengineered Tissue No No -Bleeding Controlled with Pressure Pressure -Treatment Response Procedure Procedure Tolerated Well Tolerated Well -Debridement - Subq, 1st 20sq cm No No 3-ABDOMEN SUPERIOR -Time 09:25 08:37 -Correct Patient Yes Yes -Correct Side, Site, Position Yes Yes -Correct Procedure Yes Yes -Procedure Performed Yes Yes -Type of Procedure Debridement Debridement -Clinical Debridement Subcutaneous Subcutaneous -Tissue Removed Subcutaneous Subcutaneous -Post Debridement (cm) - Length 4.3 4.3 -Post Debridement (cm) - Width 4.0 3.4 -Post Debridement (cm) - Depth 0.4 0.2 -Total Square (Post) (cm) 17.20 14.62 -Area of Debridement (cm) - Length 4.3 4.3 -Area of Debridement (cm) - Width 4.0 3.4 -Total Square (Area) (cm) 17.20 14.62 -Tunneling No -Undermining/Tunneling No -Circular Undermining No -Wound/Ulcer Outcome Not Healed Not Healed -Ulcer Cleansing Rinsed/ Rinsed/ Irrigated with Irrigated with Saline Saline -Foul Odor after Cleansing No No -Bioengineered Tissue No No -Bleeding Controlled with Pressure Pressure -Treatment Response Procedure Tolerated Well -Debridement - Subq, 1st 20sq cm Yes Yes -Debridement, SubQ, ea addt'l 20sq cm 1 1 or part thereof Pain Scale: 0-10 Numeric Is Patient Pain Free? Yes Yes WC - Nurse 3 - General Ulcer D/C NN Start: 11/27/23 09:45 Freq: Status: Active Protocol: Activity Type Activity Date Activity User E-sign Co-sign Detail Recorded Client Recorded Date Recorded By Document 11/27/23 10:37 CP [id number] 11/27/23 10:40 CP Document 12/05/23 09:43 KW [id number] 12/05/23 09:45 KW Document 12/12/23 11:42 KW [id number] 12/12/23 11:44 KW Document 12/19/23 09:39 KW [id number] 12/19/23 09:40 KW 11/27/23 12/05/23 12/12/23 10:37 09:43 11:42 Wound Care Center Nurse 3 #6 lateral inferior abd -Ulcer Cleansing Rinsed/ Rinsed/ Not Cleansed Irrigated with Irrigated with Saline Saline -Foul Odor after Cleansing No No -Primary Dressing Applied Aquacel Extra Aquacel Rope -Other Dressing adaptic abd -Primary Dressing Covered/Secured with Dry Gauze, Secured with Dry Gauze Secured with Tape Tape -Aquacel Extra 1 -Aquacel Rope 1 4-ABDOMEN INFERIOR -Ulcer Cleansing Rinsed/ Rinsed/ Not Cleansed Irrigated with Irrigated with Saline Saline -Foul Odor after Cleansing No No -Primary Dressing Applied Aquacel Extra -Other Dressing adaptic copper wound copper wound drsg; abd dressing sample and abd -Primary Dressing Covered/Secured with Dry Gauze, Secured with Secured with Secured with Tape Tape Tape -Aquacel Extra 0 3-ABDOMEN SUPERIOR -Ulcer Cleansing Rinsed/ Rinsed/ Not Cleansed Irrigated with Irrigated with Saline Saline -Foul Odor after Cleansing No No -Primary Dressing Applied Aquacel Extra -Other Dressing adaptic copper wound copper wound drsg; abd dressing sample and abd -Primary Dressing Covered/Secured with Dry Gauze, Secured with Secured with Secured with Tape Tape Tape -Aquacel Extra 0 Treatment Response Procedure Procedure Tolerated Well Tolerated Well Pain Scale: 0-10 Numeric Is Patient Pain Free? Yes Yes Yes WC - Visit Discharge Discharge Condition Stable Stable Stable Ambulatory Status Ambulatory Ambulatory Ambulatory Transportation Private Auto Private Auto Private Auto Clinical Summary of Care Provided Yes 12/19/23 09:39 Wound Care Center Nurse 3 #6 lateral inferior abd -Ulcer Cleansing -Foul Odor after Cleansing -Primary Dressing Applied -Other Dressing pack with gauze -Primary Dressing Covered/Secured with Dry Gauze -Aquacel Extra -Aquacel Rope 4-ABDOMEN INFERIOR -Ulcer Cleansing -Foul Odor after Cleansing -Primary Dressing Applied -Other Dressing copper dressing -Primary Dressing Covered/Secured with Dry Gauze -Aquacel Extra 3-ABDOMEN SUPERIOR -Ulcer Cleansing -Foul Odor after Cleansing -Primary Dressing Applied -Other Dressing copper dressing -Primary Dressing Covered/Secured with Dry Gauze, Secured with Tape -Aquacel Extra Treatment Response Pain Scale: 0-10 Numeric Is Patient Pain Free? Yes WC - Visit Discharge Discharge Condition Ambulatory Status Transportation Clinical Summary of Care Provided Additional Wound Wound debrided: Abdomen (inferior) Type of Debridement: Excisional debridement Anesthesia Used: 4% Lidocaine Solution Depth: Down to and including healthy tissue and in the subcutaneous layer Percentage of wound debrided: 100 Instrument Used: 5mm curette Tissue Removed: Slough and devitalized tissue Severity: Fat Layer Exposed Amount of bleeding with debridement: Mild Bleeding Controlled with: Pressure Patient tolerated procedure: Patient tolerated procedure well Additional Wound Wound debrided: Abdomen (inferior lateral) Type of Debridement: Excisional debridement Anesthesia Used: 4% Lidocaine Solution Depth: Down to and including healthy tissue and in the subcutaneous layer Percentage of wound debrided: 100 Instrument Used: 5mm curette Tissue Removed: Slough and devitalized tissue Severity: Fat Layer Exposed Amount of bleeding with debridement: Mild Bleeding Controlled with: Pressure Patient tolerated procedure: Patient tolerated procedure well Assessment/Plan Assessment/Plan (1) Non-healing surgical wound: CODE(S): T81.89XA - Other complications of procedures, not elsewhere classified, initial encounter QUALIFIERS: Encounter type: initial encounter Qualified Code(s): T81.89XA - Other complications of procedures, not elsewhere classified, initial encounter (2) Type 2 diabetes mellitus: CODE(S): E11.9 - Type 2 diabetes mellitus without complications QUALIFIERS: Diabetes mellitus complication detail: with other skin complication Diabetes mellitus complication status: with skin complications 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 They all continue to show good improvement. No new concerns at this time. Continue copper dressing to the inferior and superior ulcers/wounds. Apply orange side down ensuring dressing covers the periwound area as well. Moisten lightly and cover with Adaptic and ABD. leave dressing in place for 3 days. Hydrocortisone to periwound dermatitis as needed, this has improved. They were advised to moisten very well prior to changing, they voiced understanding. Dry gauze has been recommended by his surgeon to the area of incision and drainage, continue same and may change daily to twice daily as needed. Continue optimal diabetes control and dietary protein intake. Most recent A1c said to be 6.3 next check in February. Continue other chronic wound care management. His questions were answered and he was advised to let us know if he has any further questions or concerns. Follow-up in 1 week. This note was generated with [employer] dictation software. It may contain incorrect words, spelling, and punctuation that were not noted in checking the note before signing.
== END 2023-12-26 23:59 | disposition home or self-care (01) ==
LOC: WC 08:15
PROVIDERS: PCP Internal Medicine; Referring Provider Internal Medicine; Visit Provider Internal Medicine
DX: T81.89XA Other complications of procedures, not elsewhere classified, initial encounter (principal); E11.628 Type 2 diabetes mellitus with other skin complications; Z98.890 Other specified postprocedural states; T81.31XA Disruption of external operation (surgical) wound, not elsewhere classified, initial encounter
CPT/HCPCS: 11042; 11045

== ENCOUNTER 2024-01-16 09:00 | Outpatient (RCR) | payer OTHER, SELFPAY ==
[2023-12-27 00:21] VITALS: BP 143/76; PULSE 84; RESP 16; TEMP 36.6; BMI 36.9
[2024-01-02 08:41] VITALS: BP 154/73; PULSE 74; RESP 18; TEMP 36.2; BMI 36.9
--- NOTE | 2024-01-02 12:22 | PCM.WC.PN ---
History of Present Illness Date of Service: 01/02/24 Chief Complaint: Non healing surgical wound History of Wound: Mr. Duque is a 62 yo Last seen here over a month ago. He had been discharged due to plan for closure following colostomy reversal. Surgery was uneventful however, less than a week after surgery, he states that his wound breakdown/dehisced. Initially applied Dakin's dressing but subsequently, started a wound VAC. Since starting wound VAC, he states that there has been much better improvement. Currently set at 150 mmHg. History of diabetes mellitus which is well-controlled. He reports good protein intake. He feels well and denies any acute concerns at this time. Progress of Wound: No new concerns reported at this time. Improving. Objective Data Objective Data Vital Signs: Vital Signs Temp Pulse Resp BP 97.2 F L 74 18 154/73 H 01/02/24 08:41 01/02/24 08:41 01/02/24 08:41 01/02/24 08:41 Weight: 250 lb Body Mass Index (BMI) 36.9 Charges/Coding Procedures Integumentary 111xxx-113xx: [id number] Hannah subq tissue 20 sq cm/< Add On Codes: 39967 Hannah subq tissue add-on (x1 additional square centimeter debrided, please refer to clinical note) Physical Exam Const alert, oriented x3 and no apparent distress General Appearance: cooperative, comfortable and well kempt HEENT normocephalic, head/scalp atraumatic and hearing grossly normal bilaterally Eyes EOMs intact bilaterally General Eye: normal appearance of both eyes Neck full ROM and supple General: normal visual inspection Resp normal respiratory effort Effort and Inspection: able to speak in complete sentences GI non-tender and non-distended Skin Wounds: wounds noted size Size: See clinical note, bed granulating well, margins well approximated, no odor and open Neuro oriented x3, CN's II-XII intact bilaterally, moves all extremities and no focal motor deficits Psych mental status grossly normal, thought process normal and cooperative Debridement Note Debridement Note Wound debrided: Abdomen (superior) Type of Debridement: Excisional debridement Anesthesia Used: 5% Lidocaine Gel Depth: Down to and including healthy tissue and in the subcutaneous layer Percentage of wound debrided: 100 Instrument Used: 5mm curette Tissue Removed: Slough and devitalized tissue Severity: Fat Layer Exposed Amount of bleeding with debridement: Mild Bleeding Controlled with: Pressure Patient tolerated procedure: Patient tolerated procedure well Post-Debridement Measurements and Additional Note: Post-Debridement Measurements/Treatment WC - Nurse 1 - General Ulcer Assessment Start: 01/02/24 08:41 Freq: Status: Active Protocol: JUSTIN Activity Type Activity Date Activity User E-sign Co-sign Detail Recorded Client Recorded Date Recorded By Document 01/02/24 08:41 ML [id number] 01/02/24 08:56 ML 01/02/24 08:41 WC - Today's Visit Information Type of service 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 ) Arrival Mode Ambulatory Transfer Assistance None Patient Identification Verified (Name & Yes ) Patient Requires Transmission-Based No Precautions Finger Stick Blood Sugar(mg/dl) (if 145 indicated): Blood Sugar Stated by Patient Height and Weight Body Mass Index (BMI) 36.9 BMI Classification Obese Vital Signs Temperature (97.8 F-99.1 F) 97.2 F L Temperature Source Temporal Pulse Rate (60-100) 74 Pulse Location Monitor Respiratory Rate (12-18) 18 Respiratory rate source Observation Blood Pressure (90/60-120/80) 154/73 H Blood Pressure Mean (mm Hg) 100 Source Monitor History Since Last Visit- (Skip if this is Patient's initial visit) Have you changed medications since your No last visit? Any new allergies or adverse reactions No Had a fall/change in ADL's that may No increase risk of falls Signs or symptoms of abuse and/or No neglect since last visit Have you been in the hospital since your No last visit? Has dressing in place as prescribed Yes Has compression in place as prescribed N/A Has offloadiing in place as prescribed N/A Experienced any changes in pain level or No management Pain Scale: 0-10 Numeric Is Patient Pain Free? Yes - Nurse 1 - General Ulcer Measurement Start: 01/02/24 08:41 Freq: Status: Active Protocol: Activity Type Activity Date Activity User E-sign Co-sign Detail Recorded Client Recorded Date Recorded By Document 01/02/24 08:41 ML [id number] 01/02/24 08:56 ML 01/02/24 08:41 Wound Center Nurse 1 #6 lateral inferior abd -Current Size (cm) - Length 0.5 -Current Size (cm) - Width 0.5 -Current Size (cm) - Depth 1 -Total Square Cm 0.25 -Exudate Amt Medium -Exudate Type Serosanguineous -Wound Margin Distinct, Outline Attached -Slough/Fibrin Yes -Necrosis Amt Small (1-33%) -Necrotic Tissue Type Adherent Slough -Texture (Matilde-wound Skin Appearance) Assessed -Moisture (Matilde-wound Skin Appearance) Assessed -Color (Matilde-wound Skin Appearance) Assessed -Temperature (Matilde-wound Skin No Abnormality Appearance) (Pt Warm) -Tenderness on Palpation (Matilde-wound Yes Skin Appearance) -Ulcer Cleansing Soap and Water -Foul Odor after Cleansing No -Anesthetic Used 5% Lidocaine Gel 4-ABDOMEN INFERIOR -Current Size (cm) - Length 3.5 -Current Size (cm) - Width 3.5 -Current Size (cm) - Depth 0.1 -Total Square Cm 12.25 -Exudate Amt Small -Exudate Type Serosanguineous -Wound Margin Distinct, Outline Attached -Granulation Amt Medium (34-66%) -Slough/Fibrin No -Necrosis Amt None Present (0 %) -Necrotic Tissue Type Adherent Slough -Texture (Matilde-wound Skin Appearance) Assessed -Moisture (Matilde-wound Skin Appearance) Assessed -Color (Matilde-wound Skin Appearance) Assessed -Temperature (Matilde-wound Skin No Abnormality Appearance) (Pt Warm) -Tenderness on Palpation (Matilde-wound No Skin Appearance) -Ulcer Cleansing Soap and Water -Foul Odor after Cleansing No -Anesthetic Used 5% Lidocaine Gel 3-ABDOMEN SUPERIOR -Current Size (cm) - Length 4.5 -Current Size (cm) - Width 3 -Current Size (cm) - Depth 0.1 -Total Square Cm 13.5 -Exudate Amt Medium -Exudate Type Serosanguineous -Wound Margin Distinct, Outline Attached -Granulation Amt Medium (34-66%) -Slough/Fibrin No -Necrosis Amt Medium (34-66%) -Necrotic Tissue Type Adherent Slough -Texture (Matilde-wound Skin Appearance) Assessed -Moisture (Matilde-wound Skin Appearance) Assessed -Color (Matilde-wound Skin Appearance) Assessed -Temperature (Matilde-wound Skin No Abnormality Appearance) (Pt Warm) -Tenderness on Palpation (Matilde-wound No Skin Appearance) -Ulcer Cleansing Soap and Water -Foul Odor after Cleansing No -Anesthetic Used 5% Lidocaine Gel WC - Nurse 2 - General Ulcer CM Notes Start: 01/02/24 08:41 Freq: Status: Active Protocol: Activity Type Activity Date Activity User E-sign Co-sign Detail Recorded Client Recorded Date Recorded By Document 01/02/24 09:18 [id number] 01/02/24 09:28 01/02/24 09:18 Wound Center Nurse 2 #6 lateral inferior abd -Time 09:19 -Correct Patient Yes -Correct Side, Site, Position Yes -Correct Procedure Yes -Procedure Performed Yes -Type of Procedure Debridement -Clinical Debridement Subcutaneous -Tissue Removed Subcutaneous -Post Debridement (cm) - Length 0.5 -Post Debridement (cm) - Width 1.0 -Post Debridement (cm) - Depth 1.3 -Total Square (Post) (cm) 0.50 -Area of Debridement (cm) - Length 0.5 -Area of Debridement (cm) - Width 1.0 -Total Square (Area) (cm) 0.50 -Tunneling No -Undermining/Tunneling No -Circular Undermining No -Wound/Ulcer Outcome Not Healed -Ulcer Cleansing Rinsed/ Irrigated with Saline -Foul Odor after Cleansing No -Bioengineered Tissue No -Bleeding Controlled with Pressure -Treatment Response Procedure Tolerated Well -Debridement - Subq, 1st 20sq cm No 4-ABDOMEN INFERIOR -Time 09:19 -Correct Patient Yes -Correct Side, Site, Position Yes -Correct Procedure Yes -Procedure Performed Yes -Type of Procedure Debridement -Clinical Debridement Subcutaneous -Tissue Removed Subcutaneous -Post Debridement (cm) - Length 3.8 -Post Debridement (cm) - Width 2.5 -Post Debridement (cm) - Depth 0.1 -Total Square (Post) (cm) 9.50 -Area of Debridement (cm) - Length 3.8 -Area of Debridement (cm) - Width 2.5 -Total Square (Area) (cm) 9.50 -Tunneling No -Undermining/Tunneling No -Circular Undermining No -Wound/Ulcer Outcome Not Healed -Ulcer Cleansing Rinsed/ Irrigated with Saline -Foul Odor after Cleansing No -Bioengineered Tissue No -Bleeding Controlled with Pressure -Treatment Response Procedure Tolerated Well -Debridement - Subq, 1st 20sq cm No 3-ABDOMEN SUPERIOR -Time 09:20 -Correct Patient Yes -Correct Side, Site, Position Yes -Correct Procedure Yes -Procedure Performed Yes -Type of Procedure Debridement -Clinical Debridement Subcutaneous -Tissue Removed Subcutaneous -Post Debridement (cm) - Length 3.8 -Post Debridement (cm) - Width 3.3 -Post Debridement (cm) - Depth 0.1 -Total Square (Post) (cm) 12.54 -Area of Debridement (cm) - Length 3.8 -Area of Debridement (cm) - Width 3.3 -Total Square (Area) (cm) 12.54 -Tunneling No -Undermining/Tunneling No -Circular Undermining No -Wound/Ulcer Outcome Not Healed -Ulcer Cleansing Rinsed/ Irrigated with Saline -Foul Odor after Cleansing No -Bioengineered Tissue No -Bleeding Controlled with Pressure -Treatment Response Procedure Tolerated Well -Debridement - Subq, 1st 20sq cm Yes -Debridement, SubQ, ea addt'l 20sq cm 1 or part thereof Pain Scale: 0-10 Numeric Is Patient Pain Free? Yes - Nurse 3 - General Ulcer D/C NN Start: 01/02/24 08:41 Freq: Status: Active Protocol: Activity Type Activity Date Activity User E-sign Co-sign Detail Recorded Client Recorded Date Recorded By Document 01/02/24 09:44 [id number] 01/02/24 09:57 KW 01/02/24 09:44 Wound Care Center Nurse 3 #6 lateral inferior abd -Primary Dressing Applied NonAdherent Contact Layer -Other Dressing copper dressing 4-ABDOMEN INFERIOR -Other Dressing copper dressing adapt 3-ABDOMEN SUPERIOR -Other Dressing copper dressing adaptic -Primary Dressing Covered/Secured with Dry Gauze, Secured with Tape Pain Scale: 0-10 Numeric Is Patient Pain Free? Yes Additional Wound Wound debrided: Abdomen (inferior) Type of Debridement: Excisional debridement Anesthesia Used: 5% Lidocaine Gel Depth: Down to and including healthy tissue and - Percentage of wound debrided: 100 Instrument Used: 5mm curette Tissue Removed: Slough and devitalized tissue Severity: Fat Layer Exposed Amount of bleeding with debridement: Mild Bleeding Controlled with: Pressure Patient tolerated procedure: Patient tolerated procedure well Additional Wound Wound debrided: Abdomen (inferior lateral) Type of Debridement: Excisional debridement Anesthesia Used: 5% Lidocaine Gel Depth: Down to and including healthy tissue and in the subcutaneous layer Percentage of wound debrided: 100 Instrument Used: 3mm curette Tissue Removed: Slough and devitalized tissue Severity: Fat Layer Exposed Amount of bleeding with debridement: Mild Bleeding Controlled with: Pressure Patient tolerated procedure: Patient tolerated procedure well Assessment/Plan Assessment/Plan (1) Non-healing surgical wound: CODE(S): T81.89XA - Other complications of procedures, not elsewhere classified, initial encounter QUALIFIERS: Encounter type: initial encounter Qualified Code(s): T81.89XA - Other complications of procedures, not elsewhere classified, initial encounter (2) Type 2 diabetes mellitus: CODE(S): E11.9 - Type 2 diabetes mellitus without complications QUALIFIERS: 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: without mcc use Diabetes mellitus complication status: with skin complications Diabetes mellitus complication detail: with other skin complication Qualified Code(s): E11.628 - Type 2 diabetes mellitus with other skin complications (3) History of colostomy reversal: CODE(S): Z98.890 - Other specified postprocedural states (4) Surgical wound breakdown: CODE(S): T81.31XA - Disruption of external operation (surgical) wound, not elsewhere classified, initial encounter QUALIFIERS: Encounter type: initial encounter Qualified Code(s): T81.31XA - Disruption of external operation (surgical) wound, not elsewhere classified, initial encounter PLAN: Plan Debridement done as documented above, procedure was well-tolerated. All wounds/ulcers continue to show good improvement. No new concerns at this time. Continue copper dressing to the inferior and superior ulcers/wounds. Apply orange side down ensuring dressing covers the periwound area as well. Moisten lightly and cover with Adaptic and ABD. leave dressing in place for 3 days. They were advised to moisten very well prior to changing, they voiced understanding. Continue wet-to-dry to inferior lateral ulcer, had a visit with his primary surgeon on Saturday and no new instructions received. Continue optimal diabetes control and dietary protein intake. Most recent A1c said to be 6.3, next check in February. Continue other chronic wound care management. His questions were answered and he was advised to let us know if he has any further questions or concerns. Follow-up in 1 week. This note was generated with [employer] dictation software. It may contain incorrect words, spelling, and punctuation that were not noted in checking the note before signing.
--- NOTE | 2024-01-06 09:08 | WC ---
PHOTO 01/02/24 ABD
--- NOTE | 2024-01-06 09:10 | WC ---
PHOTO 01/02/24 ABD
[2024-01-09 08:14] VITALS: BP 150/78; PULSE 77; RESP 18; TEMP 36.4; BMI 36.9
--- NOTE | 2024-01-09 09:04 | PCM.WC.PN ---
History of Present Illness Date of Service: 01/09/24 Chief Complaint: Non healing surgical wound History of Wound: Mr. Duque is a 62 yo Last seen here over a month ago. He had been discharged due to plan for closure following colostomy reversal. Surgery was uneventful however, less than a week after surgery, he states that his wound breakdown/dehisced. Initially applied Dakin's dressing but subsequently, started a wound VAC. Since starting wound VAC, he states that there has been much better improvement. Currently set at 150 mmHg. History of diabetes mellitus which is well-controlled. He reports good protein intake. He feels well and denies any acute concerns at this time. Progress of Wound: Superior and inferior abdomen with continued improvement. No significant concerns with drainage. Inferior lateral with no change since last week. Minimal bloody drainage typically with changes. No new concerns reported otherwise. Objective Data Objective Data Vital Signs: Vital Signs Temp Pulse Resp BP O2 Del Method 97.6 F L 77 18 150/78 H Room Air 01/09/24 08:14 01/09/24 08:14 01/09/24 08:14 01/09/24 08:14 01/09/24 08:14 Oxygen Delivery Method Room Air Weight: 250 lb Body Mass Index (BMI) 36.9 Charges/Coding Procedures Integumentary 111xxx-113xx: [id number] Hannah subq tissue 20 sq cm/< Add On Codes: 27763 Hannah subq tissue add-on (x1 additional square centimeter debrided, please refer to clinical notes) Physical Exam Const alert, oriented x3 and no apparent distress General Appearance: cooperative, comfortable and well kempt HEENT normocephalic, head/scalp atraumatic and hearing grossly normal bilaterally Eyes EOMs intact bilaterally General Eye: normal appearance of both eyes Neck full ROM and supple General: normal visual inspection Resp normal respiratory effort Effort and Inspection: able to speak in complete sentences GI non-tender and non-distended Skin Wounds: wounds noted size Size: See clinical note, bed granulating well, margins well approximated, no odor and open Neuro oriented x3, CN's II-XII intact bilaterally, moves all extremities and no focal motor deficits Psych mental status grossly normal, thought process normal and cooperative Debridement Note Debridement Note Wound debrided: Abdomen (superior) Type of Debridement: Excisional debridement Anesthesia Used: 4% Lidocaine Solution Depth: Down to and including healthy tissue Percentage of wound debrided: 100 Instrument Used: 5mm curette Tissue Removed: Slough and devitalized tissue Severity: Fat Layer Exposed Amount of bleeding with debridement: Mild Bleeding Controlled with: Pressure Patient tolerated procedure: Patient tolerated procedure well Post-Debridement Measurements and Additional Note: Post-Debridement Measurements/Treatment WC - Nurse 1 - General Ulcer Assessment Start: 01/02/24 08:41 Freq: Status: Active Protocol: JUSTIN Activity Type Activity Date Activity User E-sign Co-sign Detail Recorded Client Recorded Date Recorded By Document 01/02/24 08:41 ML [id number] 01/02/24 08:56 ML Document 01/09/24 08:14 KW [id number] 01/09/24 08:30 KW 01/02/24 01/09/24 08:41 08:14 WC - Today's Visit Information Type of service Follow-up Visit Follow-up Visit (Physician/B[employer] 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 (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/BODY 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 ) ) Arrival Mode Ambulatory Ambulatory Transfer Assistance None Accompanied by Patient Identification Verified (Name & Yes Yes ) Patient Requires Transmission-Based No Precautions Finger Stick Blood Sugar(mg/dl) (if 145 indicated): Blood Sugar Stated by Patient Height and Weight Body Mass Index (BMI) 36.9 36.9 BMI Classification Obese Obese Vital Signs Temperature (97.8 F-99.1 F) 97.2 F L 97.6 F L Temperature Source Temporal Temporal Pulse Rate (60-100) 74 77 Pulse Location Monitor Monitor Respiratory Rate (12-18) 18 18 Respiratory rate source Observation Observation Oxygen Delivery Method Room Air Blood Pressure (90/60-120/80) 154/73 H 150/78 H Blood Pressure Mean (mm Hg) 100 102 Source Monitor Monitor Position Semi-Fowlers Blood Pressure Location Left Arm History Since Last Visit- (Skip if this is Patient's initial visit) Have you changed medications since your No No last visit? Any new allergies or adverse reactions No No Had a fall/change in ADL's that may No No increase risk of falls Signs or symptoms of abuse and/or No No neglect since last visit Have you been in the hospital since your No No last visit? Has dressing in place as prescribed Yes Yes Has compression in place as prescribed N/A N/A Has offloadiing in place as prescribed N/A N/A Experienced any changes in pain level or No No management Left Footwear Regular Shoe Right Footwear Regular Shoe Pain Scale: 0-10 Numeric Is Patient Pain Free? Yes Yes WC - Nurse 1 - General Ulcer Measurement Start: 01/02/24 08:41 Freq: Status: Active Protocol: Activity Type Activity Date Activity User E-sign Co-sign Detail Recorded Client Recorded Date Recorded By Document 01/02/24 08:41 ML [id number] 01/02/24 08:56 ML Document 01/09/24 08:14 KW [id number] 01/09/24 08:30 KW 01/02/24 01/09/24 08:41 08:14 Wound Center Nurse 1 #6 lateral inferior abd -Current Size (cm) - Length 0.5 0.4 -Current Size (cm) - Width 0.5 0.6 -Current Size (cm) - Depth 1 0.8 -Total Square Cm 0.25 0.24 -Date of Last Picture (Recall this 01/09/24 field) -Tunneling Yes -Tunneling Position (O'clock) 11 -Tunneling Distance (cm) 0.8 -Exudate Amt Medium Small -Exudate Type Serosanguineous Serosanguineous -Wound Margin Distinct, Distinct, Outline Outline Attached Attached -Granulation Amt Large (67-100%) -Granulation Quality [place] -Slough/Fibrin Yes -Necrosis Amt Small (1-33%) -Necrotic Tissue Type Adherent Slough -Texture (Matilde-wound Skin Appearance) Assessed Assessed -Moisture (Matilde-wound Skin Appearance) Assessed Assessed -Color (Matilde-wound Skin Appearance) Assessed Assessed -Temperature (Matilde-wound Skin No Abnormality No Abnormality Appearance) (Pt Warm) (Pt Warm) -Tenderness on Palpation (Matilde-wound Yes No Skin Appearance) -Ulcer Cleansing Soap and Water Soap and Water -Foul Odor after Cleansing No -Anesthetic Used 5% Lidocaine 5% Lidocaine Gel Gel 4-ABDOMEN INFERIOR -Current Size (cm) - Length 3.5 3.7 -Current Size (cm) - Width 3.5 2.8 -Current Size (cm) - Depth 0.1 0.1 -Total Square Cm 12.25 10.36 -Date of Last Picture (Recall this 01/09/24 field) -Exudate Amt Small Small -Exudate Type Serosanguineous Serosanguineous -Wound Margin Distinct, Distinct, Outline Outline Attached Attached -Granulation Amt Medium (34-66%) Large (67-100%) -Granulation Quality Red -Slough/Fibrin No -Necrosis Amt None Present (0 %) -Necrotic Tissue Type Adherent Slough -Texture (Matilde-wound Skin Appearance) Assessed Assessed -Moisture (Matilde-wound Skin Appearance) Assessed Assessed -Color (Matilde-wound Skin Appearance) Assessed Assessed -Temperature (Matilde-wound Skin No Abnormality No Abnormality Appearance) (Pt Warm) (Pt Warm) -Tenderness on Palpation (Matilde-wound No No Skin Appearance) -Ulcer Cleansing Soap and Water Soap and Water -Foul Odor after Cleansing No -Anesthetic Used 5% Lidocaine 5% Lidocaine Gel Gel 3-ABDOMEN SUPERIOR -Current Size (cm) - Length 4.5 3.2 -Current Size (cm) - Width 3 3.2 -Current Size (cm) - Depth 0.1 0.1 -Total Square Cm 13.5 10.24 -Date of Last Picture (Recall this 01/09/24 field) -Exudate Amt Medium Small -Exudate Type Serosanguineous Serosanguineous -Wound Margin Distinct, Distinct, Outline Outline Attached Attached -Granulation Amt Medium (34-66%) Large (67-100%) -Granulation Quality Red -Slough/Fibrin No -Necrosis Amt Medium (34-66%) -Necrotic Tissue Type Adherent Slough -Texture (Matilde-wound Skin Appearance) Assessed Assessed -Moisture (Matilde-wound Skin Appearance) Assessed Assessed -Color (Matilde-wound Skin Appearance) Assessed Assessed -Temperature (Matilde-wound Skin No Abnormality No Abnormality Appearance) (Pt Warm) (Pt Warm) -Tenderness on Palpation (Matilde-wound No No Skin Appearance) -Ulcer Cleansing Soap and Water Soap and Water -Foul Odor after Cleansing No No -Anesthetic Used 5% Lidocaine 5% Lidocaine Gel Gel WC - Nurse 2 - General Ulcer CM Notes Start: 01/02/24 08:41 Freq: Status: Active Protocol: Activity Type Activity Date Activity User E-sign Co-sign Detail Recorded Client Recorded Date Recorded By Document 01/02/24 09:18 [id number] 01/02/24 09:28 Document 01/09/24 08:40 [id number] 01/09/24 08:53 01/02/24 01/09/24 09:18 08:40 Wound Center Nurse 2 #6 lateral inferior abd -Time 09: 08:41 -Correct Patient Yes Yes -Correct Side, Site, Position Yes Yes -Correct Procedure Yes Yes -Procedure Performed Yes Yes -Type of Procedure Debridement Debridement -Clinical Debridement Subcutaneous Subcutaneous -Tissue Removed Subcutaneous Subcutaneous -Post Debridement (cm) - Length 0.5 0.3 -Post Debridement (cm) - Width 1.0 1.0 -Post Debridement (cm) - Depth 1.3 1.3 -Total Square (Post) (cm) 0.50 0.30 -Area of Debridement (cm) - Length 0.5 0.3 -Area of Debridement (cm) - Width 1.0 1.0 -Total Square (Area) (cm) 0.50 0.30 -Tunneling No No -Undermining/Tunneling No No -Circular Undermining No No -Wound/Ulcer Outcome Not Healed Not Healed -Ulcer Cleansing Rinsed/ Rinsed/ Irrigated with Irrigated with Saline Saline -Foul Odor after Cleansing No No -Bioengineered Tissue No No -Bleeding Controlled with Pressure Pressure -Treatment Response Procedure Procedure Tolerated Well Tolerated Well -Debridement - Subq, 1st 20sq cm No No 4-ABDOMEN INFERIOR -Time 09: 08:42 -Correct Patient Yes Yes -Correct Side, Site, Position Yes Yes -Correct Procedure Yes Yes -Procedure Performed Yes Yes -Type of Procedure Debridement Debridement -Clinical Debridement Subcutaneous Subcutaneous -Tissue Removed Subcutaneous Subcutaneous -Post Debridement (cm) - Length 3.8 3.5 -Post Debridement (cm) - Width 2.5 2.2 -Post Debridement (cm) - Depth 0.1 0.1 -Total Square (Post) (cm) 9.50 7.70 -Area of Debridement (cm) - Length 3.8 3.5 -Area of Debridement (cm) - Width 2.5 2.2 -Total Square (Area) (cm) 9.50 7.70 -Tunneling No No -Undermining/Tunneling No No -Circular Undermining No No -Wound/Ulcer Outcome Not Healed Not Healed -Ulcer Cleansing Rinsed/ Rinsed/ Irrigated with Irrigated with Saline Saline -Foul Odor after Cleansing No No -Bioengineered Tissue No No -Bleeding Controlled with Pressure Pressure -Treatment Response Procedure Procedure Tolerated Well Tolerated Well -Debridement - Subq, 1st 20sq cm No No 3-ABDOMEN SUPERIOR -Time 09:20 08:42 -Correct Patient Yes Yes -Correct Side, Site, Position Yes Yes -Correct Procedure Yes Yes -Procedure Performed Yes Yes -Type of Procedure Debridement Debridement -Clinical Debridement Subcutaneous Subcutaneous -Tissue Removed Subcutaneous -Post Debridement (cm) - Length 3.8 3.5 -Post Debridement (cm) - Width 3.3 3.0 -Post Debridement (cm) - Depth 0.1 0.1 -Total Square (Post) (cm) 12.54 10.50 -Area of Debridement (cm) - Length 3.8 3.5 -Area of Debridement (cm) - Width 3.3 3.0 -Total Square (Area) (cm) 12.54 10.50 -Tunneling No No -Undermining/Tunneling No No -Circular Undermining No No -Wound/Ulcer Outcome Not Healed Not Healed -Ulcer Cleansing Rinsed/ Rinsed/ Irrigated with Irrigated with Saline Saline -Foul Odor after Cleansing No No -Bioengineered Tissue No No -Bleeding Controlled with Pressure Pressure -Treatment Response Procedure Procedure Tolerated Well Tolerated Well -Debridement - Subq, 1st 20sq cm Yes Yes -Debridement, SubQ, ea addt'l 20sq cm 1 or part thereof Pain Scale: 0-10 Numeric Is Patient Pain Free? Yes Yes - Nurse 3 - General Ulcer D/C NN Start: 01/02/24 08:41 Freq: Status: Active Protocol: Activity Type Activity Date Activity User E-sign Co-sign Detail Recorded Client Recorded Date Recorded By Document 01/02/24 09:44 KW [id number] 01/02/24 09:57 KW Document 01/09/24 08:58 IN [id number] 01/09/24 09:03 IN 01/02/24 01/09/24 09:44 08:58 Wound Care Center Nurse 3 #6 lateral inferior abd -Ulcer Cleansing Rinsed/ Irrigated with Saline -Foul Odor after Cleansing No -Negative Pressure Wound Therapy N/A -Primary Dressing Applied NonAdherent Other Contact Layer -Other Dressing copper dressing copper from [facility], abd -Primary Dressing Covered/Secured with Dry Gauze, Secured with Tape 4-ABDOMEN INFERIOR -Other Dressing copper dressing adapt 3-ABDOMEN SUPERIOR -Other Dressing copper dressing adaptic -Primary Dressing Covered/Secured with Dry Gauze, Secured with Tape Pain Scale: 0-10 Numeric Is Patient Pain Free? Yes Yes Additional Wound Wound debrided: Abdomen (inferior) Type of Debridement: Excisional debridement Anesthesia Used: 4% Lidocaine Solution Depth: Down to and including healthy tissue and in the subcutaneous layer Percentage of wound debrided: 100 Instrument Used: 5mm curette Tissue Removed: Slough and devitalized tissue Severity: Fat Layer Exposed Amount of bleeding with debridement: Mild Bleeding Controlled with: Pressure Patient tolerated procedure: Patient tolerated procedure well Additional Wound Wound debrided: Abdomen (inferior lateral) Type of Debridement: Excisional debridement Anesthesia Used: 4% Lidocaine Solution Depth: Down to and including healthy tissue and in the subcutaneous layer Percentage of wound debrided: 100 Instrument Used: 3mm curette Tissue Removed: Devitalized tissue Severity: Fat Layer Exposed Amount of bleeding with debridement: Mild Bleeding Controlled with: Pressure Patient tolerated procedure: Patient tolerated procedure well Assessment/Plan Assessment/Plan (1) Non-healing surgical wound: CODE(S): T81.89XA - Other complications of procedures, not elsewhere classified, initial encounter QUALIFIERS: Encounter type: initial encounter Qualified Code(s): T81.89XA - Other complications of procedures, not elsewhere classified, initial encounter (2) Type 2 diabetes mellitus: CODE(S): E11.9 - Type 2 diabetes mellitus without complications QUALIFIERS: Diabetes mellitus exterminator insulin use: without senior living use Diabetes mellitus complication status: with skin complications Diabetes mellitus complication detail: with other skin complication Qualified Code(s): E11.628 - Type 2 diabetes mellitus with other skin complications (3) History of colostomy reversal: CODE(S): Z98.890 - Other specified postprocedural states (4) Surgical wound breakdown: CODE(S): T81.31XA - Disruption of external operation (surgical) wound, not elsewhere classified, initial encounter QUALIFIERS: Encounter type: initial encounter Qualified Code(s): T81.31XA - Disruption of external operation (surgical) wound, not elsewhere classified, initial encounter PLAN: Plan Debridement done as documented above, procedure was well-tolerated. No new concerns reported at this time. Superior and inferior abdominal wounds/ulcers with some improvement however inferior lateral with no change. Copper dressing to all ulcers/wounds. Apply orange side down ensuring dressing covers the periwound area as well. Moisten lightly and cover with Adaptic and ABD. Leave dressing in place for 3 days. They were advised to moisten very well prior to changing, they voiced understanding. Continue optimal diabetes control and dietary protein intake. Most recent A1c said to be 6.3, next check in February. Continue other chronic wound care management. His questions were answered and he was advised to let us know if he has any further questions or concerns. Follow-up in 1 week. This note was generated with [employer] dictation software. It may contain incorrect words, spelling, and punctuation that were not noted in checking the note before signing.
--- NOTE | 2024-01-10 09:00 | WC ---
PHOTO 01/09/24 ABD
--- NOTE | 2024-01-10 09:01 | WC ---
PHOTO 01/09/24 ABD
--- NOTE | 2024-01-10 09:01 | WC ---
PHOTO 01/09/24 ABD
--- NOTE | 2024-01-13 08:55 | WC ---
PHOTO 01/09/24 LETICIA LEVINE
--- NOTE | 2024-01-13 08:57 | WC ---
PHOTO 01/09/24 [facility]
--- NOTE | 2024-01-13 08:57 | WC ---
PHOTO 01/09/24 ABNER COLEMAN
[2024-01-16 09:02] VITALS: BP 155/75; PULSE 72; RESP 18; TEMP 36.4; BMI 36.9
--- NOTE | 2024-01-16 12:07 | PCM.WC.PN ---
History of Present Illness Date of Service: 01/16/24 Chief Complaint: Non healing surgical wound History of Wound: Mr. Duque is a 62 yo Last seen here over a month ago. He had been discharged due to plan for closure following colostomy reversal. Surgery was uneventful however, less than a week after surgery, he states that his wound breakdown/dehisced. Initially applied Dakin's dressing but subsequently, started a wound VAC. Since starting wound VAC, he states that there has been much better improvement. Currently set at 150 mmHg. History of diabetes mellitus which is well-controlled. He reports good protein intake. He feels well and denies any acute concerns at this time. Progress of Wound: Inferior lateral ulcer with some improvement compared to last week however, the superior and inferior ulcers with mild worsening. New area of skin breakdown also noted. His states that it is new. Denies significant drainage or pain. He however states that his blood glucose readings have been elevated compared to his prior readings. Currently on metformin, last A1c was at 6.3 and plan is for repeat A1c in February. Objective Data Objective Data Vital Signs: Vital Signs Temp Pulse Resp BP O2 Del Method 97.6 F L 72 18 155/75 H Room Air 01/16/24 09:02 01/16/24 09:02 01/16/24 09:02 01/16/24 09:02 01/16/24 09:02 Oxygen Delivery Method Room Air Weight: 250 lb Body Mass Index (BMI) 36.9 Charges/Coding Procedures Integumentary 111xxx-113xx: [id number] Hannah subq tissue 20 sq cm/< Add On Codes: 48467 Hannah subq tissue add-on (X 1. Additional square centimeter debrided, please refer to clinical note) Physical Exam Const alert, oriented x3 and no apparent distress General Appearance: cooperative, comfortable and well kempt HEENT normocephalic, head/scalp atraumatic and hearing grossly normal bilaterally Eyes EOMs intact bilaterally General Eye: normal appearance of both eyes Neck full ROM and supple General: normal visual inspection Resp normal respiratory effort Effort and Inspection: able to speak in complete sentences GI non-tender and non-distended Skin Wounds: wounds noted size Size: See clinical note, bed granulating well, margins well approximated, no odor and open Neuro oriented x3, CN's II-XII intact bilaterally, moves all extremities and no focal motor deficits Psych mental status grossly normal, thought process normal and cooperative Debridement Note Debridement Note Wound debrided: Abdomen (superior) Type of Debridement: Excisional debridement Anesthesia Used: 4% Lidocaine Solution Depth: Down to and including healthy tissue and in the subcutaneous layer Percentage of wound debrided: 100 Instrument Used: 5mm curette Tissue Removed: Slough and devitalized tissue Severity: Fat Layer Exposed Amount of bleeding with debridement: Mild Bleeding Controlled with: Pressure Patient tolerated procedure: Patient tolerated procedure well Post-Debridement Measurements and Additional Note: Post-Debridement Measurements/Treatment - Nurse 1 - General Ulcer Assessment Start: 01/02/24 08:41 Freq: Status: Active Protocol: [email or web address].[email or web address] Activity Type Activity Date Activity User E-sign Co-sign Detail Recorded Client Recorded Date Recorded By Document 01/02/24 08:41 ML [id number] 01/02/24 08:56 ML Document 01/09/24 08:14 KW [id number] 01/09/24 08:30 KW Document 01/16/24 09:02 KW [id number] 01/16/24 09:15 KW 01/02/24 01/09/24 01/16/24 08:41 08:14 09:02 - Today's Visit Information Type of service Follow-up Visit Follow-up Visit Follow-up Visit (Physician/METAL PRECISION MACHINE ASSEMBLER (Physician/METAL PRECISION MACHINE ASSEMBLER (Physician/METAL PRECISION MACHINE ASSEMBLER ) ) ) Arrival Mode Ambulatory Ambulatory Ambulatory Transfer Assistance None Accompanied by Patient Identification Verified (Name & Yes Yes Yes ) Patient Requires Transmission-Based No Precautions Finger Stick Blood Sugar(mg/dl) (if 145 indicated): Blood Sugar Stated by Patient Height and Weight Body Mass Index (BMI) 36.9 36.9 36.9 BMI Classification Obese Obese Obese Vital Signs Temperature (97.8 F-99.1 F) 97.2 F L 97.6 F L 97.6 F L Temperature Source Temporal Temporal Temporal Pulse Rate (60-100) 74 77 72 Pulse Location Monitor Monitor Monitor Respiratory Rate (12-18) 18 18 18 Respiratory rate source Observation Observation Observation Oxygen Delivery Method Room Air Room Air Blood Pressure (90/60-120/80) 154/73 H 150/78 H 155/75 H Blood Pressure Mean (mm Hg) 100 102 101 Source Monitor Monitor Monitor Position Semi-Fowlers Sitting Blood Pressure Location Left Arm Left Arm History Since Last Visit- (Skip if this is Patient's initial visit) Have you changed medications since your No No No last visit? Any new allergies or adverse reactions No No No Had a fall/change in ADL's that may No No No increase risk of falls Signs or symptoms of abuse and/or No No No neglect since last visit Have you been in the hospital since your No No No last visit? Has dressing in place as prescribed Yes Yes Yes Has compression in place as prescribed N/A N/A Yes Has offloadiing in place as prescribed N/A N/A N/A Experienced any changes in pain level or No No No management Left Footwear Regular Shoe Regular Shoe Right Footwear Regular Shoe Regular Shoe Pain Scale: 0-10 Numeric Is Patient Pain Free? Yes Yes Yes WC - Nurse 1 - General Ulcer Measurement Start: 01/02/24 08:41 Freq: Status: Active Protocol: Activity Type Activity Date Activity User E-sign Co-sign Detail Recorded Client Recorded Date Recorded By Document 01/02/24 08:41 ML [id number] 01/02/24 08:56 ML Document 01/09/24 08:14 KW [id number] 01/09/24 08:30 KW Document 01/16/24 09:02 KW [id number] 01/16/24 09:15 KW 01/02/24 01/09/24 01/16/24 08:41 08:14 09:02 Wound Center Nurse 1 #6 lateral inferior abd -Current Size (cm) - Length 0.5 0.4 0.8 -Current Size (cm) - Width 0.5 0.6 0.8 -Current Size (cm) - Depth 1 0.8 0.8 -Total Square Cm 0.25 0.24 0.64 -Date of Last Picture (Recall this 01/09/24 01/16/24 field) -Tunneling Yes -Tunneling Position (O'clock) 11 -Tunneling Distance (cm) 0.8 -Exudate Amt Medium Small Small -Exudate Type Serosanguineous Serosanguineous Serosanguineous -Wound Margin Distinct, Distinct, Distinct, Outline Outline Outline Attached Attached Attached -Granulation Amt Large (67-100%) Large (67-100%) -Granulation Quality Gower Red -Slough/Fibrin Yes -Necrosis Amt Small (1-33%) -Necrotic Tissue Type Adherent Slough -Texture (Matilde-wound Skin Appearance) Assessed Assessed Assessed -Moisture (Matilde-wound Skin Appearance) Assessed Assessed Assessed -Color (Matilde-wound Skin Appearance) Assessed Assessed Assessed -Temperature (Matilde-wound Skin No Abnormality No Abnormality No Abnormality Appearance) (Pt Warm) (Pt Warm) (Pt Warm) -Tenderness on Palpation (Matilde-wound Yes No No Skin Appearance) -Ulcer Cleansing Soap and Water Soap and Water Soap and Water -Foul Odor after Cleansing No No -Anesthetic Used 5% Lidocaine 5% Lidocaine 4% Lidocaine Gel Gel Solution 4-ABDOMEN INFERIOR -Current Size (cm) - Length 3.5 3.7 4.5 -Current Size (cm) - Width 3.5 2.8 2.2 -Current Size (cm) - Depth 0.1 0.1 0.1 -Total Square Cm 12.25 10.36 9.90 -Date of Last Picture (Recall this 01/09/24 01/16/24 field) -Exudate Amt Small Small Small -Exudate Type Serosanguineous Serosanguineous Serosanguineous -Wound Margin Distinct, Distinct, Distinct, Outline Outline Outline Attached Attached Attached -Granulation Amt Medium (34-66%) Large (67-100%) Large (67-100%) -Granulation Quality Red Red -Slough/Fibrin No -Necrosis Amt None Present (0 %) -Necrotic Tissue Type Adherent Slough -Texture (Matilde-wound Skin Appearance) Assessed Assessed Assessed -Moisture (Matilde-wound Skin Appearance) Assessed Assessed Assessed -Color (Matilde-wound Skin Appearance) Assessed Assessed Assessed -Temperature (Matilde-wound Skin No Abnormality No Abnormality No Abnormality Appearance) (Pt Warm) (Pt Warm) (Pt Warm) -Tenderness on Palpation (Matilde-wound No No No Skin Appearance) -Ulcer Cleansing Soap and Water Soap and Water Soap and Water -Foul Odor after Cleansing No No -Anesthetic Used 5% Lidocaine 5% Lidocaine 4% Lidocaine Gel Gel Solution 3-ABDOMEN SUPERIOR -Current Size (cm) - Length 4.5 3.2 3.9 -Current Size (cm) - Width 3 3.2 3.5 -Current Size (cm) - Depth 0.1 0.1 0.1 -Total Square Cm 13.5 10.24 13.65 -Date of Last Picture (Recall this 01/09/24 01/16/24 field) -Epithelialization Medium 34-66% -Exudate Amt Medium Small Small -Exudate Type Serosanguineous Serosanguineous Serosanguineous -Wound Margin Distinct, Distinct, Distinct, Outline Outline Outline Attached Attached Attached -Granulation Amt Medium (34-66%) Large (67-100%) Large (67-100%) -Granulation Quality Red Red -Slough/Fibrin No -Necrosis Amt Medium (34-66%) Small (1-33%) -Necrotic Tissue Type Adherent Slough Adherent Slough -Texture (Matilde-wound Skin Appearance) Assessed Assessed Assessed -Moisture (Matilde-wound Skin Appearance) Assessed Assessed Assessed -Color (Matilde-wound Skin Appearance) Assessed Assessed Assessed -Temperature (Matilde-wound Skin No Abnormality No Abnormality No Abnormality Appearance) (Pt Warm) (Pt Warm) (Pt Warm) -Tenderness on Palpation (Matilde-wound No No No Skin Appearance) -Ulcer Cleansing Soap and Water Soap and Water Soap and Water -Foul Odor after Cleansing No No No -Anesthetic Used 5% Lidocaine 5% Lidocaine 4% Lidocaine Gel Gel Solution WC - Nurse 2 - General Ulcer CM Notes Start: 01/02/24 08:41 Freq: Status: Active Protocol: Activity Type Activity Date Activity User E-sign Co-sign Detail Recorded Client Recorded Date Recorded By Document 01/02/24 09:18 [id number] 01/02/24 09:28 Document 01/09/24 08:40 [id number] 01/09/24 08:53 Document 01/16/24 09:37 [id number] 01/16/24 09:51 01/02/24 01/09/24 01/16/24 09:18 08:40 09:37 Wound Center Nurse 2 #6 lateral inferior abd -Time 09:19 08:41 09:38 -Correct Patient Yes Yes Yes -Correct Side, Site, Position Yes Yes Yes -Correct Procedure Yes Yes Yes -Procedure Performed Yes Yes Yes -Type of Procedure Debridement Debridement Debridement -Clinical Debridement Subcutaneous Subcutaneous Subcutaneous -Tissue Removed Subcutaneous Subcutaneous Subcutaneous -Post Debridement (cm) - Length 0.5 0.3 0.4 -Post Debridement (cm) - Width 1.0 1.0 0.9 -Post Debridement (cm) - Depth 1.3 1.3 0.1 -Total Square (Post) (cm) 0.50 0.30 0.36 -Area of Debridement (cm) - Length 0.5 0.3 0.4 -Area of Debridement (cm) - Width 1.0 1.0 0.9 -Total Square (Area) (cm) 0.50 0.30 0.36 -Tunneling No No No -Undermining/Tunneling No No No -Circular Undermining No No No -Wound/Ulcer Outcome Not Healed Not Healed Not Healed -Ulcer Cleansing Rinsed/ Rinsed/ Rinsed/ Irrigated with Irrigated with Irrigated with Saline Saline Saline -Foul Odor after Cleansing No No No -Bioengineered Tissue No No No -Bleeding Controlled with Pressure Pressure Pressure -Treatment Response Procedure Procedure Procedure Tolerated Well Tolerated Well Tolerated Well -Debridement - Subq, 1st 20sq cm No No No 4-ABDOMEN INFERIOR -Time 09:19 08:42 09:38 -Correct Patient Yes Yes Yes -Correct Side, Site, Position Yes Yes Yes -Correct Procedure Yes Yes Yes -Procedure Performed Yes Yes Yes -Type of Procedure Debridement Debridement Debridement -Clinical Debridement Subcutaneous Subcutaneous Subcutaneous -Tissue Removed Subcutaneous Subcutaneous Subcutaneous -Post Debridement (cm) - Length 3.8 3.5 3.8 -Post Debridement (cm) - Width 2.5 2.2 2.3 -Post Debridement (cm) - Depth 0.1 0.1 0.1 -Total Square (Post) (cm) 9.50 7.70 8.74 -Area of Debridement (cm) - Length 3.8 3.5 3.8 -Area of Debridement (cm) - Width 2.5 2.2 2.3 -Total Square (Area) (cm) 9.50 7.70 8.74 -Tunneling No No No -Undermining/Tunneling No No No -Circular Undermining No No No -Wound/Ulcer Outcome Not Healed Not Healed Not Healed -Ulcer Cleansing Rinsed/ Rinsed/ Rinsed/ Irrigated with Irrigated with Irrigated with Saline Saline Saline -Foul Odor after Cleansing No No No -Bioengineered Tissue No No No -Bleeding Controlled with Pressure Pressure Pressure -Treatment Response Procedure Procedure Procedure Tolerated Well Tolerated Well Tolerated Well -Debridement - Subq, 1st 20sq cm No No No 3-ABDOMEN SUPERIOR -Time 09:20 08:42 09:39 -Correct Patient Yes Yes Yes -Correct Side, Site, Position Yes Yes Yes -Correct Procedure Yes Yes Yes -Procedure Performed Yes Yes Yes -Type of Procedure Debridement Debridement Debridement -Clinical Debridement Subcutaneous Subcutaneous Subcutaneous -Tissue Removed Subcutaneous Subcutaneous -Post Debridement (cm) - Length 3.8 3.5 4.0 -Post Debridement (cm) - Width 3.3 3.0 3.0 -Post Debridement (cm) - Depth 0.1 0.1 0.1 -Total Square (Post) (cm) 12.54 10.50 12.00 -Area of Debridement (cm) - Length 3.8 3.5 4.0 -Area of Debridement (cm) - Width 3.3 3.0 3.0 -Total Square (Area) (cm) 12.54 10.50 12.00 -Tunneling No No No -Undermining/Tunneling No No No -Circular Undermining No No No -Wound/Ulcer Outcome Not Healed Not Healed Not Healed -Ulcer Cleansing Rinsed/ Rinsed/ Rinsed/ Irrigated with Irrigated with Irrigated with Saline Saline Saline -Foul Odor after Cleansing No No No -Bioengineered Tissue No No No -Bleeding Controlled with Pressure Pressure Pressure -Treatment Response Procedure Procedure Procedure Tolerated Well Tolerated Well Tolerated Well -Debridement - Subq, 1st 20sq cm Yes Yes Yes -Debridement, SubQ, ea addt'l 20sq cm 1 1 or part thereof Pain Scale: 0-10 Numeric Is Patient Pain Free? Yes Yes Yes WC - Nurse 3 - General Ulcer D/C NN Start: 01/02/24 08:41 Freq: Status: Active Protocol: Activity Type Activity Date Activity User E-sign Co-sign Detail Recorded Client Recorded Date Recorded By Document 01/02/24 09:44 KW [id number] 01/02/24 09:57 KW Document 01/09/24 08:58 MT [id number] 01/09/24 09:03 MT Document 01/16/24 09:54 DS [id number] 01/16/24 09:56 DS 01/02/24 01/09/24 01/16/24 09:44 08:58 09:54 Wound Care Center Nurse 3 #6 lateral inferior abd -Ulcer Cleansing Rinsed/ Rinsed/ Irrigated with Irrigated with Saline Saline -Foul Odor after Cleansing No -Negative Pressure Wound Therapy N/A -Primary Dressing Applied NonAdherent Other Other Contact Layer -Other Dressing copper dressing copper from [facility] copper dressing for tunnel, , abd pad abd -Primary Dressing Covered/Secured with Dry Gauze, Secured with Secured with Tape Tape 4-ABDOMEN INFERIOR -Ulcer Cleansing Rinsed/ Irrigated with Saline -Primary Dressing Applied Other -Other Dressing copper dressing copper dressing adapt , abd pad -Primary Dressing Covered/Secured with Secured with Tape 3-ABDOMEN SUPERIOR -Ulcer Cleansing Rinsed/ Irrigated with Saline -Primary Dressing Applied Other -Other Dressing copper dressing copper dressing adaptic , abd pad -Primary Dressing Covered/Secured with Dry Gauze, Secured with Secured with Tape Tape Pain Scale: 0-10 Numeric Is Patient Pain Free? Yes Yes Yes WC - Visit Discharge Discharge Condition Stable Ambulatory Status Ambulatory Transportation Private Auto Medication Reconcilliation completed & Yes provided to patient/care provider Clinical Summary of Care Provided Yes Additional Wound Wound debrided: Abdomen (inferior) Type of Debridement: Excisional debridement Anesthesia Used: 4% Lidocaine Solution Depth: Down to and including healthy tissue and in the subcutaneous layer Percentage of wound debrided: 100 Instrument Used: 5mm curette Tissue Removed: Slough and devitalized tissue Severity: Fat Layer Exposed Amount of bleeding with debridement: Mild Bleeding Controlled with: Pressure Patient tolerated procedure: Patient tolerated procedure well Additional Wound Wound debrided: Abdomen (inferior lateral) Type of Debridement: Excisional debridement Anesthesia Used: 4% Lidocaine Solution Depth: Down to and including healthy tissue and in the subcutaneous layer Percentage of wound debrided: 100 Instrument Used: 3mm curette Tissue Removed: Slough and devitalized tissue Severity: Fat Layer Exposed Amount of bleeding with debridement: Mild Bleeding Controlled with: Pressure Patient tolerated procedure: Patient tolerated procedure well Assessment/Plan Assessment/Plan (1) Non-healing surgical wound: CODE(S): T81.89XA - Other complications of procedures, not elsewhere classified, initial encounter QUALIFIERS: Encounter type: initial encounter Qualified Code(s): T81.89XA - Other complications of procedures, not elsewhere classified, initial encounter (2) Type 2 diabetes mellitus: CODE(S): E11.9 - Type 2 diabetes mellitus without complications QUALIFIERS: Diabetes mellitus moth exterminator insulin use: without senior care use Diabetes mellitus complication status: with skin complications Diabetes mellitus complication detail: with other skin complication Qualified Code(s): E11.628 - Type 2 diabetes mellitus with other skin complications (3) History of colostomy reversal: CODE(S): Z98.890 - Other specified postprocedural states (4) Surgical wound breakdown: CODE(S): T81.31XA - Disruption of external operation (surgical) wound, not elsewhere classified, initial encounter QUALIFIERS: Encounter type: initial encounter Qualified Code(s): T81.31XA - Disruption of external operation (surgical) wound, not elsewhere classified, initial encounter PLAN: Plan Debridement done as documented above, procedure was well-tolerated. No new concerns reported at this time. Inferior lateral with improvement this week however inferior and superior ulcers with mild worsening and surrounding skin breakdown to the inferior area. They deny increased drainage or pain. He reports blood glucose readings have been elevated over recent weeks. Currently on metformin and follows up with his primary care physician in February. He was advised to speak with his primary care physician as he will need more optimal blood glucose control. He states that he continues to exercise consistently and has not made any significant dietary changes. Cultures taken to rule out an infection, no clinical concerns for infection. Continue copper dressing to all ulcers/wounds. Apply orange side down ensuring dressing covers the periwound area as well. Moisten lightly and cover with Adaptic and ABD. Leave dressing in place for 3 days. They were advised to moisten very well prior to changing, they voiced understanding. May change more often if concern for drainage. Continue optimal diabetes control and dietary protein intake. Continue other chronic wound care management. His questions were answered and he was advised to let us know if he has any further questions or concerns. Follow-up in 2 weeks. This note was generated with [employer] dictation software. It may contain incorrect words, spelling, and punctuation that were not noted in checking the note before signing.
--- NOTE | 2024-01-17 08:19 | WC ---
PHOTO 01/16/24 LATERAL INF ABD
--- NOTE | 2024-01-17 08:38 | WC ---
PHOTO 01/16/24 SUP ABD
== END 2024-01-25 23:59 | disposition home or self-care (01) ==
LOC: WC 09:00
PROVIDERS: PCP Internal Medicine; Referring Provider Internal Medicine; Visit Provider Internal Medicine
DX: T81.89XA Other complications of procedures, not elsewhere classified, initial encounter (principal); E11.628 Type 2 diabetes mellitus with other skin complications; Z79.84 Long term (current) use of oral hypoglycemic drugs; Z98.890 Other specified postprocedural states; T81.31XA Disruption of external operation (surgical) wound, not elsewhere classified, initial encounter
CPT/HCPCS: 11042; 11045; 87070; 87075; 87205

== ENCOUNTER 2024-02-20 08:15 | Outpatient (RCR) | payer OTHER, SELFPAY ==
[2024-01-26 00:18] VITALS: BP 143/76; PULSE 84; RESP 16; TEMP 36.6; BMI 36.9
[2024-01-30 11:05] VITALS: BP 166/90; PULSE 83; RESP 18; TEMP 36.6; BMI 36.9
--- NOTE | 2024-01-30 12:09 | PN.PCM_ITS ---
History of Present Illness Date of Service: 01/30/24 Chief Complaint: Non healing surgical wound History of Wound: Mr. Duque is a 62 yo Last seen here over a month ago. He had been discharged due to plan for closure following colostomy reversal. Surgery was uneventful however, less than a week after surgery, he states that his wound breakdown/dehisced. Initially applied Dakin's dressing but subsequently, started a wound VAC. Since starting wound VAC, he states that there has been much better improvement. Currently set at 150 mmHg. History of diabetes mellitus which is well-controlled. He reports good protein intake. He feels well and denies any acute concerns at this time. Progress of Wound: No acute concerns reported at this time. Good improvement over the last 2 weeks. He denies increased drainage, pain or feeling of unwell. His blood glu cose readings are still not optimal. Objective Data Objective Data Vital Signs: Vital Signs Temp Pulse Resp BP 97.8 F 83 18 166/90 H 01/30/24 11:05 01/30/24 11:05 01/30/24 11:05 01/30/24 11:05 Weight: 250 lb Body Mass Index (BMI) 36.9 Charges/Coding Procedures Integumentary 111xxx-113xx: [id number] Hannah subq tissue 20 sq cm/< Physical Exam Const alert, oriented x3 and no apparent distress General Appearance: cooperative, comfortable and well kempt HEENT normocephalic, head/scalp atraumatic and hearing grossly normal bilaterally Eyes EOMs intact bilaterally General Eye: normal appearance of both eyes Neck full ROM and supple General: normal visual inspection Resp normal respiratory effort Effort and Inspection: able to speak in complete sentences GI non-tender and non-distended Skin Wounds: wounds noted size Size: See clinical note, bed granulating well, margins well approximated, no odor and open Neuro oriented x3, CN's II-XII intact bilaterally, moves all extremities and no focal motor deficits Psych mental status grossly normal, thought process normal and cooperative Debridement Note Debridement Note Wound debrided: Abdomen (superior) Type of Debridement: Excisional debridement Anesthesia Used: 5% Lidocaine Gel Depth: Down to and including healthy tissue and in the subcutaneous layer Percentage of wound debrided: 100 Instrument Used: 5mm curette Tissue Removed: Slough and devitalized tissue Severity: Fat Layer Exposed Amount of bleeding with debridement: Mild Bleeding Controlled with: Pressure Patient tolerated procedure: Patient tolerated procedure well Post-Debridement Measurements and Additional Note: Post-Debridement Measurements/Treatment [id number] - Nurse 1 - General Ulcer Assessment Start: 01/30/24 11:05 Freq: Status: Active Protocol: JUSTIN Activity Type Activity Date Activity User E-sign Co-sign Detail Recorded Client Recorded Date Recorded By Document 01/30/24 11:05 BELGICA [id number] 01/30/24 11:08 RB 01/30/24 11:05 WC - Today's Visit Information Type of service Follow-up Visit (Physician/DOG TRAINER ) Arrival Mode Ambulatory Transfer Assistance None Patient Identification Verified (Name & Yes ) Patient Requires Transmission-Based No Precautions Height and Weight Body Mass Index (BMI) 36.9 BMI Classification Obese Vital Signs Temperature (97.8 F-99.1 F) 97.8 F Temperature Source Temporal Pulse Rate (60-100) 83 Pulse Location Monitor Respiratory Rate (12-18) 18 Respiratory rate source Observation Blood Pressure (90/60-120/80) 166/90 H Blood Pressure Mean (mm Hg) 115 Source Monitor Position Semi-Fowlers Blood Pressure Location Left Arm History Since Last Visit- (Skip if this is Patient's initial visit) Have you changed medications since your No last visit? Any new allergies or adverse reactions No Had a fall/change in ADL's that may No increase risk of falls Signs or symptoms of abuse and/or No neglect since last visit Have you been in the hospital since your No last visit? Has dressing in place as prescribed Yes Has compression in place as prescribed No Has offloadiing in place as prescribed No Experienced any changes in pain level or No management Pain Scale: 0-10 Numeric Is Patient Pain Free? Yes [place] Nurse 1 - General Ulcer Measurement Start: 01/30/24 11:05 Freq: Status: Active Protocol: Activity Type Activity Date Activity User E-sign Co-sign Detail Recorded Client Recorded Date Recorded By Document 01/30/24 11:05 BELGICA [id number] 01/30/24 11:08 RB 01/30/24 11:05 Wound Center Nurse 1 #6 lateral inferior abd -Combined with other wound No -Current Size (cm) - Length 0.4 -Current Size (cm) - Width 0.6 -Current Size (cm) - Depth 0.6 -Total Square Cm 0.24 -Tunneling No -Undermining/Tunneling No -Circular Undermining No -Exudate Amt Medium -Exudate Type Serosanguineous -Wound Margin Thickened & Rolled Under -Granulation Amt Medium (34-66%) -Granulation Quality Slinger -Slough/Fibrin Yes -Necrosis Amt Medium (34-66%) -Necrotic Tissue Type Adherent Slough -Structure Exposed N/A -Texture (Matilde-wound Skin Appearance) Scarring -Moisture (Matilde-wound Skin Appearance) Assessed -Color (Matilde-wound Skin Appearance) Assessed -Temperature (Matilde-wound Skin No Abnormality Appearance) (Pt Warm) -Tenderness on Palpation (Matilde-wound No Skin Appearance) -Ulcer Cleansing Wound Cleanser -Foul Odor after Cleansing No -Anesthetic Used 4% Lidocaine Solution 4-ABDOMEN INFERIOR -Combined with other wound No -Current Size (cm) - Length 4 -Current Size (cm) - Width 1.6 -Current Size (cm) - Depth 0.1 -Total Square Cm 6.4 -Tunneling No -Undermining/Tunneling No -Circular Undermining No -Exudate Amt Medium -Exudate Type Serosanguineous -Wound Margin Thickened & Rolled Under -Granulation Amt Medium (34-66%) -Granulation Quality Slinger -Slough/Fibrin Yes -Necrosis Amt Small (1-33%) -Necrotic Tissue Type Adherent Slough -Structure Exposed N/A -Texture (Matilde-wound Skin Appearance) Assessed, Scarring -Moisture (Matilde-wound Skin Appearance) Assessed -Color (Matilde-wound Skin Appearance) Assessed -Temperature (Matilde-wound Skin No Abnormality Appearance) (Pt Warm) -Tenderness on Palpation (Matilde-wound No Skin Appearance) -Ulcer Cleansing Wound Cleanser -Foul Odor after Cleansing No -Anesthetic Used 4% Lidocaine Solution 3-ABDOMEN SUPERIOR -Combined with other wound No -Current Size (cm) - Length 4 -Current Size (cm) - Width 3 -Current Size (cm) - Depth 0.1 -Total Square Cm 12 -Tunneling No -Undermining/Tunneling No -Circular Undermining No -Exudate Amt Medium -Exudate Type Serosanguineous -Wound Margin Distinct, Outline Attached -Granulation Amt Medium (34-66%) -Granulation Quality Slinger -Slough/Fibrin Yes -Necrosis Amt Medium (34-66%) -Necrotic Tissue Type Adherent Slough -Structure Exposed N/A -Texture (Matilde-wound Skin Appearance) Assessed, Scarring -Moisture (Matilde-wound Skin Appearance) Assessed -Color (Matilde-wound Skin Appearance) Assessed -Temperature (Matilde-wound Skin No Abnormality Appearance) (Pt Warm) -Tenderness on Palpation (Matilde-wound No Skin Appearance) -Ulcer Cleansing Wound Cleanser -Foul Odor after Cleansing No -Anesthetic Used 4% Lidocaine Solution WC - Nurse 2 - General Ulcer CM Notes Start: 01/30/24 11:05 Freq: Status: Active Protocol: Activity Type Activity Date Activity User E-sign Co-sign Detail Recorded Client Recorded Date Recorded By Document 01/30/24 11:29 [id number] 01/30/24 11:39 01/30/24 11:29 Wound Center Nurse 2 #6 lateral inferior abd -Time 11:29 -Correct Patient Yes -Correct Side, Site, Position Yes -Correct Procedure Yes -Procedure Performed Yes -Type of Procedure Debridement -Clinical Debridement Subcutaneous -Tissue Removed Subcutaneous -Post Debridement (cm) - Length 0.3 -Post Debridement (cm) - Width 0.5 -Post Debridement (cm) - Depth 0.8 -Total Square (Post) (cm) 0.15 -Area of Debridement (cm) - Length 0.3 -Area of Debridement (cm) - Width 0.5 -Total Square (Area) (cm) 0.15 -Tunneling No -Undermining/Tunneling No -Circular Undermining No -Wound/Ulcer Outcome Not Healed -Ulcer Cleansing Rinsed/ Irrigated with Saline -Foul Odor after Cleansing No -Bioengineered Tissue No -Bleeding Controlled with Pressure -Treatment Response Procedure Tolerated Well -Debridement - Subq, 1st 20sq cm Yes 4-ABDOMEN INFERIOR -Time 11:29 -Correct Patient Yes -Correct Side, Site, Position Yes -Correct Procedure Yes -Procedure Performed Yes -Type of Procedure Debridement -Clinical Debridement Subcutaneous -Tissue Removed Subcutaneous -Post Debridement (cm) - Length 3.0 -Post Debridement (cm) - Width 1.6 -Post Debridement (cm) - Depth 0.1 -Total Square (Post) (cm) 4.80 -Area of Debridement (cm) - Length 3.0 -Area of Debridement (cm) - Width 1.6 -Total Square (Area) (cm) 4.80 -Tunneling No -Undermining/Tunneling No -Circular Undermining No -Wound/Ulcer Outcome Not Healed -Ulcer Cleansing Rinsed/ Irrigated with Saline -Foul Odor after Cleansing No -Bioengineered Tissue No -Bleeding Controlled with Pressure -Treatment Response Procedure Tolerated Well -Debridement - Subq, 1st 20sq cm No 3-ABDOMEN SUPERIOR -Time 11:29 -Correct Patient Yes -Correct Side, Site, Position Yes -Correct Procedure Yes -Procedure Performed Yes -Type of Procedure Debridement -Clinical Debridement Subcutaneous -Tissue Removed Subcutaneous -Post Debridement (cm) - Length 3.0 -Post Debridement (cm) - Width 2.8 -Post Debridement (cm) - Depth 0.1 -Total Square (Post) (cm) 8.40 -Area of Debridement (cm) - Length 3.0 -Area of Debridement (cm) - Width 2.8 -Total Square (Area) (cm) 8.40 -Tunneling No -Undermining/Tunneling No -Circular Undermining No -Wound/Ulcer Outcome Not Healed -Ulcer Cleansing Rinsed/ Irrigated with Saline -Foul Odor after Cleansing No -Bioengineered Tissue No -Bleeding Controlled with Pressure -Treatment Response Procedure Tolerated Well -Debridement - Subq, 1st 20sq cm Yes Pain Scale: 0-10 Numeric Is Patient Pain Free? Yes - Nurse 3 - General Ulcer D/C NN Start: 01/30/24 11:05 Freq: Status: Active Protocol: Activity Type Activity Date Activity User E-sign Co-sign Detail Recorded Client Recorded Date Recorded By Document 01/30/24 11:55 MISHA [id number] 01/30/24 11:56 MISHA 01/30/24 11:55 Wound Care Center Nurse 3 #6 lateral inferior abd -Ulcer Cleansing Rinsed/ Irrigated with Saline -Foul Odor after Cleansing No -Other Dressing copper dressing -Other Covering adb pad 4-ABDOMEN INFERIOR -Ulcer Cleansing Rinsed/ Irrigated with Saline -Foul Odor after Cleansing No -Other Dressing copper dressing -Other Covering abdomen pad 3-ABDOMEN SUPERIOR -Ulcer Cleansing Rinsed/ Irrigated with Saline -Foul Odor after Cleansing No -Other Dressing copper dressing -Other Covering abd pad Pain Scale: 0-10 Numeric Is Patient Pain Free? Yes WC - Visit Discharge Discharge Condition Stable Ambulatory Status Ambulatory Transportation Private Auto Accompanied by Additional Wound Wound debrided: Abdomen (inferior) Type of Debridement: Excisional debridement Anesthesia Used: 4% Lidocaine Solution Depth: Down to and including healthy tissue and in the subcutaneous layer Percentage of wound debrided: 100 Instrument Used: 5mm curette Tissue Removed: Slough and devitalized tissue Severity: Fat Layer Exposed Amount of bleeding with debridement: Mild Bleeding Controlled with: Pressure Patient tolerated procedure: Patient tolerated procedure well Additional Wound Wound debrided: Abdomen (inferior-lateral) Type of Debridement: Excisional debridement Depth: Down to and including healthy tissue and in the subcutaneous layer Percentage of wound debrided: 100 Instrument Used: 3mm curette Tissue Removed: Slough and devitalized tissue Severity: Fat Layer Exposed Amount of bleeding with debridement: Mild Bleeding Controlled with: Pressure Patient tolerated procedure: Patient tolerated procedure well Assessment/Plan Assessment/Plan (1) Non-healing surgical wound: CODE(S): T81.89XA - Other complications of procedures, not elsewhere classified, initial encounter QUALIFIERS: Encounter type: initial encounter Qualified Code(s): T81.89XA - Other complications of procedures, not elsewhere classified, initial encounter (2) Type 2 diabetes mellitus: CODE(S): E11.9 - Type 2 diabetes mellitus without complications QUALIFIERS: Diabetes mellitus retirement insulin use: without manager terminal use Diabetes mellitus complication status: with skin complications Diabetes mellitus complication detail: with other skin complication Qualified Code(s): E11.628 - Type 2 diabetes mellitus with other skin complications (3) History of colostomy reversal: CODE(S): Z98.890 - Other specified postprocedural states (4) Surgical wound breakdown: CODE(S): T81.31XA - Disruption of external operation (surgical) wound, not elsewhere classified, initial encounter QUALIFIERS: Encounter type: initial encounter Qualified Code(s): T81.31XA - Disruption of external operation (surgical) wound, not elsewhere classified, initial encounter PLAN: Plan Debridement done as documented above, procedure was well-tolerated. No new concerns reported at this time. He has shown significant improvement since his last visit. As above, denies increased drainage or pain. His blood glucose readings however are still not well-controlled. Continue copper dressing to all ulcers/wounds. Apply orange side down ensuring dressing covers the periwound area as well. Moisten lightly and cover with Adaptic and ABD. Leave dressing in place for 3 days. They were advised to moisten very well prior to changing, they voiced understanding. May change more often if concern for drainage. Continue optimal diabetes control and dietary protein intake. He was advised to reach out to his primary care physician about possible medication adjustment for better blood glucose control, he states that he will think about it. Cultures reviewed, will hold off antibiotics as there has been significant improvement and no clinical sign for infection. Continue other chronic wound care management. His questions were answered and he was advised to let us know if he has any further questions or concerns. Follow-up in 2 weeks. This note was generated with [employer] dictation software. It may contain incorrect words, spelling, and punctuation that were not noted in checking the note before signing.
[2024-02-13 08:55] VITALS: BP 150/80; PULSE 77; RESP 18; TEMP 36.3; BMI 36.9
--- NOTE | 2024-02-13 12:18 | PN.PCM_ITS ---
History of Present Illness Date of Service: 02/13/24 Chief Complaint: Non healing surgical wound History of Wound: Mr. Duque is a 62 yo Last seen here over a month ago. He had been discharged due to plan for closure following colostomy reversal. Surgery was uneventful however, less than a week after surgery, he states that his wound breakdown/dehisced. Initially applied Dakin's dressing but subsequently, started a wound VAC. Since starting wound VAC, he states that there has been much better improvement. Currently set at 150 mmHg. History of diabetes mellitus which is well-controlled. He reports good protein intake. He feels well and denies any acute concerns at this time. Progress of Wound: No acute concerns at this time. Inferior lateral area is healed/closed. Inferior and superior areas also with some improvement. Objective Data Objective Data Vital Signs: Vital Signs Temp Pulse Resp BP O2 Del Method 97.3 F L 77 18 150/80 H Room Air 02/13/24 08:55 02/13/24 08:55 02/13/24 08:55 02/13/24 08:55 02/13/24 08:55 Oxygen Delivery Method Room Air Weight: 250 lb Body Mass Index (BMI) 36.9 Charges/Coding Procedures Integumentary 111xxx-113xx: 19423 Hannah subq tissue 20 sq cm/< Physical Exam Const alert, oriented x3 and no apparent distress General Appearance: cooperative, comfortable and well kempt HEENT normocephalic, head/scalp atraumatic and hearing grossly normal bilaterally Eyes EOMs intact bilaterally General Eye: normal appearance of both eyes Neck full ROM and supple General: normal visual inspection Resp normal respiratory effort Effort and Inspection: able to speak in complete sentences GI non-tender and non-distended Skin Wounds: wounds noted size Size: See clinical note, bed granulating well, margins well approximated, no odor and open Neuro oriented x3, CN's II-XII intact bilaterally, moves all extremities and no focal motor deficits Psych mental status grossly normal, thought process normal and cooperative Debridement Note Debridement Note Wound debrided: Abdomen ( Inferior ) Type of Debridement: Excisional debridement Anesthesia Used: 4% Lidocaine Solution Depth: Down to and including healthy tissue and in the subcutaneous layer Percentage of wound debrided: 100 Instrument Used: 5mm curette Tissue Removed: Slough and devitalized tissue Severity: Fat Layer Exposed Amount of bleeding with debridement: Mild Bleeding Controlled with: Pressure Patient tolerated procedure: Patient tolerated procedure well Post-Debridement Measurements and Additional Note: Post-Debridement Measurements/Treatment - Nurse 1 - General Ulcer Assessment Start: 01/30/24 11:05 Freq: Status: Active Protocol: JUSTIN Activity Type Activity Date Activity User E-sign Co-sign Detail Recorded Client Recorded Date Recorded By Document 01/30/24 11:05 RB [id number] 01/30/24 11:08 RB Document 02/13/24 08:55 ID [id number] 02/13/24 09:02 ID 01/30/24 02/13/24 11:05 08:55 - Today's Visit Information Type of service Follow-up Visit Follow-up Visit (Physician/SENIOR ENGINEERING TECH (Physician/SENIOR ENGINEERING TECH ) ) Arrival Mode Ambulatory Ambulatory Transfer Assistance None Accompanied by Patient Identification Verified (Name & Yes Yes ) Patient Requires Transmission-Based No Precautions Safety Precautions Fall Prevention Finger Stick Blood Sugar(mg/dl) (if 163 indicated): Blood Sugar Stated by Patient Height and Weight Body Mass Index (BMI) 36.9 36.9 BMI Classification Obese Obese Vital Signs Temperature (97.8 F-99.1 F) 97.8 F 97.3 F L Temperature Source Temporal Temporal Pulse Rate (60-100) 83 77 Pulse Location Monitor Monitor Respiratory Rate (12-18) 18 18 Respiratory rate source Observation Observation Oxygen Delivery Method Room Air Blood Pressure (90/60-120/80) 166/90 H 150/80 H Blood Pressure Mean (mm Hg) 115 103 Source Monitor Monitor Position Semi-Fowlers Sitting Blood Pressure Location Left Arm Left Arm History Since Last Visit- (Skip if this is Patient's initial visit) Have you changed medications since your No last visit? Any new allergies or adverse reactions No Had a fall/change in ADL's that may No increase risk of falls Signs or symptoms of abuse and/or No neglect since last visit Have you been in the hospital since your No last visit? Has dressing in place as prescribed Yes Yes Has compression in place as prescribed No Yes Has offloadiing in place as prescribed No Yes Experienced any changes in pain level or No Yes management Left Footwear Regular Shoe Right Footwear Regular Shoe Pain Scale: 0-10 Numeric Is Patient Pain Free? Yes Yes - Nurse 1 - General Ulcer Measurement Start: 01/30/24 11:05 Freq: Status: Active Protocol: Activity Type Activity Date Activity User E-sign Co-sign Detail Recorded Client Recorded Date Recorded By Document 01/30/24 11:05 RB [id number] 01/30/24 11:08 RB Document 02/13/24 08:55 ID [id number] 02/13/24 09:02 ID 01/30/24 02/13/24 11:05 08:55 Wound Center Nurse 1 #6 lateral inferior abd -Combined with other wound No -Current Size (cm) - Length 0.4 0.1 -Current Size (cm) - Width 0.6 0.1 -Current Size (cm) - Depth 0.6 0.1 -Total Square Cm 0.24 0.01 -Photo Taken No -Epithelialization Large 67-100% -Tunneling No No -Undermining/Tunneling No No -Circular Undermining No No -Exudate Amt Medium None Present -Exudate Type Serosanguineous -Wound Margin Thickened & Flat & Intact Rolled Under -Granulation Amt Medium (34-66%) -Granulation Quality [place] -Slough/Fibrin Yes -Necrosis Amt Medium (34-66%) -Necrotic Tissue Type Adherent Slough -Structure Exposed N/A -Texture (Matilde-wound Skin Appearance) Scarring Assessed -Moisture (Matilde-wound Skin Appearance) Assessed Assessed -Color (Matilde-wound Skin Appearance) Assessed Assessed -Temperature (Matilde-wound Skin No Abnormality No Abnormality Appearance) (Pt Warm) (Pt Warm) -Tenderness on Palpation (Matilde-wound No No Skin Appearance) -Ulcer Cleansing Wound Cleanser Soap and Water -Foul Odor after Cleansing No No -Anesthetic Used 4% Lidocaine 5% Lidocaine Solution Gel 4-ABDOMEN INFERIOR -Combined with other wound No -Current Size (cm) - Length 4 2.5 -Current Size (cm) - Width 1.6 1.5 -Current Size (cm) - Depth 0.1 0.1 -Total Square Cm 6.4 3.75 -Photo Taken No -Tunneling No No -Undermining/Tunneling No No -Circular Undermining No No -Exudate Amt Medium Small -Exudate Type Serosanguineous -Wound Margin Thickened & Flat & Intact Rolled Under -Granulation Amt Medium (34-66%) Medium (34-66%) -Granulation Quality [place] Pale,[place] -Slough/Fibrin Yes -Necrosis Amt Small (1-33%) Medium (34-66%) -Necrotic Tissue Type Adherent Slough Adherent Slough -Structure Exposed N/A -Texture (Matilde-wound Skin Appearance) Assessed, Assessed Scarring -Moisture (Matilde-wound Skin Appearance) Assessed Assessed -Color (Matilde-wound Skin Appearance) Assessed Assessed -Temperature (Matilde-wound Skin No Abnormality No Abnormality Appearance) (Pt Warm) (Pt Warm) -Tenderness on Palpation (Matilde-wound No No Skin Appearance) -Ulcer Cleansing Wound Cleanser Soap and Water -Foul Odor after Cleansing No No -Anesthetic Used 4% Lidocaine 5% Lidocaine Solution Gel 3-ABDOMEN SUPERIOR -Combined with other wound No -Current Size (cm) - Length 4 3 -Current Size (cm) - Width 3 3 -Current Size (cm) - Depth 0.1 0.1 -Total Square Cm 12 9 -Photo Taken No -Tunneling No No -Undermining/Tunneling No No -Circular Undermining No No -Change in Wound Grade/Stage No -Exudate Amt Medium Small -Exudate Type Serosanguineous Serous -Wound Margin Distinct, Flat & Intact Outline Attached -Granulation Amt Medium (34-66%) Large (67-100%) -Granulation Quality [place] Pale,[place] -Slough/Fibrin Yes No -Necrosis Amt Medium (34-66%) Small (1-33%) -Necrotic Tissue Type Adherent Slough -Structure Exposed N/A -Texture (Matilde-wound Skin Appearance) Assessed, Assessed Scarring -Moisture (Matilde-wound Skin Appearance) Assessed Assessed -Color (Matilde-wound Skin Appearance) Assessed Assessed -Temperature (Matilde-wound Skin No Abnormality No Abnormality Appearance) (Pt Warm) (Pt Warm) -Tenderness on Palpation (Matilde-wound No No Skin Appearance) -Ulcer Cleansing Wound Cleanser Soap and Water -Foul Odor after Cleansing No No -Anesthetic Used 4% Lidocaine 5% Lidocaine Solution Gel Lower Limb Edema Present NA WC - Nurse 2 - General Ulcer CM Notes Start: 01/30/24 11:05 Freq: Status: Active Protocol: Activity Type Activity Date Activity User E-sign Co-sign Detail Recorded Client Recorded Date Recorded By Document 01/30/24 11:29 GM [id number] 01/30/24 11:39 GM Edit Result 01/30/24 11:29 GM (1) [id number] 01/31/24 13:58 GM Document 02/13/24 09:23 GM [id number] 02/13/24 09:30 GM (1) 3-ABDOMEN SUPERIOR - Debridement - Subq, 1st 20sq cm Yes => No 01/30/24 02/13/24 11 09:23 Wound Center Nurse 2 #6 lateral inferior abd -Time 11 09:23 -Correct Patient Yes Yes -Correct Side, Site, Position Yes Yes -Correct Procedure Yes -Procedure Performed Yes -Type of Procedure Debridement -Clinical Debridement Subcutaneous -Tissue Removed Subcutaneous -Post Debridement (cm) - Length 0.3 -Post Debridement (cm) - Width 0.5 -Post Debridement (cm) - Depth 0.8 -Total Square (Post) (cm) 0.15 -Area of Debridement (cm) - Length 0.3 -Area of Debridement (cm) - Width 0.5 -Total Square (Area) (cm) 0.15 -Tunneling No No -Undermining/Tunneling No No -Circular Undermining No No -Wound/Ulcer Outcome Not Healed Healed- Epithelialized -Ulcer Cleansing Rinsed/ Irrigated with Saline -Foul Odor after Cleansing No -Bioengineered Tissue No -Bleeding Controlled with Pressure -Treatment Response Procedure Tolerated Well -Debridement - Subq, 1st 20sq cm Yes 4-ABDOMEN INFERIOR -Time 09:24 -Correct Patient Yes Yes -Correct Side, Site, Position Yes Yes -Correct Procedure Yes Yes -Procedure Performed Yes Yes -Type of Procedure Debridement Debridement -Clinical Debridement Subcutaneous Subcutaneous -Tissue Removed Subcutaneous Subcutaneous -Post Debridement (cm) - Length 3.0 2.1 -Post Debridement (cm) - Width 1.6 1.3 -Post Debridement (cm) - Depth 0.1 0.1 -Total Square (Post) (cm) 4.80 2.73 -Area of Debridement (cm) - Length 3.0 2.1 -Area of Debridement (cm) - Width 1.6 1.3 -Total Square (Area) (cm) 4.80 2.73 -Tunneling No No -Undermining/Tunneling No No -Circular Undermining No No -Wound/Ulcer Outcome Not Healed Not Healed -Ulcer Cleansing Rinsed/ Rinsed/ Irrigated with Irrigated with Saline Saline -Foul Odor after Cleansing No No -Bioengineered Tissue No No -Bleeding Controlled with Pressure Pressure -Treatment Response Procedure Tolerated Well -Debridement - Subq, 1st 20sq cm No No 3-ABDOMEN SUPERIOR -Time 11:29 09:24 -Correct Patient Yes Yes -Correct Side, Site, Position Yes Yes -Correct Procedure Yes Yes -Procedure Performed Yes Yes -Type of Procedure Debridement Debridement -Clinical Debridement Subcutaneous Subcutaneous -Tissue Removed Subcutaneous Subcutaneous -Post Debridement (cm) - Length 3.0 3.0 -Post Debridement (cm) - Width 2.8 2.5 -Post Debridement (cm) - Depth 0.1 0.1 -Total Square (Post) (cm) 8.40 7.50 -Area of Debridement (cm) - Length 3.0 3.0 -Area of Debridement (cm) - Width 2.8 2.5 -Total Square (Area) (cm) 8.40 7.50 -Tunneling No No -Undermining/Tunneling No No -Circular Undermining No No -Wound/Ulcer Outcome Not Healed Not Healed -Ulcer Cleansing Rinsed/ Rinsed/ Irrigated with Irrigated with Saline Saline -Foul Odor after Cleansing No No -Bioengineered Tissue No No -Bleeding Controlled with Pressure Pressure -Treatment Response Procedure Tolerated Well -Debridement - Subq, 1st 20sq cm No Yes Pain Scale: 0-10 Numeric Is Patient Pain Free? Yes Yes - Nurse 3 - General Ulcer D/C NN Start: 01/30/24 11:05 Freq: Status: Active Protocol: Activity Type Activity Date Activity User E-sign Co-sign Detail Recorded Client Recorded Date Recorded By Document 01/30/24 11:55 [id number] 01/30/24 11:56 Document 02/13/24 09:40 RB [id number] 02/13/24 09:44 RB 01/30/24 02/13/24 11:55 09:40 Wound Care Center Nurse 3 #6 lateral inferior abd -Ulcer Cleansing Rinsed/ Rinsed/ Irrigated with Irrigated with Saline Saline -Foul Odor after Cleansing No -Other Dressing copper dressing copper dressing orange side down/ ABD -Primary Dressing Covered/Secured with Secured with Tape -Other Covering adb pad 4-ABDOMEN INFERIOR -Ulcer Cleansing Rinsed/ Irrigated with Saline -Foul Odor after Cleansing No -Other Dressing copper dressing copper dressing -Primary Dressing Covered/Secured with Dry Gauze, Secured with Tape -Other Covering abdomen pad 3-ABDOMEN SUPERIOR -Ulcer Cleansing Rinsed/ Irrigated with Saline -Foul Odor after Cleansing No -Other Dressing copper dressing copper dressings -Primary Dressing Covered/Secured with Dry Gauze, Secured with Tape -Other Covering abd pad Treatment Response Procedure Tolerated Well Pain Scale: 0-10 Numeric Is Patient Pain Free? Yes Yes WC - Visit Discharge Discharge Condition Stable Stable Ambulatory Status Ambulatory Ambulatory Transportation Private Auto Private Auto Accompanied by Medication Reconcilliation completed & No provided to patient/care provider Clinical Summary of Care Provided Yes Additional Wound Wound debrided: Abdomen ( Superior ) Type of Debridement: Excisional debridement Anesthesia Used: 4% Lidocaine Solution Depth: Down to and including healthy tissue and in the subcutaneous layer Percentage of wound debrided: 100 Instrument Used: 5mm curette Tissue Removed: Slough and devitalized tissue Severity: Fat Layer Exposed Amount of bleeding with debridement: Mild Bleeding Controlled with: Pressure Patient tolerated procedure: Patient tolerated procedure well Assessment/Plan Assessment/Plan (1) Non-healing surgical wound: CODE(S): T81.89XA - Other complications of procedures, not elsewhere classified, initial encounter QUALIFIERS: Encounter type: initial encounter Qualified Code(s): T81.89XA - Other complications of procedures, not elsewhere classified, initial encounter (2) Type 2 diabetes mellitus: CODE(S): E11.9 - Type 2 diabetes mellitus without complications QUALIFIERS: Diabetes mellitus fpc insulin use: without fpc use Diabetes mellitus complication status: with skin complications Diabetes mellitus complication detail: with other skin complication Qualified Code(s): E11.628 - Type 2 diabetes mellitus with other skin complications (3) History of colostomy reversal: CODE(S): Z98.890 - Other specified postprocedural states (4) Surgical wound breakdown: CODE(S): T81.31XA - Disruption of external operation (surgical) wound, not elsewhere classified, initial encounter QUALIFIERS: Encounter type: initial encounter Qualified Code(s): T81.31XA - Disruption of external operation (surgical) wound, not elsewhere classified, initial encounter PLAN: Plan Debridement done as documented above, procedure was well-tolerated. Inferior lateral area is healed and other wounds/ulcers continue to improve. No new c oncerns reported. Continue copper dressing to superior and inferior ulcers. Apply orange side down ensuring dressing covers the periwound area as well. Moisten lightly and cover with Adaptic and ABD. Leave dressing in place for 3 days. They were advised to moisten very well prior to changing, they voiced understanding. May change more often if concern for drainage. Continue optimal diabetes control and dietary protein intake. Continue other chronic wound care management. His questions were answered and he was advised to let us know if he has any further questions or concerns. Follow-up in 2 weeks. This note was generated with [employer] dictation software. It may contain incorrect words, spelling, and punctuation that were not noted in checking the note before signing.
[2024-02-20 08:25] VITALS: BP 164/86; PULSE 82; RESP 18; TEMP 36.1; BMI 36.9
--- NOTE | 2024-02-20 09:17 | PN.PCM_ITS ---
History of Present Illness Date of Service: 02/20/24 Chief Complaint: Non healing surgical wound History of Wound: Mr. Duque is a 62 yo Last seen here over a month ago. He had been discharged due to plan for closure following colostomy reversal. Surgery was uneventful however, less than a week after surgery, he states that his wound breakdown/dehisced. Initially applied Dakin's dressing but subsequently, started a wound VAC. Since starting wound VAC, he states that there has been much better improvement. Currently set at 150 mmHg. History of diabetes mellitus which is well-controlled. He reports good protein intake. He feels well and denies any acute concerns at this time. Progress of Wound: No acute concerns reported at this time. Inferior lateral ulcer stays healed. Objective Data Objective Data Vital Signs: Vital Signs Temp Pulse Resp BP O2 Del Method 97.0 F L 82 18 164/86 H Room Air 02/20/24 08:25 02/20/24 08:25 02/20/24 08:25 02/20/24 08:25 02/20/24 08:25 Oxygen Delivery Method Room Air Weight: 250 lb Body Mass Index (BMI) 36.9 Charges/Coding Procedures Integumentary 111xxx-113xx: [id number] Hannah subq tissue 20 sq cm/< Physical Exam Const alert, oriented x3 and no apparent distress General Appearance: cooperative, comfortable and well kempt HEENT normocephalic, head/scalp atraumatic and hearing grossly normal bilaterally Eyes EOMs intact bilaterally General Eye: normal appearance of both eyes Neck full ROM and supple General: normal visual inspection Resp normal respiratory effort Effort and Inspection: able to speak in complete sentences GI non-tender and non-distended Skin Wounds: wounds noted size Size: See clinical note, bed granulating well, margins well approximated, no odor and open Neuro oriented x3, CN's II-XII intact bilaterally, moves all extremities and no focal motor deficits Psych mental status grossly normal, thought process normal and cooperative Debridement Note Debridement Note Wound debrided: Abdomen (superior) Type of Debridement: Excisional debridement Anesthesia Used: 5% Lidocaine Gel Depth: Down to and including healthy tissue and in the subcutaneous layer Percentage of wound debrided: 100 Instrument Used: 5mm curette Tissue Removed: Slough and devitalized tissue Severity: Fat Layer Exposed Amount of bleeding with debridement: Mild Bleeding Controlled with: Pressure Patient tolerated procedure: Patient tolerated procedure well Post-Debridement Measurements and Additional Note: Post-Debridement Measurements/Treatment WC - Nurse 1 - General Ulcer Assessment Start: 01/30/24 11:05 Freq: Status: Active Protocol: JUSTIN Activity Type Activity Date Activity User E-sign Co-sign Detail Recorded Client Recorded Date Recorded By Document 01/30/24 11:05 RB [id number] 01/30/24 11:08 RB Document 02/13/24 08:55 MT [id number] 02/13/24 09:02 MT Document 02/20/24 08:25 KW [id number] 02/20/24 08:31 KW 01/30/24 02/13/24 02/20/24 11:05 08:55 08:25 WC - Today's Visit Information Type of service Follow-up Visit Follow-up Visit Follow-up Visit (Physician/DIESEL ENGINE II PIPE FITTER (Physician/DIESEL ENGINE II PIPE FITTER (Physician/DIESEL ENGINE II PIPE FITTER ) ) ) Arrival Mode Ambulatory Ambulatory Ambulatory Transfer Assistance None Accompanied by Patient Identification Verified (Name & Yes Yes Yes ) Patient Requires Transmission-Based No Precautions Safety Precautions Fall Prevention Finger Stick Blood Sugar(mg/dl) (if 163 indicated): Blood Sugar Stated by Patient Height and Weight Body Mass Index (BMI) 36.9 36.9 36.9 BMI Classification Obese Obese Obese Vital Signs Temperature (97.8 F-99.1 F) 97.8 F 97.3 F L 97.0 F L Temperature Source Temporal Temporal Temporal Pulse Rate (60-100) 83 77 82 Pulse Location Monitor Monitor Monitor Respiratory Rate (12-18) 18 18 18 Respiratory rate source Observation Observation Observation Oxygen Delivery Method Room Air Room Air Blood Pressure (90/60-120/80) 166/90 H 150/80 H 164/86 H Blood Pressure Mean (mm Hg) 115 103 112 Source Monitor Monitor Monitor Position Semi-Fowlers Sitting Semi-Fowlers Blood Pressure Location Left Arm Left Arm Left Arm History Since Last Visit- (Skip if this is Patient's initial visit) Have you changed medications since your No No last visit? Any new allergies or adverse reactions No No Had a fall/change in ADL's that may No No increase risk of falls Signs or symptoms of abuse and/or No No neglect since last visit Have you been in the hospital since your No No last visit? Has dressing in place as prescribed Yes Yes Yes Has compression in place as prescribed No Yes N/A Has offloadiing in place as prescribed No Yes N/A Experienced any changes in pain level or No Yes No management Left Footwear Regular Shoe Regular Shoe Right Footwear Regular Shoe Regular Shoe Pain Scale: 0-10 Numeric Is Patient Pain Free? Yes Yes Yes WC - Nurse 1 - General Ulcer Measurement Start: 01/30/24 11:05 Freq: Status: Active Protocol: Activity Type Activity Date Activity User E-sign Co-sign Detail Recorded Client Recorded Date Recorded By Document 01/30/24 11:05 RB [id number] 01/30/24 11:08 RB Document 02/13/24 08:55 MT [id number] 02/13/24 09:02 MT Document 02/20/24 08:25 KW [id number] 02/20/24 08:31 KW 01/30/24 02/13/24 02/20/24 11:05 08:55 08:25 Wound Center Nurse 1 #6 lateral inferior abd -Combined with other wound No -Current Size (cm) - Length 0.4 0.1 -Current Size (cm) - Width 0.6 0.1 -Current Size (cm) - Depth 0.6 0.1 -Total Square Cm 0.24 0.01 -Photo Taken No -Epithelialization Large 67-100% -Tunneling No No -Undermining/Tunneling No No -Circular Undermining No No -Exudate Amt Medium None Present -Exudate Type Serosanguineous -Wound Margin Thickened & Flat & Intact Rolled Under -Granulation Amt Medium (34-66%) -Granulation Quality [place] -Slough/Fibrin Yes -Necrosis Amt Medium (34-66%) -Necrotic Tissue Type Adherent Slough -Structure Exposed N/A -Texture (Matilde-wound Skin Appearance) Scarring Assessed -Moisture (Matilde-wound Skin Appearance) Assessed Assessed -Color (Matilde-wound Skin Appearance) Assessed Assessed -Temperature (Matilde-wound Skin No Abnormality No Abnormality Appearance) (Pt Warm) (Pt Warm) -Tenderness on Palpation (Matilde-wound No No Skin Appearance) -Ulcer Cleansing Wound Cleanser Soap and Water -Foul Odor after Cleansing No No -Anesthetic Used 4% Lidocaine 5% Lidocaine Solution Gel 4-ABDOMEN INFERIOR -Combined with other wound No -Current Size (cm) - Length 4 2.5 3.2 -Current Size (cm) - Width 1.6 1.5 1.1 -Current Size (cm) - Depth 0.1 0.1 0.1 -Total Square Cm 6.4 3.75 3.52 -Date of Last Picture (Recall this 02/20/24 field) -Photo Taken No -Tunneling No No -Undermining/Tunneling No No -Circular Undermining No No -Exudate Amt Medium Small Small -Exudate Type Serosanguineous Serosanguineous -Wound Margin Thickened & Flat & Intact Distinct, Rolled Under Outline Attached -Granulation Amt Medium (34-66%) Medium (34-66%) Large (67-100%) -Granulation Quality [place] Pale,[place] -Slough/Fibrin Yes -Necrosis Amt Small (1-33%) Medium (34-66%) -Necrotic Tissue Type Adherent Slough Adherent Slough -Structure Exposed N/A -Texture (Matilde-wound Skin Appearance) Assessed, Assessed Assessed, Scarring Scarring -Moisture (Matilde-wound Skin Appearance) Assessed Assessed Assessed -Color (Matilde-wound Skin Appearance) Assessed Assessed Assessed -Temperature (Matilde-wound Skin No Abnormality No Abnormality No Abnormality Appearance) (Pt Warm) (Pt Warm) (Pt Warm) -Tenderness on Palpation (Matilde-wound No No No Skin Appearance) -Ulcer Cleansing Wound Cleanser Soap and Water Soap and Water -Foul Odor after Cleansing No No No -Anesthetic Used 4% Lidocaine 5% Lidocaine 4% Lidocaine Solution Gel Solution 3-ABDOMEN SUPERIOR -Combined with other wound No -Current Size (cm) - Length 4 3 3.5 -Current Size (cm) - Width 3 3 2.7 -Current Size (cm) - Depth 0.1 0.1 0.1 -Total Square Cm 12 9 9.45 -Date of Last Picture (Recall this 02/20/24 field) -Photo Taken No -Tunneling No No -Undermining/Tunneling No No -Circular Undermining No No -Change in Wound Grade/Stage No -Exudate Amt Medium Small Small -Exudate Type Serosanguineous Serous Serosanguineous -Wound Margin Distinct, Flat & Intact Distinct, Outline Outline Attached Attached -Granulation Amt Medium (34-66%) Large (67-100%) Large (67-100%) -Granulation Quality [place] Pale,[place] -Slough/Fibrin Yes No -Necrosis Amt Medium (34-66%) Small (1-33%) -Necrotic Tissue Type Adherent Slough -Structure Exposed N/A -Texture (Matilde-wound Skin Appearance) Assessed, Assessed Assessed, Scarring Scarring -Moisture (Matilde-wound Skin Appearance) Assessed Assessed Assessed -Color (Matilde-wound Skin Appearance) Assessed Assessed Assessed -Temperature (Matilde-wound Skin No Abnormality No Abnormality No Abnormality Appearance) (Pt Warm) (Pt Warm) (Pt Warm) -Tenderness on Palpation (Matilde-wound No No No Skin Appearance) -Ulcer Cleansing Wound Cleanser Soap and Water Soap and Water -Foul Odor after Cleansing No No No -Anesthetic Used 4% Lidocaine 5% Lidocaine 4% Lidocaine Solution Gel Solution Lower Limb Edema Present NA WC - Nurse 2 - General Ulcer CM Notes Start: 01/30/24 11:05 Freq: Status: Active Protocol: Activity Type Activity Date Activity User E-sign Co-sign Detail Recorded Client Recorded Date Recorded By Document 01/30/24 11:29 GM [id number] 01/30/24 11:39 GM Edit Result 01/30/24 11:29 GM (1) [id number] 01/31/24 13:58 GM Document 02/13/24 09:23 GM [id number] 02/13/24 09:30 GM Document 02/20/24 08:51 GM [id number] 02/20/24 09:03 GM (1) 3-ABDOMEN SUPERIOR - Debridement - Subq, 1st 20sq cm Yes => No 01/30/24 02/13/24 02/20/24 11:29 09:23 08:51 Wound Center Nurse 2 #6 lateral inferior abd -Time 11:29 09:23 -Correct Patient Yes Yes -Correct Side, Site, Position Yes Yes -Correct Procedure Yes -Procedure Performed Yes -Type of Procedure Debridement -Clinical Debridement Subcutaneous -Tissue Removed Subcutaneous -Post Debridement (cm) - Length 0.3 -Post Debridement (cm) - Width 0.5 -Post Debridement (cm) - Depth 0.8 -Total Square (Post) (cm) 0.15 -Area of Debridement (cm) - Length 0.3 -Area of Debridement (cm) - Width 0.5 -Total Square (Area) (cm) 0.15 -Tunneling No No -Undermining/Tunneling No No -Circular Undermining No No -Wound/Ulcer Outcome Not Healed Healed- Epithelialized -Ulcer Cleansing Rinsed/ Irrigated with Saline -Foul Odor after Cleansing No -Bioengineered Tissue No -Bleeding Controlled with Pressure -Treatment Response Procedure Tolerated Well -Debridement - Subq, 1st 20sq cm Yes 4-ABDOMEN INFERIOR -Time 11: 09:24 08:52 -Correct Patient Yes Yes Yes -Correct Side, Site, Position Yes Yes Yes -Correct Procedure Yes Yes Yes -Procedure Performed Yes Yes Yes -Type of Procedure Debridement Debridement Debridement -Clinical Debridement Subcutaneous Subcutaneous Subcutaneous -Tissue Removed Subcutaneous Subcutaneous Subcutaneous -Post Debridement (cm) - Length 3.0 2.1 2.0 -Post Debridement (cm) - Width 1.6 1.3 1.2 -Post Debridement (cm) - Depth 0.1 0.1 0.1 -Total Square (Post) (cm) 4.80 2.73 2.40 -Area of Debridement (cm) - Length 3.0 2.1 2.0 -Area of Debridement (cm) - Width 1.6 1.3 1.2 -Total Square (Area) (cm) 4.80 2.73 2.40 -Tunneling No No No -Undermining/Tunneling No No No -Circular Undermining No No No -Wound/Ulcer Outcome Not Healed Not Healed Not Healed -Ulcer Cleansing Rinsed/ Rinsed/ Rinsed/ Irrigated with Irrigated with Irrigated with Saline Saline Saline -Foul Odor after Cleansing No No No -Bioengineered Tissue No No No -Bleeding Controlled with Pressure Pressure Pressure -Treatment Response Procedure Procedure Tolerated Well Tolerated Well -Debridement - Subq, 1st 20sq cm No No No 3-ABDOMEN SUPERIOR -Time : 09:24 08:53 -Correct Patient Yes Yes Yes -Correct Side, Site, Position Yes Yes Yes -Correct Procedure Yes Yes Yes -Procedure Performed Yes Yes Yes -Type of Procedure Debridement Debridement Debridement -Clinical Debridement Subcutaneous Subcutaneous Subcutaneous -Tissue Removed Subcutaneous Subcutaneous Subcutaneous -Post Debridement (cm) - Length 3.0 3.0 3.0 -Post Debridement (cm) - Width 2.8 2.5 2.8 -Post Debridement (cm) - Depth 0.1 0.1 0.1 -Total Square (Post) (cm) 8.40 7.50 8.40 -Area of Debridement (cm) - Length 3.0 3.0 3.0 -Area of Debridement (cm) - Width 2.8 2.5 2.8 -Total Square (Area) (cm) 8.40 7.50 8.40 -Tunneling No No No -Undermining/Tunneling No No No -Circular Undermining No No No -Wound/Ulcer Outcome Not Healed Not Healed Not Healed -Ulcer Cleansing Rinsed/ Rinsed/ Rinsed/ Irrigated with Irrigated with Irrigated with Saline Saline Saline -Foul Odor after Cleansing No No No -Bioengineered Tissue No No No -Bleeding Controlled with Pressure Pressure Pressure -Treatment Response Procedure Procedure Tolerated Well Tolerated Well -Debridement - Subq, 1st 20sq cm No Yes Yes Pain Scale: 0-10 Numeric Is Patient Pain Free? Yes Yes Yes - Nurse 3 - General Ulcer D/C NN Start: 01/30/24 11:05 Freq: Status: Active Protocol: Activity Type Activity Date Activity User E-sign Co-sign Detail Recorded Client Recorded Date Recorded By Document 01/30/24 11:55 [id number] 01/30/24 11:56 Document 02/13/24 09:40 RB [id number] 02/13/24 09:44 RB 01/30/24 02/13/24 11:55 09:40 Wound Care Center Nurse 3 #6 lateral inferior abd -Ulcer Cleansing Rinsed/ Rinsed/ Irrigated with Irrigated with Saline Saline -Foul Odor after Cleansing No -Other Dressing copper dressing copper dressing orange side down/ ABD -Primary Dressing Covered/Secured with Secured with Tape -Other Covering adb pad 4-ABDOMEN INFERIOR -Ulcer Cleansing Rinsed/ Irrigated with Saline -Foul Odor after Cleansing No -Other Dressing copper dressing copper dressing -Primary Dressing Covered/Secured with Dry Gauze, Secured with Tape -Other Covering abdomen pad 3-ABDOMEN SUPERIOR -Ulcer Cleansing Rinsed/ Irrigated with Saline -Foul Odor after Cleansing No -Other Dressing copper dressing copper dressings -Primary Dressing Covered/Secured with Dry Gauze, Secured with Tape -Other Covering abd pad Treatment Response Procedure Tolerated Well Pain Scale: 0-10 Numeric Is Patient Pain Free? Yes Yes - Visit Discharge Discharge Condition Stable Stable Ambulatory Status Ambulatory Ambulatory Transportation Private Auto Private Auto Accompanied by Medication Reconcilliation completed & No provided to patient/care provider Clinical Summary of Care Provided Yes Additional Wound Wound debrided: Abdomen (inferior) Type of Debridement: Excisional debridement Anesthesia Used: 5% Lidocaine Gel Depth: Down to and including healthy tissue and in the subcutaneous layer Percentage of wound debrided: 100 Instrument Used: 5mm curette Tissue Removed: Slough and devitalized tissue Severity: Fat Layer Exposed Amount of bleeding with debridement: Mild Bleeding Controlled with: Pressure Patient tolerated procedure: Patient tolerated procedure well Assessment/Plan Assessment/Plan (1) Non-healing surgical wound: CODE(S): T81.89XA - Other complications of procedures, not elsewhere classified, initial encounter QUALIFIERS: Encounter type: initial encounter Qualified Code(s): T81.89XA - Other complications of procedures, not elsewhere classified, initial encounter (2) Type 2 diabetes mellitus: CODE(S): E11.9 - Type 2 diabetes mellitus without complications QUALIFIERS: Diabetes mellitus nursing home insulin use: without nursing home use Diabetes mellitus complication status: with skin complications Diabetes mellitus complication detail: with other skin complication Qualified Code(s): E11.628 - Type 2 diabetes mellitus with other skin complications (3) History of colostomy reversal: CODE(S): Z98.890 - Other specified postprocedural states (4) Surgical wound breakdown: CODE(S): T81.31XA - Disruption of external operation (surgical) wound, not elsewhere classified, initial encounter QUALIFIERS: Encounter type: initial encounter Qualified Code(s): T81.31XA - Disruption of external operation (surgical) wound, not elsewhere classified, initial encounter PLAN: Plan Debridement done as documented above, procedure was well-tolerated. Inferior lateral area stays healed. Other ulcers are largely stable. No new concerns reported. Continue copper dressing to superior and inferior ulcers. Apply orange side down ensuring dressing covers the periwound area as well. Moisten lightly and cover with Adaptic and ABD. Leave dressing in place for 3 days. Again educated on moistening prior to changing, some areas of skin tear noted. May change more often if there is concern for drainage. Continue optimal diabetes control and dietary protein intake. Continue hydrocortisone as needed to surrounding area of dermatitis, new prescription/refill sent. Continue other chronic wound care management. His questions were answered and he was advised to let us know if he has any further questions or concerns. Follow-up in a week. This note was generated with [employer] dictation software. It may contain incorrect words, spelling, and punctuation that were not noted in checking the note before signing.
--- NOTE | 2024-03-02 11:49 | WC ---
PHOTO 02/20/24 INF ABD
--- NOTE | 2024-03-02 11:49 | WC ---
PHOTO 02/20/24 SUP ABD
== END 2024-02-25 23:59 | disposition home or self-care (01) ==
LOC: WC 08:15
PROVIDERS: PCP Internal Medicine; Referring Provider Internal Medicine; Visit Provider Internal Medicine
DX: T81.89XA Other complications of procedures, not elsewhere classified, initial encounter (principal); E11.628 Type 2 diabetes mellitus with other skin complications; T81.31XA Disruption of external operation (surgical) wound, not elsewhere classified, initial encounter; Z98.890 Other specified postprocedural states
CPT/HCPCS: 11042

== ENCOUNTER 2024-03-26 08:45 | Outpatient (RCR) | payer OTHER, SELFPAY ==
[2024-02-26 00:13] VITALS: BP 143/76; PULSE 84; RESP 16; TEMP 36.6; BMI 36.9
[2024-02-27 08:43] VITALS: BP 159/89; PULSE 84; RESP 18; TEMP 35.6; BMI 36.9
--- NOTE | 2024-02-27 11:05 | PCM.WC.PN ---
History of Present Illness Date of Service: 02/27/24 Chief Complaint: Non healing surgical wound History of Wound: Mr. Duque is a 62 yo Last seen here over a month ago. He had been discharged due to plan for closure following colostomy reversal. Surgery was uneventful however, less than a week after surgery, he states that his wound breakdown/dehisced. Initially applied Dakin's dressing but subsequently, started a wound VAC. Since starting wound VAC, he states that there has been much better improvement. Currently set at 150 mmHg. History of diabetes mellitus which is well-controlled. He reports good protein intake. He feels well and denies any acute concerns at this time. Progress of Wound: No new concerns reported at this time. Some improvement noted. Objective Data Objective Data Vital Signs: Vital Signs Temp Pulse Resp BP O2 Del Method 96.1 F L 84 18 159/89 H Room Air 02/27/24 08:43 02/27/24 08:43 02/27/24 08:43 02/27/24 08:43 02/27/24 08:43 Oxygen Delivery Method Room Air Weight: 250 lb Body Mass Index (BMI) 36.9 Charges/Coding Procedures Integumentary 111xxx-113xx: [id number] Hannah subq tissue 20 sq cm/< Physical Exam Const alert, oriented x3 and no apparent distress General Appearance: cooperative, comfortable and well kempt HEENT normocephalic, head/scalp atraumatic and hearing grossly normal bilaterally Eyes EOMs intact bilaterally General Eye: normal appearance of both eyes Neck full ROM and supple General: normal visual inspection Resp normal respiratory effort Effort and Inspection: able to speak in complete sentences GI non-tender and non-distended Skin Wounds: wounds noted size Size: See clinical note, bed granulating well, margins well approximated, no odor and open Neuro oriented x3, CN's II-XII intact bilaterally, moves all extremities and no focal motor deficits Psych mental status grossly normal, thought process normal and cooperative Debridement Note Debridement Note Wound debrided: Abdomen (superior) Type of Debridement: Excisional debridement Anesthesia Used: 4% Lidocaine Solution Depth: Down to and including healthy tissue Percentage of wound debrided: 100 Instrument Used: 5mm curette Tissue Removed: Slough and devitalized tissue Severity: Fat Layer Exposed Amount of bleeding with debridement: Mild Bleeding Controlled with: Pressure Patient tolerated procedure: Patient tolerated procedure well Post-Debridement Measurements and Additional Note: Post-Debridement Measurements/Treatment [email or web address] - Nurse 1 - General Ulcer Assessment Start: 02/27/24 08:43 Freq: Status: Active Protocol: JUSTIN Activity Type Activity Date Activity User E-sign Co-sign Detail Recorded Client Recorded Date Recorded By Document 02/27/24 08:43 SOPHIE [id number] 02/27/24 08:54 02/27/24 08:43 WC - Today's Visit Information Type of service 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 ) Arrival Mode Ambulatory Patient Identification Verified (Name & Yes ) Height and Weight Body Mass Index (BMI) 36.9 BMI Classification Obese Vital Signs Temperature (97.8 F-99.1 F) 96.1 F L Temperature Source Temporal Pulse Rate (60-100) 84 Pulse Location Monitor Respiratory Rate (12-18) 18 Respiratory rate source Observation Oxygen Delivery Method Room Air Blood Pressure (90/60-120/80) 159/89 H Blood Pressure Mean (mm Hg) 112 Source Monitor Position Semi-Fowlers Blood Pressure Location Left Arm History Since Last Visit- (Skip if this is Patient's initial visit) Have you changed medications since your No last visit? Any new allergies or adverse reactions No Had a fall/change in ADL's that may No increase risk of falls Signs or symptoms of abuse and/or No neglect since last visit Have you been in the hospital since your No last visit? Has dressing in place as prescribed Yes Has compression in place as prescribed N/A Has offloadiing in place as prescribed N/A Experienced any changes in pain level or No management Left Footwear Regular Shoe Right Footwear Regular Shoe Pain Scale: 0-10 Numeric Is Patient Pain Free? Yes - Nurse 1 - General Ulcer Measurement Start: 02/27/24 08:43 Freq: Status: Active Protocol: Activity Type Activity Date Activity User E-sign Co-sign Detail Recorded Client Recorded Date Recorded By Document 02/27/24 08:43 SOPHIE [id number] 02/27/24 08:54 02/27/24 08:43 Wound Center Nurse 1 4-ABDOMEN INFERIOR -Current Size (cm) - Length 3 -Current Size (cm) - Width 2.5 -Current Size (cm) - Depth 0.1 -Total Square Cm 7.5 -Date of Last Picture (Recall this 02/27/24 field) -Exudate Amt Small -Exudate Type Serosanguineous -Wound Margin Distinct, Outline Attached -Granulation Amt Large (67-100%) -Granulation Quality [place] -Texture (Matilde-wound Skin Appearance) Assessed -Moisture (Matilde-wound Skin Appearance) Assessed -Color (Matilde-wound Skin Appearance) Assessed -Temperature (Matilde-wound Skin No Abnormality Appearance) (Pt Warm) -Tenderness on Palpation (Matilde-wound No Skin Appearance) -Ulcer Cleansing Rinsed/ Irrigated with Saline -Foul Odor after Cleansing No -Anesthetic Used 5% Lidocaine Gel 3-ABDOMEN SUPERIOR -Current Size (cm) - Length 2.2 -Current Size (cm) - Width 1.1 -Current Size (cm) - Depth 0.1 -Total Square Cm 2.42 -Date of Last Picture (Recall this 02/27/24 field) -Exudate Amt Small -Exudate Type Serosanguineous -Wound Margin Distinct, Outline Attached -Granulation Amt Large (67-100%) -Granulation Quality [place] -Necrosis Amt Small (1-33%) -Necrotic Tissue Type Adherent Slough -Texture (Matilde-wound Skin Appearance) Assessed -Moisture (Matilde-wound Skin Appearance) Assessed -Color (Matilde-wound Skin Appearance) Assessed -Temperature (Matilde-wound Skin No Abnormality Appearance) (Pt Warm) -Tenderness on Palpation (Matilde-wound No Skin Appearance) -Ulcer Cleansing Rinsed/ Irrigated with Saline -Foul Odor after Cleansing No -Anesthetic Used 5% Lidocaine Gel WC - Nurse 2 - General Ulcer CM Notes Start: 02/27/24 08:43 Freq: Status: Active Protocol: Activity Type Activity Date Activity User E-sign Co-sign Detail Recorded Client Recorded Date Recorded By Document 02/27/24 09:17 [id number] 02/27/24 09:27 02/27/24 09:17 Wound Center Nurse 2 4-ABDOMEN INFERIOR -Time 09:18 -Correct Patient Yes -Correct Side, Site, Position Yes -Correct Procedure Yes -Procedure Performed Yes -Type of Procedure Debridement -Clinical Debridement Subcutaneous -Tissue Removed Subcutaneous -Post Debridement (cm) - Length 1.7 -Post Debridement (cm) - Width 1.1 -Post Debridement (cm) - Depth 0.1 -Total Square (Post) (cm) 1.87 -Area of Debridement (cm) - Length 1.7 -Area of Debridement (cm) - Width 1.1 -Total Square (Area) (cm) 1.87 -Tunneling No -Undermining/Tunneling No -Circular Undermining No -Wound/Ulcer Outcome Not Healed -Ulcer Cleansing Rinsed/ Irrigated with Saline -Foul Odor after Cleansing No -Bioengineered Tissue No -Bleeding Controlled with Pressure -Treatment Response Procedure Tolerated Well -Debridement - Subq, 1st 20sq cm No 3-ABDOMEN SUPERIOR -Time 09:19 -Correct Patient Yes -Correct Side, Site, Position Yes -Correct Procedure Yes -Procedure Performed Yes -Type of Procedure Debridement -Clinical Debridement Subcutaneous -Tissue Removed Subcutaneous -Post Debridement (cm) - Length 3.2 -Post Debridement (cm) - Width 2.2 -Post Debridement (cm) - Depth 0.1 -Total Square (Post) (cm) 7.04 -Area of Debridement (cm) - Length 3.2 -Area of Debridement (cm) - Width 2.2 -Total Square (Area) (cm) 7.04 -Tunneling No -Undermining/Tunneling No -Circular Undermining No -Wound/Ulcer Outcome Not Healed -Ulcer Cleansing Rinsed/ Irrigated with Saline -Foul Odor after Cleansing No -Bioengineered Tissue No -Bleeding Controlled with Pressure -Treatment Response Procedure Tolerated Well -Debridement - Subq, 1st 20sq cm Yes Pain Scale: 0-10 Numeric Is Patient Pain Free? Yes - Nurse 3 - General Ulcer D/C NN Start: 02/27/24 08:43 Freq: Status: Active Protocol: Activity Type Activity Date Activity User E-sign Co-sign Detail Recorded Client Recorded Date Recorded By Document 02/27/24 09:31 [place] [id number] 02/27/24 09:40 [place] 02/27/24 09:31 Wound Care Center Nurse 3 4-ABDOMEN INFERIOR -Other Dressing copper, abd, adaptic -Primary Dressing Covered/Secured with Secured with Tape Pain Scale: 0-10 Numeric Is Patient Pain Free? Yes - Visit Discharge Discharge Condition Stable Ambulatory Status Ambulatory Transportation Private Auto Medication Reconcilliation completed & No provided to patient/care provider Clinical Summary of Care Provided Yes Additional Wound Wound debrided: Abdomen (inferior) Type of Debridement: Excisional debridement Anesthesia Used: 4% Lidocaine Solution Depth: Down to and including healthy tissue and in the subcutaneous layer Percentage of wound debrided: 100 Instrument Used: 5mm curette Tissue Removed: Slough and devitalized tissue Severity: Fat Layer Exposed Amount of bleeding with debridement: Mild Bleeding Controlled with: Pressure Patient tolerated procedure: Patient tolerated procedure well Assessment/Plan Assessment/Plan (1) Non-healing surgical wound: CODE(S): T81.89XA - Other complications of procedures, not elsewhere classified, initial encounter QUALIFIERS: Encounter type: initial encounter Qualified Code(s): T81.89XA - Other complications of procedures, not elsewhere classified, initial encounter (2) Type 2 diabetes mellitus: CODE(S): E11.9 - Type 2 diabetes mellitus without complications QUALIFIERS: Diabetes mellitus nursing home insulin use: without nursing home use Diabetes mellitus complication status: with skin complications Diabetes mellitus complication detail: with other skin complication Qualified Code(s): E11.628 - Type 2 diabetes mellitus with other skin complications (3) History of colostomy reversal: CODE(S): Z98.890 - Other specified postprocedural states (4) Surgical wound breakdown: CODE(S): T81.31XA - Disruption of external operation (surgical) wound, not elsewhere classified, initial encounter QUALIFIERS: Encounter type: initial encounter Qualified Code(s): T81.31XA - Disruption of external operation (surgical) wound, not elsewhere classified, initial encounter PLAN: Plan Debridement done as documented above, procedure was well-tolerated. Some improvement noted. Slow but consistent improvement. Continue copper dressing to superior and inferior ulcers. Apply orange side down ensuring dressing covers the periwound area as well. Moisten lightly and cover with Adaptic and ABD. Leave dressing in place for 3 days. Again educated on moistening prior to changing, patient and spouse voiced understanding. May change more often if there is concern for drainage. Continue optimal diabetes control and dietary protein intake. Continue hydrocortisone as needed to surrounding area of dermatitis. Continue other chronic wound care management. His questions were answered and he was advised to let us know if he has any further questions or concerns. Follow-up in 2 weeks or sooner if needed. This note was generated with [employer] software. It may contain incorrect words, spelling, and punctuation that were not noted in checking the note before signing.
--- NOTE | 2024-03-02 11:58 | WC ---
PHOTO 02/27/24 ABNER SUP
--- NOTE | 2024-03-02 11:58 | WC ---
PHOTO 02/27/24 ABD INF
[2024-03-12 11:12] VITALS: BP 161/88; PULSE 86; RESP 18; TEMP 36.6; BMI 36.9
--- NOTE | 2024-03-12 12:11 | PN.PCM_ITS ---
History of Present Illness Date of Service: 03/12/24 Chief Complaint: Non healing surgical wound History of Wound: Mr. Duque is a 62 yo Last seen here over a month ago. He had been discharged due to plan for closure following colostomy reversal. Surgery was uneventful however, less than a week after surgery, he states that his wound breakdown/dehisced. Initially applied Dakin's dressing but subsequently, started a wound VAC. Since starting wound VAC, he states that there has been much better improvement. Currently set at 150 mmHg. History of diabetes mellitus which is well-controlled. He reports good protein intake. He feels well and denies any acute concerns at this time. Progress of Wound: No new concerns at this time. Improving abdominal ulcers/postsurgical wound. Objective Data Objective Data Vital Signs: Vital Signs Temp Pulse Resp BP O2 Del Method 97.8 F 86 18 161/88 H Room Air 03/12/24 11:12 03/12/24 11:12 03/12/24 11:12 03/12/24 11:12 02/27/24 08:43 Oxygen Delivery Method Room Air Weight: 250 lb Body Mass Index (BMI) 36.9 Charges/Coding Procedures Integumentary 111xxx-113xx: [id number] Hannah subq tissue 20 sq cm/< Physical Exam Const alert, oriented x3 and no apparent distress General Appearance: cooperative, comfortable and well kempt HEENT normocephalic, head/scalp atraumatic and hearing grossly normal bilaterally Eyes EOMs intact bilaterally General Eye: normal appearance of both eyes Neck full ROM and supple General: normal visual inspection Resp normal respiratory effort Effort and Inspection: able to speak in complete sentences GI non-tender and non-distended Skin Wounds: wounds noted size Size: See clinical note, bed granulating well, margins well approximated, no odor and open Neuro oriented x3, CN's II-XII intact bilaterally, moves all extremities and no focal motor deficits Psych mental status grossly normal, thought process normal and cooperative Debridement Note Debridement Note Wound debrided: Abdomen (superior) Type of Debridement: Excisional debridement Anesthesia Used: 5% Lidocaine Gel Depth: Down to and including healthy tissue and in the subcutaneous layer Percentage of wound debrided: 100 Instrument Used: 5mm curette Tissue Removed: Slough and devitalized tissue Severity: Fat Layer Exposed Amount of bleeding with debridement: Mild Bleeding Controlled with: Pressure Patient tolerated procedure: Patient tolerated procedure well Post-Debridement Measurements and Additional Note: Post-Debridement Measurements/Treatment WC - Nurse 1 - General Ulcer Assessment Start: 02/27/24 08:43 Freq: Status: Active Protocol: JUSTIN Activity Type Activity Date Activity User E-sign Co-sign Detail Recorded Client Recorded Date Recorded By Document 02/27/24 08:43 KW [id number] 02/27/24 08:54 KW Document 03/12/24 11:12 RB [id number] 03/12/24 11:15 RB 02/27/24 03/12/24 08:43 11:12 WC - Today's Visit Information Type of service Follow-up Visit Follow-up Visit (Physician/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 (Physician/ROLL 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 ) ) Arrival Mode Ambulatory Ambulatory Transfer Assistance None Patient Identification Verified (Name & Yes Yes ) Patient Requires Transmission-Based No Precautions Height and Weight Body Mass Index (BMI) 36.9 36.9 BMI Classification Obese Obese Vital Signs Temperature (97.8 F-99.1 F) 96.1 F L 97.8 F Temperature Source Temporal Temporal Pulse Rate (60-100) 84 86 Pulse Location Monitor Monitor Respiratory Rate (12-18) 18 18 Respiratory rate source Observation Observation Oxygen Delivery Method Room Air Blood Pressure (90/60-120/80) 159/89 H 161/88 H Blood Pressure Mean (mm Hg) 112 112 Source Monitor Monitor Position Semi-Fowlers Semi-Fowlers Blood Pressure Location Left Arm Left Arm History Since Last Visit- (Skip if this is Patient's initial visit) Have you changed medications since your No No last visit? Any new allergies or adverse reactions No No Had a fall/change in ADL's that may No No increase risk of falls Signs or symptoms of abuse and/or No No neglect since last visit Have you been in the hospital since your No No last visit? Has dressing in place as prescribed Yes Yes Has compression in place as prescribed N/A N/A Has offloadiing in place as prescribed N/A N/A Experienced any changes in pain level or No No management Left Footwear Regular Shoe Right Footwear Regular Shoe Pain Scale: 0-10 Numeric Is Patient Pain Free? Yes Yes [id number] - Nurse 1 - General Ulcer Measurement Start: 02/27/24 08:43 Freq: Status: Active Protocol: Activity Type Activity Date Activity User E-sign Co-sign Detail Recorded Client Recorded Date Recorded By Document 02/27/24 08:43 KW [id number] 02/27/24 08:54 KW Document 03/12/24 11:12 RB [id number] 03/12/24 11:15 RB 02/27/24 03/12/24 08:43 11:12 Wound Center Nurse 1 4-ABDOMEN INFERIOR -Combined with other wound No -Current Size (cm) - Length 3 1 -Current Size (cm) - Width 2.5 0.7 -Current Size (cm) - Depth 0.1 0.1 -Total Square Cm 7.5 0.7 -Date of Last Picture (Recall this 02/27/24 field) -Photo Taken Yes -Tunneling No -Undermining/Tunneling No -Circular Undermining No -Exudate Amt Small Medium -Exudate Type Serosanguineous Serosanguineous -Wound Margin Distinct, Distinct, Outline Outline Attached Attached -Granulation Amt Large (67-100%) Medium (34-66%) -Granulation Quality Bow[place]ells Bowbells -Slough/Fibrin Yes -Necrosis Amt Medium (34-66%) -Necrotic Tissue Type Adherent Slough -Structure Exposed N/A -Texture (Matilde-wound Skin Appearance) Assessed Assessed, Scarring -Moisture (Matilde-wound Skin Appearance) Assessed Assessed -Color (Matilde-wound Skin Appearance) Assessed Assessed -Temperature (Matilde-wound Skin No Abnormality No Abnormality Appearance) (Pt Warm) (Pt Warm) -Tenderness on Palpation (Matilde-wound No No Skin Appearance) -Ulcer Cleansing Rinsed/ Wound Cleanser Irrigated with Saline -Foul Odor after Cleansing No No -Anesthetic Used 5% Lidocaine 5% Lidocaine Gel Gel 3-ABDOMEN SUPERIOR -Combined with other wound No -Current Size (cm) - Length 2.2 2.5 -Current Size (cm) - Width 1.1 2.3 -Current Size (cm) - Depth 0.1 0.1 -Total Square Cm 2.42 5.75 -Date of Last Picture (Recall this 02/27/24 field) -Photo Taken Yes -Tunneling No -Undermining/Tunneling No -Circular Undermining No -Exudate Amt Small Medium -Exudate Type Serosanguineous Serosanguineous -Wound Margin Distinct, Distinct, Outline Outline Attached Attached -Granulation Amt Large (67-100%) Medium (34-66%) -Granulation Quality Bowbells Bowbells -Slough/Fibrin Yes -Necrosis Amt Small (1-33%) Medium (34-66%) -Necrotic Tissue Type Adherent Slough Adherent Slough -Structure Exposed N/A -Texture (Matilde-wound Skin Appearance) Assessed Assessed, Scarring -Moisture (Matilde-wound Skin Appearance) Assessed Assessed -Color (Matilde-wound Skin Appearance) Assessed Assessed -Temperature (Matilde-wound Skin No Abnormality No Abnormality Appearance) (Pt Warm) (Pt Warm) -Tenderness on Palpation (Matilde-wound No No Skin Appearance) -Ulcer Cleansing Rinsed/ Wound Cleanser Irrigated with Saline -Foul Odor after Cleansing No No -Anesthetic Used 5% Lidocaine 5% Lidocaine Gel Gel WC - Nurse 2 - General Ulcer CM Notes Start: 02/27/24 08:43 Freq: Status: Active Protocol: Activity Type Activity Date Activity User E-sign Co-sign Detail Recorded Client Recorded Date Recorded By Document 02/27/24 09:17 [id number] 02/27/24 09:27 Document 03/12/24 11:18 [id number] 03/12/24 11:24 02/27/24 03/12/24 09:17 11:18 Wound Center Nurse 2 4-ABDOMEN INFERIOR -Time 09:18 11:18 -Correct Patient Yes Yes -Correct Side, Site, Position Yes Yes -Correct Procedure Yes Yes -Procedure Performed Yes Yes -Type of Procedure Debridement Debridement -Clinical Debridement Subcutaneous Subcutaneous -Tissue Removed Subcutaneous Subcutaneous -Post Debridement (cm) - Length 1.7 1.3 -Post Debridement (cm) - Width 1.1 0.9 -Post Debridement (cm) - Depth 0.1 0.1 -Total Square (Post) (cm) 1.87 1.17 -Area of Debridement (cm) - Length 1.7 1.3 -Area of Debridement (cm) - Width 1.1 0.9 -Total Square (Area) (cm) 1.87 1.17 -Tunneling No No -Undermining/Tunneling No No -Circular Undermining No No -Wound/Ulcer Outcome Not Healed Not Healed -Ulcer Cleansing Rinsed/ Rinsed/ Irrigated with Irrigated with Saline Saline -Foul Odor after Cleansing No No -Bioengineered Tissue No No -Bleeding Controlled with Pressure Pressure -Treatment Response Procedure Procedure Tolerated Well Tolerated Well -Debridement - Subq, 1st 20sq cm No No 3-ABDOMEN SUPERIOR -Time 09:19 11:18 -Correct Patient Yes Yes -Correct Side, Site, Position Yes Yes -Correct Procedure Yes Yes -Procedure Performed Yes Yes -Type of Procedure Debridement Debridement -Clinical Debridement Subcutaneous Subcutaneous -Tissue Removed Subcutaneous Subcutaneous -Post Debridement (cm) - Length 3.2 2.3 -Post Debridement (cm) - Width 2.2 1.6 -Post Debridement (cm) - Depth 0.1 0.1 -Total Square (Post) (cm) 7.04 3.68 -Area of Debridement (cm) - Length 3.2 2.3 -Area of Debridement (cm) - Width 2.2 1.6 -Total Square (Area) (cm) 7.04 3.68 -Tunneling No No -Undermining/Tunneling No No -Circular Undermining No No -Wound/Ulcer Outcome Not Healed Not Healed -Ulcer Cleansing Rinsed/ Rinsed/ Irrigated with Irrigated with Saline Saline -Foul Odor after Cleansing No No -Bioengineered Tissue No No -Bleeding Controlled with Pressure Pressure -Treatment Response Procedure Procedure Tolerated Well Tolerated Well -Debridement - Subq, 1st 20sq cm Yes Yes Pain Scale: 0-10 Numeric Is Patient Pain Free? Yes Yes WC - Nurse 3 - General Ulcer D/C NN Start: 02/27/24 08:43 Freq: Status: Active Protocol: Activity Type Activity Date Activity User E-sign Co-sign Detail Recorded Client Recorded Date Recorded By Document 02/27/24 09:31 MT [id number] 02/27/24 09:40 MT Document 03/12/24 11:27 RB [id number] 03/12/24 11:28 RB 02/27/24 03/12/24 09:31 11:27 Wound Care Center Nurse 3 4-ABDOMEN INFERIOR -Ulcer Cleansing Rinsed/ Irrigated with Saline -Primary Dressing Applied NonAdherent Contact Layer -Other Dressing copper, abd, copper dressing adaptic -Primary Dressing Covered/Secured with Secured with Secured with Tape Tape -Other Covering ABD 3-ABDOMEN SUPERIOR -Ulcer Cleansing Rinsed/ Irrigated with Saline -Primary Dressing Applied NonAdherent Contact Layer -Other Dressing copper dressing -Primary Dressing Covered/Secured with Secured with Tape -Other Covering abd Treatment Response Procedure Tolerated Well Pain Scale: 0-10 Numeric Is Patient Pain Free? Yes Yes Teaching: Wound Center Dressing Your Wound -Person Taught Patient -Teaching Method Discussion, Demonstration -Response to teaching Verbalize Understanding WC - Visit Discharge Discharge Condition Stable Stable Ambulatory Status Ambulatory Ambulatory Transportation Private Auto Private Auto Medication Reconcilliation completed & No No provided to patient/care provider Clinical Summary of Care Provided Yes Yes Additional Wound Wound debrided: Abdomen (inferior) Type of Debridement: Excisional debridement Anesthesia Used: 5% Lidocaine Gel Depth: Down to and including healthy tissue and in the subcutaneous layer Percentage of wound debrided: 100 Instrument Used: 5mm curette Tissue Removed: Slough and devitalized tissue Severity: Fat Layer Exposed Amount of bleeding with debridement: Mild Bleeding Controlled with: Pressure Patient tolerated procedure: Patient tolerated procedure well Assessment/Plan Assessment/Plan (1) Non-healing surgical wound: CODE(S): T81.89XA - Other complications of procedures, not elsewhere classified, initial encounter QUALIFIERS: Encounter type: initial encounter Qualified Code(s): T81.89XA - Other complications of procedures, not elsewhere classified, initial encounter (2) Type 2 diabetes mellitus: CODE(S): E11.9 - Type 2 diabetes mellitus without complications QUALIFIERS: Diabetes mellitus an/syq 13 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 insulin use: without long-term use Diabetes mellitus complication status: with skin complications Diabetes mellitus complication detail: with other skin complication Qualified Code(s): E11.628 - Type 2 diabetes mellitus with other skin complications (3) History of colostomy reversal: CODE(S): Z98.890 - Other specified postprocedural states (4) Surgical wound breakdown: CODE(S): T81.31XA - Disruption of external operation (surgical) wound, not elsewhere classified, initial encounter QUALIFIERS: Encounter type: initial encounter Qualified Code(s): T81.31XA - Disruption of external operation (surgical) wound, not elsewhere classified, initial encounter PLAN: Plan Debridement done as documented above, procedure was well-tolerated. Continues to show good improvement. Continue copper dressing to superior and inferior ulcers. Apply orange side down ensuring dressing covers the periwound area as well. Moisten lightly and cover with Adaptic and ABD. Leave dressing in place for 3 days. May change more often if there is concern for drainage. Continue optimal diabetes control and dietary protein intake. Continue hydrocortisone as needed to surrounding area of dermatitis. They are advised to only use this as needed and moisturize adequately in between. Continue other chronic wound care management. His questions were answered and he was advised to let us know if he has any further questions or concerns. Follow-up in 1 week or sooner if needed. This note was generated with [employer] dictation software. It may contain incorrect words, spelling, and punctuation that were not noted in checking the note before signing.
--- NOTE | 2024-03-13 08:48 | WC ---
PHOTO 03/12/24 ABD
[2024-03-19 08:14] VITALS: BP 146/81; PULSE 80; RESP 18; TEMP 36; BMI 36.9
--- NOTE | 2024-03-19 09:17 | PCM.WC.PN ---
History of Present Illness Date of Service: 03/19/24 Chief Complaint: Non healing surgical wound History of Wound: Mr. Duque is a 62 yo Last seen here over a month ago. He had been discharged due to plan for closure following colostomy reversal. Surgery was uneventful however, less than a week after surgery, he states that his wound breakdown/dehisced. Initially applied Dakin's dressing but subsequently, started a wound VAC. Since starting wound VAC, he states that there has been much better improvement. Currently set at 150 mmHg. History of diabetes mellitus which is well-controlled. He reports good protein intake. He feels well and denies any acute concerns at this time. Progress of Wound: No new concerns reported by the patient. Inferior ulcer/wound seems a little deeper. He denies increased pain or drainage. Objective Data Objective Data Vital Signs: Vital Signs Temp Pulse Resp BP O2 Del Method 96.8 F L 80 18 146/81 H Room Air 03/19/24 08:14 03/19/24 08:14 03/19/24 08:14 03/19/24 08:14 02/27/24 08:43 Oxygen Delivery Method Room Air Weight: 250 lb Body Mass Index (BMI) 36.9 Charges/Coding Procedures Integumentary 111xxx-113xx: [id number] Hannah subq tissue 20 sq cm/< Physical Exam Const alert, oriented x3 and no apparent distress General Appearance: cooperative, comfortable and well kempt HEENT normocephalic, head/scalp atraumatic and hearing grossly normal bilaterally Eyes EOMs intact bilaterally General Eye: normal appearance of both eyes Neck full ROM and supple General: normal visual inspection Resp normal respiratory effort Effort and Inspection: able to speak in complete sentences GI non-tender and non-distended Skin Wounds: wounds noted size Size: See clinical note, bed granulating well, margins well approximated, no odor and open Neuro oriented x3, CN's II-XII intact bilaterally, moves all extremities and no focal motor deficits Psych mental status grossly normal, thought process normal and cooperative Debridement Note Debridement Note Wound debrided: Abdomen (superior) Anesthesia Used: 5% Lidocaine Gel Depth: Down to and including healthy tissue and in the subcutaneous layer Percentage of wound debrided: 100 Instrument Used: 5mm curette Tissue Removed: Slough and devitalized tissue Severity: Fat Layer Exposed Amount of bleeding with debridement: Mild Bleeding Controlled with: Compression and gauze Patient tolerated procedure: Patient tolerated procedure well Post-Debridement Measurements and Additional Note: Post-Debridement Measurements/Treatment WC - Nurse 1 - General Ulcer Assessment Start: 02/27/24 08:43 Freq: Status: Active Protocol: JUSTIN Activity Type Activity Date Activity User E-sign Co-sign Detail Recorded Client Recorded Date Recorded By Document 02/27/24 08:43 KW [id number] 02/27/24 08:54 KW Document 03/12/24 11:12 RB [id number] 03/12/24 11:15 RB Document 03/19/24 08:14 DL [id number] 03/19/24 08:21 DL 02/27/24 03/12/24 03/19/24 08:43 11:12 08:14 WC - Today's Visit Information Type of service Follow-up Visit Follow-up Visit Follow-up Visit (Physician/WEB ANALYTICS SPECIALIST (Physician/WEB ANALYTICS SPECIALIST (Physician/WEB ANALYTICS SPECIALIST ) ) ) Arrival Mode Ambulatory Ambulatory Ambulatory Transfer Assistance None Transfer Board Patient Identification Verified (Name & Yes Yes Yes ) Patient Requires Transmission-Based No No Precautions Height and Weight Body Mass Index (BMI) 36.9 36.9 36.9 BMI Classification Obese Obese Obese Vital Signs Temperature (97.8 F-99.1 F) 96.1 F L 97.8 F 96.8 F L Temperature Source Temporal Temporal Temporal Pulse Rate (60-100) 84 86 80 Pulse Location Monitor Monitor Monitor Respiratory Rate (12-18) 18 18 18 Respiratory rate source Observation Observation Observation Oxygen Delivery Method Room Air Blood Pressure (90/60-120/80) 159/89 H 161/88 H 146/81 H Blood Pressure Mean (mm Hg) 112 112 102 Source Monitor Monitor Monitor Position Semi-Fowlers Semi-Fowlers Blood Pressure Location Left Arm Left Arm History Since Last Visit- (Skip if this is Patient's initial visit) Have you changed medications since your No No No last visit? Any new allergies or adverse reactions No No No Had a fall/change in ADL's that may No No No increase risk of falls Signs or symptoms of abuse and/or No No No neglect since last visit Have you been in the hospital since your No No No last visit? Has dressing in place as prescribed Yes Yes Yes Has compression in place as prescribed N/A N/A N/A Has offloadiing in place as prescribed N/A N/A N/A Experienced any changes in pain level or No No No management Left Footwear Regular Shoe Right Footwear Regular Shoe Pain Scale: 0-10 Numeric Is Patient Pain Free? Yes Yes Yes WC - Nurse 1 - General Ulcer Measurement Start: 02/27/24 08:43 Freq: Status: Active Protocol: Activity Type Activity Date Activity User E-sign Co-sign Detail Recorded Client Recorded Date Recorded By Document 02/27/24 08:43 KW [id number] 02/27/24 08:54 KW Document 03/12/24 11:12 RB [id number] 03/12/24 11:15 RB Document 03/19/24 08:14 DL [id number] 03/19/24 08:21 DL 02/27/24 03/12/24 03/19/24 08:43 11:12 08:14 Wound Center Nurse 1 4-ABDOMEN INFERIOR -Combined with other wound No -Current Size (cm) - Length 3 1 1 -Current Size (cm) - Width 2.5 0.7 1.6 -Current Size (cm) - Depth 0.1 0.1 0.1 -Total Square Cm 7.5 0.7 1.6 -Date of Last Picture (Recall this 02/27/24 field) -Photo Taken Yes Yes -Tunneling No -Undermining/Tunneling No -Circular Undermining No -Exudate Amt Small Medium Medium -Exudate Type Serosanguineous Serosanguineous Serosanguineous -Wound Margin Distinct, Distinct, Distinct, Outline Outline Outline Attached Attached Attached -Granulation Amt Large (67-100%) Medium (34-66%) Large (67-100%) -Granulation Quality Sweet Home Sweet Home Sweet Home -Slough/Fibrin Yes -Necrosis Amt Medium (34-66%) Small (1-33%) -Necrotic Tissue Type Adherent Slough Adherent Slough -Structure Exposed N/A N/A -Texture (Matilde-wound Skin Appearance) Assessed Assessed, Scarring Scarring -Moisture (Matilde-wound Skin Appearance) Assessed Assessed Dry/Scaly -Color (Matilde-wound Skin Appearance) Assessed Assessed No Abnormality -Temperature (Matilde-wound Skin No Abnormality No Abnormality No Abnormality Appearance) (Pt Warm) (Pt Warm) (Pt Warm) -Tenderness on Palpation (Matilde-wound No No Skin Appearance) -Ulcer Cleansing Rinsed/ Wound Cleanser Soap and Water Irrigated with Saline -Foul Odor after Cleansing No No No -Anesthetic Used 5% Lidocaine 5% Lidocaine 5% Lidocaine Gel Gel Gel 3-ABDOMEN SUPERIOR -Combined with other wound No -Current Size (cm) - Length 2.2 2.5 2.8 -Current Size (cm) - Width 1.1 2.3 1.2 -Current Size (cm) - Depth 0.1 0.1 0.1 -Total Square Cm 2.42 5.75 3.36 -Date of Last Picture (Recall this 02/27/24 field) -Photo Taken Yes Yes -Tunneling No -Undermining/Tunneling No -Circular Undermining No -Exudate Amt Small Medium Medium -Exudate Type Serosanguineous Serosanguineous -Wound Margin Distinct, Distinct, Distinct, Outline Outline Outline Attached Attached Attached -Granulation Amt Large (67-100%) Medium (34-66%) Large (67-100%) -Granulation Quality Sweet Home Sweet Home Sweet Home -Slough/Fibrin Yes -Necrosis Amt Small (1-33%) Medium (34-66%) Small (1-33%) -Necrotic Tissue Type Adherent Slough Adherent Slough Adherent Slough -Structure Exposed N/A N/A -Texture (Matilde-wound Skin Appearance) Assessed Assessed, Scarring Scarring -Moisture (Matilde-wound Skin Appearance) Assessed Assessed No Abnormality -Color (Matilde-wound Skin Appearance) Assessed Assessed No Abnormality -Temperature (Matilde-wound Skin No Abnormality No Abnormality No Abnormality Appearance) (Pt Warm) (Pt Warm) (Pt Warm) -Tenderness on Palpation (Matilde-wound No No No Skin Appearance) -Ulcer Cleansing Rinsed/ Wound Cleanser Soap and Water Irrigated with Saline -Foul Odor after Cleansing No No Yes, Due to Product Use -Anesthetic Used 5% Lidocaine 5% Lidocaine 5% Lidocaine Gel Gel Gel WC - Nurse 2 - General Ulcer CM Notes Start: 02/27/24 08:43 Freq: Status: Active Protocol: Activity Type Activity Date Activity User E-sign Co-sign Detail Recorded Client Recorded Date Recorded By Document 02/27/24 09:17 [id number] 02/27/24 09:27 Document 03/12/24 11:18 [id number] 03/12/24 11:24 Document 03/19/24 08:43 [id number] 03/19/24 08:54 GM 02/27/24 03/12/24 03/19/24 09:17 11:18 08:43 Wound Center Nurse 2 4-ABDOMEN INFERIOR -Time 09:18 11:18 08:44 -Correct Patient Yes Yes Yes -Correct Side, Site, Position Yes Yes Yes -Correct Procedure Yes Yes Yes -Procedure Performed Yes Yes Yes -Type of Procedure Debridement Debridement Debridement -Clinical Debridement Subcutaneous Subcutaneous Subcutaneous -Tissue Removed Subcutaneous Subcutaneous Subcutaneous -Post Debridement (cm) - Length 1.7 1.3 1.5 -Post Debridement (cm) - Width 1.1 0.9 1.0 -Post Debridement (cm) - Depth 0.1 0.1 0.2 -Total Square (Post) (cm) 1.87 1.17 1.50 -Area of Debridement (cm) - Length 1.7 1.3 0.5 -Area of Debridement (cm) - Width 1.1 0.9 1.0 -Total Square (Area) (cm) 1.87 1.17 0.50 -Tunneling No No No -Undermining/Tunneling No No No -Circular Undermining No No No -Wound/Ulcer Outcome Not Healed Not Healed Not Healed -Ulcer Cleansing Rinsed/ Rinsed/ Rinsed/ Irrigated with Irrigated with Irrigated with Saline Saline Saline -Foul Odor after Cleansing No No No -Bioengineered Tissue No No No -Bleeding Controlled with Pressure Pressure Pressure -Treatment Response Procedure Procedure Tolerated Well Tolerated Well -Debridement - Subq, 1st 20sq cm No No No 3-ABDOMEN SUPERIOR -Time 09:19 11:18 08:45 -Correct Patient Yes Yes Yes -Correct Side, Site, Position Yes Yes Yes -Correct Procedure Yes Yes Yes -Procedure Performed Yes Yes Yes -Type of Procedure Debridement Debridement Debridement -Clinical Debridement Subcutaneous Subcutaneous Subcutaneous -Tissue Removed Subcutaneous Subcutaneous Subcutaneous -Post Debridement (cm) - Length 3.2 2.3 2.0 -Post Debridement (cm) - Width 2.2 1.6 1.8 -Post Debridement (cm) - Depth 0.1 0.1 0.1 -Total Square (Post) (cm) 7.04 3.68 3.60 -Area of Debridement (cm) - Length 3.2 2.3 2.0 -Area of Debridement (cm) - Width 2.2 1.6 1.8 -Total Square (Area) (cm) 7.04 3.68 3.60 -Tunneling No No No -Undermining/Tunneling No No No -Circular Undermining No No No -Wound/Ulcer Outcome Not Healed Not Healed Not Healed -Ulcer Cleansing Rinsed/ Rinsed/ Rinsed/ Irrigated with Irrigated with Irrigated with Saline Saline Saline -Foul Odor after Cleansing No No No -Bioengineered Tissue No No No -Bleeding Controlled with Pressure Pressure Pressure -Treatment Response Procedure Procedure Procedure Tolerated Well Tolerated Well Tolerated Well -Debridement - Subq, 1st 20sq cm Yes Yes Yes Pain Scale: 0-10 Numeric Is Patient Pain Free? Yes Yes Yes - Nurse 3 - General Ulcer D/C NN Start: 02/27/24 08:43 Freq: Status: Active Protocol: Activity Type Activity Date Activity User E-sign Co-sign Detail Recorded Client Recorded Date Recorded By Document 02/27/24 09:31 MT [id number] 02/27/24 09:40 MT Document 03/12/24 11:27 RB [id number] 03/12/24 11:28 RB Document 03/19/24 09:08 KW [id number] 03/19/24 09:08 KW 02/27/24 03/12/24 03/19/24 09:31 11:27 09:08 Wound Care Center Nurse 3 4-ABDOMEN INFERIOR -Ulcer Cleansing Rinsed/ Irrigated with Saline -Primary Dressing Applied NonAdherent NonAdherent Contact Layer Contact Layer, Promogran -Other Dressing copper, abd, copper dressing adaptic -Primary Dressing Covered/Secured with Secured with Secured with Dry Gauze, Tape Tape Secured with Tape -Other Covering ABD -Promogran 1 3-ABDOMEN SUPERIOR -Ulcer Cleansing Rinsed/ Irrigated with Saline -Primary Dressing Applied NonAdherent Contact Layer -Other Dressing copper dressing promogran and adaptic -Primary Dressing Covered/Secured with Secured with Tape -Other Covering abd Treatment Response Procedure Tolerated Well Pain Scale: 0-10 Numeric Is Patient Pain Free? Yes Yes Yes Teaching: Wound Center Dressing Your Wound -Person Taught Patient -Teaching Method Discussion, Demonstration -Response to teaching Verbalize Understanding WC - Visit Discharge Discharge Condition Stable Stable Stable Ambulatory Status Ambulatory Ambulatory Ambulatory Transportation Private Auto Private Auto Private Auto Medication Reconcilliation completed & No No No provided to patient/care provider Clinical Summary of Care Provided Yes Yes Yes Additional Wound Wound debrided: Abdomen (inferior) Type of Debridement: Excisional debridement Anesthesia Used: 5% Lidocaine Gel Depth: Down to and including healthy tissue and in the subcutaneous layer Percentage of wound debrided: 100 Instrument Used: 5mm curette Tissue Removed: Slough and devitalized tissue Severity: Fat Layer Exposed Bleeding Controlled with: Pressure Patient tolerated procedure: Patient tolerated procedure well Assessment/Plan Assessment/Plan (1) Non-healing surgical wound: CODE(S): T81.89XA - Other complications of procedures, not elsewhere classified, initial encounter QUALIFIERS: Encounter type: subsequent encounter Qualified Code(s): T81.89XD - Other complications of procedures, not elsewhere classified, subsequent encounter (2) Type 2 diabetes mellitus: CODE(S): E11.9 - Type 2 diabetes mellitus without complications QUALIFIERS: Diabetes mellitus mold cleaner insulin use: without nursing home use Diabetes mellitus complication status: with skin complications Diabetes mellitus complication detail: with other skin complication Qualified Code(s): E11.628 - Type 2 diabetes mellitus with other skin complications (3) History of colostomy reversal: CODE(S): Z98.890 - Other specified postprocedural states (4) Surgical wound breakdown: CODE(S): T81.31XA - Disruption of external operation (surgical) wound, not elsewhere classified, initial encounter QUALIFIERS: Encounter type: initial encounter Qualified Code(s): T81.31XA - Disruption of external operation (surgical) wound, not elsewhere classified, initial encounter PLAN: Plan Debridement done as documented above, procedure was well-tolerated. Increase in depth to inferior wound/ulcer. Cultures taken. For now, switch to Promogran daily to both areas. Moistened lightly and cover with Adaptic and gauze. Continue optimal diabetes control and dietary protein intake. Continue hydrocortisone as needed to surrounding area of dermatitis. They are advised to only use this as needed and moisturize adequately in between. Continue other chronic wound care management. His questions were answered and he was advised to let us know if he has any further questions or concerns. Follow-up in 1 week or sooner if needed. This note was generated with [employer] software. It may contain incorrect words, spelling, and punctuation that were not noted in checking the note before signing.
--- NOTE | 2024-03-20 13:52 | WC ---
PHOTO 03/19/24 [facility] [place]
--- NOTE | 2024-03-20 13:55 | WC ---
PHOTO 03/19/24 [facility]
[2024-03-26 08:56] VITALS: BP 169/94; PULSE 80; RESP 16; TEMP 36.6; BMI 36.9
--- NOTE | 2024-03-26 09:58 | PCM.WC.PN ---
History of Present Illness Date of Service: 03/26/24 Chief Complaint: Non healing surgical wound History of Wound: Mr. Duque is a 62 yo Last seen here over a month ago. He had been discharged due to plan for closure following colostomy reversal. Surgery was uneventful however, less than a week after surgery, he states that his wound breakdown/dehisced. Initially applied Dakin's dressing but subsequently, started a wound VAC. Since starting wound VAC, he states that there has been much better improvement. Currently set at 150 mmHg. History of diabetes mellitus which is well-controlled. He reports good protein intake. He feels well and denies any acute concerns at this time. Progress of Wound: No new concerns reported by the patient. Cultures done last week with no significant growth. Inferior ulcer with some improvement. Objective Data Objective Data Vital Signs: Vital Signs Temp Pulse Resp BP O2 Del Method 97.9 F 80 16 169/94 H Room Air 03/26/24 08:56 03/26/24 08:56 03/26/24 08:56 03/26/24 08:56 03/26/24 08:56 Oxygen Delivery Method Room Air Weight: 250 lb Body Mass Index (BMI) 36.9 Charges/Coding Procedures Integumentary 111xxx-113xx: [id number] Hannah subq tissue 20 sq cm/< Physical Exam Const alert, oriented x3 and no apparent distress General Appearance: cooperative, comfortable and well kempt HEENT normocephalic, head/scalp atraumatic and hearing grossly normal bilaterally Eyes EOMs intact bilaterally General Eye: normal appearance of both eyes Neck full ROM and supple General: normal visual inspection Resp normal respiratory effort Effort and Inspection: able to speak in complete sentences GI non-tender and non-distended Skin Wounds: wounds noted size Size: See clinical note, bed granulating well, margins well approximated, no odor and open Neuro oriented x3, CN's II-XII intact bilaterally, moves all extremities and no focal motor deficits Psych mental status grossly normal, thought process normal and cooperative Debridement Note Debridement Note Wound debrided: Abdomen (superior) Type of Debridement: Excisional debridement Anesthesia Used: 5% Lidocaine Gel Depth: Down to and including healthy tissue and in the subcutaneous layer Percentage of wound debrided: 100 Instrument Used: 5mm curette Tissue Removed: Slough and devitalized tissue Severity: Fat Layer Exposed Amount of bleeding with debridement: Mild Bleeding Controlled with: Pressure Patient tolerated procedure: Patient tolerated procedure well Post-Debridement Measurements and Additional Note: Post-Debridement Measurements/Treatment WC - Nurse 1 - General Ulcer Assessment Start: 02/27/24 08:43 Freq: Status: Active Protocol: JUSTIN Activity Type Activity Date Activity User E-sign Co-sign Detail Recorded Client Recorded Date Recorded By Document 02/27/24 08:43 KW [id number] 02/27/24 08:54 KW Document 03/12/24 11:12 RB [id number] 03/12/24 11:15 RB Document 03/19/24 08:14 DL [id number] 03/19/24 08:21 DL Document 03/26/24 08:56 KW [id number] 03/26/24 09:03 KW 02/27/24 03/12/24 03/19/24 08:43 11:12 08:14 WC - Today's Visit Information Type of service Follow-up Visit Follow-up Visit Follow-up Visit (Physician/PATIENT SERVICES CLERK (Physician/PATIENT SERVICES CLERK (Physician/PATIENT SERVICES CLERK ) ) ) Arrival Mode Ambulatory Ambulatory Ambulatory Transfer Assistance None Transfer Board Patient Identification Verified (Name & Yes Yes Yes ) Patient Requires Transmission-Based No No Precautions Height and Weight Body Mass Index (BMI) 36.9 36.9 36.9 BMI Classification Obese Obese Obese Vital Signs Temperature (97.8 F-99.1 F) 96.1 F L 97.8 F 96.8 F L Temperature Source Temporal Temporal Temporal Pulse Rate (60-100) 84 86 80 Pulse Location Monitor Monitor Monitor Respiratory Rate (12-18) 18 18 18 Respiratory rate source Observation Observation Observation Oxygen Delivery Method Room Air Blood Pressure (90/60-120/80) 159/89 H 161/88 H 146/81 H Blood Pressure Mean (mm Hg) 112 112 102 Source Monitor Monitor Monitor Position Semi-Fowlers Semi-Fowlers Blood Pressure Location Left Arm Left Arm History Since Last Visit- (Skip if this is Patient's initial visit) Have you changed medications since your No No No last visit? Any new allergies or adverse reactions No No No Had a fall/change in ADL's that may No No No increase risk of falls Signs or symptoms of abuse and/or No No No neglect since last visit Have you been in the hospital since your No No No last visit? Has dressing in place as prescribed Yes Yes Yes Has compression in place as prescribed N/A N/A N/A Has offloadiing in place as prescribed N/A N/A N/A Experienced any changes in pain level or No No No management Left Footwear Regular Shoe Right Footwear Regular Shoe Pain Scale: 0-10 Numeric Is Patient Pain Free? Yes Yes Yes 03/26/24 08:56 - Today's Visit Information Type of service Follow-up Visit (Physician/PATIENT SERVICES CLERK ) Arrival Mode Ambulatory Transfer Assistance Patient Identification Verified (Name & Yes ) Patient Requires Transmission-Based Precautions Height and Weight Body Mass Index (BMI) 36.9 BMI Classification Obese Vital Signs Temperature (97.8 F-99.1 F) 97.9 F Temperature Source Temporal Pulse Rate (60-100) 80 Pulse Location Monitor Respiratory Rate (12-18) 16 Respiratory rate source Observation Oxygen Delivery Method Room Air Blood Pressure (90/60-120/80) 169/94 H Blood Pressure Mean (mm Hg) 119 Source Monitor Position Semi-Fowlers Blood Pressure Location Left Arm History Since Last Visit- (Skip if this is Patient's initial visit) Have you changed medications since your No last visit? Any new allergies or adverse reactions No Had a fall/change in ADL's that may No increase risk of falls Signs or symptoms of abuse and/or No neglect since last visit Have you been in the hospital since your No last visit? Has dressing in place as prescribed Yes Has compression in place as prescribed N/A Has offloadiing in place as prescribed N/A Experienced any changes in pain level or No management Left Footwear Regular Shoe Right Footwear Regular Shoe Pain Scale: 0-10 Numeric Is Patient Pain Free? Yes - Nurse 1 - General Ulcer Measurement Start: 02/27/24 08:43 Freq: Status: Active Protocol: Activity Type Activity Date Activity User E-sign Co-sign Detail Recorded Client Recorded Date Recorded By Document 02/27/24 08:43 KW [id number] 02/27/24 08:54 KW Document 03/12/24 11:12 RB [id number] 03/12/24 11:15 RB Document 03/19/24 08:14 DL [id number] 03/19/24 08:21 DL Document 03/26/24 08:56 KW [id number] 03/26/24 09:03 KW 02/27/24 03/12/24 03/19/24 08:43 11:12 08:14 Wound Center Nurse 1 4-ABDOMEN INFERIOR -Combined with other wound No -Current Size (cm) - Length 3 1 1 -Current Size (cm) - Width 2.5 0.7 1.6 -Current Size (cm) - Depth 0.1 0.1 0.1 -Total Square Cm 7.5 0.7 1.6 -Date of Last Picture (Recall this 02/27/24 field) -Photo Taken Yes Yes -Tunneling No -Undermining/Tunneling No -Circular Undermining No -Exudate Amt Small Medium Medium -Exudate Type Serosanguineous Serosanguineous Serosanguineous -Wound Margin Distinct, Distinct, Distinct, Outline Outline Outline Attached Attached Attached -Granulation Amt Large (67-100%) Medium (34-66%) Large (67-100%) -Granulation Quality Gramling Gramling Gramling -Slough/Fibrin Yes -Necrosis Amt Medium (34-66%) Small (1-33%) -Necrotic Tissue Type Adherent Slough Adherent Slough -Structure Exposed N/A N/A -Texture (Matilde-wound Skin Appearance) Assessed Assessed, Scarring Scarring -Moisture (Matilde-wound Skin Appearance) Assessed Assessed Dry/Scaly -Color (Matilde-wound Skin Appearance) Assessed Assessed No Abnormality -Temperature (Matilde-wound Skin No Abnormality No Abnormality No Abnormality Appearance) (Pt Warm) (Pt Warm) (Pt Warm) -Tenderness on Palpation (Matilde-wound No No Skin Appearance) -Ulcer Cleansing Rinsed/ Wound Cleanser Soap and Water Irrigated with Saline -Foul Odor after Cleansing No No No -Anesthetic Used 5% Lidocaine 5% Lidocaine 5% Lidocaine Gel Gel Gel 3-ABDOMEN SUPERIOR -Combined with other wound No -Current Size (cm) - Length 2.2 2.5 2.8 -Current Size (cm) - Width 1.1 2.3 1.2 -Current Size (cm) - Depth 0.1 0.1 0.1 -Total Square Cm 2.42 5.75 3.36 -Date of Last Picture (Recall this 02/27/24 field) -Photo Taken Yes Yes -Tunneling No -Undermining/Tunneling No -Circular Undermining No -Exudate Amt Small Medium Medium -Exudate Type Serosanguineous Serosanguineous -Wound Margin Distinct, Distinct, Distinct, Outline Outline Outline Attached Attached Attached -Granulation Amt Large (67-100%) Medium (34-66%) Large (67-100%) -Granulation Quality Gramling Gramling Gramling -Slough/Fibrin Yes -Necrosis Amt Small (1-33%) Medium (34-66%) Small (1-33%) -Necrotic Tissue Type Adherent Slough Adherent Slough Adherent Slough -Structure Exposed N/A N/A -Texture (Matilde-wound Skin Appearance) Assessed Assessed, Scarring Scarring -Moisture (Matilde-wound Skin Appearance) Assessed Assessed No Abnormality -Color (Matilde-wound Skin Appearance) Assessed Assessed No Abnormality -Temperature (Matilde-wound Skin No Abnormality No Abnormality No Abnormality Appearance) (Pt Warm) (Pt Warm) (Pt Warm) -Tenderness on Palpation (Matilde-wound No No No Skin Appearance) -Ulcer Cleansing Rinsed/ Wound Cleanser Soap and Water Irrigated with Saline -Foul Odor after Cleansing No No Yes, Due to Product Use -Anesthetic Used 5% Lidocaine 5% Lidocaine 5% Lidocaine Gel Gel Gel 03/26/24 08:56 Wound Center Nurse 1 4-ABDOMEN INFERIOR -Combined with other wound -Current Size (cm) - Length 1 -Current Size (cm) - Width 1.4 -Current Size (cm) - Depth 0.1 -Total Square Cm 1.4 -Date of Last Picture (Recall this field) -Photo Taken -Tunneling -Undermining/Tunneling -Circular Undermining -Exudate Amt None Present -Exudate Type -Wound Margin Distinct, Outline Attached -Granulation Amt Large (67-100%) -Granulation Quality Gramling -Slough/Fibrin -Necrosis Amt Small (1-33%) -Necrotic Tissue Type Adherent Slough -Structure Exposed -Texture (Matilde-wound Skin Appearance) Assessed -Moisture (Matilde-wound Skin Appearance) Assessed -Color (Matilde-wound Skin Appearance) Assessed -Temperature (Matilde-wound Skin No Abnormality Appearance) (Pt Warm) -Tenderness on Palpation (Matilde-wound No Skin Appearance) -Ulcer Cleansing Soap and Water -Foul Odor after Cleansing No -Anesthetic Used 5% Lidocaine Gel 3-ABDOMEN SUPERIOR -Combined with other wound -Current Size (cm) - Length 3 -Current Size (cm) - Width 2.1 -Current Size (cm) - Depth 0.1 -Total Square Cm 6.3 -Date of Last Picture (Recall this field) -Photo Taken -Tunneling -Undermining/Tunneling -Circular Undermining -Exudate Amt None Present -Exudate Type -Wound Margin -Granulation Amt Large (67-100%) -Granulation Quality Gramling -Slough/Fibrin -Necrosis Amt -Necrotic Tissue Type -Structure Exposed -Texture (Matilde-wound Skin Appearance) Assessed, Scarring -Moisture (Matilde-wound Skin Appearance) Assessed -Color (Matilde-wound Skin Appearance) Assessed -Temperature (Matilde-wound Skin No Abnormality Appearance) (Pt Warm) -Tenderness on Palpation (Matilde-wound No Skin Appearance) -Ulcer Cleansing Soap and Water -Foul Odor after Cleansing No -Anesthetic Used 5% Lidocaine Gel WC - Nurse 2 - General Ulcer CM Notes Start: 02/27/24 08:43 Freq: Status: Active Protocol: Activity Type Activity Date Activity User E-sign Co-sign Detail Recorded Client Recorded Date Recorded By Document 02/27/24 09:17 [id number] 02/27/24 09:27 Document 03/12/24 11:18 [id number] 03/12/24 11:24 GM Document 03/19/24 08:43 [id number] 03/19/24 08:54 Document 03/26/24 09:28 [id number] 03/26/24 09:33 02/27/24 03/12/24 03/19/24 09:17 11:18 08:43 Wound Center Nurse 2 4-ABDOMEN INFERIOR -Time 09:18 11:18 08:44 -Correct Patient Yes Yes Yes -Correct Side, Site, Position Yes Yes Yes -Correct Procedure Yes Yes Yes -Procedure Performed Yes Yes Yes -Type of Procedure Debridement Debridement Debridement -Clinical Debridement Subcutaneous Subcutaneous Subcutaneous -Tissue Removed Subcutaneous Subcutaneous Subcutaneous -Post Debridement (cm) - Length 1.7 1.3 1.5 -Post Debridement (cm) - Width 1.1 0.9 1.0 -Post Debridement (cm) - Depth 0.1 0.1 0.2 -Total Square (Post) (cm) 1.87 1.17 1.50 -Area of Debridement (cm) - Length 1.7 1.3 0.5 -Area of Debridement (cm) - Width 1.1 0.9 1.0 -Total Square (Area) (cm) 1.87 1.17 0.50 -Tunneling No No No -Undermining/Tunneling No No No -Circular Undermining No No No -Wound/Ulcer Outcome Not Healed Not Healed Not Healed -Ulcer Cleansing Rinsed/ Rinsed/ Rinsed/ Irrigated with Irrigated with Irrigated with Saline Saline Saline -Foul Odor after Cleansing No No No -Bioengineered Tissue No No No -Bleeding Controlled with Pressure Pressure Pressure -Treatment Response Procedure Procedure Tolerated Well Tolerated Well -Debridement - Subq, 1st 20sq cm No No No 3-ABDOMEN SUPERIOR -Time 09:19 11:18 08:45 -Correct Patient Yes Yes Yes -Correct Side, Site, Position Yes Yes Yes -Correct Procedure Yes Yes Yes -Procedure Performed Yes Yes Yes -Type of Procedure Debridement Debridement Debridement -Clinical Debridement Subcutaneous Subcutaneous Subcutaneous -Tissue Removed Subcutaneous Subcutaneous Subcutaneous -Post Debridement (cm) - Length 3.2 2.3 2.0 -Post Debridement (cm) - Width 2.2 1.6 1.8 -Post Debridement (cm) - Depth 0.1 0.1 0.1 -Total Square (Post) (cm) 7.04 3.68 3.60 -Area of Debridement (cm) - Length 3.2 2.3 2.0 -Area of Debridement (cm) - Width 2.2 1.6 1.8 -Total Square (Area) (cm) 7.04 3.68 3.60 -Tunneling No No No -Undermining/Tunneling No No No -Circular Undermining No No No -Wound/Ulcer Outcome Not Healed Not Healed Not Healed -Ulcer Cleansing Rinsed/ Rinsed/ Rinsed/ Irrigated with Irrigated with Irrigated with Saline Saline Saline -Foul Odor after Cleansing No No No -Bioengineered Tissue No No No -Bleeding Controlled with Pressure Pressure Pressure -Treatment Response Procedure Procedure Procedure Tolerated Well Tolerated Well Tolerated Well -Debridement - Subq, 1st 20sq cm Yes Yes Yes Pain Scale: 0-10 Numeric Is Patient Pain Free? Yes Yes Yes 03/26/24 09:28 Wound Center Nurse 2 4-ABDOMEN INFERIOR -Time 09:29 -Correct Patient Yes -Correct Side, Site, Position Yes -Correct Procedure Yes -Procedure Performed Yes -Type of Procedure Debridement -Clinical Debridement Subcutaneous -Tissue Removed Subcutaneous -Post Debridement (cm) - Length 0.9 -Post Debridement (cm) - Width 1.0 -Post Debridement (cm) - Depth 0.1 -Total Square (Post) (cm) 0.90 -Area of Debridement (cm) - Length 0.9 -Area of Debridement (cm) - Width 1.0 -Total Square (Area) (cm) 0.90 -Tunneling No -Undermining/Tunneling No -Circular Undermining No -Wound/Ulcer Outcome Not Healed -Ulcer Cleansing Rinsed/ Irrigated with Saline -Foul Odor after Cleansing No -Bioengineered Tissue No -Bleeding Controlled with Pressure -Treatment Response Procedure Tolerated Well -Debridement - Subq, 1st 20sq cm No 3-ABDOMEN SUPERIOR -Time 09:29 -Correct Patient Yes -Correct Side, Site, Position Yes -Correct Procedure Yes -Procedure Performed Yes -Type of Procedure Debridement -Clinical Debridement Subcutaneous -Tissue Removed Subcutaneous -Post Debridement (cm) - Length 2.5 -Post Debridement (cm) - Width 2.0 -Post Debridement (cm) - Depth 0.1 -Total Square (Post) (cm) 5.00 -Area of Debridement (cm) - Length 2.5 -Area of Debridement (cm) - Width 2.0 -Total Square (Area) (cm) 5.00 -Tunneling No -Undermining/Tunneling No -Circular Undermining No -Wound/Ulcer Outcome Not Healed -Ulcer Cleansing Rinsed/ Irrigated with Saline -Foul Odor after Cleansing No -Bioengineered Tissue No -Bleeding Controlled with Pressure -Treatment Response Procedure Tolerated Well -Debridement - Subq, 1st 20sq cm Yes Pain Scale: 0-10 Numeric Is Patient Pain Free? Yes WC - Nurse 3 - General Ulcer D/C NN Start: 02/27/24 08:43 Freq: Status: Active Protocol: Activity Type Activity Date Activity User E-sign Co-sign Detail Recorded Client Recorded Date Recorded By Document 02/27/24 09:31 MT [id number] 02/27/24 09:40 MT Document 03/12/24 11:27 RB [id number] 03/12/24 11:28 RB Document 03/19/24 09:08 KW [id number] 03/19/24 09:08 KW Document 03/26/24 09:54 KW [id number] 03/26/24 09:54 KW 02/27/24 03/12/24 03/19/24 09:31 11:27 09:08 Wound Care Center Nurse 3 4-ABDOMEN INFERIOR -Ulcer Cleansing Rinsed/ Irrigated with Saline -Primary Dressing Applied NonAdherent NonAdherent Contact Layer Contact Layer, Promogran -Other Dressing copper, abd, copper dressing adaptic -Primary Dressing Covered/Secured with Secured with Secured with Dry Gauze, Tape Tape Secured with Tape -Other Covering ABD -Promogran 1 3-ABDOMEN SUPERIOR -Ulcer Cleansing Rinsed/ Irrigated with Saline -Primary Dressing Applied NonAdherent Contact Layer -Other Dressing copper dressing promogran and adaptic -Primary Dressing Covered/Secured with Secured with Tape -Other Covering abd Treatment Response Procedure Tolerated Well Pain Scale: 0-10 Numeric Is Patient Pain Free? Yes Yes Yes Teaching: Wound Center Dressing Your Wound -Person Taught Patient -Teaching Method Discussion, Demonstration -Response to teaching Verbalize Understanding WC - Visit Discharge Discharge Condition Stable Stable Stable Ambulatory Status Ambulatory Ambulatory Ambulatory Transportation Private Auto Private Auto Private Auto Medication Reconcilliation completed & No No No provided to patient/care provider Clinical Summary of Care Provided Yes Yes Yes 03/26/24 09:54 Wound Care Center Nurse 3 4-ABDOMEN INFERIOR -Ulcer Cleansing -Primary Dressing Applied NonAdherent Contact Layer, Promogran -Other Dressing -Primary Dressing Covered/Secured with -Other Covering -Promogran 1 3-ABDOMEN SUPERIOR -Ulcer Cleansing -Primary Dressing Applied -Other Dressing PROMOGRAN WITH ADAPTIC -Primary Dressing Covered/Secured with Dry Gauze, Secured with Tape -Other Covering Treatment Response Pain Scale: 0-10 Numeric Is Patient Pain Free? Yes Teaching: Wound Center Dressing Your Wound -Person Taught -Teaching Method -Response to teaching WC - Visit Discharge Discharge Condition Stable Ambulatory Status Ambulatory Transportation Private Auto Medication Reconcilliation completed & No provided to patient/care provider Clinical Summary of Care Provided Yes Additional Wound Wound debrided: Abdomen (inferior) Type of Debridement: Excisional debridement Anesthesia Used: 5% Lidocaine Gel Depth: Down to and including healthy tissue and in the subcutaneous layer Percentage of wound debrided: 100 Instrument Used: 5mm curette Tissue Removed: Slough and devitalized tissue Severity: Fat Layer Exposed Amount of bleeding with debridement: Mild Bleeding Controlled with: Pressure Patient tolerated procedure: Patient tolerated procedure well Assessment/Plan Assessment/Plan (1) Non-healing surgical wound: CODE(S): T81.89XA - Other complications of procedures, not elsewhere classified, initial encounter QUALIFIERS: Encounter type: subsequent encounter Qualified Code(s): T81.89XD - Other complications of procedures, not elsewhere classified, subsequent encounter (2) Type 2 diabetes mellitus: CODE(S): E11.9 - Type 2 diabetes mellitus without complications QUALIFIERS: 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: without 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 supervisor use Diabetes mellitus complication status: with skin complications Diabetes mellitus complication detail: with other skin complication Qualified Code(s): E11.628 - Type 2 diabetes mellitus with other skin complications (3) History of colostomy reversal: CODE(S): Z98.890 - Other specified postprocedural states (4) Surgical wound breakdown: CODE(S): T81.31XA - Disruption of external operation (surgical) wound, not elsewhere classified, initial encounter QUALIFIERS: Encounter type: initial encounter Qualified Code(s): T81.31XA - Disruption of external operation (surgical) wound, not elsewhere classified, initial encounter PLAN: Plan Debridement done as documented above, procedure was well-tolerated. Superior with mild worsening in circumference however, inferior did show some improvement. Good granulation tissue noted to both. Cultures with no growth. Continue Promogran daily to both areas. Moisten lightly and cover with Adaptic and gauze. Continue optimal diabetes control and dietary protein intake. Continue hydrocortisone as needed to surrounding area of dermatitis. Continue other chronic wound care management. His questions were answered and he was advised to let us know if he has any further questions or concerns. Follow-up in 1 week or sooner if needed. This note was generated with [employer] software. It may contain incorrect words, spelling, and punctuation that were not noted in checking the note before signing.
== END 2024-03-27 23:59 | disposition home or self-care (01) ==
LOC: WC 08:45
PROVIDERS: PCP Internal Medicine; Referring Provider Internal Medicine; Visit Provider Internal Medicine
DX: T81.89XA Other complications of procedures, not elsewhere classified, initial encounter (principal); E11.628 Type 2 diabetes mellitus with other skin complications; T81.31XA Disruption of external operation (surgical) wound, not elsewhere classified, initial encounter; Z98.890 Other specified postprocedural states; E66.9 Obesity, unspecified; Z68.36 Body mass index [BMI] 36.0-36.9, adult
CPT/HCPCS: 11042

== ENCOUNTER 2024-04-23 09:00 | Outpatient (RCR) | payer OTHER, SELFPAY ==
[2024-03-28 00:38] VITALS: BP 169/94; PULSE 80; RESP 16; TEMP 36.6; BMI 36.9
[2024-04-02 08:22] VITALS: BP 163/85; PULSE 91; RESP 18; TEMP 36.7; BMI 36.9
--- NOTE | 2024-04-02 09:13 | PN.PCM_ITS ---
History of Present Illness Date of Service: 04/02/24 Chief Complaint: Non healing surgical wound History of Wound: Mr. Duque is a 62 yo Last seen here over a month ago. He had been discharged due to plan for closure following colostomy reversal. Surgery was uneventful however, less than a week after surgery, he states that his wound breakdown/dehisced. Initially applied Dakin's dressing but subsequently, started a wound VAC. Since starting wound VAC, he states that there has been much better improvement. Currently set at 150 mmHg. History of diabetes mellitus which is well-controlled. He reports good protein intake. He feels well and denies any acute concerns at this time. Progress of Wound: No new concerns at this time. He denies increased pain or drainage. There has been some improvement since his last visit. Objective Data Objective Data Vital Signs: Vital Signs Temp Pulse Resp BP O2 Del Method 98.0 F 91 18 163/85 H Room Air 04/02/24 08:22 04/02/24 08:22 04/02/24 08:22 04/02/24 08:22 04/02/24 08:22 Oxygen Delivery Method Room Air Weight: 250 lb Body Mass Index (BMI) 36.9 Charges/Coding Procedures Integumentary 111xxx-113xx: 11634 Hannah subq tissue 20 sq cm/< Physical Exam Const alert, oriented x3 and no apparent distress General Appearance: cooperative, comfortable and well kempt HEENT normocephalic, head/scalp atraumatic and hearing grossly normal bilaterally Eyes EOMs intact bilaterally General Eye: normal appearance of both eyes Neck full ROM and supple General: normal visual inspection Resp normal respiratory effort Effort and Inspection: able to speak in complete sentences GI non-tender and non-distended Skin Wounds: wounds noted size Size: See clinical note, bed granulating well, margins well approximated, no odor and open Neuro oriented x3, CN's II-XII intact bilaterally, moves all extremities and no focal motor deficits Psych mental status grossly normal, thought process normal and cooperative Debridement Note Debridement Note Wound debrided: Abdomen (superior) Type of Debridement: Excisional debridement Anesthesia Used: 5% Lidocaine Gel Depth: Down to and including healthy tissue and in the subcutaneous layer Percentage of wound debrided: 100 Instrument Used: 5mm curette Tissue Removed: Slough and devitalized tissue Severity: Fat Layer Exposed Amount of bleeding with debridement: Mild Bleeding Controlled with: Compression and gauze Patient tolerated procedure: Patient tolerated procedure well Post-Debridement Measurements and Additional Note: Post-Debridement Measurements/Treatment - Nurse 1 - General Ulcer Assessment Start: 04/02/24 08:22 Freq: Status: Active Protocol: JUSTIN Activity Type Activity Date Activity User E-sign Co-sign Detail Recorded Client Recorded Date Recorded By Document 04/02/24 08:22 SOPHIE [id number] 04/02/24 08:26 04/02/24 08:22 WC - Today's Visit Information Type of service Follow-up Visit (Physician/SERVICE CAPTAIN ) Arrival Mode Ambulatory Patient Identification Verified (Name & Yes ) Height and Weight Body Mass Index (BMI) 36.9 BMI Classification Obese Vital Signs Temperature (97.8 F-99.1 F) 98.0 F Temperature Source Temporal Pulse Rate (60-100) 91 Pulse Location Monitor Respiratory Rate (12-18) 18 Respiratory rate source Observation Oxygen Delivery Method Room Air Blood Pressure (90/60-120/80) 163/85 H Blood Pressure Mean (mm Hg) 111 Source Monitor Position Semi-Fowlers Blood Pressure Location Left Arm History Since Last Visit- (Skip if this is Patient's initial visit) Have you changed medications since your No last visit? Any new allergies or adverse reactions No Had a fall/change in ADL's that may No increase risk of falls Signs or symptoms of abuse and/or No neglect since last visit Have you been in the hospital since your No last visit? Has dressing in place as prescribed Yes Has compression in place as prescribed N/A Has offloadiing in place as prescribed N/A Experienced any changes in pain level or No management Left Footwear Regular Shoe Right Footwear Regular Shoe Pain Scale: 0-10 Numeric Is Patient Pain Free? Yes - Nurse 1 - General Ulcer Measurement Start: 04/02/24 08:22 Freq: Status: Active Protocol: Activity Type Activity Date Activity User E-sign Co-sign Detail Recorded Client Recorded Date Recorded By Document 04/02/24 08:22 KW [id number] 04/02/24 08:26 04/02/24 08:22 Wound Center Nurse 1 4-ABDOMEN INFERIOR -Current Size (cm) - Length 2.4 -Current Size (cm) - Width 1.6 -Current Size (cm) - Depth 0.1 -Total Square Cm 3.84 -Exudate Amt Small -Exudate Type Serosanguineous -Wound Margin Distinct, Outline Attached -Granulation Amt Large (67-100%) -Granulation Quality [place],Red -Texture (Matilde-wound Skin Appearance) Assessed -Moisture (Matilde-wound Skin Appearance) Assessed -Color (Matilde-wound Skin Appearance) Assessed -Temperature (Matilde-wound Skin No Abnormality Appearance) (Pt Warm) -Tenderness on Palpation (Matilde-wound No Skin Appearance) -Ulcer Cleansing Rinsed/ Irrigated with Saline -Foul Odor after Cleansing No -Anesthetic Used 5% Lidocaine Gel 3-ABDOMEN SUPERIOR -Current Size (cm) - Length 3.5 -Current Size (cm) - Width 2.4 -Current Size (cm) - Depth 0.1 -Total Square Cm 8.40 -Date of Last Picture (Recall this 04/02/24 field) -Exudate Amt Small -Exudate Type Serosanguineous -Wound Margin Distinct, Outline Attached -Granulation Amt Large (67-100%) -Granulation Quality [place],Red -Texture (Matilde-wound Skin Appearance) Assessed -Moisture (Matilde-wound Skin Appearance) Assessed -Color (Matilde-wound Skin Appearance) Assessed -Temperature (Matilde-wound Skin No Abnormality Appearance) (Pt Warm) -Tenderness on Palpation (Matilde-wound No Skin Appearance) -Ulcer Cleansing Rinsed/ Irrigated with Saline -Anesthetic Used 5% Lidocaine Gel WC - Nurse 2 - General Ulcer CM Notes Start: 04/02/24 08:22 Freq: Status: Active Protocol: Activity Type Activity Date Activity User E-sign Co-sign Detail Recorded Client Recorded Date Recorded By Document 04/02/24 08:34 [id number] 04/02/24 08:41 04/02/24 08:34 Wound Center Nurse 2 4-ABDOMEN INFERIOR -Time 08:34 -Correct Patient Yes -Correct Side, Site, Position Yes -Correct Procedure Yes -Procedure Performed Yes -Type of Procedure Debridement -Clinical Debridement Subcutaneous -Tissue Removed Subcutaneous -Post Debridement (cm) - Length 1.0 -Post Debridement (cm) - Width 0.8 -Post Debridement (cm) - Depth 0.1 -Total Square (Post) (cm) 0.80 -Area of Debridement (cm) - Length 1.0 -Area of Debridement (cm) - Width 0.8 -Total Square (Area) (cm) 0.80 -Tunneling No -Undermining/Tunneling No -Circular Undermining No -Wound/Ulcer Outcome Not Healed -Ulcer Cleansing Rinsed/ Irrigated with Saline -Foul Odor after Cleansing No -Bioengineered Tissue No -Bleeding Controlled with Pressure -Treatment Response Procedure Tolerated Well -Debridement - Subq, 1st 20sq cm No 3-ABDOMEN SUPERIOR -Time 08:35 -Correct Patient Yes -Correct Side, Site, Position Yes -Correct Procedure Yes -Procedure Performed Yes -Type of Procedure Debridement -Clinical Debridement Subcutaneous -Tissue Removed Subcutaneous -Post Debridement (cm) - Length 2.5 -Post Debridement (cm) - Width 1.5 -Post Debridement (cm) - Depth 0.1 -Total Square (Post) (cm) 3.75 -Area of Debridement (cm) - Length 2.5 -Area of Debridement (cm) - Width 1.5 -Total Square (Area) (cm) 3.75 -Tunneling No -Undermining/Tunneling No -Circular Undermining No -Wound/Ulcer Outcome Not Healed -Ulcer Cleansing Rinsed/ Irrigated with Saline -Foul Odor after Cleansing No -Bioengineered Tissue No -Bleeding Controlled with Pressure -Treatment Response Procedure Tolerated Well -Debridement - Subq, 1st 20sq cm Yes Pain Scale: 0-10 Numeric Is Patient Pain Free? Yes - Nurse 3 - General Ulcer D/C NN Start: 04/02/24 08:22 Freq: Status: Active Protocol: Activity Type Activity Date Activity User E-sign Co-sign Detail Recorded Client Recorded Date Recorded By Document 04/02/24 08:54 [id number] 04/02/24 08:54 KW 04/02/24 08:54 Wound Care Center Nurse 3 4-ABDOMEN INFERIOR -Primary Dressing Applied NonAdherent Contact Layer, Promogran -Primary Dressing Covered/Secured with Dry Gauze, Secured with Tape -Promogran 1 3-ABDOMEN SUPERIOR -Other Dressing adaptic and promogran Pain Scale: 0-10 Numeric Is Patient Pain Free? Yes - Visit Discharge Discharge Condition Stable Ambulatory Status Ambulatory Transportation Private Auto Medication Reconcilliation completed & No provided to patient/care provider Clinical Summary of Care Provided Yes Additional Wound Wound debrided: Abdomen (inferior) Type of Debridement: Excisional debridement Anesthesia Used: 5% Lidocaine Gel Depth: Down to and including healthy tissue and in the subcutaneous layer Percentage of wound debrided: 100 Instrument Used: 5mm curette Tissue Removed: Slough and devitalized tissue Severity: Fat Layer Exposed Amount of bleeding with debridement: Mild Bleeding Controlled with: Pressure Patient tolerated procedure: Patient tolerated procedure well Assessment/Plan Assessment/Plan (1) Non-healing surgical wound: CODE(S): T81.89XA - Other complications of procedures, not elsewhere classified, initial encounter QUALIFIERS: Encounter type: subsequent encounter Qualified Code(s): T81.89XD - Other complications of procedures, not elsewhere classified, subsequent encounter (2) Type 2 diabetes mellitus: CODE(S): E11.9 - Type 2 diabetes mellitus without complications QUALIFIERS: 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 use: without petroleum terminal plant operator use Diabetes mellitus complication status: with skin complications Diabetes mellitus complication detail: with other skin complication Qualified Code(s): E11.628 - Type 2 diabetes mellitus with other skin complications (3) History of colostomy reversal: CODE(S): Z98.890 - Other specified postprocedural states (4) Surgical wound breakdown: CODE(S): T81.31XA - Disruption of external operation (surgical) wound, not elsewhere classified, initial encounter QUALIFIERS: Encounter type: initial encounter Qualified Code(s): T81.31XA - Disruption of external operation (surgical) wound, not elsewhere classified, initial encounter PLAN: Plan Debridement done as documented above, procedure was well-tolerated. Improvement noted, no concerns reported. Good granulation tissue noted to both. Continue Promogran daily to both areas. Moisten lightly and cover with Adaptic and gauze. Continue optimal diabetes control and dietary protein intake. Continue other chronic wound care management. His questions were answered and he was advised to let us know if he has any further questions or concerns. Follow-up in 1 week or sooner if needed. This note was generated with [employer] software. It may contain incorrect words, spelling, and punctuation that were not noted in checking the note before signing.
[2024-04-09 09:08] VITALS: BP 159/76; PULSE 78; RESP 18; TEMP 36.3; BMI 36.9
--- NOTE | 2024-04-09 11:04 | PCM.WC.PN ---
History of Present Illness Date of Service: 04/09/24 Chief Complaint: Non healing surgical wound History of Wound: Mr. Duque is a 62 yo Last seen here over a month ago. He had been discharged due to plan for closure following colostomy reversal. Surgery was uneventful however, less than a week after surgery, he states that his wound breakdown/dehisced. Initially applied Dakin's dressing but subsequently, started a wound VAC. Since starting wound VAC, he states that there has been much better improvement. Currently set at 150 mmHg. History of diabetes mellitus which is well-controlled. He reports good protein intake. He feels well and denies any acute concerns at this time. Progress of Wound: Overall, stable. He states that he pulled an area of skin while cleaning out the lower abdominal area this morning. No increased drainage or pain. Doing dressing changes as recommended. Objective Data Objective Data Vital Signs: Vital Signs Temp Pulse Resp BP O2 Del Method 97.4 F L 78 18 159/76 H Room Air 04/09/24 09:08 04/09/24 09:08 04/09/24 09:08 04/09/24 09:08 04/09/24 09:08 Oxygen Delivery Method Room Air Weight: 250 lb Body Mass Index (BMI) 36.9 Charges/Coding Procedures Integumentary 111xxx-113xx: 18718 Hannah subq tissue 20 sq cm/< Physical Exam Const alert, oriented x3 and no apparent distress General Appearance: cooperative, comfortable and well kempt HEENT normocephalic, head/scalp atraumatic and hearing grossly normal bilaterally Eyes EOMs intact bilaterally General Eye: normal appearance of both eyes Neck full ROM and supple General: normal visual inspection Resp normal respiratory effort Effort and Inspection: able to speak in complete sentences GI non-tender and non-distended Skin Wounds: wounds noted size Size: See clinical note, bed granulating well, margins well approximated, no odor and open Neuro oriented x3, CN's II-XII intact bilaterally, moves all extremities and no focal motor deficits Psych mental status grossly normal, thought process normal and cooperative Debridement Note Debridement Note Wound debrided: Abdomen (superior) Type of Debridement: Excisional debridement Anesthesia Used: 5% Lidocaine Gel Depth: Down to and including healthy tissue and in the subcutaneous layer Percentage of wound debrided: 100 Instrument Used: 5mm curette Tissue Removed: Slough and devitalized tissue Severity: Fat Layer Exposed Amount of bleeding with debridement: Mild Bleeding Controlled with: Pressure Patient tolerated procedure: Patient tolerated procedure well Post-Debridement Measurements and Additional Note: Post-Debridement Measurements/Treatment - Nurse 1 - General Ulcer Assessment Start: 04/02/24 08:22 Freq: Status: Active Protocol: JUSTIN Activity Type Activity Date Activity User E-sign Co-sign Detail Recorded Client Recorded Date Recorded By Document 04/02/24 08:22 KW [id number] 04/02/24 08:26 KW Document 04/09/24 09:08 KW [id number] 04/09/24 09:13 KW 04/02/24 04/09/24 08:22 09:08 WC - Today's Visit Information Type of service Follow-up Visit Follow-up Visit (Physician/JEWELRY CASTING MODEL MAKER (Physician/JEWELRY CASTING MODEL MAKER ) ) Arrival Mode Ambulatory Ambulatory Accompanied by Patient Identification Verified (Name & Yes Yes ) Height and Weight Body Mass Index (BMI) 36.9 36.9 BMI Classification Obese Obese Vital Signs Temperature (97.8 F-99.1 F) 98.0 F 97.4 F L Temperature Source Temporal Temporal Pulse Rate (60-100) 91 78 Pulse Location Monitor Monitor Respiratory Rate (12-18) 18 18 Respiratory rate source Observation Observation Oxygen Delivery Method Room Air Room Air Blood Pressure (90/60-120/80) 163/85 H 159/76 H Blood Pressure Mean (mm Hg) 111 103 Source Monitor Monitor Position Semi-Fowlers Sitting Blood Pressure Location Left Arm Left Arm History Since Last Visit- (Skip if this is Patient's initial visit) Have you changed medications since your No No last visit? Any new allergies or adverse reactions No No Had a fall/change in ADL's that may No No increase risk of falls Signs or symptoms of abuse and/or No No neglect since last visit Have you been in the hospital since your No No last visit? Has dressing in place as prescribed Yes Yes Has compression in place as prescribed N/A N/A Has offloadiing in place as prescribed N/A N/A Experienced any changes in pain level or No No management Left Footwear Regular Shoe Regular Shoe Right Footwear Regular Shoe Regular Shoe Pain Scale: 0-10 Numeric Is Patient Pain Free? Yes Yes - Nurse 1 - General Ulcer Measurement Start: 04/02/24 08:22 Freq: Status: Active Protocol: Activity Type Activity Date Activity User E-sign Co-sign Detail Recorded Client Recorded Date Recorded By Document 04/02/24 08:22 KW [id number] 04/02/24 08:26 KW Document 04/09/24 09:08 KW [id number] 04/09/24 09:13 KW 04/02/24 04/09/24 08:22 09:08 Wound Center Nurse 1 4-ABDOMEN INFERIOR -Current Size (cm) - Length 2.4 2.2 -Current Size (cm) - Width 1.6 1 -Current Size (cm) - Depth 0.1 0.1 -Total Square Cm 3.84 2.2 -Exudate Amt Small None Present -Exudate Type Serosanguineous -Wound Margin Distinct, Distinct, Outline Outline Attached Attached -Granulation Amt Large (67-100%) Large (67-100%) -Granulation Quality [place],Red [place] -Texture (Matilde-wound Skin Appearance) Assessed Assessed, Scarring -Moisture (Matilde-wound Skin Appearance) Assessed Assessed -Color (Matilde-wound Skin Appearance) Assessed Assessed, Erythema -Temperature (Matilde-wound Skin No Abnormality Appearance) (Pt Warm) -Tenderness on Palpation (Matilde-wound No Skin Appearance) -Ulcer Cleansing Rinsed/ Irrigated with Saline -Foul Odor after Cleansing No -Anesthetic Used 5% Lidocaine Gel 3-ABDOMEN SUPERIOR -Current Size (cm) - Length 3.5 2.2 -Current Size (cm) - Width 2.4 1.5 -Current Size (cm) - Depth 0.1 0.1 -Total Square Cm 8.40 3.30 -Date of Last Picture (Recall this 04/02/24 field) -Exudate Amt Small None Present -Exudate Type Serosanguineous -Wound Margin Distinct, Distinct, Outline Outline Attached Attached -Granulation Amt Large (67-100%) Large (67-100%) -Granulation Quality [place],Red [place] -Texture (Matilde-wound Skin Appearance) Assessed Assessed, Scarring -Moisture (Matilde-wound Skin Appearance) Assessed Assessed -Color (Matilde-wound Skin Appearance) Assessed Assessed, Erythema -Temperature (Matilde-wound Skin No Abnormality No Abnormality Appearance) (Pt Warm) (Pt Warm) -Tenderness on Palpation (Matilde-wound No No Skin Appearance) -Ulcer Cleansing Rinsed/ Rinsed/ Irrigated with Irrigated with Saline Saline -Foul Odor after Cleansing No -Anesthetic Used 5% Lidocaine 5% Lidocaine Gel Gel WC - Nurse 2 - General Ulcer CM Notes Start: 04/02/24 08:22 Freq: Status: Active Protocol: Activity Type Activity Date Activity User E-sign Co-sign Detail Recorded Client Recorded Date Recorded By Document 04/02/24 08:34 [id number] 04/02/24 08:41 Document 04/09/24 09:35 [id number] 04/09/24 09:41 04/02/24 04/09/24 08:34 09:35 Wound Center Nurse 2 4-ABDOMEN INFERIOR -Time 08:34 09:35 -Correct Patient Yes Yes -Correct Side, Site, Position Yes Yes -Correct Procedure Yes Yes -Procedure Performed Yes Yes -Type of Procedure Debridement Debridement -Clinical Debridement Subcutaneous Subcutaneous -Tissue Removed Subcutaneous Subcutaneous -Post Debridement (cm) - Length 1.0 2.4 -Post Debridement (cm) - Width 0.8 0.9 -Post Debridement (cm) - Depth 0.1 0.1 -Total Square (Post) (cm) 0.80 2.16 -Area of Debridement (cm) - Length 1.0 2.4 -Area of Debridement (cm) - Width 0.8 0.9 -Total Square (Area) (cm) 0.80 2.16 -Tunneling No No -Undermining/Tunneling No No -Circular Undermining No No -Wound/Ulcer Outcome Not Healed Not Healed -Ulcer Cleansing Rinsed/ Rinsed/ Irrigated with Irrigated with Saline Saline -Foul Odor after Cleansing No No -Bioengineered Tissue No No -Bleeding Controlled with Pressure Pressure -Treatment Response Procedure Procedure Tolerated Well Tolerated Well -Debridement - Subq, 1st 20sq cm No No 3-ABDOMEN SUPERIOR -Time 08:35 09:36 -Correct Patient Yes Yes -Correct Side, Site, Position Yes Yes -Correct Procedure Yes Yes -Procedure Performed Yes Yes -Type of Procedure Debridement Debridement -Clinical Debridement Subcutaneous Subcutaneous -Tissue Removed Subcutaneous Subcutaneous -Post Debridement (cm) - Length 2.5 2.2 -Post Debridement (cm) - Width 1.5 1.2 -Post Debridement (cm) - Depth 0.1 0.1 -Total Square (Post) (cm) 3.75 2.64 -Area of Debridement (cm) - Length 2.5 2.2 -Area of Debridement (cm) - Width 1.5 1.2 -Total Square (Area) (cm) 3.75 2.64 -Tunneling No No -Undermining/Tunneling No No -Circular Undermining No No -Wound/Ulcer Outcome Not Healed Not Healed -Ulcer Cleansing Rinsed/ Rinsed/ Irrigated with Irrigated with Saline Saline -Foul Odor after Cleansing No No -Bioengineered Tissue No No -Bleeding Controlled with Pressure Pressure -Treatment Response Procedure Procedure Tolerated Well Tolerated Well -Debridement - Subq, 1st 20sq cm Yes Yes Pain Scale: 0-10 Numeric Is Patient Pain Free? Yes Yes - Nurse 3 - General Ulcer D/C NN Start: 04/02/24 08:22 Freq: Status: Active Protocol: Activity Type Activity Date Activity User E-sign Co-sign Detail Recorded Client Recorded Date Recorded By Document 04/02/24 08:54 [id number] 04/02/24 08:54 KW Document 04/09/24 09:42 [id number] 04/09/24 09:43 KW 04/02/24 04/09/24 08:54 09:42 Wound Care Center Nurse 3 4-ABDOMEN INFERIOR -Primary Dressing Applied NonAdherent NonAdherent Contact Layer, Contact Layer, Promogran Promogran -Primary Dressing Covered/Secured with Dry Gauze, Secured with Tape -Promogran 1 1 3-ABDOMEN SUPERIOR -Other Dressing adaptic and promogran with promogran adaptic -Primary Dressing Covered/Secured with Dry Gauze, Secured with Tape Pain Scale: 0-10 Numeric Is Patient Pain Free? Yes Yes - Visit Discharge Discharge Condition Stable Stable Ambulatory Status Ambulatory Ambulatory Transportation Private Auto Private Auto Accompanied by Medication Reconcilliation completed & No No provided to patient/care provider Clinical Summary of Care Provided Yes Yes Additional Wound Wound debrided: Abdomen (inferior) Type of Debridement: Excisional debridement Anesthesia Used: 5% Lidocaine Gel Depth: Down to and including healthy tissue and in the subcutaneous layer Percentage of wound debrided: 100 Instrument Used: 5mm curette Tissue Removed: Slough and devitalized tissue Severity: Fat Layer Exposed Amount of bleeding with debridement: Mild Bleeding Controlled with: Pressure Patient tolerated procedure: Patient tolerated procedure well Assessment/Plan Assessment/Plan (1) Non-healing surgical wound: CODE(S): T81.89XA - Other complications of procedures, not elsewhere classified, initial encounter QUALIFIERS: Encounter type: subsequent encounter Qualified Code(s): T81.89XD - Other complications of procedures, not elsewhere classified, subsequent encounter (2) Type 2 diabetes mellitus: CODE(S): E11.9 - Type 2 diabetes mellitus without complications QUALIFIERS: Diabetes mellitus custodial insulin use: without terminal computer operator use Diabetes mellitus complication status: with skin complications Diabetes mellitus complication detail: with other skin complication Qualified Code(s): E11.628 - Type 2 diabetes mellitus with other skin complications (3) History of colostomy reversal: CODE(S): Z98.890 - Other specified postprocedural states (4) Surgical wound breakdown: CODE(S): T81.31XA - Disruption of external operation (surgical) wound, not elsewhere classified, initial encounter QUALIFIERS: Encounter type: initial encounter Qualified Code(s): T81.31XA - Disruption of external operation (surgical) wound, not elsewhere classified, initial encounter PLAN: Plan Debridement done as documented above, procedure was well-tolerated. Overall, improving. Lower abdominal wound circumference increased due to trauma earlier today but otherwise, good granulation tissue noted to both. Continue Promogran daily to both areas. Moisten lightly and cover with Adaptic and gauze. Continue optimal diabetes control and dietary protein intake. Continue other chronic wound care management. His questions were answered and he was advised to let us know if he has any further questions or concerns. Follow-up in 2 weeks or sooner if needed. This note was generated with [employer] dictation software. It may contain incorrect words, spelling, and punctuation that were not noted in checking the note before signing.
[2024-04-23 09:00] VITALS: BP 160/84; PULSE 80; RESP 18; TEMP 36.6; BMI 36.9
--- NOTE | 2024-04-23 09:42 | PN.PCM_ITS ---
History of Present Illness Date of Service: 04/23/24 Chief Complaint: Non healing surgical wound History of Wound: Mr. Duque is a 62 yo Last seen here over a month ago. He had been discharged due to plan for closure following colostomy reversal. Surgery was uneventful however, less than a week after surgery, he states that his wound breakdown/dehisced. Initially applied Dakin's dressing but subsequently, started a wound VAC. Since starting wound VAC, he states that there has been much better improvement. Currently set at 150 mmHg. History of diabetes mellitus which is well-controlled. He reports good protein intake. He feels well and denies any acute concerns at this time. Progress of Wound: No new concerns reported at this time. No significant change. Denies increased pain or drainage. Objective Data Objective Data Vital Signs: Vital Signs Temp Pulse Resp BP O2 Del Method 97.9 F 80 18 160/84 H Room Air 04/23/24 09:00 04/23/24 09:00 04/23/24 09:00 04/23/24 09:00 04/23/24 09:00 Oxygen Delivery Method Room Air Weight: 250 lb Body Mass Index (BMI) 36.9 Charges/Coding Procedures Integumentary 111xxx-113xx: 00437 Hannah subq tissue 20 sq cm/< Physical Exam Const alert, oriented x3 and no apparent distress General Appearance: cooperative, comfortable and well kempt HEENT normocephalic, head/scalp atraumatic and hearing grossly normal bilaterally Eyes EOMs intact bilaterally General Eye: normal appearance of both eyes Neck full ROM and supple General: normal visual inspection Resp normal respiratory effort Effort and Inspection: able to speak in complete sentences GI non-tender and non-distended Skin Wounds: wounds noted size Size: See clinical note, bed granulating well, margins well approximated, no odor and open Neuro oriented x3, CN's II-XII intact bilaterally, moves all extremities and no focal motor deficits Psych mental status grossly normal, thought process normal and cooperative Debridement Note Debridement Note Wound debrided: Abdomen (superior) Type of Debridement: Excisional debridement Anesthesia Used: 5% Lidocaine Gel Depth: Down to and including healthy tissue and in the subcutaneous layer Percentage of wound debrided: 100 Instrument Used: 5mm curette Tissue Removed: Slough and devitalized tissue Severity: Fat Layer Exposed Amount of bleeding with debridement: Mild Bleeding Controlled with: Pressure Patient tolerated procedure: Patient tolerated procedure well Post-Debridement Measurements and Additional Note: Post-Debridement Measurements/Treatment - Nurse 1 - General Ulcer Assessment Start: 04/02/24 08:22 Freq: Status: Active Protocol: JUSTIN Activity Type Activity Date Activity User E-sign Co-sign Detail Recorded Client Recorded Date Recorded By Document 04/02/24 08:22 KW [id number] 04/02/24 08:26 KW Document 04/09/24 09:08 KW [id number] 04/09/24 09:13 KW Document 04/23/24 09:00 KW [id number] 04/23/24 09:04 KW 04/02/24 04/09/24 04/23/24 08:22 09:08 09:00 WC - Today's Visit Information Type of service Follow-up Visit Follow-up Visit Follow-up Visit (Physician/DRAFTING TECHNICIAN (Physician/DRAFTING TECHNICIAN (Physician/DRAFTING TECHNICIAN ) ) ) Arrival Mode Ambulatory Ambulatory Ambulatory Accompanied by Patient Identification Verified (Name & Yes Yes Yes ) Height and Weight Body Mass Index (BMI) 36.9 36.9 36.9 BMI Classification Obese Obese Obese Vital Signs Temperature (97.8 F-99.1 F) 98.0 F 97.4 F L 97.9 F Temperature Source Temporal Temporal Temporal Pulse Rate (60-100) 91 78 80 Pulse Location Monitor Monitor Monitor Respiratory Rate (12-18) 18 18 18 Respiratory rate source Observation Observation Observation Oxygen Delivery Method Room Air Room Air Room Air Blood Pressure (90/60-120/80) 163/85 H 159/76 H 160/84 H Blood Pressure Mean (mm Hg) 111 103 109 Source Monitor Monitor Monitor Position Semi-Fowlers Sitting Semi-Fowlers Blood Pressure Location Left Arm Left Arm Left Arm History Since Last Visit- (Skip if this is Patient's initial visit) Have you changed medications since your No No No last visit? Any new allergies or adverse reactions No No No Had a fall/change in ADL's that may No No No increase risk of falls Signs or symptoms of abuse and/or No No No neglect since last visit Have you been in the hospital since your No No No last visit? Has dressing in place as prescribed Yes Yes Yes Has compression in place as prescribed N/A N/A N/A Has offloadiing in place as prescribed N/A N/A N/A Experienced any changes in pain level or No No No management Left Footwear Regular Shoe Regular Shoe Regular Shoe Right Footwear Regular Shoe Regular Shoe Regular Shoe Pain Scale: 0-10 Numeric Is Patient Pain Free? Yes Yes Yes WC - Nurse 1 - General Ulcer Measurement Start: 04/02/24 08:22 Freq: Status: Active Protocol: Activity Type Activity Date Activity User E-sign Co-sign Detail Recorded Client Recorded Date Recorded By Document 04/02/24 08:22 KW [id number] 04/02/24 08:26 KW Document 04/09/24 09:08 KW [id number] 04/09/24 09:13 KW Document 04/23/24 09:00 KW [id number] 04/23/24 09:04 KW 04/02/24 04/09/24 04/23/24 08:22 09:08 09:00 Wound Center Nurse 1 4-ABDOMEN INFERIOR -Current Size (cm) - Length 2.4 2.2 1.4 -Current Size (cm) - Width 1.6 1 1.2 -Current Size (cm) - Depth 0.1 0.1 0.1 -Total Square Cm 3.84 2.2 1.68 -Date of Last Picture (Recall this 04/23/24 field) -Exudate Amt Small None Present Small -Exudate Type Serosanguineous Serosanguineous -Wound Margin Distinct, Distinct, Distinct, Outline Outline Outline Attached Attached Attached -Granulation Amt Large (67-100%) Large (67-100%) Small (1-33%) -Granulation Quality [place],Red [place] -Necrosis Amt Large (67-100%) -Necrotic Tissue Type Adherent Slough -Texture (Bruna-wound Skin Appearance) Assessed Assessed, Assessed Scarring -Moisture (Bruna-wound Skin Appearance) Assessed Assessed Assessed -Color (Bruna-wound Skin Appearance) Assessed Assessed, Assessed Erythema -Temperature (Bruna-wound Skin No Abnormality No Abnormality Appearance) (Pt Warm) (Pt Warm) -Tenderness on Palpation (Bruna-wound No No Skin Appearance) -Ulcer Cleansing Rinsed/ Rinsed/ Irrigated with Irrigated with Saline Saline -Foul Odor after Cleansing No No -Anesthetic Used 5% Lidocaine 5% Lidocaine Gel Gel 3-ABDOMEN SUPERIOR -Current Size (cm) - Length 3.5 2.2 2.4 -Current Size (cm) - Width 2.4 1.5 1.9 -Current Size (cm) - Depth 0.1 0.1 0.1 -Total Square Cm 8.40 3.30 4.56 -Date of Last Picture (Recall this 04/02/24 04/23/24 field) -Exudate Amt Small None Present Small -Exudate Type Serosanguineous Serosanguineous -Wound Margin Distinct, Distinct, Distinct, Outline Outline Outline Attached Attached Attached -Granulation Amt Large (67-100%) Large (67-100%) Small (1-33%) -Granulation Quality [place],Red [place] -Necrosis Amt Large (67-100%) -Necrotic Tissue Type Adherent Slough -Texture (Bruna-wound Skin Appearance) Assessed Assessed, Assessed Scarring -Moisture (Bruna-wound Skin Appearance) Assessed Assessed Assessed -Color (Bruna-wound Skin Appearance) Assessed Assessed, Assessed Erythema -Temperature (Bruna-wound Skin No Abnormality No Abnormality No Abnormality Appearance) (Pt Warm) (Pt Warm) (Pt Warm) -Tenderness on Palpation (Bruna-wound No No No Skin Appearance) -Ulcer Cleansing Rinsed/ Rinsed/ Rinsed/ Irrigated with Irrigated with Irrigated with Saline Saline Saline -Foul Odor after Cleansing No -Anesthetic Used 5% Lidocaine 5% Lidocaine 5% Lidocaine Gel Gel Gel WC - Nurse 2 - General Ulcer CM Notes Start: 04/02/24 08:22 Freq: Status: Active Protocol: Activity Type Activity Date Activity User E-sign Co-sign Detail Recorded Client Recorded Date Recorded By Document 04/02/24 08:34 [id number] 04/02/24 08:41 Document 04/09/24 09:35 [id number] 04/09/24 09:41 Document 04/23/24 09:18 [id number] 04/23/24 09:28 04/02/24 04/09/24 04/23/24 08:34 09:35 09:18 Wound Center Nurse 2 4-ABDOMEN INFERIOR -Time 08:34 09:35 09:18 -Correct Patient Yes Yes Yes -Correct Side, Site, Position Yes Yes Yes -Correct Procedure Yes Yes Yes -Procedure Performed Yes Yes Yes -Type of Procedure Debridement Debridement Debridement -Clinical Debridement Subcutaneous Subcutaneous Subcutaneous -Tissue Removed Subcutaneous Subcutaneous Subcutaneous -Post Debridement (cm) - Length 1.0 2.4 1.6 -Post Debridement (cm) - Width 0.8 0.9 1.1 -Post Debridement (cm) - Depth 0.1 0.1 0.1 -Total Square (Post) (cm) 0.80 2.16 1.76 -Area of Debridement (cm) - Length 1.0 2.4 1.6 -Area of Debridement (cm) - Width 0.8 0.9 1.1 -Total Square (Area) (cm) 0.80 2.16 1.76 -Tunneling No No No -Undermining/Tunneling No No No -Circular Undermining No No No -Wound/Ulcer Outcome Not Healed Not Healed Not Healed -Ulcer Cleansing Rinsed/ Rinsed/ Rinsed/ Irrigated with Irrigated with Irrigated with Saline Saline Saline -Foul Odor after Cleansing No No No -Bioengineered Tissue No No No -Bleeding Controlled with Pressure Pressure Pressure -Treatment Response Procedure Procedure Procedure Tolerated Well Tolerated Well Tolerated Well -Debridement - Subq, 1st 20sq cm No No No 3-ABDOMEN SUPERIOR -Time 08:35 09:36 09:18 -Correct Patient Yes Yes Yes -Correct Side, Site, Position Yes Yes Yes -Correct Procedure Yes Yes Yes -Procedure Performed Yes Yes Yes -Type of Procedure Debridement Debridement Debridement -Clinical Debridement Subcutaneous Subcutaneous Subcutaneous -Tissue Removed Subcutaneous Subcutaneous Subcutaneous -Post Debridement (cm) - Length 2.5 2.2 1.1 -Post Debridement (cm) - Width 1.5 1.2 2.4 -Post Debridement (cm) - Depth 0.1 0.1 0.1 -Total Square (Post) (cm) 3.75 2.64 2.64 -Area of Debridement (cm) - Length 2.5 2.2 2.4 -Area of Debridement (cm) - Width 1.5 1.2 1.1 -Total Square (Area) (cm) 3.75 2.64 2.64 -Tunneling No No No -Undermining/Tunneling No No No -Circular Undermining No No No -Wound/Ulcer Outcome Not Healed Not Healed Not Healed -Ulcer Cleansing Rinsed/ Rinsed/ Rinsed/ Irrigated with Irrigated with Irrigated with Saline Saline Saline -Foul Odor after Cleansing No No No -Bioengineered Tissue No No No -Bleeding Controlled with Pressure Pressure Pressure -Treatment Response Procedure Procedure Procedure Tolerated Well Tolerated Well Tolerated Well -Debridement - Subq, 1st 20sq cm Yes Yes Yes Pain Scale: 0-10 Numeric Is Patient Pain Free? Yes Yes Yes WC - Nurse 3 - General Ulcer D/C NN Start: 04/02/24 08:22 Freq: Status: Active Protocol: Activity Type Activity Date Activity User E-sign Co-sign Detail Recorded Client Recorded Date Recorded By Document 04/02/24 08:54 KW [id number] 04/02/24 08:54 KW Document 04/09/24 09:42 KW [id number] 04/09/24 09:43 KW Document 04/23/24 09:33 RB [id number] 04/23/24 09:34 RB 04/02/24 04/09/24 04/23/24 08:54 09:42 09:33 Wound Care Center Nurse 3 4-ABDOMEN INFERIOR -Primary Dressing Applied NonAdherent NonAdherent Contact Layer, Contact Layer, Promogran Promogran -Primary Dressing Covered/Secured with Dry Gauze, Secured with Tape -Promogran 1 1 3-ABDOMEN SUPERIOR -Other Dressing adaptic and promogran with promogran adaptic -Primary Dressing Covered/Secured with Dry Gauze, Secured with Tape Pain Scale: 0-10 Numeric Is Patient Pain Free? Yes Yes Yes Teaching: Wound Center Dressing Your Wound -Person Taught Patient -Teaching Method Discussion, Demonstration -Response to teaching Verbalize Understanding WC - Visit Discharge Discharge Condition Stable Stable Stable Ambulatory Status Ambulatory Ambulatory Ambulatory Transportation Private Auto Private Auto Private Auto Accompanied by Medication Reconcilliation completed & No No No provided to patient/care provider Clinical Summary of Care Provided Yes Yes Yes 4-ABDOMEN INFERIOR -Ulcer Cleansing Rinsed/ Irrigated with Saline -Wound Comment(s) Copper dressing from home ABD /tape 3-ABDOMEN SUPERIOR -Wound Comment(s) copper dressing from home/abd Treatment Response Procedure Tolerated Well Additional Wound Wound debrided: Abdomen (inferior) Type of Debridement: Excisional debridement Anesthesia Used: 5% Lidocaine Gel Depth: Down to and including healthy tissue and in the subcutaneous layer Percentage of wound debrided: 100 Instrument Used: 5mm curette Tissue Removed: Slough and devitalized tissue Severity: Fat Layer Exposed Amount of bleeding with debridement: Mild Bleeding Controlled with: Pressure Patient tolerated procedure: Patient tolerated procedure well Assessment/Plan Assessment/Plan (1) Non-healing surgical wound: CODE(S): T81.89XA - Other complications of procedures, not elsewhere classified, initial encounter QUALIFIERS: Encounter type: subsequent encounter Qualified Code(s): T81.89XD - Other complications of procedures, not elsewhere classified, subsequent encounter (2) Type 2 diabetes mellitus: CODE(S): E11.9 - Type 2 diabetes mellitus without complications QUALIFIERS: Diabetes mellitus intermediate insulin use: without intermediate use Diabetes mellitus complication status: with skin complications Diabetes mellitus complication detail: with other skin complication Qualified Code(s): E11.628 - Type 2 diabetes mellitus with other skin complications (3) History of colostomy reversal: CODE(S): Z98.890 - Other specified postprocedural states (4) Surgical wound breakdown: CODE(S): T81.31XA - Disruption of external operation (surgical) wound, not elsewhere classified, initial encounter QUALIFIERS: Encounter type: initial encounter Qualified Code(s): T81.31XA - Disruption of external operation (surgical) wound, not elsewhere classified, initial encounter PLAN: Plan Debridement done as documented above, procedure was well-tolerated. No significant change since his last visit. Has some BRUNA wound crusting. Overall, it appears that he had done better on the copper dressing. There has been quite a bit of stalling despite changes in products. I strongly believe that he would benefit and achieve faster wound closure with a skin substitute. This had been initially denied by his insurance however, will try again. For now, switch to copper dressing and change every other day. [place] side down and moisten adequately. Moisten adequately to take off as well. Cover with [employer]. Continue Vaseline to BRUNA wound/ulcer area. Continue optimal diabetes control and dietary protein intake. Continue other chronic wound care management. His questions were answered and he was advised to let us know if he has any further questions or concerns. Follow-up in 1 week or sooner if needed. This note was generated with [employer] software. It may contain incorrect words, spelling, and punctuation that were not noted in checking the note before signing.
== END 2024-04-24 23:59 | disposition home or self-care (01) ==
LOC: WC 09:00
PROVIDERS: PCP Internal Medicine; Referring Provider Internal Medicine; Visit Provider Internal Medicine
DX: T81.31XA Disruption of external operation (surgical) wound, not elsewhere classified, initial encounter (principal); E11.628 Type 2 diabetes mellitus with other skin complications; T81.89XD Other complications of procedures, not elsewhere classified, subsequent encounter; Z98.890 Other specified postprocedural states
CPT/HCPCS: 11042

== ENCOUNTER 2024-05-21 08:00 | Outpatient (RCR) | payer OTHER, SELFPAY ==
[2024-04-25 00:33] VITALS: BP 160/84; PULSE 80; RESP 18; TEMP 36.6; BMI 36.9
[2024-04-30 08:21] VITALS: BP 157/87; PULSE 77; RESP 18; TEMP 36.1; BMI 36.9
--- NOTE | 2024-04-30 08:56 | PCM.WC.PN ---
History of Present Illness Date of Service: 04/30/24 Chief Complaint: Non healing surgical wound History of Wound: Mr. Duque is a 62 yo Last seen here over a month ago. He had been discharged due to plan for closure following colostomy reversal. Surgery was uneventful however, less than a week after surgery, he states that his wound breakdown/dehisced. Initially applied Dakin's dressing but subsequently, started a wound VAC. Since starting wound VAC, he states that there has been much better improvement. Currently set at 150 mmHg. History of diabetes mellitus which is well-controlled. He reports good protein intake. He feels well and denies any acute concerns at this time. Progress of Wound: No acute concerns at this time. Switched back to the copper dressing at his last visit. He states that he has been doing dressing changes as recommended, no concerns reported. Objective Data Objective Data Vital Signs: Vital Signs Temp Pulse Resp BP O2 Del Method 97.0 F L 77 18 157/87 H Room Air 04/30/24 08:21 04/30/24 08:21 04/30/24 08:21 04/30/24 08:21 04/30/24 08:21 Oxygen Delivery Method Room Air Weight: 250 lb Body Mass Index (BMI) 36.9 Charges/Coding Procedures Integumentary 111xxx-113xx: 07208 Hannah subq tissue 20 sq cm/< Physical Exam Const alert, oriented x3 and no apparent distress General Appearance: cooperative, comfortable and well kempt HEENT normocephalic, head/scalp atraumatic and hearing grossly normal bilaterally Eyes EOMs intact bilaterally General Eye: normal appearance of both eyes Neck full ROM and supple General: normal visual inspection Resp normal respiratory effort Effort and Inspection: able to speak in complete sentences GI non-tender and non-distended Skin Wounds: wounds noted size Size: See clinical note, bed granulating well, drainage purulent, margins well approximated, no odor and open Neuro oriented x3, CN's II-XII intact bilaterally, moves all extremities and no focal motor deficits Psych mental status grossly normal, thought process normal and cooperative Debridement Note Debridement Note Wound debrided: Abdomen (superior) Type of Debridement: Excisional debridement Anesthesia Used: 5% Lidocaine Gel Depth: Down to and including healthy tissue and in the subcutaneous layer Percentage of wound debrided: 100 Instrument Used: 5mm curette Tissue Removed: Slough and devitalized tissue Amount of bleeding with debridement: Mild Bleeding Controlled with: Pressure Patient tolerated procedure: Patient tolerated procedure well Post-Debridement Measurements and Additional Note: Post-Debridement Measurements/Treatment - Nurse 1 - General Ulcer Assessment Start: 04/30/24 08:21 Freq: Status: Active Protocol: JUSTIN Activity Type Activity Date Activity User E-sign Co-sign Detail Recorded Client Recorded Date Recorded By Document 04/30/24 08:21 [id number] 04/30/24 08:27 04/30/24 08:21 WC - Today's Visit Information Type of service 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 ) Arrival Mode Ambulatory Patient Identification Verified (Name & Yes ) Height and Weight Body Mass Index (BMI) 36.9 BMI Classification Obese Vital Signs Temperature (97.8 F-99.1 F) 97.0 F L Temperature Source Temporal Pulse Rate (60-100) 77 Pulse Location Monitor Respiratory Rate (12-18) 18 Respiratory rate source Observation Oxygen Delivery Method Room Air Blood Pressure (90/60-120/80) 157/87 H Blood Pressure Mean (mm Hg) 110 Source Monitor Position Sitting Blood Pressure Location Left Arm History Since Last Visit- (Skip if this is Patient's initial visit) Have you changed medications since your No last visit? Any new allergies or adverse reactions No Had a fall/change in ADL's that may No increase risk of falls Signs or symptoms of abuse and/or No neglect since last visit Have you been in the hospital since your No last visit? Has dressing in place as prescribed Yes Has compression in place as prescribed N/A Has offloadiing in place as prescribed N/A Experienced any changes in pain level or No management Left Footwear Regular Shoe Right Footwear Regular Shoe Pain Scale: 0-10 Numeric Is Patient Pain Free? Yes - Nurse 1 - General Ulcer Measurement Start: 04/30/24 08:21 Freq: Status: Active Protocol: Activity Type Activity Date Activity User E-sign Co-sign Detail Recorded Client Recorded Date Recorded By Document 04/30/24 08:21 [id number] 04/30/24 08:27 04/30/24 08:21 Wound Center Nurse 1 4-ABDOMEN INFERIOR -Current Size (cm) - Length 1.4 -Current Size (cm) - Width 0.5 -Current Size (cm) - Depth 0.1 -Total Square Cm 0.70 -Epithelialization Large 67-100% -Exudate Amt Small -Exudate Type Serosanguineous -Wound Margin Distinct, Outline Attached -Granulation Amt Large (67-100%) -Granulation Quality [place],Red -Necrosis Amt Small (1-33%) -Necrotic Tissue Type Adherent Slough -Texture (Bruna-wound Skin Appearance) Assessed, Scarring -Moisture (Bruna-wound Skin Appearance) Assessed -Color (Bruna-wound Skin Appearance) Assessed -Temperature (Bruna-wound Skin No Abnormality Appearance) (Pt Warm) -Tenderness on Palpation (Bruna-wound No Skin Appearance) -Ulcer Cleansing Rinsed/ Irrigated with Saline -Foul Odor after Cleansing No -Anesthetic Used 5% Lidocaine Gel 3-ABDOMEN SUPERIOR -Current Size (cm) - Length 3 -Current Size (cm) - Width 2.2 -Current Size (cm) - Depth 0.1 -Total Square Cm 6.6 -Date of Last Picture (Recall this 04/30/24 field) -Epithelialization Medium 34-66% -Exudate Amt Small -Exudate Type Serosanguineous -Wound Margin Distinct, Outline Attached -Granulation Amt Large (67-100%) -Granulation Quality [place],Red -Texture (Bruna-wound Skin Appearance) Assessed -Moisture (Bruna-wound Skin Appearance) Assessed -Color (Bruna-wound Skin Appearance) Assessed -Temperature (Bruna-wound Skin No Abnormality Appearance) (Pt Warm) -Tenderness on Palpation (Bruna-wound No Skin Appearance) -Ulcer Cleansing Rinsed/ Irrigated with Saline -Foul Odor after Cleansing No -Anesthetic Used 5% Lidocaine Gel WC - Nurse 2 - General Ulcer CM Notes Start: 04/30/24 08:21 Freq: Status: Active Protocol: Activity Type Activity Date Activity User E-sign Co-sign Detail Recorded Client Recorded Date Recorded By Document 04/30/24 08:38 [id number] 04/30/24 08:48 04/30/24 08:38 Wound Center Nurse 2 4-ABDOMEN INFERIOR -Time 08:39 -Correct Patient Yes -Correct Side, Site, Position Yes -Correct Procedure Yes -Procedure Performed Yes -Type of Procedure Debridement -Clinical Debridement Subcutaneous -Tissue Removed Subcutaneous -Post Debridement (cm) - Length 1.9 -Post Debridement (cm) - Width 1.1 -Post Debridement (cm) - Depth 0.1 -Total Square (Post) (cm) 2.09 -Area of Debridement (cm) - Length 1.9 -Area of Debridement (cm) - Width 1.1 -Total Square (Area) (cm) 2.09 -Tunneling No -Undermining/Tunneling No -Circular Undermining No -Wound/Ulcer Outcome Not Healed -Ulcer Cleansing Rinsed/ Irrigated with Saline -Foul Odor after Cleansing No -Bioengineered Tissue No -Bleeding Controlled with Pressure -Treatment Response Procedure Tolerated Well -Offloading No -Debridement - Subq, 1st 20sq cm No 3-ABDOMEN SUPERIOR -Time 08:41 -Correct Patient Yes -Correct Side, Site, Position Yes -Correct Procedure Yes -Procedure Performed Yes -Type of Procedure Debridement -Clinical Debridement Subcutaneous -Tissue Removed Subcutaneous -Post Debridement (cm) - Length 2.6 -Post Debridement (cm) - Width 1.7 -Post Debridement (cm) - Depth 0.1 -Total Square (Post) (cm) 4.42 -Area of Debridement (cm) - Length 2.6 -Area of Debridement (cm) - Width 1.7 -Total Square (Area) (cm) 4.42 -Tunneling No -Undermining/Tunneling No -Circular Undermining No -Wound/Ulcer Outcome Not Healed -Ulcer Cleansing Rinsed/ Irrigated with Saline -Foul Odor after Cleansing No -Bioengineered Tissue No -Bleeding Controlled with Pressure -Treatment Response Procedure Tolerated Well -Debridement - Subq, 1st 20sq cm Yes Pain Scale: 0-10 Numeric Is Patient Pain Free? Yes Additional Wound Wound debrided: Abdomen (inferior) Type of Debridement: Excisional debridement Anesthesia Used: 5% Lidocaine Gel Depth: Down to and including healthy tissue and in the subcutaneous layer Percentage of wound debrided: 100 Instrument Used: 5mm curette Tissue Removed: Slough and devitalized tissue Severity: Fat Layer Exposed Amount of bleeding with debridement: Mild Bleeding Controlled with: Pressure Patient tolerated procedure: Patient tolerated procedure well Assessment/Plan Assessment/Plan (1) Non-healing surgical wound: CODE(S): T81.89XA - Other complications of procedures, not elsewhere classified, initial encounter QUALIFIERS: Encounter type: subsequent encounter Qualified Code(s): T81.89XD - Other complications of procedures, not elsewhere classified, subsequent encounter (2) Type 2 diabetes mellitus: CODE(S): E11.9 - Type 2 diabetes mellitus without complications QUALIFIERS: 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 use: without intermediate school teacher use Diabetes mellitus complication status: with skin complications Diabetes mellitus complication detail: with other skin complication Qualified Code(s): E11.628 - Type 2 diabetes mellitus with other skin complications (3) History of colostomy reversal: CODE(S): Z98.890 - Other specified postprocedural states (4) Surgical wound breakdown: CODE(S): T81.31XA - Disruption of external operation (surgical) wound, not elsewhere classified, initial encounter QUALIFIERS: Encounter type: initial encounter Qualified Code(s): T81.31XA - Disruption of external operation (surgical) wound, not elsewhere classified, initial encounter PLAN: Plan Debridement done as documented above, procedure was well-tolerated. No improvement since his last visit. Concerning area of purulence noted in the inferior area, cultures taken. I still believe that he would benefit and achieve faster wound closure with a skin substitute. This had been initially denied by his insurance however, will try again. For now, continue copper dressing and change every other day. [place] side down and moisten adequately. Moisten adequately to take off as well. Cover with Adaptic. Continue Vaseline to BRUNA wound/ulcer area, this looks a lot better/less crusting. Optimal diabetes control and dietary protein intake. He admits that he has not been very compliant with his diet and his sugars have been higher lately. He was advised to reach out to his PCP for medication changes to achieve optimal blood glucose control. Continue other chronic wound care management. His questions were answered and he was advised to let us know if he has any further questions or concerns. Follow-up in 1 week or sooner if needed. This note was generated with [employer] software. It may contain incorrect words, spelling, and punctuation that were not noted in checking the note before signing.
[2024-05-07 08:50] VITALS: BP 135/83; PULSE 92; RESP 18; TEMP 36.8; BMI 36.9
--- NOTE | 2024-05-07 10:07 | PN.PCM_ITS ---
History of Present Illness Date of Service: 05/07/24 Chief Complaint: Non healing surgical wound History of Wound: Mr. Duque is a 62 yo Last seen here over a month ago. He had been discharged due to plan for closure following colostomy reversal. Surgery was uneventful however, less than a week after surgery, he states that his wound breakdown/dehisced. Initially applied Dakin's dressing but subsequently, started a wound VAC. Since starting wound VAC, he states that there has been much better improvement. Currently set at 150 mmHg. History of diabetes mellitus which is well-controlled. He reports good protein intake. He feels well and denies any acute concerns at this time. Progress of Wound: No new concerns reported at this time. No significant drainage reported. Recently started on insulin by his primary care physician due to persistently e levated blood glucose readings. Objective Data Objective Data Vital Signs: Vital Signs Temp Pulse Resp BP O2 Del Method 98.2 F 92 18 135/83 H Room Air 05/07/24 08:50 05/07/24 08:50 05/07/24 08:50 05/07/24 08:50 04/30/24 08:21 Oxygen Delivery Method Room Air Weight: 250 lb Body Mass Index (BMI) 36.9 Lab / Micro Data Micro: Microbiology 04/30/24 08:45 Wound - Abdominal Gram Stain - Final 04/30/24 08:45 Wound - Abdominal Wound Culture - Final Staphylococcus epidermidis Staphylococcus lugdunensis Staphylococcus capitis 04/30/24 08:45 Wound - Abdominal Anaerobic Culture - Final No anaerobic bacteria isolated. Charges/Coding Procedures Integumentary 111xxx-113xx: [id number] Hannah subq tissue 20 sq cm/< Physical Exam Const alert, oriented x3 and no apparent distress General Appearance: cooperative, comfortable and well kempt HEENT normocephalic, head/scalp atraumatic and hearing grossly normal bilaterally Eyes EOMs intact bilaterally General Eye: normal appearance of both eyes Neck full ROM and supple General: normal visual inspection Resp normal respiratory effort Effort and Inspection: able to speak in complete sentences GI non-tender and non-distended Skin Wounds: wounds noted size Size: See clinical note, bed granulating well, margins well approximated, no odor and open Neuro oriented x3, CN's II-XII intact bilaterally, moves all extremities and no focal motor deficits Psych mental status grossly normal, thought process normal and cooperative Debridement Note Debridement Note Wound debrided: Abdomen (superior) Type of Debridement: Excisional debridement Anesthesia Used: 5% Lidocaine Gel Depth: Down to and including healthy tissue and in the subcutaneous layer Percentage of wound debrided: 100 Instrument Used: 5mm curette Tissue Removed: Slough and devitalized tissue Severity: Fat Layer Exposed Amount of bleeding with debridement: Mild Bleeding Controlled with: Pressure Patient tolerated procedure: Patient tolerated procedure well Post-Debridement Measurements and Additional Note: Post-Debridement Measurements/Treatment - Nurse 1 - General Ulcer Assessment Start: 04/30/24 08:21 Freq: Status: Active Protocol: [id number] Activity Type Activity Date Activity User E-sign Co-sign Detail Recorded Client Recorded Date Recorded By Document 04/30/24 08:21 KW [id number] 04/30/24 08:27 KW Document 05/07/24 08:50 DL [id number] 05/07/24 08:57 DL 04/30/24 05/07/24 08:21 08:50 - Today's Visit Information Type of service Follow-up Visit Follow-up Visit (Physician/DEHORNER (Physician/DEHORNER ) ) Arrival Mode Ambulatory Ambulatory Transfer Assistance None Patient Identification Verified (Name & Yes Yes ) Patient Requires Transmission-Based No Precautions Height and Weight Body Mass Index (BMI) 36.9 36.9 BMI Classification Obese Obese Vital Signs Temperature (97.8 F-99.1 F) 97.0 F L 98.2 F Temperature Source Temporal Temporal Pulse Rate (60-100) 77 92 Pulse Location Monitor Monitor Respiratory Rate (12-18) 18 18 Respiratory rate source Observation Observation Oxygen Delivery Method Room Air Blood Pressure (90/60-120/80) 157/87 H 135/83 H Blood Pressure Mean (mm Hg) 110 100 Source Monitor Monitor Position Sitting Blood Pressure Location Left Arm History Since Last Visit- (Skip if this is Patient's initial visit) Have you changed medications since your No No last visit? Any new allergies or adverse reactions No No Had a fall/change in ADL's that may No No increase risk of falls Signs or symptoms of abuse and/or No No neglect since last visit Have you been in the hospital since your No No last visit? Has dressing in place as prescribed Yes Yes Has compression in place as prescribed N/A N/A Has offloadiing in place as prescribed N/A N/A Experienced any changes in pain level or No No management Left Footwear Regular Shoe Right Footwear Regular Shoe Pain Scale: 0-10 Numeric Is Patient Pain Free? Yes Yes WC - Nurse 1 - General Ulcer Measurement Start: 04/30/24 08:21 Freq: Status: Active Protocol: Activity Type Activity Date Activity User E-sign Co-sign Detail Recorded Client Recorded Date Recorded By Document 04/30/24 08:21 KW [id number] 04/30/24 08:27 KW Document 05/07/24 08:50 DL [id number] 05/07/24 08:57 DL 04/30/24 05/07/24 08:21 08:50 Wound Center Nurse 1 4-ABDOMEN INFERIOR -Current Size (cm) - Length 1.4 0.5 -Current Size (cm) - Width 0.5 0.7 -Current Size (cm) - Depth 0.1 0.1 -Total Square Cm 0.70 0.35 -Photo Taken Yes -Epithelialization Large 67-100% -Exudate Amt Small Medium -Exudate Type Serosanguineous Serosanguineous -Wound Margin Distinct, Distinct, Outline Outline Attached Attached -Granulation Amt Large (67-100%) Large (67-100%) -Granulation Quality Borger,Red Pale,Borger -Necrosis Amt Small (1-33%) Small (1-33%) -Necrotic Tissue Type Adherent Slough Adherent Slough -Structure Exposed N/A -Texture (Matilde-wound Skin Appearance) Assessed, Scarring Scarring -Moisture (Matilde-wound Skin Appearance) Assessed No Abnormality -Color (Matilde-wound Skin Appearance) Assessed No Abnormality -Temperature (Matilde-wound Skin No Abnormality No Abnormality Appearance) (Pt Warm) (Pt Warm) -Tenderness on Palpation (Matilde-wound No No Skin Appearance) -Ulcer Cleansing Rinsed/ Soap and Water Irrigated with Saline -Foul Odor after Cleansing No No -Anesthetic Used 5% Lidocaine 5% Lidocaine Gel Gel 3-ABDOMEN SUPERIOR -Current Size (cm) - Length 3 2 -Current Size (cm) - Width 2.2 1.5 -Current Size (cm) - Depth 0.1 0.1 -Total Square Cm 6.6 3.0 -Date of Last Picture (Recall this 04/30/24 field) -Photo Taken Yes -Epithelialization Medium 34-66% -Exudate Amt Small Medium -Exudate Type Serosanguineous Serosanguineous -Wound Margin Distinct, Distinct, Outline Outline Attached Attached -Granulation Amt Large (67-100%) Large (67-100%) -Granulation Quality Borger,Red Pale,Borger -Necrotic Tissue Type Adherent Slough -Structure Exposed N/A -Texture (Matilde-wound Skin Appearance) Assessed Scarring -Moisture (Matilde-wound Skin Appearance) Assessed No Abnormality -Color (Matilde-wound Skin Appearance) Assessed No Abnormality -Temperature (Matilde-wound Skin No Abnormality No Abnormality Appearance) (Pt Warm) (Pt Warm) -Tenderness on Palpation (Matilde-wound No No Skin Appearance) -Ulcer Cleansing Rinsed/ Soap and Water Irrigated with Saline -Foul Odor after Cleansing No No -Anesthetic Used 5% Lidocaine 5% Lidocaine Gel Gel WC - Nurse 2 - General Ulcer CM Notes Start: 04/30/24 08:21 Freq: Status: Active Protocol: Activity Type Activity Date Activity User E-sign Co-sign Detail Recorded Client Recorded Date Recorded By Document 04/30/24 08:38 [id number] 04/30/24 08:48 Document 05/07/24 09:18 [id number] 05/07/24 09:24 GM 04/30/24 05/07/24 08:38 09:18 Wound Center Nurse 2 4-ABDOMEN INFERIOR -Time 08:39 09:19 -Correct Patient Yes Yes -Correct Side, Site, Position Yes Yes -Correct Procedure Yes Yes -Procedure Performed Yes Yes -Type of Procedure Debridement Debridement -Clinical Debridement Subcutaneous Subcutaneous -Tissue Removed Subcutaneous Subcutaneous -Post Debridement (cm) - Length 1.9 1.2 -Post Debridement (cm) - Width 1.1 1.0 -Post Debridement (cm) - Depth 0.1 0.1 -Total Square (Post) (cm) 2.09 1.20 -Area of Debridement (cm) - Length 1.9 1.2 -Area of Debridement (cm) - Width 1.1 1.0 -Total Square (Area) (cm) 2.09 1.20 -Tunneling No No -Undermining/Tunneling No No -Circular Undermining No No -Wound/Ulcer Outcome Not Healed Not Healed -Ulcer Cleansing Rinsed/ Rinsed/ Irrigated with Irrigated with Saline Saline -Foul Odor after Cleansing No No -Bioengineered Tissue No No -Bleeding Controlled with Pressure Pressure -Treatment Response Procedure Procedure Tolerated Well Tolerated Well -Offloading No -Debridement - Open, 1st 20sq cm No -Debridement - Subq, 1st 20sq cm No No -Debridement - Muscle / Fascia, 1st No 20sq cm -Debridement - Bone, 1st 20sq cm No 3-ABDOMEN SUPERIOR -Time 08:41 09:19 -Correct Patient Yes Yes -Correct Side, Site, Position Yes Yes -Correct Procedure Yes Yes -Procedure Performed Yes Yes -Type of Procedure Debridement Debridement -Clinical Debridement Subcutaneous Subcutaneous -Tissue Removed Subcutaneous Subcutaneous -Post Debridement (cm) - Length 2.6 2.0 -Post Debridement (cm) - Width 1.7 1.5 -Post Debridement (cm) - Depth 0.1 0.1 -Total Square (Post) (cm) 4.42 3.00 -Area of Debridement (cm) - Length 2.6 2.0 -Area of Debridement (cm) - Width 1.7 1.5 -Total Square (Area) (cm) 4.42 3.00 -Tunneling No No -Undermining/Tunneling No No -Circular Undermining No No -Wound/Ulcer Outcome Not Healed Not Healed -Ulcer Cleansing Rinsed/ Rinsed/ Irrigated with Irrigated with Saline Saline -Foul Odor after Cleansing No No -Bioengineered Tissue No No -Bleeding Controlled with Pressure Pressure -Treatment Response Procedure Procedure Tolerated Well Tolerated Well -Debridement - Subq, 1st 20sq cm Yes Yes Pain Scale: 0-10 Numeric Is Patient Pain Free? Yes Yes WC - Nurse 3 - General Ulcer D/C NN Start: 04/30/24 08:21 Freq: Status: Active Protocol: Activity Type Activity Date Activity User E-sign Co-sign Detail Recorded Client Recorded Date Recorded By Document 04/30/24 09:04 CP [id number] 04/30/24 09:09 CP Document 05/07/24 09:34 CP [id number] 05/07/24 09:36 CP 04/30/24 05/07/24 09:04 09:34 Wound Care Center Nurse 3 4-ABDOMEN INFERIOR -Ulcer Cleansing Rinsed/ Rinsed/ Irrigated with Irrigated with Saline Saline -Foul Odor after Cleansing No -Other Dressing copper dressing copper, adaptic , adaptic , abd tape -Primary Dressing Covered/Secured with Dry Gauze, Secured with Tape 3-ABDOMEN SUPERIOR -Ulcer Cleansing Rinsed/ Rinsed/ Irrigated with Irrigated with Saline Saline -Other Dressing copper dressing copper, adaptic , adaptic -Primary Dressing Covered/Secured with Dry Gauze, Dry Gauze, Secured with Secured with Tape Tape Pain Scale: 0-10 Numeric Is Patient Pain Free? Yes Yes WC - Visit Discharge Discharge Condition Stable Stable Ambulatory Status Ambulatory Ambulatory Transportation Private Auto Private Auto Medication Reconcilliation completed & No provided to patient/care provider Clinical Summary of Care Provided Yes Yes Facility Type Home Health Orders Sent Yes Additional Wound Wound debrided: Abdomen (inferior) Type of Debridement: Excisional debridement Anesthesia Used: 5% Lidocaine Gel Depth: Down to and including healthy tissue and in the subcutaneous layer Percentage of wound debrided: 100 Instrument Used: 3mm curette Tissue Removed: Slough and devitalized tissue Severity: Fat Layer Exposed Amount of bleeding with debridement: Mild Bleeding Controlled with: Pressure Patient tolerated procedure: Patient tolerated procedure well Assessment/Plan Assessment/Plan (1) Non-healing surgical wound: CODE(S): T81.89XA - Other complications of procedures, not elsewhere classified, initial encounter QUALIFIERS: Encounter type: subsequent encounter Qualified Code(s): T81.89XD - Other complications of procedures, not elsewhere classified, subsequent encounter (2) Type 2 diabetes mellitus: CODE(S): E11.9 - Type 2 diabetes mellitus without complications 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: 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: without 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 supervisor use Diabetes mellitus complication status: with skin complications Diabetes mellitus complication detail: with other skin complication Qualified Code(s): E11.628 - Type 2 diabetes mellitus with other skin complications (3) History of colostomy reversal: CODE(S): Z98.890 - Other specified postprocedural states (4) Surgical wound breakdown: CODE(S): T81.31XA - Disruption of external operation (surgical) wound, not elsewhere classified, initial encounter QUALIFIERS: Encounter type: initial encounter Qualified Code(s): T81.31XA - Disruption of external operation (surgical) wound, not elsewhere classified, initial encounter PLAN: Plan Debridement done as documented above, procedure was well-tolerated. Some improvement noted. As above, no drainage reported or noted. Cultures reviewed, very rare growth however given history of diabetes and concern for purulence at his last visit, will treat with doxycycline for 7 days. Continue copper dressing and change every other day. [place] side down and moisten adequately. Moisten adequately to take off as well. Cover with Adaptic. Continue Vaseline to MATILDE wound/ulcer area, this looks a lot better/less crusting. Optimal diabetes control and dietary protein intake. Has been started on insulin by his PCP due to suboptimal control, hopefully with optimize diabetes control this helps with wound healing. Continue other chronic wound care management. His questions were answered and he was advised to let us know if he has any further questions or concerns. Follow-up in 1 week or sooner if needed. This note was generated with [employer] dictation software. It may contain incorrect words, spelling, and punctuation that were not noted in checking the note before signing.
--- NOTE | 2024-05-08 12:03 | WC ---
PHOTO 05/07/24 ABNER COLEMAN
--- NOTE | 2024-05-08 12:07 | WC ---
PHOTO 05/07/24 ABD INF
[2024-05-14 08:38] VITALS: BP 146/87; PULSE 86; RESP 18; TEMP 36.6; BMI 36.9
--- NOTE | 2024-05-14 09:17 | PN.PCM_ITS ---
History of Present Illness Date of Service: 05/14/24 Chief Complaint: Non healing surgical wound History of Wound: Mr. Duque is a 62 yo Last seen here over a month ago. He had been discharged due to plan for closure following colostomy reversal. Surgery was uneventful however, less than a week after surgery, he states that his wound breakdown/dehisced. Initially applied Dakin's dressing but subsequently, started a wound VAC. Since starting wound VAC, he states that there has been much better improvement. Currently set at 150 mmHg. History of diabetes mellitus which is well-controlled. He reports good protein intake. He feels well and denies any acute concerns at this time. Progress of Wound: No acute concerns at this time. Tolerated antibiotic well so far. An adjacent area of swelling said to have improved since going on the antibiotics. Has been doing dressing changes as recommended. Objective Data Objective Data Vital Signs: Vital Signs Temp Pulse Resp BP O2 Del Method 98 F 86 18 146/87 H Room Air 05/14/24 08:38 05/14/24 08:38 05/14/24 08:38 05/14/24 08:38 04/30/24 08:21 Oxygen Delivery Method Room Air Weight: 250 lb Body Mass Index (BMI) 36.9 Lab / Micro Data Micro: Microbiology 04/30/24 08:45 Wound - Abdominal Gram Stain - Final 04/30/24 08:45 Wound - Abdominal Wound Culture - Final Staphylococcus epidermidis Staphylococcus lugdunensis Staphylococcus capitis 04/30/24 08:45 Wound - Abdominal Anaerobic Culture - Final No anaerobic bacteria isolated. Charges/Coding Procedures Integumentary [id number]: [id number] Hannah subq tissue 20 sq cm/< Physical Exam Const alert, oriented x3 and no apparent distress General Appearance: cooperative, comfortable and well kempt HEENT normocephalic, head/scalp atraumatic and hearing grossly normal bilaterally Eyes EOMs intact bilaterally General Eye: normal appearance of both eyes Neck full ROM and supple General: normal visual inspection Resp normal respiratory effort Effort and Inspection: able to speak in complete sentences GI non-tender and non-distended Skin Wounds: wounds noted size Size: See clinical note, bed granulating well, margins well approximated, no odor, open and surrounding erythema Neuro oriented x3, CN's II-XII intact bilaterally, moves all extremities and no focal motor deficits Psych mental status grossly normal, thought process normal, cooperative and affect normal Debridement Note Debridement Note Wound debrided: Abdomen (superior) Type of Debridement: Excisional debridement Anesthesia Used: 5% Lidocaine Gel Depth: in the subcutaneous layer Percentage of wound debrided: 100 Instrument Used: 5mm curette Tissue Removed: Slough and devitalized tissue Severity: Fat Layer Exposed Amount of bleeding with debridement: Mild Bleeding Controlled with: Pressure Patient tolerated procedure: Patient tolerated procedure well Post-Debridement Measurements and Additional Note: Post-Debridement Measurements/Treatment - Nurse 1 - General Ulcer Assessment Start: 04/30/24 08:21 Freq: Status: Active Protocol: JUSTIN Activity Type Activity Date Activity User E-sign Co-sign Detail Recorded Client Recorded Date Recorded By Document 04/30/24 08:21 KW [id number] 04/30/24 08:27 KW Document 05/07/24 08:50 DL [id number] 05/07/24 08:57 DL Document 05/14/24 08:38 RB [id number] 05/14/24 08:45 RB 04/30/24 05/07/24 05/14/24 08:21 08:50 08:38 - Today's Visit Information Type of service Follow-up Visit Follow-up Visit Follow-up Visit (Physician/DIETARY SERVER (Physician/DIETARY SERVER (Physician/DIETARY SERVER ) ) ) Arrival Mode Ambulatory Ambulatory Ambulatory Transfer Assistance None None Patient Identification Verified (Name & Yes Yes Yes ) Patient Requires Transmission-Based No No Precautions Height and Weight Body Mass Index (BMI) 36.9 36.9 36.9 BMI Classification Obese Obese Obese Vital Signs Temperature (97.8 F-99.1 F) 97.0 F L 98.2 F 98 F Temperature Source Temporal Temporal Temporal Pulse Rate (60-100) 77 92 86 Pulse Location Monitor Monitor Monitor Respiratory Rate (12-18) 18 18 18 Respiratory rate source Observation Observation Observation Oxygen Delivery Method Room Air Blood Pressure (90/60-120/80) 157/87 H 135/83 H 146/87 H Blood Pressure Mean (mm Hg) 110 100 106 Source Monitor Monitor Monitor Position Sitting Semi-Fowlers Blood Pressure Location Left Arm Left Arm History Since Last Visit- (Skip if this is Patient's initial visit) Have you changed medications since your No No No last visit? Any new allergies or adverse reactions No No No Had a fall/change in ADL's that may No No No increase risk of falls Signs or symptoms of abuse and/or No No No neglect since last visit Have you been in the hospital since your No No No last visit? Has dressing in place as prescribed Yes Yes Yes Has compression in place as prescribed N/A N/A N/A Has offloadiing in place as prescribed N/A N/A N/A Experienced any changes in pain level or No No No management Left Footwear Regular Shoe Regular Shoe Right Footwear Regular Shoe Regular Shoe Pain Scale: 0-10 Numeric Is Patient Pain Free? Yes Yes Yes WC - Nurse 1 - General Ulcer Measurement Start: 04/30/24 08:21 Freq: Status: Active Protocol: Activity Type Activity Date Activity User E-sign Co-sign Detail Recorded Client Recorded Date Recorded By Document 04/30/24 08:21 KW [id number] 04/30/24 08:27 KW Document 05/07/24 08:50 DL [id number] 05/07/24 08:57 DL Document 05/14/24 08:38 RB [id number] 05/14/24 08:45 RB 04/30/24 05/07/24 05/14/24 08:21 08:50 08:38 Wound Center Nurse 1 4-ABDOMEN INFERIOR -Combined with other wound No -Current Size (cm) - Length 1.4 0.5 1 -Current Size (cm) - Width 0.5 0.7 1.2 -Current Size (cm) - Depth 0.1 0.1 0.1 -Total Square Cm 0.70 0.35 1.2 -Photo Taken Yes Yes -Epithelialization Large 67-100% -Tunneling No -Undermining/Tunneling No -Circular Undermining No -Exudate Amt Small Medium Medium -Exudate Type Serosanguineous Serosanguineous Serosanguineous -Wound Margin Distinct, Distinct, Distinct, Outline Outline Outline Attached Attached Attached -Granulation Amt Large (67-100%) Large (67-100%) Medium (34-66%) -Granulation Quality [place] -Slough/Fibrin Yes -Necrosis Amt Small (1-33%) Small (1-33%) Medium (34-66%) -Necrotic Tissue Type Adherent Slough Adherent Slough Adherent Slough -Structure Exposed N/A N/A -Texture (Bruna-wound Skin Appearance) Assessed, Scarring Assessed, Scarring Scarring -Moisture (Bruna-wound Skin Appearance) Assessed No Abnormality Assessed -Color (Bruna-wound Skin Appearance) Assessed No Abnormality Assessed -Temperature (Bruna-wound Skin No Abnormality No Abnormality No Abnormality Appearance) (Pt Warm) (Pt Warm) (Pt Warm) -Tenderness on Palpation (Bruna-wound No No No Skin Appearance) -Ulcer Cleansing Rinsed/ Soap and Water Wound Cleanser Irrigated with Saline -Foul Odor after Cleansing No No No -Anesthetic Used 5% Lidocaine 5% Lidocaine 5% Lidocaine Gel Gel Gel 3-ABDOMEN SUPERIOR -Combined with other wound No -Current Size (cm) - Length 3 2 3 -Current Size (cm) - Width 2.2 1.5 2 -Current Size (cm) - Depth 0.1 0.1 0.1 -Total Square Cm 6.6 3.0 6 -Date of Last Picture (Recall this 04/30/24 field) -Photo Taken Yes Yes -Epithelialization Medium 34-66% -Tunneling No -Undermining/Tunneling No -Circular Undermining No -Exudate Amt Small Medium Medium -Exudate Type Serosanguineous Serosanguineous Serosanguineous -Wound Margin Distinct, Distinct, Distinct, Outline Outline Outline Attached Attached Attached -Granulation Amt Large (67-100%) Large (67-100%) Medium (34-66%) -Granulation Quality [place] -Slough/Fibrin Yes -Necrosis Amt Medium (34-66%) -Necrotic Tissue Type Adherent Slough Adherent Slough -Structure Exposed N/A N/A -Texture (Bruna-wound Skin Appearance) Assessed Scarring Assessed, Scarring -Moisture (Bruna-wound Skin Appearance) Assessed No Abnormality Assessed -Color (Bruna-wound Skin Appearance) Assessed No Abnormality Assessed -Temperature (Bruna-wound Skin No Abnormality No Abnormality No Abnormality Appearance) (Pt Warm) (Pt Warm) (Pt Warm) -Tenderness on Palpation (Bruna-wound No No No Skin Appearance) -Ulcer Cleansing Rinsed/ Soap and Water Wound Cleanser Irrigated with Saline -Foul Odor after Cleansing No No No -Anesthetic Used 5% Lidocaine 5% Lidocaine 5% Lidocaine Gel Gel Gel WC - Nurse 2 - General Ulcer CM Notes Start: 04/30/24 08:21 Freq: Status: Active Protocol: Activity Type Activity Date Activity User E-sign Co-sign Detail Recorded Client Recorded Date Recorded By Document 04/30/24 08:38 [id number] 04/30/24 08:48 Document 05/07/24 09:18 [id number] 05/07/24 09:24 Document 05/14/24 08:57 [id number] 05/14/24 09:03 04/30/24 05/07/24 05/14/24 08:38 09:18 08:57 Wound Center Nurse 2 4-ABDOMEN INFERIOR -Time 08:39 09:19 08:58 -Correct Patient Yes Yes Yes -Correct Side, Site, Position Yes Yes Yes -Correct Procedure Yes Yes Yes -Procedure Performed Yes Yes Yes -Type of Procedure Debridement Debridement Debridement -Clinical Debridement Subcutaneous Subcutaneous Subcutaneous -Tissue Removed Subcutaneous Subcutaneous Subcutaneous -Post Debridement (cm) - Length 1.9 1.2 1.1 -Post Debridement (cm) - Width 1.1 1.0 1.0 -Post Debridement (cm) - Depth 0.1 0.1 0.1 -Total Square (Post) (cm) 2.09 1.20 1.10 -Area of Debridement (cm) - Length 1.9 1.2 1.1 -Area of Debridement (cm) - Width 1.1 1.0 1.0 -Total Square (Area) (cm) 2.09 1.20 1.10 -Tunneling No No No -Undermining/Tunneling No No No -Circular Undermining No No No -Wound/Ulcer Outcome Not Healed Not Healed Not Healed -Ulcer Cleansing Rinsed/ Rinsed/ Rinsed/ Irrigated with Irrigated with Irrigated with Saline Saline Saline -Foul Odor after Cleansing No No No -Bioengineered Tissue No No No -Bleeding Controlled with Pressure Pressure Pressure -Treatment Response Procedure Procedure Procedure Tolerated Well Tolerated Well Tolerated Well -Offloading No -Debridement - Open, 1st 20sq cm No -Debridement - Subq, 1st 20sq cm No No No -Debridement - Muscle / Fascia, 1st No 20sq cm -Debridement - Bone, 1st 20sq cm No 3-ABDOMEN SUPERIOR -Time 08:41 09:19 08:58 -Correct Patient Yes Yes Yes -Correct Side, Site, Position Yes Yes Yes -Correct Procedure Yes Yes Yes -Procedure Performed Yes Yes Yes -Type of Procedure Debridement Debridement Debridement -Clinical Debridement Subcutaneous Subcutaneous Subcutaneous -Tissue Removed Subcutaneous Subcutaneous Subcutaneous -Post Debridement (cm) - Length 2.6 2.0 2.7 -Post Debridement (cm) - Width 1.7 1.5 1.1 -Post Debridement (cm) - Depth 0.1 0.1 0.1 -Total Square (Post) (cm) 4.42 3.00 2.97 -Area of Debridement (cm) - Length 2.6 2.0 2.7 -Area of Debridement (cm) - Width 1.7 1.5 1.1 -Total Square (Area) (cm) 4.42 3.00 2.97 -Tunneling No No No -Undermining/Tunneling No No No -Circular Undermining No No No -Wound/Ulcer Outcome Not Healed Not Healed Not Healed -Ulcer Cleansing Rinsed/ Rinsed/ Rinsed/ Irrigated with Irrigated with Irrigated with Saline Saline Saline -Foul Odor after Cleansing No No No -Bioengineered Tissue No No No -Bleeding Controlled with Pressure Pressure Pressure -Treatment Response Procedure Procedure Tolerated Well Tolerated Well -Offloading No -Debridement - Subq, 1st 20sq cm Yes Yes Yes Pain Scale: 0-10 Numeric Is Patient Pain Free? Yes Yes Yes - Nurse 3 - General Ulcer D/C NN Start: 04/30/24 08:21 Freq: Status: Active Protocol: Activity Type Activity Date Activity User E-sign Co-sign Detail Recorded Client Recorded Date Recorded By Document 04/30/24 09:04 CP [id number] 04/30/24 09:09 CP Document 05/07/24 09:34 CP [id number] 05/07/24 09:36 CP 04/30/24 05/07/24 09:04 09:34 Wound Care Center Nurse 3 4-ABDOMEN INFERIOR -Ulcer Cleansing Rinsed/ Rinsed/ Irrigated with Irrigated with Saline Saline -Foul Odor after Cleansing No -Other Dressing copper dressing copper, adaptic , adaptic , abd tape -Primary Dressing Covered/Secured with Dry Gauze, Secured with Tape 3-ABDOMEN SUPERIOR -Ulcer Cleansing Rinsed/ Rinsed/ Irrigated with Irrigated with Saline Saline -Other Dressing copper dressing copper, adaptic , adaptic -Primary Dressing Covered/Secured with Dry Gauze, Dry Gauze, Secured with Secured with Tape Tape Pain Scale: 0-10 Numeric Is Patient Pain Free? Yes Yes - Visit Discharge Discharge Condition Stable Stable Ambulatory Status Ambulatory Ambulatory Transportation Private Auto Private Auto Medication Reconcilliation completed & No provided to patient/care provider Clinical Summary of Care Provided Yes Yes Facility Type Home Health Orders Sent Yes Additional Wound Wound debrided: Abdomen (inferior) Type of Debridement: Excisional debridement Anesthesia Used: 5% Lidocaine Gel Depth: Down to and including healthy tissue and in the subcutaneous layer Percentage of wound debrided: 100 Instrument Used: 7mm curette Tissue Removed: Slough and devitalized tissue Severity: Fat Layer Exposed Amount of bleeding with debridement: Mild Bleeding Controlled with: Pressure Patient tolerated procedure: Patient tolerated procedure well Assessment/Plan Assessment/Plan (1) Non-healing surgical wound: CODE(S): T81.89XA - Other complications of procedures, not elsewhere classified, initial encounter QUALIFIERS: Encounter type: subsequent encounter Qualified Code(s): T81.89XD - Other complications of procedures, not elsewhere classified, subsequent encounter (2) Type 2 diabetes mellitus: CODE(S): E11.9 - Type 2 diabetes mellitus without complications QUALIFIERS: Diabetes mellitus halfway insulin use: without halfway use Diabetes mellitus complication status: with skin complications Diabetes mellitus complication detail: with other skin complication Qualified Code(s): E11.628 - Type 2 diabetes mellitus with other skin complications (3) History of colostomy reversal: CODE(S): Z98.890 - Other specified postprocedural states (4) Surgical wound breakdown: CODE(S): T81.31XA - Disruption of external operation (surgical) wound, not elsewhere classified, initial encounter QUALIFIERS: Encounter type: initial encounter Qualified Code(s): T81.31XA - Disruption of external operation (surgical) wound, not elsewhere classified, initial encounter PLAN: Plan Debridement done as documented above, procedure was well-tolerated. No acute concerns and no significant change since his last visit. Denies any drainage or pain. As above, an adjacent area of swelling said to have come down since going on doxycycline, will extend to complete 10 days. Continue copper dressing and change every other day. [place] side down and moisten adequately. Moisten adequately to take off as well. Cover with Adaptic. Continue Vaseline to BRUNA wound/ulcer area. Optimal diabetes control and dietary protein intake. Blood glucose readings still not at goal but better. Average fasting blood sugars said to be around 160. Working with his primary care physician to adjust his insulin, optimal diabetes control recommended. Continue other chronic wound care management. His questions were answered and he was advised to let us know if he has any further questions or concerns. Follow-up in 1 week for a courtesy visit and in 2 weeks with me. This note was generated with [employer] dictation software. It may contain incorrect words, spelling, and punctuation that were not noted in checking the note before signing.
--- NOTE | 2024-05-15 08:32 | WC ---
PHOTO 05/14/24 ABD
--- NOTE | 2024-05-15 08:40 | WC ---
PHOTO 05/14/24 ABD SUP
[2024-05-21 08:02] VITALS: BP 143/82; PULSE 81; RESP 16; TEMP 35.9; BMI 36.9
--- NOTE | 2024-05-22 08:49 | WC ---
PHOTO 05/21/24 ABNER COLEMAN
--- NOTE | 2024-05-22 08:51 | WC ---
PHOTO 05/21/24 ABD INF
--- NOTE | 2024-05-22 09:22 | WC ---
PHOTO 05/21/24 ABD INF
--- NOTE | 2024-05-22 13:23 | PCM.WC.HP ---
History of Present Illness Date of Service: 05/21/24 Chief Complaint: Non healing surgical wound History of Wound: Mr. Duque is a 63 yo male who underwent partial colectomy and diverting colostomy in July 2022 as a result of perforated diverticulitis. One year later, in July 2023, the patient underwent colostomy reversal, and reestablishment of colonic continuity. The patient's colostomy site has healed in satisfactory fashion. However, his midline surgical incision has suffered from a dehiscence, for which he has been treated at the [facility]. Previous treatment has included the use of the wound VAC. The patient is known to be diabetic, and thought to be reasonably well-controlled. He reports good protein intake. Progress of Wound: No acute concerns at this time. Tolerated antibiotic well so far. An adjacent area of swelling said to have improved since going on the antibiotics. Has been doing dressing changes as recommended. [facility] Medical History Surgical wound breakdown Type 2 diabetes mellitus [address] in place Non-healing surgical wound Debility Pneumonia due to COVID-19 virus Acute respiratory failure with hypoxia Acute kidney injury Left inguinal hernia Hypertension Diverticulosis Diabetes mellitus Asthma Perforation of sigmoid colon due to diverticulitis Home Medications ?Medication ?Instructions ?Recorded ?Last Taken ?Type acetaminophen 500 mg tablet 500 mg PO Q6H PRN pain (scale 09/12/22 Unknown History score 1-3) insulin NPH isoph U-100 human 100 6 unit subcut BID Diabetes 09/12/22 09/12/22 08:35 History unit/mL (3 mL) subcutaneous pen (Humulin N NPH U-100 Insulin KwikPen) losartan 100 mg tablet (Cozaar) 100 mg PO DAILY Blood pressure 09/12/22 09/12/22 12:30 History pantoprazole 40 mg tablet,delayed 40 mg PO BID GERD 09/12/22 Unknown History release polyethylene glycol 3350 17 gram 17 g PO DAILY Constipation 09/12/22 09/12/22 08:35 History oral powder packet ascorbic acid (vitamin C) 500 mg 500 mg PO BREAKFAST 30 days #30 09/25/22 Unknown Rx tablet tabs polysaccharide iron complex 150 mg 150 mg PO DAILY 30 days #30 caps 09/25/22 Unknown Rx iron capsule (Ferrex) IC CANDESARTA 02/21/23 Unknown History candesartan 32 mg tablet (Atacand) 32 mg PO DAILY 03/28/23 Unknown History hydrochlorothiazide 25 mg tablet 25 mg PO DAILY 03/28/23 Unknown History sitagliptin phosphate 50 1 tab PO BID 03/28/23 Unknown History mg-metformin 500 mg tablet (Janumet) amlodipine 5 mg tablet 5 mg PO DAILY 05/09/23 Unknown History metoprolol succinate 50 mg capsule 50 mg PO DAILY 07/11/23 Unknown History sprinkle, ext. release 24 hr cefdinir 300 mg capsule 300 mg PO BID #20 caps 10/26/23 Unknown Rx Toujeo SoloStar U-300 Insulin 05/07/24 Unknown History Allergy/AdvReac Type Severity Reaction Status Date / Time aspirin Allergy Intermediate Hives Verified 10/04/22 08:20 Poultry Allergy Unknown Other Verified 10/04/22 08:20 iodine Allergy Shortness Verified 10/04/22 08:20 of breath Family History Mother Breast cancer Father Myocardial infarction Hypertension Colon cancer Grandmother Diabetes Grandfather Diabetes Surgical History History of colostomy reversal S/P colectomy History of left inguinal hernia repair History of tooth extraction History of excision of dermoid cyst Social History household members: spouse Smoking Status: Never smoker alcohol intake: never substance use type: does not use Vital Signs Vital Signs Vital Signs: Weight Weight: 250 lb Body Mass Index (BMI) 36.9 Physical Exam Const alert, oriented x3 and no apparent distress General Appearance: cooperative, comfortable, well kempt and well developed Orientation / Consciousness: awake, oriented to person, oriented to place and oriented to time Exam Limitations: no limitations HEENT normocephalic, head/scalp atraumatic and hearing grossly normal bilaterally Head and Scalp: normal to inspection, normocephalic and atraumatic Face and Sinus: normal facial exam Nose: external nose normal External Ear: external ears normal Eyes EOMs intact bilaterally General Eye: normal appearance of both eyes Neck full ROM General: normal visual inspection Resp normal respiratory effort, normal air movement, no retractions and no use of accessory muscles Effort and Inspection: able to speak in complete sentences GI non-tender and non-distended Skin Wounds: wounds noted size Size: See clinical note, bed granulating well, margins well approximated, no odor, open and surrounding erythema Wound Narrative: A well?healed colostomy site is noted on the left side of the patient's abdomen. A vertical midline incision is noted, with a dehiscent wound at the superior and inferior pole of the incision. Each wound extends well into the dermal layers. Dimensions are documented elsewhere. There is no sign of infection or cellulitis. Wound margins are well beveled. There is no undermining or tunneling. Neuro oriented x3, CN's II-XII intact bilaterally, moves all extremities and no focal motor deficits Sensorium / Orientation: awake, alert, oriented to person, oriented to place and oriented to time Psych mental status grossly normal, thought process normal, cooperative and affect normal Debridement Note Debridement Note Wound debrided: Abdomen (superior) Laterality: Not Applicable (Midline) Type of Debridement: Selective debridement Anesthesia Used: 5% Lidocaine Gel Depth: Down to and including healthy tissue Percentage of wound debrided: 100 Instrument Used: 5mm curette Tissue Removed: Bioburden and devitalized tissue Severity: Fat Layer Exposed Amount of bleeding with debridement: Mild Bleeding Controlled with: Compression and gauze Patient tolerated procedure: Patient tolerated procedure well Post-Debridement Measurements and Additional Note: Post-Debridement Measurements/Treatment - Nurse 1 - General Ulcer Assessment Start: 04/30/24 08:21 Freq: Status: Active Protocol: JUSTIN Activity Type Activity Date Activity User E-sign Co-sign Detail Recorded Client Recorded Date Recorded By Document 04/30/24 08:21 KW [id number] 04/30/24 08:27 KW Document 05/07/24 08:50 DL [id number] 05/07/24 08:57 DL Document 05/14/24 08:38 RB [id number] 05/14/24 08:45 RB Document 05/21/24 08:02 KW [id number] 05/21/24 08:10 KW 04/30/24 05/07/24 05/14/24 08:21 08:50 08:38 - Today's Visit Information Type of service Follow-up Visit Follow-up Visit Follow-up Visit (Physician/SOFTWARE SYSTEMS ARCHITECT (Physician/SOFTWARE SYSTEMS ARCHITECT (Physician/SOFTWARE SYSTEMS ARCHITECT ) ) ) Arrival Mode Ambulatory Ambulatory Ambulatory Transfer Assistance None None Accompanied by Patient Identification Verified (Name & Yes Yes Yes ) Patient Requires Transmission-Based No No Precautions Height and Weight Body Mass Index (BMI) 36.9 36.9 36.9 BMI Classification Obese Obese Obese Vital Signs Temperature (97.8 F-99.1 F) 97.0 F L 98.2 F 98 F Temperature Source Temporal Temporal Temporal Pulse Rate (60-100) 77 92 86 Pulse Location Monitor Monitor Monitor Respiratory Rate (12-18) 18 18 18 Respiratory rate source Observation Observation Observation Oxygen Delivery Method Room Air Blood Pressure (90/60-120/80) 157/87 H 135/83 H 146/87 H Blood Pressure Mean 110 100 106 Source Monitor Monitor Monitor Position Sitting Semi-Fowlers Blood Pressure Location Left Arm Left Arm History Since Last Visit- (Skip if this is Patient's initial visit) Have you changed medications since your No No No last visit? Any new allergies or adverse reactions No No No Had a fall/change in ADL's that may No No No increase risk of falls Signs or symptoms of abuse and/or No No No neglect since last visit Have you been in the hospital since your No No No last visit? Has dressing in place as prescribed Yes Yes Yes Has compression in place as prescribed N/A N/A N/A Has offloadiing in place as prescribed N/A N/A N/A Experienced any changes in pain level or No No No management Left Footwear Regular Shoe Regular Shoe Right Footwear Regular Shoe Regular Shoe Pain Scale: 0-10 Numeric Is Patient Pain Free? Yes Yes Yes 05/21/24 08:02 WC - Today's Visit Information Type of service Follow-up Visit (Physician/SOFTWARE SYSTEMS ARCHITECT ) Arrival Mode Ambulatory Transfer Assistance Accompanied by Patient Identification Verified (Name & Yes ) Patient Requires Transmission-Based Precautions Height and Weight Body Mass Index (BMI) 36.9 BMI Classification Obese Vital Signs Temperature (97.8 F-99.1 F) 96.6 F L Temperature Source Temporal Pulse Rate (60-100) 81 Pulse Location Monitor Respiratory Rate (12-18) 16 Respiratory rate source Observation Oxygen Delivery Method Room Air Blood Pressure (90/60-120/80) 143/82 H Blood Pressure Mean 102 Source Monitor Position Semi-Fowlers Blood Pressure Location Left Arm History Since Last Visit- (Skip if this is Patient's initial visit) Have you changed medications since your No last visit? Any new allergies or adverse reactions No Had a fall/change in ADL's that may No increase risk of falls Signs or symptoms of abuse and/or No neglect since last visit Have you been in the hospital since your No last visit? Has dressing in place as prescribed Yes Has compression in place as prescribed N/A Has offloadiing in place as prescribed N/A Experienced any changes in pain level or No management Left Footwear Regular Shoe Right Footwear Regular Shoe Pain Scale: 0-10 Numeric Is Patient Pain Free? Yes WC - Nurse 1 - General Ulcer Measurement Start: 04/30/24 08:21 Freq: Status: Active Protocol: Activity Type Activity Date Activity User E-sign Co-sign Detail Recorded Client Recorded Date Recorded By Document 04/30/24 08:21 KW [id number] 04/30/24 08:27 KW Document 05/07/24 08:50 DL [id number] 05/07/24 08:57 DL Document 05/14/24 08:38 RB [id number] 05/14/24 08:45 RB Document 05/21/24 08:02 KW [id number] 05/21/24 08:10 KW 04/30/24 05/07/24 05/14/24 08:21 08:50 08:38 Wound Center Nurse 1 4-ABDOMEN INFERIOR -Combined with other wound No -Current Size (cm) - Length 1.4 0.5 1 -Current Size (cm) - Width 0.5 0.7 1.2 -Current Size (cm) - Depth 0.1 0.1 0.1 -Total Square Cm 0.70 0.35 1.2 -Date of Last Picture (Recall this field) -Photo Taken Yes Yes -Epithelialization Large 67-100% -Tunneling No -Undermining/Tunneling No -Circular Undermining No -Exudate Amt Small Medium Medium -Exudate Type Serosanguineous Serosanguineous Serosanguineous -Wound Margin Distinct, Distinct, Distinct, Outline Outline Outline Attached Attached Attached -Granulation Amt Large (67-100%) Large (67-100%) Medium (34-66%) -Granulation Quality [place],Red Pale,[place] -Slough/Fibrin Yes -Necrosis Amt Small (1-33%) Small (1-33%) Medium (34-66%) -Necrotic Tissue Type Adherent Slough Adherent Slough Adherent Slough -Structure Exposed N/A N/A -Texture (Mohinder-wound Skin Appearance) Assessed, Scarring Assessed, Scarring Scarring -Moisture (Mohinder-wound Skin Appearance) Assessed No Abnormality Assessed -Color (Mohinder-wound Skin Appearance) Assessed No Abnormality Assessed -Temperature (Mohinder-wound Skin No Abnormality No Abnormality No Abnormality Appearance) (Pt Warm) (Pt Warm) (Pt Warm) -Tenderness on Palpation (Mohinder-wound No No No Skin Appearance) -Ulcer Cleansing Rinsed/ Soap and Water Wound Cleanser Irrigated with Saline -Foul Odor after Cleansing No No No -Anesthetic Used 5% Lidocaine 5% Lidocaine 5% Lidocaine Gel Gel Gel 3-ABDOMEN SUPERIOR -Combined with other wound No -Current Size (cm) - Length 3 2 3 -Current Size (cm) - Width 2.2 1.5 2 -Current Size (cm) - Depth 0.1 0.1 0.1 -Total Square Cm 6.6 3.0 6 -Date of Last Picture (Recall this 04/30/24 field) -Photo Taken Yes Yes -Epithelialization Medium 34-66% -Tunneling No -Undermining/Tunneling No -Circular Undermining No -Exudate Amt Small Medium Medium -Exudate Type Serosanguineous Serosanguineous Serosanguineous -Wound Margin Distinct, Distinct, Distinct, Outline Outline Outline Attached Attached Attached -Granulation Amt Large (67-100%) Large (67-100%) Medium (34-66%) -Granulation Quality [place] -Slough/Fibrin Yes -Necrosis Amt Medium (34-66%) -Necrotic Tissue Type Adherent Slough Adherent Slough -Structure Exposed N/A N/A -Texture (Mohinedr-wound Skin Appearance) Assessed Scarring Assessed, Scarring -Moisture (Mohinder-wound Skin Appearance) Assessed No Abnormality Assessed -Color (Mohinder-wound Skin Appearance) Assessed No Abnormality Assessed -Temperature (Mohinder-wound Skin No Abnormality No Abnormality No Abnormality Appearance) (Pt Warm) (Pt Warm) (Pt Warm) -Tenderness on Palpation (Mohinder-wound No No No Skin Appearance) -Ulcer Cleansing Rinsed/ Soap and Water Wound Cleanser Irrigated with Saline -Foul Odor after Cleansing No No No -Anesthetic Used 5% Lidocaine 5% Lidocaine 5% Lidocaine Gel Gel Gel 05/21/24 08:02 Wound Center Nurse 1 4-ABDOMEN INFERIOR -Combined with other wound -Current Size (cm) - Length 0.8 -Current Size (cm) - Width 0.5 -Current Size (cm) - Depth 0.1 -Total Square Cm 0.40 -Date of Last Picture (Recall this 05/21/24 field) -Photo Taken -Epithelialization Medium 34-66% -Tunneling -Undermining/Tunneling -Circular Undermining -Exudate Amt Small -Exudate Type Serosanguineous -Wound Margin Distinct, Outline Attached -Granulation Amt Large (67-100%) -Granulation Quality Red -Slough/Fibrin -Necrosis Amt Small (1-33%) -Necrotic Tissue Type Adherent Slough -Structure Exposed -Texture (Mohinder-wound Skin Appearance) Assessed, Scarring -Moisture (Mohinder-wound Skin Appearance) Assessed -Color (Mohinder-wound Skin Appearance) Assessed -Temperature (Mohinder-wound Skin No Abnormality Appearance) (Pt Warm) -Tenderness on Palpation (Mohinder-wound No Skin Appearance) -Ulcer Cleansing Soap and Water -Foul Odor after Cleansing No -Anesthetic Used 5% Lidocaine Gel 3-ABDOMEN SUPERIOR -Combined with other wound -Current Size (cm) - Length 3 -Current Size (cm) - Width 1 -Current Size (cm) - Depth 0.1 -Total Square Cm 3 -Date of Last Picture (Recall this 05/21/24 field) -Photo Taken -Epithelialization Medium 34-66% -Tunneling -Undermining/Tunneling -Circular Undermining -Exudate Amt Small -Exudate Type Serosanguineous -Wound Margin Distinct, Outline Attached -Granulation Amt Large (67-100%) -Granulation Quality Red -Slough/Fibrin -Necrosis Amt Small (1-33%) -Necrotic Tissue Type Adherent Slough -Structure Exposed -Texture (Mohinder-wound Skin Appearance) Assessed, Scarring -Moisture (Mohinder-wound Skin Appearance) Assessed -Color (Mohinder-wound Skin Appearance) Assessed -Temperature (Mohinder-wound Skin No Abnormality Appearance) (Pt Warm) -Tenderness on Palpation (Mohinder-wound No Skin Appearance) -Ulcer Cleansing Soap and Water -Foul Odor after Cleansing No -Anesthetic Used 5% Lidocaine Gel WC - Nurse 2 - General Ulcer CM Notes Start: 04/30/24 08:21 Freq: Status: Active Protocol: Activity Type Activity Date Activity User E-sign Co-sign Detail Recorded Client Recorded Date Recorded By Document 04/30/24 08:38 GM [id number] 04/30/24 08:48 GM Document 05/07/24 09:18 GM [id number] 05/07/24 09:24 GM Document 05/14/24 08:57 GM [id number] 05/14/24 09:03 GM Document 05/21/24 08:35 DS [id number] 05/21/24 08:38 DS 04/30/24 05/07/24 05/14/24 08:38 09:18 08:57 Wound Center Nurse 2 4-ABDOMEN INFERIOR -Time 08:39 09:19 08:58 -Correct Patient Yes Yes Yes -Correct Side, Site, Position Yes Yes Yes -Correct Procedure Yes Yes Yes -Procedure Performed Yes Yes Yes -Type of Procedure Debridement Debridement Debridement -Clinical Debridement Subcutaneous Subcutaneous Subcutaneous -Tissue Removed Subcutaneous Subcutaneous Subcutaneous -Post Debridement (cm) - Length 1.9 1.2 1.1 -Post Debridement (cm) - Width 1.1 1.0 1.0 -Post Debridement (cm) - Depth 0.1 0.1 0.1 -Total Square (Post) (cm) 2.09 1.20 1.10 -Area of Debridement (cm) - Length 1.9 1.2 1.1 -Area of Debridement (cm) - Width 1.1 1.0 1.0 -Total Square (Area) (cm) 2.09 1.20 1.10 -Tunneling No No No -Undermining/Tunneling No No No -Circular Undermining No No No -Wound/Ulcer Outcome Not Healed Not Healed Not Healed -Ulcer Cleansing Rinsed/ Rinsed/ Rinsed/ Irrigated with Irrigated with Irrigated with Saline Saline Saline -Foul Odor after Cleansing No No No -Bioengineered Tissue No No No -Bleeding Controlled with Pressure Pressure Pressure -Treatment Response Procedure Procedure Procedure Tolerated Well Tolerated Well Tolerated Well -Offloading No -Debridement - Open, 1st 20sq cm No -Debridement - Subq, 1st 20sq cm No No No -Debridement - Muscle / Fascia, 1st No 20sq cm -Debridement - Bone, 1st 20sq cm No 3-ABDOMEN SUPERIOR -Time 08:41 09:19 08:58 -Correct Patient Yes Yes Yes -Correct Side, Site, Position Yes Yes Yes -Correct Procedure Yes Yes Yes -Procedure Performed Yes Yes Yes -Type of Procedure Debridement Debridement Debridement -Clinical Debridement Subcutaneous Subcutaneous Subcutaneous -Tissue Removed Subcutaneous Subcutaneous Subcutaneous -Post Debridement (cm) - Length 2.6 2.0 2.7 -Post Debridement (cm) - Width 1.7 1.5 1.1 -Post Debridement (cm) - Depth 0.1 0.1 0.1 -Total Square (Post) (cm) 4.42 3.00 2.97 -Area of Debridement (cm) - Length 2.6 2.0 2.7 -Area of Debridement (cm) - Width 1.7 1.5 1.1 -Total Square (Area) (cm) 4.42 3.00 2.97 -Tunneling No No No -Undermining/Tunneling No No No -Circular Undermining No No No -Wound/Ulcer Outcome Not Healed Not Healed Not Healed -Ulcer Cleansing Rinsed/ Rinsed/ Rinsed/ Irrigated with Irrigated with Irrigated with Saline Saline Saline -Foul Odor after Cleansing No No No -Bioengineered Tissue No No No -Bleeding Controlled with Pressure Pressure Pressure -Treatment Response Procedure Procedure Tolerated Well Tolerated Well -Offloading No -Debridement - Open, 1st 20sq cm -Debridement - Subq, 1st 20sq cm Yes Yes Yes Pain Scale: 0-10 Numeric Is Patient Pain Free? Yes Yes Yes 05/21/24 08:35 Wound Center Nurse 2 4-ABDOMEN INFERIOR -Time 08:35 -Correct Patient Yes -Correct Side, Site, Position Yes -Correct Procedure Yes -Procedure Performed Yes -Type of Procedure Debridement -Clinical Debridement Epidermis / Dermis -Tissue Removed Epidermis, Dermis -Post Debridement (cm) - Length 1.4 -Post Debridement (cm) - Width 1.0 -Post Debridement (cm) - Depth 0.1 -Total Square (Post) (cm) 1.40 -Area of Debridement (cm) - Length 1.4 -Area of Debridement (cm) - Width 1.0 -Total Square (Area) (cm) 1.40 -Tunneling No -Undermining/Tunneling No -Circular Undermining No -Wound/Ulcer Outcome Not Healed -Ulcer Cleansing -Foul Odor after Cleansing No -Bioengineered Tissue No -Bleeding Controlled with Pressure -Treatment Response Procedure Tolerated Well -Offloading -Debridement - Open, 1st 20sq cm Yes -Debridement - Subq, 1st 20sq cm -Debridement - Muscle / Fascia, 1st 20sq cm -Debridement - Bone, 1st 20sq cm 3-ABDOMEN SUPERIOR -Time 08:35 -Correct Patient Yes -Correct Side, Site, Position Yes -Correct Procedure Yes -Procedure Performed Yes -Type of Procedure Debridement -Clinical Debridement Epidermis / Dermis -Tissue Removed Epidermis, Dermis -Post Debridement (cm) - Length 3.0 -Post Debridement (cm) - Width 1.8 -Post Debridement (cm) - Depth 0.1 -Total Square (Post) (cm) 5.40 -Area of Debridement (cm) - Length 3.0 -Area of Debridement (cm) - Width 1.8 -Total Square (Area) (cm) 5.40 -Tunneling No -Undermining/Tunneling No -Circular Undermining No -Wound/Ulcer Outcome Not Healed -Ulcer Cleansing -Foul Odor after Cleansing No -Bioengineered Tissue No -Bleeding Controlled with Pressure -Treatment Response Procedure Tolerated Well -Offloading -Debridement - Open, 1st 20sq cm No -Debridement - Subq, 1st 20sq cm Pain Scale: 0-10 Numeric Is Patient Pain Free? Yes WC - Nurse 3 - General Ulcer D/C NN Start: 04/30/24 08:21 Freq: Status: Active Protocol: Activity Type Activity Date Activity User E-sign Co-sign Detail Recorded Client Recorded Date Recorded By Document 04/30/24 09:04 CP [id number] 04/30/24 09:09 CP Document 05/07/24 09:34 CP [id number] 05/07/24 09:36 CP Document 05/14/24 09:16 RB [id number] 05/14/24 09:17 RB Document 05/21/24 08:42 KW [id number] 05/21/24 08:43 KW 04/30/24 05/07/24 05/14/24 09:04 09:34 09:16 Wound Care Center Nurse 3 4-ABDOMEN INFERIOR -Ulcer Cleansing Rinsed/ Rinsed/ Irrigated with Irrigated with Saline Saline -Foul Odor after Cleansing No -Other Dressing copper dressing copper, adaptic PT OWN COPPER , adaptic , abd tape DRESSING/ABD -Primary Dressing Covered/Secured with Dry Gauze, Secured with Secured with Tape Tape 3-ABDOMEN SUPERIOR -Ulcer Cleansing Rinsed/ Rinsed/ Irrigated with Irrigated with Saline Saline -Other Dressing copper dressing copper, adaptic PT OWN COPPER , adaptic DRESSING/ABD -Primary Dressing Covered/Secured with Dry Gauze, Dry Gauze, Secured with Secured with Secured with Tape Tape Tape Treatment Response Procedure Tolerated Well Pain Scale: 0-10 Numeric Is Patient Pain Free? Yes Yes Yes WC - Visit Discharge Discharge Condition Stable Stable Stable Ambulatory Status Ambulatory Ambulatory Ambulatory Transportation Private Auto Private Auto Private Auto Medication Reconcilliation completed & No No provided to patient/care provider Clinical Summary of Care Provided Yes Yes Yes Facility Type Home Health Orders Sent Yes 05/21/24 08:42 Wound Care Center Nurse 3 4-ABDOMEN INFERIOR -Ulcer Cleansing -Foul Odor after Cleansing -Other Dressing pt own copper drsg -Primary Dressing Covered/Secured with Dry Gauze, Secured with Tape 3-ABDOMEN SUPERIOR -Ulcer Cleansing -Other Dressing copper drsg -Primary Dressing Covered/Secured with Dry Gauze, Secured with Tape Treatment Response Pain Scale: 0-10 Numeric Is Patient Pain Free? Yes WC - Visit Discharge Discharge Condition Stable Ambulatory Status Ambulatory Transportation Private Auto Medication Reconcilliation completed & No provided to patient/care provider Clinical Summary of Care Provided Yes Facility Type Orders Sent Additional Wound Wound debrided: Abdomen (inferior) Laterality: Not Applicable (Midline) Type of Debridement: Selective debridement Anesthesia Used: 5% Lidocaine Gel Depth: Down to and including healthy tissue Percentage of wound debrided: 100 Instrument Used: 5mm curette Tissue Removed: Bioburden and devitalized tissue Severity: Fat Layer Exposed Amount of bleeding with debridement: Mild Bleeding Controlled with: Compression and gauze Patient tolerated procedure: Patient tolerated procedure well Charges/Coding Wound Center CF Procedures [id number]: [id number] RMVL DEVITAL TIS 20 CM/< Multi Select Codes Visit Charges Office Visit/Consults: [id number] OV L4 New 45 min Wound Center CF Procedures [id number]: [id number] RMVL DEVITAL TIS 20 CM/< Assessment/Plan Assessment/Plan (1) Non-healing surgical wound: CODE(S): T81.89XA - Other complications of procedures, not elsewhere classified, initial encounter QUALIFIERS: Encounter type: initial encounter Qualified Code(s): T81.89XA - Other complications of procedures, not elsewhere classified, initial encounter (2) Type 2 diabetes mellitus: CODE(S): E11.9 - Type 2 diabetes mellitus without complications QUALIFIERS: Diabetes mellitus mcc insulin use: without mcc use Diabetes mellitus complication status: with skin complications Diabetes mellitus complication detail: with other skin complication Qualified Code(s): E11.628 - Type 2 diabetes mellitus with other skin complications (3) History of colostomy reversal: CODE(S): Z98.890 - Other specified postprocedural states (4) Surgical wound breakdown: CODE(S): T81.31XA - Disruption of external operation (surgical) wound, not elsewhere classified, initial encounter QUALIFIERS: Encounter type: initial encounter Qualified Code(s): T81.31XA - Disruption of external operation (surgical) wound, not elsewhere classified, initial encounter PLAN: Plan A debridement was performed today, and was well-tolerated. We are to continue the copper dressings, which are to be changed every other day. The patient has been instructed in the appropriate means of application and removal. We will continue Vaseline to mohinder-wound area. The patient has been instructed to optimize his diabetes control and dietary protein intake. He is working with his primary care physician to adjust his insulin dosage. The patient is to follow-up in 1 week with his regular Wound Center provider, Dr. Puga. Total time: 45 minutes
== END 2024-05-25 23:59 | disposition home or self-care (01) ==
LOC: WC 08:00
PROVIDERS: PCP Internal Medicine; Referring Provider Internal Medicine; Visit Provider Internal Medicine
DX: T81.31XA Disruption of external operation (surgical) wound, not elsewhere classified, initial encounter (principal); E11.628 Type 2 diabetes mellitus with other skin complications; I10 Essential (primary) hypertension; Z86.16 Personal history of COVID-19; Z98.890 Other specified postprocedural states; T81.89XD Other complications of procedures, not elsewhere classified, subsequent encounter
CPT/HCPCS: 11042; 87070; 87075; 87077; 87186; 87205; 97597

== ENCOUNTER 2024-06-18 08:00 | Outpatient (RCR) | payer OTHER, SELFPAY ==
[2024-05-26 00:39] VITALS: BP 143/82; PULSE 81; RESP 16; TEMP 35.9; BMI 36.9
[2024-05-28 08:25] VITALS: BP 167/81; PULSE 81; RESP 18; TEMP 36.4; BMI 36.9
--- NOTE | 2024-05-28 08:51 | PCM.WC.PN ---
History of Present Illness Date of Service: 05/28/24 Chief Complaint: Non healing surgical wound History of Wound: Mr. Duque is a 63 yo being managed for surgical wound break down. Has been seen here since September 2023, 1 month after colostomy reversal. Progress of Wound: No new concerns at this time. Doing dressing changes as recommended. Denies increased pain or drainage. Objective Data Objective Data Vital Signs: Vital Signs Temp Pulse Resp BP 97.5 F L 81 18 167/81 H 05/28/24 08:25 05/28/24 08:25 05/28/24 08:25 05/28/24 08:25 Weight: 250 lb Body Mass Index (BMI) 36.9 Charges/Coding Procedures Integumentary 111xxx-113xx: 60198 Hannah subq tissue 20 sq cm/< Physical Exam Const alert, oriented x3 and no apparent distress General Appearance: cooperative, comfortable and well kempt HEENT normocephalic, head/scalp atraumatic and hearing grossly normal bilaterally Eyes EOMs intact bilaterally General Eye: normal appearance of both eyes Neck full ROM and supple General: normal visual inspection Resp normal respiratory effort Effort and Inspection: able to speak in complete sentences GI non-tender and non-distended Skin Wounds: wounds noted size Size: See clinical note, bed granulating well, margins well approximated, no odor, open and surrounding erythema Neuro oriented x3, CN's II-XII intact bilaterally, moves all extremities and no focal motor deficits Psych mental status grossly normal, thought process normal, cooperative and affect normal Debridement Note Debridement Note Wound debrided: Abdomen (superior) Type of Debridement: Excisional debridement Anesthesia Used: 5% Lidocaine Gel Depth: Down to and including healthy tissue and in the subcutaneous layer Percentage of wound debrided: 100 Instrument Used: 5mm curette Tissue Removed: Slough and devitalized tissue Severity: Fat Layer Exposed Amount of bleeding with debridement: Mild Bleeding Controlled with: Pressure Patient tolerated procedure: Patient tolerated procedure well Post-Debridement Measurements and Additional Note: Post-Debridement Measurements/Treatment WC - Nurse 1 - General Ulcer Assessment Start: 05/28/24 08:25 Freq: Status: Active Protocol: JUSTIN Activity Type Activity Date Activity User E-sign Co-sign Detail Recorded Client Recorded Date Recorded By Document 05/28/24 08:25 RB [id number] 05/28/24 08:28 RB 05/28/24 08:25 - Today's Visit Information Type of service Follow-up Visit (Physician/[facility] [employer] ) Arrival Mode Ambulatory Transfer Assistance None Patient Identification Verified (Name & Yes ) Patient Requires Transmission-Based No Precautions Height and Weight Body Mass Index (BMI) 36.9 BMI Classification Obese Vital Signs Temperature (97.8 F-99.1 F) 97.5 F L Temperature Source Temporal Pulse Rate (60-100) 81 Pulse Location Monitor Respiratory Rate (12-18) 18 Respiratory rate source Observation Blood Pressure (90/60-120/80) 167/81 H Blood Pressure Mean (mm Hg) 109 Source Monitor Position Semi-Fowlers Blood Pressure Location Left Arm History Since Last Visit- (Skip if this is Patient's initial visit) Have you changed medications since your No last visit? Any new allergies or adverse reactions No Had a fall/change in ADL's that may No increase risk of falls Signs or symptoms of abuse and/or No neglect since last visit Have you been in the hospital since your No last visit? Has dressing in place as prescribed Yes Has compression in place as prescribed N/A Has offloadiing in place as prescribed N/A Experienced any changes in pain level or No management Pain Scale: 0-10 Numeric Is Patient Pain Free? Yes - Nurse 1 - General Ulcer Measurement Start: 05/28/24 08:25 Freq: Status: Active Protocol: Activity Type Activity Date Activity User E-sign Co-sign Detail Recorded Client Recorded Date Recorded By Document 05/28/24 08:25 [id number] 05/28/24 08:28 RB 05/28/24 08:25 Wound Center Nurse 1 4-ABDOMEN INFERIOR -Combined with other wound No -Current Size (cm) - Length 1 -Current Size (cm) - Width 1 -Current Size (cm) - Depth 0.1 -Total Square Cm 1 -Photo Taken Yes -Tunneling No -Undermining/Tunneling No -Circular Undermining No -Exudate Amt Medium -Exudate Type Serosanguineous -Wound Margin Distinct, Outline Attached -Granulation Amt Medium (34-66%) -Granulation Quality [place] -Slough/Fibrin Yes -Necrosis Amt Medium (34-66%) -Necrotic Tissue Type Adherent Slough -Structure Exposed N/A -Texture (Bruna-wound Skin Appearance) Assessed, Scarring -Moisture (Bruna-wound Skin Appearance) Assessed -Color (Bruna-wound Skin Appearance) Assessed -Temperature (Bruna-wound Skin No Abnormality Appearance) (Pt Warm) -Tenderness on Palpation (Bruna-wound No Skin Appearance) -Ulcer Cleansing Wound Cleanser -Foul Odor after Cleansing No -Anesthetic Used 5% Lidocaine Gel 3-ABDOMEN SUPERIOR -Combined with other wound No -Current Size (cm) - Length 2 -Current Size (cm) - Width 1.8 -Current Size (cm) - Depth 0.1 -Total Square Cm 3.6 -Photo Taken Yes -Tunneling No -Undermining/Tunneling No -Circular Undermining No -Exudate Amt Medium -Exudate Type Serosanguineous -Wound Margin Distinct, Outline Attached -Granulation Amt Medium (34-66%) -Granulation Quality [place] -Slough/Fibrin Yes -Necrosis Amt Medium (34-66%) -Necrotic Tissue Type Adherent Slough -Structure Exposed N/A -Texture (Bruna-wound Skin Appearance) Assessed, Scarring -Moisture (Bruna-wound Skin Appearance) Assessed -Color (Bruna-wound Skin Appearance) Assessed -Temperature (Bruna-wound Skin No Abnormality Appearance) (Pt Warm) -Tenderness on Palpation (Bruna-wound No Skin Appearance) -Ulcer Cleansing Wound Cleanser -Foul Odor after Cleansing No -Anesthetic Used 5% Lidocaine Gel WC - Nurse 2 - General Ulcer CM Notes Start: 05/28/24 08:25 Freq: Status: Active Protocol: Activity Type Activity Date Activity User E-sign Co-sign Detail Recorded Client Recorded Date Recorded By Document 05/28/24 08:40 GM [id number] 05/28/24 08:45 GM 05/28/24 08:40 Wound Center Nurse 2 4-ABDOMEN INFERIOR -Time 08:40 -Correct Patient Yes -Correct Side, Site, Position Yes -Correct Procedure Yes -Procedure Performed Yes -Type of Procedure Debridement -Clinical Debridement Subcutaneous -Tissue Removed Subcutaneous -Post Debridement (cm) - Length 0.9 -Post Debridement (cm) - Width 0.8 -Post Debridement (cm) - Depth 0.1 -Total Square (Post) (cm) 0.72 -Area of Debridement (cm) - Length 0.9 -Area of Debridement (cm) - Width 0.8 -Total Square (Area) (cm) 0.72 -Tunneling No -Undermining/Tunneling No -Circular Undermining No -Wound/Ulcer Outcome Not Healed -Ulcer Cleansing Rinsed/ Irrigated with Saline -Foul Odor after Cleansing No -Bioengineered Tissue No -Bleeding Controlled with Pressure -Treatment Response Procedure Tolerated Well -Offloading No -Debridement - Subq, 1st 20sq cm No 3-ABDOMEN SUPERIOR -Time 08:41 -Correct Patient Yes -Correct Side, Site, Position Yes -Correct Procedure Yes -Procedure Performed Yes -Type of Procedure Debridement -Clinical Debridement Subcutaneous -Tissue Removed Subcutaneous -Post Debridement (cm) - Length 2.0 -Post Debridement (cm) - Width 0.8 -Post Debridement (cm) - Depth 0.1 -Total Square (Post) (cm) 1.60 -Area of Debridement (cm) - Length 2.0 -Area of Debridement (cm) - Width 0.8 -Total Square (Area) (cm) 1.60 -Tunneling No -Undermining/Tunneling No -Circular Undermining No -Wound/Ulcer Outcome Not Healed -Ulcer Cleansing Rinsed/ Irrigated with Saline -Foul Odor after Cleansing No -Bioengineered Tissue No -Bleeding Controlled with Pressure -Treatment Response Procedure Tolerated Well -Debridement - Subq, 1st 20sq cm Yes Pain Scale: 0-10 Numeric Is Patient Pain Free? Yes Additional Wound Wound debrided: Abdomen (inferior) Type of Debridement: Excisional debridement Anesthesia Used: 5% Lidocaine Gel Depth: Down to and including healthy tissue and in the subcutaneous layer Percentage of wound debrided: 100 Instrument Used: 3mm curette Tissue Removed: Slough and devitalized tissue Severity: Fat Layer Exposed Amount of bleeding with debridement: Mild Bleeding Controlled with: Pressure Patient tolerated procedure: Patient tolerated procedure well Assessment/Plan Assessment/Plan (1) Non-healing surgical wound: CODE(S): T81.89XA - Other complications of procedures, not elsewhere classified, initial encounter QUALIFIERS: Encounter type: initial encounter Qualified Code(s): T81.89XA - Other complications of procedures, not elsewhere classified, initial encounter (2) Type 2 diabetes mellitus: CODE(S): E11.9 - Type 2 diabetes mellitus without complications QUALIFIERS: Diabetes mellitus assisted insulin use: without assisted use Diabetes mellitus complication status: with skin complications Diabetes mellitus complication detail: with other skin complication Qualified Code(s): E11.628 - Type 2 diabetes mellitus with other skin complications (3) History of colostomy reversal: CODE(S): Z98.890 - Other specified postprocedural states (4) Surgical wound breakdown: CODE(S): T81.31XA - Disruption of external operation (surgical) wound, not elsewhere classified, initial encounter QUALIFIERS: Encounter type: initial encounter Qualified Code(s): T81.31XA - Disruption of external operation (surgical) wound, not elsewhere classified, initial encounter PLAN: Plan Debridement done as documented above, procedure was well-tolerated. Improving, no new concerns reported. Continue copper dressing and change every other day. [place] side down and moisten adequately. Moisten adequately to take off as well. Cover with Adaptic. Continue Vaseline to BRUNA wound/ulcer area. Optimal diabetes control and dietary protein intake. Optimal diabetes control recommended. Continue other chronic wound care management. His questions were answered and he was advised to let us know if he has any further questions or concerns. Follow-up in 2 weeks per patient preference. This note was generated with [employer] dictation software. It may contain incorrect words, spelling, and punctuation that were not noted in checking the note before signing.
--- NOTE | 2024-05-29 10:33 | WC ---
PHOTO 05/28/24 ABD SUP
[2024-06-11 08:28] VITALS: BP 157/97; PULSE 81; RESP 16; TEMP 36.6; BMI 36.9
--- NOTE | 2024-06-11 11:39 | PN.PCM_ITS ---
History of Present Illness Date of Service: 06/11/24 Chief Complaint: Non healing surgical wound History of Wound: Mr. Duque is a 63 yo being managed for surgical wound break down. Has been seen here since September 2023, 1 month after colostomy reversal. Progress of Wound: No new concerns reported today. For the lower abdominal wound, he states that the dressing came off easily. Scabbing noted but none healing underneath this. He denies pain, drainage or feeling of unwell. Blood glucose readings are still quite elevated. He states that he has been taking his medications/insulin as recommended by his PCP. He states that he plans to reach out to his PCP for medication adjustment. Objective Data Objective Data Vital Signs: Vital Signs Temp Pulse Resp BP 97.9 F 81 16 157/97 H 06/11/24 08:28 06/11/24 08:28 06/11/24 08:28 06/11/24 08:28 Weight: 250 lb Body Mass Index (BMI) 36.9 Charges/Coding Procedures Integumentary 111xxx-113xx: 16887 Hannah subq tissue 20 sq cm/< Physical Exam Const alert, oriented x3 and no apparent distress General Appearance: cooperative, comfortable and well kempt HEENT normocephalic, head/scalp atraumatic and hearing grossly normal bilaterally Eyes EOMs intact bilaterally General Eye: normal appearance of both eyes Neck full ROM and supple General: normal visual inspection Resp normal respiratory effort Effort and Inspection: able to speak in complete sentences GI soft to palpation and non-tender Skin Wounds: wounds noted size Size: See clinical note, bed shiny and with slough, margins well approximated, no odor, open and surrounding erythema Neuro oriented x3, CN's II-XII intact bilaterally, moves all extremities and no focal motor deficits Psych mental status grossly normal, thought process normal, cooperative and affect normal Debridement Note Debridement Note Wound debrided: Abdomen (superior) Type of Debridement: Excisional debridement Anesthesia Used: 5% Lidocaine Gel Depth: Down to and including healthy tissue and in the subcutaneous layer Percentage of wound debrided: 100 Instrument Used: 5mm curette Tissue Removed: Slough and devitalized tissue Severity: Fat Layer Exposed Amount of bleeding with debridement: Mild Bleeding Controlled with: Pressure Patient tolerated procedure: Patient tolerated procedure well Post-Debridement Measurements and Additional Note: Post-Debridement Measurements/Treatment WC - Nurse 1 - General Ulcer Assessment Start: 05/28/24 08:25 Freq: Status: Active Protocol: JUSTIN Activity Type Activity Date Activity User E-sign Co-sign Detail Recorded Client Recorded Date Recorded By Document 05/28/24 08:25 RB [id number] 05/28/24 08:28 RB Document 06/11/24 08:28 CP [id number] 06/11/24 08:31 CP 05/28/24 06/11/24 08:25 08:28 - Today's Visit Information Type of service Follow-up Visit Follow-up Visit (Physician/[employer] (Physician/[employer] ) ) Arrival Mode Ambulatory Ambulatory Transfer Assistance None None Patient Identification Verified (Name & Yes Yes ) Patient Requires Transmission-Based No Precautions Safety Precautions NA Height and Weight Body Mass Index (BMI) 36.9 36.9 BMI Classification Obese Obese Vital Signs Temperature (97.8 F-99.1 F) 97.5 F L 97.9 F Temperature Source Temporal Temporal Pulse Rate (60-100) 81 81 Pulse Location Monitor Monitor Respiratory Rate (12-18) 18 16 Respiratory rate source Observation Observation Blood Pressure (90/60-120/80) 167/81 H 157/97 H Blood Pressure Mean (mm Hg) 109 117 Source Monitor Monitor Position Semi-Fowlers Semi-Fowlers Blood Pressure Location Left Arm Right Arm History Since Last Visit- (Skip if this is Patient's initial visit) Have you changed medications since your No No last visit? Any new allergies or adverse reactions No No Had a fall/change in ADL's that may No increase risk of falls Signs or symptoms of abuse and/or No No neglect since last visit Have you been in the hospital since your No No last visit? Has dressing in place as prescribed Yes Yes Has compression in place as prescribed N/A N/A Has offloadiing in place as prescribed N/A N/A Experienced any changes in pain level or No No management Pain Scale: 0-10 Numeric Is Patient Pain Free? Yes Yes - Nurse 1 - General Ulcer Measurement Start: 05/28/24 08:25 Freq: Status: Active Protocol: Activity Type Activity Date Activity User E-sign Co-sign Detail Recorded Client Recorded Date Recorded By Document 05/28/24 08:25 RB [id number] 05/28/24 08:28 RB Document 06/11/24 08:28 CP [id number] 06/11/24 08:31 CP 05/28/24 06/11/24 08:25 08:28 Wound Center Nurse 1 4-ABDOMEN INFERIOR -Combined with other wound No -Current Size (cm) - Length 1 0.1 -Current Size (cm) - Width 1 0.1 -Current Size (cm) - Depth 0.1 0.1 -Total Square Cm 1 0.01 -Photo Taken Yes -Epithelialization Large 67-100% -Tunneling No -Undermining/Tunneling No -Circular Undermining No -Exudate Amt Medium None Present -Exudate Type Serosanguineous -Wound Margin Distinct, Outline Attached -Granulation Amt Medium (34-66%) -Granulation Quality [place] -Slough/Fibrin Yes -Necrosis Amt Medium (34-66%) -Necrotic Tissue Type Adherent Slough -Structure Exposed N/A N/A -Texture (Bruna-wound Skin Appearance) Assessed, No Abnormality Scarring -Moisture (Bruna-wound Skin Appearance) Assessed No Abnormality -Color (Bruna-wound Skin Appearance) Assessed No Abnormality -Temperature (Bruna-wound Skin No Abnormality No Abnormality Appearance) (Pt Warm) (Pt Warm) -Tenderness on Palpation (Bruna-wound No No Skin Appearance) -Ulcer Cleansing Wound Cleanser Rinsed/ Irrigated with Saline -Foul Odor after Cleansing No No -Anesthetic Used 5% Lidocaine 5% Lidocaine Gel Gel 3-ABDOMEN SUPERIOR -Combined with other wound No -Current Size (cm) - Length 2 2.2 -Current Size (cm) - Width 1.8 1 -Current Size (cm) - Depth 0.1 0.1 -Total Square Cm 3.6 2.2 -Photo Taken Yes -Epithelialization Large 67-100% -Tunneling No -Undermining/Tunneling No -Circular Undermining No -Exudate Amt Medium None Present -Exudate Type Serosanguineous -Wound Margin Distinct, Outline Attached -Granulation Amt Medium (34-66%) Large (67-100%) -Granulation Quality [place] -Slough/Fibrin Yes No -Necrosis Amt Medium (34-66%) -Necrotic Tissue Type Adherent Slough -Structure Exposed N/A N/A -Texture (Bruna-wound Skin Appearance) Assessed, No Abnormality Scarring -Moisture (Bruna-wound Skin Appearance) Assessed No Abnormality -Color (Bruna-wound Skin Appearance) Assessed No Abnormality -Temperature (Bruna-wound Skin No Abnormality No Abnormality Appearance) (Pt Warm) (Pt Warm) -Tenderness on Palpation (Bruna-wound No No Skin Appearance) -Ulcer Cleansing Wound Cleanser Rinsed/ Irrigated with Saline -Foul Odor after Cleansing No -Anesthetic Used 5% Lidocaine 5% Lidocaine Gel Gel WC - Nurse 2 - General Ulcer CM Notes Start: 05/28/24 08:25 Freq: Status: Active Protocol: Activity Type Activity Date Activity User E-sign Co-sign Detail Recorded Client Recorded Date Recorded By Document 05/28/24 08:40 GM [id number] 05/28/24 08:45 GM Document 06/11/24 08:45 GM [id number] 06/11/24 08:57 GM 05/28/24 06/11/24 08:40 08:45 Wound Center Nurse 2 4-ABDOMEN INFERIOR -Time 08:40 08:45 -Correct Patient Yes Yes -Correct Side, Site, Position Yes Yes -Correct Procedure Yes Yes -Procedure Performed Yes Yes -Type of Procedure Debridement Debridement -Clinical Debridement Subcutaneous Subcutaneous -Tissue Removed Subcutaneous Subcutaneous -Post Debridement (cm) - Length 0.9 2.2 -Post Debridement (cm) - Width 0.8 1.0 -Post Debridement (cm) - Depth 0.1 0.1 -Total Square (Post) (cm) 0.72 2.20 -Area of Debridement (cm) - Length 0.9 2.2 -Area of Debridement (cm) - Width 0.8 1.0 -Total Square (Area) (cm) 0.72 2.20 -Tunneling No No -Undermining/Tunneling No No -Circular Undermining No No -Wound/Ulcer Outcome Not Healed Not Healed -Ulcer Cleansing Rinsed/ Rinsed/ Irrigated with Irrigated with Saline Saline -Foul Odor after Cleansing No No -Bioengineered Tissue No No -Bleeding Controlled with Pressure Pressure -Treatment Response Procedure Procedure Tolerated Well Tolerated Well -Offloading No No -Debridement - Subq, 1st 20sq cm No Yes 3-ABDOMEN SUPERIOR -Time 08:41 08:46 -Correct Patient Yes Yes -Correct Side, Site, Position Yes Yes -Correct Procedure Yes Yes -Procedure Performed Yes Yes -Type of Procedure Debridement Debridement -Clinical Debridement Subcutaneous Subcutaneous -Tissue Removed Subcutaneous Subcutaneous -Post Debridement (cm) - Length 2.0 3.0 -Post Debridement (cm) - Width 0.8 1.5 -Post Debridement (cm) - Depth 0.1 0.1 -Total Square (Post) (cm) 1.60 4.50 -Area of Debridement (cm) - Length 2.0 3.0 -Area of Debridement (cm) - Width 0.8 1.5 -Total Square (Area) (cm) 1.60 4.50 -Tunneling No No -Undermining/Tunneling No No -Circular Undermining No No -Wound/Ulcer Outcome Not Healed Not Healed -Ulcer Cleansing Rinsed/ Rinsed/ Irrigated with Irrigated with Saline Saline -Foul Odor after Cleansing No No -Bioengineered Tissue No No -Bleeding Controlled with Pressure Pressure -Treatment Response Procedure Procedure Tolerated Well Tolerated Well -Debridement - Subq, 1st 20sq cm Yes No Pain Scale: 0-10 Numeric Is Patient Pain Free? Yes Yes - Nurse 3 - General Ulcer D/C NN Start: 05/28/24 08:25 Freq: Status: Active Protocol: Activity Type Activity Date Activity User E-sign Co-sign Detail Recorded Client Recorded Date Recorded By Document 05/28/24 08:59 [id number] 05/28/24 09:01 RB Document 06/11/24 09:11 [id number] 06/11/24 09:12 05/28/24 06/11/24 08:59 09:11 Wound Care Center Nurse 3 4-ABDOMEN INFERIOR -Ulcer Cleansing Rinsed/ Not Cleansed Irrigated with Saline -Foul Odor after Cleansing No -Primary Dressing Applied NonAdherent Collagen Powder Contact Layer ,NonAdherent Contact Layer -Other Dressing copper dressing /ABD -Primary Dressing Covered/Secured with Secured with Secured with Tape Tape,Other -Other Covering abd pad -Collagen Powder 1 -Wound Comment(s) vaseline around periulcer 3-ABDOMEN SUPERIOR -Ulcer Cleansing Rinsed/ Not Cleansed Irrigated with Saline -Foul Odor after Cleansing No -Primary Dressing Applied NonAdherent Collagen Powder Contact Layer ,NonAdherent Contact Layer -Other Dressing copper dressing / ABD -Primary Dressing Covered/Secured with Secured with Dry Gauze, Tape Secured with Tape -Collagen Powder 1 -Wound Comment(s) vaseline around periulcer Other/Comment vaseline Treatment Response Procedure Tolerated Well Pain Scale: 0-10 Numeric Is Patient Pain Free? Yes Yes - Visit Discharge Discharge Condition Stable Stable Ambulatory Status Ambulatory Ambulatory Transportation Private Auto Private Auto Medication Reconcilliation completed & No provided to patient/care provider Clinical Summary of Care Provided Yes Yes Additional Wound Wound debrided: Abdomen (inferior) Type of Debridement: Excisional debridement Anesthesia Used: 5% Lidocaine Gel Depth: Down to and including healthy tissue and in the subcutaneous layer Percentage of wound debrided: 100 Instrument Used: 3mm curette Tissue Removed: Slough and devitalized tissue Severity: Fat Layer Exposed Amount of bleeding with debridement: Mild Bleeding Controlled with: Pressure Patient tolerated procedure: Patient tolerated procedure well Assessment/Plan Assessment/Plan (1) Non-healing surgical wound: CODE(S): T81.89XA - Other complications of procedures, not elsewhere classified, initial encounter QUALIFIERS: Encounter type: initial encounter Qualified Code(s): T81.89XA - Other complications of procedures, not elsewhere classified, initial encounter (2) Type 2 diabetes mellitus: CODE(S): E11.9 - Type 2 diabetes mellitus without complications QUALIFIERS: Diabetes mellitus [facility] insulin use: without [facility] use Diabetes mellitus complication status: with skin complications Diabetes mellitus complication detail: with other skin complication Qualified Code(s): E11.628 - Type 2 diabetes mellitus with other skin complications (3) History of colostomy reversal: CODE(S): Z98.890 - Other specified postprocedural states (4) Surgical wound breakdown: CODE(S): T81.31XA - Disruption of external operation (surgical) wound, not elsewhere classified, initial encounter QUALIFIERS: Encounter type: initial encounter Qualified Code(s): T81.31XA - Disruption of external operation (surgical) wound, not elsewhere classified, initial encounter PLAN: Plan Debridement done as documented above, procedure was well-tolerated. Some worsening noted since his last visit. No significant clinical concern for infection at this time, no cultures taken. Had made remarkable improvement on initial switch to the couple dressing however, over weeks today appears to be stalling. Insurance is not covering a skin substitute. Worsening noted prior switches to Aquacel and Promogran. Will try collagen powder and continue copper dressing. Change every other day. [place] side down and moisten adequately. Moisten adequately to take off as well. Cover with Adaptic. Continue Vaseline to BRUNA wound/ulcer area. Optimal diabetes control and dietary protein intake. Very lengthy discussion had with patient and his on the need for optimal diabetes control, his numbers are still quite high. Fasting this morning said to be 170. He states that he has had readings occasionally higher. Advised that he continue to correspond with his PCP for medication adjustment. Continue other chronic wound care management. His questions were answered and he was advised to let us know if he has any further questions or concerns. Follow-up in 1 week. This note was generated with [employer] dictation software. It may contain incorrect words, spelling, and punctuation that were not noted in checking the note before signing.
--- NOTE | 2024-06-12 10:19 | WC ---
PHOTO 06/11/24 INF ABD
--- NOTE | 2024-06-12 10:20 | WC ---
PHOTO 06/11/24 SUP ABD
[2024-06-18 08:11] VITALS: BP 174/88; PULSE 81; RESP 18; TEMP 35.9; BMI 36.9
[2024-06-18 09:37] LABS: Hematocrit 41.6 % (40-54); Hemoglobin 13.8 g/dL (13.0-16.5); Mean Corp Hgb Conc 33.2 g/dL (32-36); Mean Corpuscular Hgb 27.4 pg (27.0-32.0); Mean Corpuscular Volume 82.7 fL (80-94); Mean Platelet Vol. 9.6 fl (6.2-12.0); Platelet Count 250 K/mm3 (150-450); RBC Distribution Width CV 13.5 % (11.6-14.6); RBC Distribution Width SD 39.9 fl (35.1-43.9); Red Blood Count 5.03 M/mm3 (4.6-6.2); White Blood Count 8.6 K/mm3 (4.4-11.0)
[2024-06-18 10:20] LABS: Hemoglobin A1c 8.5 % (<=5.6)
[2024-06-18 10:21] LABS: ALB/GLOB Ratio 1.2 RATIO (0.9-2.4); AST(SGOT) 23 U/L (<=37); Alanine Aminotransfer ALT/SGPT 27 U/L (<=46); Albumin, Serum 4.1 g/dL (3.4-4.8); Alkaline Phosphatase 86 U/L (40-129); Anion Gap 13 (5-15); BUN 16 mg/dL (4-19); BUN/Creat Ratio 21.7 RATIO (10-20); Calcium,Total 9.1 mg/dL (7.6-11.0); Carbon Dioxide 23.2 mmol/L (21.0-32.0); Chloride 99 mmol/L (98-108); Creatinine, Serum 0.73 mg/dL (0.70-1.20); EST Glomerular Filtration Rate 103 (>60); Estimated Creatinine Clearance 130.27 ml/min (50-250); Globulin 3.4 g/dL (2.2-4.2); Glucose 257 mg/dL (70-99); Potassium 3.9 mmol/L (3.3-5.1); Protein, Total 7.5 g/dL (5.9-8.4); Sodium Level 135 mmol/L (133-145); Total Bilirubin 0.27 mg/dL (0.00-1.30)
--- NOTE | 2024-06-18 16:37 | HP.PCM_ITS ---
History of Present Illness Date of Service: 06/18/24 Chief Complaint: Non healing surgical wound History of Wound: This is a 63-year-old male who underwent partial colectomy and diverting colostomy in July 2022 as a result of perforated diverticulitis. One year later, in July 2023, the patient underwent colostomy reversal, and reestablishment of colonic continuity. The patient's colostomy site has healed in satisfactory fashion. However, his midline surgical incision has suffered from a dehiscence, for which he has been treated at the [facility]. Previous treatment has included the use of a wound VAC. The patient is known to be diabetic. He reports a good appetite and adequate protein intake. [facility] Medical History Hypertension Surgical wound dehiscence Surgical wound breakdown Type 2 diabetes mellitus [address]ostomy in place Non-healing surgical wound Debility Pneumonia due to COVID-19 virus Acute respiratory failure with hypoxia Acute kidney injury Left inguinal hernia Hypertension Diverticulosis Diabetes mellitus Asthma Perforation of sigmoid colon due to diverticulitis Home Medications ?Medication ?Instructions ?Recorded ?Last Taken ?Type acetaminophen 500 mg tablet 500 mg PO Q6H PRN pain (sc shaheen 09/12/22 Unknown History score 1-3) insulin NPH isoph U-100 human 100 6 unit subcut BID Di abetes 09/12/22 09/12/22 08:35 History unit/mL (3 mL) subcutaneous pen (Humulin N NPH U-100 Insulin KwikPen) losartan 100 mg tablet (Cozaar) 100 mg PO DAILY Blood pressure 09/12/22 09/12/22 12:30 History pantoprazole 40 mg tablet,delayed 40 mg PO BID GERD Unknown History release polyethylene glycol 3350 17 gram 17 g PO DAILY Constip ation 09/12/22 09/12/22 08:35 History oral powder packet ascorbic acid (vitamin C) 500 mg 500 mg PO BREAKFAST 3 0 days #30 09/25/22 Unknown Rx tablet tabs polysaccharide iron complex 150 mg 150 mg PO DAILY 30 days #30 caps 09/25/22 Unknown Rx iron capsule (Ferrex) IC CANDESARTA 02/21/23 Unknown History candesartan 32 mg tablet (Atacand) 32 mg PO DAILY 03/20 Unknown History hydrochlorothiazide 25 mg tablet 25 mg PO DAILY Unknown History sitagliptin phosphate 50 1 tab PO BID 03/28/23 Unknow n History mg-metformin 500 mg tablet () amlodipine 5 mg tablet 5 mg PO DAILY 05/09/23 Unkno wn History metoprolol succinate 50 mg capsule 50 mg PO DAILY 06/25 08/18 Unknown History sprinkle, ext. release 24 hr cefdinir 300 mg capsule 300 mg PO BID #20 caps 10/25 Unknown Rx Toujeo SoloStar U-300 Insulin 05/07/24 Unknown Histor y Allergy/AdvReac Type Severity Reaction Status Date / Time aspirin Allergy Intermediate Hives Verified 10/04/22 08:20 Poultry Allergy Unknown Other Verified 10/04/22 08:20 iodine Allergy Shortness Verified 10/04/22 08:20 of breath Family History Mother Breast cancer Father Myocardial infarction Hypertension Colon cancer Grandmother Diabetes Grandfather Diabetes Surgical History History of colostomy History of partial colectomy History of colostomy reversal S/P colectomy History of left inguinal hernia repair History of tooth extraction History of excision of dermoid cyst Social History household members: spouse Smoking Status: Never smoker alcohol intake: never substance use type: does not use Vital Signs Vital Signs Vital Signs: 06/18/24 08:11 Temperature 96.6 F L Temperature Source Temporal Pulse Rate 81 Respiratory Rate 18 Blood Pressure 174/88 H Blood Pressure Mean 116 Blood Pressure Source Monitor Blood Pressure Position Semi-Fowlers Blood Pressure Location Left Arm Weight Weight: 250 lb Body Mass Index (BMI) 36.9 Physical Exam Const alert, oriented x3 and no apparent distress Constitutional Narrative: The patient's BMI is 36.9. General Appearance: cooperative, comfortable and well developed Orientation / Consciousness: awake Exam Limitations: no limitations HEENT normocephalic, head/scalp atraumatic, hearing grossly normal bilaterally and external ears normal Head and Scalp: normal to inspection, normocephalic and atraumatic Face and Sinus: normal facial exam Nose: external nose normal External Ear: external ears normal Eyes EOMs intact bilaterally General Eye: normal appearance of both eyes Neck full ROM Resp normal respiratory effort, normal air movement, no retractions and no use of accessory muscles Effort and Inspection: able to speak in complete sentences GI soft to palpation and non-tender Skin Wounds: wounds noted size Size: See clinical note, bed shiny and with slough, margins well approximated, no odor, open and surrounding erythema Wound Narrative: A well-healed colostomy site is noted on the left side of the patient's abdomen. A vertical midline incision is noted, with dehiscence of the incision at the superior and inferior poles. Each of the 2 dehiscence sites extends through all layers of the dermis and into the subcutaneous tissues. The base of each wound demonstrates pink, healthy granulation tissue. Dimensions of each are documented elsewhere. Wound margins are well beveled. There is no undermining or tunneling. However, the wounds are surrounded by a large area of erythema and induration. Neuro oriented x3, CN's II-XII intact bilaterally, moves all extremities and no focal motor deficits Sensorium / Orientation: awake, alert, oriented to person, oriented to place and oriented to time Psych mental status grossly normal, thought process normal, cooperative and affect normal Debridement Note Debridement Note Wound debrided: Surgical incisional wound dehiscence, superior and inferior Laterality: Not Applicable (Midline) Type of Debridement: Excisional debridement Anesthesia Used: 5% Lidocaine Gel Depth: Down to and including healthy tissue and in the subcutaneous layer Percentage of wound debrided: 100 Instrument Used: 5mm curette Tissue Removed: Bioburden and devitalized tissue Severity: Fat Layer Exposed Amount of bleeding with debridement: Mild Bleeding Controlled with: Pressure Patient tolerated procedure: Patient tolerated procedure well Post-Debridement Measurements and Additional Note: Post-Debridement Measurements/Treatment WC - Nurse 1 - General Ulcer Assessment Start: 05/28/24 08:25 Freq: Status: Active Protocol: [email or web address] Activity Type Activity Date Activity User E-sign Co-sign Detail Recorded Client Recorded Date Recorded By Document 05/28/24 08:25 RB [id number] 05/28/24 08:28 RB Document 06/11/24 08:28 CP [id number] 06/11/24 08:31 CP Document 06/18/24 08:11 RB [id number] 06/18/24 08:14 RB 05/28/24 06/11/24 06/18/24 08:25 08:28 08:11 - Today's Visit Information Type of service Follow-up Visit Follow-up Visit Follow-up Visit (Physician/ASSISTANT BRANCH MANAGER (Physician/ASSISTANT BRANCH MANAGER (Physician/ASSISTANT BRANCH MANAGER ) ) ) Arrival Mode Ambulatory Ambulatory Ambulatory Transfer Assistance None None None Patient Identification Verified (Name & Yes Yes Yes ) Patient Requires Transmission-Based No No Precautions Safety Precautions NA Height and Weight Body Mass Index (BMI) 36.9 36.9 36.9 BMI Classification Obese Obese Obese Vital Signs Temperature (97.8 F-99.1 F) 97.5 F L 97.9 F 96.6 F L Temperature Source Temporal Temporal Temporal Pulse Rate (60-100) 81 81 81 Pulse Location Monitor Monitor Monitor Respiratory Rate (12-18) 18 16 18 Respiratory rate source Observation Observation Observation Blood Pressure (90/60-120/80) 167/81 H 157/97 H 174/88 H Blood Pressure Mean 109 117 116 Source Monitor Monitor Monitor Position Semi-Fowlers Semi-Fowlers Semi-Fowlers Blood Pressure Location Left Arm Right Arm Left Arm History Since Last Visit- (Skip if this is Patient's initial visit) Have you changed medications since your No No No last visit? Any new allergies or adverse reactions No No No Had a fall/change in ADL's that may No No increase risk of falls Signs or symptoms of abuse and/or No No No neglect since last visit Have you been in the hospital since your No No No last visit? Has dressing in place as prescribed Yes Yes Yes Has compression in place as prescribed N/A N/A N/A Has offloadiing in place as prescribed N/A N/A N/A Experienced any changes in pain level or No No No management Pain Scale: 0-10 Numeric Is Patient Pain Free? Yes Yes Yes - Nurse 1 - General Ulcer Measurement Start: 05/28/24 08:25 Freq: Status: Active Protocol: Activity Type Activity Date Activity User E-sign Co-sign Detail Recorded Client Recorded Date Recorded By Document 05/28/24 08:25 RB [id number] 05/28/24 08:28 RB Document 06/11/24 08:28 CP [id number] 06/11/24 08:31 CP Document 06/18/24 08:11 RB [id number] 06/18/24 08:14 RB 05/28/24 06/11/24 06/18/24 08:25 08:28 08:11 Wound Center Nurse 1 4-ABDOMEN INFERIOR -Combined with other wound No No -Current Size (cm) - Length 1 0.1 2.5 -Current Size (cm) - Width 1 0.1 1.4 -Current Size (cm) - Depth 0.1 0.1 0.1 -Total Square Cm 1 0.01 3.50 -Photo Taken Yes -Epithelialization Large 67-100% -Tunneling No No -Undermining/Tunneling No No -Circular Undermining No No -Exudate Amt Medium None Present Medium -Exudate Type Serosanguineous Serosanguineous -Wound Margin Distinct, Distinct, Outline Outline Attached Attached -Granulation Amt Medium (34-66%) Medium (34-66%) -Granulation Quality [place] -Slough/Fibrin Yes Yes -Necrosis Amt Medium (34-66%) Small (1-33%) -Necrotic Tissue Type Adherent Slough Adherent Slough -Structure Exposed N/A N/A N/A -Texture (Matilde-wound Skin Appearance) Assessed, No Abnormality Assessed, Scarring Scarring -Moisture (Matilde-wound Skin Appearance) Assessed No Abnormality Assessed -Color (Matilde-wound Skin Appearance) Assessed No Abnormality Assessed -Temperature (Matilde-wound Skin No Abnormality No Abnormality No Abnormality Appearance) (Pt Warm) (Pt Warm) (Pt Warm) -Tenderness on Palpation (Matilde-wound No No Skin Appearance) -Ulcer Cleansing Wound Cleanser Rinsed/ Wound Cleanser Irrigated with Saline -Foul Odor after Cleansing No No No -Anesthetic Used 5% Lidocaine 5% Lidocaine 5% Lidocaine Gel Gel Gel 3-ABDOMEN SUPERIOR -Combined with other wound No No -Current Size (cm) - Length 2 2.2 3 -Current Size (cm) - Width 1.8 1 2 -Current Size (cm) - Depth 0.1 0.1 0.1 -Total Square Cm 3.6 2.2 6 -Photo Taken Yes -Epithelialization Large 67-100% -Tunneling No No -Undermining/Tunneling No No -Circular Undermining No No -Exudate Amt Medium None Present Medium -Exudate Type Serosanguineous Serosanguineous -Wound Margin Distinct, Distinct, Outline Outline Attached Attached -Granulation Amt Medium (34-66%) Large (67-100%) Medium (34-66%) -Granulation Quality [place] -Slough/Fibrin Yes No Yes -Necrosis Amt Medium (34-66%) Medium (34-66%) -Necrotic Tissue Type Adherent Slough Adherent Slough -Structure Exposed N/A N/A N/A -Texture (Matilde-wound Skin Appearance) Assessed, No Abnormality Assessed, Scarring Scarring -Moisture (Matilde-wound Skin Appearance) Assessed No Abnormality Assessed -Color (Matilde-wound Skin Appearance) Assessed No Abnormality Assessed -Temperature (Matilde-wound Skin No Abnormality No Abnormality No Abnormality Appearance) (Pt Warm) (Pt Warm) (Pt Warm) -Tenderness on Palpation (Matilde-wound No No No Skin Appearance) -Ulcer Cleansing Wound Cleanser Rinsed/ Wound Cleanser Irrigated with Saline -Foul Odor after Cleansing No No -Anesthetic Used 5% Lidocaine 5% Lidocaine 5% Lidocaine Gel Gel Gel WC - Nurse 2 - General Ulcer CM Notes Start: 05/28/24 08:25 Freq: Status: Active Protocol: Activity Type Activity Date Activity User E-sign Co-sign Detail Recorded Client Recorded Date Recorded By Document 05/28/24 08:40 GM [id number] 05/28/24 08:45 GM Document 06/11/24 08:45 GM [id number] 06/11/24 08:57 GM Document 06/18/24 08:20 GM [id number] 06/18/24 08:32 GM 05/28/24 06/11/24 06/18/24 08:40 08:45 08:20 Wound Center Nurse 2 4-ABDOMEN INFERIOR -Time 08:40 08:45 08:20 -Correct Patient Yes Yes Yes -Correct Side, Site, Position Yes Yes Yes -Correct Procedure Yes Yes Yes -Procedure Performed Yes Yes Yes -Type of Procedure Debridement Debridement Debridement -Clinical Debridement Subcutaneous Subcutaneous Subcutaneous -Tissue Removed Subcutaneous Subcutaneous Subcutaneous -Post Debridement (cm) - Length 0.9 2.2 2.0 -Post Debridement (cm) - Width 0.8 1.0 0.8 -Post Debridement (cm) - Depth 0.1 0.1 0.1 -Total Square (Post) (cm) 0.72 2.20 1.60 -Area of Debridement (cm) - Length 0.9 2.2 2.0 -Area of Debridement (cm) - Width 0.8 1.0 0.8 -Total Square (Area) (cm) 0.72 2.20 1.60 -Tunneling No No No -Undermining/Tunneling No No No -Circular Undermining No No No -Wound/Ulcer Outcome Not Healed Not Healed Not Healed -Ulcer Cleansing Rinsed/ Rinsed/ Rinsed/ Irrigated with Irrigated with Irrigated with Saline Saline Saline -Foul Odor after Cleansing No No No -Bioengineered Tissue No No No -Bleeding Controlled with Pressure Pressure Pressure -Treatment Response Procedure Procedure Procedure Tolerated Well Tolerated Well Tolerated Well -Offloading No No No -Debridement - Subq, 1st 20sq cm No Yes Yes 3-ABDOMEN SUPERIOR -Time 08:41 08:46 08:20 -Correct Patient Yes Yes Yes -Correct Side, Site, Position Yes Yes Yes -Correct Procedure Yes Yes Yes -Procedure Performed Yes Yes Yes -Type of Procedure Debridement Debridement Debridement -Clinical Debridement Subcutaneous Subcutaneous Subcutaneous -Tissue Removed Subcutaneous Subcutaneous Subcutaneous -Post Debridement (cm) - Length 2.0 3.0 2.7 -Post Debridement (cm) - Width 0.8 1.5 1.7 -Post Debridement (cm) - Depth 0.1 0.1 0.1 -Total Square (Post) (cm) 1.60 4.50 4.59 -Area of Debridement (cm) - Length 2.0 3.0 2.7 -Area of Debridement (cm) - Width 0.8 1.5 1.7 -Total Square (Area) (cm) 1.60 4.50 4.59 -Tunneling No No No -Undermining/Tunneling No No No -Circular Undermining No No No -Wound/Ulcer Outcome Not Healed Not Healed Not Healed -Ulcer Cleansing Rinsed/ Rinsed/ Rinsed/ Irrigated with Irrigated with Irrigated with Saline Saline Saline -Foul Odor after Cleansing No No No -Bioengineered Tissue No No No -Bleeding Controlled with Pressure Pressure Pressure -Treatment Response Procedure Procedure Procedure Tolerated Well Tolerated Well Tolerated Well -Offloading No -Debridement - Subq, 1st 20sq cm Yes No No Pain Scale: 0-10 Numeric Is Patient Pain Free? Yes Yes Yes WC - Nurse 3 - General Ulcer D/C NN Start: 05/28/24 08:25 Freq: Status: Active Protocol: Activity Type Activity Date Activity User E-sign Co-sign Detail Recorded Client Recorded Date Recorded By Document 05/28/24 08:59 RB [id number] 05/28/24 09:01 RB Document 06/11/24 09:11 [id number] 06/11/24 09:12 GM Document 06/18/24 08:45 [id number] 06/18/24 08:46 05/28/24 06/11/24 06/18/24 08:59 09:11 08:45 Wound Care Center Nurse 3 4-ABDOMEN INFERIOR -Ulcer Cleansing Rinsed/ Not Cleansed Not Cleansed Irrigated with Saline -Foul Odor after Cleansing No No -Negative Pressure Wound Therapy N/A -Primary Dressing Applied NonAdherent Collagen Powder Aquacel Extra Contact Layer ,NonAdherent Contact Layer -Other Dressing copper dressing /ABD -Primary Dressing Covered/Secured with Secured with Secured with Secured with Tape Tape,Other Tape,Other -Other Covering abd pad ABD pad -Aquacel Extra 1 -Collagen Powder 1 -Wound Comment(s) vaseline around periulcer 3-ABDOMEN SUPERIOR -Ulcer Cleansing Rinsed/ Not Cleansed Not Cleansed Irrigated with Saline -Foul Odor after Cleansing No No -Negative Pressure Wound Therapy N/A -Primary Dressing Applied NonAdherent Collagen Powder Contact Layer ,NonAdherent Contact Layer -Other Dressing copper dressing / ABD -Primary Dressing Covered/Secured with Secured with Dry Gauze, Tape Secured with Tape -Other Covering used remainder of supplies -Collagen Powder 1 -Wound Comment(s) vaseline around periulcer Other/Comment vaseline Treatment Response Procedure Tolerated Well Pain Scale: 0-10 Numeric Is Patient Pain Free? Yes Yes Yes WC - Visit Discharge Discharge Condition Stable Stable Stable Ambulatory Status Ambulatory Ambulatory Ambulatory Transportation Private Auto Private Auto Private Auto Medication Reconcilliation completed & No provided to patient/care provider Clinical Summary of Care Provided Yes Yes Yes Additional Wound Wound debrided: Abdomen (inferior) Lab / Micro Data Attestation: I reviewed the patient's lab results. Lab results narrative: Laboratory Tests 06/18/24 09:09 WBC 8.6 Hgb 13.8 Hct 41.6 Plt Count 250 Sodium 135 Potassium 3.9 Chloride 99 Carbon Dioxide 23.2 Anion Gap 13 BUN 16 Creatinine 0.73 Estim Creat Clear Calc 130.27 BUN/Creatinine Ratio 21.7 H Glucose 257 H Hemoglobin A1c 8.5 H Calcium 9.1 Total Bilirubin 0.27 AST 23 ALT 27 Alkaline Phosphatase 86 Total Protein 7.5 Albumin 4.1 Globulin 3.4 Albumin/Globulin Ratio 1.2 06/18/24 09:09 06/18/24 09:09 Labs: Laboratory Results - last 24 hr 06/18/24 09:09: WBC 8.6, RBC 5.03, Hgb 13.8, Hct 41.6, MCV 82.7, MCH 27.4, MCHC 33.2, RDW Std Deviation 39.9, RDW Coeff of Bjorn 13.5, Plt Count 250, MPV 9.6, Sodium 135, Potassium 3.9, Chloride 99, Carbon Dioxide 23.2, Anion Gap 13, BUN 16, Creatinine 0.73, Estim Creat Clear Calc 130.27, Est GFR (MDRD) Non-Af 103, B UN/Creatinine Ratio 21.7 H, Glucose 257 H, Hemoglobin A1c 8.5 H, Calcium 9.1, Total Bilirubin 0.27, AST 23, ALT 27, Alkaline Phosphatase 86, Total Protein 7.5, Albumin 4.1, Globulin 3.4, Albumin/Globulin Ratio 1.2 Charges/Coding Multi Select Codes Visit Charges Office Visit/Consults: 37311 OV L3 Est 20min Integumentary Integumentary CPT Codes: 52205 Hannah subq tissue 20 sq cm/< Assessment/Plan Assessment/Plan (1) Non-healing surgical wound: CODE(S): T81.89XA - Other complications of procedures, not elsewhere classified, initial encounter QUALIFIERS: Encounter type: subsequent encounter Qualified Code(s): T81.89XD - Other complications of procedures, not elsewhere classified, subsequent encounter (2) Surgical wound dehiscence: CODE(S): T81.31XA - Disruption of external operation (surgical) wound, not elsewhere classified, initial encounter QUALIFIERS: Encounter type: subsequent encounter Qualified Code(s): T81.31XD - Disruption of external operation (surgical) wound, not elsewhere classified, subsequent encounter (3) Type 2 diabetes mellitus: CODE(S): E11.9 - Type 2 diabetes mellitus without complications QUALIFIERS: Diabetes mellitus long distance operator insulin use: without long distance operator use Diabetes mellitus complication status: with skin complications D iabetes mellitus complication detail: with other skin complication Qualified Code(s): E11.628 - Type 2 diabetes mellitus with other skin complications (4) History of colostomy reversal: CODE(S): Z98.890 - Other specified postprocedural states (5) Surgical wound breakdown: CODE(S): T81.31XA - Disruption of external operation (surgical) wound, not elsewhere classified, initial encounter QUALIFIERS: Encounter type: initial encounter Qualified Code(s): T81.31XA - Disruption of external operation (surgical) wound, not elsewhere classified, initial encounter (6) History of partial colectomy: CODE(S): Z90.49 - Acquired absence of other specified parts of digestive tract (7) History of colostomy: (8) Hypertension: CODE(S): I10 - Essential (primary) hypertension PLAN: Plan This is a 63-year-old male whose history is documented above. He underwent colostomy reversal in July 2023, after having undergone partial colectomy and diverting colostomy one year prior. The patient's vertical midline incision has failed heal completely. Dehiscent areas remained at the superior and inferior portions of his abdominal incision. It is noted at the base of each wound is generally pink and healthy in appearance, though a large amount of erythematous and indurated epidermal surrounds each of the wounds there is question as to whether this represents bacterial infection, fungal infection, or maceration. It is noted that swab cultures were obtained on April 30, 2024, the results of which were positive for Staphylococcus epidermidis, Staphylococcus lugdunensis, and Staphylococcus capitis. The patient was treated with oral doxycycline. The patient's wounds have been cultured again today by means of swab for bacteria culture. Culture results will be awaited. Laboratory studies were obtained today, the results of which are documented herein. The patient's hemoglobin A1c was found to be 8.5. He has been urged to optimize his glycemic control. Nutritional labs appear to be satisfactory. He has been advised to continue with a well-balanced diet and nutritional supplements. We are to implement the use of Aquacel Ag which will be applied topically to the patient's wound on a daily basis. This will be moistened slightly with each application. Because of suspicion of maceration, a skin barrier prep will be applied to the surrounding skin. The patient is to return in 1 week for reassessment by his established Wound Center provider, Dr. Puga. If current measures fail to result in improvement, it may be worthwhile to consider the use of an antifungal agent on the periwound skin, as fungus may account for the periwound erythema and induration. Total time: 25-minutes
== END 2024-06-24 23:59 | disposition home or self-care (01) ==
LOC: WC 08:00
PROVIDERS: PCP Internal Medicine; Referring Provider Internal Medicine; Visit Provider Internal Medicine
DX: T81.89XA Other complications of procedures, not elsewhere classified, initial encounter (principal); Z93.3 Colostomy status; E11.628 Type 2 diabetes mellitus with other skin complications; I10 Essential (primary) hypertension; Z86.16 Personal history of COVID-19; Z82.49 Family history of ischemic heart disease and other diseases of the circulatory system; T81.31XA Disruption of external operation (surgical) wound, not elsewhere classified, initial encounter; Z98.890 Other specified postprocedural states; B95.7 Other staphylococcus as the cause of diseases classified elsewhere; Z87.19 Personal history of other diseases of the digestive system; Z90.49 Acquired absence of other specified parts of digestive tract
CPT/HCPCS: 11042; 36415; 80053; 83036; 85027; 87070; 87075; 87077; 87102; 87186; 87205; 87206

== ENCOUNTER → 2024-06-30 | Outpatient (CLI) | payer OTHER, SELFPAY ==
--- NOTE | 2024-06-30 08:47 | US_ITS ---
PROCEDURE: ABDOMEN LIMITED 06/30/2024 REASON FOR EXAM: NON HEALING SURGICAL WOUND TECHNIQUE: Real-time grayscale and color flow imaging was performed along with routine image documentation. PATIENT PREPARATION: Per protocol COMPARISON: No relevant prior. FINDINGS: A 0.8 x 0.7 x 0.4 cm hyperechoic nodule is seen in the area of the nonhealing wound. Subcutaneous tissues in this area appear normal. No abnormal vascularity or other abnormalities. US/Abdomen Limited IMPRESSION: Hyperechoic area in the region of the nonhealing incision site may represent a surgical clip. Reading Location: [facility]
== END | disposition home or self-care (01) ==
LOC: OPUS 08:43 → US 08:47
PROVIDERS: PCP Internal Medicine; Referring Provider Internal Medicine; Visit Provider Internal Medicine
DX: T81.89XA Other complications of procedures, not elsewhere classified, initial encounter (principal); R19.09 Other intra-abdominal and pelvic swelling, mass and lump
CPT/HCPCS: 76705

== ENCOUNTER 2024-07-23 08:30 | Outpatient (RCR) | payer OTHER, SELFPAY ==
[2024-06-25 00:14] VITALS: BP 174/88; PULSE 81; RESP 18; TEMP 35.9; BMI 36.9
[2024-06-25 08:25] VITALS: BP 171/82; PULSE 79; RESP 16; TEMP 36.3; BMI 36.9
--- NOTE | 2024-06-25 08:53 | PCM.WC.PN ---
History of Present Illness Date of Service: 06/25/24 Chief Complaint: Non healing surgical wound History of Wound: Mr. Duque is a 63 yo being managed for surgical wound break down. Has been seen here since September 2023, 1 month after colostomy reversal. Progress of Wound: No new concerns reported at this time. He was switched to Aquacel at his last visit by covering surgeon due to concern for worsening. Also had repeat cultures done and since then, was started on doxycycline. Had labs done with an A1c at 8.5. His blood glucose readings at home have been elevated and he states that he has been working with his primary care physician to adjust his insulin. Fasting blood glucose range between 150-160. Patient and reports an increase in area of localized swelling. Has been present for some time. In the past, had done better while he was in antibiotics. Prior concern for retained foreign body. Objective Data Objective Data Vital Signs: Vital Signs Temp Pulse Resp BP 97.3 F L 79 16 171/82 H 06/25/24 08:25 06/25/24 08:25 06/25/24 08:25 06/25/24 08:25 Weight: 250 lb Body Mass Index (BMI) 36.9 Charges/Coding Procedures Integumentary 111xxx-113xx: [id number] Hannah subq tissue 20 sq cm/< Physical Exam Const alert, oriented x3 and no apparent distress General Appearance: cooperative, comfortable and well kempt HEENT normocephalic, head/scalp atraumatic and hearing grossly normal bilaterally Eyes EOMs intact bilaterally General Eye: normal appearance of both eyes Neck full ROM and supple General: normal visual inspection Resp normal respiratory effort Effort and Inspection: able to speak in complete sentences GI soft to palpation and non-tender Skin Wounds: wounds noted size Size: See clinical note, bed granulating well, margins well approximated, no odor, open and surrounding erythema Neuro oriented x3, CN's II-XII intact bilaterally, moves all extremities and no focal motor deficits Psych mental status grossly normal, thought process normal, cooperative and affect normal Debridement Note Debridement Note Wound debrided: Abdomen (superior) Type of Debridement: Excisional debridement Anesthesia Used: 5% Lidocaine Gel Depth: Down to and including healthy tissue and in the subcutaneous layer Percentage of wound debrided: 100 Instrument Used: 5mm curette Tissue Removed: Devitalized tissue Severity: Fat Layer Exposed Amount of bleeding with debridement: Mild Bleeding Controlled with: Pressure Patient tolerated procedure: Patient tolerated procedure well Post-Debridement Measurements and Additional Note: Post-Debridement Measurements/Treatment - Nurse 1 - General Ulcer Assessment Start: 06/25/24 08:24 Freq: Status: Active Protocol: JUSTIN Activity Type Activity Date Activity User E-sign Co-sign Detail Recorded Client Recorded Date Recorded By Document 06/25/24 08:25 [email or web address] [id number] 06/25/24 08:27 06/25/24 08:25 - Today's Visit Information Type of service Follow-up Visit (Physician/MEDICAL SCRIBE ) Arrival Mode Ambulatory Patient Identification Verified (Name & Yes ) Height and Weight Body Mass Index (BMI) 36.9 BMI Classification Obese Vital Signs Temperature (97.8 F-99.1 F) 97.3 F L Temperature Source Temporal Pulse Rate (60-100) 79 Pulse Location Monitor Respiratory Rate (12-18) 16 Respiratory rate source Observation Blood Pressure (90/60-120/80) 171/82 H Blood Pressure Mean (mm Hg) 111 Source Monitor Position Sitting Blood Pressure Location Left Arm History Since Last Visit- (Skip if this is Patient's initial visit) Have you changed medications since your No last visit? Any new allergies or adverse reactions No Had a fall/change in ADL's that may No increase risk of falls Signs or symptoms of abuse and/or No neglect since last visit Have you been in the hospital since your No last visit? Has dressing in place as prescribed Yes Has compression in place as prescribed N/A Has offloadiing in place as prescribed N/A Experienced any changes in pain level or No management Pain Scale: 0-10 Numeric Is Patient Pain Free? Yes [place] Nurse 1 - General Ulcer Measurement Start: 06/25/24 08:24 Freq: Status: Active Protocol: Activity Type Activity Date Activity User E-sign Co-sign Detail Recorded Client Recorded Date Recorded By Document 06/25/24 08:25 RADHA [id number] 06/25/24 08:27 06/25/24 08:25 Wound Center Nurse 1 4-ABDOMEN INFERIOR -Current Size (cm) - Length 1.3 -Current Size (cm) - Width 0.5 -Current Size (cm) - Depth 0.1 -Total Square Cm 0.65 -Epithelialization Small 1-33% -Tunneling No -Undermining/Tunneling No -Exudate Amt Small -Exudate Type Serous -Wound Margin Flat & Intact -Granulation Amt Large (67-100%) -Granulation Quality Eitzen -Structure Exposed N/A -Texture (Matilde-wound Skin Appearance) No Abnormality -Moisture (Matilde-wound Skin Appearance) No Abnormality -Color (Matilde-wound Skin Appearance) No Abnormality -Temperature (Matilde-wound Skin No Abnormality Appearance) (Pt Warm) -Tenderness on Palpation (Matilde-wound No Skin Appearance) -Ulcer Cleansing Rinsed/ Irrigated with Saline -Foul Odor after Cleansing No -Anesthetic Used 5% Lidocaine Gel 3-ABDOMEN SUPERIOR -Current Size (cm) - Length 2 -Current Size (cm) - Width 1 -Current Size (cm) - Depth 0.1 -Total Square Cm 2 -Epithelialization Small 1-33% -Exudate Amt Small -Exudate Type Serous -Wound Margin Flat & Intact -Granulation Amt Large (67-100%) -Granulation Quality Eitzen -Texture (Matilde-wound Skin Appearance) No Abnormality -Moisture (Matilde-wound Skin Appearance) No Abnormality -Color (Matilde-wound Skin Appearance) No Abnormality -Temperature (Matilde-wound Skin No Abnormality Appearance) (Pt Warm) -Tenderness on Palpation (Matilde-wound No Skin Appearance) -Ulcer Cleansing Rinsed/ Irrigated with Saline -Foul Odor after Cleansing No -Anesthetic Used 5% Lidocaine Gel WC - Nurse 2 - General Ulcer CM Notes Start: 06/25/24 08:24 Freq: Status: Active Protocol: Activity Type Activity Date Activity User E-sign Co-sign Detail Recorded Client Recorded Date Recorded By Document 06/25/24 08:40 [id number] 06/25/24 08:49 06/25/24 08:40 Wound Center Nurse 2 4-ABDOMEN INFERIOR -Time 08:40 -Correct Patient Yes -Correct Side, Site, Position Yes -Correct Procedure Yes -Procedure Performed Yes -Type of Procedure Debridement -Clinical Debridement Subcutaneous -Tissue Removed Subcutaneous -Post Debridement (cm) - Length 1.4 -Post Debridement (cm) - Width 0.6 -Post Debridement (cm) - Depth 0.1 -Total Square (Post) (cm) 0.84 -Area of Debridement (cm) - Length 1.4 -Area of Debridement (cm) - Width 0.6 -Total Square (Area) (cm) 0.84 -Tunneling No -Undermining/Tunneling No -Circular Undermining No -Wound/Ulcer Outcome Not Healed -Ulcer Cleansing Rinsed/ Irrigated with Saline -Foul Odor after Cleansing No -Bioengineered Tissue No -Bleeding Controlled with Pressure -Treatment Response Procedure Tolerated Well -Offloading No -Debridement - Subq, 1st 20sq cm No 3-ABDOMEN SUPERIOR -Time 08:41 -Correct Patient Yes -Correct Side, Site, Position Yes -Correct Procedure Yes -Procedure Performed Yes -Type of Procedure Debridement -Clinical Debridement Subcutaneous -Tissue Removed Subcutaneous -Post Debridement (cm) - Length 2.0 -Post Debridement (cm) - Width 1.0 -Post Debridement (cm) - Depth 0.1 -Total Square (Post) (cm) 2.00 -Area of Debridement (cm) - Length 2.0 -Area of Debridement (cm) - Width 1.0 -Total Square (Area) (cm) 2.00 -Tunneling Yes -Undermining/Tunneling Yes -Circular Undermining Yes -Wound/Ulcer Outcome Not Healed -Ulcer Cleansing Rinsed/ Irrigated with Saline -Foul Odor after Cleansing No -Bioengineered Tissue No -Bleeding Controlled with Pressure -Treatment Response Procedure Tolerated Well -Debridement - Subq, 1st 20sq cm Yes Pain Scale: 0-10 Numeric Is Patient Pain Free? Yes Additional Wound Wound debrided: Abdomen (inferior) Type of Debridement: Excisional debridement Anesthesia Used: 5% Lidocaine Gel Depth: in the subcutaneous layer Percentage of wound debrided: 100 Instrument Used: 5mm curette Tissue Removed: Devitalized tissue Severity: Fat Layer Exposed Amount of bleeding with debridement: Mild Bleeding Controlled with: Pressure Patient tolerated procedure: Patient tolerated procedure well Assessment/Plan Assessment/Plan (1) Non-healing surgical wound: CODE(S): T81.89XA - Other complications of procedures, not elsewhere classified, initial encounter QUALIFIERS: Encounter type: subsequent encounter Qualified Code(s): T81.89XD - Other complications of procedures, not elsewhere classified, subsequent encounter (2) Type 2 diabetes mellitus: CODE(S): E11.9 - Type 2 diabetes mellitus without complications QUALIFIERS: Diabetes mellitus tank terminal gauger insulin use: without senior living use Diabetes mellitus complication status: with skin complications Diabetes mellitus complication detail: with other skin complication Qualified Code(s): E11.628 - Type 2 diabetes mellitus with other skin complications (3) History of colostomy reversal: CODE(S): Z98.890 - Other specified postprocedural states (4) Surgical wound breakdown: CODE(S): T81.31XA - Disruption of external operation (surgical) wound, not elsewhere classified, initial encounter QUALIFIERS: Encounter type: subsequent encounter Qualified Code(s): T81.31XD - Disruption of external operation (surgical) wound, not elsewhere classified, subsequent encounter (5) Localized swelling of abdominal wall: CODE(S): R22.2 - Localized swelling, mass and lump, trunk PLAN: Plan Debridement done as documented above, procedure was well-tolerated. Some improvement noted since his last visit. 2 weeks ago, Collagen powder was added to copper dressing and last week, he was switched to Aquacel. He likes the fact that he can take a shower every day so we will continue Aquacel extra daily, cover with gauze and tape. Continue periwound moisturizing. Due to concern for increased area of localized swelling, an ultrasound was ordered to better characterize this swelling. No significant tenderness. Prior concern by his primary surgeon for retained suture/product delaying wound healing/causing wound breakdown. Will review ultrasound when available. Cultures reviewed, similar growth to last culture just over a month ago however, more counts this time. He states that he was started on doxycycline on Saturday, similar antibiotic used last time however due to similar culture and increase in growth, recommend switching doxycycline to erythromycin per sensitivity. No documented allergy. Will have pharmacy run a drug interaction. We also discussed how these may be contaminants/colonization as there is truly no clinical concern for infection. His blood glucose readings remain elevated, he was strongly advised to speak with his primary care physician about adjusting his insulin for optimal diabetes control. Goal fasting blood glucose discussed, he voiced understanding. Continue other chronic wound care management. His questions were answered and he was advised to let us know if he has any further questions or concerns. Follow-up in 1 week. This note was generated with [employer] software. It may contain incorrect words, spelling, and punctuation that were not noted in checking the note before signing.
[2024-07-02 08:49] VITALS: BP 156/82; PULSE 79; RESP 18; TEMP 36.2; BMI 36.9
--- NOTE | 2024-07-02 10:04 | WC ---
PHOTO 07/02/24 ANGEL
--- NOTE | 2024-07-02 11:14 | PCM.WC.PN ---
History of Present Illness Date of Service: 07/02/24 Chief Complaint: Non healing surgical wound History of Wound: Mr. Duque is a 63 yo being managed for surgical wound break down. Has been seen here since September 2023, 1 month after colostomy reversal. Progress of Wound: No new concerns reported at this time. Got his ultrasound done, report not available. Started on erythromycin which he is tolerating without any concerns. Objective Data Objective Data Vital Signs: Vital Signs Temp Pulse Resp BP O2 Del Method 97.2 F L 79 18 156/82 H Room Air 07/02/24 08:49 07/02/24 08:49 07/02/24 08:49 07/02/24 08:49 07/02/24 08:49 Oxygen Delivery Method Room Air Weight: 250 lb Body Mass Index (BMI) 36.9 Charges/Coding Procedures Integumentary 111xxx-113xx: [id number] Hannah subq tissue 20 sq cm/< Physical Exam Const alert, oriented x3 and no apparent distress General Appearance: cooperative, comfortable and well kempt HEENT normocephalic, head/scalp atraumatic and hearing grossly normal bilaterally Eyes EOMs intact bilaterally General Eye: normal appearance of both eyes Neck full ROM and supple General: normal visual inspection Resp normal respiratory effort Effort and Inspection: able to speak in complete sentences GI soft to palpation and non-tender Skin Wounds: wounds noted size Size: See clinical note, bed granulating well, margins well approximated and other, no odor, open and surrounding erythema Neuro oriented x3, CN's II-XII intact bilaterally, moves all extremities and no focal motor deficits Psych mental status grossly normal, thought process normal, cooperative and affect normal Debridement Note Debridement Note Wound debrided: Abdomen (superior) Type of Debridement: Excisional debridement Anesthesia Used: 5% Lidocaine Gel Depth: Down to and including healthy tissue and in the subcutaneous layer Percentage of wound debrided: 100 Instrument Used: 5mm curette Tissue Removed: Slough and devitalized tissue Severity: Fat Layer Exposed Amount of bleeding with debridement: Mild Bleeding Controlled with: Pressure Patient tolerated procedure: Patient tolerated procedure well Post-Debridement Measurements and Additional Note: Post-Debridement Measurements/Treatment [id number] - Nurse 1 - General Ulcer Assessment Start: 06/25/24 08:24 Freq: Status: Active Protocol: JUSTIN Activity Type Activity Date Activity User E-sign Co-sign Detail Recorded Client Recorded Date Recorded By Document 06/25/24 08:25 [id number] 06/25/24 08:27 CP Document 07/02/24 08:49 [id number] 07/02/24 08:58 06/25/24 07/02/24 08:25 08:49 - Today's Visit Information Type of service Follow-up Visit Follow-up Visit (Physician/TELEVISION PARTS TESTER (Physician/TELEVISION PARTS TESTER ) ) Arrival Mode Ambulatory Ambulatory Accompanied by Patient Identification Verified (Name & Yes Yes ) Height and Weight Body Mass Index (BMI) 36.9 36.9 BMI Classification Obese Obese Vital Signs Temperature (97.8 F-99.1 F) 97.3 F L 97.2 F L Temperature Source Temporal Temporal Pulse Rate (60-100) 79 79 Pulse Location Monitor Monitor Respiratory Rate (12-18) 16 18 Respiratory rate source Observation Observation Oxygen Delivery Method Room Air Blood Pressure (90/60-120/80) 171/82 H 156/82 H Blood Pressure Mean (mm Hg) 111 106 Source Monitor Monitor Position Sitting Sitting Blood Pressure Location Left Arm Left Arm History Since Last Visit- (Skip if this is Patient's initial visit) Have you changed medications since your No No last visit? Any new allergies or adverse reactions No No Had a fall/change in ADL's that may No No increase risk of falls Signs or symptoms of abuse and/or No No neglect since last visit Have you been in the hospital since your No No last visit? Has dressing in place as prescribed Yes Yes Has compression in place as prescribed N/A N/A Has offloadiing in place as prescribed N/A N/A Experienced any changes in pain level or No No management Left Footwear Regular Shoe Right Footwear Regular Shoe Pain Scale: 0-10 Numeric Is Patient Pain Free? Yes Yes - Nurse 1 - General Ulcer Measurement Start: 06/25/24 08:24 Freq: Status: Active Protocol: Activity Type Activity Date Activity User E-sign Co-sign Detail Recorded Client Recorded Date Recorded By Document 06/25/24 08:25 [id number] 06/25/24 08:27 CP Document 07/02/24 08:49 [id number] 07/02/24 08:58 06/25/24 07/02/24 08:25 08:49 Wound Center Nurse 1 4-ABDOMEN INFERIOR -Current Size (cm) - Length 1.3 0.1 -Current Size (cm) - Width 0.5 0.1 -Current Size (cm) - Depth 0.1 0.1 -Total Square Cm 0.65 0.01 -Date of Last Picture (Recall this 07/02/24 field) -Epithelialization Small 1-33% -Tunneling No -Undermining/Tunneling No -Exudate Amt Small Small -Exudate Type Serous Serosanguineous -Wound Margin Flat & Intact Distinct, Outline Attached -Granulation Amt Large (67-100%) Large (67-100%) -Granulation Quality [place],Red -Structure Exposed N/A -Texture (Matilde-wound Skin Appearance) No Abnormality Assessed, Scarring -Moisture (Matilde-wound Skin Appearance) No Abnormality Assessed -Color (Matilde-wound Skin Appearance) No Abnormality Assessed -Temperature (Matilde-wound Skin No Abnormality No Abnormality Appearance) (Pt Warm) (Pt Warm) -Tenderness on Palpation (Matilde-wound No No Skin Appearance) -Ulcer Cleansing Rinsed/ Soap and Water Irrigated with Saline -Foul Odor after Cleansing No No -Anesthetic Used 5% Lidocaine 5% Lidocaine Gel Gel 3-ABDOMEN SUPERIOR -Current Size (cm) - Length 2 0.1 -Current Size (cm) - Width 1 0.1 -Current Size (cm) - Depth 0.1 0.1 -Total Square Cm 2 0.01 -Date of Last Picture (Recall this 07/02/24 field) -Epithelialization Small 1-33% -Exudate Amt Small Small -Exudate Type Serous Serosanguineous -Wound Margin Flat & Intact Distinct, Outline Attached -Granulation Amt Large (67-100%) Large (67-100%) -Granulation Quality [place] Red -Texture (Matilde-wound Skin Appearance) No Abnormality Assessed, Scarring -Moisture (Matilde-wound Skin Appearance) No Abnormality Assessed -Color (Matilde-wound Skin Appearance) No Abnormality Assessed -Temperature (Matilde-wound Skin No Abnormality No Abnormality Appearance) (Pt Warm) (Pt Warm) -Tenderness on Palpation (Matilde-wound No No Skin Appearance) -Ulcer Cleansing Rinsed/ Soap and Water Irrigated with Saline -Foul Odor after Cleansing No No -Anesthetic Used 5% Lidocaine 5% Lidocaine Gel Gel -Wound Comment(s) not measured during nurse 1 WC - Nurse 2 - General Ulcer CM Notes Start: 06/25/24 08:24 Freq: Status: Active Protocol: Activity Type Activity Date Activity User E-sign Co-sign Detail Recorded Client Recorded Date Recorded By Document 06/25/24 08:40 [id number] 06/25/24 08:49 Document 07/02/24 09:20 [id number] 07/02/24 09:30 06/25/24 07/02/24 08:40 09:20 Wound Center Nurse 2 4-ABDOMEN INFERIOR -Time 08:40 09:21 -Correct Patient Yes Yes -Correct Side, Site, Position Yes Yes -Correct Procedure Yes Yes -Procedure Performed Yes Yes -Type of Procedure Debridement Debridement -Clinical Debridement Subcutaneous Subcutaneous -Tissue Removed Subcutaneous Subcutaneous -Post Debridement (cm) - Length 1.4 1.0 -Post Debridement (cm) - Width 0.6 0.6 -Post Debridement (cm) - Depth 0.1 0.1 -Total Square (Post) (cm) 0.84 0.60 -Area of Debridement (cm) - Length 1.4 1.0 -Area of Debridement (cm) - Width 0.6 0.6 -Total Square (Area) (cm) 0.84 0.60 -Tunneling No No -Undermining/Tunneling No No -Circular Undermining No No -Wound/Ulcer Outcome Not Healed Not Healed -Ulcer Cleansing Rinsed/ Rinsed/ Irrigated with Irrigated with Saline Saline -Foul Odor after Cleansing No No -Bioengineered Tissue No No -Bleeding Controlled with Pressure Pressure -Treatment Response Procedure Procedure Tolerated Well Tolerated Well -Offloading No No -Debridement - Subq, 1st 20sq cm No No 3-ABDOMEN SUPERIOR -Time 08:41 09:22 -Correct Patient Yes Yes -Correct Side, Site, Position Yes Yes -Correct Procedure Yes Yes -Procedure Performed Yes Yes -Type of Procedure Debridement Debridement -Clinical Debridement Subcutaneous Subcutaneous -Tissue Removed Subcutaneous Subcutaneous -Post Debridement (cm) - Length 2.0 1.7 -Post Debridement (cm) - Width 1.0 0.8 -Post Debridement (cm) - Depth 0.1 0.1 -Total Square (Post) (cm) 2.00 1.36 -Area of Debridement (cm) - Length 2.0 1.7 -Area of Debridement (cm) - Width 1.0 0.8 -Total Square (Area) (cm) 2.00 1.36 -Tunneling Yes No -Undermining/Tunneling Yes No -Circular Undermining Yes No -Wound/Ulcer Outcome Not Healed Not Healed -Ulcer Cleansing Rinsed/ Rinsed/ Irrigated with Irrigated with Saline Saline -Foul Odor after Cleansing No No -Bioengineered Tissue No No -Bleeding Controlled with Pressure Pressure -Treatment Response Procedure Procedure Tolerated Well Tolerated Well -Offloading No -Debridement - Subq, 1st 20sq cm Yes Yes Pain Scale: 0-10 Numeric Is Patient Pain Free? Yes Yes - Nurse 3 - General Ulcer D/C NN Start: 06/25/24 08:24 Freq: Status: Active Protocol: Activity Type Activity Date Activity User E-sign Co-sign Detail Recorded Client Recorded Date Recorded By Document 06/25/24 09:06 [id number] 06/25/24 09:10 Document 07/02/24 09:58 OR [id number] 07/02/24 10:09 OR 06/25/24 07/02/24 09:06 09:58 Wound Care Center Nurse 3 4-ABDOMEN INFERIOR -Ulcer Cleansing Rinsed/ Irrigated with Saline -Primary Dressing Applied Aquacel Extra -Primary Dressing Covered/Secured with Dry Gauze, Dry Gauze, Secured with Secured with Tape Tape -Aquacel Extra 1 1 -Wound Comment(s) vaseline around the wound and than skin prep and aquacel extra and adaptic and an abd 3-ABDOMEN SUPERIOR -Ulcer Cleansing Rinsed/ Irrigated with Saline -Primary Dressing Applied Aquacel Extra -Primary Dressing Covered/Secured with Dry Gauze, Secured with Tape -Aquacel Extra 0 Pain Scale: 0-10 Numeric Is Patient Pain Free? Yes Yes - Visit Discharge Discharge Condition Stable Ambulatory Status Ambulatory Transportation Private Auto Clinical Summary of Care Provided Yes Additional Wound Wound debrided: Abdomen (inferior) Type of Debridement: Excisional debridement Anesthesia Used: 5% Lidocaine Gel Depth: Down to and including healthy tissue and - Percentage of wound debrided: 100 Instrument Used: 3mm curette Tissue Removed: Slough and devitalized tissue Severity: Fat Layer Exposed Amount of bleeding with debridement: Mild Bleeding Controlled with: Pressure Patient tolerated procedure: Patient tolerated procedure well Assessment/Plan Assessment/Plan (1) Non-healing surgical wound: CODE(S): T81.89XA - Other complications of procedures, not elsewhere classified, initial encounter QUALIFIERS: Encounter type: subsequent encounter Qualified Code(s): T81.89XD - Other complications of procedures, not elsewhere classified, subsequent encounter (2) Type 2 diabetes mellitus: CODE(S): E11.9 - Type 2 diabetes mellitus without complications QUALIFIERS: Diabetes mellitus complication detail: with other skin complication Diabetes mellitus complication status: with skin complications Diabetes mellitus halfway insulin use: without intermodal customer service use Qualified Code(s): E11.628 - Type 2 diabetes mellitus with other skin complications (3) History of colostomy reversal: CODE(S): Z98.890 - Other specified postprocedural states (4) Surgical wound breakdown: CODE(S): T81.31XA - Disruption of external operation (surgical) wound, not elsewhere classified, initial encounter QUALIFIERS: Encounter type: subsequent encounter Qualified Code(s): T81.31XD - Disruption of external operation (surgical) wound, not elsewhere classified, subsequent encounter (5) Localized swelling of abdominal wall: CODE(S): R22.2 - Localized swelling, mass and lump, trunk PLAN: Plan Debridement done as documented above, procedure was well-tolerated. Some improvement noted since his last visit. He reports some drainage with daily change. Periwound crusting appreciated. Has not been using Adaptic. Tolerating erythromycin without any concerns. Continue Aquacel extra daily to twice daily depending on drainage. Cover with Adaptic and gauze. Continue other chronic wound care management. Moisturize skin adequately. Adequate protein intake and optimized diabetes control also recommended. His questions were answered and he was advised to let us know if he has any further questions or concerns. Follow-up in 1 week or sooner if needed. This note was generated with [employer] dictation software. It may contain incorrect words, spelling, and punctuation that were not noted in checking the note before signing.
[2024-07-09 08:28] VITALS: BP 167/87; PULSE 82; RESP 18; TEMP 36.3; BMI 36.9
--- NOTE | 2024-07-09 09:37 | PCM.WC.PN ---
History of Present Illness Date of Service: 07/09/24 Chief Complaint: Non healing surgical wound History of Wound: Mr. Duque is a 63 yo being managed for surgical wound break down. Has been seen here since September 2023, 1 month after colostomy reversal. Progress of Wound: No new concerns reported at this time. Stable wounds. Has completed antibiotics and he states that he feels overall better since going on antibiotic. Area of concern/swelling also said to have improved on the antibiotic which is similar to his experience in the past. Has an appointment with his surgeon next week due to concern for surgical clip in area of concern. Objective Data Objective Data Vital Signs: Vital Signs Temp Pulse Resp BP O2 Del Method 97.3 F L 82 18 167/87 H Room Air 07/09/24 08:28 07/09/24 08:28 07/09/24 08:28 07/09/24 08:28 07/02/24 08:49 Oxygen Delivery Method Room Air Weight: 250 lb Body Mass Index (BMI) 36.9 Charges/Coding Procedures Integumentary 111xxx-113xx: [id number] Hannah subq tissue 20 sq cm/< Physical Exam Const alert, oriented x3 and no apparent distress General Appearance: cooperative, comfortable and well kempt HEENT normocephalic, head/scalp atraumatic and hearing grossly normal bilaterally Eyes EOMs intact bilaterally General Eye: normal appearance of both eyes Neck full ROM and supple General: normal visual inspection Resp normal respiratory effort Effort and Inspection: able to speak in complete sentences GI soft to palpation and non-tender Skin Wounds: wounds noted size Size: See clinical note, bed granulating well, margins well approximated and other, no odor, open and surrounding erythema Neuro oriented x3, CN's II-XII intact bilaterally, moves all extremities and no focal motor deficits Psych mental status grossly normal, thought process normal, cooperative and affect normal Debridement Note Debridement Note Wound debrided: Abdomen (superior) Type of Debridement: Excisional debridement Anesthesia Used: 5% Lidocaine Gel Depth: Down to and including healthy tissue and in the subcutaneous layer Percentage of wound debrided: 100 Instrument Used: 5mm curette Tissue Removed: Slough and devitalized tissue Severity: Fat Layer Exposed Amount of bleeding with debridement: Mild Bleeding Controlled with: Compression and gauze Patient tolerated procedure: Patient tolerated procedure well Post-Debridement Measurements and Additional Note: Post-Debridement Measurements/Treatment WC - Nurse 1 - General Ulcer Assessment Start: 06/25/24 08:24 Freq: Status: Active Protocol: [email or web address] Activity Type Activity Date Activity User E-sign Co-sign Detail Recorded Client Recorded Date Recorded By Document 06/25/24 08:25 CP [id number] 06/25/24 08:27 CP Document 07/02/24 08:49 KW [id number] 07/02/24 08:58 KW Document 07/09/24 08:28 DL [id number] 07/09/24 08:33 DL 06/25/24 07/02/24 07/09/24 08:25 08:49 08:28 - Today's Visit Information Type of service Follow-up Visit Follow-up Visit Follow-up Visit (Physician/REAL ESTATE CLOSING COORDINATOR (Physician/REAL ESTATE CLOSING COORDINATOR (Physician/REAL ESTATE CLOSING COORDINATOR ) ) ) Arrival Mode Ambulatory Ambulatory Ambulatory Transfer Assistance None Accompanied by Patient Identification Verified (Name & Yes Yes Yes ) Patient Requires Transmission-Based No Precautions Height and Weight Body Mass Index (BMI) 36.9 36.9 36.9 BMI Classification Obese Obese Obese Vital Signs Temperature (97.8 F-99.1 F) 97.3 F L 97.2 F L 97.3 F L Temperature Source Temporal Temporal Temporal Pulse Rate (60-100) 79 79 82 Pulse Location Monitor Monitor Monitor Respiratory Rate (12-18) 16 18 18 Respiratory rate source Observation Observation Observation Oxygen Delivery Method Room Air Blood Pressure (90/60-120/80) 171/82 H 156/82 H 167/87 H Blood Pressure Mean (mm Hg) 111 106 113 Source Monitor Monitor Monitor Position Sitting Sitting Blood Pressure Location Left Arm Left Arm History Since Last Visit- (Skip if this is Patient's initial visit) Have you changed medications since your No No No last visit? Any new allergies or adverse reactions No No No Had a fall/change in ADL's that may No No No increase risk of falls Signs or symptoms of abuse and/or No No No neglect since last visit Have you been in the hospital since your No No No last visit? Has dressing in place as prescribed Yes Yes Yes Has compression in place as prescribed N/A N/A N/A Has offloadiing in place as prescribed N/A N/A N/A Experienced any changes in pain level or No No No management Left Footwear Regular Shoe Right Footwear Regular Shoe Pain Scale: 0-10 Numeric Is Patient Pain Free? Yes Yes Yes WC - Nurse 1 - General Ulcer Measurement Start: 06/25/24 08:24 Freq: Status: Active Protocol: Activity Type Activity Date Activity User E-sign Co-sign Detail Recorded Client Recorded Date Recorded By Document 06/25/24 08:25 CP [id number] 06/25/24 08:27 CP Document 07/02/24 08:49 KW [id number] 07/02/24 08:58 KW Document 07/09/24 08:28 DL [id number] 07/09/24 08:33 DL 06/25/24 07/02/24 07/09/24 08:25 08:49 08:28 Wound Center Nurse 1 4-ABDOMEN INFERIOR -Current Size (cm) - Length 1.3 0.1 0.8 -Current Size (cm) - Width 0.5 0.1 0.5 -Current Size (cm) - Depth 0.1 0.1 0.1 -Total Square Cm 0.65 0.01 0.40 -Date of Last Picture (Recall this 07/02/24 field) -Photo Taken Yes -Epithelialization Small 1-33% -Tunneling No -Undermining/Tunneling No -Exudate Amt Small Small Small -Exudate Type Serous Serosanguineous Serosanguineous -Wound Margin Flat & Intact Distinct, Distinct, Outline Outline Attached Attached -Granulation Amt Large (67-100%) Large (67-100%) None Present (0 %) -Granulation Quality [place] -Necrosis Amt Large (67-100%) -Necrotic Tissue Type Adherent Slough -Structure Exposed N/A N/A -Texture (Matilde-wound Skin Appearance) No Abnormality Assessed, Scarring Scarring -Moisture (Matilde-wound Skin Appearance) No Abnormality Assessed No Abnormality -Color (Matilde-wound Skin Appearance) No Abnormality Assessed No Abnormality -Temperature (Matilde-wound Skin No Abnormality No Abnormality No Abnormality Appearance) (Pt Warm) (Pt Warm) (Pt Warm) -Tenderness on Palpation (Matilde-wound No No Skin Appearance) -Ulcer Cleansing Rinsed/ Soap and Water Rinsed/ Irrigated with Irrigated with Saline Saline -Foul Odor after Cleansing No No No -Anesthetic Used 5% Lidocaine 5% Lidocaine 5% Lidocaine Gel Gel Gel 3-ABDOMEN SUPERIOR -Current Size (cm) - Length 2 0.1 1.9 -Current Size (cm) - Width 1 0.1 1.1 -Current Size (cm) - Depth 0.1 0.1 0.2 -Total Square Cm 2 0.01 2.09 -Date of Last Picture (Recall this 07/02/24 field) -Photo Taken Yes -Epithelialization Small 1-33% -Exudate Amt Small Small Small -Exudate Type Serous Serosanguineous Serosanguineous -Wound Margin Flat & Intact Distinct, Distinct, Outline Outline Attached Attached -Granulation Amt Large (67-100%) Large (67-100%) Large (67-100%) -Granulation Quality [place] -Necrosis Amt Small (1-33%) -Necrotic Tissue Type Adherent Slough -Structure Exposed N/A -Texture (Matilde-wound Skin Appearance) No Abnormality Assessed, Scarring Scarring -Moisture (Matilde-wound Skin Appearance) No Abnormality Assessed No Abnormality -Color (Matilde-wound Skin Appearance) No Abnormality Assessed No Abnormality -Temperature (Matilde-wound Skin No Abnormality No Abnormality No Abnormality Appearance) (Pt Warm) (Pt Warm) (Pt Warm) -Tenderness on Palpation (Matilde-wound No No No Skin Appearance) -Ulcer Cleansing Rinsed/ Soap and Water Rinsed/ Irrigated with Irrigated with Saline Saline -Foul Odor after Cleansing No No No -Anesthetic Used 5% Lidocaine 5% Lidocaine 5% Lidocaine Gel Gel Gel -Wound Comment(s) not measured during nurse 1 WC - Nurse 2 - General Ulcer CM Notes Start: 06/25/24 08:24 Freq: Status: Active Protocol: Activity Type Activity Date Activity User E-sign Co-sign Detail Recorded Client Recorded Date Recorded By Document 06/25/24 08:40 [id number] 06/25/24 08:49 Document 07/02/24 09:20 [id number] 07/02/24 09:30 Document 07/09/24 08:41 [id number] 07/09/24 08:48 06/25/24 07/02/24 07/09/24 08:40 09:20 08:41 Wound Center Nurse 2 4-ABDOMEN INFERIOR -Time 08:40 09:21 08:41 -Correct Patient Yes Yes Yes -Correct Side, Site, Position Yes Yes Yes -Correct Procedure Yes Yes Yes -Procedure Performed Yes Yes Yes -Type of Procedure Debridement Debridement Debridement -Clinical Debridement Subcutaneous Subcutaneous Subcutaneous -Tissue Removed Subcutaneous Subcutaneous Subcutaneous -Post Debridement (cm) - Length 1.4 1.0 0.8 -Post Debridement (cm) - Width 0.6 0.6 0.7 -Post Debridement (cm) - Depth 0.1 0.1 0.1 -Total Square (Post) (cm) 0.84 0.60 0.56 -Area of Debridement (cm) - Length 1.4 1.0 0.8 -Area of Debridement (cm) - Width 0.6 0.6 0.7 -Total Square (Area) (cm) 0.84 0.60 0.56 -Tunneling No No No -Undermining/Tunneling No No No -Circular Undermining No No No -Wound/Ulcer Outcome Not Healed Not Healed Not Healed -Ulcer Cleansing Rinsed/ Rinsed/ Rinsed/ Irrigated with Irrigated with Irrigated with Saline Saline Saline -Foul Odor after Cleansing No No No -Bioengineered Tissue No No No -Bleeding Controlled with Pressure Pressure Pressure -Treatment Response Procedure Procedure Procedure Tolerated Well Tolerated Well Tolerated Well -Offloading No No No -Debridement - Subq, 1st 20sq cm No No Yes 3-ABDOMEN SUPERIOR -Time 08:41 09:22 08:42 -Correct Patient Yes Yes Yes -Correct Side, Site, Position Yes Yes Yes -Correct Procedure Yes Yes Yes -Procedure Performed Yes Yes Yes -Type of Procedure Debridement Debridement Debridement -Clinical Debridement Subcutaneous Subcutaneous Subcutaneous -Tissue Removed Subcutaneous Subcutaneous Subcutaneous -Post Debridement (cm) - Length 2.0 1.7 1.9 -Post Debridement (cm) - Width 1.0 0.8 1.1 -Post Debridement (cm) - Depth 0.1 0.1 0.1 -Total Square (Post) (cm) 2.00 1.36 2.09 -Area of Debridement (cm) - Length 2.0 1.7 1.9 -Area of Debridement (cm) - Width 1.0 0.8 1.1 -Total Square (Area) (cm) 2.00 1.36 2.09 -Tunneling Yes No No -Undermining/Tunneling Yes No No -Circular Undermining Yes No No -Wound/Ulcer Outcome Not Healed Not Healed Not Healed -Ulcer Cleansing Rinsed/ Rinsed/ Not Cleansed Irrigated with Irrigated with Saline Saline -Foul Odor after Cleansing No No No -Bioengineered Tissue No No No -Bleeding Controlled with Pressure Pressure Pressure -Treatment Response Procedure Procedure Procedure Tolerated Well Tolerated Well Tolerated Well -Offloading No No -Debridement - Subq, 1st 20sq cm Yes Yes Yes Pain Scale: 0-10 Numeric Is Patient Pain Free? Yes Yes Yes - Nurse 3 - General Ulcer D/C NN Start: 06/25/24 08:24 Freq: Status: Active Protocol: Activity Type Activity Date Activity User E-sign Co-sign Detail Recorded Client Recorded Date Recorded By Document 06/25/24 09:06 CP [id number] 06/25/24 09:10 CP Document 07/02/24 09:58 MT [id number] 07/02/24 10:09 MT Document 07/09/24 09:00 DL [id number] 07/09/24 09:02 DL 06/25/24 07/02/24 07/09/24 09:06 09:58 09:00 Wound Care Center Nurse 3 4-ABDOMEN INFERIOR -Ulcer Cleansing Rinsed/ Soap and Water Irrigated with Saline -Foul Odor after Cleansing No -Primary Dressing Applied Aquacel Extra Aquacel Extra, NonAdherent Contact Layer -Other Dressing ABD -Primary Dressing Covered/Secured with Dry Gauze, Dry Gauze, Dry Gauze, Secured with Secured with Secured with Tape Tape Tape -Aquacel Extra 1 1 1 -Wound Comment(s) vaseline around the wound and than skin prep and aquacel extra and adaptic and an abd 3-ABDOMEN SUPERIOR -Ulcer Cleansing Rinsed/ Soap and Water Irrigated with Saline -Foul Odor after Cleansing No -Primary Dressing Applied Aquacel Extra NonAdherent Contact Layer -Other Dressing Aquacel EX -Primary Dressing Covered/Secured with Dry Gauze, Dry Gauze, Secured with Secured with Tape Tape -Other Covering ABD -Aquacel Extra 0 Treatment Response Procedure Tolerated Well Pain Scale: 0-10 Numeric Is Patient Pain Free? Yes Yes Yes WC - Visit Discharge Discharge Condition Stable Stable Ambulatory Status Ambulatory Ambulatory Transportation Private Auto Private Auto Clinical Summary of Care Provided Yes Additional Wound Wound debrided: Abdomen (inferior) Type of Debridement: Excisional debridement Anesthesia Used: 5% Lidocaine Gel Depth: Down to and including healthy tissue and in the subcutaneous layer Percentage of wound debrided: 100 Instrument Used: 3mm curette Tissue Removed: Slough and devitalized tissue Severity: Fat Layer Exposed Amount of bleeding with debridement: Mild Bleeding Controlled with: Pressure Patient tolerated procedure: Patient tolerated procedure well Assessment/Plan Assessment/Plan (1) Non-healing surgical wound: CODE(S): T81.89XA - Other complications of procedures, not elsewhere classified, initial encounter QUALIFIERS: Encounter type: subsequent encounter Qualified Code(s): T81.89XD - Other complications of procedures, not elsewhere classified, subsequent encounter (2) Type 2 diabetes mellitus: CODE(S): E11.9 - Type 2 diabetes mellitus without complications QUALIFIERS: Diabetes mellitus intermediate project manager insulin use: without intermediate use Diabetes mellitus complication status: with skin complications Diabetes mellitus complication detail: with other skin complication Qualified Code(s): E11.628 - Type 2 diabetes mellitus with other skin complications (3) History of colostomy reversal: CODE(S): Z98.890 - Other specified postprocedural states (4) Surgical wound breakdown: CODE(S): T81.31XA - Disruption of external operation (surgical) wound, not elsewhere classified, initial encounter QUALIFIERS: Encounter type: subsequent encounter Qualified Code(s): T81.31XD - Disruption of external operation (surgical) wound, not elsewhere classified, subsequent encounter (5) Localized swelling of abdominal wall: CODE(S): R22.2 - Localized swelling, mass and lump, trunk PLAN: Plan Debridement done as documented above, procedure was well-tolerated. Inferior wound with some improvement however superior with no significant change. Ultrasound done due to concern for swelling showed possible surgical clip in the area. This result has been faxed over to his surgeon and he has an appointment with her next . As above, he states that he tolerated erythromycin without any concerns and feels better overall. Continue Aquacel extra daily to twice daily depending on drainage. Cover with Adaptic and gauze. Continue other chronic wound care management. Moisturize skin adequately. Adequate protein intake and optimized diabetes control also recommended. His questions were answered and he was advised to let us know if he has any further questions or concerns. Follow-up in 2 weeks This note was generated with [employer] software. It may contain incorrect words, spelling, and punctuation that were not noted in checking the note before signing.
[2024-07-23 08:42] VITALS: BP 167/87; PULSE 86; RESP 18; TEMP 36.6; BMI 36.9
--- NOTE | 2024-07-23 11:30 | PN.PCM_ITS ---
History of Present Illness Date of Service: 07/23/24 Chief Complaint: Non healing surgical wound History of Wound: Mr. Duque is a 63 yo being managed for surgical wound break down. Has been seen here since September 2023, 1 month after colostomy reversal. Progress of Wound: No new concerns reported at this time. Was seen by his primary surgeon last week due to concern for retained surgical clip. Currently, no breakdown and so observation has been recommended. Regarding his chronic wound/ulcer, no new concerns have been reported. He states that he is doing dressing changes as recommended. Blood glucose readings are still poorly controlled. Fasting blood sugar this morning at 205. Objective Data Objective Data Vital Signs: Vital Signs Temp Pulse Resp BP O2 Del Method 97.9 F 86 18 167/87 H Room Air 07/23/24 08:42 07/23/24 08:42 07/23/24 08:42 07/23/24 08:42 07/23/24 08:42 Oxygen Delivery Method Room Air Weight: 250 lb Body Mass Index (BMI) 36.9 Charges/Coding Procedures Integumentary 111xxx-113xx: [id number] Hannah subq tissue 20 sq cm/< Physical Exam Const alert, oriented x3 and no apparent distress General Appearance: cooperative, comfortable and well kempt HEENT normocephalic, head/scalp atraumatic and hearing grossly normal bilaterally Eyes EOMs intact bilaterally General Eye: normal appearance of both eyes Neck full ROM and supple General: normal visual inspection Resp normal respiratory effort Effort and Inspection: able to speak in complete sentences GI soft to palpation and non-tender Skin Wounds: wounds noted size Size: See clinical note, bed granulating well, margins well approximated and other, no odor, open and surrounding erythema Neuro oriented x3, CN's II-XII intact bilaterally, moves all extremities and no focal motor deficits Psych mental status grossly normal, thought process normal, cooperative and affect normal Debridement Note Debridement Note Wound debrided: Abdomen (superior) Type of Debridement: Excisional debridement Anesthesia Used: 5% Lidocaine Gel Depth: Down to and including healthy tissue and in the subcutaneous layer Percentage of wound debrided: 100 Instrument Used: 5mm curette Tissue Removed: Slough and devitalized tissue Severity: Fat Layer Exposed Amount of bleeding with debridement: Mild Bleeding Controlled with: Pressure Patient tolerated procedure: Patient tolerated procedure well Post-Debridement Measurements and Additional Note: Post-Debridement Measurements/Treatment WC - Nurse 1 - General Ulcer Assessment Start: 06/25/24 08:24 Freq: Status: Active Protocol: JUSTIN Activity Type Activity Date Activity User E-sign Co-sign Detail Recorded Client Recorded Date Recorded By Document 06/25/24 08:25 CP [id number] 06/25/24 08:27 CP Document 07/02/24 08:49 KW [id number] 07/02/24 08:58 KW Document 07/09/24 08:28 DL [id number] 07/09/24 08:33 DL Document 07/23/24 08:42 MT [id number] 07/23/24 08:48 MT 06/25/24 07/02/24 07/09/24 08:25 08:49 08:28 WC - Today's Visit Information Type of service Follow-up Visit Follow-up Visit Follow-up Visit (Physician/PROJECT ARCHITECT (Physician/PROJECT ARCHITECT (Physician/PROJECT ARCHITECT ) ) ) Arrival Mode Ambulatory Ambulatory Ambulatory Transfer Assistance None Accompanied by Patient Identification Verified (Name & Yes Yes Yes ) Patient Requires Transmission-Based No Precautions Safety Precautions Height and Weight Body Mass Index (BMI) 36.9 36.9 36.9 BMI Classification Obese Obese Obese Vital Signs Temperature (97.8 F-99.1 F) 97.3 F L 97.2 F L 97.3 F L Temperature Source Temporal Temporal Temporal Pulse Rate (60-100) 79 79 82 Pulse Location Monitor Monitor Monitor Respiratory Rate (12-18) 16 18 18 Respiratory rate source Observation Observation Observation Oxygen Delivery Method Room Air Blood Pressure (90/60-120/80) 171/82 H 156/82 H 167/87 H Blood Pressure Mean (mm Hg) 111 106 113 Source Monitor Monitor Monitor Position Sitting Sitting Blood Pressure Location Left Arm Left Arm History Since Last Visit- (Skip if this is Patient's initial visit) Have you changed medications since your No No No last visit? Any new allergies or adverse reactions No No No Had a fall/change in ADL's that may No No No increase risk of falls Signs or symptoms of abuse and/or No No No neglect since last visit Have you been in the hospital since your No No No last visit? Has dressing in place as prescribed Yes Yes Yes Has compression in place as prescribed N/A N/A N/A Has offloadiing in place as prescribed N/A N/A N/A Experienced any changes in pain level or No No No management Left Footwear Regular Shoe Right Footwear Regular Shoe Pain Scale: 0-10 Numeric Is Patient Pain Free? Yes Yes Yes 07/23/24 08:42 WC - Today's Visit Information Type of service Follow-up Visit (Physician/PROJECT ARCHITECT ) Arrival Mode Transfer Assistance Accompanied by self Patient Identification Verified (Name & Yes ) Patient Requires Transmission-Based Precautions Safety Precautions Fall Prevention Height and Weight Body Mass Index (BMI) 36.9 BMI Classification Obese Vital Signs Temperature (97.8 F-99.1 F) 97.9 F Temperature Source Temporal Pulse Rate (60-100) 86 Pulse Location Monitor Respiratory Rate (12-18) 18 Respiratory rate source Monitor Oxygen Delivery Method Room Air Blood Pressure (90/60-120/80) 167/87 H Blood Pressure Mean (mm Hg) 113 Source Monitor Position Semi-Fowlers Blood Pressure Location Left Arm History Since Last Visit- (Skip if this is Patient's initial visit) Have you changed medications since your last visit? Any new allergies or adverse reactions Had a fall/change in ADL's that may increase risk of falls Signs or symptoms of abuse and/or neglect since last visit Have you been in the hospital since your last visit? Has dressing in place as prescribed Yes Has compression in place as prescribed Yes Has offloadiing in place as prescribed Yes Experienced any changes in pain level or Yes management Left Footwear Regular Shoe Right Footwear Regular Shoe Pain Scale: 0-10 Numeric Is Patient Pain Free? Yes - Nurse 1 - General Ulcer Measurement Start: 06/25/24 08:24 Freq: Status: Active Protocol: Activity Type Activity Date Activity User E-sign Co-sign Detail Recorded Client Recorded Date Recorded By Document 06/25/24 08:25 CP [id number] 06/25/24 08:27 CP Document 07/02/24 08:49 KW [id number] 07/02/24 08:58 KW Document 07/09/24 08:28 DL [id number] 07/09/24 08:33 DL Document 07/23/24 08:42 MT [id number] 07/23/24 08:48 MT 06/25/24 07/02/24 07/09/24 08:25 08:49 08:28 Wound Center Nurse 1 4-ABDOMEN INFERIOR -Current Size (cm) - Length 1.3 0.1 0.8 -Current Size (cm) - Width 0.5 0.1 0.5 -Current Size (cm) - Depth 0.1 0.1 0.1 -Total Square Cm 0.65 0.01 0.40 -Date of Last Picture (Recall this 07/02/24 field) -Photo Taken Yes -Epithelialization Small 1-33% -Tunneling No -Undermining/Tunneling No -Circular Undermining -Exudate Amt Small Small Small -Exudate Type Serous Serosanguineous Serosanguineous -Wound Margin Flat & Intact Distinct, Distinct, Outline Outline Attached Attached -Granulation Amt Large (67-100%) Large (67-100%) None Present (0 %) -Granulation Quality Lamar Lamar,Red -Necrosis Amt Large (67-100%) -Necrotic Tissue Type Adherent Slough -Structure Exposed N/A N/A -Texture (Matilde-wound Skin Appearance) No Abnormality Assessed, Scarring Scarring -Moisture (Matilde-wound Skin Appearance) No Abnormality Assessed No Abnormality -Color (Matilde-wound Skin Appearance) No Abnormality Assessed No Abnormality -Temperature (Matilde-wound Skin No Abnormality No Abnormality No Abnormality Appearance) (Pt Warm) (Pt Warm) (Pt Warm) -Tenderness on Palpation (Matilde-wound No No Skin Appearance) -Ulcer Cleansing Rinsed/ Soap and Water Rinsed/ Irrigated with Irrigated with Saline Saline -Foul Odor after Cleansing No No No -Anesthetic Used 5% Lidocaine 5% Lidocaine 5% Lidocaine Gel Gel Gel 3-ABDOMEN SUPERIOR -Current Size (cm) - Length 2 0.1 1.9 -Current Size (cm) - Width 1 0.1 1.1 -Current Size (cm) - Depth 0.1 0.1 0.2 -Total Square Cm 2 0.01 2.09 -Date of Last Picture (Recall this 07/02/24 field) -Photo Taken Yes -Epithelialization Small 1-33% -Tunneling -Undermining/Tunneling -Circular Undermining -Exudate Amt Small Small Small -Exudate Type Serous Serosanguineous Serosanguineous -Wound Margin Flat & Intact Distinct, Distinct, Outline Outline Attached Attached -Granulation Amt Large (67-100%) Large (67-100%) Large (67-100%) -Granulation Quality Lamar Red Lamar -Slough/Fibrin -Necrosis Amt Small (1-33%) -Necrotic Tissue Type Adherent Slough -Structure Exposed N/A -Texture (Matilde-wound Skin Appearance) No Abnormality Assessed, Scarring Scarring -Moisture (Matilde-wound Skin Appearance) No Abnormality Assessed No Abnormality -Color (Matilde-wound Skin Appearance) No Abnormality Assessed No Abnormality -Temperature (Matilde-wound Skin No Abnormality No Abnormality No Abnormality Appearance) (Pt Warm) (Pt Warm) (Pt Warm) -Tenderness on Palpation (Matilde-wound No No No Skin Appearance) -Ulcer Cleansing Rinsed/ Soap and Water Rinsed/ Irrigated with Irrigated with Saline Saline -Foul Odor after Cleansing No No No -Anesthetic Used 5% Lidocaine 5% Lidocaine 5% Lidocaine Gel Gel Gel -Wound Comment(s) not measured during nurse 1 Lower Limb Edema Present 07/23/24 08:42 Wound Center Nurse 1 4-ABDOMEN INFERIOR -Current Size (cm) - Length 0.1 -Current Size (cm) - Width 0.1 -Current Size (cm) - Depth 0.1 -Total Square Cm 0.01 -Date of Last Picture (Recall this field) -Photo Taken Yes -Epithelialization Large 67-100% -Tunneling -Undermining/Tunneling No -Circular Undermining No -Exudate Amt -Exudate Type -Wound Margin Flat & Intact -Granulation Amt -Granulation Quality N/A -Necrosis Amt -Necrotic Tissue Type -Structure Exposed -Texture (Matilde-wound Skin Appearance) Assessed -Moisture (Matilde-wound Skin Appearance) Assessed -Color (Matilde-wound Skin Appearance) Assessed -Temperature (Matilde-wound Skin No Abnormality Appearance) (Pt Warm) -Tenderness on Palpation (Matilde-wound No Skin Appearance) -Ulcer Cleansing Soap and Water -Foul Odor after Cleansing No -Anesthetic Used 5% Lidocaine Gel 3-ABDOMEN SUPERIOR -Current Size (cm) - Length 2.0 -Current Size (cm) - Width 1.5 -Current Size (cm) - Depth 0.1 -Total Square Cm 3.00 -Date of Last Picture (Recall this field) -Photo Taken No -Epithelialization -Tunneling No -Undermining/Tunneling No -Circular Undermining No -Exudate Amt Small -Exudate Type Serosanguineous -Wound Margin Flat & Intact -Granulation Amt Large (67-100%) -Granulation Quality Pale,Lamar -Slough/Fibrin No -Necrosis Amt -Necrotic Tissue Type -Structure Exposed -Texture (Matilde-wound Skin Appearance) Assessed -Moisture (Matilde-wound Skin Appearance) Assessed -Color (Matilde-wound Skin Appearance) Assessed -Temperature (Matilde-wound Skin No Abnormality Appearance) (Pt Warm) -Tenderness on Palpation (Matilde-wound No Skin Appearance) -Ulcer Cleansing Soap and Water -Foul Odor after Cleansing -Anesthetic Used 5% Lidocaine Gel -Wound Comment(s) Lower Limb Edema Present NA WC - Nurse 2 - General Ulcer CM Notes Start: 06/25/24 08:24 Freq: Status: Active Protocol: Activity Type Activity Date Activity User E-sign Co-sign Detail Recorded Client Recorded Date Recorded By Document 06/25/24 08:40 GM [id number] 06/25/24 08:49 GM Document 07/02/24 09:20 GM [id number] 07/02/24 09:30 GM Document 07/09/24 08:41 GM [id number] 07/09/24 08:48 GM Edit Result 07/09/24 08:41 GM (1) [id number] 07/15/24 07:34 GM Document 07/23/24 09:01 GM [id number] 07/23/24 09:09 GM (1) 3-ABDOMEN SUPERIOR - Debridement - Subq, 1st 20sq cm Yes => No 06/25/24 07/02/24 07/09/24 08:40 09:20 08:41 Wound Center Nurse 2 4-ABDOMEN INFERIOR -Time 08:40 09:21 08:41 -Correct Patient Yes Yes Yes -Correct Side, Site, Position Yes Yes Yes -Correct Procedure Yes Yes Yes -Procedure Performed Yes Yes Yes -Type of Procedure Debridement Debridement Debridement -Clinical Debridement Subcutaneous Subcutaneous Subcutaneous -Tissue Removed Subcutaneous Subcutaneous Subcutaneous -Post Debridement (cm) - Length 1.4 1.0 0.8 -Post Debridement (cm) - Width 0.6 0.6 0.7 -Post Debridement (cm) - Depth 0.1 0.1 0.1 -Total Square (Post) (cm) 0.84 0.60 0.56 -Area of Debridement (cm) - Length 1.4 1.0 0.8 -Area of Debridement (cm) - Width 0.6 0.6 0.7 -Total Square (Area) (cm) 0.84 0.60 0.56 -Tunneling No No No -Undermining/Tunneling No No No -Circular Undermining No No No -Wound/Ulcer Outcome Not Healed Not Healed Not Healed -Ulcer Cleansing Rinsed/ Rinsed/ Rinsed/ Irrigated with Irrigated with Irrigated with Saline Saline Saline -Foul Odor after Cleansing No No No -Bioengineered Tissue No No No -Bleeding Controlled with Pressure Pressure Pressure -Treatment Response Procedure Procedure Procedure Tolerated Well Tolerated Well Tolerated Well -Offloading No No No -Debridement - Subq, 1st 20sq cm No No Yes 3-ABDOMEN SUPERIOR -Time 08:41 09:22 08:42 -Correct Patient Yes Yes Yes -Correct Side, Site, Position Yes Yes Yes -Correct Procedure Yes Yes Yes -Procedure Performed Yes Yes Yes -Type of Procedure Debridement Debridement Debridement -Clinical Debridement Subcutaneous Subcutaneous Subcutaneous -Tissue Removed Subcutaneous Subcutaneous Subcutaneous -Post Debridement (cm) - Length 2.0 1.7 1.9 -Post Debridement (cm) - Width 1.0 0.8 1.1 -Post Debridement (cm) - Depth 0.1 0.1 0.1 -Total Square (Post) (cm) 2.00 1.36 2.09 -Area of Debridement (cm) - Length 2.0 1.7 1.9 -Area of Debridement (cm) - Width 1.0 0.8 1.1 -Total Square (Area) (cm) 2.00 1.36 2.09 -Tunneling Yes No No -Undermining/Tunneling Yes No No -Circular Undermining Yes No No -Wound/Ulcer Outcome Not Healed Not Healed Not Healed -Ulcer Cleansing Rinsed/ Rinsed/ Not Cleansed Irrigated with Irrigated with Saline Saline -Foul Odor after Cleansing No No No -Bioengineered Tissue No No No -Bleeding Controlled with Pressure Pressure Pressure -Treatment Response Procedure Procedure Procedure Tolerated Well Tolerated Well Tolerated Well -Offloading No No -Debridement - Subq, 1st 20sq cm Yes Yes No Pain Scale: 0-10 Numeric Is Patient Pain Free? Yes Yes Yes 07/23/24 09:01 Wound Center Nurse 2 4-ABDOMEN INFERIOR -Time 09:02 -Correct Patient Yes -Correct Side, Site, Position Yes -Correct Procedure Yes -Procedure Performed Yes -Type of Procedure Debridement -Clinical Debridement Subcutaneous -Tissue Removed Subcutaneous -Post Debridement (cm) - Length 0.2 -Post Debridement (cm) - Width 0.6 -Post Debridement (cm) - Depth 0.1 -Total Square (Post) (cm) 0.12 -Area of Debridement (cm) - Length 0.2 -Area of Debridement (cm) - Width 0.6 -Total Square (Area) (cm) 0.12 -Tunneling No -Undermining/Tunneling No -Circular Undermining No -Wound/Ulcer Outcome Not Healed -Ulcer Cleansing Rinsed/ Irrigated with Saline -Foul Odor after Cleansing No -Bioengineered Tissue No -Bleeding Controlled with Pressure -Treatment Response Procedure Tolerated Well -Offloading No -Debridement - Subq, 1st 20sq cm No 3-ABDOMEN SUPERIOR -Time 09:03 -Correct Patient Yes -Correct Side, Site, Position Yes -Correct Procedure Yes -Procedure Performed Yes -Type of Procedure Debridement -Clinical Debridement Subcutaneous -Tissue Removed Subcutaneous -Post Debridement (cm) - Length 1.7 -Post Debridement (cm) - Width 1.4 -Post Debridement (cm) - Depth 0.1 -Total Square (Post) (cm) 2.38 -Area of Debridement (cm) - Length 1.7 -Area of Debridement (cm) - Width 1.4 -Total Square (Area) (cm) 2.38 -Tunneling No -Undermining/Tunneling No -Circular Undermining No -Wound/Ulcer Outcome Not Healed -Ulcer Cleansing Rinsed/ Irrigated with Saline -Foul Odor after Cleansing No -Bioengineered Tissue No -Bleeding Controlled with Pressure -Treatment Response Procedure Tolerated Well -Offloading No -Debridement - Subq, 1st 20sq cm Yes Pain Scale: 0-10 Numeric Is Patient Pain Free? Yes WC - Nurse 3 - General Ulcer D/C NN Start: 06/25/24 08:24 Freq: Status: Active Protocol: Activity Type Activity Date Activity User E-sign Co-sign Detail Recorded Client Recorded Date Recorded By Document 06/25/24 09:06 CP [id number] 06/25/24 09:10 CP Document 07/02/24 09:58 MT [id number] 07/02/24 10:09 MT Document 07/09/24 09:00 DL [id number] 07/09/24 09:02 DL Document 07/23/24 09:29 DS [id number] 07/23/24 09:31 DS 06/25/24 07/02/24 07/09/24 09:06 09:58 09:00 Wound Care Center Nurse 3 4-ABDOMEN INFERIOR -Ulcer Cleansing Rinsed/ Soap and Water Irrigated with Saline -Foul Odor after Cleansing No -Primary Dressing Applied Aquacel Extra Aquacel Extra, NonAdherent Contact Layer -Other Dressing ABD -Primary Dressing Covered/Secured with Dry Gauze, Dry Gauze, Dry Gauze, Secured with Secured with Secured with Tape Tape Tape -Aquacel Extra 1 1 1 -Wound Comment(s) vaseline around the wound and than skin prep and aquacel extra and adaptic and an abd 3-ABDOMEN SUPERIOR -Ulcer Cleansing Rinsed/ Soap and Water Irrigated with Saline -Foul Odor after Cleansing No -Primary Dressing Applied Aquacel Extra NonAdherent Contact Layer -Other Dressing Aquacel EX -Primary Dressing Covered/Secured with Dry Gauze, Dry Gauze, Secured with Secured with Tape Tape -Other Covering ABD -Aquacel Extra 0 Treatment Response Procedure Tolerated Well Pain Scale: 0-10 Numeric Is Patient Pain Free? Yes Yes Yes WC - Visit Discharge Discharge Condition Stable Stable Ambulatory Status Ambulatory Ambulatory Transportation Private Auto Private Auto Clinical Summary of Care Provided Yes 07/23/24 09:29 Wound Care Center Nurse 3 4-ABDOMEN INFERIOR -Ulcer Cleansing -Foul Odor after Cleansing -Primary Dressing Applied Aquacel Extra, NonAdherent Contact Layer -Other Dressing abd -Primary Dressing Covered/Secured with Secured with Tape -Aquacel Extra 1 -Wound Comment(s) 3-ABDOMEN SUPERIOR -Ulcer Cleansing -Foul Odor after Cleansing -Primary Dressing Applied Aquacel Extra, NonAdherent Contact Layer -Other Dressing -Primary Dressing Covered/Secured with -Other Covering -Aquacel Extra 0 Treatment Response Pain Scale: 0-10 Numeric Is Patient Pain Free? Yes WC - Visit Discharge Discharge Condition Stable Ambulatory Status Ambulatory Transportation Private Auto Clinical Summary of Care Provided Additional Wound Wound debrided: Abdomen (inferior) Type of Debridement: Excisional debridement Depth: Down to and including healthy tissue and in the subcutaneous layer Percentage of wound debrided: 100 Instrument Used: 3mm curette Tissue Removed: Slough and devitalized tissue Severity: Fat Layer Exposed Amount of bleeding with debridement: Mild Bleeding Controlled with: Pressure Patient tolerated procedure: Patient tolerated procedure well Assessment/Plan Assessment/Plan (1) Non-healing surgical wound: CODE(S): T81.89XA - Other complications of procedures, not elsewhere classified, initial encounter QUALIFIERS: Encounter type: subsequent encounter Qualified Code(s): T81.89XD - Other complications of procedures, not elsewhere classified, subsequent encounter (2) Type 2 diabetes mellitus: CODE(S): E11.9 - Type 2 diabetes mellitus without complications QUALIFIERS: Diabetes mellitus ad terminal makeup operator insulin use: without ad terminal makeup operator use Diabetes mellitus complication status: with skin complications Diabetes mellitus complication detail: with other skin complication Qualified Code(s): E11.628 - Type 2 diabetes mellitus with other skin complications (3) History of colostomy reversal: CODE(S): Z98.890 - Other specified postprocedural states (4) Surgical wound breakdown: CODE(S): T81.31XA - Disruption of external operation (surgical) wound, not elsewhere classified, initial encounter QUALIFIERS: Encounter type: subsequent encounter Qualified Code(s): T81.31XD - Disruption of external operation (surgical) wound, not elsewhere classified, subsequent encounter (5) Localized swelling of abdominal wall: CODE(S): R22.2 - Localized swelling, mass and lump, trunk (6) Skin ulcer of abdomen with fat layer exposed: CODE(S): L98.492 - Non-pressure chronic ulcer of skin of other sites with fat layer exposed PLAN: Plan Debridement done as documented above, procedure was well-tolerated. Inferior area with good improvement since his last visit. Superior with no significant change. Good granulation however no change in size. In the past, had done remarkably well with a skin substitute however, this has been denied by his insurance. Chronic abdominal postsurgical wound/chronic ulcer. I believe he would benefit from a skin substitute considering that he had done well on 1 in the past. This was a sample. His blood glucose readings have also not been well-controlled, was seen in the office yesterday and additional dose of insulin was added to his regimen for better control. Hopefully, with a skin substitute and optimal diabetes control healing is achieved. Will attempt to apply again for skin substitute. If this is not improved, will refer to plastic surgery to consider graft closure. For now continue Aquacel extra daily to twice daily depending on drainage. Cover with Adaptic and gauze. Continue other chronic wound care management. Moisturize skin adequately. Adequate protein intake and optimized diabetes control also recommended. His questions were answered and he was advised to let us know if he has any further questions or concerns. Follow- up in 1 week. This note was generated with [employer]ation software. It may contain incorrect words, spelling, and punctuation that were not noted in checking the note before signing.
== END 2024-07-25 23:59 | disposition home or self-care (01) ==
LOC: WC 08:30
PROVIDERS: PCP Internal Medicine; Referring Provider Internal Medicine; Visit Provider Internal Medicine
DX: E11.628 Type 2 diabetes mellitus with other skin complications (principal); L98.492 Non-pressure chronic ulcer of skin of other sites with fat layer exposed; R22.2 Localized swelling, mass and lump, trunk; Z98.890 Other specified postprocedural states; T81.89XD Other complications of procedures, not elsewhere classified, subsequent encounter; T81.31XD Disruption of external operation (surgical) wound, not elsewhere classified, subsequent encounter
CPT/HCPCS: 11042

== ENCOUNTER 2024-08-17 08:15 | Outpatient (RCR) | payer OTHER, SELFPAY ==
[2024-07-26 00:10] VITALS: BP 167/87; PULSE 86; RESP 18; TEMP 36.6; BMI 36.9
[2024-07-30 08:54] VITALS: BP 156/86; PULSE 75; RESP 18; TEMP 36.2; BMI 36.9
[2024-08-06 08:31] VITALS: BP 144/88; PULSE 79; RESP 18; TEMP 36; BMI 36.9
[2024-08-13 09:40] VITALS: BP 146/77; PULSE 84; RESP 18; TEMP 36.4; BMI 36.9
[2024-08-17 08:19] VITALS: BP 143/86; PULSE 89; RESP 19; TEMP 36.8; BMI 36.9
== END 2024-08-24 23:59 | disposition home or self-care (01) ==
LOC: WC 08:15
PROVIDERS: PCP Internal Medicine; Referring Provider Internal Medicine; Visit Provider Internal Medicine
DX: T81.31XA Disruption of external operation (surgical) wound, not elsewhere classified, initial encounter (principal); E11.622 Type 2 diabetes mellitus with other skin ulcer; L98.492 Non-pressure chronic ulcer of skin of other sites with fat layer exposed; Z79.4 Long term (current) use of insulin; E11.65 Type 2 diabetes mellitus with hyperglycemia; I10 Essential (primary) hypertension; Z79.899 Other long term (current) drug therapy; Z86.16 Personal history of COVID-19
CPT/HCPCS: 11042; 99213; G0463

== ENCOUNTER → 2024-09-23 | Outpatient (CLI) | payer OTHER, SELFPAY ==
[2024-09-23 12:31] LABS: Hematocrit 42.2 % (40-54); Hemoglobin 13.9 g/dL (13.0-16.5); Immature Granulocytes Count 0.040 X10^3/uL (0.0-0.0); Mean Corp Hgb Conc 32.9 g/dL (32-36); Mean Corpuscular Volume 83.4 fL (80-94); Mean Platelet Vol. 10.3 fl (6.2-12.0); NRBC Flagged by Analyzer 0 % (0-5); Platelet Count 238 K/mm3 (150-450); RBC Distribution Width CV 13.7 % (11.6-14.6); RBC Distribution Width SD 41.6 fl (35.1-43.9); Red Blood Count 5.06 M/mm3 (4.6-6.2); White Blood Count 8.6 K/mm3 (4.4-11.0)
[2024-09-23 13:32] LABS: AST(SGOT) 25 U/L (<=37); Alanine Aminotransfer ALT/SGPT 35 U/L (<=46); Albumin, Serum 4.4 g/dL (3.4-4.8); Alkaline Phosphatase 69 U/L (40-129); Anion Gap 13 (5-15); BUN 16 mg/dL (4-19); BUN/Creat Ratio 20.8 RATIO (10-20); Calcium,Total 9.5 mg/dL (7.6-11.0); Carbon Dioxide 25.2 mmol/L (21.0-32.0); Chloride 101 mmol/L (98-108); Cholesterol 162 mg/dL (<=200); Globulin 3.3 g/dL (2.2-4.2); Glucose 127 mg/dL (70-99); Low Density Lipoprotein Calc. 87 mg/dL; PSA,Total - Annual Screen 2.27 ng/mL (0.02-4.00); Potassium 3.8 mmol/L (3.3-5.1); Triglycerides 172 mg/dL; Very Low Density Lipoprotein 34 mg/dL (5-40); cholesterol:hdl ratio screen 3.99
== END | disposition home or self-care (01) ==
LOC: BIMLAB 08:02
PROVIDERS: PCP Internal Medicine; Referring Provider Internal Medicine; Visit Provider Internal Medicine
DX: I10 Essential (primary) hypertension (principal); E11.628 Type 2 diabetes mellitus with other skin complications; Z12.5 Encounter for screening for malignant neoplasm of prostate
CPT/HCPCS: 36415; 80053; 80061; 84153; 85025; G0103

== ENCOUNTER 2024-09-24 08:00 | Outpatient (RCR) | payer OTHER, SELFPAY ==
[2024-08-27 09:04] VITALS: BP 142/96; PULSE 83; RESP 18; TEMP 36.6
--- NOTE | 2024-08-27 11:19 | PCM.WC.PN ---
History of Present Illness Date of Service: 08/27/24 Chief Complaint: Non healing surgical wound History of Wound: Mr. Duque is a 63 yo being managed for surgical wound break down. Has been seen here since September 2023, 1 month after colostomy reversal. Progress of Wound: Was seen by plastic surgery last week for consultation on delayed wound healing/surgical closure however, continued wound care was recommended. Lately, he states that his blood glucose readings have been better with a fasting this morning at 114. No concerns for hypoglycemia. Feels well. Objective Data Objective Data Vital Signs: Vital Signs Temp Pulse Resp BP 98 F 83 18 142/96 H 08/27/24 09:04 08/27/24 09:04 08/27/24 09:04 08/27/24 09:04 Charges/Coding Procedures Integumentary 111xxx-113xx: [id number] Hannah subq tissue 20 sq cm/< Physical Exam Const alert, oriented x3 and no apparent distress General Appearance: cooperative, comfortable and well kempt HEENT normocephalic, head/scalp atraumatic and hearing grossly normal bilaterally Eyes EOMs intact bilaterally General Eye: normal appearance of both eyes Neck full ROM and supple General: normal visual inspection Resp normal respiratory effort Effort and Inspection: able to speak in complete sentences GI soft to palpation and non-tender Skin Wounds: wounds noted size Size: See clinical note, bed granulating well, margins well approximated and other, no odor, open and surrounding erythema Neuro oriented x3, CN's II-XII intact bilaterally, moves all extremities and no focal motor deficits Psych mental status grossly normal, thought process normal, cooperative and affect normal Debridement Note Debridement Note Wound debrided: Abdomen (superior) Anesthesia Used: 5% Lidocaine Gel Depth: Down to and including healthy tissue and in the subcutaneous layer Percentage of wound debrided: 100 Instrument Used: 5mm curette Tissue Removed: Slough and devitalized tissue Severity: Fat Layer Exposed Amount of bleeding with debridement: Mild Bleeding Controlled with: Pressure Patient tolerated procedure: Patient tolerated procedure well Post-Debridement Measurements and Additional Note: Post-Debridement Measurements/Treatment WC - Nurse 1 - General Ulcer Assessment Start: 08/27/24 09:04 Freq: Status: Active Protocol: [email or web address] Activity Type Activity Date Activity User E-sign Co-sign Detail Recorded Client Recorded Date Recorded By Document 08/27/24 09:04 [email or web address] [id number] 08/27/24 09:07 08/27/24 09:04 - Today's Visit Information Type of service Follow-up Visit (Physician/[facility] ) Arrival Mode Ambulatory Transfer Assistance None Patient Identification Verified (Name & Yes ) Patient Requires Transmission-Based No Precautions Vital Signs Temperature (97.8 F-99.1 F) 98 F Temperature Source Temporal Pulse Rate (60-100) 83 Pulse Location Monitor Respiratory Rate (12-18) 18 Respiratory rate source Observation Blood Pressure (90/60-120/80) 142/96 H Blood Pressure Mean (mm Hg) 111 Source Monitor Position Semi-Fowlers Blood Pressure Location Left Arm History Since Last Visit- (Skip if this is Patient's initial visit) Have you changed medications since your No last visit? Any new allergies or adverse reactions No Had a fall/change in ADL's that may No increase risk of falls Signs or symptoms of abuse and/or No neglect since last visit Have you been in the hospital since your No last visit? Has dressing in place as prescribed Yes Has compression in place as prescribed N/A Has offloadiing in place as prescribed N/A Experienced any changes in pain level or No management Pain Scale: 0-10 Numeric Is Patient Pain Free? Yes - Nurse 1 - General Ulcer Measurement Start: 08/27/24 09:04 Freq: Status: Active Protocol: Activity Type Activity Date Activity User E-sign Co-sign Detail Recorded Client Recorded Date Recorded By Document 08/27/24 09:04 [email or web address] [id number] 08/27/24 09:07 08/27/24 09:04 Wound Center Nurse 1 4-ABDOMEN INFERIOR -Combined with other wound No -Current Size (cm) - Length 1 -Current Size (cm) - Width 0.5 -Current Size (cm) - Depth 0.1 -Total Square Cm 0.5 -Photo Taken Yes -Tunneling No -Undermining/Tunneling No -Circular Undermining No -Exudate Amt Medium -Exudate Type Serosanguineous -Wound Margin Distinct, Outline Attached -Granulation Amt Medium (34-66%) -Granulation Quality [place] -Slough/Fibrin Yes -Necrosis Amt Medium (34-66%) -Necrotic Tissue Type Adherent Slough -Structure Exposed N/A -Texture (Matilde-wound Skin Appearance) Assessed, Scarring -Moisture (Matilde-wound Skin Appearance) Assessed -Color (Matilde-wound Skin Appearance) Assessed -Temperature (Matilde-wound Skin No Abnormality Appearance) (Pt Warm) -Tenderness on Palpation (Matilde-wound No Skin Appearance) -Ulcer Cleansing Wound Cleanser -Foul Odor after Cleansing No -Anesthetic Used 5% Lidocaine Gel 3-ABDOMEN SUPERIOR -Combined with other wound No -Current Size (cm) - Length 1.2 -Current Size (cm) - Width 1 -Current Size (cm) - Depth 0.1 -Total Square Cm 1.2 -Photo Taken Yes -Tunneling No -Undermining/Tunneling No -Circular Undermining No -Exudate Amt Medium -Exudate Type Serosanguineous -Wound Margin Distinct, Outline Attached -Granulation Amt Medium (34-66%) -Granulation Quality [place] -Slough/Fibrin Yes -Necrosis Amt Medium (34-66%) -Necrotic Tissue Type Adherent Slough -Structure Exposed N/A -Texture (Matilde-wound Skin Appearance) Assessed, Scarring -Moisture (Matilde-wound Skin Appearance) Assessed -Color (Matilde-wound Skin Appearance) Assessed -Temperature (Matilde-wound Skin No Abnormality Appearance) (Pt Warm) -Tenderness on Palpation (Matilde-wound No Skin Appearance) -Ulcer Cleansing Wound Cleanser -Foul Odor after Cleansing No -Anesthetic Used 5% Lidocaine Gel WC - Nurse 2 - General Ulcer CM Notes Start: 08/27/24 09:04 Freq: Status: Active Protocol: Activity Type Activity Date Activity User E-sign Co-sign Detail Recorded Client Recorded Date Recorded By Document 08/27/24 09:36 [id number] 08/27/24 09:40 08/27/24 09:36 Wound Center Nurse 2 4-ABDOMEN INFERIOR -Time 09:36 -Correct Patient Yes -Correct Side, Site, Position Yes -Correct Procedure Yes -Procedure Performed Yes -Type of Procedure Debridement -Clinical Debridement Subcutaneous -Tissue Removed Subcutaneous -Post Debridement (cm) - Length 1.0 -Post Debridement (cm) - Width 0.7 -Post Debridement (cm) - Depth 0.1 -Total Square (Post) (cm) 0.70 -Area of Debridement (cm) - Length 1.0 -Area of Debridement (cm) - Width 0.7 -Total Square (Area) (cm) 0.70 -Tunneling No -Undermining/Tunneling No -Circular Undermining No -Wound/Ulcer Outcome Not Healed -Ulcer Cleansing Rinsed/ Irrigated with Saline -Foul Odor after Cleansing No -Bioengineered Tissue No -Bleeding Controlled with Pressure -Treatment Response Procedure Tolerated Well -Offloading No -Debridement - Subq, 1st 20sq cm No 3-ABDOMEN SUPERIOR -Time 09:37 -Correct Patient Yes -Correct Side, Site, Position Yes -Correct Procedure Yes -Procedure Performed Yes -Type of Procedure Debridement -Clinical Debridement Subcutaneous -Tissue Removed Subcutaneous -Post Debridement (cm) - Length 1.5 -Post Debridement (cm) - Width 1.0 -Post Debridement (cm) - Depth 0.1 -Total Square (Post) (cm) 1.50 -Area of Debridement (cm) - Length 1.5 -Area of Debridement (cm) - Width 1.0 -Total Square (Area) (cm) 1.50 -Tunneling No -Undermining/Tunneling No -Circular Undermining No -Wound/Ulcer Outcome Not Healed -Ulcer Cleansing Rinsed/ Irrigated with Saline -Foul Odor after Cleansing No -Bioengineered Tissue No -Bleeding Controlled with Pressure -Treatment Response Procedure Tolerated Well -Offloading No -Debridement - Subq, 1st 20sq cm Yes Pain Scale: 0-10 Numeric Is Patient Pain Free? Yes - Nurse 3 - General Ulcer D/C NN Start: 08/27/24 09:04 Freq: Status: Active Protocol: Activity Type Activity Date Activity User E-sign Co-sign Detail Recorded Client Recorded Date Recorded By Document 08/27/24 09:54 RI [id number] 08/27/24 09:56 RI 08/27/24 09:54 Wound Care Center Nurse 3 4-ABDOMEN INFERIOR -Ulcer Cleansing Wound Cleanser -Primary Dressing Applied Aquacel Extra, Collagen Powder ,NonAdherent Contact Layer -Other Dressing ABD -Aquacel Extra 1 -Collagen Powder 1 3-ABDOMEN SUPERIOR -Ulcer Cleansing Wound Cleanser -Other Dressing collagen, aquacel extra, adaptic / ABD -Primary Dressing Covered/Secured with Secured with Tape Treatment Response Procedure Tolerated Well Pain Scale: 0-10 Numeric Is Patient Pain Free? Yes WC - Visit Discharge Discharge Condition Stable Ambulatory Status Ambulatory Transportation Private Auto Medication Reconcilliation completed & No provided to patient/care provider Clinical Summary of Care Provided Yes Additional Wound Wound debrided: Abdomen (inferior) Type of Debridement: Excisional debridement Anesthesia Used: 5% Lidocaine Gel Depth: Down to and including healthy tissue and in the subcutaneous layer Percentage of wound debrided: 100 Instrument Used: 3mm curette Tissue Removed: Slough and devitalized tissue Severity: Fat Layer Exposed Amount of bleeding with debridement: Mild Bleeding Controlled with: Pressure Patient tolerated procedure: Patient tolerated procedure well Assessment/Plan Assessment/Plan (1) Non-healing surgical wound: CODE(S): T81.89XA - Other complications of procedures, not elsewhere classified, initial encounter QUALIFIERS: Encounter type: subsequent encounter Qualified Code(s): T81.89XD - Other complications of procedures, not elsewhere classified, subsequent encounter (2) Type 2 diabetes mellitus: CODE(S): E11.9 - Type 2 diabetes mellitus without complications QUALIFIERS: Diabetes mellitus adjunct faculty for medical terminology insulin use: without mcfp use Diabetes mellitus complication status: with skin complications Diabetes mellitus complication detail: with other skin complication Qualified Code(s): E11.628 - Type 2 diabetes mellitus with other skin complications (3) History of colostomy reversal: CODE(S): Z98.890 - Other specified postprocedural states (4) Surgical wound breakdown: CODE(S): T81.31XA - Disruption of external operation (surgical) wound, not elsewhere classified, initial encounter QUALIFIERS: Encounter type: subsequent encounter Qualified Code(s): T81.31XD - Disruption of external operation (surgical) wound, not elsewhere classified, subsequent encounter (5) Localized swelling of abdominal wall: CODE(S): R22.2 - Localized swelling, mass and lump, trunk (6) Skin ulcer of abdomen with fat layer exposed: CODE(S): L98.492 - Non-pressure chronic ulcer of skin of other sites with fat layer exposed PLAN: Plan Debridement done as documented above, procedure was well-tolerated. Had a visit with plastic surgery last week and no recommendation for surgical closure was made at this time. Recommendation was to continue current wound care measures and if wound breakdown is noted, will be seen by both plastic and general surgery to address his issues. His blood glucose readings have been better as above, fasting this morning was at 114. Continue collagen powder, lightly moistened Aquacel extra daily to twice daily depending on drainage. Cover with Adaptic and gauze. Continue other chronic wound care management. Moisturize skin adequately. Adequate protein intake and optimized diabetes control also recommended. His questions were answered and he was advised to let us know if he has any further questions or concerns. Follow-up in a week or sooner if needed. This note was generated with [employer] software. It may contain incorrect words, spelling, and punctuation that were not noted in checking the note before signing.
--- NOTE | 2024-08-31 09:01 | WC ---
PHOTO 08/27/24 ABD IN[facility]
--- NOTE | 2024-08-31 09:05 | WC ---
PHOTO 08/27/24 ABNER COLEMAN
[2024-09-03 08:10] VITALS: BP 137/76; PULSE 74; RESP 18; TEMP 36
--- NOTE | 2024-09-03 08:40 | PN.PCM_ITS ---
History of Present Illness Date of Service: 09/03/24 Chief Complaint: Non healing surgical wound History of Wound: Mr. Duque is a 63 yo being managed for surgical wound break down. Has been seen here since September 2023, 1 month after colostomy reversal. Progress of Wound: No acute concerns at this time. Blood glucose readings have been a lot better lately with his fasting this morning at 112 and yesterday at 106. Denies increased drainage or pain. Objective Data Objective Data Vital Signs: Vital Signs Temp Pulse Resp BP O2 Del Method 96.8 F L 74 18 137/76 H Room Air 09/03/24 08:10 09/03/24 08:10 09/03/24 08:10 09/03/24 08:10 09/03/24 08:10 Oxygen Delivery Method Room Air Charges/Coding Procedures Integumentary 111xxx-113xx: [id number] Hannah subq tissue 20 sq cm/< Physical Exam Const alert, oriented x3 and no apparent distress General Appearance: cooperative, comfortable and well kempt HEENT normocephalic, head/scalp atraumatic and hearing grossly normal bilaterally Eyes EOMs intact bilaterally General Eye: normal appearance of both eyes Neck full ROM and supple General: normal visual inspection Resp normal respiratory effort Effort and Inspection: able to speak in complete sentences GI soft to palpation and non-tender Skin Wounds: wounds noted size Size: See clinical note, bed granulating well, margins well approximated and other, no odor, open and surrounding erythema Neuro oriented x3, CN's II-XII intact bilaterally, moves all extremities and no focal motor deficits Psych mental status grossly normal, thought process normal, cooperative and affect normal Debridement Note Debridement Note Wound debrided: Abdomen (superior) Type of Debridement: Excisional debridement Anesthesia Used: 5% Lidocaine Gel Depth: Down to and including healthy tissue Percentage of wound debrided: 100 Instrument Used: 5mm curette Tissue Removed: Slough and devitalized tissue Severity: Fat Layer Exposed Amount of bleeding with debridement: Mild Bleeding Controlled with: Calcium Alginate Patient tolerated procedure: Patient tolerated procedure well Post-Debridement Measurements and Additional Note: Post-Debridement Measurements/Treatment [id number] - Nurse 1 - General Ulcer Assessment Start: 08/27/24 09:04 Freq: Status: Active Protocol: JUSTIN Activity Type Activity Date Activity User E-sign Co-sign Detail Recorded Client Recorded Date Recorded By Document 08/27/24 09:04 RB [id number] 08/27/24 09:07 RB Document 09/03/24 08:10 KW [id number] 09/03/24 08:15 KW 08/27/24 09/03/24 09:04 08:10 - Today's Visit Information Type of service Follow-up Visit Follow-up Visit (Physician/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 AND BORING 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 (Physician/ADZING AND BORING 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 ) ) Arrival Mode Ambulatory Transfer Assistance None Patient Identification Verified (Name & Yes Yes ) Patient Requires Transmission-Based No Precautions Vital Signs Temperature (97.8 F-99.1 F) 98 F 96.8 F L Temperature Source Temporal Temporal Pulse Rate (60-100) 83 74 Pulse Location Monitor Monitor Respiratory Rate (12-18) 18 18 Respiratory rate source Observation Observation Oxygen Delivery Method Room Air Blood Pressure (90/60-120/80) 142/96 H 137/76 H Blood Pressure Mean (mm Hg) 111 96 Source Monitor Monitor Position Semi-Fowlers Sitting Blood Pressure Location Left Arm Left Arm History Since Last Visit- (Skip if this is Patient's initial visit) Have you changed medications since your No No last visit? Any new allergies or adverse reactions No No Had a fall/change in ADL's that may No No increase risk of falls Signs or symptoms of abuse and/or No No neglect since last visit Have you been in the hospital since your No No last visit? Has dressing in place as prescribed Yes Yes Has compression in place as prescribed N/A N/A Has offloadiing in place as prescribed N/A N/A Experienced any changes in pain level or No No management Left Footwear Regular Shoe Right Footwear Regular Shoe Pain Scale: 0-10 Numeric Is Patient Pain Free? Yes Yes - Nurse 1 - General Ulcer Measurement Start: 08/27/24 09:04 Freq: Status: Active Protocol: Activity Type Activity Date Activity User E-sign Co-sign Detail Recorded Client Recorded Date Recorded By Document 08/27/24 09:04 RB [id number] 08/27/24 09:07 RB Document 09/03/24 08:10 KW [id number] 09/03/24 08:15 KW 08/27/24 09/03/24 09:04 08:10 Wound Center Nurse 1 4-ABDOMEN INFERIOR -Combined with other wound No -Current Size (cm) - Length 1 1 -Current Size (cm) - Width 0.5 0.5 -Current Size (cm) - Depth 0.1 0.1 -Total Square Cm 0.5 0.5 -Date of Last Picture (Recall this 09/03/24 field) -Photo Taken Yes -Epithelialization Large 67-100% -Tunneling No -Undermining/Tunneling No -Circular Undermining No -Exudate Amt Medium Small -Exudate Type Serosanguineous Serosanguineous -Wound Margin Distinct, Distinct, Outline Outline Attached Attached -Granulation Amt Medium (34-66%) Large (67-100%) -Granulation Quality [place] -Slough/Fibrin Yes -Necrosis Amt Medium (34-66%) -Necrotic Tissue Type Adherent Slough -Structure Exposed N/A -Texture (Matilde-wound Skin Appearance) Assessed, Assessed, Scarring Scarring -Moisture (Matilde-wound Skin Appearance) Assessed Assessed -Color (Matilde-wound Skin Appearance) Assessed Assessed -Temperature (Matilde-wound Skin No Abnormality No Abnormality Appearance) (Pt Warm) (Pt Warm) -Tenderness on Palpation (Matilde-wound No No Skin Appearance) -Ulcer Cleansing Wound Cleanser Rinsed/ Irrigated with Saline -Foul Odor after Cleansing No No -Anesthetic Used 5% Lidocaine 5% Lidocaine Gel Gel 3-ABDOMEN SUPERIOR -Combined with other wound No -Current Size (cm) - Length 1.2 1 -Current Size (cm) - Width 1 0.5 -Current Size (cm) - Depth 0.1 0.1 -Total Square Cm 1.2 0.5 -Date of Last Picture (Recall this 09/03/24 field) -Photo Taken Yes -Epithelialization Large 67-100% -Tunneling No -Undermining/Tunneling No -Circular Undermining No -Exudate Amt Medium Small -Exudate Type Serosanguineous Serosanguineous -Wound Margin Distinct, Distinct, Outline Outline Attached Attached -Granulation Amt Medium (34-66%) Large (67-100%) -Granulation Quality [place],Red -Slough/Fibrin Yes -Necrosis Amt Medium (34-66%) -Necrotic Tissue Type Adherent Slough -Structure Exposed N/A -Texture (Matilde-wound Skin Appearance) Assessed, Assessed, Scarring Scarring -Moisture (Matilde-wound Skin Appearance) Assessed Assessed -Color (Matilde-wound Skin Appearance) Assessed Assessed -Temperature (Matilde-wound Skin No Abnormality No Abnormality Appearance) (Pt Warm) (Pt Warm) -Tenderness on Palpation (Matilde-wound No No Skin Appearance) -Ulcer Cleansing Wound Cleanser Rinsed/ Irrigated with Saline -Foul Odor after Cleansing No No -Anesthetic Used 5% Lidocaine 5% Lidocaine Gel Gel WC - Nurse 2 - General Ulcer CM Notes Start: 08/27/24 09:04 Freq: Status: Active Protocol: Activity Type Activity Date Activity User E-sign Co-sign Detail Recorded Client Recorded Date Recorded By Document 08/27/24 09:36 [id number] 08/27/24 09:40 Document 09/03/24 08:29 [id number] 09/03/24 08:34 08/27/24 09/03/24 09:36 08:29 Wound Center Nurse 2 4-ABDOMEN INFERIOR -Time 09:36 08:29 -Correct Patient Yes Yes -Correct Side, Site, Position Yes Yes -Correct Procedure Yes Yes -Procedure Performed Yes Yes -Type of Procedure Debridement Debridement -Clinical Debridement Subcutaneous Subcutaneous -Tissue Removed Subcutaneous Subcutaneous -Post Debridement (cm) - Length 1.0 1.1 -Post Debridement (cm) - Width 0.7 0.6 -Post Debridement (cm) - Depth 0.1 0.1 -Total Square (Post) (cm) 0.70 0.66 -Area of Debridement (cm) - Length 1.0 1.1 -Area of Debridement (cm) - Width 0.7 0.6 -Total Square (Area) (cm) 0.70 0.66 -Tunneling No No -Undermining/Tunneling No No -Circular Undermining No No -Wound/Ulcer Outcome Not Healed Not Healed -Ulcer Cleansing Rinsed/ Rinsed/ Irrigated with Irrigated with Saline Saline -Foul Odor after Cleansing No No -Bioengineered Tissue No No -Bleeding Controlled with Pressure Pressure -Treatment Response Procedure Procedure Tolerated Well Tolerated Well -Offloading No -Debridement - Subq, 1st 20sq cm No No 3-ABDOMEN SUPERIOR -Time 09:37 08:30 -Correct Patient Yes Yes -Correct Side, Site, Position Yes Yes -Correct Procedure Yes Yes -Procedure Performed Yes Yes -Type of Procedure Debridement Debridement -Clinical Debridement Subcutaneous Subcutaneous -Tissue Removed Subcutaneous Subcutaneous -Post Debridement (cm) - Length 1.5 1.1 -Post Debridement (cm) - Width 1.0 0.8 -Post Debridement (cm) - Depth 0.1 0.1 -Total Square (Post) (cm) 1.50 0.88 -Area of Debridement (cm) - Length 1.5 1.1 -Area of Debridement (cm) - Width 1.0 0.8 -Total Square (Area) (cm) 1.50 0.88 -Tunneling No No -Undermining/Tunneling No No -Circular Undermining No No -Wound/Ulcer Outcome Not Healed Not Healed -Ulcer Cleansing Rinsed/ Rinsed/ Irrigated with Irrigated with Saline Saline -Foul Odor after Cleansing No No -Bioengineered Tissue No No -Bleeding Controlled with Pressure Pressure -Treatment Response Procedure Procedure Tolerated Well Tolerated Well -Offloading No No -Debridement - Subq, 1st 20sq cm Yes Yes Pain Scale: 0-10 Numeric Is Patient Pain Free? Yes Yes - Nurse 3 - General Ulcer D/C NN Start: 08/27/24 09:04 Freq: Status: Active Protocol: Activity Type Activity Date Activity User E-sign Co-sign Detail Recorded Client Recorded Date Recorded By Document 08/27/24 09:54 VA [id number] 08/27/24 09:56 VA 08/27/24 09:54 Wound Care Center Nurse 3 4-ABDOMEN INFERIOR -Ulcer Cleansing Wound Cleanser -Primary Dressing Applied Aquacel Extra, Collagen Powder ,NonAdherent Contact Layer -Other Dressing ABD -Aquacel Extra 1 -Collagen Powder 1 3-ABDOMEN SUPERIOR -Ulcer Cleansing Wound Cleanser -Other Dressing collagen, aquacel extra, adaptic / ABD -Primary Dressing Covered/Secured with Secured with Tape Treatment Response Procedure Tolerated Well Pain Scale: 0-10 Numeric Is Patient Pain Free? Yes - Visit Discharge Discharge Condition Stable Ambulatory Status Ambulatory Transportation Private Auto Medication Reconcilliation completed & No provided to patient/care provider Clinical Summary of Care Provided Yes Additional Wound Wound debrided: Abdomen (inferior) Type of Debridement: Excisional debridement Depth: Down to and including healthy tissue and in the subcutaneous layer Percentage of wound debrided: 100 Instrument Used: 3mm curette Tissue Removed: Slough and devitalized tissue Severity: Fat Layer Exposed Amount of bleeding with debridement: Mild Bleeding Controlled with: Pressure Patient tolerated procedure: Patient tolerated procedure well Assessment/Plan Assessment/Plan (1) Non-healing surgical wound: CODE(S): T81.89XA - Other complications of procedures, not elsewhere classified, initial encounter QUALIFIERS: Encounter type: subsequent encounter Qualified Code(s): T81.89XD - Other complications of procedures, not elsewhere classified, subsequent encounter (2) Type 2 diabetes mellitus: CODE(S): E11.9 - Type 2 diabetes mellitus without complications QUALIFIERS: Diabetes mellitus custodial insulin use: without custodial use Diabetes mellitus complication status: with skin complications Diabetes mellitus complication detail: with other skin complication Qualified Code(s): E11.628 - Type 2 diabetes mellitus with other skin complications (3) History of colostomy reversal: CODE(S): Z98.890 - Other specified postprocedural states (4) Surgical wound breakdown: CODE(S): T81.31XA - Disruption of external operation (surgical) wound, not elsewhere classified, initial encounter QUALIFIERS: Encounter type: subsequent encounter Qualified Code(s): T81.31XD - Disruption of external operation (surgical) wound, not elsewhere classified, subsequent encounter (5) Localized swelling of abdominal wall: CODE(S): R22.2 - Localized swelling, mass and lump, trunk (6) Skin ulcer of abdomen with fat layer exposed: CODE(S): L98.492 - Non-pressure chronic ulcer of skin of other sites with fat layer exposed PLAN: Plan Debridement done as documented above, procedure was well-tolerated. Improving/stable. No acute concerns at this time. Continues to show better blood glucose control, numbers as above. Continue collagen powder, lightly moistened Aquacel extra daily to twice daily depending on drainage. Cover with Adaptic and gauze. Continue other chronic wound care management. Moisturize skin adequately. Adequate protein intake and optimized diabetes control also commended. His questions were answered and he was advised to let us know if he has any further questions or concerns. Follow-up in a week or sooner if needed. This note was generated with [employer] dictation software. It may contain incorrect words, spelling, and punctuation that were not noted in checking the note before signing.
--- NOTE | 2024-09-04 10:03 | WC ---
PHOTO 09/03/24 ABD
[2024-09-10 08:46] VITALS: BP 159/95; PULSE 80; RESP 16; TEMP 37
--- NOTE | 2024-09-10 09:33 | PN.PCM_ITS ---
History of Present Illness Date of Service: 09/10/24 Chief Complaint: Non healing surgical wound History of Wound: Mr. Duque is a 63 yo being managed for surgical wound break down. Has been seen here since September 2023, 1 month after colostomy reversal. Progress of Wound: No acute concerns at this time. Stable blood glucose readings. Doing dressing changes as recommended. Objective Data Objective Data Vital Signs: Vital Signs Temp Pulse Resp BP O2 Del Method 98.6 F 80 16 159/95 H Room Air 09/10/24 08:46 09/10/24 08:46 09/10/24 08:46 09/10/24 08:46 09/03/24 08:10 Oxygen Delivery Method Room Air Charges/Coding Procedures Integumentary 111xxx-113xx: [id number] Hannah subq tissue 20 sq cm/< Physical Exam Const alert, oriented x3 and no apparent distress General Appearance: cooperative, comfortable and well kempt HEENT normocephalic, head/scalp atraumatic and hearing grossly normal bilaterally Eyes EOMs intact bilaterally General Eye: normal appearance of both eyes Neck full ROM and supple General: normal visual inspection Resp normal respiratory effort Effort and Inspection: able to speak in complete sentences GI soft to palpation and non-tender Skin Wounds: wounds noted size Size: See clinical note, bed granulating well, margins well approximated and other, no odor, open and surrounding erythema Neuro oriented x3, CN's II-XII intact bilaterally, moves all extremities and no focal motor deficits Psych mental status grossly normal, thought process normal, cooperative and affect normal Debridement Note Debridement Note Wound debrided: Abdomen (superior) Type of Debridement: Excisional debridement Depth: Down to and including healthy tissue and in the subcutaneous layer Percentage of wound debrided: 100 Instrument Used: 5mm curette Severity: Fat Layer Exposed Amount of bleeding with debridement: Mild Bleeding Controlled with: Pressure Patient tolerated procedure: Patient tolerated procedure well Post-Debridement Measurements and Additional Note: Post-Debridement Measurements/Treatment WC - Nurse 1 - General Ulcer Assessment Start: 08/27/24 09:04 Freq: Status: Active Protocol: JUSTIN Activity Type Activity Date Activity User E-sign Co-sign Detail Recorded Client Recorded Date Recorded By Document 08/27/24 09:04 RB [id number] 08/27/24 09:07 RB Document 09/03/24 08:10 [id number] 09/03/24 08:15 KW Document 09/10/24 08:46 JF [id number] 09/10/24 08:50 JF 08/27/24 09/03/24 09/10/24 09:04 08:10 08:46 - Today's Visit Information Type of service Follow-up Visit Follow-up Visit Follow-up Visit (Physician/GIS TECHNICIAN (Physician/GIS TECHNICIAN (Physician/GIS TECHNICIAN ) ) ) Arrival Mode Ambulatory Ambulatory Transfer Assistance None Patient Identification Verified (Name & Yes Yes Yes ) Patient Requires Transmission-Based No No Precautions Vital Signs Temperature (97.8 F-99.1 F) 98 F 96.8 F L 98.6 F Temperature Source Temporal Temporal Temporal Pulse Rate (60-100) 83 74 80 Pulse Location Monitor Monitor Monitor Respiratory Rate (12-18) 18 18 16 Respiratory rate source Observation Observation Observation Oxygen Delivery Method Room Air Blood Pressure (90/60-120/80) 142/96 H 137/76 H 159/95 H Blood Pressure Mean (mm Hg) 111 96 116 Source Monitor Monitor Monitor Position Semi-Fowlers Sitting Semi-Fowlers Blood Pressure Location Left Arm Left Arm Left Arm History Since Last Visit- (Skip if this is Patient's initial visit) Have you changed medications since your No No Yes last visit? Any new allergies or adverse reactions No No No Had a fall/change in ADL's that may No No No increase risk of falls Signs or symptoms of abuse and/or No No No neglect since last visit Have you been in the hospital since your No No No last visit? Has dressing in place as prescribed Yes Yes Yes Has compression in place as prescribed N/A N/A N/A Has offloadiing in place as prescribed N/A N/A N/A Experienced any changes in pain level or No No No management Left Footwear Regular Shoe Regular Shoe Right Footwear Regular Shoe Regular Shoe Pain Scale: 0-10 Numeric Is Patient Pain Free? Yes Yes Yes - Nurse 1 - General Ulcer Measurement Start: 08/27/24 09:04 Freq: Status: Active Protocol: Activity Type Activity Date Activity User E-sign Co-sign Detail Recorded Client Recorded Date Recorded By Document 08/27/24 09:04 RB [id number] 08/27/24 09:07 RB Document 09/03/24 08:10 KW [id number] 09/03/24 08:15 KW Document 09/10/24 08:46 [id number] 09/10/24 08:50 JF 08/27/24 09/03/24 09/10/24 09:04 08:10 08:46 Wound Center Nurse 1 4-ABDOMEN INFERIOR -Combined with other wound No No -Current Size (cm) - Length 1 1 0.3 -Current Size (cm) - Width 0.5 0.5 0.3 -Current Size (cm) - Depth 0.1 0.1 0.1 -Total Square Cm 0.5 0.5 0.09 -Date of Last Picture (Recall this 09/03/24 field) -Photo Taken Yes Yes -Epithelialization Large 67-100% Large 67-100% -Tunneling No No -Undermining/Tunneling No No -Circular Undermining No No -Exudate Amt Medium Small Small -Exudate Type Serosanguineous Serosanguineous Serosanguineous -Wound Margin Distinct, Distinct, Flat & Intact Outline Outline Attached Attached -Granulation Amt Medium (34-66%) Large (67-100%) None Present (0 %) -Granulation Quality [place],Red Pale -Slough/Fibrin Yes Yes -Necrosis Amt Medium (34-66%) Small (1-33%) -Necrotic Tissue Type Adherent Slough Adherent Slough -Structure Exposed N/A N/A -Texture (Matilde-wound Skin Appearance) Assessed, Assessed, Assessed, Scarring Scarring Scarring -Moisture (Matilde-wound Skin Appearance) Assessed Assessed Assessed,Dry/ Scaly -Color (Matilde-wound Skin Appearance) Assessed Assessed Assessed -Temperature (Matilde-wound Skin No Abnormality No Abnormality No Abnormality Appearance) (Pt Warm) (Pt Warm) (Pt Warm) -Tenderness on Palpation (Matilde-wound No No No Skin Appearance) -Ulcer Cleansing Wound Cleanser Rinsed/ Rinsed/ Irrigated with Irrigated with Saline Saline -Foul Odor after Cleansing No No No -Anesthetic Used 5% Lidocaine 5% Lidocaine 5% Lidocaine Gel Gel Gel 3-ABDOMEN SUPERIOR -Combined with other wound No No -Current Size (cm) - Length 1.2 1 0.5 -Current Size (cm) - Width 1 0.5 0.6 -Current Size (cm) - Depth 0.1 0.1 0.1 -Total Square Cm 1.2 0.5 0.30 -Date of Last Picture (Recall this 09/03/24 field) -Photo Taken Yes Yes -Epithelialization Large 67-100% Large 67-100% -Tunneling No No -Undermining/Tunneling No No -Circular Undermining No No -Exudate Amt Medium Small Small -Exudate Type Serosanguineous Serosanguineous Serosanguineous -Wound Margin Distinct, Distinct, Flat & Intact Outline Outline Attached Attached -Granulation Amt Medium (34-66%) Large (67-100%) Medium (34-66%) -Granulation Quality [place] -Slough/Fibrin Yes Yes -Necrosis Amt Medium (34-66%) Small (1-33%) -Necrotic Tissue Type Adherent Slough Adherent Slough -Structure Exposed N/A N/A -Texture (Matilde-wound Skin Appearance) Assessed, Assessed, Assessed, Scarring Scarring Scarring -Moisture (Matilde-wound Skin Appearance) Assessed Assessed No Abnormality -Color (Matilde-wound Skin Appearance) Assessed Assessed No Abnormality -Temperature (Matilde-wound Skin No Abnormality No Abnormality No Abnormality Appearance) (Pt Warm) (Pt Warm) (Pt Warm) -Tenderness on Palpation (Matilde-wound No No No Skin Appearance) -Ulcer Cleansing Wound Cleanser Rinsed/ Rinsed/ Irrigated with Irrigated with Saline Saline -Foul Odor after Cleansing No No No -Anesthetic Used 5% Lidocaine 5% Lidocaine 5% Lidocaine Gel Gel Gel Lower Limb Edema Present NA WC - Nurse 2 - General Ulcer CM Notes Start: 08/27/24 09:04 Freq: Status: Active Protocol: Activity Type Activity Date Activity User E-sign Co-sign Detail Recorded Client Recorded Date Recorded By Document 08/27/24 09:36 [id number] 08/27/24 09:40 Document 09/03/24 08:29 GM [id number] 09/03/24 08:34 GM Document 09/10/24 09:21 DS [id number] 09/10/24 09:26 DS 08/27/24 09/03/24 09/10/24 09:36 08:29 09:21 Wound Center Nurse 2 4-ABDOMEN INFERIOR -Time 09:36 08:29 09:21 -Correct Patient Yes Yes Yes -Correct Side, Site, Position Yes Yes Yes -Correct Procedure Yes Yes Yes -Procedure Performed Yes Yes Yes -Type of Procedure Debridement Debridement Debridement -Clinical Debridement Subcutaneous Subcutaneous Subcutaneous -Tissue Removed Subcutaneous Subcutaneous Subcutaneous -Post Debridement (cm) - Length 1.0 1.1 1.2 -Post Debridement (cm) - Width 0.7 0.6 0.8 -Post Debridement (cm) - Depth 0.1 0.1 0.1 -Total Square (Post) (cm) 0.70 0.66 0.96 -Area of Debridement (cm) - Length 1.0 1.1 1.2 -Area of Debridement (cm) - Width 0.7 0.6 0.8 -Total Square (Area) (cm) 0.70 0.66 0.96 -Tunneling No No No -Undermining/Tunneling No No No -Circular Undermining No No No -Wound/Ulcer Outcome Not Healed Not Healed Not Healed -Ulcer Cleansing Rinsed/ Rinsed/ Rinsed/ Irrigated with Irrigated with Irrigated with Saline Saline Saline -Foul Odor after Cleansing No No No -Bioengineered Tissue No No No -Bleeding Controlled with Pressure Pressure Pressure -Treatment Response Procedure Procedure Procedure Tolerated Well Tolerated Well Tolerated Well -Offloading No -Debridement - Subq, 1st 20sq cm No No Yes 3-ABDOMEN SUPERIOR -Time 09:37 08:30 09:21 -Correct Patient Yes Yes Yes -Correct Side, Site, Position Yes Yes Yes -Correct Procedure Yes Yes Yes -Procedure Performed Yes Yes Yes -Type of Procedure Debridement Debridement Debridement -Clinical Debridement Subcutaneous Subcutaneous Subcutaneous -Tissue Removed Subcutaneous Subcutaneous Subcutaneous -Post Debridement (cm) - Length 1.5 1.1 1.0 -Post Debridement (cm) - Width 1.0 0.8 0.7 -Post Debridement (cm) - Depth 0.1 0.1 0.1 -Total Square (Post) (cm) 1.50 0.88 0.70 -Area of Debridement (cm) - Length 1.5 1.1 1.0 -Area of Debridement (cm) - Width 1.0 0.8 0.7 -Total Square (Area) (cm) 1.50 0.88 0.70 -Tunneling No No No -Undermining/Tunneling No No No -Circular Undermining No No No -Wound/Ulcer Outcome Not Healed Not Healed Not Healed -Ulcer Cleansing Rinsed/ Rinsed/ Rinsed/ Irrigated with Irrigated with Irrigated with Saline Saline Saline -Foul Odor after Cleansing No No No -Bioengineered Tissue No No No -Bleeding Controlled with Pressure Pressure Pressure -Treatment Response Procedure Procedure Procedure Tolerated Well Tolerated Well Tolerated Well -Offloading No No -Debridement - Subq, 1st 20sq cm Yes Yes No Pain Scale: 0-10 Numeric Is Patient Pain Free? Yes Yes Yes - Nurse 3 - General Ulcer D/C NN Start: 08/27/24 09:04 Freq: Status: Active Protocol: Activity Type Activity Date Activity User E-sign Co-sign Detail Recorded Client Recorded Date Recorded By Document 08/27/24 09:54 MT [id number] 08/27/24 09:56 MT Document 09/03/24 08:42 DS [id number] 09/03/24 08:44 DS 08/27/24 09/03/24 09:54 08:42 Wound Care Center Nurse 3 4-ABDOMEN INFERIOR -Ulcer Cleansing Wound Cleanser -Primary Dressing Applied Aquacel Extra, Aquacel Extra, Collagen Powder Collagen Powder ,NonAdherent ,NonAdherent Contact Layer Contact Layer -Other Dressing ABD abd pad - pts own collagen powder -Primary Dressing Covered/Secured with Secured with Tape -Aquacel Extra 1 0 -Collagen Powder 1 0 3-ABDOMEN SUPERIOR -Ulcer Cleansing Wound Cleanser -Primary Dressing Applied Aquacel Extra, Collagen Powder ,NonAdherent Contact Layer -Other Dressing collagen, abd pad - pts aquacel extra, own collagen adaptic / ABD powder -Primary Dressing Covered/Secured with Secured with Secured with Tape Tape -Aquacel Extra 1 -Collagen Powder 0 Treatment Response Procedure Tolerated Well Pain Scale: 0-10 Numeric Is Patient Pain Free? Yes Yes - Visit Discharge Discharge Condition Stable Stable Ambulatory Status Ambulatory Ambulatory Transportation Private Auto Private Auto Medication Reconcilliation completed & No provided to patient/care provider Clinical Summary of Care Provided Yes Additional Wound Wound debrided: Abdomen (inferior) Type of Debridement: Excisional debridement Depth: Down to and including healthy tissue and in the subcutaneous layer Percentage of wound debrided: 100 Instrument Used: 3mm curette Severity: Fat Layer Exposed Amount of bleeding with debridement: Mild Bleeding Controlled with: Pressure Patient tolerated procedure: Patient tolerated procedure well Assessment/Plan Assessment/Plan (1) Non-healing surgical wound: CODE(S): T81.89XA - Other complications of procedures, not elsewhere classified, initial encounter QUALIFIERS: Encounter type: subsequent encounter Qualified Code(s): T81.89XD - Other complications of procedures, not elsewhere classified, subsequent encounter (2) Type 2 diabetes mellitus: CODE(S): E11.9 - Type 2 diabetes mellitus without complications QUALIFIERS: Diabetes mellitus oysterman insulin use: without oysterman use Diabetes mellitus complication status: with skin complications Diabetes mellitus complication detail: with other skin complication Qualified Code(s): E11.628 - Type 2 diabetes mellitus with other skin complications (3) History of colostomy reversal: CODE(S): Z98.890 - Other specified postprocedural states (4) Surgical wound breakdown: CODE(S): T81.31XA - Disruption of external operation (surgical) wound, not elsewhere classified, initial encounter QUALIFIERS: Encounter type: subsequent encounter Qualified Code(s): T81.31XD - Disruption of external operation (surgical) wound, not elsewhere classified, subsequent encounter (5) Localized swelling of abdominal wall: CODE(S): R22.2 - Localized swelling, mass and lump, trunk (6) Skin ulcer of abdomen with fat layer exposed: CODE(S): L98.492 - Non-pressure chronic ulcer of skin of other sites with fat layer exposed PLAN: Plan Debridement done as documented above, procedure was well-tolerated. Improving/stable. No acute concerns at this time. Better blood glucose control. Continue collagen powder, lightly moistened Aquacel extra daily to twice daily depending on drainage. Cover with Adaptic and gauze. Continue other chronic wound care management. Moisturize skin adequately. Adequate protein intake and optimized diabetes control. He was advised to let us know if he had any further questions or concerns. Follow-up in a week or sooner if needed. This note was generated with [employer] dictation software. It may contain incorrect words, spelling, and punctuation that were not noted in checking the note before signing.
--- NOTE | 2024-09-14 09:07 | WC ---
PHOTO 09/10/24 SUP ABD
--- NOTE | 2024-09-14 09:14 | WC ---
PHOTO 09/10/24 [facility]
[2024-09-17 08:36] VITALS: BP 153/88; PULSE 83; RESP 18; TEMP 36.1
--- NOTE | 2024-09-17 09:20 | PCM.WC.PN ---
History of Present Illness Date of Service: 09/17/24 Chief Complaint: Non healing surgical wound History of Wound: Mr. Duque is a 63 yo being managed for surgical wound break down. Has been seen here since September 2023, 1 month after colostomy reversal. Progress of Wound: No acute concerns at this time. Improving. Grossly stable blood glucose readings with a fasting this morning at 126. He states that he had a high carb meal last night. Feels well otherwise. Objective Data Objective Data Vital Signs: Vital Signs Temp Pulse Resp BP O2 Del Method 97.0 F L 83 18 153/88 H Room Air 09/17/24 08:36 09/17/24 08:36 09/17/24 08:36 09/17/24 08:36 09/17/24 08:36 Oxygen Delivery Method Room Air Charges/Coding Procedures Integumentary 111xxx-113xx: [id number] Hannah subq tissue 20 sq cm/< Physical Exam Const alert, oriented x3 and no apparent distress General Appearance: cooperative, comfortable and well kempt HEENT normocephalic, head/scalp atraumatic and hearing grossly normal bilaterally Eyes EOMs intact bilaterally General Eye: normal appearance of both eyes Neck full ROM and supple General: normal visual inspection Resp normal respiratory effort Effort and Inspection: able to speak in complete sentences GI soft to palpation and non-tender Skin Wounds: wounds noted size Size: See clinical note, bed granulating well, margins well approximated and other, no odor, open and surrounding erythema Neuro oriented x3, CN's II-XII intact bilaterally, moves all extremities and no focal motor deficits Psych mental status grossly normal, thought process normal, cooperative and affect normal Debridement Note Debridement Note Wound debrided: Abdomen (superior) Type of Debridement: Excisional debridement Anesthesia Used: 5% Lidocaine Gel Depth: Down to and including healthy tissue and in the subcutaneous layer Percentage of wound debrided: 100 Instrument Used: 5mm curette Tissue Removed: Slough and devitalized tissue Severity: Fat Layer Exposed Amount of bleeding with debridement: Mild Bleeding Controlled with: Pressure Patient tolerated procedure: Patient tolerated procedure well Post-Debridement Measurements and Additional Note: Post-Debridement Measurements/Treatment [id number] - Nurse 1 - General Ulcer Assessment Start: 08/27/24 09:04 Freq: Status: Active Protocol: JUSTIN Activity Type Activity Date Activity User E-sign Co-sign Detail Recorded Client Recorded Date Recorded By Document 08/27/24 09:04 RB [id number] 08/27/24 09:07 RB Document 09/03/24 08:10 KW [id number] 09/03/24 08:15 KW Document 09/10/24 08:46 JF [id number] 09/10/24 08:50 JF Document 09/17/24 08:36 KW [id number] 09/17/24 08:41 KW 08/27/24 09/03/24 09/10/24 09:04 08:10 08:46 - Today's Visit Information Type of service Follow-up Visit Follow-up Visit Follow-up Visit (Physician/FIRE BEHAVIOR ANALYST (Physician/FIRE BEHAVIOR ANALYST (Physician/FIRE BEHAVIOR ANALYST ) ) ) Arrival Mode Ambulatory Ambulatory Transfer Assistance None Patient Identification Verified (Name & Yes Yes Yes ) Patient Requires Transmission-Based No No Precautions Vital Signs Temperature (97.8 F-99.1 F) 98 F 96.8 F L 98.6 F Temperature Source Temporal Temporal Temporal Pulse Rate (60-100) 83 74 80 Pulse Location Monitor Monitor Monitor Respiratory Rate (12-18) 18 18 16 Respiratory rate source Observation Observation Observation Oxygen Delivery Method Room Air Blood Pressure (90/60-120/80) 142/96 H 137/76 H 159/95 H Blood Pressure Mean (mm Hg) 111 96 116 Source Monitor Monitor Monitor Position Semi-Fowlers Sitting Semi-Fowlers Blood Pressure Location Left Arm Left Arm Left Arm History Since Last Visit- (Skip if this is Patient's initial visit) Have you changed medications since your No No Yes last visit? Any new allergies or adverse reactions No No No Had a fall/change in ADL's that may No No No increase risk of falls Signs or symptoms of abuse and/or No No No neglect since last visit Have you been in the hospital since your No No No last visit? Has dressing in place as prescribed Yes Yes Yes Has compression in place as prescribed N/A N/A N/A Has offloadiing in place as prescribed N/A N/A N/A Experienced any changes in pain level or No No No management Left Footwear Regular Shoe Regular Shoe Right Footwear Regular Shoe Regular Shoe Pain Scale: 0-10 Numeric Is Patient Pain Free? Yes Yes Yes 09/17/24 08:36 - Today's Visit Information Type of service Follow-up Visit (Physician/FIRE BEHAVIOR ANALYST ) Arrival Mode Ambulatory Transfer Assistance Patient Identification Verified (Name & Yes ) Patient Requires Transmission-Based Precautions Vital Signs Temperature (97.8 F-99.1 F) 97.0 F L Temperature Source Temporal Pulse Rate (60-100) 83 Pulse Location Monitor Respiratory Rate (12-18) 18 Respiratory rate source Observation Oxygen Delivery Method Room Air Blood Pressure (90/60-120/80) 153/88 H Blood Pressure Mean (mm Hg) 109 Source Monitor Position Sitting Blood Pressure Location Left Arm History Since Last Visit- (Skip if this is Patient's initial visit) Have you changed medications since your No last visit? Any new allergies or adverse reactions No Had a fall/change in ADL's that may No increase risk of falls Signs or symptoms of abuse and/or No neglect since last visit Have you been in the hospital since your No last visit? Has dressing in place as prescribed Yes Has compression in place as prescribed N/A Has offloadiing in place as prescribed N/A Experienced any changes in pain level or No management Left Footwear Regular Shoe Right Footwear Regular Shoe Pain Scale: 0-10 Numeric Is Patient Pain Free? Yes WC - Nurse 1 - General Ulcer Measurement Start: 08/27/24 09:04 Freq: Status: Active Protocol: Activity Type Activity Date Activity User E-sign Co-sign Detail Recorded Client Recorded Date Recorded By Document 08/27/24 09:04 RB [id number] 08/27/24 09:07 RB Document 09/03/24 08:10 KW [id number] 09/03/24 08:15 KW Document 09/10/24 08:46 [id number] 09/10/24 08:50 Document 09/17/24 08:36 KW [id number] 09/17/24 08:41 KW 08/27/24 09/03/24 09/10/24 09:04 08:10 08:46 Wound Center Nurse 1 4-ABDOMEN INFERIOR -Combined with other wound No No -Current Size (cm) - Length 1 1 0.3 -Current Size (cm) - Width 0.5 0.5 0.3 -Current Size (cm) - Depth 0.1 0.1 0.1 -Total Square Cm 0.5 0.5 0.09 -Date of Last Picture (Recall this 09/03/24 field) -Photo Taken Yes Yes -Epithelialization Large 67-100% Large 67-100% -Tunneling No No -Undermining/Tunneling No No -Circular Undermining No No -Exudate Amt Medium Small Small -Exudate Type Serosanguineous Serosanguineous Serosanguineous -Wound Margin Distinct, Distinct, Flat & Intact Outline Outline Attached Attached -Granulation Amt Medium (34-66%) Large (67-100%) None Present (0 %) -Granulation Quality Darrington Darrington,Red Pale -Slough/Fibrin Yes Yes -Necrosis Amt Medium (34-66%) Small (1-33%) -Necrotic Tissue Type Adherent Slough Adherent Slough -Structure Exposed N/A N/A -Texture (Matilde-wound Skin Appearance) Assessed, Assessed, Assessed, Scarring Scarring Scarring -Moisture (Matilde-wound Skin Appearance) Assessed Assessed Assessed,Dry/ Scaly -Color (Matilde-wound Skin Appearance) Assessed Assessed Assessed -Temperature (Matilde-wound Skin No Abnormality No Abnormality No Abnormality Appearance) (Pt Warm) (Pt Warm) (Pt Warm) -Tenderness on Palpation (Matilde-wound No No No Skin Appearance) -Ulcer Cleansing Wound Cleanser Rinsed/ Rinsed/ Irrigated with Irrigated with Saline Saline -Foul Odor after Cleansing No No No -Anesthetic Used 5% Lidocaine 5% Lidocaine 5% Lidocaine Gel Gel Gel 3-ABDOMEN SUPERIOR -Combined with other wound No No -Current Size (cm) - Length 1.2 1 0.5 -Current Size (cm) - Width 1 0.5 0.6 -Current Size (cm) - Depth 0.1 0.1 0.1 -Total Square Cm 1.2 0.5 0.30 -Date of Last Picture (Recall this 09/03/24 field) -Photo Taken Yes Yes -Epithelialization Large 67-100% Large 67-100% -Tunneling No No -Undermining/Tunneling No No -Circular Undermining No No -Exudate Amt Medium Small Small -Exudate Type Serosanguineous Serosanguineous Serosanguineous -Wound Margin Distinct, Distinct, Flat & Intact Outline Outline Attached Attached -Granulation Amt Medium (34-66%) Large (67-100%) Medium (34-66%) -Granulation Quality Darrington Darrington,Red Darrington -Slough/Fibrin Yes Yes -Necrosis Amt Medium (34-66%) Small (1-33%) -Necrotic Tissue Type Adherent Slough Adherent Slough -Structure Exposed N/A N/A -Texture (Matilde-wound Skin Appearance) Assessed, Assessed, Assessed, Scarring Scarring Scarring -Moisture (Matilde-wound Skin Appearance) Assessed Assessed No Abnormality -Color (Matilde-wound Skin Appearance) Assessed Assessed No Abnormality -Temperature (Matilde-wound Skin No Abnormality No Abnormality No Abnormality Appearance) (Pt Warm) (Pt Warm) (Pt Warm) -Tenderness on Palpation (Matilde-wound No No No Skin Appearance) -Ulcer Cleansing Wound Cleanser Rinsed/ Rinsed/ Irrigated with Irrigated with Saline Saline -Foul Odor after Cleansing No No No -Anesthetic Used 5% Lidocaine 5% Lidocaine 5% Lidocaine Gel Gel Gel Lower Limb Edema Present NA 09/17/24 08:36 Wound Center Nurse 1 4-ABDOMEN INFERIOR -Combined with other wound -Current Size (cm) - Length 0.6 -Current Size (cm) - Width 1 -Current Size (cm) - Depth 0.1 -Total Square Cm 0.6 -Date of Last Picture (Recall this 09/17/24 field) -Photo Taken -Epithelialization Large 67-100% -Tunneling -Undermining/Tunneling -Circular Undermining -Exudate Amt None Present -Exudate Type Serosanguineous -Wound Margin Indistinct, Non -Visible -Granulation Amt Large (67-100%) -Granulation Quality Darrington -Slough/Fibrin -Necrosis Amt -Necrotic Tissue Type -Structure Exposed -Texture (Matilde-wound Skin Appearance) Assessed, Scarring -Moisture (Matilde-wound Skin Appearance) Assessed -Color (Matilde-wound Skin Appearance) Assessed -Temperature (Matilde-wound Skin No Abnormality Appearance) (Pt Warm) -Tenderness on Palpation (Matilde-wound No Skin Appearance) -Ulcer Cleansing Rinsed/ Irrigated with Saline -Foul Odor after Cleansing No -Anesthetic Used 5% Lidocaine Gel 3-ABDOMEN SUPERIOR -Combined with other wound -Current Size (cm) - Length 0.3 -Current Size (cm) - Width 0.5 -Current Size (cm) - Depth 0.1 -Total Square Cm 0.15 -Date of Last Picture (Recall this 09/17/24 field) -Photo Taken -Epithelialization -Tunneling -Undermining/Tunneling -Circular Undermining -Exudate Amt None Present -Exudate Type -Wound Margin Indistinct, Non -Visible -Granulation Amt Small (1-33%) -Granulation Quality Red -Slough/Fibrin -Necrosis Amt -Necrotic Tissue Type -Structure Exposed -Texture (Matilde-wound Skin Appearance) Assessed -Moisture (Matilde-wound Skin Appearance) Assessed -Color (Matilde-wound Skin Appearance) Assessed -Temperature (Matilde-wound Skin No Abnormality Appearance) (Pt Warm) -Tenderness on Palpation (Matilde-wound No Skin Appearance) -Ulcer Cleansing Rinsed/ Irrigated with Saline -Foul Odor after Cleansing No -Anesthetic Used 5% Lidocaine Gel Lower Limb Edema Present WC - Nurse 2 - General Ulcer CM Notes Start: 08/27/24 09:04 Freq: Status: Active Protocol: Activity Type Activity Date Activity User E-sign Co-sign Detail Recorded Client Recorded Date Recorded By Document 08/27/24 09:36 GM [id number] 08/27/24 09:40 GM Document 09/03/24 08:29 GM [id number] 09/03/24 08:34 GM Document 09/10/24 09:21 DS [id number] 09/10/24 09:26 DS Document 09/17/24 09:10 DS [id number] 09/17/24 09:13 DS 08/27/24 09/03/24 09/10/24 09:36 08:29 09:21 Wound Center Nurse 2 4-ABDOMEN INFERIOR -Time 09:36 08:29 09:21 -Correct Patient Yes Yes Yes -Correct Side, Site, Position Yes Yes Yes -Correct Procedure Yes Yes Yes -Procedure Performed Yes Yes Yes -Type of Procedure Debridement Debridement Debridement -Clinical Debridement Subcutaneous Subcutaneous Subcutaneous -Tissue Removed Subcutaneous Subcutaneous Subcutaneous -Post Debridement (cm) - Length 1.0 1.1 1.2 -Post Debridement (cm) - Width 0.7 0.6 0.8 -Post Debridement (cm) - Depth 0.1 0.1 0.1 -Total Square (Post) (cm) 0.70 0.66 0.96 -Area of Debridement (cm) - Length 1.0 1.1 1.2 -Area of Debridement (cm) - Width 0.7 0.6 0.8 -Total Square (Area) (cm) 0.70 0.66 0.96 -Tunneling No No No -Undermining/Tunneling No No No -Circular Undermining No No No -Wound/Ulcer Outcome Not Healed Not Healed Not Healed -Ulcer Cleansing Rinsed/ Rinsed/ Rinsed/ Irrigated with Irrigated with Irrigated with Saline Saline Saline -Foul Odor after Cleansing No No No -Bioengineered Tissue No No No -Bleeding Controlled with Pressure Pressure Pressure -Treatment Response Procedure Procedure Procedure Tolerated Well Tolerated Well Tolerated Well -Offloading No -Debridement - Subq, 1st 20sq cm No No Yes 3-ABDOMEN SUPERIOR -Time 09:37 08:30 09:21 -Correct Patient Yes Yes Yes -Correct Side, Site, Position Yes Yes Yes -Correct Procedure Yes Yes Yes -Procedure Performed Yes Yes Yes -Type of Procedure Debridement Debridement Debridement -Clinical Debridement Subcutaneous Subcutaneous Subcutaneous -Tissue Removed Subcutaneous Subcutaneous Subcutaneous -Post Debridement (cm) - Length 1.5 1.1 1.0 -Post Debridement (cm) - Width 1.0 0.8 0.7 -Post Debridement (cm) - Depth 0.1 0.1 0.1 -Total Square (Post) (cm) 1.50 0.88 0.70 -Area of Debridement (cm) - Length 1.5 1.1 1.0 -Area of Debridement (cm) - Width 1.0 0.8 0.7 -Total Square (Area) (cm) 1.50 0.88 0.70 -Tunneling No No No -Undermining/Tunneling No No No -Circular Undermining No No No -Wound/Ulcer Outcome Not Healed Not Healed Not Healed -Ulcer Cleansing Rinsed/ Rinsed/ Rinsed/ Irrigated with Irrigated with Irrigated with Saline Saline Saline -Foul Odor after Cleansing No No No -Bioengineered Tissue No No No -Bleeding Controlled with Pressure Pressure Pressure -Treatment Response Procedure Procedure Procedure Tolerated Well Tolerated Well Tolerated Well -Offloading No No -Debridement - Subq, 1st 20sq cm Yes Yes No Pain Scale: 0-10 Numeric Is Patient Pain Free? Yes Yes Yes 09/17/24 09:10 Wound Center Nurse 2 4-ABDOMEN INFERIOR -Time 09:10 -Correct Patient Yes -Correct Side, Site, Position Yes -Correct Procedure Yes -Procedure Performed Yes -Type of Procedure Debridement -Clinical Debridement Subcutaneous -Tissue Removed Subcutaneous -Post Debridement (cm) - Length 1.1 -Post Debridement (cm) - Width 0.9 -Post Debridement (cm) - Depth 0.1 -Total Square (Post) (cm) 0.99 -Area of Debridement (cm) - Length 1.1 -Area of Debridement (cm) - Width 0.9 -Total Square (Area) (cm) 0.99 -Tunneling No -Undermining/Tunneling No -Circular Undermining No -Wound/Ulcer Outcome Not Healed -Ulcer Cleansing Rinsed/ Irrigated with Saline -Foul Odor after Cleansing No -Bioengineered Tissue No -Bleeding Controlled with Pressure -Treatment Response Procedure Tolerated Well -Offloading -Debridement - Subq, 1st 20sq cm Yes 3-ABDOMEN SUPERIOR -Time 09:10 -Correct Patient Yes -Correct Side, Site, Position Yes -Correct Procedure Yes -Procedure Performed Yes -Type of Procedure Debridement -Clinical Debridement Subcutaneous -Tissue Removed Subcutaneous -Post Debridement (cm) - Length 0.8 -Post Debridement (cm) - Width 0.7 -Post Debridement (cm) - Depth 0.1 -Total Square (Post) (cm) 0.56 -Area of Debridement (cm) - Length 0.8 -Area of Debridement (cm) - Width 0.7 -Total Square (Area) (cm) 0.56 -Tunneling No -Undermining/Tunneling No -Circular Undermining No -Wound/Ulcer Outcome Not Healed -Ulcer Cleansing Rinsed/ Irrigated with Saline -Foul Odor after Cleansing No -Bioengineered Tissue No -Bleeding Controlled with Pressure -Treatment Response Procedure Tolerated Well -Offloading -Debridement - Subq, 1st 20sq cm No Pain Scale: 0-10 Numeric Is Patient Pain Free? Yes WC - Nurse 3 - General Ulcer D/C NN Start: 08/27/24 09:04 Freq: Status: Active Protocol: Activity Type Activity Date Activity User E-sign Co-sign Detail Recorded Client Recorded Date Recorded By Document 08/27/24 09:54 MT [id number] 08/27/24 09:56 WI Document 09/03/24 08:42 DS [id number] 09/03/24 08:44 DS Document 09/10/24 09:36 JF [id number] 09/10/24 09:38 08/27/24 09/03/24 09/10/24 09:54 08:42 09:36 Wound Care Center Nurse 3 4-ABDOMEN INFERIOR -Ulcer Cleansing Wound Cleanser Rinsed/ Irrigated with Saline -Foul Odor after Cleansing No -Primary Dressing Applied Aquacel Extra, Aquacel Extra, Aquacel Extra, Collagen Powder Collagen Powder Collagen Powder ,NonAdherent ,NonAdherent ,NonAdherent Contact Layer Contact Layer Contact Layer -Other Dressing ABD abd pad - pts own collagen powder -Primary Dressing Covered/Secured with Secured with Dry Gauze, Tape Secured with Tape -Aquacel Extra 1 0 1 -Collagen Powder 1 0 1 3-ABDOMEN SUPERIOR -Ulcer Cleansing Wound Cleanser Rinsed/ Irrigated with Saline -Foul Odor after Cleansing No -Primary Dressing Applied Aquacel Extra, Aquacel Extra, Collagen Powder Collagen Powder ,NonAdherent ,NonAdherent Contact Layer Contact Layer -Other Dressing collagen, abd pad - pts aquacel extra, own collagen adaptic / ABD powder -Primary Dressing Covered/Secured with Secured with Secured with Dry Gauze, Tape Tape Secured with Tape -Aquacel Extra 1 0 -Collagen Powder 0 0 Treatment Response Procedure Tolerated Well Pain Scale: 0-10 Numeric Is Patient Pain Free? Yes Yes Yes WC - Visit Discharge Discharge Condition Stable Stable Stable Ambulatory Status Ambulatory Ambulatory Ambulatory Transportation Private Auto Private Auto Private Auto Medication Reconcilliation completed & No Yes provided to patient/care provider Clinical Summary of Care Provided Yes Yes Additional Wound Wound debrided: Abdomen (inferior) Type of Debridement: Excisional debridement Anesthesia Used: 5% Lidocaine Gel Depth: Down to and including healthy tissue and in the subcutaneous layer Percentage of wound debrided: 100 Instrument Used: 5mm curette Tissue Removed: Slough and devitalized tissue Severity: Fat Layer Exposed Amount of bleeding with debridement: Mild Bleeding Controlled with: Pressure Patient tolerated procedure: Patient tolerated procedure well Assessment/Plan Assessment/Plan (1) Non-healing surgical wound: CODE(S): T81.89XA - Other complications of procedures, not elsewhere classified, initial encounter QUALIFIERS: Encounter type: subsequent encounter Qualified Code(s): T81.89XD - Other complications of procedures, not elsewhere classified, subsequent encounter (2) Type 2 diabetes mellitus: CODE(S): E11.9 - Type 2 diabetes mellitus without complications QUALIFIERS: Diabetes mellitus penitentiary insulin use: without penitentiary use Diabetes mellitus complication status: with skin complications Diabetes mellitus complication detail: with other skin complication Qualified Code(s): E11.628 - Type 2 diabetes mellitus with other skin complications (3) History of colostomy reversal: CODE(S): Z98.890 - Other specified postprocedural states (4) Surgical wound breakdown: CODE(S): T81.31XA - Disruption of external operation (surgical) wound, not elsewhere classified, initial encounter QUALIFIERS: Encounter type: subsequent encounter Qualified Code(s): T81.31XD - Disruption of external operation (surgical) wound, not elsewhere classified, subsequent encounter (5) Localized swelling of abdominal wall: CODE(S): R22.2 - Localized swelling, mass and lump, trunk (6) Skin ulcer of abdomen with fat layer exposed: CODE(S): L98.492 - Non-pressure chronic ulcer of skin of other sites with fat layer exposed PLAN: Plan Debridement done as documented above, procedure was well-tolerated. Improving/stable. No acute concerns at this time. On average, maintaining good blood glucose control. Continue collagen powder, lightly moistened Aquacel extra daily to twice daily depending on drainage. Cover with Adaptic and gauze. Continue other chronic wound care management. Moisturize skin adequately. Adequate protein intake and optimized diabetes control. He was advised to let us know if he had any further questions or concerns. Follow-up in a week or sooner if needed. This note was generated with [employer] dictation software. It may contain incorrect words, spelling, and punctuation that were not noted in checking the note before signing.
--- NOTE | 2024-09-17 15:23 | WC ---
PHOTO-ABD INF/SUP 09/17/24
[2024-09-24 08:04] VITALS: BP 150/93; PULSE 80; RESP 16; TEMP 36.2
--- NOTE | 2024-09-24 09:02 | PCM.WC.PN ---
History of Present Illness Date of Service: 09/24/24 Chief Complaint: Non healing surgical wound History of Wound: Mr. Duque is a 63 yo being managed for surgical wound break down. Has been seen here since September 2023, 1 month after colostomy reversal. Progress of Wound: No acute concerns at this time. Improving. Objective Data Objective Data Vital Signs: Vital Signs Temp Pulse Resp BP O2 Del Method 97.2 F L 80 16 150/93 H Room Air 09/24/24 08:04 09/24/24 08:04 09/24/24 08:04 09/24/24 08:04 09/17/24 08:36 Oxygen Delivery Method Room Air Charges/Coding Procedures Integumentary 111xxx-113xx: [id number] Hannah subq tissue 20 sq cm/< Physical Exam Const alert, oriented x3 and no apparent distress General Appearance: cooperative, comfortable and well kempt HEENT normocephalic, head/scalp atraumatic and hearing grossly normal bilaterally Eyes EOMs intact bilaterally General Eye: normal appearance of both eyes Neck full ROM and supple General: normal visual inspection Resp normal respiratory effort Effort and Inspection: able to speak in complete sentences GI soft to palpation and non-tender Skin Wounds: wounds noted size Size: See clinical note, bed granulating well, margins well approximated and other, no odor, open and surrounding erythema Neuro oriented x3, CN's II-XII intact bilaterally, moves all extremities and no focal motor deficits Psych mental status grossly normal, thought process normal, cooperative and affect normal Debridement Note Debridement Note Wound debrided: Abdomen (superior) Type of Debridement: Excisional debridement Anesthesia Used: 4% Lidocaine Solution Depth: Down to and including healthy tissue and in the subcutaneous layer Percentage of wound debrided: 100 Instrument Used: 3mm curette Tissue Removed: Slough and devitalized tissue Severity: Fat Layer Exposed Amount of bleeding with debridement: Mild Bleeding Controlled with: Pressure Patient tolerated procedure: Patient tolerated procedure well Post-Debridement Measurements and Additional Note: Post-Debridement Measurements/Treatment WC - Nurse 1 - General Ulcer Assessment Start: 08/27/24 09:04 Freq: Status: Active Protocol: JUSTIN Activity Type Activity Date Activity User E-sign Co-sign Detail Recorded Client Recorded Date Recorded By Document 08/27/24 09:04 RB [id number] 08/27/24 09:07 RB Document 09/03/24 08:10 KW [id number] 09/03/24 08:15 KW Document 09/10/24 08:46 JF [id number] 09/10/24 08:50 JF Document 09/17/24 08:36 KW [id number] 09/17/24 08:41 KW Document 09/24/24 08:04 JF [id number] 09/24/24 08:13 JF 08/27/24 09/03/24 09/10/24 09:04 08:10 08:46 - Today's Visit Information Type of service Follow-up Visit Follow-up Visit Follow-up Visit (Physician/ORACLE HRMS DEVELOPER (Physician/ORACLE HRMS DEVELOPER (Physician/ORACLE HRMS DEVELOPER ) ) ) Arrival Mode Ambulatory Ambulatory Transfer Assistance None Patient Identification Verified (Name & Yes Yes Yes ) Patient Requires Transmission-Based No No Precautions Vital Signs Temperature (97.8 F-99.1 F) 98 F 96.8 F L 98.6 F Temperature Source Temporal Temporal Temporal Pulse Rate (60-100) 83 74 80 Pulse Location Monitor Monitor Monitor Respiratory Rate (12-18) 18 18 16 Respiratory rate source Observation Observation Observation Oxygen Delivery Method Room Air Blood Pressure (90/60-120/80) 142/96 H 137/76 H 159/95 H Blood Pressure Mean (mm Hg) 111 96 116 Source Monitor Monitor Monitor Position Semi-Fowlers Sitting Semi-Fowlers Blood Pressure Location Left Arm Left Arm Left Arm History Since Last Visit- (Skip if this is Patient's initial visit) Have you changed medications since your No No Yes last visit? Any new allergies or adverse reactions No No No Had a fall/change in ADL's that may No No No increase risk of falls Signs or symptoms of abuse and/or No No No neglect since last visit Have you been in the hospital since your No No No last visit? Has dressing in place as prescribed Yes Yes Yes Has compression in place as prescribed N/A N/A N/A Has offloadiing in place as prescribed N/A N/A N/A Experienced any changes in pain level or No No No management Left Footwear Regular Shoe Regular Shoe Right Footwear Regular Shoe Regular Shoe Pain Scale: 0-10 Numeric Is Patient Pain Free? Yes Yes Yes 09/17/24 09/24/24 08:36 08:04 - Today's Visit Information Type of service Follow-up Visit Follow-up Visit (Physician/ORACLE HRMS DEVELOPER (Physician/ORACLE HRMS DEVELOPER ) ) Arrival Mode Ambulatory Ambulatory Transfer Assistance Patient Identification Verified (Name & Yes Yes ) Patient Requires Transmission-Based No Precautions Vital Signs Temperature (97.8 F-99.1 F) 97.0 F L 97.2 F L Temperature Source Temporal Temporal Pulse Rate (60-100) 83 80 Pulse Location Monitor Monitor Respiratory Rate (12-18) 18 16 Respiratory rate source Observation Oxygen Delivery Method Room Air Blood Pressure (90/60-120/80) 153/88 H 150/93 H Blood Pressure Mean (mm Hg) 109 112 Source Monitor Monitor Position Sitting Sitting Blood Pressure Location Left Arm Right Arm History Since Last Visit- (Skip if this is Patient's initial visit) Have you changed medications since your No Yes last visit? Any new allergies or adverse reactions No No Had a fall/change in ADL's that may No No increase risk of falls Signs or symptoms of abuse and/or No No neglect since last visit Have you been in the hospital since your No No last visit? Has dressing in place as prescribed Yes Yes Has compression in place as prescribed N/A N/A Has offloadiing in place as prescribed N/A N/A Experienced any changes in pain level or No No management Left Footwear Regular Shoe Regular Shoe Right Footwear Regular Shoe Regular Shoe Pain Scale: 0-10 Numeric Is Patient Pain Free? Yes Yes WC - Nurse 1 - General Ulcer Measurement Start: 08/27/24 09:04 Freq: Status: Active Protocol: Activity Type Activity Date Activity User E-sign Co-sign Detail Recorded Client Recorded Date Recorded By Document 08/27/24 09:04 RB [id number] 08/27/24 09:07 RB Document 09/03/24 08:10 KW [id number] 09/03/24 08:15 KW Document 09/10/24 08:46 JF [id number] 09/10/24 08:50 JF Document 09/17/24 08:36 KW [id number] 09/17/24 08:41 KW Document 09/24/24 08:04 JF [id number] 09/24/24 08:13 JF 08/27/24 09/03/24 09/10/24 09:04 08:10 08:46 Wound Center Nurse 1 4-ABDOMEN INFERIOR -Combined with other wound No No -Current Size (cm) - Length 1 1 0.3 -Current Size (cm) - Width 0.5 0.5 0.3 -Current Size (cm) - Depth 0.1 0.1 0.1 -Total Square Cm 0.5 0.5 0.09 -Date of Last Picture (Recall this 09/03/24 field) -Photo Taken Yes Yes -Epithelialization Large 67-100% Large 67-100% -Tunneling No No -Undermining/Tunneling No No -Circular Undermining No No -Exudate Amt Medium Small Small -Exudate Type Serosanguineous Serosanguineous Serosanguineous -Wound Margin Distinct, Distinct, Flat & Intact Outline Outline Attached Attached -Granulation Amt Medium (34-66%) Large (67-100%) None Present (0 %) -Granulation Quality [place],Red Pale -Slough/Fibrin Yes Yes -Necrosis Amt Medium (34-66%) Small (1-33%) -Necrotic Tissue Type Adherent Slough Adherent Slough -Structure Exposed N/A N/A -Texture (Matilde-wound Skin Appearance) Assessed, Assessed, Assessed, Scarring Scarring Scarring -Moisture (Matilde-wound Skin Appearance) Assessed Assessed Assessed,Dry/ Scaly -Color (Matilde-wound Skin Appearance) Assessed Assessed Assessed -Temperature (Matilde-wound Skin No Abnormality No Abnormality No Abnormality Appearance) (Pt Warm) (Pt Warm) (Pt Warm) -Tenderness on Palpation (Matilde-wound No No No Skin Appearance) -Ulcer Cleansing Wound Cleanser Rinsed/ Rinsed/ Irrigated with Irrigated with Saline Saline -Foul Odor after Cleansing No No No -Anesthetic Used 5% Lidocaine 5% Lidocaine 5% Lidocaine Gel Gel Gel 3-ABDOMEN SUPERIOR -Combined with other wound No No -Current Size (cm) - Length 1.2 1 0.5 -Current Size (cm) - Width 1 0.5 0.6 -Current Size (cm) - Depth 0.1 0.1 0.1 -Total Square Cm 1.2 0.5 0.30 -Date of Last Picture (Recall this 09/03/24 field) -Photo Taken Yes Yes -Epithelialization Large 67-100% Large 67-100% -Tunneling No No -Undermining/Tunneling No No -Circular Undermining No No -Exudate Amt Medium Small Small -Exudate Type Serosanguineous Serosanguineous Serosanguineous -Wound Margin Distinct, Distinct, Flat & Intact Outline Outline Attached Attached -Granulation Amt Medium (34-66%) Large (67-100%) Medium (34-66%) -Granulation Quality [place] -Slough/Fibrin Yes Yes -Necrosis Amt Medium (34-66%) Small (1-33%) -Necrotic Tissue Type Adherent Slough Adherent Slough -Structure Exposed N/A N/A -Texture (Matilde-wound Skin Appearance) Assessed, Assessed, Assessed, Scarring Scarring Scarring -Moisture (Matilde-wound Skin Appearance) Assessed Assessed No Abnormality -Color (Matilde-wound Skin Appearance) Assessed Assessed No Abnormality -Temperature (Matilde-wound Skin No Abnormality No Abnormality No Abnormality Appearance) (Pt Warm) (Pt Warm) (Pt Warm) -Tenderness on Palpation (Matilde-wound No No No Skin Appearance) -Ulcer Cleansing Wound Cleanser Rinsed/ Rinsed/ Irrigated with Irrigated with Saline Saline -Foul Odor after Cleansing No No No -Anesthetic Used 5% Lidocaine 5% Lidocaine 5% Lidocaine Gel Gel Gel Lower Limb Edema Present NA 09/17/24 09/24/24 08:36 08:04 Wound Center Nurse 1 4-ABDOMEN INFERIOR -Combined with other wound No -Current Size (cm) - Length 0.6 0.6 -Current Size (cm) - Width 1 0.7 -Current Size (cm) - Depth 0.1 0.1 -Total Square Cm 0.6 0.42 -Date of Last Picture (Recall this 09/17/24 field) -Photo Taken Yes -Epithelialization Large 67-100% Large 67-100% -Tunneling No -Undermining/Tunneling No -Circular Undermining No -Exudate Amt None Present Small -Exudate Type Serosanguineous Serosanguineous -Wound Margin Indistinct, Non Flat & Intact -Visible -Granulation Amt Large (67-100%) Large (67-100%) -Granulation Quality [place] Red -Slough/Fibrin Yes -Necrosis Amt Small (1-33%) -Necrotic Tissue Type Adherent Slough -Structure Exposed N/A -Texture (Matilde-wound Skin Appearance) Assessed, Assessed, Scarring Scarring -Moisture (Matilde-wound Skin Appearance) Assessed Assessed,Dry/ Scaly -Color (Matilde-wound Skin Appearance) Assessed Assessed -Temperature (Matilde-wound Skin No Abnormality No Abnormality Appearance) (Pt Warm) (Pt Warm) -Tenderness on Palpation (Matilde-wound No No Skin Appearance) -Ulcer Cleansing Rinsed/ Rinsed/ Irrigated with Irrigated with Saline Saline -Foul Odor after Cleansing No No -Anesthetic Used 5% Lidocaine 4% Lidocaine Gel Solution 3-ABDOMEN SUPERIOR -Combined with other wound No -Current Size (cm) - Length 0.3 1 -Current Size (cm) - Width 0.5 1 -Current Size (cm) - Depth 0.1 0.1 -Total Square Cm 0.15 1 -Date of Last Picture (Recall this 09/17/24 field) -Photo Taken Yes -Epithelialization Small 1-33% -Tunneling No -Undermining/Tunneling No -Circular Undermining No -Exudate Amt None Present Small -Exudate Type Serosanguineous -Wound Margin Indistinct, Non Flat & Intact -Visible -Granulation Amt Small (1-33%) Large (67-100%) -Granulation Quality Red Red -Slough/Fibrin Yes -Necrosis Amt Small (1-33%) -Necrotic Tissue Type Adherent Slough -Structure Exposed N/A -Texture (Matilde-wound Skin Appearance) Assessed Assessed, Scarring -Moisture (Matilde-wound Skin Appearance) Assessed Assessed,Dry/ Scaly -Color (Matilde-wound Skin Appearance) Assessed Assessed -Temperature (Matilde-wound Skin No Abnormality No Abnormality Appearance) (Pt Warm) (Pt Warm) -Tenderness on Palpation (Matilde-wound No No Skin Appearance) -Ulcer Cleansing Rinsed/ Rinsed/ Irrigated with Irrigated with Saline Saline -Foul Odor after Cleansing No No -Anesthetic Used 5% Lidocaine 4% Lidocaine Gel Solution Lower Limb Edema Present NA WC - Nurse 2 - General Ulcer CM Notes Start: 08/27/24 09:04 Freq: Status: Active Protocol: Activity Type Activity Date Activity User E-sign Co-sign Detail Recorded Client Recorded Date Recorded By Document 08/27/24 09:36 [id number] 08/27/24 09:40 Document 09/03/24 08:29 [id number] 09/03/24 08:34 GM Document 09/10/24 09:21 DS [id number] 09/10/24 09:26 DS Document 09/17/24 09:10 DS [id number] 09/17/24 09:13 DS Document 09/24/24 08:32 GM [id number] 09/24/24 08:36 08/27/24 09/03/24 09/10/24 09:36 08:29 09:21 Wound Center Nurse 2 4-ABDOMEN INFERIOR -Time 09:36 08:29 09:21 -Correct Patient Yes Yes Yes -Correct Side, Site, Position Yes Yes Yes -Correct Procedure Yes Yes Yes -Procedure Performed Yes Yes Yes -Type of Procedure Debridement Debridement Debridement -Clinical Debridement Subcutaneous Subcutaneous Subcutaneous -Tissue Removed Subcutaneous Subcutaneous Subcutaneous -Post Debridement (cm) - Length 1.0 1.1 1.2 -Post Debridement (cm) - Width 0.7 0.6 0.8 -Post Debridement (cm) - Depth 0.1 0.1 0.1 -Total Square (Post) (cm) 0.70 0.66 0.96 -Area of Debridement (cm) - Length 1.0 1.1 1.2 -Area of Debridement (cm) - Width 0.7 0.6 0.8 -Total Square (Area) (cm) 0.70 0.66 0.96 -Tunneling No No No -Undermining/Tunneling No No No -Circular Undermining No No No -Wound/Ulcer Outcome Not Healed Not Healed Not Healed -Ulcer Cleansing Rinsed/ Rinsed/ Rinsed/ Irrigated with Irrigated with Irrigated with Saline Saline Saline -Foul Odor after Cleansing No No No -Bioengineered Tissue No No No -Bleeding Controlled with Pressure Pressure Pressure -Treatment Response Procedure Procedure Procedure Tolerated Well Tolerated Well Tolerated Well -Offloading No -Debridement - Subq, 1st 20sq cm No No Yes 3-ABDOMEN SUPERIOR -Time 09:37 08:30 09:21 -Correct Patient Yes Yes Yes -Correct Side, Site, Position Yes Yes Yes -Correct Procedure Yes Yes Yes -Procedure Performed Yes Yes Yes -Type of Procedure Debridement Debridement Debridement -Clinical Debridement Subcutaneous Subcutaneous Subcutaneous -Tissue Removed Subcutaneous Subcutaneous Subcutaneous -Post Debridement (cm) - Length 1.5 1.1 1.0 -Post Debridement (cm) - Width 1.0 0.8 0.7 -Post Debridement (cm) - Depth 0.1 0.1 0.1 -Total Square (Post) (cm) 1.50 0.88 0.70 -Area of Debridement (cm) - Length 1.5 1.1 1.0 -Area of Debridement (cm) - Width 1.0 0.8 0.7 -Total Square (Area) (cm) 1.50 0.88 0.70 -Tunneling No No No -Undermining/Tunneling No No No -Circular Undermining No No No -Wound/Ulcer Outcome Not Healed Not Healed Not Healed -Ulcer Cleansing Rinsed/ Rinsed/ Rinsed/ Irrigated with Irrigated with Irrigated with Saline Saline Saline -Foul Odor after Cleansing No No No -Bioengineered Tissue No No No -Bleeding Controlled with Pressure Pressure Pressure -Treatment Response Procedure Procedure Procedure Tolerated Well Tolerated Well Tolerated Well -Offloading No No -Debridement - Subq, 1st 20sq cm Yes Yes No Pain Scale: 0-10 Numeric Is Patient Pain Free? Yes Yes Yes 09/17/24 09/24/24 09:10 08:32 Wound Center Nurse 2 4-ABDOMEN INFERIOR -Time 09:10 08:33 -Correct Patient Yes Yes -Correct Side, Site, Position Yes Yes -Correct Procedure Yes Yes -Procedure Performed Yes Yes -Type of Procedure Debridement Debridement -Clinical Debridement Subcutaneous Subcutaneous -Tissue Removed Subcutaneous Subcutaneous -Post Debridement (cm) - Length 1.1 0.7 -Post Debridement (cm) - Width 0.9 0.7 -Post Debridement (cm) - Depth 0.1 0.1 -Total Square (Post) (cm) 0.99 0.49 -Area of Debridement (cm) - Length 1.1 0.7 -Area of Debridement (cm) - Width 0.9 0.7 -Total Square (Area) (cm) 0.99 0.49 -Tunneling No No -Undermining/Tunneling No No -Circular Undermining No No -Wound/Ulcer Outcome Not Healed Not Healed -Ulcer Cleansing Rinsed/ Rinsed/ Irrigated with Irrigated with Saline Saline -Foul Odor after Cleansing No No -Bioengineered Tissue No No -Bleeding Controlled with Pressure Pressure -Treatment Response Procedure Procedure Tolerated Well Tolerated Well -Offloading No -Debridement - Subq, 1st 20sq cm Yes Yes 3-ABDOMEN SUPERIOR -Time 09:10 08:33 -Correct Patient Yes Yes -Correct Side, Site, Position Yes Yes -Correct Procedure Yes Yes -Procedure Performed Yes Yes -Type of Procedure Debridement Debridement -Clinical Debridement Subcutaneous Subcutaneous -Tissue Removed Subcutaneous Subcutaneous -Post Debridement (cm) - Length 0.8 0.3 -Post Debridement (cm) - Width 0.7 0.7 -Post Debridement (cm) - Depth 0.1 0.1 -Total Square (Post) (cm) 0.56 0.21 -Area of Debridement (cm) - Length 0.8 0.3 -Area of Debridement (cm) - Width 0.7 0.7 -Total Square (Area) (cm) 0.56 0.21 -Tunneling No No -Undermining/Tunneling No No -Circular Undermining No No -Wound/Ulcer Outcome Not Healed Not Healed -Ulcer Cleansing Rinsed/ Rinsed/ Irrigated with Irrigated with Saline Saline -Foul Odor after Cleansing No No -Bioengineered Tissue No No -Bleeding Controlled with Pressure Pressure -Treatment Response Procedure Procedure Tolerated Well Tolerated Well -Offloading No -Debridement - Subq, 1st 20sq cm No No Pain Scale: 0-10 Numeric Is Patient Pain Free? Yes Yes WC - Nurse 3 - General Ulcer D/C NN Start: 08/27/24 09:04 Freq: Status: Active Protocol: Activity Type Activity Date Activity User E-sign Co-sign Detail Recorded Client Recorded Date Recorded By Document 08/27/24 09:54 MT [id number] 08/27/24 09:56 MT Document 09/03/24 08:42 DS [id number] 09/03/24 08:44 DS Document 09/10/24 09:36 JF [id number] 09/10/24 09:38 JF Document 09/17/24 09:28 CP [id number] 09/17/24 09:31 CP Document 09/24/24 08:45 DS [id number] 09/24/24 08:54 DS 08/27/24 09/03/24 09/10/24 09:54 08:42 09:36 Wound Care Center Nurse 3 4-ABDOMEN INFERIOR -Ulcer Cleansing Wound Cleanser Rinsed/ Irrigated with Saline -Foul Odor after Cleansing No -Primary Dressing Applied Aquacel Extra, Aquacel Extra, Aquacel Extra, Collagen Powder Collagen Powder Collagen Powder ,NonAdherent ,NonAdherent ,NonAdherent Contact Layer Contact Layer Contact Layer -Other Dressing ABD abd pad - pts own collagen powder -Primary Dressing Covered/Secured with Secured with Dry Gauze, Tape Secured with Tape -Aquacel Extra 1 0 1 -Collagen Powder 1 0 1 -Wound Comment(s) 3-ABDOMEN SUPERIOR -Ulcer Cleansing Wound Cleanser Rinsed/ Irrigated with Saline -Foul Odor after Cleansing No -Primary Dressing Applied Aquacel Extra, Aquacel Extra, Collagen Powder Collagen Powder ,NonAdherent ,NonAdherent Contact Layer Contact Layer -Other Dressing collagen, abd pad - pts aquacel extra, own collagen adaptic / ABD powder -Primary Dressing Covered/Secured with Secured with Secured with Dry Gauze, Tape Tape Secured with Tape -Aquacel Extra 1 0 -Collagen Powder 0 0 Treatment Response Procedure Tolerated Well Pain Scale: 0-10 Numeric Is Patient Pain Free? Yes Yes Yes WC - Visit Discharge Discharge Condition Stable Stable Stable Ambulatory Status Ambulatory Ambulatory Ambulatory Transportation [employer] Medication Reconcilliation completed & No Yes provided to patient/care provider Clinical Summary of Care Provided Yes Yes 09/17/24 09/24/24 09:28 08:45 Wound Care Center Nurse 3 4-ABDOMEN INFERIOR -Ulcer Cleansing Rinsed/ Soap and Water Irrigated with Saline -Foul Odor after Cleansing -Primary Dressing Applied Aquacel Extra, Aquacel Extra, Collagen Powder Collagen Powder ,NonAdherent Contact Layer -Other Dressing abd -Primary Dressing Covered/Secured with Dry Gauze, Secured with Secured with Tape Tape -Aquacel Extra 1 1 -Collagen Powder 1 1 -Wound Comment(s) adaptic, tape 3-ABDOMEN SUPERIOR -Ulcer Cleansing Rinsed/ Soap and Water Irrigated with Saline -Foul Odor after Cleansing -Primary Dressing Applied Aquacel Extra, Aquacel Extra, Collagen Powder Collagen Powder ,NonAdherent Contact Layer -Other Dressing adaptic abd -Primary Dressing Covered/Secured with Dry Gauze, Secured with Secured with Tape Tape -Aquacel Extra 0 0 -Collagen Powder 0 0 Treatment Response Pain Scale: 0-10 Numeric Is Patient Pain Free? Yes Yes WC - Visit Discharge Discharge Condition Stable Stable Ambulatory Status Ambulatory Ambulatory Transportation [employer] Medication Reconcilliation completed & provided to patient/care provider Clinical Summary of Care Provided Yes Additional Wound Wound debrided: Abdomen (inferior) Type of Debridement: Excisional debridement Anesthesia Used: 4% Lidocaine Solution Depth: Down to and including healthy tissue and in the subcutaneous layer Percentage of wound debrided: 100 Instrument Used: 3mm curette Tissue Removed: Slough and devitalized tissue Severity: Fat Layer Exposed Amount of bleeding with debridement: Mild Bleeding Controlled with: Pressure Patient tolerated procedure: Patient tolerated procedure well Assessment/Plan Assessment/Plan (1) Non-healing surgical wound: CODE(S): T81.89XA - Other complications of procedures, not elsewhere classified, initial encounter QUALIFIERS: Encounter type: subsequent encounter Qualified Code(s): T81.89XD - Other complications of procedures, not elsewhere classified, subsequent encounter (2) Type 2 diabetes mellitus: CODE(S): E11.9 - Type 2 diabetes mellitus without complications QUALIFIERS: Diabetes mellitus correction insulin use: without correction use Diabetes mellitus complication status: with skin complications Diabetes mellitus complication detail: with other skin complication Qualified Code(s): E11.628 - Type 2 diabetes mellitus with other skin complications (3) History of colostomy reversal: CODE(S): Z98.890 - Other specified postprocedural states (4) Surgical wound breakdown: CODE(S): T81.31XA - Disruption of external operation (surgical) wound, not elsewhere classified, initial encounter QUALIFIERS: Encounter type: subsequent encounter Qualified Code(s): T81.31XD - Disruption of external operation (surgical) wound, not elsewhere classified, subsequent encounter (5) Localized swelling of abdominal wall: CODE(S): R22.2 - Localized swelling, mass and lump, trunk (6) Skin ulcer of abdomen with fat layer exposed: CODE(S): L98.492 - Non-pressure chronic ulcer of skin of other sites with fat layer exposed PLAN: Plan Debridement done as documented above, procedure was well-tolerated. Continues to show good improvement. No acute concerns at this time. Recent labs with A1c down from 8.5-7.3. Continue collagen powder, lightly moistened Aquacel extra daily to twice daily depending on drainage. Cover with Adaptic and gauze. Continue other chronic wound care management. Moisturize skin adequately. Adequate protein intake and optimized diabetes control. He was advised to let us know if he had any further questions or concerns. Follow-up in a week or sooner if needed. This note was generated with [employer] dictation software. It may contain incorrect words, spelling, and punctuation that were not noted in checking the note before signing.
--- NOTE | 2024-09-25 08:27 | WC ---
PHOTO-ABD INF 09/24/24
--- NOTE | 2024-09-25 08:29 | WC ---
PHOTO-ABD SUP 09/24/24
== END 2024-09-24 23:59 | disposition home or self-care (01) ==
LOC: WC 08:00
PROVIDERS: PCP Internal Medicine; Referring Provider Internal Medicine; Visit Provider Internal Medicine
DX: T81.89XD Other complications of procedures, not elsewhere classified, subsequent encounter (principal); L98.492 Non-pressure chronic ulcer of skin of other sites with fat layer exposed; E11.628 Type 2 diabetes mellitus with other skin complications; T81.31XD Disruption of external operation (surgical) wound, not elsewhere classified, subsequent encounter; Z98.890 Other specified postprocedural states; R22.2 Localized swelling, mass and lump, trunk
CPT/HCPCS: 11042

== ENCOUNTER 2024-10-22 08:00 | Outpatient (RCR) | payer OTHER, SELFPAY ==
[2024-10-01 08:25] VITALS: BP 148/80; PULSE 78; RESP 18; TEMP 35.8
--- NOTE | 2024-10-01 09:16 | PCM.WC.PN ---
History of Present Illness Date of Service: 10/01/24 Chief Complaint: Non healing surgical wound History of Wound: Mr. Duque is a 63 yo being managed for surgical wound break down. Has been seen here since September 2023, 1 month after colostomy reversal. Progress of Wound: No acute concerns at this time. Continues to show good improvement. Doing dressing changes as recommended. Objective Data Objective Data Vital Signs: Vital Signs Temp Pulse Resp BP 96.4 F L 78 18 148/80 H 10/01/24 08:25 10/01/24 08:25 10/01/24 08:25 10/01/24 08:25 Charges/Coding Procedures Integumentary 111xxx-113xx: 08499 Hannah subq tissue 20 sq cm/< Physical Exam Const alert, oriented x3 and no apparent distress General Appearance: cooperative, comfortable and well kempt HEENT normocephalic, head/scalp atraumatic and hearing grossly normal bilaterally Eyes EOMs intact bilaterally General Eye: normal appearance of both eyes Neck full ROM and supple General: normal visual inspection Resp normal respiratory effort Effort and Inspection: able to speak in complete sentences GI soft to palpation and non-tender Skin Wounds: wounds noted size Size: See clinical note, bed granulating well, margins well approximated and other, no odor, open and surrounding erythema Neuro oriented x3, CN's II-XII intact bilaterally, moves all extremities and no focal motor deficits Psych mental status grossly normal, thought process normal, cooperative and affect normal Debridement Note Debridement Note Wound debrided: Abdomen (superior) Type of Debridement: Selective debridement Anesthesia Used: 5% Lidocaine Gel Depth: Down to and including healthy tissue Percentage of wound debrided: 100 Instrument Used: - (1mm) Tissue Removed: Devitalized tissue Severity: Limited To Skin Breakdown Amount of bleeding with debridement: Mild Bleeding Controlled with: Pressure Patient tolerated procedure: Patient tolerated procedure well Post-Debridement Measurements and Additional Note: Post-Debridement Measurements/Treatment JYOTHI - Nurse 1 - General Ulcer Assessment Start: 10/01/24 08:25 Freq: Status: Active Protocol: JUSTIN Activity Type Activity Date Activity User E-sign Co-sign Detail Recorded Client Recorded Date Recorded By Document 10/01/24 08:25 BELGICA [id number] 10/01/24 08:27 RB 10/01/24 08:25 JYOTHI - Today's Visit Information Type of service Follow-up Visit (Physician/SKI TOP TRIMMER ) Arrival Mode Ambulatory Transfer Assistance None Patient Identification Verified (Name & Yes ) Patient Requires Transmission-Based No Precautions Vital Signs Temperature (97.8 F-99.1 F) 96.4 F L Temperature Source Temporal Pulse Rate (60-100) 78 Pulse Location Monitor Respiratory Rate (12-18) 18 Respiratory rate source Observation Blood Pressure (90/60-120/80) 148/80 H Blood Pressure Mean (mm Hg) 102 Source Monitor Position Semi-Fowlers Blood Pressure Location Left Arm History Since Last Visit- (Skip if this is Patient's initial visit) Have you changed medications since your No last visit? Any new allergies or adverse reactions No Had a fall/change in ADL's that may No increase risk of falls Signs or symptoms of abuse and/or No neglect since last visit Have you been in the hospital since your No last visit? Has dressing in place as prescribed Yes Has compression in place as prescribed No Has offloadiing in place as prescribed No Experienced any changes in pain level or No management Pain Scale: 0-10 Numeric Is Patient Pain Free? Yes WC - Nurse 1 - General Ulcer Measurement Start: 10/01/24 08:25 Freq: Status: Active Protocol: Activity Type Activity Date Activity User E-sign Co-sign Detail Recorded Client Recorded Date Recorded By Document 10/01/24 08:25 BELGICA [id number] 10/01/24 08:27 RB 10/01/24 08:25 Wound Center Nurse 1 4-ABDOMEN INFERIOR -Combined with other wound No -Current Size (cm) - Length 0.1 -Current Size (cm) - Width 0.1 -Current Size (cm) - Depth 0.1 -Total Square Cm 0.01 -Photo Taken Yes -Tunneling No -Undermining/Tunneling No -Circular Undermining No -Exudate Amt Small -Exudate Type Serosanguineous -Wound Margin Distinct, Outline Attached -Granulation Amt Medium (34-66%) -Granulation Quality [place] -Slough/Fibrin Yes -Necrosis Amt Medium (34-66%) -Necrotic Tissue Type Adherent Slough -Structure Exposed N/A -Texture (Matilde-wound Skin Appearance) Assessed, Scarring -Moisture (Matilde-wound Skin Appearance) Assessed -Color (Matilde-wound Skin Appearance) Assessed -Temperature (Matilde-wound Skin No Abnormality Appearance) (Pt Warm) -Tenderness on Palpation (Matilde-wound No Skin Appearance) -Ulcer Cleansing Wound Cleanser -Foul Odor after Cleansing No -Anesthetic Used 5% Lidocaine Gel 3-ABDOMEN SUPERIOR -Combined with other wound No -Current Size (cm) - Length 0.1 -Current Size (cm) - Width 0.1 -Current Size (cm) - Depth 0.1 -Total Square Cm 0.01 -Photo Taken Yes -Tunneling No -Undermining/Tunneling No -Circular Undermining No -Exudate Amt Medium -Exudate Type Serosanguineous -Wound Margin Distinct, Outline Attached -Granulation Amt Medium (34-66%) -Granulation Quality [place] -Slough/Fibrin Yes -Necrosis Amt Medium (34-66%) -Necrotic Tissue Type Adherent Slough -Structure Exposed N/A -Texture (Matilde-wound Skin Appearance) Assessed -Moisture (Matilde-wound Skin Appearance) Assessed -Color (Matilde-wound Skin Appearance) Assessed -Temperature (Matilde-wound Skin No Abnormality Appearance) (Pt Warm) -Tenderness on Palpation (Matilde-wound No Skin Appearance) -Foul Odor after Cleansing No -Anesthetic Used 5% Lidocaine Gel WC - Nurse 2 - General Ulcer CM Notes Start: 10/01/24 08:25 Freq: Status: Active Protocol: Activity Type Activity Date Activity User E-sign Co-sign Detail Recorded Client Recorded Date Recorded By Document 10/01/24 08:42 GM [id number] 10/01/24 08:50 GM 10/01/24 08:42 Wound Center Nurse 2 4-ABDOMEN INFERIOR -Time 08:42 -Correct Patient Yes -Correct Side, Site, Position Yes -Correct Procedure Yes -Procedure Performed Yes -Type of Procedure Debridement -Clinical Debridement Subcutaneous -Tissue Removed Subcutaneous -Post Debridement (cm) - Length 0.6 -Post Debridement (cm) - Width 0.6 -Post Debridement (cm) - Depth 0.1 -Total Square (Post) (cm) 0.36 -Area of Debridement (cm) - Length 0.6 -Area of Debridement (cm) - Width 0.6 -Total Square (Area) (cm) 0.36 -Tunneling No -Undermining/Tunneling No -Circular Undermining No -Wound/Ulcer Outcome Not Healed -Ulcer Cleansing Rinsed/ Irrigated with Saline -Foul Odor after Cleansing No -Bioengineered Tissue No -Bleeding Controlled with Pressure -Treatment Response Procedure Tolerated Well -Offloading No -Debridement - Subq, 1st 20sq cm Yes 3-ABDOMEN SUPERIOR -Time 08:43 -Correct Patient Yes -Correct Side, Site, Position Yes -Correct Procedure Yes -Procedure Performed Yes -Type of Procedure Debridement -Clinical Debridement Epidermis / Dermis -Tissue Removed Epidermis -Post Debridement (cm) - Length 0.3 -Post Debridement (cm) - Width 0.7 -Post Debridement (cm) - Depth 0.1 -Total Square (Post) (cm) 0.21 -Area of Debridement (cm) - Length 0.3 -Area of Debridement (cm) - Width 0.7 -Total Square (Area) (cm) 0.21 -Tunneling No -Undermining/Tunneling No -Circular Undermining No -Wound/Ulcer Outcome Not Healed -Ulcer Cleansing Rinsed/ Irrigated with Saline -Foul Odor after Cleansing No -Bioengineered Tissue No -Bleeding Controlled with Pressure -Treatment Response Procedure Tolerated Well -Offloading No -Debridement - Open, 1st 20sq cm Yes Pain Scale: 0-10 Numeric Is Patient Pain Free? Yes - Nurse 3 - General Ulcer D/C NN Start: 10/01/24 08:25 Freq: Status: Active Protocol: Activity Type Activity Date Activity User E-sign Co-sign Detail Recorded Client Recorded Date Recorded By Document 10/01/24 09:03 [id number] 10/01/24 09:05 10/01/24 09:03 Wound Care Center Nurse 3 4-ABDOMEN INFERIOR -Ulcer Cleansing Rinsed/ Irrigated with Saline -Foul Odor after Cleansing No -Primary Dressing Applied Aquacel Extra, Collagen Powder -Primary Dressing Covered/Secured with Dry Gauze, Secured with Tape -Aquacel Extra 1 -Collagen Powder 1 Pain Scale: 0-10 Numeric Is Patient Pain Free? Yes WC - Visit Discharge Discharge Condition Stable Ambulatory Status Ambulatory Transportation Private Auto Clinical Summary of Care Provided Yes Additional Wound Wound debrided: Abdomen (inferior) Type of Debridement: Excisional debridement Anesthesia Used: 5% Lidocaine Gel Depth: Down to and including healthy tissue and in the subcutaneous layer Percentage of wound debrided: 100 Instrument Used: 3mm curette Tissue Removed: Slough and devitalized tissue Severity: Fat Layer Exposed Bleeding Controlled with: Pressure Patient tolerated procedure: Patient tolerated procedure well Assessment/Plan Assessment/Plan (1) Non-healing surgical wound: CODE(S): T81.89XA - Other complications of procedures, not elsewhere classified, initial encounter QUALIFIERS: Encounter type: subsequent encounter Qualified Code(s): T81.89XD - Other complications of procedures, not elsewhere classified, subsequent encounter (2) Type 2 diabetes mellitus: CODE(S): E11.9 - Type 2 diabetes mellitus without complications QUALIFIERS: Diabetes mellitus intermediate card tender insulin use: without intermediate card tender use Diabetes mellitus complication status: with skin complications Diabetes mellitus complication detail: with other skin complication Qualified Code(s): E11.628 - Type 2 diabetes mellitus with other skin complications (3) History of colostomy reversal: CODE(S): Z98.890 - Other specified postprocedural states (4) Surgical wound breakdown: CODE(S): T81.31XA - Disruption of external operation (surgical) wound, not elsewhere classified, initial encounter QUALIFIERS: Encounter type: subsequent encounter Qualified Code(s): T81.31XD - Disruption of external operation (surgical) wound, not elsewhere classified, subsequent encounter (5) Localized swelling of abdominal wall: CODE(S): R22.2 - Localized swelling, mass and lump, trunk (6) Skin ulcer of abdomen with fat layer exposed: CODE(S): L98.492 - Non-pressure chronic ulcer of skin of other sites with fat layer exposed PLAN: Plan Debridement done as documented above, procedure was well-tolerated. Continues to show good improvement. No acute concerns at this time. Recent labs with A1c down from 8.5-7.3. Continue collagen powder, lightly moistened Aquacel extra daily. Cover with Adaptic and gauze. Continue other chronic wound care management. Moisturize skin adequately. Adequate protein intake and optimized diabetes control. He was advised to let us know if he had any further questions or concerns. Follow-up in a week or sooner if needed. This note was generated with [employer] dictation software. It may contain incorrect words, spelling, and punctuation that were not noted in checking the note before signing.
--- NOTE | 2024-10-01 13:14 | WC ---
PHOTO-ABD SUP 10/01/24
[2024-10-08 08:07] VITALS: BP 151/82; PULSE 79; RESP 18; TEMP 35.9
--- NOTE | 2024-10-08 09:18 | PCM.WC.PN ---
History of Present Illness Date of Service: 10/08/24 Chief Complaint: Non healing surgical wound History of Wound: Mr. Duque is a 63 yo being managed for surgical wound break down. Has been seen here since September 2023, 1 month after colostomy reversal. Progress of Wound: Slight breakdown over area of retained surgical product. No drainage. Prior ulcerations/wounds with good improvement. Objective Data Objective Data Vital Signs: Vital Signs Temp Pulse Resp BP O2 Del Method 96.7 F L 79 18 151/82 H Room Air 10/08/24 08:07 10/08/24 08:07 10/08/24 08:07 10/08/24 08:07 10/08/24 08:07 Oxygen Delivery Method Room Air Charges/Coding Procedures Integumentary 111xxx-113xx: 28152 Hannah subq tissue 20 sq cm/< Physical Exam Const alert, oriented x3 and no apparent distress General Appearance: cooperative, comfortable and well kempt HEENT normocephalic, head/scalp atraumatic and hearing grossly normal bilaterally Eyes EOMs intact bilaterally General Eye: normal appearance of both eyes Neck full ROM and supple General: normal visual inspection Resp normal respiratory effort Effort and Inspection: able to speak in complete sentences GI soft to palpation and non-tender Skin Wounds: wounds noted size Size: See clinical note, bed granulating well, margins well approximated and other, no odor, open and surrounding erythema Neuro oriented x3, CN's II-XII intact bilaterally, moves all extremities and no focal motor deficits Psych mental status grossly normal, thought process normal, cooperative and affect normal Debridement Note Debridement Note Wound debrided: Abdomen (inferior) Type of Debridement: Excisional debridement Depth: Down to and including healthy tissue Instrument Used: 3mm curette Tissue Removed: Slough and devitalized tissue Severity: Fat Layer Exposed Amount of bleeding with debridement: Mild Bleeding Controlled with: Pressure Patient tolerated procedure: Patient tolerated procedure well Post-Debridement Measurements and Additional Note: Post-Debridement Measurements/Treatment WC - Nurse 1 - General Ulcer Assessment Start: 10/01/24 08:25 Freq: Status: Active Protocol: JUSTIN Activity Type Activity Date Activity User E-sign Co-sign Detail Recorded Client Recorded Date Recorded By Document 10/01/24 08:25 RB [id number] 10/01/24 08:27 RB Document 10/08/24 08:07 DS [id number] 10/08/24 08:13 DS 10/01/24 10/08/24 08:25 08:07 WC - Today's Visit Information Type of service Follow-up Visit Follow-up Visit (Physician/SCADA ENGINEER (Physician/SCADA ENGINEER ) ) Arrival Mode Ambulatory Ambulatory Transfer Assistance None Accompanied by Patient Identification Verified (Name & Yes Yes ) Patient Requires Transmission-Based No Precautions Vital Signs Temperature (97.8 F-99.1 F) 96.4 F L 96.7 F L Temperature Source Temporal Temporal Pulse Rate (60-100) 78 79 Pulse Location Monitor Monitor Respiratory Rate (12-18) 18 18 Respiratory rate source Observation Observation Oxygen Delivery Method Room Air Blood Pressure (90/60-120/80) 148/80 H 151/82 H Blood Pressure Mean (mm Hg) 102 105 Source Monitor Monitor Position Semi-Fowlers Sitting Blood Pressure Location Left Arm Left Arm History Since Last Visit- (Skip if this is Patient's initial visit) Have you changed medications since your No No last visit? Any new allergies or adverse reactions No No Had a fall/change in ADL's that may No No increase risk of falls Signs or symptoms of abuse and/or No No neglect since last visit Have you been in the hospital since your No No last visit? Has dressing in place as prescribed Yes Yes Has compression in place as prescribed No N/A Has offloadiing in place as prescribed No N/A Experienced any changes in pain level or No No management Left Footwear Regular Shoe Right Footwear Regular Shoe Pain Scale: 0-10 Numeric Is Patient Pain Free? Yes Yes - Nurse 1 - General Ulcer Measurement Start: 10/01/24 08:25 Freq: Status: Active Protocol: Activity Type Activity Date Activity User E-sign Co-sign Detail Recorded Client Recorded Date Recorded By Document 10/01/24 08:25 RB [id number] 10/01/24 08:27 RB Document 10/08/24 08:07 DS [id number] 10/08/24 08:13 DS 10/01/24 10/08/24 08:25 08:07 Wound Center Nurse 1 4-ABDOMEN INFERIOR -Combined with other wound No -Current Size (cm) - Length 0.1 0.1 -Current Size (cm) - Width 0.1 0.1 -Current Size (cm) - Depth 0.1 0.1 -Total Square Cm 0.01 0.01 -Date of Last Picture (Recall this 10/08/24 field) -Photo Taken Yes Yes -Tunneling No No -Undermining/Tunneling No No -Circular Undermining No No -Exudate Amt Small -Exudate Type Serosanguineous -Wound Margin Distinct, Distinct, Outline Outline Attached Attached -Granulation Amt Medium (34-66%) -Granulation Quality [place] -Slough/Fibrin Yes -Necrosis Amt Medium (34-66%) -Necrotic Tissue Type Adherent Slough -Structure Exposed N/A -Texture (Matilde-wound Skin Appearance) Assessed, Assessed Scarring -Moisture (Matilde-wound Skin Appearance) Assessed Assessed -Color (Matilde-wound Skin Appearance) Assessed Assessed -Temperature (Matilde-wound Skin No Abnormality No Abnormality Appearance) (Pt Warm) (Pt Warm) -Tenderness on Palpation (Matilde-wound No No Skin Appearance) -Ulcer Cleansing Wound Cleanser Soap and Water -Foul Odor after Cleansing No No -Anesthetic Used 5% Lidocaine 5% Lidocaine Gel Gel 3-ABDOMEN SUPERIOR -Combined with other wound No -Current Size (cm) - Length 0.1 0.1 -Current Size (cm) - Width 0.1 0.1 -Current Size (cm) - Depth 0.1 0.1 -Total Square Cm 0.01 0.01 -Date of Last Picture (Recall this 10/08/24 field) -Photo Taken Yes Yes -Tunneling No No -Undermining/Tunneling No No -Circular Undermining No No -Exudate Amt Medium -Exudate Type Serosanguineous -Wound Margin Distinct, Distinct, Outline Outline Attached Attached -Granulation Amt Medium (34-66%) -Granulation Quality [place] -Slough/Fibrin Yes -Necrosis Amt Medium (34-66%) -Necrotic Tissue Type Adherent Slough -Structure Exposed N/A -Texture (Matilde-wound Skin Appearance) Assessed Assessed -Moisture (Matilde-wound Skin Appearance) Assessed Assessed -Color (Matilde-wound Skin Appearance) Assessed Assessed -Temperature (Matilde-wound Skin No Abnormality No Abnormality Appearance) (Pt Warm) (Pt Warm) -Tenderness on Palpation (Matilde-wound No No Skin Appearance) -Ulcer Cleansing Soap and Water -Foul Odor after Cleansing No No -Anesthetic Used 5% Lidocaine 5% Lidocaine Gel Gel WC - Nurse 2 - General Ulcer CM Notes Start: 10/01/24 08:25 Freq: Status: Active Protocol: Activity Type Activity Date Activity User E-sign Co-sign Detail Recorded Client Recorded Date Recorded By Document 10/01/24 08:42 [id number] 10/01/24 08:50 GM Document 10/08/24 08:21 [id number] 10/08/24 08:25 10/01/24 08 08:42 08:21 Wound Center Nurse 2 4-ABDOMEN INFERIOR -Time 08:42 08:21 -Correct Patient Yes Yes -Correct Side, Site, Position Yes Yes -Correct Procedure Yes Yes -Procedure Performed Yes Yes -Type of Procedure Debridement Debridement -Clinical Debridement Subcutaneous Subcutaneous -Tissue Removed Subcutaneous Subcutaneous -Post Debridement (cm) - Length 0.6 0.4 -Post Debridement (cm) - Width 0.6 0.6 -Post Debridement (cm) - Depth 0.1 0.1 -Total Square (Post) (cm) 0.36 0.24 -Area of Debridement (cm) - Length 0.6 0.4 -Area of Debridement (cm) - Width 0.6 0.6 -Total Square (Area) (cm) 0.36 0.24 -Tunneling No No -Undermining/Tunneling No No -Circular Undermining No No -Wound/Ulcer Outcome Not Healed Not Healed -Ulcer Cleansing Rinsed/ Rinsed/ Irrigated with Irrigated with Saline Saline -Foul Odor after Cleansing No No -Bioengineered Tissue No No -Bleeding Controlled with Pressure Pressure -Treatment Response Procedure Procedure Tolerated Well Tolerated Well -Offloading No No -Debridement - Subq, 1st 20sq cm Yes Yes 3-ABDOMEN SUPERIOR -Time 08:43 08:21 -Correct Patient Yes Yes -Correct Side, Site, Position Yes Yes -Correct Procedure Yes No -Procedure Performed Yes No -Type of Procedure Debridement -Clinical Debridement Epidermis / Dermis -Tissue Removed Epidermis -Post Debridement (cm) - Length 0.3 0.1 -Post Debridement (cm) - Width 0.7 0.1 -Post Debridement (cm) - Depth 0.1 0.1 -Total Square (Post) (cm) 0.21 0.01 -Area of Debridement (cm) - Length 0.3 -Area of Debridement (cm) - Width 0.7 -Total Square (Area) (cm) 0.21 -Tunneling No No -Undermining/Tunneling No No -Circular Undermining No No -Wound/Ulcer Outcome Not Healed Not Healed -Ulcer Cleansing Rinsed/ Not Cleansed Irrigated with Saline -Foul Odor after Cleansing No No -Bioengineered Tissue No -Bleeding Controlled with Pressure NA -Treatment Response Procedure Tolerated Well -Offloading No No -Debridement - Open, 1st 20sq cm Yes No -Debridement - Subq, 1st 20sq cm No -Debridement - Muscle / Fascia, 1st No 20sq cm -Debridement - Bone, 1st 20sq cm No Pain Scale: 0-10 Numeric Is Patient Pain Free? Yes Yes - Nurse 3 - General Ulcer D/C NN Start: 10/01/24 08:25 Freq: Status: Active Protocol: Activity Type Activity Date Activity User E-sign Co-sign Detail Recorded Client Recorded Date Recorded By Document 10/01/24 09:03 [id number] 10/01/24 09:05 CP Document 10/08/24 08:53 [id number] [id number] 10/08/24 09:09 10/01/24 10/08/24 09:03 08:53 Wound Care Center Nurse 3 4-ABDOMEN INFERIOR -Ulcer Cleansing Rinsed/ Irrigated with Saline -Foul Odor after Cleansing No -Primary Dressing Applied Aquacel Extra, Collagen Powder Collagen Powder ,NonAdherent Contact Layer -Primary Dressing Covered/Secured with Dry Gauze, Dry Gauze Secured with Tape -Aquacel Extra 1 -Collagen Powder 1 1 3-ABDOMEN SUPERIOR -Primary Dressing Applied Aquacel Extra -Other Dressing collegen powder moistened aquacel extra adaptic -Aquacel Extra 1 Pain Scale: 0-10 Numeric Is Patient Pain Free? Yes Yes - Visit Discharge Discharge Condition Stable Stable Ambulatory Status Ambulatory Ambulatory Transportation Private Auto Private Auto Medication Reconcilliation completed & No provided to patient/care provider Clinical Summary of Care Provided Yes Yes Assessment/Plan Assessment/Plan (1) Non-healing surgical wound: CODE(S): T81.89XA - Other complications of procedures, not elsewhere classified, initial encounter QUALIFIERS: Encounter type: subsequent encounter Qualified Code(s): T81.89XD - Other complications of procedures, not elsewhere classified, subsequent encounter (2) Type 2 diabetes mellitus: CODE(S): E11.9 - Type 2 diabetes mellitus without complications QUALIFIERS: 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: without 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 supervisor use Diabetes mellitus complication status: with skin complications Diabetes mellitus complication detail: with other skin complication Qualified Code(s): E11.628 - Type 2 diabetes mellitus with other skin complications (3) History of colostomy reversal: CODE(S): Z98.890 - Other specified postprocedural states (4) Surgical wound breakdown: CODE(S): T81.31XA - Disruption of external operation (surgical) wound, not elsewhere classified, initial encounter QUALIFIERS: Encounter type: subsequent encounter Qualified Code(s): T81.31XD - Disruption of external operation (surgical) wound, not elsewhere classified, subsequent encounter (5) Localized swelling of abdominal wall: CODE(S): R22.2 - Localized swelling, mass and lump, trunk (6) Skin ulcer of abdomen with fat layer exposed: CODE(S): L98.492 - Non-pressure chronic ulcer of skin of other sites with fat layer exposed PLAN: Plan Debridement done as documented above, procedure was well-tolerated. Continues to show good improvement. Superior area with very minimal area left/skin tear. Inferior ulcer/wound with good improvement from his last visit. Concern for possible breakdown over area of retained surgical product. No drainage and currently superficial. Protect area with ABD and monitor closely. Plan is for surgical exploration if there is breakdown. Continue collagen powder, lightly moistened Aquacel extra daily. Cover with Adaptic and gauze. Continue other chronic wound care management. Moisturize skin adequately. Adequate protein intake and optimized diabetes control. He was advised to let us know if he had any further questions or concerns. Follow-up in a week or sooner if needed. This note was generated with [employer] dictation software. It may contain incorrect words, spelling, and punctuation that were not noted in checking the note before signing.
--- NOTE | 2024-10-09 08:18 | WC ---
PHOTO-ABD SUP 10/08/24
--- NOTE | 2024-10-09 08:22 | WC ---
PHOTO-ABD INF 10/08/24
[2024-10-15 08:43] VITALS: BP 134/85; PULSE 72; RESP 18; TEMP 36.1
--- NOTE | 2024-10-15 09:05 | PN.PCM_ITS ---
History of Present Illness Date of Service: 10/15/24 Chief Complaint: Non healing surgical wound History of Wound: Mr. Duque is a 63 yo being managed for surgical wound break down. Has been seen here since September 2023, 1 month after colostomy reversal. Progress of Wound: Slight breakdown over area of retained surgical product noted last week. Initially no drainage however, subsequently noted drainage which is now said to be improving. Otherwise, no acute concerns. Objective Data Objective Data Vital Signs: Vital Signs Temp Pulse Resp BP O2 Del Method 97 F L 72 18 134/85 H Room Air 10/15/24 08:43 10/15/24 08:43 10/15/24 08:43 10/15/24 08:43 10/08/24 08:07 Oxygen Delivery Method Room Air Charges/Coding Procedures Integumentary 111xxx-113xx: 90245 Hannah subq tissue 20 sq cm/< Physical Exam Const alert, oriented x3 and no apparent distress General Appearance: cooperative, comfortable and well kempt HEENT normocephalic, head/scalp atraumatic and hearing grossly normal bilaterally Eyes EOMs intact bilaterally General Eye: normal appearance of both eyes Neck full ROM and supple General: normal visual inspection Resp normal respiratory effort Effort and Inspection: able to speak in complete sentences GI soft to palpation and non-tender Skin Wounds: wounds noted size Size: See clinical note, bed granulating well, margins well approximated and other, no odor, open and surrounding erythema Neuro oriented x3, CN's II-XII intact bilaterally, moves all extremities and no focal motor deficits Psych mental status grossly normal, thought process normal, cooperative and affect normal Debridement Note Debridement Note Wound debrided: Abdomen (superior) Type of Debridement: Excisional debridement Anesthesia Used: 5% Lidocaine Gel Depth: Down to and including healthy tissue and in the subcutaneous layer Percentage of wound debrided: 100 Instrument Used: 3mm curette Tissue Removed: Devitalized tissue Severity: Fat Layer Exposed Amount of bleeding with debridement: Mild Bleeding Controlled with: Pressure Patient tolerated procedure: Patient tolerated procedure well Post-Debridement Measurements and Additional Note: Post-Debridement Measurements/Treatment [id number] - Nurse 1 - General Ulcer Assessment Start: 10/01/24 08:25 Freq: Status: Active Protocol: JUSTIN Activity Type Activity Date Activity User E-sign Co-sign Detail Recorded Client Recorded Date Recorded By Document 10/01/24 08:25 RB [id number] 10/01/24 08:27 RB Document 10/08/24 08:07 DS [id number] 10/08/24 08:13 DS Document 10/15/24 08:43 RB [id number] 10/15/24 08:46 RB 10/01/24 10/08/24 10/15/24 08:25 08:07 08:43 WC - Today's Visit Information Type of service Follow-up Visit Follow-up Visit Follow-up Visit (Physician/[employer] (Physician/[employer] (Physician/[employer] ) ) ) Arrival Mode Ambulatory Ambulatory Ambulatory Transfer Assistance None None Accompanied by Patient Identification Verified (Name & Yes Yes Yes ) Patient Requires Transmission-Based No No Precautions Vital Signs Temperature (97.8 F-99.1 F) 96.4 F L 96.7 F L 97 F L Temperature Source Temporal Temporal Temporal Pulse Rate (60-100) 78 79 72 Pulse Location Monitor Monitor Monitor Respiratory Rate (12-18) 18 18 18 Respiratory rate source Observation Observation Observation Oxygen Delivery Method Room Air Blood Pressure (90/60-120/80) 148/80 H 151/82 H 134/85 H Blood Pressure Mean (mm Hg) 102 105 101 Source Monitor Monitor Monitor Position Semi-Fowlers Sitting Semi-Fowlers Blood Pressure Location Left Arm Left Arm Left Arm History Since Last Visit- (Skip if this is Patient's initial visit) Have you changed medications since your No No No last visit? Any new allergies or adverse reactions No No No Had a fall/change in ADL's that may No No No increase risk of falls Signs or symptoms of abuse and/or No No No neglect since last visit Have you been in the hospital since your No No No last visit? Has dressing in place as prescribed Yes Yes Yes Has compression in place as prescribed No N/A N/A Has offloadiing in place as prescribed No N/A N/A Experienced any changes in pain level or No No No management Left Footwear Regular Shoe Right Footwear Regular Shoe Pain Scale: 0-10 Numeric Is Patient Pain Free? Yes Yes Yes - Nurse 1 - General Ulcer Measurement Start: 10/01/24 08:25 Freq: Status: Active Protocol: Activity Type Activity Date Activity User E-sign Co-sign Detail Recorded Client Recorded Date Recorded By Document 10/01/24 08:25 RB [id number] 10/01/24 08:27 RB Document 10/08/24 08:07 DS [id number] 10/08/24 08:13 DS Document 10/15/24 08:43 RB [id number] 10/15/24 08:46 RB 10/01/24 10/08/24 10/15/24 08:25 08:07 08:43 Wound Center Nurse 1 4-ABDOMEN INFERIOR -Combined with other wound No No -Current Size (cm) - Length 0.1 0.1 0.1 -Current Size (cm) - Width 0.1 0.1 0.1 -Current Size (cm) - Depth 0.1 0.1 0.1 -Total Square Cm 0.01 0.01 0.01 -Date of Last Picture (Recall this 10/08/24 field) -Photo Taken Yes Yes Yes -Tunneling No No No -Undermining/Tunneling No No No -Circular Undermining No No No -Exudate Amt Small Medium -Exudate Type Serosanguineous Serosanguineous -Wound Margin Distinct, Distinct, Distinct, Outline Outline Outline Attached Attached Attached -Granulation Amt Medium (34-66%) Medium (34-66%) -Granulation Quality [place] -Slough/Fibrin Yes Yes -Necrosis Amt Medium (34-66%) Small (1-33%) -Necrotic Tissue Type Adherent Slough Adherent Slough -Structure Exposed N/A N/A -Texture (Matilde-wound Skin Appearance) Assessed, Assessed Scarring Scarring -Moisture (Matilde-wound Skin Appearance) Assessed Assessed Assessed -Color (Matilde-wound Skin Appearance) Assessed Assessed Assessed -Temperature (Matilde-wound Skin No Abnormality No Abnormality No Abnormality Appearance) (Pt Warm) (Pt Warm) (Pt Warm) -Tenderness on Palpation (Matilde-wound No No No Skin Appearance) -Ulcer Cleansing Wound Cleanser Soap and Water Wound Cleanser -Foul Odor after Cleansing No No No -Anesthetic Used 5% Lidocaine 5% Lidocaine 5% Lidocaine Gel Gel Gel 3-ABDOMEN SUPERIOR -Combined with other wound No No -Current Size (cm) - Length 0.1 0.1 1.3 -Current Size (cm) - Width 0.1 0.1 1 -Current Size (cm) - Depth 0.1 0.1 0.1 -Total Square Cm 0.01 0.01 1.3 -Date of Last Picture (Recall this 10/08/24 field) -Photo Taken Yes Yes Yes -Epithelialization Large 67-100% -Tunneling No No No -Undermining/Tunneling No No No -Circular Undermining No No No -Exudate Amt Medium Medium -Exudate Type Serosanguineous Serosanguineous -Wound Margin Distinct, Distinct, Distinct, Outline Outline Outline Attached Attached Attached -Granulation Amt Medium (34-66%) Medium (34-66%) -Granulation Quality [place] -Slough/Fibrin Yes Yes -Necrosis Amt Medium (34-66%) Small (1-33%) -Necrotic Tissue Type Adherent Slough Adherent Slough -Structure Exposed N/A N/A -Texture (Matilde-wound Skin Appearance) Assessed Assessed Assessed, Scarring -Moisture (Matilde-wound Skin Appearance) Assessed Assessed Assessed -Color (Matilde-wound Skin Appearance) Assessed Assessed Assessed -Temperature (Matilde-wound Skin No Abnormality No Abnormality No Abnormality Appearance) (Pt Warm) (Pt Warm) (Pt Warm) -Tenderness on Palpation (Matilde-wound No No No Skin Appearance) -Ulcer Cleansing Soap and Water Wound Cleanser -Foul Odor after Cleansing No No No -Anesthetic Used 5% Lidocaine 5% Lidocaine 5% Lidocaine Gel Gel Gel WC - Nurse 2 - General Ulcer CM Notes Start: 10/01/24 08:25 Freq: Status: Active Protocol: Activity Type Activity Date Activity User E-sign Co-sign Detail Recorded Client Recorded Date Recorded By Document 10/01/24 08:42 [id number] 10/01/24 08:50 Document 10/08/24 08:21 [id number] 10/08/24 08:25 Document 10/15/24 08:59 [id number] 10/15/24 09:04 10/01/24 10/08/24 10/15/24 08:42 08:21 08:59 Wound Center Nurse 2 4-ABDOMEN INFERIOR -Time 08:42 08:21 08:59 -Correct Patient Yes Yes Yes -Correct Side, Site, Position Yes Yes Yes -Correct Procedure Yes Yes Yes -Procedure Performed Yes Yes Yes -Type of Procedure Debridement Debridement Debridement -Clinical Debridement Subcutaneous Subcutaneous Subcutaneous -Tissue Removed Subcutaneous Subcutaneous Subcutaneous -Post Debridement (cm) - Length 0.6 0.4 0.5 -Post Debridement (cm) - Width 0.6 0.6 0.6 -Post Debridement (cm) - Depth 0.1 0.1 0.1 -Total Square (Post) (cm) 0.36 0.24 0.30 -Area of Debridement (cm) - Length 0.6 0.4 0.5 -Area of Debridement (cm) - Width 0.6 0.6 0.6 -Total Square (Area) (cm) 0.36 0.24 0.30 -Tunneling No No No -Undermining/Tunneling No No -Circular Undermining No No No -Wound/Ulcer Outcome Not Healed Not Healed Not Healed -Ulcer Cleansing Rinsed/ Rinsed/ Rinsed/ Irrigated with Irrigated with Irrigated with Saline Saline Saline -Foul Odor after Cleansing No No No -Bioengineered Tissue No No No -Bleeding Controlled with Pressure Pressure Pressure -Treatment Response Procedure Procedure Procedure Tolerated Well Tolerated Well Tolerated Well -Offloading No No No -Debridement - Subq, 1st 20sq cm Yes Yes No 3-ABDOMEN SUPERIOR -Time 08:43 08:21 09:00 -Correct Patient Yes Yes Yes -Correct Side, Site, Position Yes Yes Yes -Correct Procedure Yes No Yes -Procedure Performed Yes No Yes -Type of Procedure Debridement Debridement -Clinical Debridement Epidermis / Subcutaneous Dermis -Tissue Removed Epidermis Subcutaneous -Post Debridement (cm) - Length 0.3 0.1 0.2 -Post Debridement (cm) - Width 0.7 0.1 0.3 -Post Debridement (cm) - Depth 0.1 0.1 0.1 -Total Square (Post) (cm) 0.21 0.01 0.06 -Area of Debridement (cm) - Length 0.3 0.2 -Area of Debridement (cm) - Width 0.7 0.3 -Total Square (Area) (cm) 0.21 0.06 -Tunneling No No No -Undermining/Tunneling No No No -Circular Undermining No No No -Wound/Ulcer Outcome Not Healed Not Healed Not Healed -Ulcer Cleansing Rinsed/ Not Cleansed Rinsed/ Irrigated with Irrigated with Saline Saline -Foul Odor after Cleansing No No No -Bioengineered Tissue No No -Bleeding Controlled with Pressure NA Pressure -Treatment Response Procedure Procedure Tolerated Well Tolerated Well -Offloading No No No -Debridement - Open, 1st 20sq cm Yes No -Debridement - Subq, 1st 20sq cm No Yes -Debridement - Muscle / Fascia, 1st No 20sq cm -Debridement - Bone, 1st 20sq cm No Pain Scale: 0-10 Numeric Is Patient Pain Free? Yes Yes Yes - Nurse 3 - General Ulcer D/C NN Start: 10/01/24 08:25 Freq: Status: Active Protocol: Activity Type Activity Date Activity User E-sign Co-sign Detail Recorded Client Recorded Date Recorded By Document 10/01/24 09:03 CP [id number] 10/01/24 09:05 Document 10/08/24 08:53 KW [id number] 10/08/24 09:09 KW 10/01/24 10/08/24 09:03 08:53 Wound Care Center Nurse 3 4-ABDOMEN INFERIOR -Ulcer Cleansing Rinsed/ Irrigated with Saline -Foul Odor after Cleansing No -Primary Dressing Applied Aquacel Extra, Collagen Powder Collagen Powder ,NonAdherent Contact Layer -Primary Dressing Covered/Secured with Dry Gauze, Dry Gauze Secured with Tape -Aquacel Extra 1 -Collagen Powder 1 1 3-ABDOMEN SUPERIOR -Primary Dressing Applied Aquacel Extra -Other Dressing collegen powder moistened aquacel extra adaptic -Aquacel Extra 1 Pain Scale: 0-10 Numeric Is Patient Pain Free? Yes Yes WC - Visit Discharge Discharge Condition Stable Stable Ambulatory Status Ambulatory Ambulatory Transportation Private Auto Private Auto Medication Reconcilliation completed & No provided to patient/care provider Clinical Summary of Care Provided Yes Yes Additional Wound Wound debrided: Abdomen (inferior) Type of Debridement: Excisional debridement Anesthesia Used: 5% Lidocaine Gel Depth: Down to and including healthy tissue and in the subcutaneous layer Percentage of wound debrided: 100 Instrument Used: 3mm curette Tissue Removed: Devitalized tissue Severity: Fat Layer Exposed Amount of bleeding with debridement: Mild Bleeding Controlled with: Pressure Patient tolerated procedure: Patient tolerated procedure well Assessment/Plan Assessment/Plan (1) Non-healing surgical wound: CODE(S): T81.89XA - Other complications of procedures, not elsewhere classified, initial encounter QUALIFIERS: Encounter type: subsequent encounter Qualified Code(s): T81.89XD - Other complications of procedures, not elsewhere classified, subsequent encounter (2) Type 2 diabetes mellitus: CODE(S): E11.9 - Type 2 diabetes mellitus without complications QUALIFIERS: Diabetes mellitus [facility] insulin use: without [facility] use Diabetes mellitus complication status: with skin complications Diabetes mellitus complication detail: with other skin complication Qualified Code(s): E11.628 - Type 2 diabetes mellitus with other skin complications (3) History of colostomy reversal: CODE(S): Z98.890 - Other specified postprocedural states (4) Surgical wound breakdown: CODE(S): T81.31XA - Disruption of external operation (surgical) wound, not elsewhere classified, initial encounter QUALIFIERS: Encounter type: subsequent encounter Qualified Code(s): T81.31XD - Disruption of external operation (surgical) wound, not elsewhere classified, subsequent encounter (5) Localized swelling of abdominal wall: CODE(S): R22.2 - Localized swelling, mass and lump, trunk (6) Skin ulcer of abdomen with fat layer exposed: CODE(S): L98.492 - Non-pressure chronic ulcer of skin of other sites with fat layer exposed PLAN: Plan Debridement done as documented above, procedure was well-tolerated. Stable ulcers. As above, drainage from area of surgical clip retention however, now said to be improving. Will continue to monitor this closely. Protect area with ABD and monitor closely. Plan is for surgical exploration if there is further breakdown. Continue collagen powder, lightly moistened Aquacel extra daily. Cover with Adaptic and gauze. Continue other chronic wound care management. Moisturize skin adequately. Adequate protein intake and optimized diabetes control. He was advised to let us know if he had any further questions or concerns. Follow-up in a week or sooner if needed. This note was generated with [employer] software. It may contain incorrect words, spelling, and punctuation that were not noted in checking the note before signing.
--- NOTE | 2024-10-16 08:34 | WC ---
PHOTO-SUP ABD 10/15/24
--- NOTE | 2024-10-19 08:31 | WC ---
PHOTO-SUP ABD 10/15/24
[2024-10-22 08:14] VITALS: BP 146/88; PULSE 79; RESP 16; TEMP 36.7
--- NOTE | 2024-10-22 08:39 | PCM.WC.PN ---
History of Present Illness Date of Service: 10/22/24 Chief Complaint: Non healing surgical wound History of Wound: Mr. Duque is a 63 yo being managed for surgical wound break down. Has been seen here since September 2023, 1 month after colostomy reversal. Progress of Wound: No acute concerns reported at this time. Minimal areas noted to both. Objective Data Objective Data Vital Signs: Vital Signs Temp Pulse Resp BP O2 Del Method 98.0 F 79 16 146/88 H Room Air 10/22/24 08:14 10/22/24 08:14 10/22/24 08:14 10/22/24 08:14 10/22/24 08:14 Oxygen Delivery Method Room Air Charges/Coding Visit Charges Office Visits / Consults: [id number] OV L3 Est 20min Physical Exam Const alert, oriented x3 and no apparent distress General Appearance: cooperative, comfortable and well kempt HEENT normocephalic, head/scalp atraumatic and hearing grossly normal bilaterally Eyes EOMs intact bilaterally General Eye: normal appearance of both eyes Neck full ROM and supple General: normal visual inspection Resp normal respiratory effort Effort and Inspection: able to speak in complete sentences GI soft to palpation and non-tender Skin Wounds: wounds noted size Size: See clinical note, bed granulating well, margins well approximated and other, no odor, open and surrounding erythema Neuro oriented x3, CN's II-XII intact bilaterally, moves all extremities and no focal motor deficits Psych mental status grossly normal, thought process normal, cooperative and affect normal Debridement Note Debridement Note No debridement was completed: No debridement was completed today Post-Debridement Measurements and Additional Note: Post-Debridement Measurements/Treatment WC - Nurse 1 - General Ulcer Assessment Start: 10/01/24 08:25 Freq: Status: Active Protocol: [email or web address] Activity Type Activity Date Activity User E-sign Co-sign Detail Recorded Client Recorded Date Recorded By Document 10/01/24 08:25 RB [id number] 10/01/24 08:27 RB Document 10/08/24 08:07 DS [id number] 10/08/24 08:13 DS Document 10/15/24 08:43 RB [id number] 10/15/24 08:46 RB Document 10/22/24 08:14 GM [id number] 10/22/24 08:18 GM 10/01/24 10/08/24 10/15/24 08:25 08:07 08:43 [facility] Visit Information Type of service Follow-up Visit Follow-up Visit Follow-up Visit (Physician/MOLD CAR PUSHER (Physician/MOLD CAR PUSHER (Physician/MOLD CAR PUSHER ) ) ) Arrival Mode Ambulatory Ambulatory Ambulatory Transfer Assistance None None Accompanied by Patient Identification Verified (Name & Yes Yes Yes ) Patient Requires Transmission-Based No No Precautions Vital Signs Temperature (97.8 F-99.1 F) 96.4 F L 96.7 F L 97 F L Temperature Source Temporal Temporal Temporal Pulse Rate (60-100) 78 79 72 Pulse Location Monitor Monitor Monitor Respiratory Rate (12-18) 18 18 18 Respiratory rate source Observation Observation Observation Oxygen Delivery Method Room Air Blood Pressure (90/60-120/80) 148/80 H 151/82 H 134/85 H Blood Pressure Mean (mm Hg) 102 105 101 Source Monitor Monitor Monitor Position Semi-Fowlers Sitting Semi-Fowlers Blood Pressure Location Left Arm Left Arm Left Arm History Since Last Visit- (Skip if this is Patient's initial visit) Have you changed medications since your No No No last visit? Any new allergies or adverse reactions No No No Had a fall/change in ADL's that may No No No increase risk of falls Signs or symptoms of abuse and/or No No No neglect since last visit Have you been in the hospital since your No No No last visit? Has dressing in place as prescribed Yes Yes Yes Has compression in place as prescribed No N/A N/A Has offloadiing in place as prescribed No N/A N/A Experienced any changes in pain level or No No No management Left Footwear Regular Shoe Right Footwear Regular Shoe Pain Scale: 0-10 Numeric Is Patient Pain Free? Yes Yes Yes 10/22/24 08:14 [facility] Visit Information Type of service Follow-up Visit (Physician/MOLD CAR PUSHER ) Arrival Mode Ambulatory Transfer Assistance Accompanied by Patient Identification Verified (Name & Yes ) Patient Requires Transmission-Based No Precautions Vital Signs Temperature (97.8 F-99.1 F) 98.0 F Temperature Source Temporal Pulse Rate (60-100) 79 Pulse Location Monitor Respiratory Rate (12-18) 16 Respiratory rate source Observation Oxygen Delivery Method Room Air Blood Pressure (90/60-120/80) 146/88 H Blood Pressure Mean (mm Hg) 107 Source Monitor Position Sitting Blood Pressure Location Left Arm History Since Last Visit- (Skip if this is Patient's initial visit) Have you changed medications since your No last visit? Any new allergies or adverse reactions No Had a fall/change in ADL's that may No increase risk of falls Signs or symptoms of abuse and/or No neglect since last visit Have you been in the hospital since your No last visit? Has dressing in place as prescribed Yes Has compression in place as prescribed N/A Has offloadiing in place as prescribed N/A Experienced any changes in pain level or No management Left Footwear Right Footwear Pain Scale: 0-10 Numeric Is Patient Pain Free? Yes WC - Nurse 1 - General Ulcer Measurement Start: 10/01/24 08:25 Freq: Status: Active Protocol: Activity Type Activity Date Activity User E-sign Co-sign Detail Recorded Client Recorded Date Recorded By Document 10/01/24 08:25 RB [id number] 10/01/24 08:27 RB Document 10/08/24 08:07 DS [id number] 10/08/24 08:13 DS Document 10/15/24 08:43 RB [id number] 10/15/24 08:46 RB Document 10/22/24 08:14 GM [id number] 10/22/24 08:18 GM 10/01/24 10/08/24 10/15/24 08:25 08:07 08:43 Wound Center Nurse 1 4-ABDOMEN INFERIOR -Combined with other wound No No -Current Size (cm) - Length 0.1 0.1 0.1 -Current Size (cm) - Width 0.1 0.1 0.1 -Current Size (cm) - Depth 0.1 0.1 0.1 -Total Square Cm 0.01 0.01 0.01 -Date of Last Picture (Recall this 10/08/24 field) -Photo Taken Yes Yes Yes -Epithelialization -Tunneling No No No -Undermining/Tunneling No No No -Circular Undermining No No No -Exudate Amt Small Medium -Exudate Type Serosanguineous Serosanguineous -Wound Margin Distinct, Distinct, Distinct, Outline Outline Outline Attached Attached Attached -Granulation Amt Medium (34-66%) Medium (34-66%) -Granulation Quality [place] -Slough/Fibrin Yes Yes -Necrosis Amt Medium (34-66%) Small (1-33%) -Necrotic Tissue Type Adherent Slough Adherent Slough -Structure Exposed N/A N/A -Texture (Matilde-wound Skin Appearance) Assessed, Assessed Scarring Scarring -Moisture (Matilde-wound Skin Appearance) Assessed Assessed Assessed -Color (Matilde-wound Skin Appearance) Assessed Assessed Assessed -Temperature (Matilde-wound Skin No Abnormality No Abnormality No Abnormality Appearance) (Pt Warm) (Pt Warm) (Pt Warm) -Tenderness on Palpation (Matilde-wound No No No Skin Appearance) -Ulcer Cleansing Wound Cleanser Soap and Water Wound Cleanser -Foul Odor after Cleansing No No No -Anesthetic Used 5% Lidocaine 5% Lidocaine 5% Lidocaine Gel Gel Gel 3-ABDOMEN SUPERIOR -Combined with other wound No No -Current Size (cm) - Length 0.1 0.1 1.3 -Current Size (cm) - Width 0.1 0.1 1 -Current Size (cm) - Depth 0.1 0.1 0.1 -Total Square Cm 0.01 0.01 1.3 -Date of Last Picture (Recall this 10/08/24 field) -Photo Taken Yes Yes Yes -Epithelialization Large 67-100% -Tunneling No No No -Undermining/Tunneling No No No -Circular Undermining No No No -Exudate Amt Medium Medium -Exudate Type Serosanguineous Serosanguineous -Wound Margin Distinct, Distinct, Distinct, Outline Outline Outline Attached Attached Attached -Granulation Amt Medium (34-66%) Medium (34-66%) -Granulation Quality [place] Willards -Slough/Fibrin Yes Yes -Necrosis Amt Medium (34-66%) Small (1-33%) -Necrotic Tissue Type Adherent Slough Adherent Slough -Structure Exposed N/A N/A -Texture (Matilde-wound Skin Appearance) Assessed Assessed Assessed, Scarring -Moisture (Matilde-wound Skin Appearance) Assessed Assessed Assessed -Color (Matilde-wound Skin Appearance) Assessed Assessed Assessed -Temperature (Matilde-wound Skin No Abnormality No Abnormality No Abnormality Appearance) (Pt Warm) (Pt Warm) (Pt Warm) -Tenderness on Palpation (Matilde-wound No No No Skin Appearance) -Ulcer Cleansing Soap and Water Wound Cleanser -Foul Odor after Cleansing No No No -Anesthetic Used 5% Lidocaine 5% Lidocaine 5% Lidocaine Gel Gel Gel -Wound Comment(s) 10/22/24 08:14 Wound Center Nurse 1 4-ABDOMEN INFERIOR -Combined with other wound -Current Size (cm) - Length 0.2 -Current Size (cm) - Width 0.2 -Current Size (cm) - Depth 0.1 -Total Square Cm 0.04 -Date of Last Picture (Recall this 10/22/24 field) -Photo Taken Yes -Epithelialization Large 67-100% -Tunneling No -Undermining/Tunneling No -Circular Undermining No -Exudate Amt Small -Exudate Type Yellow/Green -Wound Margin Distinct, Outline Attached -Granulation Amt Small (1-33%) -Granulation Quality [place] -Slough/Fibrin No -Necrosis Amt None Present (0 %) -Necrotic Tissue Type -Structure Exposed -Texture (Matilde-wound Skin Appearance) Assessed -Moisture (Matilde-wound Skin Appearance) Assessed -Color (Matilde-wound Skin Appearance) Assessed -Temperature (Matilde-wound Skin No Abnormality Appearance) (Pt Warm) -Tenderness on Palpation (Matilde-wound No Skin Appearance) -Ulcer Cleansing Rinsed/ Irrigated with Saline -Foul Odor after Cleansing No -Anesthetic Used 5% Lidocaine Gel 3-ABDOMEN SUPERIOR -Combined with other wound -Current Size (cm) - Length 0.1 -Current Size (cm) - Width 0.1 -Current Size (cm) - Depth 0.1 -Total Square Cm 0.01 -Date of Last Picture (Recall this 10/22/24 field) -Photo Taken Yes -Epithelialization Large 67-100% -Tunneling No -Undermining/Tunneling No -Circular Undermining No -Exudate Amt None Present -Exudate Type -Wound Margin Distinct, Outline Attached -Granulation Amt -Granulation Quality -Slough/Fibrin -Necrosis Amt -Necrotic Tissue Type -Structure Exposed -Texture (Matilde-wound Skin Appearance) Assessed -Moisture (Matilde-wound Skin Appearance) Assessed -Color (Matilde-wound Skin Appearance) Assessed -Temperature (Matilde-wound Skin No Abnormality Appearance) (Pt Warm) -Tenderness on Palpation (Matilde-wound No Skin Appearance) -Ulcer Cleansing Rinsed/ Irrigated with Saline -Foul Odor after Cleansing No -Anesthetic Used -Wound Comment(s) looks healed WC - Nurse 2 - General Ulcer CM Notes Start: 10/01/24 08:25 Freq: Status: Active Protocol: Activity Type Activity Date Activity User E-sign Co-sign Detail Recorded Client Recorded Date Recorded By Document 10/01/24 08:42 [id number] 10/01/24 08:50 GM Document 10/08/24 08:21 GM [id number] 10/08/24 08:25 GM Document 10/15/24 08:59 [id number] 10/15/24 09:04 GM Document 10/22/24 08:26 GM [id number] 10/22/24 08:29 10/01/24 10/08/24 10/15/24 08:42 08:21 08:59 Wound Center Nurse 2 4-ABDOMEN INFERIOR -Time 08:42 08:21 08:59 -Correct Patient Yes Yes Yes -Correct Side, Site, Position Yes Yes Yes -Correct Procedure Yes Yes Yes -Procedure Performed Yes Yes Yes -Type of Procedure Debridement Debridement Debridement -Clinical Debridement Subcutaneous Subcutaneous Subcutaneous -Tissue Removed Subcutaneous Subcutaneous Subcutaneous -Post Debridement (cm) - Length 0.6 0.4 0.5 -Post Debridement (cm) - Width 0.6 0.6 0.6 -Post Debridement (cm) - Depth 0.1 0.1 0.1 -Total Square (Post) (cm) 0.36 0.24 0.30 -Area of Debridement (cm) - Length 0.6 0.4 0.5 -Area of Debridement (cm) - Width 0.6 0.6 0.6 -Total Square (Area) (cm) 0.36 0.24 0.30 -Tunneling No No No -Undermining/Tunneling No No -Circular Undermining No No No -Wound/Ulcer Outcome Not Healed Not Healed Not Healed -Ulcer Cleansing Rinsed/ Rinsed/ Rinsed/ Irrigated with Irrigated with Irrigated with Saline Saline Saline -Foul Odor after Cleansing No No No -Bioengineered Tissue No No No -Bleeding Controlled with Pressure Pressure Pressure -Treatment Response Procedure Procedure Procedure Tolerated Well Tolerated Well Tolerated Well -Offloading No No No -Debridement - Subq, 1st 20sq cm Yes Yes No 3-ABDOMEN SUPERIOR -Time 08:43 08:21 09:00 -Correct Patient Yes Yes Yes -Correct Side, Site, Position Yes Yes Yes -Correct Procedure Yes No Yes -Procedure Performed Yes No Yes -Type of Procedure Debridement Debridement -Clinical Debridement Epidermis / Subcutaneous Dermis -Tissue Removed Epidermis Subcutaneous -Post Debridement (cm) - Length 0.3 0.1 0.2 -Post Debridement (cm) - Width 0.7 0.1 0.3 -Post Debridement (cm) - Depth 0.1 0.1 0.1 -Total Square (Post) (cm) 0.21 0.01 0.06 -Area of Debridement (cm) - Length 0.3 0.2 -Area of Debridement (cm) - Width 0.7 0.3 -Total Square (Area) (cm) 0.21 0.06 -Tunneling No No No -Undermining/Tunneling No No No -Circular Undermining No No No -Wound/Ulcer Outcome Not Healed Not Healed Not Healed -Ulcer Cleansing Rinsed/ Not Cleansed Rinsed/ Irrigated with Irrigated with Saline Saline -Foul Odor after Cleansing No No No -Bioengineered Tissue No No -Bleeding Controlled with Pressure NA Pressure -Treatment Response Procedure Procedure Tolerated Well Tolerated Well -Offloading No No No -Debridement - Open, 1st 20sq cm Yes No -Debridement - Subq, 1st 20sq cm No Yes -Debridement - Muscle / Fascia, 1st No 20sq cm -Debridement - Bone, 1st 20sq cm No Pain Scale: 0-10 Numeric Is Patient Pain Free? Yes Yes Yes 10/22/24 08:26 Wound Center Nurse 2 4-ABDOMEN INFERIOR -Time 08:28 -Correct Patient Yes -Correct Side, Site, Position Yes -Correct Procedure No -Procedure Performed No -Type of Procedure -Clinical Debridement -Tissue Removed Subcutaneous -Post Debridement (cm) - Length 0.1 -Post Debridement (cm) - Width 0.1 -Post Debridement (cm) - Depth 0.1 -Total Square (Post) (cm) 0.01 -Area of Debridement (cm) - Length 0.1 -Area of Debridement (cm) - Width 0.1 -Total Square (Area) (cm) 0.01 -Tunneling No -Undermining/Tunneling No -Circular Undermining No -Wound/Ulcer Outcome Not Healed -Ulcer Cleansing -Foul Odor after Cleansing No -Bioengineered Tissue No -Bleeding Controlled with NA -Treatment Response -Offloading No -Debridement - Subq, 1st 20sq cm No 3-ABDOMEN SUPERIOR -Time 08:29 -Correct Patient Yes -Correct Side, Site, Position Yes -Correct Procedure No -Procedure Performed No -Type of Procedure -Clinical Debridement -Tissue Removed -Post Debridement (cm) - Length 0.1 -Post Debridement (cm) - Width 0.1 -Post Debridement (cm) - Depth 0.1 -Total Square (Post) (cm) 0.01 -Area of Debridement (cm) - Length -Area of Debridement (cm) - Width -Total Square (Area) (cm) -Tunneling No -Undermining/Tunneling No -Circular Undermining No -Wound/Ulcer Outcome Not Healed -Ulcer Cleansing Not Cleansed -Foul Odor after Cleansing No -Bioengineered Tissue No -Bleeding Controlled with NA -Treatment Response -Offloading -Debridement - Open, 1st 20sq cm -Debridement - Subq, 1st 20sq cm -Debridement - Muscle / Fascia, 1st 20sq cm -Debridement - Bone, 1st 20sq cm Pain Scale: 0-10 Numeric Is Patient Pain Free? Yes - Nurse 3 - General Ulcer D/C NN Start: 10/01/24 08:25 Freq: Status: Active Protocol: Activity Type Activity Date Activity User E-sign Co-sign Detail Recorded Client Recorded Date Recorded By Document 10/01/24 09:03 CP [id number] 10/01/24 09:05 CP Document 10/08/24 08:53 KW [id number] 10/08/24 09:09 KW Document 10/15/24 09:16 [id number] 10/15/24 09:17 10/01/24 10/08/24 10/15/24 09:03 08:53 09:16 Wound Care Center Nurse 3 4-ABDOMEN INFERIOR -Ulcer Cleansing Rinsed/ Not Cleansed Irrigated with Saline -Foul Odor after Cleansing No No -Primary Dressing Applied Aquacel Extra, Collagen Powder Collagen Powder Collagen Powder ,NonAdherent ,NonAdherent Contact Layer Contact Layer -Primary Dressing Covered/Secured with Dry Gauze, Dry Gauze Secured with Secured with Tape Tape -Other Covering abd -Aquacel Extra 1 -Collagen Powder 1 1 1 3-ABDOMEN SUPERIOR -Ulcer Cleansing Not Cleansed -Foul Odor after Cleansing No -Primary Dressing Applied Aquacel Extra -Other Dressing collegen powder moistened aquacel extra adaptic -Primary Dressing Covered/Secured with Other -Other Covering used remainder of supplies -Aquacel Extra 1 Pain Scale: 0-10 Numeric Is Patient Pain Free? Yes Yes Yes - Visit Discharge Discharge Condition Stable Stable Stable Ambulatory Status Ambulatory Ambulatory Ambulatory Transportation Private Auto Private Auto Private Auto Medication Reconcilliation completed & No provided to patient/care provider Clinical Summary of Care Provided Yes Yes Assessment/Plan Assessment/Plan (1) Non-healing surgical wound: CODE(S): T81.89XA - Other complications of procedures, not elsewhere classified, initial encounter QUALIFIERS: Encounter type: subsequent encounter Qualified Code(s): T81.89XD - Other complications of procedures, not elsewhere classified, subsequent encounter (2) Type 2 diabetes mellitus: CODE(S): E11.9 - Type 2 diabetes mellitus without complications QUALIFIERS: Diabetes mellitus professor of biochemistry insulin use: without intermediate use Diabetes mellitus complication status: with skin complications Diabetes mellitus complication detail: with other skin complication Qualified Code(s): E11.628 - Type 2 diabetes mellitus with other skin complications (3) History of colostomy reversal: CODE(S): Z98.890 - Other specified postprocedural states (4) Surgical wound breakdown: CODE(S): T81.31XA - Disruption of external operation (surgical) wound, not elsewhere classified, initial encounter QUALIFIERS: Encounter type: subsequent encounter Qualified Code(s): T81.31XD - Disruption of external operation (surgical) wound, not elsewhere classified, subsequent encounter (5) Localized swelling of abdominal wall: CODE(S): R22.2 - Localized swelling, mass and lump, trunk (6) Skin ulcer of abdomen with fat layer exposed: CODE(S): L98.492 - Non-pressure chronic ulcer of skin of other sites with fat layer exposed PLAN: Plan No debridement completed today. Minimal area left. No significant drainage from area of retained surgical product. Continue to protect area with ABD/gauze and monitor closely. Plan is for surgical exploration if there is further breakdown. For now, they were advised to moisturize skin adequately using either Vaseline or Aquaphor after shower. Lightly moistened Promogran to the area of skin opening/tears, cover with Adaptic and gauze. Continue other chronic wound care management. Adequate protein intake and optimized diabetes control. He was advised to let us know if he had any further questions or concerns. Follow-up in 2 weeks or sooner if needed. This note was generated with [employer] software. It may contain incorrect words, spelling, and punctuation that were not noted in checking the note before signing.
--- NOTE | 2024-10-23 08:35 | WC ---
PHOTO-SUPERIOR ABD 10/22/24
--- NOTE | 2024-10-23 08:37 | WC ---
PHOTO-10/22/24 INFERIOR ABD
== END 2024-10-25 23:59 | disposition home or self-care (01) ==
LOC: WC 08:00
PROVIDERS: PCP Internal Medicine; Referring Provider Internal Medicine; Visit Provider Internal Medicine
DX: E11.628 Type 2 diabetes mellitus with other skin complications (principal); L98.492 Non-pressure chronic ulcer of skin of other sites with fat layer exposed; R22.2 Localized swelling, mass and lump, trunk; T81.89XD Other complications of procedures, not elsewhere classified, subsequent encounter; T81.31XD Disruption of external operation (surgical) wound, not elsewhere classified, subsequent encounter
CPT/HCPCS: 11042; 97597; 99213; G0463

== ENCOUNTER 2024-11-19 08:15 | Outpatient (RCR) | payer OTHER, SELFPAY ==
[2024-11-05 08:02] VITALS: BP 142/85; PULSE 77; RESP 18; TEMP 35.9
--- NOTE | 2024-11-05 08:44 | PCM.WC.PN ---
History of Present Illness Date of Service: 11/05/24 Chief Complaint: Non healing surgical wound History of Wound: Mr. Duque is a 63 yo being managed for surgical wound break down. Has been seen here since September 2023, 1 month after colostomy reversal. Progress of Wound: No acute concerns reported at this time. Superior area of ulceration still with minimal area/skin breakdown. Inferior area with new area of opening which they were not aware of until today. Have been applying Promogran daily and moisturizing as recommended. Objective Data Objective Data Vital Signs: Vital Signs Temp Pulse Resp BP O2 Del Method 96.7 F L 77 18 142/85 H Room Air 11/05/24 08:02 11/05/24 08:02 11/05/24 08:02 11/05/24 08:02 11/05/24 08:02 Oxygen Delivery Method Room Air Charges/Coding Procedures Integumentary 111xxx-113xx: 98077 Hannah subq tissue 20 sq cm/< Physical Exam Const alert, oriented x3 and no apparent distress General Appearance: cooperative, comfortable and well kempt HEENT normocephalic, head/scalp atraumatic and hearing grossly normal bilaterally Eyes EOMs intact bilaterally General Eye: normal appearance of both eyes Neck full ROM and supple General: normal visual inspection Resp normal respiratory effort Effort and Inspection: able to speak in complete sentences GI soft to palpation and non-tender Skin Wounds: wounds noted size Size: See clinical note, bed granulating well, margins well approximated and other, no odor, open and surrounding erythema Neuro oriented x3, CN's II-XII intact bilaterally, moves all extremities and no focal motor deficits Psych mental status grossly normal, thought process normal, cooperative and affect normal Debridement Note Debridement Note Wound debrided: Abdomen (inferior) Type of Debridement: Excisional debridement Anesthesia Used: 5% Lidocaine Gel Depth: Down to and including healthy tissue and in the subcutaneous layer Percentage of wound debrided: 100 Instrument Used: 3mm curette Tissue Removed: Slough and devitalized tissue Severity: Fat Layer Exposed Amount of bleeding with debridement: Mild Bleeding Controlled with: Pressure Patient tolerated procedure: Patient tolerated procedure well Post-Debridement Measurements and Additional Note: Post-Debridement Measurements/Treatment JYOTHI - Nurse 1 - General Ulcer Assessment Start: 11/05/24 08:02 Freq: Status: Active Protocol: JUSTIN Activity Type Activity Date Activity User E-sign Co-sign Detail Recorded Client Recorded Date Recorded By Document 11/05/24 08:02 KW [id number] 11/05/24 08:13 11/05/24 08:02 WC - Today's Visit Information Type of service 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 Any new allergies or adverse reactions No Had a fall/change in ADL's that may No increase risk of falls Signs or symptoms of abuse and/or No neglect since last visit Have you been in the hospital since your No last visit? Has dressing in place as prescribed Yes Has compression in place as prescribed N/A Has offloadiing in place as prescribed N/A Experienced any changes in pain level or No management Left Footwear Regular Shoe Right Footwear Regular Shoe Pain Scale: 0-10 Numeric Is Patient Pain Free? Yes - Nurse 1 - General Ulcer Measurement Start: 11/05/24 08:02 Freq: Status: Active Protocol: Activity Type Activity Date Activity User E-sign Co-sign Detail Recorded Client Recorded Date Recorded By Document 11/05/24 08:02 KW [id number] 11/05/24 08:13 11/05/24 08:02 Wound Center Nurse 1 4-ABDOMEN INFERIOR -Epithelialization Large 67-100% -Exudate Amt Small -Exudate Type Serosanguineous -Granulation Amt Large (67-100%) -Granulation Quality [place] -Texture (Matilde-wound Skin Appearance) Assessed -Moisture (Matilde-wound Skin Appearance) Assessed -Color (Matilde-wound Skin Appearance) Assessed -Temperature (Matilde-wound Skin No Abnormality Appearance) (Pt Warm) -Tenderness on Palpation (Matilde-wound No Skin Appearance) -Ulcer Cleansing Soap and Water -Foul Odor after Cleansing No -Anesthetic Used 5% Lidocaine Gel 3-ABDOMEN SUPERIOR -Exudate Amt Small -Exudate Type Serosanguineous -Wound Margin Distinct, Outline Attached -Granulation Amt Large (67-100%) -Granulation Quality [place] -Texture (Matilde-wound Skin Appearance) Assessed -Moisture (Matilde-wound Skin Appearance) Assessed -Color (Matilde-wound Skin Appearance) Assessed -Temperature (Matilde-wound Skin No Abnormality Appearance) (Pt Warm) -Tenderness on Palpation (Matilde-wound No Skin Appearance) -Ulcer Cleansing Rinsed/ Irrigated with Saline -Foul Odor after Cleansing No -Anesthetic Used 5% Lidocaine Gel WC - Nurse 2 - General Ulcer CM Notes Start: 11/05/24 08:02 Freq: Status: Active Protocol: Activity Type Activity Date Activity User E-sign Co-sign Detail Recorded Client Recorded Date Recorded By Document 11/05/24 08:21 [id number] 11/05/24 08:27 11/05/24 08:21 Wound Center Nurse 2 4-ABDOMEN INFERIOR -Time 08:21 -Correct Patient Yes -Correct Side, Site, Position Yes -Correct Procedure Yes -Procedure Performed Yes -Type of Procedure Debridement -Clinical Debridement Subcutaneous -Tissue Removed Subcutaneous -Post Debridement (cm) - Length 0.3 -Post Debridement (cm) - Width 0.7 -Post Debridement (cm) - Depth 0.1 -Total Square (Post) (cm) 0.21 -Area of Debridement (cm) - Length 0.3 -Area of Debridement (cm) - Width 0.7 -Total Square (Area) (cm) 0.21 -Tunneling No -Undermining/Tunneling No -Circular Undermining No -Wound/Ulcer Outcome Not Healed -Ulcer Cleansing Rinsed/ Irrigated with Saline -Foul Odor after Cleansing No -Bioengineered Tissue No -Bleeding Controlled with Pressure -Treatment Response Procedure Tolerated Well -Offloading No -Debridement - Subq, 1st 20sq cm Yes 3-ABDOMEN SUPERIOR -Time 08:21 -Correct Patient Yes -Correct Side, Site, Position Yes -Correct Procedure No -Procedure Performed No -Post Debridement (cm) - Length 0.1 -Post Debridement (cm) - Width 0.1 -Post Debridement (cm) - Depth 0.1 -Total Square (Post) (cm) 0.01 -Tunneling No -Undermining/Tunneling No -Circular Undermining No -Wound/Ulcer Outcome Not Healed -Ulcer Cleansing Not Cleansed -Foul Odor after Cleansing No -Bioengineered Tissue No -Bleeding Controlled with NA Pain Scale: 0-10 Numeric Is Patient Pain Free? Yes Assessment/Plan Assessment/Plan (1) Non-healing surgical wound: CODE(S): T81.89XA - Other complications of procedures, not elsewhere classified, initial encounter QUALIFIERS: Encounter type: subsequent encounter Qualified Code(s): T81.89XD - Other complications of procedures, not elsewhere classified, subsequent encounter (2) Type 2 diabetes mellitus: CODE(S): E11.9 - Type 2 diabetes mellitus without complications QUALIFIERS: Diabetes mellitus complication detail: with other skin complication Diabetes mellitus complication status: with skin complications Diabetes mellitus retirement insulin use: without buttermaker use Qualified Code(s): E11.628 - Type 2 diabetes mellitus with other skin complications (3) History of colostomy reversal: CODE(S): Z98.890 - Other specified postprocedural states (4) Surgical wound breakdown: CODE(S): T81.31XA - Disruption of external operation (surgical) wound, not elsewhere classified, initial encounter QUALIFIERS: Encounter type: subsequent encounter Qualified Code(s): T81.31XD - Disruption of external operation (surgical) wound, not elsewhere classified, subsequent encounter (5) Localized swelling of abdominal wall: CODE(S): R22.2 - Localized swelling, mass and lump, trunk (6) Skin ulcer of abdomen with fat layer exposed: CODE(S): L98.492 - Non-pressure chronic ulcer of skin of other sites with fat layer exposed PLAN: Plan Debridement done as documented above, procedure was well-tolerated. New area of opening in the inferior area which is above prior area and they were not aware of. Superior area still with skin breakdown and no significant area of opening. Continue to moisturize adequately, apply Promogran and cover with Adaptic and gauze. Area of retained surgical product still with mild bulge and occasional drainage. Continue to protect area with ABD/gauze and monitor closely. Plan is for surgical exploration if there is further breakdown. For now, they were advised to moisturize skin adequately using either Vaseline or Aquaphor after shower. Lightly moistened Promogran to the area of skin opening/tears, cover with Adaptic and gauze. Continue other chronic wound care management. Adequate protein intake and optimized diabetes control. He was advised to let us know if he had any further questions or concerns. Follow-up in 2 weeks or sooner if needed. This note was generated with [employer] dictation software. It may contain incorrect words, spelling, and punctuation that were not noted in checking the note before signing.
[2024-11-19 08:20] VITALS: BP 148/86; PULSE 83; RESP 16; TEMP 36.1
--- NOTE | 2024-11-19 08:55 | PCM.WC.PN ---
History of Present Illness Date of Service: 11/19/24 Chief Complaint: Non healing surgical wound History of Wound: Mr. Duque is a 63 yo being managed for surgical wound break down. Has been seen here since September 2023, 1 month after colostomy reversal. Progress of Wound: No significant change since his last visit. Blood glucose readings have been elevated lately. No acute concerns reported otherwise. Objective Data Objective Data Vital Signs: Vital Signs Temp Pulse Resp BP O2 Del Method 97.0 F L 83 16 148/86 H Room Air 11/19/24 08:20 11/19/24 08:20 11/19/24 08:20 11/19/24 08:20 11/05/24 08:02 Oxygen Delivery Method Room Air Charges/Coding Procedures Integumentary 111xxx-113xx: 45382 Hannah subq tissue 20 sq cm/< Physical Exam Const alert, oriented x3 and no apparent distress General Appearance: cooperative, comfortable and well kempt HEENT normocephalic, head/scalp atraumatic and hearing grossly normal bilaterally Eyes EOMs intact bilaterally General Eye: normal appearance of both eyes Neck full ROM and supple General: normal visual inspection Resp normal respiratory effort Effort and Inspection: able to speak in complete sentences GI soft to palpation and non-tender Skin Wounds: wounds noted size Size: See clinical note, bed granulating well, margins well approximated and other, no odor, open and surrounding erythema Neuro oriented x3, CN's II-XII intact bilaterally, moves all extremities and no focal motor deficits Psych mental status grossly normal, thought process normal, cooperative and affect normal Debridement Note Debridement Note Wound debrided: Abdomen (inferior) Type of Debridement: Excisional debridement Anesthesia Used: 5% Lidocaine Gel Depth: Down to and including healthy tissue Percentage of wound debrided: 100 Severity: Fat Layer Exposed Amount of bleeding with debridement: Mild Bleeding Controlled with: Pressure Patient tolerated procedure: Patient tolerated procedure well Post-Debridement Measurements and Additional Note: Post-Debridement Measurements/Treatment JYOTHI - Nurse 1 - General Ulcer Assessment Start: 11/05/24 08:02 Freq: Status: Active Protocol: JUSTIN Activity Type Activity Date Activity User E-sign Co-sign Detail Recorded Client Recorded Date Recorded By Document 11/05/24 08:02 KW [id number] 11/05/24 08:13 KW Document 11/19/24 08:20 MISHA [id number] 11/19/24 08:27 JF 11/05/24 11/19/24 08:02 08:20 - Today's Visit Information Type of service Follow-up Visit Follow-up Visit (Physician/SUPERINTENDENT NONSELLING (Physician/SUPERINTENDENT NONSELLING ) ) Arrival Mode Ambulatory Accompanied by Patient Identification Verified (Name & Yes ) Vital Signs Temperature (97.8 F-99.1 F) 96.7 F L 97.0 F L Temperature Source Temporal Temporal Pulse Rate (60-100) 77 83 Pulse Location Monitor Respiratory Rate (12-18) 18 16 Respiratory rate source Observation Observation Oxygen Delivery Method Room Air Blood Pressure (90/60-120/80) 142/85 H 148/86 H Blood Pressure Mean (mm Hg) 104 106 Source Monitor Monitor Position Sitting Semi-Fowlers Blood Pressure Location Left Arm Left Arm History Since Last Visit- (Skip if this is Patient's initial visit) Have you changed medications since your No Yes last visit? Any new allergies or adverse reactions No No Had a fall/change in ADL's that may No No increase risk of falls Signs or symptoms of abuse and/or No No neglect since last visit Have you been in the hospital since your No No last visit? Has dressing in place as prescribed Yes Yes Has compression in place as prescribed N/A N/A Has offloadiing in place as prescribed N/A N/A Experienced any changes in pain level or No No management Left Footwear Regular Shoe Regular Shoe Right Footwear Regular Shoe Regular Shoe Pain Scale: 0-10 Numeric Is Patient Pain Free? Yes Yes - Nurse 1 - General Ulcer Measurement Start: 11/05/24 08:02 Freq: Status: Active Protocol: Activity Type Activity Date Activity User E-sign Co-sign Detail Recorded Client Recorded Date Recorded By Document 11/05/24 08:02 KW [id number] 11/05/24 08:13 KW Document 11/19/24 08:20 JF [id number] 11/19/24 08:27 JF 11/05/24 11/19/24 08:02 08:20 Wound Center Nurse 1 4-ABDOMEN INFERIOR -Combined with other wound No -Current Size (cm) - Length 0.1 -Current Size (cm) - Width 0.1 -Current Size (cm) - Depth 0.1 -Total Square Cm 0.01 -Photo Taken Yes -Epithelialization Large 67-100% Medium 34-66% -Tunneling No -Undermining/Tunneling No -Circular Undermining No -Exudate Amt Small Medium -Exudate Type Serosanguineous Serosanguineous -Wound Margin Flat & Intact -Granulation Amt Large (67-100%) Large (67-100%) -Granulation Quality [place] Red -Slough/Fibrin Yes -Necrosis Amt None Present (0 %) -Structure Exposed N/A -Texture (Matilde-wound Skin Appearance) Assessed Assessed, Scarring -Moisture (Matilde-wound Skin Appearance) Assessed No Abnormality, Dry/Scaly -Color (Matilde-wound Skin Appearance) Assessed Assessed -Temperature (Matilde-wound Skin No Abnormality No Abnormality Appearance) (Pt Warm) (Pt Warm) -Tenderness on Palpation (Matilde-wound No No Skin Appearance) -Ulcer Cleansing Soap and Water Rinsed/ Irrigated with Saline -Foul Odor after Cleansing No No -Anesthetic Used 5% Lidocaine 5% Lidocaine Gel Gel 3-ABDOMEN SUPERIOR -Combined with other wound No -Current Size (cm) - Length 0.1 -Current Size (cm) - Width 0.1 -Current Size (cm) - Depth 0.1 -Total Square Cm 0.01 -Photo Taken Yes -Epithelialization Large 67-100% -Tunneling No -Undermining/Tunneling No -Circular Undermining No -Exudate Amt Small Medium -Exudate Type Serosanguineous Serosanguineous -Wound Margin Distinct, Thickened & Outline Rolled Under Attached -Granulation Amt Large (67-100%) Large (67-100%) -Granulation Quality [place] -Slough/Fibrin Yes -Necrosis Amt Small (1-33%) -Necrotic Tissue Type Adherent Slough -Structure Exposed N/A -Texture (Matilde-wound Skin Appearance) Assessed Assessed, Scarring -Moisture (Matilde-wound Skin Appearance) Assessed No Abnormality, Dry/Scaly -Color (Matilde-wound Skin Appearance) Assessed Assessed -Temperature (Matilde-wound Skin No Abnormality No Abnormality Appearance) (Pt Warm) (Pt Warm) -Tenderness on Palpation (Matilde-wound No No Skin Appearance) -Ulcer Cleansing Rinsed/ Rinsed/ Irrigated with Irrigated with Saline Saline -Foul Odor after Cleansing No No -Anesthetic Used 5% Lidocaine 5% Lidocaine Gel Gel Lower Limb Edema Present NA WC - Nurse 2 - General Ulcer CM Notes Start: 11/05/24 08:02 Freq: Status: Active Protocol: Activity Type Activity Date Activity User E-sign Co-sign Detail Recorded Client Recorded Date Recorded By Document 11/05/24 08:21 [id number] 11/05/24 08:27 Document 11/19/24 08:45 [id number] 11/19/24 08:54 11/05/24 11/19/24 08:21 08:45 Wound Center Nurse 2 4-ABDOMEN INFERIOR -Time 08:21 08:45 -Correct Patient Yes Yes -Correct Side, Site, Position Yes Yes -Correct Procedure Yes Yes -Procedure Performed Yes Yes -Type of Procedure Debridement Debridement -Clinical Debridement Subcutaneous Subcutaneous -Tissue Removed Subcutaneous Subcutaneous -Post Debridement (cm) - Length 0.3 0.1 -Post Debridement (cm) - Width 0.7 0.1 -Post Debridement (cm) - Depth 0.1 0.1 -Total Square (Post) (cm) 0.21 0.01 -Area of Debridement (cm) - Length 0.3 0.1 -Area of Debridement (cm) - Width 0.7 0.1 -Total Square (Area) (cm) 0.21 0.01 -Tunneling No No -Undermining/Tunneling No No -Circular Undermining No No -Wound/Ulcer Outcome Not Healed Not Healed -Ulcer Cleansing Rinsed/ Rinsed/ Irrigated with Irrigated with Saline Saline -Foul Odor after Cleansing No No -Bioengineered Tissue No No -Bleeding Controlled with Pressure Pressure -Treatment Response Procedure Procedure Tolerated Well Tolerated Well -Offloading No No -Debridement - Subq, 1st 20sq cm Yes Yes 3-ABDOMEN SUPERIOR -Time 08:21 08:47 -Correct Patient Yes Yes -Correct Side, Site, Position Yes Yes -Correct Procedure No Yes -Procedure Performed No Yes -Type of Procedure Debridement -Clinical Debridement Subcutaneous -Tissue Removed Subcutaneous -Post Debridement (cm) - Length 0.1 0.1 -Post Debridement (cm) - Width 0.1 0.1 -Post Debridement (cm) - Depth 0.1 0.1 -Total Square (Post) (cm) 0.01 0.01 -Area of Debridement (cm) - Length 0.1 -Area of Debridement (cm) - Width 0.1 -Total Square (Area) (cm) 0.01 -Tunneling No No -Undermining/Tunneling No No -Circular Undermining No No -Wound/Ulcer Outcome Not Healed Not Healed -Ulcer Cleansing Not Cleansed Rinsed/ Irrigated with Saline -Foul Odor after Cleansing No No -Bioengineered Tissue No No -Bleeding Controlled with NA Pressure -Treatment Response Procedure Tolerated Well -Offloading No -Debridement - Subq, 1st 20sq cm No Pain Scale: 0-10 Numeric Is Patient Pain Free? Yes Yes - Nurse 3 - General Ulcer D/C NN Start: 11/05/24 08:02 Freq: Status: Active Protocol: Activity Type Activity Date Activity User E-sign Co-sign Detail Recorded Client Recorded Date Recorded By Document 11/05/24 08:45 RB [id number] 11/05/24 08:48 RB 11/05/24 08:45 Wound Care Center Nurse 3 4-ABDOMEN INFERIOR -Ulcer Cleansing Rinsed/ Irrigated with Saline -Primary Dressing Applied NonAdherent Contact Layer, Promogran -Other Dressing lotion to periarea/ABD -Primary Dressing Covered/Secured with Secured with Tape -Promogran 1 3-ABDOMEN SUPERIOR -Primary Dressing Applied NonAdherent Contact Layer -Other Dressing promogran/abd -Primary Dressing Covered/Secured with Secured with Tape -Promogran 0 Matilde-Wound Care Lotion Treatment Response Procedure Tolerated Well Pain Scale: 0-10 Numeric Is Patient Pain Free? Yes - Visit Discharge Discharge Condition Stable Ambulatory Status Ambulatory Transportation Private Auto Medication Reconcilliation completed & No provided to patient/care provider Clinical Summary of Care Provided Yes Assessment/Plan Assessment/Plan (1) Non-healing surgical wound: CODE(S): T81.89XA - Other complications of procedures, not elsewhere classified, initial encounter QUALIFIERS: Encounter type: subsequent encounter Qualified Code(s): T81.89XD - Other complications of procedures, not elsewhere classified, subsequent encounter (2) Type 2 diabetes mellitus: CODE(S): E11.9 - Type 2 diabetes mellitus without complications QUALIFIERS: Diabetes mellitus usp insulin use: without manager intermediate use Diabetes mellitus complication status: with skin complications Diabetes mellitus complication detail: with other skin complication Qualified Code(s): E11.628 - Type 2 diabetes mellitus with other skin complications (3) History of colostomy reversal: CODE(S): Z98.890 - Other specified postprocedural states (4) Surgical wound breakdown: CODE(S): T81.31XA - Disruption of external operation (surgical) wound, not elsewhere classified, initial encounter QUALIFIERS: Encounter type: subsequent encounter Qualified Code(s): T81.31XD - Disruption of external operation (surgical) wound, not elsewhere classified, subsequent encounter (5) Localized swelling of abdominal wall: CODE(S): R22.2 - Localized swelling, mass and lump, trunk (6) Skin ulcer of abdomen with fat layer exposed: CODE(S): L98.492 - Non-pressure chronic ulcer of skin of other sites with fat layer exposed PLAN: Plan Debridement done as documented above, procedure was well-tolerated. No acute concerns at this time. Grossly stable wounds/ulcers. Continue to moisturize adequately, apply Promogran and cover with Adaptic and gauze. Area of retained surgical product still with mild bulge and occasional drainage. Continue to protect area with ABD/gauze and monitor closely. Plan is for surgical exploration if there is further breakdown. Continue other chronic wound care management. Instructions given on insulin management for optimal diabetes control, they voiced understanding. He was advised to let us know if he had any further questions or concerns. Follow-up in 2 weeks or sooner if needed. This note was generated with [employer] dictation software. It may contain incorrect words, spelling, and punctuation that were not noted in checking the note before signing.
--- NOTE | 2024-11-19 14:31 | WC ---
PHOTO-ABD INF 11/19/24
--- NOTE | 2024-11-19 14:39 | WC ---
PHOTO-ABD SUP 11/19/24
== END 2024-11-24 23:59 | disposition home or self-care (01) ==
LOC: WC 08:15
PROVIDERS: PCP Internal Medicine; Referring Provider Internal Medicine; Visit Provider Internal Medicine
DX: T81.89XA Other complications of procedures, not elsewhere classified, initial encounter (principal); E11.622 Type 2 diabetes mellitus with other skin ulcer; L98.492 Non-pressure chronic ulcer of skin of other sites with fat layer exposed; E11.628 Type 2 diabetes mellitus with other skin complications; T81.31XA Disruption of external operation (surgical) wound, not elsewhere classified, initial encounter; R22.2 Localized swelling, mass and lump, trunk; Y83.8 Other surgical procedures as the cause of abnormal reaction of the patient, or of later complication, without mention of misadventure at the time of the procedure
CPT/HCPCS: 11042

== ENCOUNTER → 2024-11-27 | Outpatient (CLI) | payer OTHER, SELFPAY ==
[2024-11-27 09:32] LABS: AST(SGOT) 25 U/L (<=37); Alanine Aminotransfer ALT/SGPT 28 U/L (<=46); Albumin, Serum 4.3 g/dL (3.4-4.8); Alkaline Phosphatase 66 U/L (40-129); Anion Gap 13 (5-15); BUN 14 mg/dL (4-19); BUN/Creat Ratio 18.5 RATIO (10-20); Calcium,Total 9.2 mg/dL (7.6-11.0); Carbon Dioxide 24.9 mmol/L (21.0-32.0); Chloride 101 mmol/L (98-108); Globulin 3.2 g/dL (2.2-4.2); Glucose 117 mg/dL (70-99); Potassium 4.2 mmol/L (3.3-5.1)
== END | disposition home or self-care (01) ==
LOC: LAB 08:15
PROVIDERS: PCP Internal Medicine; Referring Provider Internal Medicine; Visit Provider Internal Medicine
DX: E11.628 Type 2 diabetes mellitus with other skin complications (principal)
CPT/HCPCS: 36415; 80053

== ENCOUNTER 2024-12-17 08:15 | Outpatient (RCR) | payer OTHER, SELFPAY ==
[2024-12-03 08:30] VITALS: BP 168/89; PULSE 74; RESP 18; TEMP 36.6
--- NOTE | 2024-12-03 12:10 | PN.PCM_ITS ---
History of Present Illness Date of Service: 12/03/24 Chief Complaint: Non healing surgical wound History of Wound: Mr. Duque is a 63 yo being managed for surgical wound break down. Has been seen here since September 2023, 1 month after colostomy reversal. Progress of Wound: Reopening of the superior ulcer with increased drainage. He states that his blood glucose readings have been better no concerns reported otherwise. Objective Data Objective Data Vital Signs: Vital Signs Temp Pulse Resp BP 97.8 F 74 18 168/89 H 12/03/24 08:30 12/03/24 08:30 12/03/24 08:30 12/03/24 08:30 Charges/Coding Procedures Integumentary 111xxx-113xx: [id number] Hannah subq tissue 20 sq cm/< Physical Exam Const alert, oriented x3 and no apparent distress General Appearance: cooperative, comfortable and well kempt HEENT normocephalic, head/scalp atraumatic and hearing grossly normal bilaterally Eyes EOMs intact bilaterally General Eye: normal appearance of both eyes Neck full ROM and supple General: normal visual inspection Resp normal respiratory effort Effort and Inspection: able to speak in complete sentences GI soft to palpation and non-tender Skin Wounds: wounds noted size Size: See clinical note, bed granulating well, margins well approximated and other, no odor, open and surrounding erythema Neuro oriented x3, CN's II-XII intact bilaterally, moves all extremities and no focal motor deficits Psych mental status grossly normal, thought process normal, cooperative and affect normal Debridement Note Debridement Note Wound debrided: Abdomen (superior) Type of Debridement: Excisional debridement Anesthesia Used: 5% Lidocaine Gel Depth: Down to and including healthy tissue and in the subcutaneous layer Percentage of wound debrided: 100 Instrument Used: 3mm curette Tissue Removed: Slough and devitalized tissue Severity: Fat Layer Exposed Amount of bleeding with debridement: Mild Bleeding Controlled with: Pressure Patient tolerated procedure: Patient tolerated procedure well Post-Debridement Measurements and Additional Note: Post-Debridement Measurements/Treatment - Nurse 1 - General Ulcer Assessment Start: 12/03/24 08:30 Freq: Status: Active Protocol: JUSTIN Activity Type Activity Date Activity User E-sign Co-sign Detail Recorded Client Recorded Date Recorded By Document 12/03/24 08:30 RB [id number] 12/03/24 08:33 RB 12/03/24 08:30 - Today's Visit Information 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 of service 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 Any new allergies or adverse reactions No Had a fall/change in ADL's that may No increase risk of falls Signs or symptoms of abuse and/or No neglect since last visit Have you been in the hospital since your No last visit? Has dressing in place as prescribed Yes Has compression in place as prescribed N/A Has offloadiing in place as prescribed N/A Experienced any changes in pain level or No management Left Footwear Regular Shoe Right Footwear Regular Shoe Pain Scale: 0-10 Numeric Is Patient Pain Free? Yes - Nurse 1 - General Ulcer Measurement Start: 12/03/24 08:30 Freq: Status: Active Protocol: Activity Type Activity Date Activity User E-sign Co-sign Detail Recorded Client Recorded Date Recorded By Document 12/03/24 08:30 RB [id number] 12/03/24 08:33 RB 12/03/24 08:30 Wound Center Nurse 1 4-ABDOMEN INFERIOR -Combined with other wound No -Current Size (cm) - Length 1.4 -Current Size (cm) - Width 1.4 -Current Size (cm) - Depth 0.1 -Total Square Cm 1.96 -Photo Taken Yes -Tunneling No -Undermining/Tunneling No -Circular Undermining No -Exudate Amt Medium -Exudate Type Serosanguineous -Wound Margin Distinct, Outline Attached -Granulation Amt Medium (34-66%) -Granulation Quality [place] -Slough/Fibrin Yes -Necrosis Amt Medium (34-66%) -Necrotic Tissue Type Adherent Slough -Structure Exposed N/A -Texture (Matilde-wound Skin Appearance) Assessed, Scarring -Moisture (Matilde-wound Skin Appearance) Assessed -Color (Matilde-wound Skin Appearance) Assessed -Temperature (Matilde-wound Skin No Abnormality Appearance) (Pt Warm) -Tenderness on Palpation (Matilde-wound No Skin Appearance) -Ulcer Cleansing Wound Cleanser -Foul Odor after Cleansing No -Anesthetic Used 5% Lidocaine Gel 3-ABDOMEN SUPERIOR -Combined with other wound No -Current Size (cm) - Length 0.1 -Current Size (cm) - Width 0.1 -Current Size (cm) - Depth 0.1 -Total Square Cm 0.01 -Photo Taken Yes -Tunneling No -Undermining/Tunneling No -Circular Undermining No -Exudate Amt Medium -Exudate Type Serous -Wound Margin Distinct, Outline Attached -Granulation Amt Medium (34-66%) -Granulation Quality [place] -Slough/Fibrin Yes -Necrosis Amt Medium (34-66%) -Necrotic Tissue Type Adherent Slough -Structure Exposed N/A -Texture (Matilde-wound Skin Appearance) Assessed -Moisture (Matilde-wound Skin Appearance) Assessed -Color (Matilde-wound Skin Appearance) Assessed -Temperature (Matilde-wound Skin No Abnormality Appearance) (Pt Warm) -Tenderness on Palpation (Matilde-wound No Skin Appearance) -Ulcer Cleansing Wound Cleanser -Foul Odor after Cleansing No -Anesthetic Used 5% Lidocaine Gel WC - Nurse 2 - General Ulcer CM Notes Start: 12/03/24 08:30 Freq: Status: Active Protocol: Activity Type Activity Date Activity User E-sign Co-sign Detail Recorded Client Recorded Date Recorded By Document 12/03/24 09:09 [id number] 12/03/24 09:17 12/03/24 09:09 Wound Center Nurse 2 4-ABDOMEN INFERIOR -Time 09:09 -Correct Patient Yes -Correct Side, Site, Position Yes -Correct Procedure Yes -Procedure Performed Yes -Type of Procedure Debridement -Clinical Debridement Subcutaneous -Tissue Removed Subcutaneous -Post Debridement (cm) - Length 0.6 -Post Debridement (cm) - Width 1.0 -Post Debridement (cm) - Depth 0.1 -Total Square (Post) (cm) 0.60 -Area of Debridement (cm) - Length 0.6 -Area of Debridement (cm) - Width 1.0 -Total Square (Area) (cm) 0.60 -Tunneling No -Undermining/Tunneling No -Circular Undermining No -Wound/Ulcer Outcome Not Healed -Ulcer Cleansing Rinsed/ Irrigated with Saline -Foul Odor after Cleansing No -Bioengineered Tissue No -Bleeding Controlled with Pressure -Treatment Response Procedure Tolerated Well -Offloading No -Debridement - Subq, 1st 20sq cm No 3-ABDOMEN SUPERIOR -Time 09:09 -Correct Patient Yes -Correct Side, Site, Position Yes -Correct Procedure Yes -Procedure Performed Yes -Type of Procedure Debridement -Clinical Debridement Subcutaneous -Tissue Removed Subcutaneous -Post Debridement (cm) - Length 0.5 -Post Debridement (cm) - Width 1.1 -Post Debridement (cm) - Depth 0.1 -Total Square (Post) (cm) 0.55 -Area of Debridement (cm) - Length 0.5 -Area of Debridement (cm) - Width 1.1 -Total Square (Area) (cm) 0.55 -Tunneling No -Undermining/Tunneling No -Circular Undermining No -Wound/Ulcer Outcome Not Healed -Ulcer Cleansing Rinsed/ Irrigated with Saline -Foul Odor after Cleansing No -Bioengineered Tissue No -Bleeding Controlled with Pressure -Treatment Response Procedure Tolerated Well -Offloading No -Debridement - Subq, 1st 20sq cm Yes Pain Scale: 0-10 Numeric Is Patient Pain Free? Yes - Nurse 3 - General Ulcer D/C NN Start: 12/03/24 08:30 Freq: Status: Active Protocol: Activity Type Activity Date Activity User E-sign Co-sign Detail Recorded Client Recorded Date Recorded By Document 12/03/24 09:33 JF [id number] 12/03/24 09:33 JF 12/03/24 09:33 Wound Care Center Nurse 3 4-ABDOMEN INFERIOR -Ulcer Cleansing Rinsed/ Irrigated with Saline -Foul Odor after Cleansing No -Primary Dressing Applied Aquacel Extra, NonAdherent Contact Layer -Primary Dressing Covered/Secured with Dry Gauze, Secured with Tape -Aquacel Extra 1 3-ABDOMEN SUPERIOR -Ulcer Cleansing Rinsed/ Irrigated with Saline -Foul Odor after Cleansing No -Primary Dressing Applied Aquacel Extra, NonAdherent Contact Layer -Primary Dressing Covered/Secured with Dry Gauze, Secured with Tape -Aquacel Extra 0 Pain Scale: 0-10 Numeric Is Patient Pain Free? Yes WC - Visit Discharge Discharge Condition Stable Ambulatory Status Ambulatory Transportation Private [facility] Medication Reconcilliation completed & Yes provided to patient/care provider Clinical Summary of Care Provided Yes Additional Wound Wound debrided: Abdomen (inferior) Type of Debridement: Excisional debridement Anesthesia Used: 5% Lidocaine Gel Depth: Down to and including healthy tissue and in the subcutaneous layer Percentage of wound debrided: 100 Instrument Used: 3mm curette Tissue Removed: Slough and devitalized tissue Severity: Fat Layer Exposed Amount of bleeding with debridement: Mild Bleeding Controlled with: Pressure Patient tolerated procedure: Patient tolerated procedure well Assessment/Plan Assessment/Plan (1) Non-healing surgical wound: CODE(S): T81.89XA - Other complications of procedures, not elsewhere classified, initial encounter QUALIFIERS: Encounter type: subsequent encounter Qualified Code(s): T81.89XD - Other complications of procedures, not elsewhere classified, subsequent encounter (2) Type 2 diabetes mellitus: CODE(S): E11.9 - Type 2 diabetes mellitus without complications QUALIFIERS: Diabetes mellitus salvage determiner insulin use: without longterm use Diabetes mellitus complication status: with skin complications Diabetes mellitus complication detail: with other skin complication Qualified Code(s): E11.628 - Type 2 diabetes mellitus with other skin complications (3) History of colostomy reversal: CODE(S): Z98.890 - Other specified postprocedural states (4) Surgical wound breakdown: CODE(S): T81.31XA - Disruption of external operation (surgical) wound, not elsewhere classified, initial encounter QUALIFIERS: Encounter type: subsequent encounter Qualified Code(s): T81.31XD - Disruption of external operation (surgical) wound, not elsewhere classified, subsequent encounter (5) Localized swelling of abdominal wall: CODE(S): R22.2 - Localized swelling, mass and lump, trunk (6) Skin ulcer of abdomen with fat layer exposed: CODE(S): L98.492 - Non-pressure chronic ulcer of skin of other sites with fat layer exposed PLAN: Plan Debridement done as documented above, procedure was well-tolerated. Reopening of upper abdominal area. He also reports increased drainage over the last 2 weeks (has now lessened) from area of retained product. Plan is for surgical exploration if there is further breakdown. Due to increased drainage, cultures taken, will review. Switch to Aquacel extra and cover with Adaptic/gauze. Gauze/foam dressing over area of retained surgical product. Continue other chronic wound care management. Instructions given on insulin management for optimal diabetes control, they voiced understanding. He was advised to let us know if he had any further questions or concerns. Follow-up in 2 weeks or sooner if needed. This note was generated with [employer] dictation software. It may contain incorrect words, spelling, and punctuation that were not noted in checking the note before signing.
[2024-12-17 08:28] VITALS: BP 138/88; PULSE 80; RESP 16; TEMP 36.4
--- NOTE | 2024-12-17 09:28 | PN.PCM_ITS ---
History of Present Illness Date of Service: 12/17/24 Chief Complaint: Non healing surgical wound History of Wound: Mr. Duque is a 63 yo being managed for surgical wound break down. Has been seen here since September 2023, 1 month after colostomy reversal. Progress of Wound: No new concerns reported at this time. Had cultures taken at his last visit due to concern for worsening however, culture with no growth. There has been some improvement since his last visit. Blood glucose readings have been better as well. Objective Data Objective Data Vital Signs: Vital Signs Temp Pulse Resp BP 97.6 F L 80 16 138/88 H 12/17/24 08:28 12/17/24 08:28 12/17/24 08:28 12/17/24 08:28 Lab / Micro Data Micro: Microbiology 12/03/24 09:15 Wound - Abdominal Gram Stain - Final 12/03/24 09:15 Wound - Abdominal Wound Culture - Final No growth aerobically. 12/03/24 09:15 Wound - Abdominal Anaerobic Culture - Final No anaerobic bacteria isolated. Charges/Coding Procedures Integumentary 111xxx-113xx: 98805 Hannah subq tissue 20 sq cm/< Physical Exam Const alert, oriented x3 and no apparent distress General Appearance: cooperative, comfortable and well kempt HEENT normocephalic, head/scalp atraumatic and hearing grossly normal bilaterally Eyes EOMs intact bilaterally General Eye: normal appearance of both eyes Neck full ROM and supple General: normal visual inspection Resp normal respiratory effort Effort and Inspection: able to speak in complete sentences GI soft to palpation and non-tender Skin Wounds: wounds noted size Size: See clinical note, bed granulating well, margins well approximated and other, no odor, open and surrounding erythema Neuro oriented x3, CN's II-XII intact bilaterally, moves all extremities and no focal motor deficits Psych mental status grossly normal, thought process normal, cooperative and affect normal Debridement Note Debridement Note Wound debrided: Abdomen ( Superior ) Type of Debridement: Selective debridement Anesthesia Used: 5% Lidocaine Gel Depth: Down to and including healthy tissue Percentage of wound debrided: 100 Instrument Used: 3mm curette Tissue Removed: Devitalized tissue Severity: Limited To Skin Breakdown Amount of bleeding with debridement: Mild Bleeding Controlled with: Pressure Patient tolerated procedure: Patient tolerated procedure well Post-Debridement Measurements and Additional Note: Post-Debridement Measurements/Treatment WC - Nurse 1 - General Ulcer Assessment Start: 12/03/24 08:30 Freq: Status: Active Protocol: JUSTIN Activity Type Activity Date Activity User E-sign Co-sign Detail Recorded Client Recorded Date Recorded By Document 12/03/24 08:30 RB [id number] 12/03/24 08:33 RB Document 12/17/24 08:28 TS [id number] 12/17/24 08:34 TS 12/03/24 12/17/24 08:30 08:28 - Today's Visit Information Type of service Follow-up Visit Initial Visit (Physician/[employer] ) Arrival Mode Ambulatory Ambulatory Transfer Assistance None None Patient Identification Verified (Name & Yes Yes ) Patient Requires Transmission-Based No No Precautions Safety Precautions NA Vital Signs Temperature (97.8 F-99.1 F) 97.8 F 97.6 F L Temperature Source Temporal Temporal Pulse Rate (60-100) 74 80 Pulse Location Monitor Monitor Respiratory Rate (12-18) 18 16 Respiratory rate source Observation Observation Blood Pressure (90/60-120/80) 168/89 H 138/88 H Blood Pressure Mean (mm Hg) 115 104 Source Monitor Monitor Position Semi-Fowlers Blood Pressure Location Left Arm History Since Last Visit- (Skip if this is Patient's initial visit) Have you changed medications since your No No last visit? Any new allergies or adverse reactions No No Had a fall/change in ADL's that may No No increase risk of falls Signs or symptoms of abuse and/or No No neglect since last visit Have you been in the hospital since your No No last visit? Has dressing in place as prescribed Yes Yes Has compression in place as prescribed N/A N/A Has offloadiing in place as prescribed N/A N/A Experienced any changes in pain level or No No management Left Footwear Regular Shoe Regular Shoe Right Footwear Regular Shoe Regular Shoe Pain Scale: 0-10 Numeric Is Patient Pain Free? Yes Yes - Nurse 1 - General Ulcer Measurement Start: 12/03/24 08:30 Freq: Status: Active Protocol: Activity Type Activity Date Activity User E-sign Co-sign Detail Recorded Client Recorded Date Recorded By Document 12/03/24 08:30 RB [id number] 12/03/24 08:33 RB Document 12/17/24 08:28 TS [id number] 10/23/25 08:34 TS 12/03/24 12/17/24 08:30 08:28 Wound Center Nurse 1 4-ABDOMEN INFERIOR -Combined with other wound No No -Current Size (cm) - Length 1.4 0.1 -Current Size (cm) - Width 1.4 0.1 -Current Size (cm) - Depth 0.1 0.1 -Total Square Cm 1.96 0.01 -Photo Taken Yes Yes -Tunneling No No -Undermining/Tunneling No No -Circular Undermining No -Exudate Amt Medium None Present -Exudate Type Serosanguineous -Wound Margin Distinct, Indistinct, Non Outline -Visible Attached -Granulation Amt Medium (34-66%) Large (67-100%) -Granulation Quality [place] -Slough/Fibrin Yes No -Necrosis Amt Medium (34-66%) None Present (0 %) -Necrotic Tissue Type Adherent Slough -Structure Exposed N/A None/Limited to Skin Breakdown -Texture (Matilde-wound Skin Appearance) Assessed, Assessed, Scarring Scarring -Moisture (Matilde-wound Skin Appearance) Assessed No Abnormality, Assessed -Color (Matilde-wound Skin Appearance) Assessed -Temperature (Matilde-wound Skin No Abnormality No Abnormality Appearance) (Pt Warm) (Pt Warm) -Tenderness on Palpation (Matilde-wound No No Skin Appearance) -Ulcer Cleansing Wound Cleanser Soap and Water -Foul Odor after Cleansing No -Anesthetic Used 5% Lidocaine 5% Lidocaine Gel Gel 3-ABDOMEN SUPERIOR -Combined with other wound No No -Current Size (cm) - Length 0.1 0.5 -Current Size (cm) - Width 0.1 0.4 -Current Size (cm) - Depth 0.1 0.1 -Total Square Cm 0.01 0.20 -Photo Taken Yes Yes -Epithelialization Large 67-100% -Tunneling No No -Undermining/Tunneling No No -Circular Undermining No -Exudate Amt Medium Small -Exudate Type Serous Serosanguineous -Wound Margin Distinct, Flat & Intact Outline Attached -Granulation Amt Medium (34-66%) Large (67-100%) -Granulation Quality [place] -Slough/Fibrin Yes No -Necrosis Amt Medium (34-66%) -Necrotic Tissue Type Adherent Slough -Structure Exposed N/A None/Limited to Skin Breakdown -Texture (Matilde-wound Skin Appearance) Assessed Assessed, Scarring -Moisture (Matilde-wound Skin Appearance) Assessed No Abnormality -Color (Matilde-wound Skin Appearance) Assessed No Abnormality -Temperature (Matilde-wound Skin No Abnormality No Abnormality Appearance) (Pt Warm) (Pt Warm) -Tenderness on Palpation (Matilde-wound No Skin Appearance) -Ulcer Cleansing Wound Cleanser Soap and Water -Foul Odor after Cleansing No No -Anesthetic Used 5% Lidocaine 5% Lidocaine Gel Gel WC - Nurse 2 - General Ulcer CM Notes Start: 12/03/24 08:30 Freq: Status: Active Protocol: Activity Type Activity Date Activity User E-sign Co-sign Detail Recorded Client Recorded Date Recorded By Document 12/03/24 09:09 [id number] 12/03/24 09:17 Document 12/17/24 08:41 [id number] 12/17/24 08:47 12/03/24 12/17/24 09:09 08:41 Wound Center Nurse 2 4-ABDOMEN INFERIOR -Time 09:09 08:42 -Correct Patient Yes Yes -Correct Side, Site, Position Yes Yes -Correct Procedure Yes Yes -Procedure Performed Yes Yes -Type of Procedure Debridement Debridement -Clinical Debridement Subcutaneous Subcutaneous -Tissue Removed Subcutaneous Subcutaneous -Post Debridement (cm) - Length 0.6 1.1 -Post Debridement (cm) - Width 1.0 0.4 -Post Debridement (cm) - Depth 0.1 0.1 -Total Square (Post) (cm) 0.60 0.44 -Area of Debridement (cm) - Length 0.6 1.1 -Area of Debridement (cm) - Width 1.0 0.4 -Total Square (Area) (cm) 0.60 0.44 -Tunneling No No -Undermining/Tunneling No No -Circular Undermining No No -Wound/Ulcer Outcome Not Healed Not Healed -Ulcer Cleansing Rinsed/ Rinsed/ Irrigated with Irrigated with Saline Saline -Foul Odor after Cleansing No No -Bioengineered Tissue No No -Bleeding Controlled with Pressure Pressure -Treatment Response Procedure Procedure Tolerated Well Tolerated Well -Offloading No No -Debridement - Subq, 1st 20sq cm No Yes 3-ABDOMEN SUPERIOR -Time 09:09 08:42 -Correct Patient Yes Yes -Correct Side, Site, Position Yes Yes -Correct Procedure Yes Yes -Procedure Performed Yes Yes -Type of Procedure Debridement Debridement -Clinical Debridement Subcutaneous Epidermis / Dermis -Tissue Removed Subcutaneous Epidermis, Dermis -Post Debridement (cm) - Length 0.5 0.5 -Post Debridement (cm) - Width 1.1 0.6 -Post Debridement (cm) - Depth 0.1 0.1 -Total Square (Post) (cm) 0.55 0.30 -Area of Debridement (cm) - Length 0.5 0.5 -Area of Debridement (cm) - Width 1.1 0.6 -Total Square (Area) (cm) 0.55 0.30 -Tunneling No No -Undermining/Tunneling No No -Circular Undermining No No -Wound/Ulcer Outcome Not Healed Not Healed -Ulcer Cleansing Rinsed/ Rinsed/ Irrigated with Irrigated with Saline Saline -Foul Odor after Cleansing No No -Bioengineered Tissue No No -Bleeding Controlled with Pressure Pressure -Treatment Response Procedure Procedure Tolerated Well Tolerated Well -Offloading No No -Debridement - Open, 1st 20sq cm Yes -Debridement - Subq, 1st 20sq cm Yes Yes Pain Scale: 0-10 Numeric Is Patient Pain Free? Yes Yes - Nurse 3 - General Ulcer D/C NN Start: 12/03/24 08:30 Freq: Status: Active Protocol: Activity Type Activity Date Activity User E-sign Co-sign Detail Recorded Client Recorded Date Recorded By Document 12/03/24 09:33 [id number] 12/03/24 09:33 Document 12/17/24 09:00 ND [id number] 12/17/24 09:02 ND 12/03/24 12/17/24 09:33 09:00 Wound Care Center Nurse 3 4-ABDOMEN INFERIOR -Ulcer Cleansing Rinsed/ Irrigated with Saline -Foul Odor after Cleansing No -Primary Dressing Applied Aquacel Extra, Aquacel Extra NonAdherent Contact Layer -Other Dressing adaptic, abd -Primary Dressing Covered/Secured with Dry Gauze, Secured with Tape -Aquacel Extra 1 1 3-ABDOMEN SUPERIOR -Ulcer Cleansing Rinsed/ Irrigated with Saline -Foul Odor after Cleansing No -Primary Dressing Applied Aquacel Extra, NonAdherent Contact Layer -Primary Dressing Covered/Secured with Dry Gauze, Secured with Tape -Aquacel Extra 0 -Wound Comment(s) aquacel extra, adaptic, abd Pain Scale: 0-10 Numeric Is Patient Pain Free? Yes Yes - Visit Discharge Discharge Condition Stable Ambulatory Status Ambulatory Transportation Private Auto Medication Reconcilliation completed & Yes provided to patient/care provider Clinical Summary of Care Provided Yes Additional Wound Wound debrided: Abdomen (inferior) Type of Debridement: Excisional debridement Anesthesia Used: 5% Lidocaine Gel Depth: Down to and including healthy tissue and in the subcutaneous layer Percentage of wound debrided: 100 Instrument Used: 3mm curette Tissue Removed: Slough and vitalized tissue Severity: Fat Layer Exposed Amount of bleeding with debridement: Mild Bleeding Controlled with: Pressure Patient tolerated procedure: Patient tolerated procedure well Assessment/Plan Assessment/Plan (1) Non-healing surgical wound: CODE(S): T81.89XA - Other complications of procedures, not elsewhere classified, initial encounter QUALIFIERS: Encounter type: subsequent encounter Qualified Code(s): T81.89XD - Other complications of procedures, not elsewhere classified, subsequent encounter (2) Type 2 diabetes mellitus: CODE(S): E11.9 - Type 2 diabetes mellitus without complications QUALIFIERS: Diabetes mellitus parts counterman insulin use: without fpc use Diabetes mellitus complication status: with skin complications Diabetes mellitus complication detail: with other skin complication Qualified Code(s): E11.628 - Type 2 diabetes mellitus with other skin complications (3) History of colostomy reversal: CODE(S): Z98.890 - Other specified postprocedural states (4) Surgical wound breakdown: CODE(S): T81.31XA - Disruption of external operation (surgical) wound, not elsewhere classified, initial encounter QUALIFIERS: Encounter type: subsequent encounter Qualified Code(s): T81.31XD - Disruption of external operation (surgical) wound, not elsewhere classified, subsequent encounter (5) Localized swelling of abdominal wall: CODE(S): R22.2 - Localized swelling, mass and lump, trunk (6) Skin ulcer of abdomen with fat layer exposed: CODE(S): L98.492 - Non-pressure chronic ulcer of skin of other sites with fat layer exposed PLAN: Plan Debridement done as documented above, procedure was well-tolerated. No acute concerns reported at this time. Some improvement noted since his last visit. No significant drainage. Continue Aquacel extra and cover with Adaptic/gauze. Gauze/foam dressing over area of retained surgical product. Continue other chronic wound care management. Continue optimal diabetes control. He was advised to let us know if he had any further questions or concerns. Follow-up in 2 weeks or sooner if needed. This note was generated with [employer] software. It may contain incorrect words, spelling, and punctuation that were not noted in checking the note before signing.
--- NOTE | 2024-12-18 10:03 | WC ---
PHOTO-ABD 12/17/24
== END 2024-12-25 23:59 | disposition home or self-care (01) ==
LOC: WC 08:15
PROVIDERS: PCP Internal Medicine; Referring Provider Internal Medicine; Visit Provider Internal Medicine
DX: E11.622 Type 2 diabetes mellitus with other skin ulcer (principal); E11.628 Type 2 diabetes mellitus with other skin complications; T81.89XD Other complications of procedures, not elsewhere classified, subsequent encounter; L98.432 Non-pressure chronic ulcer of abdomen with fat layer exposed; R22.2 Localized swelling, mass and lump, trunk; T81.31XD Disruption of external operation (surgical) wound, not elsewhere classified, subsequent encounter; Z98.890 Other specified postprocedural states
CPT/HCPCS: 11042; 87070; 87075; 87205; 97597

== ENCOUNTER 2025-01-14 08:15 | Outpatient (RCR) | payer OTHER, SELFPAY ==
[2024-12-31 08:22] VITALS: BP 137/91; PULSE 80; RESP 16; TEMP 36.6
--- NOTE | 2024-12-31 08:54 | PCM.WC.PN ---
History of Present Illness Date of Service: 12/31/24 Chief Complaint: Non healing surgical wound History of Wound: Mr. Duque is a 63 yo being managed for surgical wound break down. Has been seen here since September 2023, 1 month after colostomy reversal. Progress of Wound: Worsening to the superior area noted. Culture a few weeks ago without any significant growth. Blood glucose readings have been stable with most recent A1c at 6.5. Has been applying Aquacel extra and Adaptic daily. No chills, fever or feeling of unwell. Objective Data Objective Data Vital Signs: Vital Signs Temp Pulse Resp BP O2 Del Method 97.8 F 80 16 137/91 H Room Air 12/31/24 08:22 12/31/24 08:22 12/31/24 08:22 12/31/24 08:22 12/31/24 08:22 Oxygen Delivery Method Room Air Charges/Coding Procedures Integumentary 111xxx-113xx: 16110 Hannah subq tissue 20 sq cm/< Physical Exam Const alert, oriented x3 and no apparent distress General Appearance: cooperative, comfortable and well kempt HEENT normocephalic, head/scalp atraumatic and hearing grossly normal bilaterally Eyes EOMs intact bilaterally General Eye: normal appearance of both eyes Neck full ROM and supple General: normal visual inspection Resp normal respiratory effort Effort and Inspection: able to speak in complete sentences GI soft to palpation and non-tender Skin Wounds: wounds noted size Size: See clinical note, bed granulating well, margins well approximated and other, no odor, open and surrounding erythema Neuro oriented x3, CN's II-XII intact bilaterally, moves all extremities and no focal motor deficits Psych mental status grossly normal, thought process normal, cooperative and affect normal Debridement Note Debridement Note Wound debrided: Abdomen (superior) Type of Debridement: Excisional debridement Anesthesia Used: 5% Lidocaine Gel Depth: Down to and including healthy tissue and in the subcutaneous layer Percentage of wound debrided: 100 Instrument Used: 5mm curette Tissue Removed: Slough and devitalized tissue Severity: Fat Layer Exposed Amount of bleeding with debridement: Mild Bleeding Controlled with: Pressure Patient tolerated procedure: Patient tolerated procedure well Post-Debridement Measurements and Additional Note: Post-Debridement Measurements/Treatment [id number] - Nurse 1 - General Ulcer Assessment Start: 12/31/24 08:22 Freq: Status: Active Protocol: WC.LOWEXT Activity Type Activity Date Activity User E-sign Co-sign Detail Recorded Client Recorded Date Recorded By Document 12/31/24 08:22 CORINA [id number] 12/31/24 08:38 12/31/24 08:22 - Today's Visit Information Type of service Follow-up Visit (Physician/[employer] ) Arrival Mode Ambulatory Transfer Assistance None Accompanied by Patient Identification Verified (Name & Yes ) Patient Requires Transmission-Based No Precautions Vital Signs Temperature (97.8 F-99.1 F) 97.8 F Temperature Source Temporal Pulse Rate (60-100) 80 Pulse Location Monitor Respiratory Rate (12-18) 16 Respiratory rate source Observation Oxygen Delivery Method Room Air Blood Pressure (90/60-120/80) 137/91 H Blood Pressure Mean (mm Hg) 106 Source Monitor Position Sitting Blood Pressure Location Right Arm History Since Last Visit- (Skip if this is Patient's initial visit) Have you changed medications since your No last visit? Any new allergies or adverse reactions No Had a fall/change in ADL's that may No increase risk of falls Signs or symptoms of abuse and/or No neglect since last visit Have you been in the hospital since your No last visit? Has dressing in place as prescribed Yes Has compression in place as prescribed N/A Has offloadiing in place as prescribed N/A Experienced any changes in pain level or No management Left Footwear Regular Shoe Right Footwear Regular Shoe Pain Scale: 0-10 Numeric Is Patient Pain Free? Yes - Nurse 1 - General Ulcer Measurement Start: 12/31/24 08:22 Freq: Status: Active Protocol: Activity Type Activity Date Activity User E-sign Co-sign Detail Recorded Client Recorded Date Recorded By Document 12/31/24 08:22 CORINA [id number] 12/31/24 08:38 12/31/24 08:22 Wound Center Nurse 1 4-ABDOMEN INFERIOR -Combined with other wound No -Current Size (cm) - Length 1.5 -Current Size (cm) - Width 1.2 -Current Size (cm) - Depth 0.1 -Total Square Cm 1.80 -Date of Last Picture (Recall this 12/31/24 field) -Photo Taken Yes -Tunneling No -Undermining/Tunneling No -Circular Undermining No -Exudate Amt None Present -Wound Margin Distinct, Outline Attached -Granulation Amt Large (67-100%) -Granulation Quality Pale,[place] -Slough/Fibrin Yes -Necrosis Amt Small (1-33%) -Necrotic Tissue Type Adherent Slough -Texture (Matilde-wound Skin Appearance) Assessed -Moisture (Matilde-wound Skin Appearance) Assessed -Color (Matilde-wound Skin Appearance) Assessed -Temperature (Matilde-wound Skin No Abnormality Appearance) (Pt Warm) -Tenderness on Palpation (Matilde-wound No Skin Appearance) -Ulcer Cleansing Soap and Water -Foul Odor after Cleansing No -Anesthetic Used 5% Lidocaine Gel 3-ABDOMEN SUPERIOR -Combined with other wound No -Current Size (cm) - Length 1.5 -Current Size (cm) - Width 1 -Current Size (cm) - Depth 0.1 -Total Square Cm 1.5 -Date of Last Picture (Recall this 12/31/24 field) -Photo Taken Yes -Tunneling No -Undermining/Tunneling No -Circular Undermining No -Exudate Amt Small -Exudate Type Serous -Wound Margin Distinct, Outline Attached -Granulation Amt Large (67-100%) -Granulation Quality Pale,[place] -Slough/Fibrin Yes -Necrosis Amt Small (1-33%) -Necrotic Tissue Type Adherent Slough -Texture (Matilde-wound Skin Appearance) Assessed -Moisture (Matilde-wound Skin Appearance) Assessed -Color (Matilde-wound Skin Appearance) Assessed -Temperature (Matilde-wound Skin No Abnormality Appearance) (Pt Warm) -Ulcer Cleansing Soap and Water -Foul Odor after Cleansing No -Anesthetic Used 5% Lidocaine Gel WC - Nurse 2 - General Ulcer CM Notes Start: 12/31/24 08:22 Freq: Status: Active Protocol: Activity Type Activity Date Activity User E-sign Co-sign Detail Recorded Client Recorded Date Recorded By Document 12/31/24 08:42 [id number] 12/31/24 08:48 12/31/24 08:42 Wound Center Nurse 2 4-ABDOMEN INFERIOR -Time 08:43 -Correct Patient Yes -Correct Side, Site, Position Yes -Correct Procedure Yes -Procedure Performed Yes -Type of Procedure Debridement -Clinical Debridement Subcutaneous -Tissue Removed Subcutaneous -Post Debridement (cm) - Length 0.7 -Post Debridement (cm) - Width 0.7 -Post Debridement (cm) - Depth 0.1 -Total Square (Post) (cm) 0.49 -Area of Debridement (cm) - Length 0.7 -Area of Debridement (cm) - Width 0.7 -Total Square (Area) (cm) 0.49 -Tunneling No -Undermining/Tunneling No -Circular Undermining No -Wound/Ulcer Outcome Not Healed -Ulcer Cleansing Rinsed/ Irrigated with Saline -Foul Odor after Cleansing No -Bioengineered Tissue No -Bleeding Controlled with Pressure -Treatment Response Procedure Tolerated Well -Offloading No -Debridement - Subq, 1st 20sq cm No 3-ABDOMEN SUPERIOR -Time 08:44 -Correct Patient Yes -Correct Side, Site, Position Yes -Correct Procedure Yes -Procedure Performed Yes -Type of Procedure Debridement -Clinical Debridement Subcutaneous -Tissue Removed Subcutaneous -Post Debridement (cm) - Length 1.1 -Post Debridement (cm) - Width 0.8 -Post Debridement (cm) - Depth 0.1 -Total Square (Post) (cm) 0.88 -Area of Debridement (cm) - Length 1.1 -Area of Debridement (cm) - Width 0.8 -Total Square (Area) (cm) 0.88 -Tunneling No -Undermining/Tunneling No -Circular Undermining No -Wound/Ulcer Outcome Not Healed -Ulcer Cleansing Rinsed/ Irrigated with Saline -Foul Odor after Cleansing No -Bioengineered Tissue No -Bleeding Controlled with Pressure -Treatment Response Procedure Tolerated Well -Offloading No -Debridement - Subq, 1st 20sq cm Yes Pain Scale: 0-10 Numeric Is Patient Pain Free? Yes Additional Wound Wound debrided: Abdomen (inferior) Type of Debridement: Excisional debridement Anesthesia Used: 5% Lidocaine Gel Depth: Down to and including healthy tissue and in the subcutaneous layer Percentage of wound debrided: 100 Instrument Used: 5mm curette Tissue Removed: Slough and devitalized tissue Severity: Fat Layer Exposed Amount of bleeding with debridement: Mild Bleeding Controlled with: Pressure Patient tolerated procedure: Patient tolerated procedure well Assessment/Plan Assessment/Plan (1) Non-healing surgical wound: CODE(S): T81.89XA - Other complications of procedures, not elsewhere classified, initial encounter QUALIFIERS: Encounter type: subsequent encounter Qualified Code(s): T81.89XD - Other complications of procedures, not elsewhere classified, subsequent encounter (2) Type 2 diabetes mellitus: CODE(S): E11.9 - Type 2 diabetes mellitus without complications QUALIFIERS: Diabetes mellitus complication detail: with other skin complication Diabetes mellitus complication status: with skin complications Diabetes mellitus intermediate insulin use: without intermediate use Qualified Code(s): E11.628 - Type 2 diabetes mellitus with other skin complications (3) History of colostomy reversal: CODE(S): Z98.890 - Other specified postprocedural states (4) Surgical wound breakdown: CODE(S): T81.31XA - Disruption of external operation (surgical) wound, not elsewhere classified, initial encounter QUALIFIERS: Encounter type: subsequent encounter Qualified Code(s): T81.31XD - Disruption of external operation (surgical) wound, not elsewhere classified, subsequent encounter (5) Localized swelling of abdominal wall: CODE(S): R22.2 - Localized swelling, mass and lump, trunk (6) Skin ulcer of abdomen with fat layer exposed: CODE(S): L98.492 - Non-pressure chronic ulcer of skin of other sites with fat layer exposed PLAN: Plan Debridement done as documented above, procedure was well-tolerated. As above, worsening to the superior area noted today. No concern for increased drainage and blood glucose readings have been pretty stable with most recent A1c at 6.5. Prior applications for skin substitute have been denied. Has also been seen by plastic surgery and no indication for graft closure. Add on a thin layer of mupirocin, continue Aquacel extra and cover with Adaptic/gauze. Gauze/foam dressing over area of retained surgical product. Continue other chronic wound care management. Continue optimal diabetes control. He was advised to let us know if he had any further questions or concerns. Follow-up in 1 week or sooner if needed. This note was generated with [email or web address] dictation software. It may contain incorrect words, spelling, and punctuation that were not noted in checking the note before signing.
--- NOTE | 2025-01-01 08:48 | WC ---
PHOTO-ABD INF
[2025-01-07 08:05] VITALS: BP 122/67; PULSE 83; RESP 16; TEMP 36.4
--- NOTE | 2025-01-07 08:29 | PCM.WC.PN ---
History of Present Illness Date of Service: 01/07/25 Chief Complaint: Non healing surgical wound History of Wound: Mr. Duque is a 63 yo being managed for surgical wound break down. Has been seen here since September 2023, 1 month after colostomy reversal. Progress of Wound: Continued worsening of the superior ulcer. Cultures taken on the ninth with no growth aerobically and anaerobically. Denies any significant drainage or pain. A week ago, mupirocin ointment was added on to regimen. Blood glucose readings have been stable. Feels well otherwise. Objective Data Objective Data Vital Signs: Vital Signs Temp Pulse Resp BP O2 Del Method 97.5 F L 83 16 122/67 H Room Air 01/07/25 08:05 01/07/25 08:05 01/07/25 08:05 01/07/25 08:05 12/31/24 08:22 Oxygen Delivery Method Room Air Charges/Coding Procedures Integumentary 111xxx-113xx: [id number] Hannah subq tissue 20 sq cm/< Physical Exam Const alert, oriented x3 and no apparent distress General Appearance: cooperative, comfortable and well kempt HEENT normocephalic, head/scalp atraumatic and hearing grossly normal bilaterally Eyes EOMs intact bilaterally General Eye: normal appearance of both eyes Neck full ROM and supple General: normal visual inspection Resp normal respiratory effort Effort and Inspection: able to speak in complete sentences GI soft to palpation and non-tender Skin Wounds: wounds noted size Size: See clinical note, bed granulating well, margins well approximated and other, no odor, open and surrounding erythema Neuro oriented x3, CN's II-XII intact bilaterally, moves all extremities and no focal motor deficits Psych mental status grossly normal, thought process normal, cooperative and affect normal Debridement Note Debridement Note Wound debrided: Abdomen (superior) Type of Debridement: Excisional debridement Anesthesia Used: 5% Lidocaine Gel Depth: Down to and including healthy tissue and in the subcutaneous layer Percentage of wound debrided: 100 Instrument Used: 5mm curette Tissue Removed: Slough and devitalized tissue Severity: Fat Layer Exposed Amount of bleeding with debridement: Mild Bleeding Controlled with: Pressure Patient tolerated procedure: Patient tolerated procedure well Post-Debridement Measurements and Additional Note: Post-Debridement Measurements/Treatment WC - Nurse 1 - General Ulcer Assessment Start: 12/31/24 08:22 Freq: Status: Active Protocol: JUSTIN Activity Type Activity Date Activity User E-sign Co-sign Detail Recorded Client Recorded Date Recorded By Document 12/31/24 08:22 CORINA [id number] 12/31/24 08:38 Document 01/07/25 08:05 MISHA [id number] 01/07/25 08:16 MISHA 12/31/24 01/07/25 08:22 08:05 - Today's Visit Information Type of service Follow-up Visit Follow-up Visit (Physician/[facility]MASTER (Physician/[facility]ARBORMASTER ) ) Arrival Mode Ambulatory Ambulatory Transfer Assistance None Accompanied by Patient Identification Verified (Name & Yes Yes ) Patient Requires Transmission-Based No No Precautions Vital Signs Temperature (97.8 F-99.1 F) 97.8 F 97.5 F L Temperature Source Temporal Temporal Pulse Rate (60-100) 80 83 Pulse Location Monitor Monitor Respiratory Rate (12-18) 16 16 Respiratory rate source Observation Observation Oxygen Delivery Method Room Air Blood Pressure (90/60-120/80) 137/91 H 122/67 H Blood Pressure Mean (mm Hg) 106 85 Source Monitor Monitor Position Sitting Sitting Blood Pressure Location Right Arm Left Arm History Since Last Visit- (Skip if this is Patient's initial visit) Have you changed medications since your No Yes last visit? Any new allergies or adverse reactions No No Had a fall/change in ADL's that may No No increase risk of falls Signs or symptoms of abuse and/or No neglect since last visit Have you been in the hospital since your No No last visit? Has dressing in place as prescribed Yes Yes Has compression in place as prescribed N/A N/A Has offloadiing in place as prescribed N/A Experienced any changes in pain level or No No management Left Footwear Regular Shoe Regular Shoe Right Footwear Regular Shoe Regular Shoe Pain Scale: 0-10 Numeric Is Patient Pain Free? Yes Yes - Nurse 1 - General Ulcer Measurement Start: 12/31/24 08:22 Freq: Status: Active Protocol: Activity Type Activity Date Activity User E-sign Co-sign Detail Recorded Client Recorded Date Recorded By Document 12/31/24 08:22 CORINA [id number] 12/31/24 08:38 Document 01/07/25 08:05 MISHA [id number] 01/07/25 08:16 MISHA 12/31/24 01/07/25 08:22 08:05 Wound Center Nurse 1 4-ABDOMEN INFERIOR -Combined with other wound No No -Current Size (cm) - Length 1.5 1.3 -Current Size (cm) - Width 1.2 0.7 -Current Size (cm) - Depth 0.1 0.1 -Total Square Cm 1.80 0.91 -Date of Last Picture (Recall this 12/31/24 field) -Photo Taken Yes Yes -Epithelialization Medium 34-66% -Tunneling No No -Undermining/Tunneling No No -Circular Undermining No No -Exudate Amt None Present Small -Exudate Type Serosanguineous -Wound Margin Distinct, Flat & Intact Outline Attached -Granulation Amt Large (67-100%) Medium (34-66%) -Granulation Quality Pale,[place] -Slough/Fibrin Yes Yes -Necrosis Amt Small (1-33%) Small (1-33%) -Necrotic Tissue Type Adherent Slough Adherent Slough -Structure Exposed N/A -Texture (Matilde-wound Skin Appearance) Assessed Assessed, Scarring -Moisture (Matilde-wound Skin Appearance) Assessed Assessed,Dry/ Scaly -Color (Matilde-wound Skin Appearance) Assessed Assessed -Temperature (Matilde-wound Skin No Abnormality No Abnormality Appearance) (Pt Warm) (Pt Warm) -Tenderness on Palpation (Matilde-wound No No Skin Appearance) -Ulcer Cleansing Soap and Water Rinsed/ Irrigated with Saline -Foul Odor after Cleansing No No -Anesthetic Used 5% Lidocaine 5% Lidocaine Gel Gel 3-ABDOMEN SUPERIOR -Combined with other wound No No -Current Size (cm) - Length 1.5 1.4 -Current Size (cm) - Width 1 1.3 -Current Size (cm) - Depth 0.1 0.1 -Total Square Cm 1.5 1.82 -Date of Last Picture (Recall this 12/31/24 field) -Photo Taken Yes Yes -Epithelialization Medium 34-66% -Tunneling No No -Undermining/Tunneling No No -Circular Undermining No No -Exudate Amt Small Small -Exudate Type Serous Serosanguineous -Wound Margin Distinct, Flat & Intact Outline Attached -Granulation Amt Large (67-100%) Medium (34-66%) -Granulation Quality Pale,[place] -Slough/Fibrin Yes Yes -Necrosis Amt Small (1-33%) Small (1-33%) -Necrotic Tissue Type Adherent Slough Adherent Slough -Structure Exposed N/A -Texture (Matilde-wound Skin Appearance) Assessed Assessed, Scarring -Moisture (Matilde-wound Skin Appearance) Assessed No Abnormality, Assessed -Color (Matilde-wound Skin Appearance) Assessed Assessed -Temperature (Matilde-wound Skin No Abnormality No Abnormality Appearance) (Pt Warm) (Pt Warm) -Tenderness on Palpation (Matilde-wound No Skin Appearance) -Ulcer Cleansing Soap and Water Rinsed/ Irrigated with Saline -Foul Odor after Cleansing No No -Anesthetic Used 5% Lidocaine 5% Lidocaine Gel Gel Lower Limb Edema Present NA WC - Nurse 2 - General Ulcer CM Notes Start: 12/31/24 08:22 Freq: Status: Active Protocol: Activity Type Activity Date Activity User E-sign Co-sign Detail Recorded Client Recorded Date Recorded By Document 12/31/24 08:42 [id number] 12/31/24 08:48 Document 01/07/25 08:23 [id number] 01/07/25 08:27 12/31/24 01/07/25 08:42 08:23 Wound Center Nurse 2 4-ABDOMEN INFERIOR -Time 08:43 08:24 -Correct Patient Yes Yes -Correct Side, Site, Position Yes Yes -Correct Procedure Yes Yes -Procedure Performed Yes Yes -Type of Procedure Debridement Debridement -Clinical Debridement Subcutaneous Subcutaneous -Tissue Removed Subcutaneous Subcutaneous -Post Debridement (cm) - Length 0.7 1.0 -Post Debridement (cm) - Width 0.7 0.8 -Post Debridement (cm) - Depth 0.1 0.1 -Total Square (Post) (cm) 0.49 0.80 -Area of Debridement (cm) - Length 0.7 1.0 -Area of Debridement (cm) - Width 0.7 0.8 -Total Square (Area) (cm) 0.49 0.80 -Tunneling No No -Undermining/Tunneling No No -Circular Undermining No No -Wound/Ulcer Outcome Not Healed Not Healed -Ulcer Cleansing Rinsed/ Rinsed/ Irrigated with Irrigated with Saline Saline -Foul Odor after Cleansing No No -Bioengineered Tissue No No -Bleeding Controlled with Pressure Pressure -Treatment Response Procedure Procedure Tolerated Well Tolerated Well -Offloading No -Debridement - Subq, 1st 20sq cm No No 3-ABDOMEN SUPERIOR -Time 08:44 08:24 -Correct Patient Yes Yes -Correct Side, Site, Position Yes Yes -Correct Procedure Yes Yes -Procedure Performed Yes Yes -Type of Procedure Debridement Debridement -Clinical Debridement Subcutaneous Subcutaneous -Tissue Removed Subcutaneous Subcutaneous -Post Debridement (cm) - Length 1.1 1.5 -Post Debridement (cm) - Width 0.8 1.1 -Post Debridement (cm) - Depth 0.1 0.1 -Total Square (Post) (cm) 0.88 1.65 -Area of Debridement (cm) - Length 1.1 1.5 -Area of Debridement (cm) - Width 0.8 1.1 -Total Square (Area) (cm) 0.88 1.65 -Tunneling No No -Undermining/Tunneling No No -Circular Undermining No No -Wound/Ulcer Outcome Not Healed Not Healed -Ulcer Cleansing Rinsed/ Rinsed/ Irrigated with Irrigated with Saline Saline -Foul Odor after Cleansing No No -Bioengineered Tissue No No -Bleeding Controlled with Pressure Pressure -Treatment Response Procedure Procedure Tolerated Well Tolerated Well -Offloading No -Debridement - Subq, 1st 20sq cm Yes Yes Pain Scale: 0-10 Numeric Is Patient Pain Free? Yes Yes - Nurse 3 - General Ulcer D/C NN Start: 12/31/24 08:22 Freq: Status: Active Protocol: Activity Type Activity Date Activity User E-sign Co-sign Detail Recorded Client Recorded Date Recorded By Document 12/31/24 09:14 CORINA [id number] 12/31/24 09:17 Edit Result 12/31/24 09:14 CORINA (1) [id number] 12/31/24 09:21 CORINA (1) 4-ABDOMEN INFERIOR - Wound Comment(s) => bacitracin ointment applied first, then aquacel, then adaptic, then ABD 3-ABDOMEN SUPERIOR - Wound Comment(s) => bacitracin ointment applied first, then aquacel, then adaptic, then ABD 12/31/24 09:14 Wound Care Center Nurse 3 4-ABDOMEN INFERIOR -Ulcer Cleansing Not Cleansed -Primary Dressing Applied Aquacel Extra, NonAdherent Contact Layer -Primary Dressing Covered/Secured with Secured with Tape -Aquacel Extra 1 -Wound Comment(s) bacitracin ointment applied first, then aquacel, then adaptic, then ABD 3-ABDOMEN SUPERIOR -Ulcer Cleansing Not Cleansed -Primary Dressing Applied Aquacel Extra, NonAdherent Contact Layer -Aquacel Extra 0 -Wound Comment(s) bacitracin ointment applied first, then aquacel, then adaptic, then ABD Pain Scale: 0-10 Numeric Is Patient Pain Free? Yes WC - Visit Discharge Discharge Condition Stable Ambulatory Status Ambulatory Transportation Private Auto Accompanied by Additional Wound Wound debrided: Abdomen (inferior) Type of Debridement: Excisional debridement Anesthesia Used: 5% Lidocaine Gel Depth: Down to and including healthy tissue and in the subcutaneous layer Percentage of wound debrided: 100 Instrument Used: 5mm curette Tissue Removed: Slough and devitalized tissue Severity: Fat Layer Exposed Amount of bleeding with debridement: Mild Bleeding Controlled with: Pressure Patient tolerated procedure: Patient tolerated procedure well Assessment/Plan Assessment/Plan (1) Non-healing surgical wound: CODE(S): T81.89XA - Other complications of procedures, not elsewhere classified, initial encounter QUALIFIERS: Encounter type: subsequent encounter Qualified Code(s): T81.89XD - Other complications of procedures, not elsewhere classified, subsequent encounter (2) Type 2 diabetes mellitus: CODE(S): E11.9 - Type 2 diabetes mellitus without complications QUALIFIERS: Diabetes mellitus complication detail: with other skin complication Diabetes mellitus complication status: with skin complications Diabetes mellitus ocean transportation intermediary insulin use: without ocean transportation intermediary use Qualified Code(s): E11.628 - Type 2 diabetes mellitus with other skin complications (3) History of colostomy reversal: CODE(S): Z98.890 - Other specified postprocedural states (4) Surgical wound breakdown: CODE(S): T81.31XA - Disruption of external operation (surgical) wound, not elsewhere classified, initial encounter QUALIFIERS: Encounter type: subsequent encounter Qualified Code(s): T81.31XD - Disruption of external operation (surgical) wound, not elsewhere classified, subsequent encounter (5) Localized swelling of abdominal wall: CODE(S): R22.2 - Localized swelling, mass and lump, trunk (6) Skin ulcer of abdomen with fat layer exposed: CODE(S): L98.492 - Non-pressure chronic ulcer of skin of other sites with fat layer exposed PLAN: Plan Debridement done as documented above, procedure was well-tolerated. Continued worsening of abdominal ulcerations noted. As above, at his last visit topical mupirocin was added on, will discontinue due to worsening. He has used several traditional products including collagen, copper and calcium alginate dressings. Several cultures taken including fungal cultures. Best recovery/healing was following use of sample applications of skin substitute prior to his colostomy reversal however since his reversal, though significant progress was initially made, there has been stalling over several months and now, worsening. His blood glucose readings have been much better lately with most recent A1c at 6.5. Given his significant response to a skin substitute in the past, I believe this would the best way forward to achieve complete closure and healing. He has been referred to plastic surgery for possible closure and this was not deemed necessary. Definitely more risks and cost implications with a surgical procedure then application of a skin substitute. Will initiate process again and hopefully this is covered by his insurance. For now, continue Aquacel extra and cover with Adaptic/gauze. Gauze/foam dressing over area of retained surgical product. Continue other chronic wound care management. Continue optimal diabetes control. He was advised to let us know if he had any further questions or concerns. Follow-up in 1 week or sooner if needed. This note was generated with [employer] dictation software. It may contain incorrect words, spelling, and punctuation that were not noted in checking the note before signing.
--- NOTE | 2025-01-11 08:33 | WC ---
PHOTO-ABD SUP 01/07/25
--- NOTE | 2025-01-11 08:36 | WC ---
PHOTO-ABD INF 01/07/25
[2025-01-14 08:28] VITALS: BP 149/90; PULSE 82; RESP 18; TEMP 36.1
--- NOTE | 2025-01-14 10:06 | PCM.WC.PN ---
History of Present Illness Date of Service: 01/14/25 Chief Complaint: Non healing surgical wound History of Wound: Mr. Duque is a 63 yo being managed for surgical wound break down. Has been seen here since September 2023, 1 month after colostomy reversal. Progress of Wound: No acute concerns reported at this time. Some improvement since his last visit. Objective Data Objective Data Vital Signs: Vital Signs Temp Pulse Resp BP O2 Del Method 97 F L 82 18 149/90 H Room Air 01/14/25 08:28 01/14/25 08:28 01/14/25 08:28 01/14/25 08:28 01/14/25 08:28 Oxygen Delivery Method Room Air Charges/Coding Procedures Integumentary 111xxx-113xx: [id number] Hannah subq tissue 20 sq cm/< Physical Exam Const alert, oriented x3 and no apparent distress General Appearance: cooperative, comfortable and well kempt HEENT normocephalic, head/scalp atraumatic and hearing grossly normal bilaterally Eyes EOMs intact bilaterally General Eye: normal appearance of both eyes Neck full ROM and supple General: normal visual inspection Resp normal respiratory effort Effort and Inspection: able to speak in complete sentences GI soft to palpation and non-tender Skin Wounds: wounds noted size Size: See clinical note, bed granulating well, margins well approximated and other, no odor, open and surrounding erythema Neuro oriented x3, CN's II-XII intact bilaterally, moves all extremities and no focal motor deficits Psych mental status grossly normal, thought process normal, cooperative and affect normal Debridement Note Debridement Note Wound debrided: Abdomen (superior) Type of Debridement: Excisional debridement Anesthesia Used: 5% Lidocaine Gel Depth: Down to and including healthy tissue and in the subcutaneous layer Percentage of wound debrided: 100 Instrument Used: 5mm curette Tissue Removed: Slough and devitalized tissue Severity: Fat Layer Exposed Amount of bleeding with debridement: Mild Bleeding Controlled with: Pressure Patient tolerated procedure: Patient tolerated procedure well Post-Debridement Measurements and Additional Note: Post-Debridement Measurements/Treatment WC - Nurse 1 - General Ulcer Assessment Start: 12/31/24 08:22 Freq: Status: Active Protocol: JUSTIN Activity Type Activity Date Activity User E-sign Co-sign Detail Recorded Client Recorded Date Recorded By Document 12/31/24 08:22 CORINA [id number] 12/31/24 08:38 CORINA Document 01/07/25 08:05 JF [id number] 01/07/25 08:16 Document 01/14/25 08:28 RB [id number] 01/14/25 08:31 RB 12/31/24 01/07/25 01/14/25 08:22 08:05 08:28 - Today's Visit Information Type of service Follow-up Visit Follow-up Visit Follow-up Visit (Physician/HYDROTEL OPERATOR (Physician/HYDROTEL OPERATOR (Physician/HYDROTEL OPERATOR ) ) ) Arrival Mode Ambulatory Ambulatory Ambulatory Transfer Assistance None None Accompanied by Patient Identification Verified (Name & Yes Yes Yes ) Patient Requires Transmission-Based No No No Precautions Vital Signs Temperature (97.8 F-99.1 F) 97.8 F 97.5 F L 97 F L Temperature Source Temporal Temporal Temporal Pulse Rate (60-100) 80 83 82 Pulse Location Monitor Monitor Monitor Respiratory Rate (12-18) 16 16 18 Respiratory rate source Observation Observation Observation Oxygen Delivery Method Room Air Room Air Blood Pressure (90/60-120/80) 137/91 H 122/67 H 149/90 H Blood Pressure Mean (mm Hg) 106 85 109 Source Monitor Monitor Monitor Position Sitting Sitting Semi-Fowlers Blood Pressure Location Right Arm Left Arm Left Arm History Since Last Visit- (Skip if this is Patient's initial visit) Have you changed medications since your No Yes No last visit? Any new allergies or adverse reactions No No No Had a fall/change in ADL's that may No No No increase risk of falls Signs or symptoms of abuse and/or No No neglect since last visit Have you been in the hospital since your No No No last visit? Has dressing in place as prescribed Yes Yes Yes Has compression in place as prescribed N/A N/A N/A Has offloadiing in place as prescribed N/A N/A Experienced any changes in pain level or No No No management Left Footwear Regular Shoe Regular Shoe Regular Shoe Right Footwear Regular Shoe Regular Shoe Regular Shoe Pain Scale: 0-10 Numeric Is Patient Pain Free? Yes Yes Yes - Nurse 1 - General Ulcer Measurement Start: 12/31/24 08:22 Freq: Status: Active Protocol: Activity Type Activity Date Activity User E-sign Co-sign Detail Recorded Client Recorded Date Recorded By Document 12/31/24 08:22 CORINA [id number] 12/31/24 08:38 Document 01/07/25 08:05 JF [id number] 01/07/25 08:16 JF Document 01/14/25 08:28 RB [id number] 01/14/25 08:31 RB 12/31/24 01/07/25 01/14/25 08:22 08:05 08:28 Wound Center Nurse 1 4-ABDOMEN INFERIOR -Combined with other wound No No No -Current Size (cm) - Length 1.5 1.3 0.8 -Current Size (cm) - Width 1.2 0.7 0.8 -Current Size (cm) - Depth 0.1 0.1 0.1 -Total Square Cm 1.80 0.91 0.64 -Date of Last Picture (Recall this 12/31/24 01/14/25 field) -Photo Taken Yes Yes Yes -Epithelialization Medium 34-66% -Tunneling No No No -Undermining/Tunneling No No No -Circular Undermining No No No -Exudate Amt None Present Small Medium -Exudate Type Serosanguineous Serosanguineous -Wound Margin Distinct, Flat & Intact Distinct, Outline Outline Attached Attached -Granulation Amt Large (67-100%) Medium (34-66%) Medium (34-66%) -Granulation Quality Pale,Powell Powell Powell -Slough/Fibrin Yes Yes Yes -Necrosis Amt Small (1-33%) Small (1-33%) Medium (34-66%) -Necrotic Tissue Type Adherent Slough Adherent Slough Adherent Slough -Structure Exposed N/A N/A -Texture (Matilde-wound Skin Appearance) Assessed Assessed, Assessed, Scarring Scarring -Moisture (Matilde-wound Skin Appearance) Assessed Assessed,Dry/ Assessed Scaly -Color (Matilde-wound Skin Appearance) Assessed Assessed Assessed -Temperature (Matilde-wound Skin No Abnormality No Abnormality No Abnormality Appearance) (Pt Warm) (Pt Warm) (Pt Warm) -Tenderness on Palpation (Matilde-wound No No No Skin Appearance) -Ulcer Cleansing Soap and Water Rinsed/ Wound Cleanser Irrigated with Saline -Foul Odor after Cleansing No No No -Anesthetic Used 5% Lidocaine 5% Lidocaine 5% Lidocaine Gel Gel Gel 3-ABDOMEN SUPERIOR -Combined with other wound No No -Current Size (cm) - Length 1.5 1.4 1.2 -Current Size (cm) - Width 1 1.3 1.2 -Current Size (cm) - Depth 0.1 0.1 0.1 -Total Square Cm 1.5 1.82 1.44 -Date of Last Picture (Recall this 12/31/24 01/14/25 field) -Photo Taken Yes Yes Yes -Epithelialization Medium 34-66% -Tunneling No No No -Undermining/Tunneling No No No -Circular Undermining No No No -Exudate Amt Small Small Medium -Exudate Type Serous Serosanguineous Serosanguineous -Wound Margin Distinct, Flat & Intact Distinct, Outline Outline Attached Attached -Granulation Amt Large (67-100%) Medium (34-66%) Large (67-100%) -Granulation Quality Pale,Powell Powell Powell -Slough/Fibrin Yes Yes Yes -Necrosis Amt Small (1-33%) Small (1-33%) Medium (34-66%) -Necrotic Tissue Type Adherent Slough Adherent Slough Adherent Slough -Structure Exposed N/A N/A -Texture (Matilde-wound Skin Appearance) Assessed Assessed, Assessed, Scarring Scarring -Moisture (Matilde-wound Skin Appearance) Assessed No Abnormality, Assessed Assessed -Color (Matilde-wound Skin Appearance) Assessed Assessed Assessed -Temperature (Matilde-wound Skin No Abnormality No Abnormality No Abnormality Appearance) (Pt Warm) (Pt Warm) (Pt Warm) -Tenderness on Palpation (Matilde-wound No No Skin Appearance) -Ulcer Cleansing Soap and Water Rinsed/ Wound Cleanser Irrigated with Saline -Foul Odor after Cleansing No No No -Anesthetic Used 5% Lidocaine 5% Lidocaine 5% Lidocaine Gel Gel Gel Lower Limb Edema Present NA WC - Nurse 2 - General Ulcer CM Notes Start: 12/31/24 08:22 Freq: Status: Active Protocol: Activity Type Activity Date Activity User E-sign Co-sign Detail Recorded Client Recorded Date Recorded By Document 12/31/24 08:42 [id number] 12/31/24 08:48 Document 01/07/25 08:23 [id number] 01/07/25 08:27 Document 01/14/25 08:54 [id number] 01/14/25 08:58 12/31/24 01/07/25 01/14/25 08:42 08:23 08:54 Wound Center Nurse 2 4-ABDOMEN INFERIOR -Time 08:43 08:24 08:55 -Correct Patient Yes Yes Yes -Correct Side, Site, Position Yes Yes Yes -Correct Procedure Yes Yes Yes -Procedure Performed Yes Yes Yes -Type of Procedure Debridement Debridement Debridement -Clinical Debridement Subcutaneous Subcutaneous Subcutaneous -Tissue Removed Subcutaneous Subcutaneous Subcutaneous -Post Debridement (cm) - Length 0.7 1.0 -Post Debridement (cm) - Width 0.7 0.8 -Post Debridement (cm) - Depth 0.1 0.1 -Total Square (Post) (cm) 0.49 0.80 -Area of Debridement (cm) - Length 0.7 1.0 -Area of Debridement (cm) - Width 0.7 0.8 -Total Square (Area) (cm) 0.49 0.80 -Tunneling No No No -Undermining/Tunneling No No No -Circular Undermining No No No -Wound/Ulcer Outcome Not Healed Not Healed Not Healed -Ulcer Cleansing Rinsed/ Rinsed/ Rinsed/ Irrigated with Irrigated with Irrigated with Saline Saline Saline -Foul Odor after Cleansing No No No -Bioengineered Tissue No No No -Bleeding Controlled with Pressure Pressure Pressure -Treatment Response Procedure Procedure Procedure Tolerated Well Tolerated Well Tolerated Well -Offloading No No -Debridement - Subq, 1st 20sq cm No No No 3-ABDOMEN SUPERIOR -Time 08:44 08:24 08:55 -Correct Patient Yes Yes Yes -Correct Side, Site, Position Yes Yes Yes -Correct Procedure Yes Yes Yes -Procedure Performed Yes Yes Yes -Type of Procedure Debridement Debridement Debridement -Clinical Debridement Subcutaneous Subcutaneous Subcutaneous -Tissue Removed Subcutaneous Subcutaneous Subcutaneous -Post Debridement (cm) - Length 1.1 1.5 -Post Debridement (cm) - Width 0.8 1.1 -Post Debridement (cm) - Depth 0.1 0.1 -Total Square (Post) (cm) 0.88 1.65 -Area of Debridement (cm) - Length 1.1 1.5 -Area of Debridement (cm) - Width 0.8 1.1 -Total Square (Area) (cm) 0.88 1.65 -Tunneling No No No -Undermining/Tunneling No No No -Circular Undermining No No No -Wound/Ulcer Outcome Not Healed Not Healed Not Healed -Ulcer Cleansing Rinsed/ Rinsed/ Rinsed/ Irrigated with Irrigated with Irrigated with Saline Saline Saline -Foul Odor after Cleansing No No No -Bioengineered Tissue No No No -Bleeding Controlled with Pressure Pressure Pressure -Treatment Response Procedure Procedure Procedure Tolerated Well Tolerated Well Tolerated Well -Offloading No No -Debridement - Subq, 1st 20sq cm Yes Yes Yes Pain Scale: 0-10 Numeric Is Patient Pain Free? Yes Yes Yes WC - Nurse 3 - General Ulcer D/C NN Start: 12/31/24 08:22 Freq: Status: Active Protocol: Activity Type Activity Date Activity User E-sign Co-sign Detail Recorded Client Recorded Date Recorded By Document 12/31/24 09:14 JM [id number] 12/31/24 09:17 Edit Result 12/31/24 09:14 JM (1) [id number] 12/31/24 09:21 JM Document 01/07/25 08:43 RB [id number] 01/07/25 08:44 RB Document 01/14/25 09:01 TS [id number] 01/14/25 09:06 TS (1) 4-ABDOMEN INFERIOR - Wound Comment(s) => bacitracin ointment applied first, then aquacel, then adaptic, then ABD 3-ABDOMEN SUPERIOR - Wound Comment(s) => bacitracin ointment applied first, then aquacel, then adaptic, then ABD 12/31/24 01/07/25 01/14/25 09:14 08:43 09:01 Wound Care Center Nurse 3 4-ABDOMEN INFERIOR -Ulcer Cleansing Not Cleansed Rinsed/ Rinsed/ Irrigated with Irrigated with Saline Saline -Primary Dressing Applied Aquacel Extra, Aquacel Extra, Aquacel Extra, NonAdherent NonAdherent NonAdherent Contact Layer Contact Layer Contact Layer -Other Dressing ABD abd -Primary Dressing Covered/Secured with Secured with Secured with Secured with Tape Tape Tape -Aquacel Extra 1 0 1 -Wound Comment(s) bacitracin ointment applied first, then aquacel, then adaptic, then ABD 3-ABDOMEN SUPERIOR -Ulcer Cleansing Not Cleansed Rinsed/ Rinsed/ Irrigated with Irrigated with Saline Saline -Primary Dressing Applied Aquacel Extra, Aquacel Extra, Aquacel Extra, NonAdherent NonAdherent NonAdherent Contact Layer Contact Layer Contact Layer -Other Dressing ABD abd -Primary Dressing Covered/Secured with Secured with Secured with Tape Tape -Aquacel Extra 0 1 0 -Wound Comment(s) bacitracin ointment applied first, then aquacel, then adaptic, then ABD Treatment Response Procedure Tolerated Well Pain Scale: 0-10 Numeric Is Patient Pain Free? Yes Yes Yes WC - Visit Discharge Discharge Condition Stable Stable Stable Ambulatory Status Ambulatory Ambulatory Ambulatory Transportation Private Auto Private Auto Private Auto Accompanied by Medication Reconcilliation completed & No No provided to patient/care provider Clinical Summary of Care Provided Yes Yes Additional Wound Wound debrided: Abdomen (inferior) Type of Debridement: Excisional debridement Anesthesia Used: 5% Lidocaine Gel Depth: Down to and including healthy tissue and in the subcutaneous layer Percentage of wound debrided: 100 Instrument Used: 5mm curette Tissue Removed: Slough and devitalized tissue Severity: Fat Layer Exposed Amount of bleeding with debridement: Mild Bleeding Controlled with: Pressure Patient tolerated procedure: Patient tolerated procedure well Assessment/Plan Assessment/Plan (1) Non-healing surgical wound: CODE(S): T81.89XA - Other complications of procedures, not elsewhere classified, initial encounter QUALIFIERS: Encounter type: subsequent encounter Qualified Code(s): T81.89XD - Other complications of procedures, not elsewhere classified, subsequent encounter (2) Type 2 diabetes mellitus: CODE(S): E11.9 - Type 2 diabetes mellitus without complications QUALIFIERS: Diabetes mellitus chcf insulin use: without filler leaf cutter long use Diabetes mellitus complication status: with skin complications Diabetes mellitus complication detail: with other skin complication Qualified Code(s): E11.628 - Type 2 diabetes mellitus with other skin complications (3) History of colostomy reversal: CODE(S): Z98.890 - Other specified postprocedural states (4) Surgical wound breakdown: CODE(S): T81.31XA - Disruption of external operation (surgical) wound, not elsewhere classified, initial encounter QUALIFIERS: Encounter type: subsequent encounter Qualified Code(s): T81.31XD - Disruption of external operation (surgical) wound, not elsewhere classified, subsequent encounter (5) Localized swelling of abdominal wall: CODE(S): R22.2 - Localized swelling, mass and lump, trunk (6) Skin ulcer of abdomen with fat layer exposed: CODE(S): L98.492 - Non-pressure chronic ulcer of skin of other sites with fat layer exposed PLAN: Plan Debridement done as documented above, procedure was well-tolerated. No acute concerns reported at this time. No concerns with drainage. Superior ulcer with some improvement but inferior with no significant change. Still awaiting skin substitute approval. Continue Aquacel extra and cover with Adaptic/gauze. Gauze/foam dressing over area of retained surgical product. Continue other chronic wound care management. Continue optimal diabetes control. He was advised to let us know if he had any further questions or concerns. Follow-up in 2 weeks. This note was generated with Singly dictation software. It may contain incorrect words, spelling, and punctuation that were not noted in checking the note before signing.
--- NOTE | 2025-01-15 08:41 | WC ---
PHOTO-ABD INF 01/14/25
--- NOTE | 2025-01-15 08:42 | WC ---
PHOTO-ABD SUP 01/14/25
== END 2025-01-24 23:59 | disposition home or self-care (01) ==
LOC: WC 08:15
PROVIDERS: PCP Internal Medicine; Referring Provider Internal Medicine; Visit Provider Internal Medicine
DX: E11.622 Type 2 diabetes mellitus with other skin ulcer (principal); L98.492 Non-pressure chronic ulcer of skin of other sites with fat layer exposed; T81.89XD Other complications of procedures, not elsewhere classified, subsequent encounter; T81.31XD Disruption of external operation (surgical) wound, not elsewhere classified, subsequent encounter; Z98.890 Other specified postprocedural states; R22.2 Localized swelling, mass and lump, trunk
CPT/HCPCS: 11042

== ENCOUNTER 2025-02-11 08:15 | Outpatient (RCR) | payer OTHER, SELFPAY ==
[2025-01-28 08:25] VITALS: BP 148/90; PULSE 79; RESP 16; TEMP 35.8
--- NOTE | 2025-01-28 12:05 | PN.PCM_ITS ---
History of Present Illness Date of Service: 01/28/25 Chief Complaint: Non healing surgical wound History of Wound: Mr. Duque is a 63 yo being managed for surgical wound break down. Has been seen here since September 2023, 1 month after colostomy reversal. Progress of Wound: No acute concerns reported at this time. Some improvement noted since his last visit. Objective Data Objective Data Vital Signs: Vital Signs Temp Pulse Resp BP O2 Del Method 96.4 F L 79 16 148/90 H Room Air 01/28/25 08:25 12 08:25 01/28/25 08:25 01/28/25 08:25 01/28/25 08:25 Oxygen Delivery Method Room Air Charges/Coding Procedures Integumentary 111xxx-113xx: 68290 Hannah subq tissue 20 sq cm/< Physical Exam Const alert, oriented x3 and no apparent distress General Appearance: cooperative, comfortable and well kempt HEENT normocephalic, head/scalp atraumatic and hearing grossly normal bilaterally Eyes EOMs intact bilaterally General Eye: normal appearance of both eyes Neck full ROM and supple General: normal visual inspection Resp normal respiratory effort Effort and Inspection: able to speak in complete sentences GI soft to palpation and non-tender Skin Wounds: wounds noted size Size: See clinical note, bed granulating well, margins well approximated and other, no odor, open and surrounding erythema Neuro oriented x3, CN's II-XII intact bilaterally, moves all extremities and no focal motor deficits Psych mental status grossly normal, thought process normal, cooperative and affect normal Debridement Note Debridement Note Wound debrided: Abdomen (superior) Type of Debridement: Excisional debridement Anesthesia Used: 5% Lidocaine Gel Depth: Down to and including healthy tissue and in the subcutaneous layer Percentage of wound debrided: 100 Instrument Used: 5mm curette Tissue Removed: Devitalized tissue Severity: Fat Layer Exposed Amount of bleeding with debridement: Mild Bleeding Controlled with: Pressure Patient tolerated procedure: Patient tolerated procedure well Post-Debridement Measurements and Additional Note: Post-Debridement Measurements/Treatment WC - Nurse 1 - General Ulcer Assessment Start: 01/28/25 08:25 Freq: Status: Active Protocol: JUSTIN Activity Type Activity Date Activity User E-sign Co-sign Detail Recorded Client Recorded Date Recorded By Document 01/28/25 08:25 TS [id number] 01/28/25 08:30 TS 01/28/25 08:25 - Today's Visit Information Type of service Follow-up Visit (Physician/REAL ESTATE OPERATIONS MANAGER ) Arrival Mode Ambulatory Patient Identification Verified (Name & Yes ) Patient Requires Transmission-Based No Precautions Safety Precautions Fall Prevention Vital Signs Temperature (97.8 F-99.1 F) 96.4 F L Temperature Source Temporal Pulse Rate (60-100) 79 Pulse Location Monitor Respiratory Rate (12-18) 16 Respiratory rate source Observation Oxygen Delivery Method Room Air Blood Pressure (90/60-120/80) 148/90 H Blood Pressure Mean (mm Hg) 109 Source Monitor Position Sitting Blood Pressure Location Left Arm History Since Last Visit- (Skip if this is Patient's initial visit) Have you changed medications since your No last visit? Any new allergies or adverse reactions No Had a fall/change in ADL's that may No increase risk of falls Signs or symptoms of abuse and/or No neglect since last visit Have you been in the hospital since your No last visit? Has dressing in place as prescribed Yes Has compression in place as prescribed N/A Has offloadiing in place as prescribed N/A Experienced any changes in pain level or No management Left Footwear Regular Shoe Right Footwear Regular Shoe Pain Scale: 0-10 Numeric Is Patient Pain Free? No - Nurse 1 - General Ulcer Measurement Start: 01/28/25 08:25 Freq: Status: Active Protocol: Activity Type Activity Date Activity User E-sign Co-sign Detail Recorded Client Recorded Date Recorded By Document 01/28/25 08:25 [id number] 01/28/25 08:30 01/28/25 08:25 Wound Center Nurse 1 4-ABDOMEN INFERIOR -Combined with other wound No -Current Size (cm) - Length 0.7 -Current Size (cm) - Width 0.5 -Current Size (cm) - Depth 0.1 -Total Square Cm 0.35 -Date of Last Picture (Recall this 01/28/25 field) -Photo Taken Yes -Undermining/Tunneling No -Circular Undermining No -Exudate Amt Small -Exudate Type Serosanguineous -Wound Margin Distinct, Outline Attached -Granulation Amt Medium (34-66%) -Granulation Quality [place],Red -Slough/Fibrin No -Structure Exposed None/Limited to Skin Breakdown -Texture (Matilde-wound Skin Appearance) Assessed -Moisture (Matilde-wound Skin Appearance) Assessed -Color (Matilde-wound Skin Appearance) Assessed -Temperature (Matilde-wound Skin No Abnormality Appearance) (Pt Warm) -Tenderness on Palpation (Matilde-wound Yes Skin Appearance) -Ulcer Cleansing Soap and Water -Foul Odor after Cleansing No -Anesthetic Used 5% Lidocaine Gel 3-ABDOMEN SUPERIOR -Combined with other wound No -Current Size (cm) - Length 1 -Current Size (cm) - Width 0.5 -Current Size (cm) - Depth 0.1 -Total Square Cm 0.5 -Date of Last Picture (Recall this 01/28/25 field) -Photo Taken Yes -Undermining/Tunneling No -Circular Undermining No -Exudate Amt Small -Exudate Type Serosanguineous -Granulation Amt Medium (34-66%) -Granulation Quality [place],Red -Slough/Fibrin Yes -Necrosis Amt Small (1-33%) -Structure Exposed None/Limited to Skin Breakdown -Texture (Matilde-wound Skin Appearance) Assessed -Moisture (Matilde-wound Skin Appearance) Assessed -Color (Matilde-wound Skin Appearance) Assessed -Temperature (Matilde-wound Skin No Abnormality Appearance) (Pt Warm) -Ulcer Cleansing Soap and Water -Foul Odor after Cleansing No -Anesthetic Used 5% Lidocaine Gel WC - Nurse 2 - General Ulcer CM Notes Start: 01/28/25 08:25 Freq: Status: Active Protocol: Activity Type Activity Date Activity User E-sign Co-sign Detail Recorded Client Recorded Date Recorded By Document 01/28/25 09:04 [id number] 01/28/25 09:08 01/28/25 09:04 Wound Center Nurse 2 4-ABDOMEN INFERIOR -Time 09:04 -Correct Patient Yes -Correct Side, Site, Position Yes -Correct Procedure Yes -Procedure Performed Yes -Type of Procedure Debridement -Clinical Debridement Subcutaneous -Tissue Removed Subcutaneous -Post Debridement (cm) - Length 0.3 -Post Debridement (cm) - Width 0.4 -Post Debridement (cm) - Depth 0.1 -Total Square (Post) (cm) 0.12 -Area of Debridement (cm) - Length 0.3 -Area of Debridement (cm) - Width 0.4 -Total Square (Area) (cm) 0.12 -Tunneling No -Undermining/Tunneling No -Circular Undermining No -Wound/Ulcer Outcome Not Healed -Ulcer Cleansing Rinsed/ Irrigated with Saline -Foul Odor after Cleansing No -Bioengineered Tissue No -Bleeding Controlled with Pressure -Treatment Response Procedure Tolerated Well -Offloading No -Debridement - Subq, 1st 20sq cm No 3-ABDOMEN SUPERIOR -Time 09:04 -Correct Patient Yes -Correct Side, Site, Position Yes -Correct Procedure Yes -Procedure Performed Yes -Type of Procedure Debridement -Clinical Debridement Subcutaneous -Tissue Removed Subcutaneous -Post Debridement (cm) - Length 1.4 -Post Debridement (cm) - Width 0.7 -Post Debridement (cm) - Depth 0.1 -Total Square (Post) (cm) 0.98 -Area of Debridement (cm) - Length 1.4 -Area of Debridement (cm) - Width 0.7 -Total Square (Area) (cm) 0.98 -Tunneling No -Undermining/Tunneling No -Circular Undermining No -Wound/Ulcer Outcome Not Healed -Ulcer Cleansing Rinsed/ Irrigated with Saline -Foul Odor after Cleansing No -Bioengineered Tissue No -Bleeding Controlled with Pressure -Treatment Response Procedure Tolerated Well -Offloading No -Debridement - Subq, 1st 20sq cm Yes Pain Scale: 0-10 Numeric Is Patient Pain Free? Yes - Nurse 3 - General Ulcer D/C NN Start: 01/28/25 08:25 Freq: Status: Active Protocol: Activity Type Activity Date Activity User E-sign Co-sign Detail Recorded Client Recorded Date Recorded By Document 01/28/25 09:11 TS [id number] 01/28/25 09:12 TS 01/28/25 09:11 Wound Care Center Nurse 3 4-ABDOMEN INFERIOR -Ulcer Cleansing Rinsed/ Irrigated with Saline -Primary Dressing Applied Aquacel Extra, NonAdherent Contact Layer -Other Dressing abd -Primary Dressing Covered/Secured with Secured with Tape -Aquacel Extra 1 3-ABDOMEN SUPERIOR -Ulcer Cleansing Rinsed/ Irrigated with Saline -Primary Dressing Applied Aquacel Extra, NonAdherent Contact Layer -Other Dressing abd -Aquacel Extra 0 Pain Scale: 0-10 Numeric Is Patient Pain Free? Yes WC - Visit Discharge Discharge Condition Stable Ambulatory Status Ambulatory Transportation Private Auto Medication Reconcilliation completed & No provided to patient/care provider Clinical Summary of Care Provided Yes Additional Wound Wound debrided: Abdomen (inferior) Type of Debridement: Excisional debridement Anesthesia Used: 5% Lidocaine Gel Depth: Down to and including healthy tissue and in the subcutaneous layer Percentage of wound debrided: 100 Instrument Used: 5mm curette Tissue Removed: Devitalized tissue Severity: Fat Layer Exposed Amount of bleeding with debridement: Mild Bleeding Controlled with: Pressure Patient tolerated procedure: Patient tolerated procedure well Assessment/Plan Assessment/Plan (1) Non-healing surgical wound: CODE(S): T81.89XA - Other complications of procedures, not elsewhere classified, initial encounter QUALIFIERS: Encounter type: subsequent encounter Qualified Code(s): T81.89XD - Other complications of procedures, not elsewhere classified, subsequent encounter (2) Type 2 diabetes mellitus: CODE(S): E11.9 - Type 2 diabetes mellitus without complications QUALIFIERS: Diabetes mellitus immigration judge insulin use: without chcf use Diabetes mellitus complication status: with skin complications Diabetes mellitus complication detail: with other skin complication Qualified Code(s): E11.628 - Type 2 diabetes mellitus with other skin complications (3) History of colostomy reversal: CODE(S): Z98.890 - Other specified postprocedural states (4) Surgical wound breakdown: CODE(S): T81.31XA - Disruption of external operation (surgical) wound, not elsewhere classified, initial encounter QUALIFIERS: Encounter type: subsequent encounter Qualified Code(s): T81.31XD - Disruption of external operation (surgical) wound, not elsewhere classified, subsequent encounter (5) Localized swelling of abdominal wall: CODE(S): R22.2 - Localized swelling, mass and lump, trunk (6) Skin ulcer of abdomen with fat layer exposed: CODE(S): L98.492 - Non-pressure chronic ulcer of skin of other sites with fat layer exposed PLAN: Plan Debridement done as documented above, procedure was well-tolerated. No acute concerns reported at this time. Some improvement noted. Continue Aquacel extra and cover with Adaptic/gauze. Gauze/foam dressing over area of retained surgical product. Continue other chronic wound care management. Continue optimal diabetes control. He was advised to let us know if he had any further questions or concerns. Follow-up in 2 weeks or sooner if needed.. This note was generated with [employer] software. It may contain incorrect words, spelling, and punctuation that were not noted in checking the note before signing.
--- NOTE | 2025-01-29 08:50 | WC ---
PHOTO-ABD SUP 01/28/25
--- NOTE | 2025-01-29 08:53 | WC ---
PHOTO-INF ABD 01/28/25
[2025-02-11 08:35] VITALS: BP 147/79; PULSE 81; RESP 18; TEMP 36.3
--- NOTE | 2025-02-11 13:02 | PCM.WC.PN ---
History of Present Illness Date of Service: 02/11/25 Chief Complaint: Non healing surgical wound History of Wound: Mr. Dquue is a 63 yo being managed for surgical wound break down. Has been seen here since September 2023, 1 month after colostomy reversal. Progress of Wound: No new concerns reported at this time. Overall, Stable. Objective Data Objective Data Vital Signs: Vital Signs Temp Pulse Resp BP O2 Del Method 97.3 F L 81 18 147/79 H Room Air 02/11/25 08:35 02/11/25 08:35 02/11/25 08:35 02/11/25 08:35 02/11/25 08:35 Oxygen Delivery Method Room Air Charges/Coding Procedures Integumentary 111xxx-113xx: 46186 Hannah subq tissue 20 sq cm/< Physical Exam Const alert, oriented x3 and no apparent distress General Appearance: cooperative, comfortable and well kempt HEENT normocephalic, head/scalp atraumatic and hearing grossly normal bilaterally Eyes EOMs intact bilaterally General Eye: normal appearance of both eyes Neck full ROM and supple General: normal visual inspection Resp normal respiratory effort Effort and Inspection: able to speak in complete sentences GI soft to palpation and non-tender Skin Wounds: wounds noted size Size: See clinical note, bed granulating well, margins well approximated and other, no odor, open and surrounding erythema Neuro oriented x3, CN's II-XII intact bilaterally, moves all extremities and no focal motor deficits Psych mental status grossly normal, thought process normal, cooperative and affect normal Debridement Note Debridement Note Wound debrided: Abdomen (superior) Type of Debridement: Excisional debridement Anesthesia Used: 5% Lidocaine Gel Depth: Down to and including healthy tissue and in the subcutaneous layer Percentage of wound debrided: 100 Instrument Used: 3mm curette Tissue Removed: Slough and devitalized tissue Severity: Fat Layer Exposed Amount of bleeding with debridement: Mild Bleeding Controlled with: Pressure Patient tolerated procedure: Patient tolerated procedure well Post-Debridement Measurements and Additional Note: Post-Debridement Measurements/Treatment WC - Nurse 1 - General Ulcer Assessment Start: 01/28/25 08:25 Freq: Status: Active Protocol: JUSTIN Activity Type Activity Date Activity User E-sign Co-sign Detail Recorded Client Recorded Date Recorded By Document 01/28/25 08:25 TS [id number] 01/28/25 08:30 TS Document 02/11/25 08:35 RB [id number] 02/11/25 08:38 RB 01/28/25 02/11/25 08:25 08:35 - Today's Visit Information Type of service Follow-up Visit Follow-up Visit (Physician/TRUCKSMITH (Physician/TRUCKSMITH ) ) Arrival Mode Ambulatory Ambulatory Transfer Assistance None Patient Identification Verified (Name & Yes Yes ) Patient Requires Transmission-Based No No Precautions Safety Precautions Fall Prevention Vital Signs Temperature (97.8 F-99.1 F) 96.4 F L 97.3 F L Temperature Source Temporal Temporal Pulse Rate (60-100) 79 81 Pulse Location Monitor Monitor Respiratory Rate (12-18) 16 18 Respiratory rate source Observation Observation Oxygen Delivery Method Room Air Room Air Blood Pressure (90/60-120/80) 148/90 H 147/79 H Blood Pressure Mean (mm Hg) 109 101 Source Monitor Monitor Position Sitting Semi-Fowlers Blood Pressure Location Left Arm Left Arm History Since Last Visit- (Skip if this is Patient's initial visit) Have you changed medications since your No No last visit? Any new allergies or adverse reactions No No Had a fall/change in ADL's that may No No increase risk of falls Signs or symptoms of abuse and/or No No neglect since last visit Have you been in the hospital since your No No last visit? Has dressing in place as prescribed Yes Yes Has compression in place as prescribed N/A Yes Has offloadiing in place as prescribed N/A N/A Experienced any changes in pain level or No No management Left Footwear Regular Shoe Right Footwear Regular Shoe Pain Scale: 0-10 Numeric Is Patient Pain Free? No Yes - Nurse 1 - General Ulcer Measurement Start: 01/28/25 08:25 Freq: Status: Active Protocol: Activity Type Activity Date Activity User E-sign Co-sign Detail Recorded Client Recorded Date Recorded By Document 01/28/25 08:25 TS [id number] 01/28/25 08:30 TS Document 02/11/25 08:35 RB [id number] 02/11/25 08:38 RB 01/28/25 02/11/25 08:25 08:35 Wound Center Nurse 1 4-ABDOMEN INFERIOR -Combined with other wound No No -Current Size (cm) - Length 0.7 0.1 -Current Size (cm) - Width 0.5 0.1 -Current Size (cm) - Depth 0.1 0.1 -Total Square Cm 0.35 0.01 -Date of Last Picture (Recall this 01/28/25 02/11/25 field) -Photo Taken Yes Yes -Tunneling No -Undermining/Tunneling No No -Circular Undermining No No -Exudate Amt Small Small -Exudate Type Serosanguineous Serosanguineous -Wound Margin Distinct, Distinct, Outline Outline Attached Attached -Granulation Amt Medium (34-66%) Medium (34-66%) -Granulation Quality [place] -Slough/Fibrin No Yes -Necrosis Amt Medium (34-66%) -Necrotic Tissue Type Adherent Slough -Structure Exposed None/Limited to N/A Skin Breakdown -Texture (Matilde-wound Skin Appearance) Assessed Assessed, Scarring -Moisture (Matilde-wound Skin Appearance) Assessed Assessed -Color (Matilde-wound Skin Appearance) Assessed Assessed -Temperature (Matilde-wound Skin No Abnormality No Abnormality Appearance) (Pt Warm) (Pt Warm) -Tenderness on Palpation (Matilde-wound Yes No Skin Appearance) -Ulcer Cleansing Soap and Water Wound Cleanser -Foul Odor after Cleansing No No -Anesthetic Used 5% Lidocaine 5% Lidocaine Gel Gel 3-ABDOMEN SUPERIOR -Combined with other wound No No -Current Size (cm) - Length 1 0.3 -Current Size (cm) - Width 0.5 0.3 -Current Size (cm) - Depth 0.1 0.1 -Total Square Cm 0.5 0.09 -Date of Last Picture (Recall this 01/28/25 02/11/25 field) -Photo Taken Yes Yes -Tunneling No -Undermining/Tunneling No No -Circular Undermining No No -Exudate Amt Small Medium -Exudate Type Serosanguineous Serosanguineous -Wound Margin Distinct, Outline Attached -Granulation Amt Medium (34-66%) Medium (34-66%) -Granulation Quality [place] -Slough/Fibrin Yes Yes -Necrosis Amt Small (1-33%) Medium (34-66%) -Necrotic Tissue Type Adherent Slough -Structure Exposed None/Limited to N/A Skin Breakdown -Texture (Matilde-wound Skin Appearance) Assessed Assessed, Scarring -Moisture (Matilde-wound Skin Appearance) Assessed Assessed -Color (Matilde-wound Skin Appearance) Assessed Assessed -Temperature (Matilde-wound Skin No Abnormality No Abnormality Appearance) (Pt Warm) (Pt Warm) -Tenderness on Palpation (Matilde-wound No Skin Appearance) -Ulcer Cleansing Soap and Water Wound Cleanser -Foul Odor after Cleansing No No -Anesthetic Used 5% Lidocaine 5% Lidocaine Gel Gel WC - Nurse 2 - General Ulcer CM Notes Start: 01/28/25 08:25 Freq: Status: Active Protocol: Activity Type Activity Date Activity User E-sign Co-sign Detail Recorded Client Recorded Date Recorded By Document 01/28/25 09:04 [id number] 01/28/25 09:08 Document 02/11/25 09:09 [id number] 02/11/25 09:14 01/28/25 02/11/25 09:04 09:09 Wound Center Nurse 2 4-ABDOMEN INFERIOR -Time 09:04 09:09 -Correct Patient Yes Yes -Correct Side, Site, Position Yes Yes -Correct Procedure Yes Yes -Procedure Performed Yes Yes -Type of Procedure Debridement Debridement -Clinical Debridement Subcutaneous Subcutaneous -Tissue Removed Subcutaneous Subcutaneous -Post Debridement (cm) - Length 0.3 0.4 -Post Debridement (cm) - Width 0.4 0.4 -Post Debridement (cm) - Depth 0.1 0.1 -Total Square (Post) (cm) 0.12 0.16 -Area of Debridement (cm) - Length 0.3 0.4 -Area of Debridement (cm) - Width 0.4 0.4 -Total Square (Area) (cm) 0.12 0.16 -Tunneling No No -Undermining/Tunneling No No -Circular Undermining No No -Wound/Ulcer Outcome Not Healed Not Healed -Ulcer Cleansing Rinsed/ Rinsed/ Irrigated with Irrigated with Saline Saline -Foul Odor after Cleansing No No -Bioengineered Tissue No No -Bleeding Controlled with Pressure Pressure -Treatment Response Procedure Procedure Tolerated Well Tolerated Well -Offloading No No -Debridement - Subq, 1st 20sq cm No No 3-ABDOMEN SUPERIOR -Time 09:04 09:09 -Correct Patient Yes Yes -Correct Side, Site, Position Yes Yes -Correct Procedure Yes Yes -Procedure Performed Yes Yes -Type of Procedure Debridement Debridement -Clinical Debridement Subcutaneous Subcutaneous -Tissue Removed Subcutaneous Subcutaneous -Post Debridement (cm) - Length 1.4 0.7 -Post Debridement (cm) - Width 0.7 0.3 -Post Debridement (cm) - Depth 0.1 0.1 -Total Square (Post) (cm) 0.98 0.21 -Area of Debridement (cm) - Length 1.4 0.7 -Area of Debridement (cm) - Width 0.7 0.3 -Total Square (Area) (cm) 0.98 0.21 -Tunneling No No -Undermining/Tunneling No No -Circular Undermining No No -Wound/Ulcer Outcome Not Healed Not Healed -Ulcer Cleansing Rinsed/ Rinsed/ Irrigated with Irrigated with Saline Saline -Foul Odor after Cleansing No No -Bioengineered Tissue No No -Bleeding Controlled with Pressure Pressure -Treatment Response Procedure Procedure Tolerated Well Tolerated Well -Offloading No No -Debridement - Subq, 1st 20sq cm Yes Yes Pain Scale: 0-10 Numeric Is Patient Pain Free? Yes Yes - Nurse 3 - General Ulcer D/C NN Start: 01/28/25 08:25 Freq: Status: Active Protocol: Activity Type Activity Date Activity User E-sign Co-sign Detail Recorded Client Recorded Date Recorded By Document 01/28/25 09:11 TS [id number] 01/28/25 09:12 TS Document 02/11/25 09:46 TS [id number] 02/11/25 09:48 TS 01/28/25 02/11/25 09:11 09:46 Wound Care Center Nurse 3 4-ABDOMEN INFERIOR -Ulcer Cleansing Rinsed/ Irrigated with Saline -Primary Dressing Applied Aquacel Extra, Aquacel AG 4x4, NonAdherent NonAdherent Contact Layer Contact Layer -Other Dressing abd abd -Primary Dressing Covered/Secured with Secured with Secured with Tape Tape -Aquacel Extra 1 -Aquacel AG 4x4 1 3-ABDOMEN SUPERIOR -Ulcer Cleansing Rinsed/ Irrigated with Saline -Primary Dressing Applied Aquacel Extra, Aquacel AG 4x4, NonAdherent NonAdherent Contact Layer Contact Layer -Other Dressing abd abd -Primary Dressing Covered/Secured with Secured with Tape -Aquacel Extra 0 -Aquacel AG 4x4 0 Pain Scale: 0-10 Numeric Is Patient Pain Free? Yes Yes WC - Visit Discharge Discharge Condition Stable Stable Ambulatory Status Ambulatory Ambulatory Transportation Private Auto Private Auto Accompanied by Medication Reconcilliation completed & No No provided to patient/care provider Clinical Summary of Care Provided Yes Yes Additional Wound Wound debrided: Abdomen (inferior) Type of Debridement: Excisional debridement Anesthesia Used: 5% Lidocaine Gel Depth: Down to and including healthy tissue and in the subcutaneous layer Percentage of wound debrided: 100 Instrument Used: 3mm curette Tissue Removed: Slough and devitalized tissue Severity: Fat Layer Exposed Amount of bleeding with debridement: Mild Bleeding Controlled with: Pressure Patient tolerated procedure: Patient tolerated procedure well Assessment/Plan Assessment/Plan (1) Non-healing surgical wound: CODE(S): T81.89XA - Other complications of procedures, not elsewhere classified, initial encounter QUALIFIERS: Encounter type: subsequent encounter Qualified Code(s): T81.89XD - Other complications of procedures, not elsewhere classified, subsequent encounter (2) Type 2 diabetes mellitus: CODE(S): E11.9 - Type 2 diabetes mellitus without complications QUALIFIERS: Diabetes mellitus half-way insulin use: without buttermaker use Diabetes mellitus complication status: with skin complications Diabetes mellitus complication detail: with other skin complication Qualified Code(s): E11.628 - Type 2 diabetes mellitus with other skin complications (3) History of colostomy reversal: CODE(S): Z98.890 - Other specified postprocedural states (4) Surgical wound breakdown: CODE(S): T81.31XA - Disruption of external operation (surgical) wound, not elsewhere classified, initial encounter QUALIFIERS: Encounter type: subsequent encounter Qualified Code(s): T81.31XD - Disruption of external operation (surgical) wound, not elsewhere classified, subsequent encounter (5) Localized swelling of abdominal wall: CODE(S): R22.2 - Localized swelling, mass and lump, trunk (6) Skin ulcer of abdomen with fat layer exposed: CODE(S): L98.492 - Non-pressure chronic ulcer of skin of other sites with fat layer exposed PLAN: Plan Debridement done as documented above, procedure was well-tolerated. No acute concerns reported at this time. Some improvement noted. Continue Aquacel extra and cover with Adaptic/gauze. Gauze/foam dressing over area of retained surgical product. Continue other chronic wound care management. Continue optimal diabetes control. He was advised to let us know if he had any further questions or concerns. Follow-up in 3 weeks or sooner if needed.. This note was generated with [employer] software. It may contain incorrect words, spelling, and punctuation that were not noted in checking the note before signing.
--- NOTE | 2025-02-12 09:20 | WC ---
PHOTO-ABD SUP 02/11/25
--- NOTE | 2025-02-12 09:21 | WC ---
PHOTO-ABD INF 02/11/25
== END 2025-02-24 23:59 | disposition home or self-care (01) ==
LOC: WC 08:15
PROVIDERS: PCP Internal Medicine; Referring Provider Internal Medicine; Visit Provider Internal Medicine
DX: E11.622 Type 2 diabetes mellitus with other skin ulcer (principal); L98.492 Non-pressure chronic ulcer of skin of other sites with fat layer exposed; T81.89XD Other complications of procedures, not elsewhere classified, subsequent encounter; R22.2 Localized swelling, mass and lump, trunk; Z98.890 Other specified postprocedural states; T81.31XD Disruption of external operation (surgical) wound, not elsewhere classified, subsequent encounter
CPT/HCPCS: 11042